=== PATIENT | male | born 1965 | race Caucasian/White ===

== ENCOUNTER 2016-11-03 12:56 | Emergency (ER) | payer MEDICARE, MEDICAID | END 2016-11-03 13:54 | disposition left against medical advice (07) | LOC: UCCORT 12:56 | DX: M79.672 Pain in left foot (principal); Z53.21 Procedure and treatment not carried out due to patient leaving prior to being seen by health care provider ==

== ENCOUNTER 2016-11-04 10:59 | Emergency (ER) | payer MEDICARE, MEDICAID | END 2016-11-04 14:00 | disposition left against medical advice (07) | LOC: UCEAST 10:59 | DX: R21 Rash and other nonspecific skin eruption (principal); Z53.21 Procedure and treatment not carried out due to patient leaving prior to being seen by health care provider ==

== ENCOUNTER 2017-01-16 11:32 | Inpatient (IN) | payer MEDICARE, MEDICAID ==
[2017-01-16] MEDS ORDERED: Aspirin Low Dose CHEW TAB* 81 MG PO ONE (12:02)
[2017-01-16] MEDS ORDERED: NS 0.9% 1000 ML* 1,000 ML IV ONE (12:02)
--- NOTE | 2017-01-16 12:37 | RAD ---
INDICATION: Diabetes mellitus, hypertension and weakness. COMPARISON: Comparison is made with a prior chest x-ray study from November 09, 2015. TECHNIQUE: Dual-energy PA and lateral views of the chest were obtained. FINDINGS: The heart is within normal limits in size. Mediastinal and hilar contours appear within normal limits. The lungs are clear. No pleural effusion is present. IMPRESSION: NO EVIDENCE FOR ACTIVE CARDIOPULMONARY DISEASE.
[2017-01-16 12:56] LABS: Hematocrit 29 % (42-52); Hemoglobin 9.2 g/dl (14.0-18.0); Mean Corpuscular HGB Conc 32 g/dl (31-36); Mean Corpuscular Hemoglobin 27 pg (27-31); Mean Corpuscular Volume 85 fL (80-94); Mean Platelet Volume 8 um3 (7.4-10.4); Red Blood Count 3.41 10^6/ul (4.0-5.4); Red Cell Distribution Width 15 % (10.5-15); White Blood Count 7.7 10^3/ul (3.5-10.8)
[2017-01-16 13:12] LABS: Albumin 3.2 g/dL (3.2-5.2); BUN/Creatinine Ratio 17.3 (8-20); Calcium 9.3 mg/dL (8.6-10.3); EGFR African American 24.7 (>60); EGFR Non-African American 19.2 (>60); Globulin 4.1 g/dL (2-4); Magnesium 1.9 mg/dL (1.9-2.7); Potassium 5.7 mmol/L (3.5-5.0); Total Bilirubin 0.3 mg/dL (0.2-1.0); Total Protein 7.3 g/dL (6.4-8.9)
[2017-01-16 13:14] LABS: Troponin I 0.01 ng/mL (<0.04)
[2017-01-16 13:43] LABS: TSH (Thyroid Stimulating Horm) 1.22 mcIU/mL (0.34-5.60)
[2017-01-16] MEDS ORDERED: Dextrose 50% Syringe 50 ML* 25 GM/50 ML SYRINGE IV PUSH PRN (16:52)
[2017-01-16] MEDS: Insulin LISPRO* 1 UNITS UNIT SUBCUT SCH ×2 (17:55→20:37)
--- NOTE | 2017-01-16 17:57 | ADMNOTE ---
Subjective Date of Service: 01/16/17 Interval History: ADMISSION HISTORY AND PHYSICAL EXAM: Allergies Allergy/AdvReac Type Severity Reaction Status Date / Time Spinach Allergy Swelling Verified 01/16/17 11:59 Sulfamethoxazole Allergy KIDNEY Verified 01/16/17 10:57 w/Trimethoprim PROBLEMS [From Bactrim] Codeine AdvReac Intermediate Dizziness Verified 01/16/17 10:56 Peanutbutter Allergy Intermediate Vomiting Uncoded 01/16/17 10:56 Strawberries Allergy Intermediate Swelling Uncoded 01/16/17 10:56 Home Medications Medication Instructions Recorded Confirmed Type Furosemide TAB* [Lasix TAB*] 40 mg PO DAILY 06/30/15 01/16/17 History Lisinopril/HCTZ (NF) 1 tab PO DAILY 06/30/15 01/16/17 History [Zestoretic (NF)] Insulin Regular (Human) [Novolin R 10 unit INJ TID 07/07/15 01/16/17 History Relion] Insulin Glargine (Nf) [Toujeo 70 unit SUBCUT DAILY 12/16/15 01/16/17 History Solostar] Ferrous Sulfate TAB* 325 mg PO BID 01/16/17 01/16/17 History LORazepam TAB(*) [Ativan 0.5 MG 0.5 mg PO ONCE PRN 01/16/17 01/16/17 History TAB (*)] Levofloxacin TAB* [Levaquin TAB*] 500 mg PO DAILY 01/16/17 01/16/17 History Nifedipine [Nifedical Xl] 60 mg PO QAM 01/16/17 01/16/17 History Ranitidine TAB (NF) [Zantac TAB 150 mg PO BID 01/16/17 01/16/17 History (NF)] cefTRIAXone(*) [Rocephin(*)] 2 gm IV DAILY 01/16/17 01/16/17 History The patient was in his usual state of health this AM. He ate breakfast, took his AM meds including long-acting insulin and levofloxacin. He came to the hospital for his scheduled pre-admission testing. He became lightheaded and very diaphoretic. He appeared very pale to the hospital staff. He sat down and was brought the ED. He has since recovered. He did not have chest pain, SOB, cough, palpitations. He has never had anything this severe before. Family History: Findings - Mother breast ca, DM. Father Alzheimer's, DM Social History: Findings - Quit smoking 4 years ago. No alcohol abuse. Disabled. SDM friend Rolando Holguin Past Medical History: Findings - R great toe amputation, cataract surgery Review of Systems - Review of Systems Constitutional Symptoms: Negative: Weight Gain, Weight Loss, Weakness, Fatigue, Fever, Night Sweats, Unexplained Falls, Other Dermatology: Positive: Normal HEENT: Positive: Normal Eyes: Positive: Normal Thyroid: Positive: Normal Pulmonary: Positive: Normal Cardiology: Positive: Faintness Gastroenterology: Positive: Normal Genital - Urinary: Positive: Normal Musculoskeletal: Positive: Other - Occ pain L calf Endocrinology: Positive: Obesity, Diabetes Mellitus Hematologic/Lymphatic: Positive: Anemia Neurology: Positive: Normal Psychiatry: Positive: Normal Allergic/Immunologic: Negative: Hx Anaphylaxis, Hx Angioedema, Hx Environmental, Hx Seasonal, Athsma, Hx HIV, Immunocompromise, Swollen Glands LymphNodes, Other Objective Active Medications: Dextrose (D50w Syringe 50 Ml*) 12.5 gm IV PUSH .FOR FS < 60 - SS PRN PRN Reason: FS < 60 Insulin Human Lispro (Humalog*) 0 units SUBCUT ACHS JOSE ENRIQUE PRN Reason: Protocol Vital Signs 01/16/17 01/16/17 16:53 16:54 Pulse Rate 72 Blood Pressure 115/70 (mmHg) O2 Sat by Pulse 98 Oximetry Oxygen Devices in Use Now: None Appearance: Alert, partly up on ED stretcher. In good spirits. Looks comfortable. Eyes: No Scleral Icterus Ears/Nose/Mouth/Throat: Clear Oropharnyx, Mucous Membranes Moist Neck: NL Appearance and Movements; NL JVP, No Thyroid Enlargement, Masses Respiratory: Symmetrical Chest Expansion and Respiratory Effort, Clear to Auscultation, Clear to Percussion Cardiovascular: NL Sounds; No Murmurs; No JVD, RRR, No Edema, - Abdominal: NL Sounds; No Tenderness; No Distention, No Hepatosplenomegaly, - Extremities: No Edema, No Clubbing, Cyanosis, - - L foot in hard brace Neurological: Alert and Oriented x 3, NL Sensation Result Diagrams: 01/16/17 12:41 01/16/17 12:41 Assess/Plan/Problems-Billing Assessment: - Patient Problems (1) Pre-syncope Current Visit: Yes Status: Acute Comment: Possible arrhythmia or ischemia. Tele, second troponin, echo, chemical stress test. (2) Osteomyelitis of ankle or foot Current Visit: Yes Status: Acute Code(s): M86.9 - OSTEOMYELITIS, UNSPECIFIED SNOMED Code(s): 52145614 Comment: Continue po levofloxacin. Hopefully he will pass cardiac eval and be able to have his scheduled L forefoot amputation. (3) Diabetes Current Visit: Yes Status: Acute Code(s): E11.9 - TYPE 2 DIABETES MELLITUS WITHOUT COMPLICATIONS SNOMED Code(s): 41953140 Comment: Lantus 70 U q AM and Lispro by SS ordered. (4) CKD (chronic kidney disease) Current Visit: Yes Status: Acute Code(s): N18.9 - CHRONIC KIDNEY DISEASE, UNSPECIFIED SNOMED Code(s): 639341059 Comment: Acute change from 7 days previous to admission probable DIONTE on CKD. Got 1 L in ED, give NSS at 100 ml/h, repeat BMP 01/17. Hold furosemide. (5) Anemia of chronic disease Current Visit: Yes Status: Acute Code(s): D63.8 - ANEMIA IN OTHER CHRONIC DISEASES CLASSIFIED ELSEWHERE SNOMED Code(s): 101078621 Comment: Stable. (6) Morbid obesity Current Visit: Yes Status: Acute Code(s): E66.01 - MORBID (SEVERE) OBESITY DUE TO EXCESS CALORIES SNOMED Code(s): 193177760 Comment: BMI 40.9.
[2017-01-16 19:00] LABS: Ferritin 237.8 ng/mL (24-336)
[2017-01-16] MEDS ORDERED: Sodium Polystyrene ORAL.SOL* 15 GM/60 ML BTL PO ONE (19:00)
[2017-01-16] MEDS: NS 0.9% 1000 ML* 1,000 ML IV SCH (19:16)
[2017-01-16] MEDS: Famotidine TAB* 20 MG PO SCH (20:37)
[2017-01-16] MEDS: Heparin VIAL(*) 5000 UNITS/ML VIAL (FIVE THOUSAND) SUBCUT SCH (20:38)
--- NOTE | 2017-01-16 21:30 | ED ---
micheline Cabral Timothy, scribed for Virginia Silva MD on 01/16/17 at 1208 . Complex/Multi-Sys Presentation - HPI Summary HPI Summary: Tanner Galo is a 51 yo male presenting to [facility] with weakness for the past 3 months, worsening throughout. Pt states he feels better with rest. Pt was a [facility] for pre-admission for amputation of LLE. Pt is lethargic and pale per triage, with a Hx of DM and HTN. He states he has chest heaviness, and has had it for the past 3 months, gradually increasing throughout. Pt also has pain under his left arm, with numbness in the left arm as well. He denies any current pain. His MHx includes HTN, DM, MRSA 2007. - History Of Current Complaint Chief Complaint: EDAltMentalStatus Time Seen by Provider: 01/16/17 12:02 Hx Obtained From: Patient Onset/Duration: Gradual Onset, Lasting Weeks, Still Present, Worse Since - now Timing: Constant Severity Currently: Moderate Severity Initially: Moderate Location: Pain At: - heaviness in the chest Character: Dull Associated Signs And Symptoms: Positive: Weakness, Chest Pain - "heaviness" - Allergies/Home Medications Allergies/Adverse Reactions: Allergies Allergy/AdvReac Type Severity Reaction Status Date / Time Spinach Allergy Swelling Verified 01/16/17 11:59 Sulfamethoxazole Allergy KIDNEY Verified 01/16/17 10:57 w/Trimethoprim PROBLEMS [From Bactrim] Codeine AdvReac Intermediate Dizziness Verified 01/16/17 10:56 Peanutbutter Allergy Intermediate Vomiting Uncoded 01/16/17 10:56 Strawberries Allergy Intermediate Swelling Uncoded 01/16/17 10:56 Home Medications: Home Medications Ferrous Sulfate TAB* 325 mg PO BID 01/16/17 [History Confirmed 01/16/17] LORazepam TAB(*) [Ativan 0.5 MG TAB (*)] 0.5 mg PO ONCE PRN 01/16/17 [History Confirmed 01/16/17] Levofloxacin TAB* [Levaquin TAB*] 500 mg PO DAILY 01/16/17 [History Confirmed ] Nifedipine [Nifedical Xl] 60 mg PO QAM 01/16/17 [History Confirmed 01/16/17] Ranitidine TAB (NF) [Zantac TAB (NF)] 150 mg PO BID 01/16/17 [History Confirmed 01/16/17] cefTRIAXone(*) [Rocephin(*)] 2 gm IV DAILY 01/16/17 [History Confirmed 01/16/17] PMH/Surg Hx/FS Hx/Imm Hx Previously Healthy: No - diabetic foot ulcer/osteomyelitis Endocrine/Hematology History: Reports: Hx Diabetes Denies: Hx Systemic Lupus Erythematosus, Hx Thyroid Disease Cardiovascular History: Reports: Hx Hypertension Denies: Hx Congestive Heart Failure, Hx Pacemaker/ICD Respiratory History: Denies: Hx Asthma, Hx Chronic Obstructive Pulmonary Disease (COPD) GI History: Denies: Hx Ulcer History: Denies: Hx Dialysis, Hx Renal Disease Musculoskeletal History: Denies: Hx Rheumatoid Arthritis Sensory History: Reports: Hx Cataracts Denies: Hx Contacts or Glasses, Hx Hearing Aid Opthamlomology History: Reports: Hx Cataracts Denies: Hx Contacts or Glasses Psychiatric History: Denies: Hx Panic Disorder - Cancer History Hx Chemotherapy: No - Surgical History Surgery Procedure, Year, and Place: right big toe amputation dt diab, pin in big toe of left foot. CATARACT WITH LENS IMPLANTS - BY DR DENNEY. Pt had an ulcer on the bottom of his left foot that turned gangreen 07/2016. Hx Anesthesia Reactions: No Infectious Disease History: Yes Infectious Disease History: Reports: Hx of Known/Suspected MRSA - 2007 in chest Denies: Hx Hepatitis, Hx Human Immunodeficiency Virus (HIV), History Other Infectious Disease, Traveled Outside the [place] in Last 30 Days - Family History Known Family History: Positive: Diabetes Negative: Cardiac Disease - Social History Alcohol Use: None Substance Use Type: Reports: None Substance Use Comment - Amount & Last Used: CHEWING TOBACCO Smoking Status (MU): Light Every Day Tobacco Smoker Type: Cigarettes, Smokeless Tobacco Amount Used/How Often: daily Length of Time of Smoking/Using Tobacco: 20 YEARS Have You Smoked in the Last Year: No Review of Systems Constitutional: Negative Eyes: Negative ENT: Negative Positive: Chest Pain - "heaviness" Respiratory: Negative Gastrointestinal: Negative Genitourinary: Negative Musculoskeletal: Other - pain left arm Skin: Other - pale Positive: Weakness, Numbness - left arm Psychological: Normal All Other Systems Reviewed And Are Negative: Yes Physical Exam Triage Information Reviewed: Yes Vital Signs On Initial Exam: Initial Vitals Temp Pulse Resp BP Pulse Ox 96.3 F 97 20 104/65 100 04/17/17 11:34 01/16/17 11:34 01/16/17 11:34 01/16/17 11:34 01/16/17 11:34 Vital Signs Reviewed: Yes Appearance: Positive: No Pain Distress, Well-Nourished, Ill-Appearing Skin: Positive: Warm, Dry, Pale Head/Face: Positive: Normal Head/Face Inspection Eyes: Positive: EOMI, Conjunctiva Clear ENT: Positive: Normal ENT inspection Neck: Positive: Supple, Nontender Respiratory/Lung Sounds: Positive: Clear to Auscultation, Breath Sounds Present Cardiovascular: Positive: RRR, Pulses are Symmetrical in both Upper and Lower Extremities. Negative: Murmur, Rub, Other - gallop Abdomen Description: Positive: Nontender, Soft Bowel Sounds: Positive: Present Musculoskeletal: Positive: Strength/ROM Intact, Other - wearing post op shoe left foot, wound not assessed in ED, due for amputation left foot with Dr. Galarza, had pre-adm testing scheduled today Neurological: Positive: Alert, Oriented to Person Place, Time. Negative: Focal Deficit @ Psychiatric: Positive: Normal, Affect/Mood Appropriate Diagnostics - Vital Signs Vital Signs Temp Pulse Resp BP Pulse Ox 01/16/17 11:57 98.3 F 87 18 117/67 97 01/16/17 11:34 96.3 F 97 20 104/65 100 - Laboratory Lab Results: Lab Results 01/16/17 01/16/17 01/16/17 Range/Units 12:41 12:41 12:41 WBC 7.7 (3.5-10.8) 10^3/ul RBC 3.41 L (4.0-5.4) 10^6/ul Hgb 9.2 L (14.0-18.0) g/dl Hct 29 L (42-52) % MCV 85 (80-94) fL MCH 27 (27-31) pg MCHC 32 (31-36) g/dl RDW 15 (10.5-15) % Plt Count 210 (150-450) 10^3/ul MPV 8 (7.4-10.4) um3 Neut % (Auto) 75.0 (38-83) % Lymph % (Auto) 12.6 L (25-47) % [place] % (Auto) 9.6 H (1-9) % Eos % (Auto) 2.0 (0-6) % Baso % (Auto) 0.8 (0-2) % Absolute Neuts (auto) 5.8 (1.5-7.7) 10^3/ul Absolute Lymphs (auto) 1.0 (1.0-4.8) 10^3/ul Absolute Monos (auto) 0.7 (0-0.8) 10^3/ul Absolute Eos (auto) 0.2 (0-0.6) 10^3/ul Absolute Basos (auto) 0.1 (0-0.2) 10^3/ul Absolute Nucleated RBC 0 10^3/ul Nucleated RBC % 0 APTT 32.2 (26.0-36.3) seconds Sodium 132 L (133-145) mmol/L Potassium 5.7 H (3.5-5.0) mmol/L Chloride 102 (101-111) mmol/L Carbon Dioxide 22 (22-32) mmol/L Anion Gap 8 (2-11) mmol/L BUN 59 H (6-24) mg/dL Creatinine 3.42 H (0.67-1.17) mg/dL Est GFR ( Amer) 24.7 (>60) Est GFR (Non-Af Amer) 19.2 (>60) BUN/Creatinine Ratio 17.3 (8-20) Glucose 154 H (70-100) mg/dL Calcium 9.3 (8.6-10.3) mg/dL Magnesium 1.9 (1.9-2.7) mg/dL Ferritin 237.8 (24-336) ng/mL Total Bilirubin 0.30 (0.2-1.0) mg/dL AST 11 L (13-39) U/L ALT 9 (7-52) U/L Alkaline Phosphatase 83 (34-104) U/L Total Creatine Kinase 42 (10-223) U/L CK-MB (CK-2) 1.3 (0.6-6.3) ng/mL Troponin I 0.01 (<0.04) ng/mL Total Protein 7.3 (6.4-8.9) g/dL Albumin 3.2 (3.2-5.2) g/dL Globulin 4.1 H (2-4) g/dL Albumin/Globulin Ratio 0.8 L (1-3) TSH 1.22 (0.34-5.60) mcIU/mL Result Diagrams: 01/16/17 12:41 01/16/17 12:41 Lab Statement: Any lab studies that have been ordered have been reviewed, and results considered in the medical decision making process. - Radiology CXR Xray Interpretation: No Acute Changes - IMPRESSION: NO EVIDENCE FOR ACTIVE CARDIOPULMONARY DISEASE. Radiology Interpretation Completed By: Radiologist - EKG 1142 Cardiac Rate: NL - 83 BPM EKG Interpretation: NSR @ 83 BPM, nml AV/IV conduction, PRWP V1, V2. Q in III. No acute changes EKG Comparison: No Significant Change - compared to 01/09/13 Re-Evaluation - Re-Evaluation First Eval Re-Evaluation Time: 15:44 Change: Unchanged Comment: Pt is informed of results of his lab work. He is hyperkalemic with high creatinine, and with his chest pain history, it is unlikely he will be able to have his LLE amputated as scheduled. Metabolic abnormalities and cardiac status will need evaluation in hospital. Pt is agreeable to be admitted. Complex Multi-Symp Course/Dx Assessment/Plan: Tanner Galo is a 51 yo male [facility] with weakness, and chest pain for the past 3 months, gradually worsening throughout. He is scheduled for an amputation of his LLE due to his DM. In the ED he received IV fluids and ASA. His EKG shows PRWP in V1 and V2. His CXR suggests no acute disease. After clinical examination and review of his EKG, CXR, and lab work, as well as discussion with Dr. Thomas, he will be admitted to [facility] for further evaluation and treatment. - Diagnoses Provider Diagnoses: Chest pain, Hyperkalemia, Stage 4 chronic kidney disease, Diabetic ulcer of left foot, Poorly controlled diabetes mellitus - Physician Notifications Discussed Care Of Patient With: 1600 - Dr. Thomas (hospitalist) - discussed Pt condition and risk factors. Agrees to admit Pt. Instructed by Provider To: Admit As Inpatient Discharge - Discharge Plan Condition: Stable Disposition: ADMITTED TO [facility] Discharge Disposition Comment: admission for evaluation and treatment The documentation as recorded by the micheline vicente Timothy accurately reflects the service I personally performed and the decisions made by , Virginia Silva MD.
[2017-01-17] MEDS ORDERED: Morphine INJ* 4 MG/ML 1 ML SYRINGE IV PRN (01:24)
[2017-01-17] MEDS: Heparin VIAL(*) 5000 UNITS/ML VIAL (FIVE THOUSAND) SUBCUT SCH ×3 (05:46→21:15)
[2017-01-17 07:24] LABS: BUN/Creatinine Ratio 19.4 (8-20); Calcium 8.4 mg/dL (8.6-10.3); EGFR African American 26.3 (>60); EGFR Non-African American 20.5 (>60); Potassium 4.9 mmol/L (3.5-5.0)
[2017-01-17] MEDS: Insulin LISPRO* 1 UNITS UNIT SUBCUT SCH ×5 (07:40→21:15)
[2017-01-17] MEDS ORDERED: Perflutren Lipid Microsphere* 3 ML VIAL IV ONE (08:09)
[2017-01-17] MEDS ORDERED: Perflutren Prot Type A Micr (NF) 3 ML SDV IV ONE ×2 (08:09→08:15)
[2017-01-17] MEDS: NS 0.9% 1000 ML* 1,000 ML IV SCH (08:27)
[2017-01-17] MEDS: NIFEdipine ER TAB* 60 MG PO SCH (08:31)
[2017-01-17] MEDS: Famotidine TAB* 20 MG PO SCH ×2 (08:31→21:15)
[2017-01-17] MEDS: Levofloxacin TAB* 500 MG PO SCH (08:31)
[2017-01-17] MEDS: Insulin GLARGINE(*) 1 UNITS UNIT SUBCUT SCH (08:32)
[2017-01-17] MEDS ORDERED: Levofloxacin TAB* 500 MG PO SCH (09:00)
[2017-01-17] MEDS ORDERED: Furosemide TAB* 40 MG PO SCH (09:00)
[2017-01-17] MEDS ORDERED: CEFTRIAXONE 2 GM IV SCH (09:00)
[2017-01-17] MEDS ORDERED: Regadenoson* 0.4 MG/5 ML SYRINGE ONE (10:29)
[2017-01-17] MEDS ORDERED: Aminophylline IV* 25 MG/ML 10 ML VIAL ONE (10:33)
--- NOTE | 2017-01-17 14:34 | PN ---
Subjective Date of Service: 01/17/17 Interval History: This is a 51 yo gentleman with IDDM, CKD, chronic anemia, morbid obesity and osteomyelitis with planned amputation scheduled with Dr Galarza for later this month who presented for preadmission testing yesterday and was quite lightheaded and diaphoretic. He was referred to the ED for further evaluation. He was noted to have some DIONTE and hyperkalemia. He was subsequently admitted for further treatment and evaluation. He underwent the first portion of his stress test today with the 2nd portion scheduled for tomorrow. Patient reported that he had severe chest pain and pressure with the exercise portion of his stress test this am. He was having chest pressure yesterday, but none today. He continues to be quite lightheaded when he stands up. He also reports that he has significant pain in his L calf which has been present for ~1month. He is in a walking boot on that side. Objective Active Medications: Dextrose (D50w Syringe 50 Ml*) 12.5 gm IV PUSH .FOR FS < 60 - SS PRN PRN Reason: FS < 60 Famotidine (Pepcid Tab*) 20 mg PO BID JOSE ENRIQUE PRN Reason: Protocol Last Admin: 01/17/17 08:31 Dose: 20 mg Furosemide (Lasix Tab*) 40 mg PO DAILY [facility] Last Admin: 01/17/17 07:58 Dose: Not Given Heparin Sodium (Porcine) (Heparin Vial(*)) 5,000 units SUBCUT Q8HR [facility] Last Admin: 01/17/17 13:00 Dose: 5,000 units Ceftriaxone Sodium 2 gm/ (Sodium Chloride) 100 mls @ 200 mls/hr IVPB Q24H JOSE ENRIQUE Last Admin: 01/17/17 08:27 Dose: 200 mls/hr Insulin Glargine (Lantus(*)) 70 units SUBCUT DAILY [facility] Last Admin: 01/17/17 08:32 Dose: 70 units Insulin Human Lispro (Humalog*) 0 units SUBCUT ACHS JOSE ENRIQUE PRN Reason: Protocol Last Admin: 01/17/17 12:59 Dose: 3 unit Levofloxacin (Levaquin Tab*) 250 mg PO DAILY [facility] Last Admin: 01/17/17 08:31 Dose: 250 mg Morphine Sulfate (Morphine Inj (Syringe)*) 4 mg IV Q4H PRN PRN Reason: PAIN Last Admin: 01/17/17 01:58 Dose: 4 mg Nifedipine (Procardia Xl Tab*) 60 mg PO QAM [facility] Last Admin: 01/17/17 08:31 Dose: 60 mg Vital Signs: Temp Pulse Resp BP Pulse Ox 97.2 F 84 16 151/100 92 01/17/17 12:21 01/17/17 12:21 01/17/17 12:21 01/17/17 12:21 01/17/17 12:21 Oxygen Devices in Use Now: None Appearance: Well appearing, in NAD Respiratory: Symmetrical Chest Expansion and Respiratory Effort, Clear to Auscultation Cardiovascular: NL Sounds; No Murmurs; No JVD, RRR Abdominal: NL Sounds; No Tenderness; No Distention Extremities: No Edema, - - Dressing in place over L foot and TTP in L calf Skin: No Rash or Ulcers Neurological: Alert and Oriented x 3 Result Diagrams: 01/16/17 12:41 01/17/17 06:54 Additional Lab and Data: . Diagnostic Imaging: CXR - NAD Echo - EF 55-60%, diastolic dysfunction, no valvular disease, dilated IVC Assess/Plan/Problems-Billing Assessment: This is a 51 yo gentleman with osteomyelitis with pending amputation as well as IDDM, CKD, chronic anemia and morbid obesity who presented with lightheadedness and diaphoresis with acute on chronic kidney injury and hyperkalemia. - Patient Problems (1) Pre-syncope Comment: Telemetry unremarkable, troponins negative Echo WNL 2nd portion of stress test pending for tomorrow, chest pain and pressure with his exercise portion today He is c/o L calf pain, will scan for DVT, a PE would explain his presenting symptoms, CTA chest contraindicated with his CKD (2) CKD (chronic kidney disease) Comment: Associated acute on chronic exacerbation No improvement with fluids overnight Consider ATN secondary to Levaquin Levaquin dosing decreased to renal dose Repeat BMP tomorrow, UA with micro ordered (3) Anemia of chronic disease Comment: Stable. (4) Diabetes Comment: IDDM Lantus 70 U q AM and Lispro by SS ordered. (5) Morbid obesity Comment: BMI 41 (6) Osteomyelitis of ankle or foot Comment: Continue po levofloxacin. Hopefully he will pass cardiac eval and be able to have his scheduled L forefoot amputation. (7) Hyperkalemia Comment: Resolved with fluids (8) Full code status (9) DVT prophylaxis Comment: SubQ Heparin Status and Disposition: Patient requires continued hospital care. Transition to inpatient status
--- NOTE | 2017-01-17 15:43 | RAD ---
HISTORY: Left calf pain COMPARISONS: None relevant TECHNIQUE: Multiple transverse and longitudinal ultrasound images were obtained of the left lower extremity from the level of the common femoral vein inferiorly through to the infrapopliteal veins using grayscale, color Doppler, and spectral Doppler imaging with and without compression and with augmentation. Comparison images were obtained of the contralateral common femoral vein. FINDINGS: VEINS: The venous system of the left lower extremity is compressible throughout its course, with normal flow on color Doppler imaging and normal response to augmentation on spectral Doppler imaging. SOFT TISSUES: Unremarkable. OTHER FINDINGS: None. IMPRESSION: NO LEFT LOWER EXTREMITY DEEP VEIN THROMBOSIS
[2017-01-17 17:45] LABS: Urine Bacteria Absent (Absent); Urine Bilirubin Negative (Negative); Urine Glucose 2+(150 mg/dL) (Negative); Urine Nitrite Negative (Negative)
[2017-01-18] MEDS: Heparin VIAL(*) 5000 UNITS/ML VIAL (FIVE THOUSAND) SUBCUT SCH ×2 (06:03→16:18)
[2017-01-18] MEDS: Acetaminophen TAB* 325 MG PO PRN ×2 (06:04→12:08)
[2017-01-18 06:55] LABS: Hematocrit 26 % (42-52); Hemoglobin 8.3 g/dl (14.0-18.0); Mean Corpuscular HGB Conc 32 g/dl (31-36); Mean Corpuscular Hemoglobin 27 pg (27-31); Mean Corpuscular Volume 84 fL (80-94); Mean Platelet Volume 8 um3 (7.4-10.4); Red Blood Count 3.06 10^6/ul (4.0-5.4); Red Cell Distribution Width 15 % (10.5-15); White Blood Count 5.1 10^3/ul (3.5-10.8)
[2017-01-18 07:08] LABS: BUN/Creatinine Ratio 22.5 (8-20); EGFR African American 33.6 (>60); EGFR Non-African American 26.1 (>60)
[2017-01-18] MEDS: Insulin LISPRO* 1 UNITS UNIT SUBCUT SCH ×2 (07:34→12:07)
[2017-01-18] MEDS: Famotidine TAB* 20 MG PO SCH (09:11)
[2017-01-18] MEDS: Levofloxacin TAB* 500 MG PO SCH (09:11)
[2017-01-18] MEDS: Insulin GLARGINE(*) 1 UNITS UNIT SUBCUT SCH (09:12)
[2017-01-18] MEDS: NIFEdipine ER TAB* 60 MG PO SCH (09:12)
--- NOTE | 2017-01-18 09:36 | RAD ---
Edited for charges. INDICATION: Lightheadedness, diaphoresis. COMPARISON: There are no prior studies available for comparison. Technique: A stress myocardial perfusion study was performed on January 17, 2017. Under the direction of Dr. Harrington, the patient was given intervenous injection of Lexiscan. Subsequently the patient was given intravenous injection of 26.1 mCi of technetium 99m tetrofosmin and the heart was imaged in multiple projections. A resting study was performed on January 18, 2017. The patient was given an intravenous injection of 25.1 mCi of technetium 99m tetrofosmin and the heart was imaged in multiple projections. Images were reconstructed in the axial, sagittal and coronal planes as well as in a 3-D format. FINDINGS: There appears to be a mild global hypokinesis. The left ventricular ejection fraction is calculated to be 52% which is similar to the prior study. Review of the images demonstrates mild decreased activity in the inferior wall on both the post pharmacologic stress and resting images which is no longer present on the attenuation corrected images and therefore most consistent with artifact. There is no evidence for ischemia. IMPRESSION: DECREASED EJECTION FRACTION, UNCHANGED FROM THE PRIOR EXAM. NO EVIDENCE FOR FOCAL INFARCT OR ISCHEMIA. ASSESSMENT: Low risk Based on imaging criteria from ACC/AHA 2002 Guideline Update for the Management of Patients With Chronic Stable Angina Table 23. Noninvasive Risk Stratification. MTDD
[2017-01-18] MEDS ORDERED: Morphine INJ* 2 MG/ML 1 ML SYRINGE IV ONE (11:25)
--- NOTE | 2017-01-18 11:45 | PN ---
Subjective Date of Service: 01/18/17 Interval History: Patient seen and examined at bedside. Xu reports feeling better after eating ; he previously reported a GUTIERREZ, which has since resolved. He reports intermittent chest pain that comes with a cough. He denies coughing anything up and states that this has been ongoing for awhile. He reports that he once got an inhaler that helped his chest pain and cough. He reports that his left foot appears more swollen, though it has not increased in tenderness and it is not warm to the touch. He has a planned amputation scheduled with Dr. Galarza next week. He reports that his left calf does not hurt as much today. He would like to try to go home and does have a planned follow up with his PCP tomorrow. Family History: Findings - Mother breast ca, DM. Father Alzheimer's, DM Social History: Findings - Quit smoking 4 years ago. No alcohol abuse. Disabled. SDM friend Rolando Holguin Past Medical History: Findings - R great toe amputation, cataract surgery Objective Active Medications: Acetaminophen (Tylenol Tab*) 650 mg PO Q4H PRN PRN Reason: FEVER/PAIN Last Admin: 01/18/17 06:04 Dose: 650 mg Dextrose (D50w Syringe 50 Ml*) 12.5 gm IV PUSH .FOR FS < 60 - SS PRN PRN Reason: FS < 60 Famotidine (Pepcid Tab*) 20 mg PO BID JOSE ENRIQUE PRN Reason: Protocol Last Admin: 01/18/17 09:11 Dose: 20 mg Heparin Sodium (Porcine) (Heparin Vial(*)) 5,000 units SUBCUT Q8HR [facility] Last Admin: 01/18/17 06:03 Dose: 5,000 units Ceftriaxone Sodium 2 gm/ (Sodium Chloride) 100 mls @ 200 mls/hr IVPB Q24H [facility] Last Admin: 01/18/17 09:11 Dose: 200 mls/hr Insulin Glargine (Lantus(*)) 70 units SUBCUT DAILY [facility] Last Admin: 01/18/17 09:12 Dose: 70 units Insulin Human Lispro (Humalog*) 0 units SUBCUT ACHS JOSE ENRIQUE PRN Reason: Protocol Last Admin: 01/18/17 07:34 Dose: Not Given Levofloxacin (Levaquin Tab*) 250 mg PO DAILY [facility] Last Admin: 01/18/17 09:11 Dose: 250 mg Morphine Sulfate (Morphine Inj (Syringe)*) 4 mg IV Q4H PRN PRN Reason: PAIN Last Admin: 01/17/17 01:58 Dose: 4 mg Nifedipine (Procardia Xl Tab*) 60 mg PO QAM [facility] Last Admin: 01/18/17 09:12 Dose: 60 mg Vital Signs 01/17/17 01/17/17 01/17/17 15:59 19:25 20:00 Temperature 98.0 F 97.9 F Pulse Rate 80 84 Respiratory 20 18 18 Rate Blood Pressure 124/68 140/68 (mmHg) O2 Sat by Pulse 96 96 Oximetry 01/18/17 01/18/17 01/18/17 00:31 04:28 07:16 Temperature 98.3 F 98.1 F Pulse Rate 82 84 81 Respiratory 20 16 Rate Blood Pressure 138/69 135/76 155/76 (mmHg) O2 Sat by Pulse 99 98 Oximetry 01/18/17 07:29 Temperature Pulse Rate Respiratory 18 Rate Blood Pressure (mmHg) O2 Sat by Pulse Oximetry Oxygen Devices in Use Now: None Appearance: Middle aged male patient, lying in bed, in NAD Eyes: PERRLA Neck: NL Appearance and Movements; NL JVP Respiratory: Symmetrical Chest Expansion and Respiratory Effort, Clear to Auscultation Cardiovascular: NL Sounds; No Murmurs; No JVD, RRR Abdominal: NL Sounds; No Tenderness; No Distention Extremities: - - Left foot edema and erythema, erythema within previously marked borders. No warmth with palpation. Wound draining serosanguinous fluid from opening on bottom of left foot. Neurological: Alert and Oriented x 3 Nutrition: Taking PO's Result Diagrams: 01/18/17 06:19 01/18/17 06:19 Additional Lab and Data: . Diagnostic Imaging: CXR - NAD Echo - EF 55-60%, diastolic dysfunction, no valvular disease, dilated IVC Assess/Plan/Problems-Billing Assessment: This is a 51 yo gentleman with osteomyelitis with pending amputation as well as IDDM, CKD, chronic anemia and morbid obesity who presented with lightheadedness and diaphoresis with acute on chronic kidney injury and hyperkalemia. - Patient Problems (1) Pre-syncope Comment: Telemetry unremarkable, troponins negative Echo WNL Stress test unchanged from previous, no evidence of focal infarct or ischemia. US negative for LLE DVT. CTA chest contraindicated with his CKD. Patient reports that his chest pain comes and goes and is often associated with cough, is improved with albuterol inhaler. (2) CKD (chronic kidney disease) Code(s): N18.9 - CHRONIC KIDNEY DISEASE, UNSPECIFIED Comment: Creatinine improved Associated acute on chronic exacerbation Suspect ATN secondary to Levaquin Continue renally dosed levofloxacin UA positive for protein and glucose Patient may benefit from outpatient nephrology referral, due to decreasing GFR. (3) Anemia of chronic disease Code(s): D63.8 - ANEMIA IN OTHER CHRONIC DISEASES CLASSIFIED ELSEWHERE Comment : Stable. Will add on erythropoeitin (4) Diabetes Code(s): E11.9 - TYPE 2 DIABETES MELLITUS WITHOUT COMPLICATIONS Comment: IDDM Lantus 70 U q AM and Lispro by SS ordered. (5) Morbid obesity Code(s): E66.01 - MORBID (SEVERE) OBESITY DUE TO EXCESS CALORIES Comment: BMI 41 (6) Osteomyelitis of ankle or foot Code(s): M86.9 - OSTEOMYELITIS, UNSPECIFIED Comment: Continue PO levofloxacin (renally dosed) F/u with PCP tomorrow to complete pre-operative clearance. Plan for L forefoot amputation next week. (7) Hyperkalemia Code(s): E87.5 - HYPERKALEMIA Comment: Resolved with fluids (8) DVT prophylaxis Code(s): THD6682 - Comment: SQ Heparin (9) Full code status Code(s): Z78.9 - OTHER SPECIFIED HEALTH STATUS Status and Disposition: Patient requires continued hospital care. Transition to inpatient status
[2017-01-18] MEDS ORDERED: Albuterol HFA INHALER* 8 gm MDI INH PRN (14:24)
[2017-01-18 15:26] VITALS: BP 143/81
--- NOTE | 2017-01-19 02:12 | DS ---
DISCHARGE SUMMARY: DATE OF ADMISSION: 01/16/17 DATE OF DISCHARGE: 01/18/17 ATTENDING PHYSICIAN: Cristiana Mcconnell MD* (dictated by Devante Llamas NP) PRIMARY CARE PHYSICIAN: Dr. Rodriguez. PRIMARY DISCHARGE DIAGNOSES: 1. Presyncope. 2. Acute on chronic kidney injury. 3. Chest pain. 4. Anemia. SECONDARY DISCHARGE DIAGNOSES: 1. Osteomyelitis of the left foot. 2. Insulin dependent diabetes with diabetic neuropathy. 3. Obesity. 4. Depression. 5. Right great toe amputation. 6. Peripheral vascular disease. 7. Hyperlipidemia. 8. Hypertension. MEDICATIONS ON DISCHARGE: 1. Zestoretic 1 tab daily. 2. Nifedipine 60 mg q.a.m. 3. Furosemide 40 mg daily. 4. Insulin glargine 70 units subcutaneously daily. 5. Ranitidine 150 mg b.i.d. 6. Regular insulin 10 units t.i.d. 7. Lorazepam 0.5 mg p.r.n. barometric chamber treatment. 8. Ferrous sulfate 325 mg b.i.d. 9. Levofloxacin 250 mg daily. This is a change from the previous dosing of 500 mg, this has been adjusted for the patient's renal function. 10. Ceftriaxone 2 g IV daily. 11. Albuterol inhaler 2 puffs inhaled every 4 hours p.r.n. This is a new medication. DIAGNOSTIC TESTING DURING THIS ADMISSION: Chest x-ray from 01/16/17 shows no evidence for active cardiopulmonary disease. Echocardiogram report from ; findings: The left ventricular chamber size is normal. Mild concentric left ventricular hypertrophy is observed. Global left ventricular wall motion and contractility are within normal limits. The estimated ejection fraction is 55% to 60%. Abnormal left ventricular diastolic function is observed. The left atrium is slightly dilated. The right ventricular chamber size and systolic function are within normal limits. The right atrial cavity size is normal. The aortic valve is trileaflet. There is no evidence of aortic regurgitation. There is no evidence of aortic stenosis. The mitral valve leaflets appear normal. There is no evidence of mitral regurgitation. There is no evidence of mitral stenosis. The tricuspid valve leaflets are normal. There is trace tricuspid regurgitation. Unable to estimate the right ventricular systolic pressure. The pulmonic valve appears normal. There is a trace pulmonic regurgitation. There is no pulmonic stenosis. There is no significant pericardial effusion. The aortic root appears normal. There is no dilatation of the aortic arch. The main pulmonary artery is not well visualized. No prior studies available for comparison at the time of interpretation. Venous Doppler study on 01/17/17 of the left lower extremity shows no left lower extremity deep vein thrombosis. Nuclear medicine scan from 01/17/17 and 01/18/17; findings: There appears to be a mild global hypokinesis. The left ventricular ejection fraction is calculated to be 52%, which is similar to the prior study. Review of the images demonstrates mild decreased activity in the inferior wall on both the post pharmacologic stress and resting images, which is no longer present and the attenuation corrected images and therefore, most consistent with artifacts. There is no evidence for ischemia. Impression: Decreased ejection fraction, unchanged from the prior exam. No evidence for focal infarct or ischemia. Assessment: Low risk. HOSPITAL COURSE OF STAY: For full details, please refer to the H and P provided by Dr. Manning on 01/16/17. In summary, the patient presented to the hospital on 01/16/17 for his scheduled preadmission testing. While waiting, he was noted to have become very lightheaded and diaphoretic. He was taken to the ER for further evaluation. At that time, he denied chest pain, shortness of breath, cough or palpitations. The patient was admitted with concern for presyncope and was monitored on telemetry. His troponins were monitored and were noted to be negative at 0.01, 0.00 and 0.00. An echocardiogram was done with results as previously mentioned and the patient underwent a chemical stress test, please see above. In regards to his osteomyelitis of his left foot , the patient was continued on his home p.o. levofloxacin. However, when the patient was admitted, it was noted that his creatinine was elevated beyond its baseline and he was noted to have significant hyperkalemia. He was treated with Kayexalate and given IV fluids. His potassium did improve; however, his creatinine stayed elevated at 3.24 the following day. It was felt that this may represent an acute tubular necrosis secondary to the patient's Levaquin and we did renally dose his medication. The patient did have improved renal function the following day with a creatinine of 2.62. The patient's furosemide was held these past few days in order to better evaluate and minimize any further damage to the patient's kidneys. The patient is noted to have anemia of chronic disease. His H and H has remained relatively stable here. I did add an erythropoietin level; however, this has not been run yet. With his negative stress test and negative ultrasound and no further presyncopal symptoms, the patient appeared ready for discharge. He was able to ambulate in the hallways without difficulty and showed no signs of lightheadedness or further syncopal episodes. No acute events noted on telemetry that would explain the patient's symptoms. He has remained in sinus rhythm. The patient has complained of chest pain off and on and was noted to have chest pain during his stress test. This was during the stress portion of the nuclear stress test. However, in discussion with the patient, he states that he once took a medication via nebulizer that helped with his chest pain. He described the chest pain as being worsened by cough. He states that following the coughing that he has, he has notable chest tightness and pain. The patient was given an albuterol inhaler to use p.r.n. and states that this has helped him out immensely with his symptoms and denies any further chest pain following the albuterol. I did discuss with the patient given his smoking history that he may have some COPD and that he should pursue a pulmonary function testing with his PCP. Additionally, given the patient's renal function here in the hospital and his decreasing GFR over time, he may benefit from a nephrology consult with Dr. Ramirez. Patient's GFR was 19.2 on admission and it has improved to 26.1; however , given his many comorbidities including insulin-dependent diabetes and hypertension, the patient is at risk for continued worsening renal function and dialysis in the future. Please also refer to the patient's erythropoietin level , which should be pending as he does seem to show anemia of chronic disease. He may benefit from erythropoietin injections if his levels should prove to be normal or less than normal. The patient was advised to follow up with Dr. Rodriguez tomorrow or as previously scheduled. He did report that his left foot appeared more swollen but realizes that he has stopped his Lasix. The foot is not warm to touch and the redness that is there is within the borders that were previously drawn by the [facility]. There is no increased pain or tenderness to the foot. He just notes that there has been more weeping. The patient was advised to restart his Lasix tomorrow and to keep the foot elevated. Again, he will follow up with his PCP tomorrow who can re- evaluate the foot. He has not demonstrated any leukocytosis or fevers while he is here and he is able to walk on the foot. CONCERNS AT DISCHARGE: Mr. Galo will be discharged to home on 01/18/17 with the plan to follow up with his PCP tomorrow on 01/19/17. DIET: Consistent carbohydrate heart healthy diet. ACTIVITY: As tolerated. WOUND CARE: The patient should continue with home wound care as previously prescribed by the [facility]. The patient was offered a wound care consult here in the hospital prior to discharge in order to help redress his wound. However, the patient did decline stating that he would take care of this at home. CONDITION: Improved, stable. DISPOSITION: To home. TIME SPENT: Time spent on this discharge was approximately 50 minutes. Again, this is only a brief summary of the patient's hospital course of stay. For full details, please refer to the full medical record. If you have any further questions or need further assistance, please feel free to contact me at [phone]. DEVANTE LLAMAS NP CC: Dr. Rodriguez* [id number]/[facility] #: [id number] MTDD
== END 2017-01-18 17:34 | disposition home or self-care (01) | DRG 640 ==
LOC: ED 11:32 → MEDTELE 16:50 → OBSVTOIN 01-17 14:11
PROVIDERS: ADMIT Internal Medicine; ATTEND Internal Medicine
DX: E87.5 Hyperkalemia (principal); N17.0 Acute kidney failure with tubular necrosis; M86.9 Osteomyelitis, unspecified; E11.40 Type 2 diabetes mellitus with diabetic neuropathy, unspecified; E11.22 Type 2 diabetes mellitus with diabetic chronic kidney disease; Z68.41 Body mass index [BMI] 40.0-44.9, adult; R55 Syncope and collapse; D63.8 Anemia in other chronic diseases classified elsewhere; J44.9 Chronic obstructive pulmonary disease, unspecified; R07.9 Chest pain, unspecified; E11.69 Type 2 diabetes mellitus with other specified complication; E11.51 Type 2 diabetes mellitus with diabetic peripheral angiopathy without gangrene; E78.5 Hyperlipidemia, unspecified; Z89.411 Acquired absence of right great toe; Z79.4 Long term (current) use of insulin; Z86.14 Personal history of Methicillin resistant Staphylococcus aureus infection; Z88.8 Allergy status to other drugs, medicaments and biological substances; Z88.5 Allergy status to narcotic agent; Z91.018 Allergy to other foods; Z98.42 Cataract extraction status, left eye; Z98.41 Cataract extraction status, right eye; Z96.1 Presence of intraocular lens; Z83.3 Family history of diabetes mellitus; F17.210 Nicotine dependence, cigarettes, uncomplicated; Z80.3 Family history of malignant neoplasm of breast; Z82.0 Family history of epilepsy and other diseases of the nervous system; E66.01 Morbid (severe) obesity due to excess calories; N18.9 Chronic kidney disease, unspecified; D53.9 Nutritional anemia, unspecified; M79.605 Pain in left leg; I07.1 Rheumatic tricuspid insufficiency; I37.1 Nonrheumatic pulmonary valve insufficiency; T37.8X5A Adverse effect of other specified systemic anti-infectives and antiparasitics, initial encounter; I12.9 Hypertensive chronic kidney disease with stage 1 through stage 4 chronic kidney disease, or unspecified chronic kidney disease
CPT/HCPCS: 36415; 71020; 78452; 80048; 80053; 81003; 81015; 82550; 82553; 82668; 82728; 83735; 84443; 84484; 85025; 85730; 93005; 93017; 93306; 94640; A9270-GY; A9502; C8929; G0378; J0280; J0696; J1644; J2270; J2785; Q9956

== ENCOUNTER 2017-01-23 12:04 | Inpatient (IN) | payer MEDICARE, MEDICAID ==
[~2017-01-23 12:04] MED LIST: Buffered Lidocaine 1% SYRIN* 3 ML/SYR SYRINGE INTRADERM ONE
[2017-01-23] MEDS ORDERED: ceFAZolin 2 GM PREMIX(*) 2 GM/50 ML BAG IVPB ONE (12:07)
[2017-01-23] MEDS ORDERED: ceFAZolin 1 GM in Dextrose (*) 1 GM/50 ML BAG IVPB ONE (12:07)
[2017-01-23 13:58] LABS: EGFR African American 28.6 (>60); EGFR Non-African American 22.3 (>60); Potassium 5.3 mmol/L (3.5-5.0)
[2017-01-23] MEDS ORDERED: Insulin REGULAR(*) 1 UNITS UNIT ONE (14:09)
[2017-01-23] MEDS ORDERED: Bupivacaine 0.5% SDV PF* 30 ML VIAL ONE (15:03)
[2017-01-23] MEDS ORDERED: Midazolam* 1 MG/ML 5 ML VIAL (5 MG) ONE (15:11)
[2017-01-23] MEDS ORDERED: fentaNYL* 50 MCG/ML 2 ML VIAL (100 MCG VIAL) ONE (15:11)
[2017-01-23] MEDS ORDERED: Chloroprocaine 2%* 20 ML VIAL ONE (15:11)
[2017-01-23] MEDS ORDERED: fentaNYL* 50 MCG/ML 2 ML VIAL (100 MCG VIAL) IV PRN (15:44)
[2017-01-23] MEDS ORDERED: Midazolam* 1 MG/ML 2 ML VIAL (2 MG) ONE (16:06)
[2017-01-23] MEDS ORDERED: traZODone TAB* 50 MG TAB PO PRN (16:34)
[2017-01-23] MEDS ORDERED: diPHENhydraMINE IV* 50 MG/ML 1 ml VIAL (BENADRYL) IV PRN (16:34)
[2017-01-23] MEDS ORDERED: Albuterol HFA INHALER* 8 gm MDI INH PRN (16:39)
[2017-01-23] MEDS ORDERED: LORazepam TAB(*) 0.5 MG PO PRN (16:39)
[2017-01-23] MEDS ORDERED: Vancomycin(*) 1,000 MG in NS 0.9% 250 ML* 250 ML IVPB SCH (17:00)
[2017-01-23] MEDS ORDERED: Dextrose 50% Syringe 50 ML* 25 GM/50 ML SYRINGE IV PUSH PRN (19:00)
--- NOTE | 2017-01-23 19:11 | CONSULT ---
Subjective Date of Service: 01/23/17 Interval History: 51 yo M with hx of HTN, HLD, IDDM, PVD, depression, CKD presented to the hospital and is now s/p L TMA. Patient was recently hospitalized for a presyncopal episode when he was at the hospital for his pre-op visit and underwent a cardiac stress test that did not show any infarct of ischemia. He says he tolerated today's surgery well. He has no complaints at present aside from a cough that he thinks may be asthma or COPD. He used to smoke 2 PPD. He denies any pain, nausea or any discomfort at present. Family History: Findings - M - Breast Ca, DM, F - DM, Alzheimer's Social History: Findings - Quit smoking 4 years ago after 40 pack year hx, no ETOH Past Medical History: Findings - IDDM, HTN, HLD, CKD, peripheral neuropathy, depression Review of Systems - Measurements Intake and Output: Intake and Output Last 24 Hours 01/21/17 01/22/17 01/23/17 01/24/17 06:59 06:59 06:59 06:59 Intake Total 1100 Balance 1100 Weight 156.489 kg 151.999 kg Intake: IV Fluids 1100 CEFAZOLIN 3 GM 100 lr 1000 - Review of Systems Dermatology: Positive: Normal HEENT: Positive: Normal Eyes: Positive: Normal Thyroid: Positive: Normal Pulmonary: Positive: Cough Cardiology: Positive: Chest Pain Gastroenterology: Positive: Normal Genital - Urinary: Positive: Normal Endocrinology: Positive: Normal Neurology: Positive: Numbness\Paresthesiae Objective Active Medications: Albuterol (Ventolin Hfa Inhaler*) 2 puff INH Q4H PRN Aspirin (Aspirin Tab*) 325 mg PO DAILY JOSE ENRIQUE Atorvastatin Calcium (Lipitor*) 10 mg PO QAM JOSE ENRIQUE Dextrose (D50w Syringe 50 Ml*) 12.5 gm IV PUSH .FOR FS < 60 - SS PRN Diphenhydramine HCl (Benadryl Iv*) 25 mg IV Q6H PRN Docusate Sodium (Colace Cap*) 100 mg PO BID JOSE ENRIQUE Famotidine (Pepcid Tab*) 20 mg PO BID JOSE ENRIQUE Hydrochlorothiazide (Hydrodiuril Tab*) 25 mg PO QAM JOSE ENRIQUE Hydrochlorothiazide (Hydrodiuril Tab*) 25 mg PO DAILY JOSE ENRIQUE Lactated Ringer's (Lactated Ringers 1000 Ml Bag*) 1,000 mls @ 75 mls/hr IV PER RATE JOSE ENRIQUE Vancomycin HCl 2,000 mg/ (Sodium Chloride) 500 mls @ 250 mls/hr IVPB ONCE ONE Piperacillin Sod/Tazobactam Sod (Zosyn 3.375 Gm In Ns Premix*) 3.375 gm in 100 mls @ 25 mls/hr IVPB Q8H JOSE ENRIQUE Insulin Glargine (Lantus(*)) 70 units SUBCUT Q24H JOSE ENRIQUE Insulin Human Lispro (Humalog*) 0 - 15 units SUBCUT AC JOSE ENRIQUE Lisinopril (Prinivil Tab*) 29 mg PO QAM JOSE ENRIQUE Lorazepam (Ativan Tab(*)) 0.5 mg PO ONCE PRN Morphine Sulfate (Morphine Inj (Syringe)*) 2 mg IV Q2H PRN Multivitamins (Theragran Tab*) 1 tab PO DAILY JOSE ENRIQUE Nifedipine (Procardia Xl Tab*) 60 mg PO QAM JOSE ENRIQUE Ondansetron HCl (Zofran Inj*) 4 mg IV Q6H PRN Oxycodone HCl (Roxycodone Tab*) 10 mg PO Q4H PRN Trazodone HCl (Desyrel Tab*) 25 mg PO BEDTIME PRN Vital Signs 01/23/17 01/23/17 01/23/17 13:03 16:36 16:40 Temperature 97.0 F 97.7 F Pulse Rate 95 96 88 Respiratory 18 12 15 Rate Blood Pressure 105/64 139/95 142/88 (mmHg) O2 Sat by Pulse 98 99 99 Oximetry 01/23/17 01/23/17 17:49 18:43 Temperature 98.0 F Pulse Rate 78 Respiratory 16 16 Rate Blood Pressure 138/80 (mmHg) O2 Sat by Pulse 99 Oximetry Oxygen Devices in Use Now: None Appearance: Middle-aged, M, laying in bed in NAD Eyes: No Scleral Icterus Ears/Nose/Mouth/Throat: Mucous Membranes Moist Neck: NL Appearance and Movements; NL JVP Respiratory: Symmetrical Chest Expansion and Respiratory Effort, Clear to Auscultation Cardiovascular: NL Sounds; No Murmurs; No JVD, RRR Abdominal: NL Sounds; No Tenderness; No Distention Lymphatic: No Cervical Adenopathy Extremities: No Edema, - - S/P R great toe amputations, s/p L TMA, wound dressing in place Skin: No Rash or Ulcers Neurological: Alert and Oriented x 3, - - No sensation distal to knees B/L Result Diagrams: 01/23/17 12:57 Microbiology and Other Data: Microbiology 01/23/17 15:54 Gram Stain - Final Wound - Left Assessment/Plan - Billing 51 yo M with hx of HTN, HLD, IDDM, CKD, peripheral neuropathy s/p L TMA for chronic osteomyelitis 1) S/P L TMA - management as per ortho - patient currently on Vanc/Zosyn 2) IDDM - will start Lantus 70 units daily tomorrow (patient took 30 units at home this AM pre-op) - HISS 3) CKD - creatinine is up slightly from recent discharge - agree with LR - will hold Lasix for now 4) HTN - continue home, Nifedpine, HCTZ (is on at home in combination pill and as solo medication) and Lisinopril 5) Possible COPD - continue prn albuterol - will start Spiriva daily 6) DVT PPX - full dose ASA as per ortho Thank you for this consult, will continue to follow
[2017-01-23] MEDS ORDERED: Vancomycin per Pharmacy* NOTE FOLLOW UP PRN (19:17)
[2017-01-23] MEDS: Piperac/Tazob 3.375 gm in NS* 3.375 GM/100 ML BAG IVPB SCH (19:18)
[2017-01-23] MEDS: Insulin LISPRO* 1 UNITS UNIT SUBCUT SCH (19:19)
[2017-01-23] MEDS: NS 0.9% 1000 ML* 1,000 ML IV SCH (19:32)
[2017-01-23] MEDS ORDERED: Spiriva Inhaler DEVICE* 1 EACH DEVICE INH ONE (20:00)
[2017-01-23] MEDS ORDERED: Vancomycin(*) 2,000 MG in NS 0.9% 500 ML BAG* 500 ML IVPB ONE (20:00)
[2017-01-23] MEDS: Tiotropium CAP.INH* CAP.INH/18 MCG INH SCH (20:14)
[2017-01-23] MEDS: Famotidine TAB* 20 MG PO SCH (20:14)
[2017-01-23] MEDS: Docusate CAP* 100 MG PO SCH (20:15)
[2017-01-24] MEDS: oxyCODONE TAB* 5 MG TAB PO PRN ×2 (00:18→21:01)
[2017-01-24] MEDS: Morphine INJ* 2 MG/ML 1 ML SYRINGE IV PRN (01:51)
[2017-01-24] MEDS: Piperac/Tazob 3.375 gm in NS* 3.375 GM/100 ML BAG IVPB SCH ×3 (04:05→19:41)
[2017-01-24 05:58] LABS: Hematocrit 25 % (42-52)
[2017-01-24 06:07] LABS: BUN/Creatinine Ratio 14.8 (8-20); Calcium 8.6 mg/dL (8.6-10.3); EGFR African American 32.5 (>60); EGFR Non-African American 25.2 (>60); Potassium 5.5 mmol/L (3.5-5.0)
[2017-01-24] MEDS ORDERED: Insulin GLARGINE(*) 1 UNITS UNIT SUBCUT SCH (08:00)
[2017-01-24] MEDS: Tiotropium CAP.INH* CAP.INH/18 MCG INH SCH (08:16)
[2017-01-24] MEDS ORDERED: Furosemide TAB* 40 MG PO SCH (09:00)
[2017-01-24] MEDS: NS 0.9% 1000 ML* 1,000 ML IV SCH (09:20)
[2017-01-24] MEDS: Aspirin TAB* 325 MG PO SCH (09:22)
[2017-01-24] MEDS: Vitamin THERAPEUTIC TAB PO SCH (09:23)
[2017-01-24] MEDS: Atorvastatin* 10 MG TAB PO SCH (09:23)
[2017-01-24] MEDS: Docusate CAP* 100 MG PO SCH ×2 (09:23→21:01)
[2017-01-24] MEDS: Famotidine TAB* 20 MG PO SCH ×2 (09:23→21:01)
[2017-01-24] MEDS: Ondansetron INJ* 2 MG/ML VIAL IV PRN (09:24)
[2017-01-24] MEDS: Insulin LISPRO* 1 UNITS UNIT SUBCUT SCH ×3 (09:26→17:19)
[2017-01-24] MEDS: Insulin GLARGINE(*) 1 UNITS UNIT SUBCUT SCH (09:26)
--- NOTE | 2017-01-24 10:44 | PN ---
Progress Note - Progress Note SOAP: Subjective: []Patient seen OOB in chair. Pain well managed. Concerned about home situation , has stairs to get to his bathroom. Had an episode of dizziness this am whe he first got up, states this is a daily occurrence for him. Objective: [] Vital Signs Temp 98.5 F 01/24/17 07:35 Pulse 73 01/24/17 07:35 Resp 18 01/24/17 08:00 BP 100/44 01/24/17 07:35 Pulse Ox 97 01/24/17 08:00 Intake & Output 01/23/17 01/24/17 01/24/17 18:59 06:59 18:59 Intake Total 1100 3162 193 Output Total 700 Balance 1100 2462 193 Weight 335 lb 1.6 oz Intake: IV Fluids 1100 905 193 CEFAZOLIN 3 GM 100 NS (0.9%) 905 193 lr 1000 IVPB 117 ABX - ZOSYN 117 Oral 2140 Output: Urine 700 Laboratory Results - last 24 hr 01/23/17 01/23/17 01/23/17 12:30 12:57 12:57 Hgb Hct INR (Anticoag Therapy) 1.13 H Sodium 131 L Potassium 5.3 H Chloride 102 Carbon Dioxide 23 Anion Gap 6 BUN 43 H Creatinine 3.01 H Est GFR ( Amer) 28.6 Est GFR (Non-Af Amer) 22.3 BUN/Creatinine Ratio Glucose POC Glucose (mg/dL) 203 H Calcium 01/23/17 01/23/17 01/24/17 16:37 21:16 04:51 Hgb 8.0 L Hct 25 L INR (Anticoag Therapy) Sodium Potassium Chloride Carbon Dioxide Anion Gap BUN Creatinine Est GFR ( Amer) Est GFR (Non-Af Amer) BUN/Creatinine Ratio Glucose POC Glucose (mg/dL) 118 H 192 H Calcium 01/24/17 01/24/17 04:51 07:52 Hgb Hct INR (Anticoag Therapy) Sodium 131 L Potassium 5.5 H Chloride 104 Carbon Dioxide 22 Anion Gap 5 BUN 40 H Creatinine 2.70 H Est GFR ( Amer) 32.5 Est GFR (Non-Af Amer) 25.2 BUN/Creatinine Ratio 14.8 Glucose 154 H POC Glucose (mg/dL) 169 H Calcium 8.6 Left foot IRMA/ dressing is dry and intact Assessment: []s/p left transmetatarsal amputation for osteo left foot POD #1 Plan: []PT/OT NWB LLE IV Zosyn- abx plan per Dr. Martinez
[2017-01-24] MEDS: NIFEdipine ER TAB* 60 MG PO SCH (11:21)
[2017-01-24] MEDS: Hydrochlorothiazide TAB* 25 MG PO SCH ×2 (11:21)
[2017-01-24] MEDS: Lisinopril TAB* 10 MG PO SCH (11:21)
--- NOTE | 2017-01-24 14:04 | OP ---
DATE OF OPERATION: 01/23/17 - ROOM #332 DATE OF : 69 ATTENDING SURGEON: Robert Galarza MD. MORGUE TECHNICIAN: Anabela Morales PA-C. ANESTHESIOLOGIST: Celso Watts MD ANESTHESIA: Spinal PRE-OP DIAGNOSIS: Chronic osteomyelitis of the left forefoot. POST-OP DIAGNOSIS: OPERATIVE PROCEDURE: Left Lisfranc disarticulation and tendo-Achilles release. DESCRIPTION OF PROCEDURE: The patient was taken to the operating room where 1 cm incision was made medial to the base of the tendo Achilles. This area was released percutaneously with a 15 blade. A 3-0 nylon suture was placed at the tendo- Achilles release. We then made a transverse fishmouth incision over the mid portion of the left mid foot. Previously, we isolated the necrotic and infected toes and plantar ulcers with the Ioban dressing. We dissected down to the dorsum of the proximal metatarsals and dissected then proximally to the Lisfranc articulation, which was disarticulated. The first cuneiform, which was prominent was shaved back about 5 or 6 mm and the plantar aspects of these cuneiforms were rounded with a microsagittal saw. We then divided the plantar flap to disarticulate the forefoot. This was sent to pathology. We irrigated thoroughly, dropping the tourniquet and obtaining hemostasis with interrupted 2-0 Vicryl sutures. Cultures were sent from this area and then thoroughly irrigated. We closed the dorsal to plantar flaps with #1 Vicryl, subcutaneous closure with 2-0 Vicryl and interrupted 2-0 Surgipro for the skin. A compression dressing and plaster splint was applied. [id number]/[facility] #: [id number] [facility]
[2017-01-24] MEDS ORDERED: Acetaminophen TAB* 325 MG ONE (16:21)
--- NOTE | 2017-01-24 16:37 | PN ---
Progress Note - Progress Note SOAP: Subjective: DOS: 01/24/17 CC: osteomyelitis HPI: 51 yo man with longstanding left foot wound, complicated by osteomyelitis and cellulitis, now admitted for amputation which he tolerated well. No fever, rash, or diarrhea. Objective: [] Vital Signs Temp 37.0 C 01/24/17 15:17 Pulse 88 01/24/17 15:17 Resp 16 01/24/17 15:17 BP 114/72 01/24/17 15:17 Pulse Ox 100 01/24/17 15:17 Intake & Output 01/23/17 01/24/17 01/24/17 18:59 06:59 18:59 Intake Total 1100 3162 593 Output Total 700 800 Balance 1100 2462 -207 Weight 335 lb 1.6 oz Intake: IV Fluids 1100 905 193 CEFAZOLIN 3 GM 100 NS (0.9%) 905 193 lr 1000 IVPB 117 ABX - ZOSYN 117 Oral 2140 400 Output: Urine 700 800 Gen:AAOx3 HEENT:PERRL, MMM Neck:Supple Heart:RRR no murmur Lungs:CTA BL Abd:+BS NTND soft Skin: no rash MSK: L foot casted Laboratory Results - last 24 hr 01/23/17 01/23/17 01/24/17 16:37 21:16 04:51 Hgb 8.0 L Hct 25 L Sodium Potassium Chloride Carbon Dioxide Anion Gap BUN Creatinine Est GFR ( Amer) Est GFR (Non-Af Amer) BUN/Creatinine Ratio Glucose POC Glucose (mg/dL) 118 H 192 H Calcium 01/24/17 01/24/17 01/24/17 04:51 07:52 11:28 Hgb Hct Sodium 131 L Potassium 5.5 H Chloride 104 Carbon Dioxide 22 Anion Gap 5 BUN 40 H Creatinine 2.70 H Est GFR ( Amer) 32.5 Est GFR (Non-Af Amer) 25.2 BUN/Creatinine Ratio 14.8 Glucose 154 H POC Glucose (mg/dL) 169 H 175 H Calcium 8.6 Assessment: 1. chronic osteomyelitis, left foot s/p amputation 2. IDDM 3. CKD 4. morbid obesity Plan: 1. vancomycin goal tr 15-20 and zosyn at current dose (Decr GFR but obese) while awaiting wound cultures which are negative to date. Will plan on 2 weeks of IV antibiotics, particular abx pending culture results.
[2017-01-24] MEDS ORDERED: Vancomycin Random Level* NOTE FOLLOW UP ONE (21:00)
[2017-01-24] MEDS ORDERED: Vancomycin(*) 1,250 MG in NS 0.9% 250 ML* 250 ML IVPB SCH (23:00)
--- NOTE | 2017-01-24 23:12 | PN ---
Subjective Date of Service: 01/24/17 Interval History: Patient feels better. Hoping he will be able to ride his motorcycle sometime soon. Family History: Findings - M - Breast Ca, DM, F - DM, Alzheimer's Social History: Findings - Quit smoking 4 years ago after 40 pack year hx, no ETOH Past Medical History: Findings - IDDM, HTN, HLD, CKD, peripheral neuropathy, depression Objective Active Medications: Acetaminophen (Tylenol Tab*) 650 mg PO Q4H PRN PRN Reason: PAIN Albuterol (Ventolin Hfa Inhaler*) 2 puff INH Q4H PRN PRN Reason: SOB/WHEEZING Aspirin (Aspirin Tab*) 325 mg PO DAILY [facility] Last Admin: 01/24/17 09:22 Dose: 325 mg Atorvastatin Calcium (Lipitor*) 10 mg PO QAM [facility] Last Admin: 01/24/17 09:23 Dose: 10 mg Dextrose (D50w Syringe 50 Ml*) 12.5 gm IV PUSH .FOR FS < 60 - SS PRN PRN Reason: FS < 60 Diphenhydramine HCl (Benadryl Iv*) 25 mg IV Q6H PRN PRN Reason: itching Docusate Sodium (Colace Cap*) 100 mg PO BID [facility] Last Admin: 01/24/17 21:01 Dose: 100 mg Famotidine (Pepcid Tab*) 20 mg PO BID [facility] PRN Reason: Protocol Last Admin: 01/24/17 21:01 Dose: 20 mg Hydrochlorothiazide (Hydrodiuril Tab*) 25 mg PO QAM [facility] Last Admin: 01/24/17 11:21 Dose: Not Given Hydrochlorothiazide (Hydrodiuril Tab*) 25 mg PO DAILY [facility] Last Admin: 01/24/17 11:21 Dose: Not Given Piperacillin Sod/Tazobactam Sod (Zosyn 3.375 Gm In Ns Premix*) 3.375 gm in 100 mls @ 25 mls/hr IVPB Q8H [facility] Last Admin: 01/24/17 19:41 Dose: 25 mls/hr Sodium Chloride (Ns 0.9% 1000 Ml*) 1,000 mls @ 75 mls/hr IV PER RATE [facility] Last Admin: 01/24/17 09:20 Dose: 75 mls/hr Vancomycin HCl 1,250 mg/ (Sodium Chloride) 250 mls @ 166.667 mls/hr IVPB Q12H [facility] Insulin Glargine (Lantus(*)) 70 units SUBCUT Q24H [facility] Last Admin: 01/24/17 09:26 Dose: 70 unit Insulin Human Lispro (Humalog*) 0 - 15 units SUBCUT AC [facility] PRN Reason: Protocol Last Admin: 01/24/17 17:19 Dose: 6 unit Lisinopril (Prinivil Tab*) 29 mg PO QAM [facility] Last Admin: 01/24/17 11:21 Dose: Not Given Morphine Sulfate (Morphine Inj (Syringe)*) 2 mg IV Q2H PRN PRN Reason: PAIN Last Admin: 01/24/17 01:51 Dose: 2 mg Multivitamins (Theragran Tab*) 1 tab PO DAILY [facility] Last Admin: 01/24/17 09:23 Dose: 1 tab Nifedipine (Procardia Xl Tab*) 60 mg PO QAM [facility] Last Admin: 01/24/17 11:21 Dose: Not Given Ondansetron HCl (Zofran Inj*) 4 mg IV Q6H PRN PRN Reason: nausea Last Admin: 01/24/17 09:24 Dose: 4 mg Oxycodone HCl (Roxycodone Tab*) 10 mg PO Q4H PRN PRN Reason: PAIN Last Admin: 01/24/17 21:01 Dose: 10 mg Pharmacy Consult (Vancomycin Per Pharmacy*) 1 note FOLLOW UP . PRN PRN Reason: PER PROTOCOL Pharmacy Profile Note (Vancomycin Trough Check) 1 note FOLLOW UP 1030 ONE Stop: 01/26/17 10:31 Tiotropium [place] (Spiriva Cap.Inh*) 1 cap INH DAILY [facility] Last Admin: 01/24/17 08:16 Dose: 1 cap Trazodone HCl (Desyrel Tab*) 25 mg PO BEDTIME PRN PRN Reason: insomnia Vital Signs 01/23/17 01/24/17 01/24/17 23:33 00:18 01:51 Temperature 99.3 F Pulse Rate 82 Respiratory 16 17 17 Rate Blood Pressure 136/80 (mmHg) O2 Sat by Pulse 97 Oximetry 01/24/17 01/24/17 01/24/17 02:18 02:51 03:45 Temperature 98.8 F Pulse Rate 74 Respiratory 16 16 16 Rate Blood Pressure 108/50 (mmHg) O2 Sat by Pulse 93 Oximetry 01/24/17 01/24/17 01/24/17 07:35 08:00 12:00 Temperature 98.5 F 97.4 F Pulse Rate 73 74 Respiratory 18 18 18 Rate Blood Pressure 100/44 126/69 (mmHg) O2 Sat by Pulse 97 97 100 Oximetry 01/24/17 01/24/17 01/24/17 15:17 16:00 19:23 Temperature 98.6 F 98.5 F Pulse Rate 88 84 Respiratory 16 16 Rate Blood Pressure 114/72 127/61 (mmHg) O2 Sat by Pulse 100 100 96 Oximetry 01/24/17 01/24/17 01/24/17 19:44 19:45 21:01 Temperature Pulse Rate Respiratory 17 17 16 Rate Blood Pressure (mmHg) O2 Sat by Pulse Oximetry Oxygen Devices in Use Now: None Appearance: Overweight gentleman sitting up in bed in NAD Eyes: No Scleral Icterus Ears/Nose/Mouth/Throat: Clear Oropharnyx Neck: No Thyroid Enlargement, Masses Respiratory: Clear to Auscultation Cardiovascular: - - S1S2 jacky Abdominal: No Hepatosplenomegaly Lymphatic: No Cervical Adenopathy Extremities: No Clubbing, Cyanosis Skin: No Rash or Ulcers Neurological: Alert and Oriented x 3 Result Diagrams: 01/24/17 04:51 01/24/17 04:51 Microbiology and Other Data: Microbiology 01/23/17 15:54 Gram Stain - Final Wound - Left Assess/Plan/Problems-Billing 51 yo M with hx of HTN, HLD, IDDM, CKD, peripheral neuropathy s/p L TMA for chronic osteomyelitis - Patient Problems (1) Status post transmetatarsal amputation of left foot Current Visit: Yes Status: Acute Code(s): Z89.432 - ACQUIRED ABSENCE OF LEFT FOOT SNOMED Code(s): 665410098 Comment: - management as per ortho - patient currently on Vanc/Zosyn - appreciate ID's input (2) Diabetes Current Visit: No Status: Chronic Code(s): E11.9 - TYPE 2 DIABETES MELLITUS WITHOUT COMPLICATIONS SNOMED Code(s): 65277668 Comment: IDDM Lantus 70 U q AM and Lispro by SS ordered. (3) Hypertension Current Visit: Yes Status: Acute Code(s): I10 - ESSENTIAL (PRIMARY) HYPERTENSION SNOMED Code(s): 39193534 Comment: Adequate control. Continue current regimen (4) COPD (chronic obstructive pulmonary disease) Current Visit: Yes Status: Acute Code(s): J44.9 - CHRONIC OBSTRUCTIVE PULMONARY DISEASE, UNSPECIFIED SNOMED Code(s): 67718221 Comment: - continue prn albuterol and Spiriva daily (5) CKD (chronic kidney disease) Current Visit: No Status: Acute Code(s): N18.9 - CHRONIC KIDNEY DISEASE, UNSPECIFIED SNOMED Code(s): 244311991 Comment: Stable. Monitor (6) Anemia of chronic disease Current Visit: No Status: Chronic Code(s): D63.8 - ANEMIA IN OTHER CHRONIC DISEASES CLASSIFIED ELSEWHERE SNOMED Code(s): 703520842 Comment: Stable. Monitor. (7) DVT prophylaxis Current Visit: No Status: Acute Code(s): KRR7937 - SNOMED Code(s): 344014001 Comment: ASA as per ortho
[2017-01-25] MEDS: Ondansetron INJ* 2 MG/ML VIAL IV PRN (00:02)
[2017-01-25] MEDS: Morphine INJ* 2 MG/ML 1 ML SYRINGE IV PRN (01:34)
[2017-01-25] MEDS: Piperac/Tazob 3.375 gm in NS* 3.375 GM/100 ML BAG IVPB SCH ×3 (03:32→19:35)
[2017-01-25] MEDS: Insulin GLARGINE(*) 1 UNITS UNIT SUBCUT SCH (08:45)
[2017-01-25] MEDS: Tiotropium CAP.INH* CAP.INH/18 MCG INH SCH (08:48)
[2017-01-25] MEDS: Insulin LISPRO* 1 UNITS UNIT SUBCUT SCH ×3 (09:43→16:41)
[2017-01-25] MEDS: Aspirin TAB* 325 MG PO SCH (09:43)
[2017-01-25] MEDS: Vitamin THERAPEUTIC TAB PO SCH (09:44)
[2017-01-25] MEDS: Hydrochlorothiazide TAB* 25 MG PO SCH ×2 (09:44→10:09)
[2017-01-25] MEDS: NIFEdipine ER TAB* 60 MG PO SCH (09:44)
[2017-01-25] MEDS: Atorvastatin* 10 MG TAB PO SCH (09:44)
[2017-01-25] MEDS: Famotidine TAB* 20 MG PO SCH ×2 (09:44→20:29)
[2017-01-25] MEDS: Docusate CAP* 100 MG PO SCH ×3 (09:44→20:29)
[2017-01-25] MEDS: Lisinopril TAB* 10 MG PO SCH ×2 (09:45→10:09)
--- NOTE | 2017-01-25 10:39 | PN ---
Progress Note - Progress Note SOAP: Subjective: DOS: 01/25/17 CC: osteomyelitis HPI: 51 yo man with longstanding left foot wound, complicated by osteomyelitis and cellulitis, admitted for amputation which he tolerated well. No fever, rash , or diarrhea. Feels tired. Objective: [] Vital Signs Temp 36.6 C 01/25/17 07:24 Pulse 80 01/25/17 09:42 Resp 16 01/25/17 08:48 BP 140/80 01/25/17 09:41 Pulse Ox 997 01/25/17 08:48 Intake & Output 01/24/17 01/25/17 01/25/17 18:59 06:59 18:59 Intake Total 1245 2480 Output Total 1200 1700 0 Balance 45 780 0 Intake: IV Fluids 735 20 NS (0.9%) 735 20 IVPB 110 160 ABX - ZOSYN 110 160 Oral 400 2300 Output: Urine 1200 1700 0 Other: Date of Last Bowel 01/24/17 Movement # Bowel Movements 0 1 Estimated Stool Amount Small Gen:AAOx3 HEENT:PERRL, MMM Neck:Supple Heart:RRR no murmur Lungs:CTA BL Abd:+BS NTND soft Skin: no rash MSK: L foot wrapped Assessment: 1. chronic osteomyelitis, left foot s/p amputation, likely polymicrobial; no MRSA or CoNS isolated, was on keflex as outpatient. 2. IDDM 3. CKD stage 4 4. morbid obesity Plan: 1. continue zosyn at current dose (Decr GFR but obese) while awaiting wound cultures which are negative to date. Will plan on 2 weeks of IV antibiotics, particular abx pending culture results. PICC ordered.
--- NOTE | 2017-01-25 10:59 | PN ---
Progress Note - Progress Note SOAP: Subjective: []Patient seen at bedside. He was seen by Dr. Martinez this am who is recommending a PICC line for 2 weeks of IV abx as on outpatient. Hoping to possibly be discharged tomorrow. Objective: [] Vital Signs Temp 97.9 F 01/25/17 07:24 Pulse 80 01/25/17 09:42 Resp 16 01/25/17 08:48 BP 140/80 01/25/17 09:41 Pulse Ox 997 01/25/17 08:48 Intake & Output 01/24/17 01/25/17 01/25/17 18:59 06:59 18:59 Intake Total 1245 2480 Output Total 1200 1700 0 Balance 45 780 0 Intake: IV Fluids 735 20 NS (0.9%) 735 20 IVPB 110 160 ABX - ZOSYN 110 160 Oral 400 2300 Output: Urine 1200 1700 0 Other: Date of Last Bowel 01/24/17 Movement # Bowel Movements 0 1 Estimated Stool Amount Small Laboratory Results - last 24 hr 01/24/17 01/24/17 01/24/17 11:28 16:24 20:57 POC Glucose (mg/dL) 175 H 222 H Random Vancomycin 10.1 01/24/17 01/25/17 21:06 07:17 POC Glucose (mg/dL) 181 H 191 H Random Vancomycin Left foot dressing is intact and dry Assessment: []s/p left transmetatarsal amputation for cellulitis/osteomyelitis POD #2 Plan: []On IV Zosyn, final cultures pending for definitive outpatient abx for about 2 weeks PICC line ordered by Dr. Martinez Possible discharge home 01/26
[2017-01-25] MEDS: Acetaminophen TAB* 325 MG PO PRN (15:33)
--- NOTE | 2017-01-25 19:25 | PN ---
Subjective Date of Service: 01/25/17 Interval History: Patient feeling well without complaints. Family History: Findings - M - Breast Ca, DM, F - DM, Alzheimer's Social History: Findings - Quit smoking 4 years ago after 40 pack year hx, no ETOH Past Medical History: Findings - IDDM, HTN, HLD, CKD, peripheral neuropathy, depression Objective Active Medications: Acetaminophen (Tylenol Tab*) 650 mg PO Q4H PRN PRN Reason: PAIN Last Admin: 01/25/17 15:33 Dose: 650 mg Albuterol (Ventolin Hfa Inhaler*) 2 puff INH Q4H PRN PRN Reason: SOB/WHEEZING Aspirin (Aspirin Tab*) 325 mg PO DAILY [facility] Last Admin: 01/25/17 09:43 Dose: 325 mg Atorvastatin Calcium (Lipitor*) 10 mg PO QAM [facility] Last Admin: 01/25/17 09:44 Dose: 10 mg Dextrose (D50w Syringe 50 Ml*) 12.5 gm IV PUSH .FOR FS < 60 - SS PRN PRN Reason: FS < 60 Diphenhydramine HCl (Benadryl Iv*) 25 mg IV Q6H PRN PRN Reason: itching Docusate Sodium (Colace Cap*) 100 mg PO BID [facility] Last Admin: 01/25/17 09:47 Dose: Not Given Famotidine (Pepcid Tab*) 20 mg PO BID [facility] PRN Reason: Protocol Last Admin: 01/25/17 09:44 Dose: 20 mg Hydrochlorothiazide (Hydrodiuril Tab*) 25 mg PO DAILY [facility] Last Admin: 01/25/17 09:44 Dose: 25 mg Piperacillin Sod/Tazobactam Sod (Zosyn 3.375 Gm In Ns Premix*) 3.375 gm in 100 mls @ 25 mls/hr IVPB Q8H [facility] Last Admin: 01/25/17 10:46 Dose: 25 mls/hr Sodium Chloride (Ns 0.9% 1000 Ml*) 1,000 mls @ 75 mls/hr IV PER RATE [facility] Last Admin: 01/24/17 09:20 Dose: 75 mls/hr Insulin Glargine (Lantus(*)) 70 units SUBCUT Q24H [facility] Last Admin: 01/25/17 08:45 Dose: 70 unit Insulin Human Lispro (Humalog*) 0 - 15 units SUBCUT [facility] PRN Reason: Protocol Last Admin: 01/25/17 16:41 Dose: 6 unit Lisinopril (Prinivil Tab*) 20 mg PO QAM [facility] Last Admin: 01/25/17 09:45 Dose: 20 mg Morphine Sulfate (Morphine Inj (Syringe)*) 2 mg IV Q2H PRN PRN Reason: PAIN Last Admin: 01/25/17 01:34 Dose: 2 mg Multivitamins (Theragran Tab*) 1 tab PO DAILY [facility] Last Admin: 01/25/17 09:44 Dose: 1 tab Nifedipine (Procardia Xl Tab*) 60 mg PO QAM [facility] Last Admin: 01/25/17 09:44 Dose: 60 mg Ondansetron HCl (Zofran Inj*) 4 mg IV Q6H PRN PRN Reason: nausea Last Admin: 01/25/17 00:02 Dose: 4 mg Oxycodone HCl (Roxycodone Tab*) 10 mg PO Q4H PRN PRN Reason: PAIN Last Admin: 01/24/17 21:01 Dose: 10 mg Tiotropium [place] (Spiriva Cap.Inh*) 1 cap INH DAILY [facility] Last Admin: 01/25/17 08:48 Dose: 1 cap Trazodone HCl (Desyrel Tab*) 25 mg PO BEDTIME PRN PRN Reason: insomnia Vital Signs 01/24/17 01/24/17 01/24/17 19:23 19:44 19:45 Temperature 98.5 F Pulse Rate 84 Respiratory 16 17 17 Rate Blood Pressure 127/61 (mmHg) O2 Sat by Pulse 96 Oximetry 01/24/17 01/24/17 01/25/17 21:01 23:01 00:06 Temperature 97.9 F Pulse Rate 80 Respiratory 16 16 16 Rate Blood Pressure 149/74 (mmHg) O2 Sat by Pulse 96 Oximetry 01/25/17 01/25/17 01/25/17 01:34 02:34 03:45 Temperature 98.2 F Pulse Rate 65 Respiratory 18 16 16 Rate Blood Pressure 112/58 (mmHg) O2 Sat by Pulse 95 Oximetry 01/25/17 01/25/17 01/25/17 07:24 07:59 08:48 Temperature 97.9 F Pulse Rate 86 72 Respiratory 18 18 16 Rate Blood Pressure 105/90 (mmHg) O2 Sat by Pulse 98 98 97 Oximetry 01/25/17 01/25/17 01/25/17 09:41 09:42 12:48 Temperature 98.3 F Pulse Rate 80 75 Respiratory 18 Rate Blood Pressure 140/80 117/66 (mmHg) O2 Sat by Pulse 96 Oximetry 01/25/17 01/25/17 16:00 16:09 Temperature 98.1 F Pulse Rate 80 Respiratory 18 Rate Blood Pressure 92/55 (mmHg) O2 Sat by Pulse 90 90 Oximetry Oxygen Devices in Use Now: None Appearance: WD/WN gentleman lying in bed in NAD Eyes: No Scleral Icterus, PERRLA Ears/Nose/Mouth/Throat: Clear Oropharnyx, Mucous Membranes Moist Neck: No Thyroid Enlargement, Masses Respiratory: Clear to Auscultation Cardiovascular: - - S1S2 jacky Abdominal: NL Sounds; No Tenderness; No Distention, No Hepatosplenomegaly Lymphatic: No Cervical Adenopathy Extremities: No Edema, No Clubbing, Cyanosis Skin: No Rash or Ulcers Neurological: Alert and Oriented x 3 Result Diagrams: 01/24/17 04:51 01/24/17 04:51 Microbiology and Other Data: Microbiology 01/23/17 15:54 Gram Stain - Final Wound - Left Assess/Plan/Problems-Billing 51 yo M with hx of HTN, HLD, IDDM, CKD, peripheral neuropathy s/p L TMA for chronic osteomyelitis - Patient Problems (1) Status post transmetatarsal amputation of left foot Current Visit: Yes Status: Acute Code(s): Z89.432 - ACQUIRED ABSENCE OF LEFT FOOT SNOMED Code(s): 170706519 Comment: - management as per ortho - patient currently on Zosyn - appreciate ID's input - awaiting cultures (2) Diabetes Current Visit: No Status: Chronic Code(s): E11.9 - TYPE 2 DIABETES MELLITUS WITHOUT COMPLICATIONS SNOMED Code(s): 59095447 Comment: IDDM Lantus 70 U q AM and Lispro by SS ordered. (3) Hypertension Current Visit: Yes Status: Acute Code(s): I10 - ESSENTIAL (PRIMARY) HYPERTENSION SNOMED Code(s): 81692496 Comment: Adequate control. Continue current regimen (4) COPD (chronic obstructive pulmonary disease) Current Visit: Yes Status: Acute Code(s): J44.9 - CHRONIC OBSTRUCTIVE PULMONARY DISEASE, UNSPECIFIED SNOMED Code(s): 40327794 Comment: - continue prn albuterol and Spiriva daily (5) CKD (chronic kidney disease) Current Visit: No Status: Acute Code(s): N18.9 - CHRONIC KIDNEY DISEASE, UNSPECIFIED SNOMED Code(s): 327348001 Comment: Stable. Monitor (6) Anemia of chronic disease Current Visit: No Status: Chronic Code(s): D63.8 - ANEMIA IN OTHER CHRONIC DISEASES CLASSIFIED ELSEWHERE SNOMED Code(s): 316762241 Comment: Stable. Monitor. (7) DVT prophylaxis Current Visit: No Status: Acute Code(s): ONX4224 - SNOMED Code(s): 542543195 Comment: ASA as per ortho
[2017-01-25] MEDS: oxyCODONE TAB* 5 MG TAB PO PRN (22:36)
[2017-01-26] MEDS: Morphine INJ* 2 MG/ML 1 ML SYRINGE IV PRN ×2 (00:44→19:48)
[2017-01-26] MEDS: Acetaminophen TAB* 325 MG PO PRN ×3 (00:44→16:15)
[2017-01-26] MEDS: Piperac/Tazob 3.375 gm in NS* 3.375 GM/100 ML BAG IVPB SCH ×3 (04:07→19:54)
[2017-01-26] MEDS: Insulin LISPRO* 1 UNITS UNIT SUBCUT SCH ×3 (09:42→17:50)
[2017-01-26] MEDS: Insulin GLARGINE(*) 1 UNITS UNIT SUBCUT SCH (09:43)
[2017-01-26] MEDS: NIFEdipine ER TAB* 60 MG PO SCH (09:44)
[2017-01-26] MEDS: Aspirin TAB* 325 MG PO SCH (09:44)
[2017-01-26] MEDS: Vitamin THERAPEUTIC TAB PO SCH (09:45)
[2017-01-26] MEDS: Lisinopril TAB* 10 MG PO SCH (09:45)
[2017-01-26] MEDS: Hydrochlorothiazide TAB* 25 MG PO SCH (09:45)
[2017-01-26] MEDS: Atorvastatin* 10 MG TAB PO SCH (09:46)
[2017-01-26] MEDS: Famotidine TAB* 20 MG PO SCH ×2 (09:46→19:53)
[2017-01-26] MEDS ORDERED: Vancomycin Trough Check NOTE FOLLOW UP ONE (10:30)
[2017-01-26] MEDS: Docusate CAP* 100 MG PO SCH ×2 (10:35→19:53)
[2017-01-26] MEDS: Tiotropium CAP.INH* CAP.INH/18 MCG INH SCH (10:38)
[2017-01-26] MEDS ORDERED: Ondansetron ODT TAB* 4 MG PO PRN (11:06)
--- NOTE | 2017-01-26 13:00 | PN ---
Progress Note - Progress Note SOAP: Subjective: []Patient seen at bedside. Looking forward to getting home. Arrangements are being made for VNS for continuous Zosyn infusion at home starting tomorrow. Objective: [] Vital Signs Temp 98.0 F 01/26/17 11:09 Pulse 81 01/26/17 11:09 Resp 17 01/26/17 11:09 BP 93/73 01/26/17 11:09 Pulse Ox 100 01/26/17 11:09 Intake & Output 01/25/17 01/26/17 01/26/17 18:59 06:59 18:59 Intake Total 887 840 9254 Output Total 1350 1250 700 Balance -360 -601 478 Intake: IV Fluids 20 139 20 ABX - ZOSYN 110 NS (0.9%) 20 29 20 IVPB 110 958 ABX - ZOSYN 110 110 NS (0.9%) 848 Oral 860 510 200 Output: Urine 1350 1250 700 Other: Estimated Void Large Medium Date of Last Bowel 01/24/17 Movement # Bowel Movements 1 Estimated Stool Amount Small Laboratory Results - last 24 hr 01/26/17 01/26/17 07:36 11:51 POC Glucose (mg/dL) 224 H 191 H Left foot dressing remains dry and intact PICC line placed LUE Assessment: []s/p transmetatarsal amputation left foot for Osteo/ cellulitis POD #3 Plan: []Services being arranged for continuous IV Zosyn infusion at home Discharge home 01/27 RX for Oxycodone 10mg sent to his pharmacy today Follow up with Dr. Galarza 10- 14days
[2017-01-26] MEDS: oxyCODONE TAB* 5 MG TAB PO PRN ×2 (16:15→21:47)
--- NOTE | 2017-01-26 18:07 | PN ---
Subjective Date of Service: 01/26/17 Interval History: Patient said he had difficulty ambulating . PT was in the room and thought he would benefit from STR. Family History: Findings - M - Breast Ca, DM, F - DM, Alzheimer's Social History: Findings - Quit smoking 4 years ago after 40 pack year hx, no ETOH Past Medical History: Findings - IDDM, HTN, HLD, CKD, peripheral neuropathy, depression Objective Active Medications: Acetaminophen (Tylenol Tab*) 650 mg PO Q4H PRN PRN Reason: PAIN Last Admin: 01/26/17 16:15 Dose: 650 mg Albuterol (Ventolin Hfa Inhaler*) 2 puff INH Q4H PRN PRN Reason: SOB/WHEEZING Last Admin: 01/26/17 17:18 Dose: 2 puff Aspirin (Aspirin Tab*) 325 mg PO DAILY [facility] Last Admin: 01/26/17 09:44 Dose: 325 mg Atorvastatin Calcium (Lipitor*) 10 mg PO QAM [facility] Last Admin: 01/26/17 09:46 Dose: 10 mg Dextrose (D50w Syringe 50 Ml*) 12.5 gm IV PUSH .FOR FS < 60 - SS PRN PRN Reason: FS < 60 Diphenhydramine HCl (Benadryl Iv*) 25 mg IV Q6H PRN PRN Reason: itching Docusate Sodium (Colace Cap*) 100 mg PO BID [facility] Last Admin: 01/26/17 10:35 Dose: Not Given Famotidine (Pepcid Tab*) 20 mg PO BID [facility] PRN Reason: Protocol Last Admin: 01/26/17 09:46 Dose: 20 mg Hydrochlorothiazide (Hydrodiuril Tab*) 25 mg PO DAILY [facility] Last Admin: 01/26/17 09:45 Dose: 25 mg Piperacillin Sod/Tazobactam Sod (Zosyn 3.375 Gm In Ns Premix*) 3.375 gm in 100 mls @ 25 mls/hr IVPB Q8H [facility] Last Admin: 01/26/17 11:44 Dose: 25 mls/hr Sodium Chloride (Ns 0.9% 1000 Ml*) 1,000 mls @ 75 mls/hr IV PER RATE [facility] Last Admin: 01/24/17 09:20 Dose: 75 mls/hr Insulin Glargine (Lantus(*)) 70 units SUBCUT Q24H [facility] Last Admin: 01/26/17 09:43 Dose: 70 unit Insulin Human Lispro (Humalog*) 0 - 15 units SUBCUT AC [facility] PRN Reason: Protocol Last Admin: 01/26/17 17:50 Dose: 3 unit Lisinopril (Prinivil Tab*) 20 mg PO QAM [facility] Last Admin: 01/26/17 09:45 Dose: 20 mg Morphine Sulfate (Morphine Inj (Syringe)*) 2 mg IV Q2H PRN PRN Reason: PAIN Last Admin: 01/26/17 00:44 Dose: 2 mg Multivitamins (Theragran Tab*) 1 tab PO DAILY [facility] Last Admin: 01/26/17 09:45 Dose: 1 tab Nifedipine (Procardia Xl Tab*) 60 mg PO QAM [facility] Last Admin: 01/26/17 09:44 Dose: 60 mg Ondansetron HCl (Zofran Inj*) 4 mg IV Q6H PRN PRN Reason: nausea Last Admin: 01/25/17 00:02 Dose: 4 mg Ondansetron HCl (Zofran Odt Tab*) 4 mg PO Q6H PRN PRN Reason: NAUSEA Last Admin: 01/26/17 11:32 Dose: 4 mg Oxycodone HCl (Roxycodone Tab*) 10 mg PO Q4H PRN PRN Reason: PAIN Last Admin: 01/26/17 16:15 Dose: 10 mg Tiotropium [place] (Spiriva Cap.Inh*) 1 cap INH DAILY [facility] Last Admin: 01/26/17 10:38 Dose: 1 cap Trazodone HCl (Desyrel Tab*) 25 mg PO BEDTIME PRN PRN Reason: insomnia Vital Signs 01/25/17 01/25/17 01/25/17 19:20 19:24 22:36 Temperature 98.0 F Pulse Rate 77 Respiratory 18 20 18 Rate Blood Pressure 121/56 (mmHg) O2 Sat by Pulse 97 Oximetry 01/25/17 01/25/17 01/26/17 22:37 23:42 00:36 Temperature 98.1 F Pulse Rate 72 Respiratory 18 16 20 Rate Blood Pressure 111/57 (mmHg) O2 Sat by Pulse 95 Oximetry 01/26/17 01/26/17 01/26/17 00:44 01:44 03:37 Temperature 97.6 F Pulse Rate 72 Respiratory 20 18 16 Rate Blood Pressure 128/61 (mmHg) O2 Sat by Pulse 98 Oximetry 01/26/17 01/26/17 01/26/17 07:26 08:00 08:04 Temperature 97.7 F Pulse Rate 71 74 Respiratory 15 15 Rate Blood Pressure 124/66 130/64 (mmHg) O2 Sat by Pulse 95 Oximetry 01/26/17 01/26/17 01/26/17 10:37 10:48 11:09 Temperature 98.0 F Pulse Rate 96 81 Respiratory 20 17 Rate Blood Pressure 93/73 (mmHg) O2 Sat by Pulse 100 Oximetry 01/26/17 01/26/17 01/26/17 15:43 15:52 16:00 Temperature 97.4 F Pulse Rate 70 74 Respiratory 20 Rate Blood Pressure 83/48 90/48 (mmHg) O2 Sat by Pulse 86 97 97 Oximetry 01/26/17 01/26/17 01/26/17 16:04 16:05 16:15 Temperature Pulse Rate 76 Respiratory 18 Rate Blood Pressure 91/47 (mmHg) O2 Sat by Pulse 90 97 Oximetry 01/26/17 17:21 Temperature Pulse Rate 75 Respiratory Rate Blood Pressure 100/57 (mmHg) O2 Sat by Pulse 98 Oximetry Oxygen Devices in Use Now: None Appearance: WD/WN gentleman lying in bed in NAD Eyes: No Scleral Icterus Ears/Nose/Mouth/Throat: Mucous Membranes Moist Neck: No Thyroid Enlargement, Masses Respiratory: Clear to Auscultation Cardiovascular: - - S1S2 jacky Abdominal: NL Sounds; No Tenderness; No Distention, No Hepatosplenomegaly Lymphatic: No Cervical Adenopathy Extremities: No Clubbing, Cyanosis, - - Dressnig over Left TMA Skin: No Rash or Ulcers Neurological: Alert and Oriented x 3 Result Diagrams: 01/24/17 04:51 01/24/17 04:51 Microbiology and Other Data: Microbiology 01/23/17 15:54 Gram Stain - Final Wound - Left Assess/Plan/Problems-Billing 51 yo M with hx of HTN, HLD, IDDM, CKD, peripheral neuropathy s/p L TMA for chronic osteomyelitis - Patient Problems (1) Status post transmetatarsal amputation of left foot Current Visit: Yes Status: Acute Code(s): Z89.432 - ACQUIRED ABSENCE OF LEFT FOOT SNOMED Code(s): 546836300 Comment: - management as per ortho - patient currently on Zosyn - appreciate ID's input - cultures neg - ID says to continue Zosyn - Ortho OK dc to home. No STR (2) Diabetes Current Visit: No Status: Chronic Code(s): E11.9 - TYPE 2 DIABETES MELLITUS WITHOUT COMPLICATIONS SNOMED Code(s): 59989170 Comment: IDDM Lantus 70 U q AM and Lispro by SS ordered. (3) Hypertension Current Visit: Yes Status: Acute Code(s): I10 - ESSENTIAL (PRIMARY) HYPERTENSION SNOMED Code(s): 08388920 Comment: Adequate control. Continue current regimen (4) COPD (chronic obstructive pulmonary disease) Current Visit: Yes Status: Acute Code(s): J44.9 - CHRONIC OBSTRUCTIVE PULMONARY DISEASE, UNSPECIFIED SNOMED Code(s): 67853212 Comment: - continue prn albuterol and Spiriva daily (5) CKD (chronic kidney disease) Current Visit: No Status: Acute Code(s): N18.9 - CHRONIC KIDNEY DISEASE, UNSPECIFIED SNOMED Code(s): 916477813 Comment: Stable. Monitor (6) Anemia of chronic disease Current Visit: No Status: Chronic Code(s): D63.8 - ANEMIA IN OTHER CHRONIC DISEASES CLASSIFIED ELSEWHERE SNOMED Code(s): 132496355 Comment: Stable. Monitor. (7) DVT prophylaxis Current Visit: No Status: Acute Code(s): LXH3007 - SNOMED Code(s): 541362132 Comment: ASA as per ortho
[2017-01-27] MEDS: Piperac/Tazob 3.375 gm in NS* 3.375 GM/100 ML BAG IVPB SCH ×2 (03:46→11:10)
[2017-01-27] MEDS: Atorvastatin* 10 MG TAB PO SCH (08:58)
[2017-01-27] MEDS: Aspirin TAB* 325 MG PO SCH (08:58)
[2017-01-27] MEDS: Lisinopril TAB* 10 MG PO SCH (08:59)
[2017-01-27] MEDS: Docusate CAP* 100 MG PO SCH (08:59)
[2017-01-27] MEDS: Famotidine TAB* 20 MG PO SCH (08:59)
[2017-01-27] MEDS: NIFEdipine ER TAB* 60 MG PO SCH (08:59)
[2017-01-27] MEDS: Vitamin THERAPEUTIC TAB PO SCH (08:59)
[2017-01-27] MEDS: Tiotropium CAP.INH* CAP.INH/18 MCG INH SCH (09:00)
[2017-01-27] MEDS: Hydrochlorothiazide TAB* 25 MG PO SCH (09:00)
[2017-01-27] MEDS: Insulin LISPRO* 1 UNITS UNIT SUBCUT SCH ×2 (09:02→12:53)
[2017-01-27] MEDS: Insulin GLARGINE(*) 1 UNITS UNIT SUBCUT SCH (09:02)
--- NOTE | 2017-01-27 11:34 | PN ---
Subjective Date of Service: 01/27/17 Interval History: Patient seen this morning. Says he feels a little light-headed at times in the morning, says he thinks its because he's in bed so much. No pain. Good PO intake. Moving bowels and having good UOP. Family History: Unchanged from Admission - M - Breast Ca, DM, F - DM, Alzheimer' s Social History: Unchanged from Admission - Quit smoking 4 years ago after 40 pack year hx, no ETOH Past Medical History: Unchanged from Admission - IDDM, HTN, HLD, CKD, peripheral neuropathy, depression Objective Active Medications: Acetaminophen (Tylenol Tab*) 650 mg PO Q4H PRN PRN Reason: PAIN Last Admin: 01/26/17 16:15 Dose: 650 mg Albuterol (Ventolin Hfa Inhaler*) 2 puff INH Q4H PRN PRN Reason: SOB/WHEEZING Last Admin: 01/26/17 17:18 Dose: 2 puff Aspirin (Aspirin Tab*) 325 mg PO DAILY [facility] Last Admin: 01/27/17 08:58 Dose: 325 mg Atorvastatin Calcium (Lipitor*) 10 mg PO QAM [facility] Last Admin: 01/27/17 08:58 Dose: 10 mg Dextrose (D50w Syringe 50 Ml*) 12.5 gm IV PUSH .FOR FS < 60 - SS PRN PRN Reason: FS < 60 Diphenhydramine HCl (Benadryl Iv*) 25 mg IV Q6H PRN PRN Reason: itching Docusate Sodium (Colace Cap*) 100 mg PO BID [facility] Last Admin: 01/27/17 08:59 Dose: 100 mg Famotidine (Pepcid Tab*) 20 mg PO BID [facility] PRN Reason: Protocol Last Admin: 01/27/17 08:59 Dose: 20 mg Heparin Sodium (Porcine) (Heparin Flush Picc/Ml/Cvc(*)) 1 ml FLUSH 0600,1800 [facility] PRN Reason: Protocol Last Admin: 01/27/17 09:04 Dose: 1 ml Hydrochlorothiazide (Hydrodiuril Tab*) 25 mg PO DAILY [facility] Last Admin: 01/27/17 09:00 Dose: 25 mg Piperacillin Sod/Tazobactam Sod (Zosyn 3.375 Gm In Ns Premix*) 3.375 gm in 100 mls @ 25 mls/hr IVPB Q8H [facility] Last Admin: 01/27/17 11:10 Dose: 25 mls/hr Sodium Chloride (Ns 0.9% 1000 Ml*) 1,000 mls @ 75 mls/hr IV PER RATE [facility] Last Admin: 01/24/17 09:20 Dose: 75 mls/hr Insulin Glargine (Lantus(*)) 70 units SUBCUT Q24H [facility] Last Admin: 01/27/17 09:02 Dose: 70 unit Insulin Human Lispro (Humalog*) 0 - 15 units SUBCUT AC [facility] PRN Reason: Protocol Last Admin: 01/27/17 09:02 Dose: 9 unit Lisinopril (Prinivil Tab*) 20 mg PO QAM [facility] Last Admin: 01/27/17 08:59 Dose: 20 mg Morphine Sulfate (Morphine Inj (Syringe)*) 2 mg IV Q2H PRN PRN Reason: PAIN Last Admin: 01/26/17 19:48 Dose: 2 mg Multivitamins (Theragran Tab*) 1 tab PO DAILY [facility] Last Admin: 01/27/17 08:59 Dose: 1 tab Nifedipine (Procardia Xl Tab*) 60 mg PO QAM [facility] Last Admin: 01/27/17 08:59 Dose: 60 mg Ondansetron HCl (Zofran Inj*) 4 mg IV Q6H PRN PRN Reason: nausea Last Admin: 01/25/17 00:02 Dose: 4 mg Ondansetron HCl (Zofran Odt Tab*) 4 mg PO Q6H PRN PRN Reason: NAUSEA Last Admin: 01/26/17 11:32 Dose: 4 mg Oxycodone HCl (Roxycodone Tab*) 10 mg PO Q4H PRN PRN Reason: PAIN Last Admin: 01/26/17 21:47 Dose: 10 mg Tiotropium [place] (Spiriva Cap.Inh*) 1 cap INH DAILY [facility] Last Admin: 01/27/17 09:00 Dose: 1 cap Trazodone HCl (Desyrel Tab*) 25 mg PO BEDTIME PRN PRN Reason: insomnia Vital Signs 01/26/17 01/26/17 01/26/17 15:43 15:52 16:00 Temperature 97.4 F Pulse Rate 70 74 Respiratory 20 Rate Blood Pressure 83/48 90/48 (mmHg) O2 Sat by Pulse 86 97 97 Oximetry 01/27/17 01/27/17 01/27/17 03:41 07:28 07:29 Temperature 97.6 F Pulse Rate 78 71 Respiratory 16 16 16 Rate Blood Pressure 124/62 135/72 (mmHg) O2 Sat by Pulse 98 97 98 Oximetry Oxygen Devices in Use Now: None Appearance: Middle-aged, M, laying in bed in NAD Eyes: No Scleral Icterus Ears/Nose/Mouth/Throat: Mucous Membranes Moist Neck: NL Appearance and Movements; NL JVP Respiratory: Symmetrical Chest Expansion and Respiratory Effort, Clear to Auscultation Cardiovascular: NL Sounds; No Murmurs; No JVD, RRR Abdominal: NL Sounds; No Tenderness; No Distention Lymphatic: No Cervical Adenopathy Extremities: No Edema, - - R great toe amputation, L TMA, dressing in place Skin: No Rash or Ulcers Neurological: Alert and Oriented x 3 Result Diagrams: 01/24/17 04:51 01/24/17 04:51 Microbiology and Other Data: Microbiology 01/23/17 15:54 Gram Stain - Final Wound - Left Assess/Plan/Problems-Billing 51 yo M with hx of HTN, HLD, IDDM, CKD, peripheral neuropathy s/p L TMA for chronic osteomyelitis - Patient Problems (1) Status post transmetatarsal amputation of left foot Current Visit: Yes Comment: - management as per ortho - appreciate ID's input - cultures neg - ID says to continue Zosyn (2) Diabetes Current Visit: No Comment: IDDM Increase Lantus to 80 U q AM and Lispro by SS ordered. Spoke with Ortho PA for new d/c dose. (3) COPD (chronic obstructive pulmonary disease) Current Visit: Yes Comment: - continue prn albuterol and Spiriva daily (4) Hypertension Current Visit: Yes Comment: Adequate control. Continue current regimen (5) CKD (chronic kidney disease) Current Visit: No Comment: Stable. (6) Anemia of chronic disease Current Visit: No Comment: Stable. (7) DVT prophylaxis Current Visit: No Comment: ASA as per ortho Status and Disposition: Discharge to [place] [facility] for rehab today
[2017-01-27 11:40] VITALS: BP 134/78
--- NOTE | 2017-01-27 11:44 | PN ---
Progress Note - Progress Note SOAP: Subjective: Pt is feeling well. He is anxious to be discharged. He is having minimal pain that is well controlled. He denies F/C, CP, SOB or calf pain. VSS overnight Objective: PE: 51 y/o M NAD, lying in bed comfortably LLE: splint c/d/i, able to flex and extend knee Vital Signs Temp Pulse Resp BP Pulse Ox 97.3 F 70 16 134/78 98 01/27/17 11:10 01/27/17 11:10 01/27/17 11:10 01/27/17 11:10 01/27/17 11:10 Laboratory Results - last 24 hr 01/25/17 01/25/17 01/26/17 16:09 20:32 16:20 POC Glucose (mg/dL) 212 H 216 H 188 H 01/26/17 01/27/17 01/27/17 21:41 07:29 11:38 POC Glucose (mg/dL) 254 H 253 H 180 H Assessment: s/p transmetatarsal amputation left foot for Osteo/ cellulitis POD #4 Plan: NWB LLE Continue IV Zosyn infusion at home as directed by Dr. Martinez Discharge to SNF today RX for Oxycodone 10mg sent to his pharmacy yesterday for when he goes home Follow up with Dr. Galarza 10- 14 days
--- NOTE | 2017-01-27 13:52 | DS ---
DISCHARGE SUMMARY: DATE OF ADMISSION: 01/23/17 DATE OF DISCHARGE: 01/27/17 PROVIDER: Dr. Robert Galarza. (DICTATED BY DORIS PALACIOS) ADMITTING DIAGNOSES: Status post left Lisfranc disarticulation and tendo- Achilles release for the treatment of chronic osteomyelitis of the left forefoot. SECONDARY DIAGNOSES: 1. Insulin-dependent diabetes mellitus. 2. Hypertension. 3. Hyperlipidemia. 4. Chronic kidney disease. 5. Peripheral neuropathy. 6. Depression. CONSULTATIONS: 1. Infectious Disease. 2. Medicine. 3. PT. HISTORY OF PRESENT ILLNESS: Mr. Galo is a 51-year-old male who presents to the clinic for ongoing left foot pain due to chronic ulcers and osteomyelitis of the left forefoot. He failed conservative measures and therefore agreed to undergo the left Lisfranc disarticulation and tendo-Achilles release with Dr. Galarza on 01/23/17. HOSPITAL COURSE: The patient was admitted to [facility] on 01/23/17 and underwent a left Lisfranc disarticulation and tendo-Achilles release with Dr. Galarza with no complications. The patient recovered briefly in the post- anesthesia care unit and was then transferred to the short stay surgical unit in stable condition. He was advanced to a regular diet without difficulty and his pain was controlled with oral oxycodone. He was restarted on his home medications. His labs and vitals remained stable. He was nonweightbearing on the left lower extremity. Aspirin was used for DVT prophylaxis. He was started on IV Zosyn for the treatment of osteomyelitis. By postop day 4, he was medically stable for discharge to [facility]. PHYSICAL EXAMINATION: General: A 51-year-old male in no acute distress. Alert and oriented x3. Vital Signs: Stable. Left lower extremity: The dressing is clean, dry, and intact. The calf is nontender. He is neurovascularly intact. DISCHARGE CONDITION: Stable. DISCHARGE MEDICATIONS: Home medications continued on discharge will include: 1. Atenolol 25 mg p.o. q.a.m. 2. Furosemide 40 mg p.o. q.a.m. 3. Procardia 60 mg p.o. q.a.m. 4. Lisinopril/hydrochlorothiazide 20/25 one by mouth every morning. 5. Insulin regular 20 units subcu in the a.m. and at bedtime. 6. Insulin glargine 80 mg subcutaneous every morning. 7. Zantac 150 mg by mouth twice a day. 8. Ativan 0.5 mg by mouth once as needed. 9. Albuterol 2 puffs inhalation every 4 hours as needed. 10. Simvastatin 20 mg p.o. every morning. 11. Hydrochlorothiazide 25 mg by mouth every morning. 12. Regular insulin 10 units subcutaneous, see instructions . New medications at discharge: 1. Aspirin 325 mg daily. 2. 1 mL heparin flush for 10 units at 0600 and 1800 for the PICC line. 3. Oxycodone 10 mg every 4 hours as needed for pain. 4. Zosyn 3.375 g IV piggyback q.8 hours administered over 30 minutes. 5. Spiriva inhaler 1 cap inhalation daily. DISCHARGE INSTRUCTIONS: The patient is to eat a carb consistent diet, drink lots of fluids, and then high fiber to prevent constipation. He is nonweightbearing on his left lower extremity. He should keep this clean, dry, and intact until his postop visit. He will continue IV Zosyn through his PICC line as outlined by Dr. Martinez for 2 weeks, care per protocol. To use oxycodone for pain and aspirin for DVT prophylaxis. He will follow up with Dr. Galarza in 10 to 14 days. He was instructed to return to the ER if he develops chest pain, shortness of breath, calf pain, or swelling, or fever over 101.5. DORIS PALACIOS [id number]/[facility] #: [id number] [facility]
== END 2017-01-27 14:05 | DRG 475 ==
LOC: OR 12:04 → SSU 16:34
PROVIDERS: ADMIT Orthopaedic Surgery; ATTEND Orthopaedic Surgery
PROC: 0Y6N0Z0 Detachment at Left Foot, Complete, Open Approach (ICD-10-PCS; principal; 2017-01-26)
PROC: 0LN Tendons, Release (ICD-10-PCS; 2017-01-26)
DX: M86.672 Other chronic osteomyelitis, left ankle and foot (principal); N18.4 Chronic kidney disease, stage 4 (severe); E11.22 Type 2 diabetes mellitus with diabetic chronic kidney disease; I12.9 Hypertensive chronic kidney disease with stage 1 through stage 4 chronic kidney disease, or unspecified chronic kidney disease; E11.40 Type 2 diabetes mellitus with diabetic neuropathy, unspecified; E78.5 Hyperlipidemia, unspecified; F32.9 Major depressive disorder, single episode, unspecified; E11.621 Type 2 diabetes mellitus with foot ulcer; L97.529 Non-pressure chronic ulcer of other part of left foot with unspecified severity; J44.9 Chronic obstructive pulmonary disease, unspecified; D63.1 Anemia in chronic kidney disease; Z80.3 Family history of malignant neoplasm of breast; Z79.4 Long term (current) use of insulin; Z83.3 Family history of diabetes mellitus; Z87.891 Personal history of nicotine dependence; E66.01 Morbid (severe) obesity due to excess calories; Z68.39 Body mass index [BMI] 39.0-39.9, adult
CPT/HCPCS: 36415; 80048; 80051; 80202; 82565; 84520; 85014; 85018; 85610; 87070; 87073; 87205; 87641; 88307; 88311; 94640; 94760; A9270-GY; J0690; J2250; J2270; J2400; J2405; J2543; J3010; J3370

== ENCOUNTER 2017-02-03 09:07 | Observation (INO) | payer MEDICARE, MEDICAID ==
[2017-02-03] MEDS ORDERED: NS 0.9% 1000 ML* 2,000 ML IV ONE (10:10)
--- NOTE | 2017-02-03 10:33 | RAD ---
INDICATION: Shortness of breath. COMPARISON: Appear seated is made with a prior study from January 16, 2017. TECHNIQUE: A portable view of the chest was obtained. FINDINGS: Cardiac and mediastinal contours appear to be within normal limits. There is a PICC present on the right side which demonstrate normal course. The catheter tip projects over the region of the superior vena cava. The lungs are underinflated and clear. No pleural effusion is seen. IMPRESSION: NO EVIDENCE FOR ACUTE DISEASE.
[2017-02-03 11:26] LABS: Hematocrit 30 % (42-52); Hemoglobin 9.6 g/dl (14.0-18.0); Mean Corpuscular HGB Conc 32 g/dl (31-36); Mean Corpuscular Hemoglobin 27 pg (27-31); Mean Corpuscular Volume 85 fL (80-94); Mean Platelet Volume 8 um3 (7.4-10.4); Red Blood Count 3.57 10^6/ul (4.0-5.4); Red Cell Distribution Width 16 % (10.5-15); White Blood Count 8.8 10^3/ul (3.5-10.8)
[2017-02-03 11:45] LABS: Albumin 3.3 g/dL (3.2-5.2); BUN/Creatinine Ratio 13.5 (8-20); Calcium 9.4 mg/dL (8.6-10.3); EGFR African American 25.5 (>60); EGFR Non-African American 19.8 (>60); Globulin 3.9 g/dL (2-4); Potassium 5.9 mmol/L (3.5-5.0); Total Bilirubin 0.3 mg/dL (0.2-1.0); Total Protein 7.2 g/dL (6.4-8.9)
[2017-02-03 11:47] LABS: Troponin I 0.01 ng/mL (<0.04)
[2017-02-03] MEDS ORDERED: Sodium Polystyrene ORAL.SOL* 15 GM/60 ML BTL PO ONE (15:29)
[2017-02-03] MEDS ORDERED: Ondansetron INJ* 2 MG/ML VIAL IV PRN (15:29)
[2017-02-03] MEDS ORDERED: Acetaminophen TAB* 325 MG PO PRN (15:29)
[2017-02-03] MEDS ORDERED: Dextrose 50% Syringe 50 ML* 25 GM/50 ML SYRINGE IV PUSH PRN (15:29)
[2017-02-03] MEDS ORDERED: NS 0.9% 1000 ML* 1,000 ML IV ONE (15:30)
--- NOTE | 2017-02-03 15:30 | RAD ---
INDICATION: Shortness of breath, elevated d-dimer, recent surgery, renal failure. Comparison: Correlation is made with a prior chest x-ray study from February 03, 2017. Technique: The patient was given an intravenous injection of 15.8 mCi of xenon-133 via a rebreathing mask. The lungs were imaged in both the anterior and posterior projections. Subsequently, the patient received 6.6 mCi of technetium 99 MAA intravenously and the lungs were imaged in 8 projections. FINDINGS: There appears to be a matched subsegmental defect in the right right lower lobe. There is a tiny unmatched subsegmental perfusion defect in the anterior right lung in the right middle lobe. There is otherwise normal distribution of radiopharmaceutical. The prior chest x-ray study demonstrates underinflated and clear lungs. No pleural effusion is seen. IMPRESSION: LOW PROBABILITY FOR PULMONARY EMBOLISM.
[2017-02-03] MEDS ORDERED: oxyCODONE TAB* 5 MG TAB PO PRN (15:36)
[2017-02-03] MEDS ORDERED: Albuterol HFA INHALER* 8 gm MDI INH PRN (15:36)
--- NOTE | 2017-02-03 16:00 | ED ---
Pascual Cabral Auryana, scribed for Bo Walker MD on 02/03/17 at 1203 . Respiratory - HPI Summary HPI Summary: 51 year old male present with SOB starting this morning lasting 2-3 hours. He reports that he was attempting to get up this morning when he becomes SOB and had cold sweats. He reports that he improved en route to ER and on physician visit in ED. He denies chest pain, abdominal pain, fever, chills, and any other pain. He denies any use of blood thinners. He is scheduled for a blood transfusion today at 10 am- and states that he may be anemic. PMHx is significant of partial left foot amputation- Dr Galarza- 01/30/17 - oxycodone for pain -and DM (reports sugar today is 167). - History of Current Complaint Chief Complaint: EDShortnessOfBreath Stated Complaint: DIFF BREATHING Time Seen by Provider: 02/03/17 09:30 Hx Obtained From: Patient Onset/Duration: Gradual Onset Timing: Constant Initial Severity: Mild Current Severity: Mild Pain Intensity: 1 Character: Dyspnea at Rest, Orthopnea Sputum Amount: None Associated Signs and Symptoms: Dyspnea - with cold sweats - Allergy/Home Medications Allergies/Adverse Reactions: Allergies Allergy/AdvReac Type Severity Reaction Status Date / Time Spinach Allergy Swelling Verified 01/23/17 12:54 Sulfamethoxazole Allergy KIDNEY Verified 01/23/17 12:54 w/Trimethoprim PROBLEMS [From Bactrim] Codeine AdvReac Intermediate Dizziness Verified 01/23/17 12:54 Peanutbutter Allergy Intermediate Vomiting Uncoded 01/23/17 12:54 Strawberries Allergy Intermediate Swelling Uncoded 01/23/17 12:54 Home Medications: Home Medications NIFEdipine ER TAB* [Procardia Xl TAB*] 30 mg PO DAILY 02/03/17 [History Confirmed 02/03/17] PMH/Surg Hx/FS Hx/Imm Hx Endocrine/Hematology History: Reports: Hx Diabetes - IDDM, Hx Anemia Denies: Hx Blood Transfusions, Hx Systemic Lupus Erythematosus, Hx Thyroid Disease, Other Endocrine/Hematological Disorders Cardiovascular History: Reports: Hx Hypercholesterolemia, Hx Hypertension Denies: Hx Angina, Hx Congestive Heart Failure, Hx Coronary Artery Disease, Hx Myocardial Infarction, Hx Pacemaker/ICD Respiratory History: Reports: Hx Chronic Obstructive Pulmonary Disease (COPD) - home O2, Hx Sleep Apnea - UNSURE- SCHEDULED FOR A SLEEP STUDY Denies: Hx Asthma, Hx Pulmonary Embolism GI History: Denies: Hx Ulcer History: Reports: Other Problems/Disorders - CKD Denies: Hx Dialysis, Hx Renal Disease Musculoskeletal History: Reports: Other Musculoskeletal History - Osteomyelitis L foot Denies: Hx Rheumatoid Arthritis Sensory History: Reports: Hx Cataracts Denies: Hx Contacts or Glasses, Hx Hearing Aid Opthamlomology History: Reports: Hx Cataracts Denies: Hx Contacts or Glasses Neurological History: Reports: Other Neuro Impairments/Disorders - Hx Pre syncope Psychiatric History: Reports: Hx Anxiety - PRN LORAZEPAM Denies: Hx Panic Disorder - Cancer History Hx Chemotherapy: No - Surgical History Surgery Procedure, Year, and Place: right big toe amputation dt diab, pin in big toe of left foot. CATARACT WITH LENS IMPLANTS - BY DR DENNEY. Pt had an ulcer on the bottom of his left foot that turned gangreen 07/2016. Hx Anesthesia Reactions: No Infectious Disease History: Reports: Hx of Known/Suspected MRSA Denies: Hx Hepatitis, Hx Human Immunodeficiency Virus (HIV), History Other Infectious Disease, Traveled Outside the [place] in Last 30 Days - Family History Known Family History: Positive: None, Diabetes Negative: Cardiac Disease - Social History Occupation: Unemployed Lives: Alone Alcohol Use: None Substance Use Type: Reports: None Substance Use Comment - Amount & Last Used: CHEWING TOBACCO Smoking Status (MU): Light Every Day Tobacco Smoker Type: Cigarettes, Smokeless Tobacco Amount Used/How Often: daily Length of Time of Smoking/Using Tobacco: 20 YEARS Have You Smoked in the Last Year: No Review of Systems Positive: Other - cold sweats. Negative: Fever, Chills Eyes: Negative ENT: Negative Cardiovascular: Negative Negative: Chest Pain Positive: Shortness Of Breath Gastrointestinal: Negative Negative: Abdominal Pain Genitourinary: Negative Musculoskeletal: Negative Skin: Negative Neurological: Negative Psychological: Normal All Other Systems Reviewed And Are Negative: Yes Physical Exam - Summary Physical Exam Summary: The patient is obese in no acute distress and in no acute pain. The skin is warm and dry and skin color reflects adequate perfusion. HEENT: The head is normocephalic and atraumatic. The pupils are equal and reactive. The conjunctivae are clear and without drainage. Nares are patent and without drainage. Mouth reveals moist mucous membranes and the throat is without erythema and exudate. The external ears are intact. The ear canals are patent and without drainage. The tympanic membranes are intact. Neck is supple with full range of motion and non-tender. There are no carotid bruits. There is no neck vein distension. Respiratory: Chest is non-tender. Lungs are clear to auscultation and breath sounds are symmetrical and equal. Cardiovascular: Heart is regular rate and rhythm. There is no murmur or rub auscultated. There is no peripheral edema and pulses are symmetrical and equal. Abdomen: The abdomen is soft and non-tender. There are normal bowel sounds heard in all four quadrants and there is no organomegaly palpated. Musculoskeletal: There is no back pain noted. Extremities are non-tender with full range of motion- s/p partial left foot amputation. There is good capillary refill. There is no peripheral edema or calf tenderness elicited. Neurological: Patient is alert and oriented to person, place and time. The patient has symmetrical motor strength in all four extremities. Cranial nerves are grossly intact. Deep tendon reflexes are symmetrical and equal in all four extremities. Psychiatric: The patient has an appropriate affect and does not exhibit any anxiety or depression. Triage Information Reviewed: Yes Vital Signs On Initial Exam: Initial Vitals Temp Pulse Resp BP Pulse Ox 96.9 F 82 16 139/87 98 02/03/17 09:15 02/03/17 09:15 02/03/17 09:15 02/03/17 09:15 02/03/17 09:15 Vital Signs Reviewed: Yes Diagnostics - Vital Signs Vital Signs Temp Pulse Resp BP Pulse Ox 02/03/17 09:15 96.9 F 82 16 139/87 98 - Laboratory Lab Results: Lab Results 02/03/17 02/03/17 02/03/17 Range/Units 10:10 10:10 10:10 WBC 8.8 (3.5-10.8) 10^3/ul RBC 3.57 L (4.0-5.4) 10^6/ul Hgb 9.6 L (14.0-18.0) g/dl Hct 30 L (42-52) % MCV 85 (80-94) fL MCH 27 (27-31) pg MCHC 32 (31-36) g/dl RDW 16 H (10.5-15) % Plt Count 257 (150-450) 10^3/ul MPV 8 (7.4-10.4) um3 Neut % (Auto) 78.0 (38-83) % Lymph % (Auto) 13.0 L (25-47) % [place] % (Auto) 6.0 (1-9) % Eos % (Auto) 2.4 (0-6) % Baso % (Auto) 0.6 (0-2) % Absolute Neuts (auto) 6.9 (1.5-7.7) 10^3/ul Absolute Lymphs (auto) 1.1 (1.0-4.8) 10^3/ul Absolute Monos (auto) 0.5 (0-0.8) 10^3/ul Absolute Eos (auto) 0.2 (0-0.6) 10^3/ul Absolute Basos (auto) 0.1 (0-0.2) 10^3/ul Absolute Nucleated RBC 0 10^3/ul Nucleated RBC % 0 INR (Anticoag Therapy) 1.02 (0.89-1.11) APTT 32.9 (26.0-36.3) seconds D-Dimer, Quantitative > 1050 H (Less Than 230) ng/mL Sodium 136 (133-145) mmol/L Potassium 5.9 H (3.5-5.0) mmol/L Chloride 105 (101-111) mmol/L Carbon Dioxide 25 (22-32) mmol/L Anion Gap 6 (2-11) mmol/L BUN 45 H (6-24) mg/dL Creatinine 3.33 H (0.67-1.17) mg/dL Est GFR ( Amer) 25.5 (>60) Est GFR (Non-Af Amer) 19.8 (>60) BUN/Creatinine Ratio 13.5 (8-20) Glucose 153 H (70-100) mg/dL Lactic Acid (0.5-2.0) mmol/L Calcium 9.4 (8.6-10.3) mg/dL Total Bilirubin 0.30 (0.2-1.0) mg/dL AST 15 (13-39) U/L ALT 10 (7-52) U/L Alkaline Phosphatase 66 (34-104) U/L Troponin I 0.01 (<0.04) ng/mL B-Natriuretic Peptide ( - 100) pg/mL Total Protein 7.2 (6.4-8.9) g/dL Albumin 3.3 (3.2-5.2) g/dL Globulin 3.9 (2-4) g/dL Albumin/Globulin Ratio 0.8 L (1-3) 02/03/17 02/03/17 Range/Units 10:10 10:10 WBC (3.5-10.8) 10^3/ul RBC (4.0-5.4) 10^6/ul Hgb (14.0-18.0) g/dl Hct (42-52) % MCV (80-94) fL MCH (27-31) pg MCHC (31-36) g/dl RDW (10.5-15) % Plt Count (150-450) 10^3/ul MPV (7.4-10.4) um3 Neut % (Auto) (38-83) % Lymph % (Auto) (25-47) % [place] % (Auto) (1-9) % Eos % (Auto) (0-6) % Baso % (Auto) (0-2) % Absolute Neuts (auto) (1.5-7.7) 10^3/ul Absolute Lymphs (auto) (1.0-4.8) 10^3/ul Absolute Monos (auto) (0-0.8) 10^3/ul Absolute Eos (auto) (0-0.6) 10^3/ul Absolute Basos (auto) (0-0.2) 10^3/ul Absolute Nucleated RBC 10^3/ul Nucleated RBC % INR (Anticoag Therapy) (0.89-1.11) APTT (26.0-36.3) seconds D-Dimer, Quantitative (Less Than 230) ng/mL Sodium (133-145) mmol/L Potassium (3.5-5.0) mmol/L Chloride (101-111) mmol/L Carbon Dioxide (22-32) mmol/L Anion Gap (2-11) mmol/L BUN (6-24) mg/dL Creatinine (0.67-1.17) mg/dL Est GFR ( Amer) (>60) Est GFR (Non-Af Amer) (>60) BUN/Creatinine Ratio (8-20) Glucose (70-100) mg/dL Lactic Acid 0.9 (0.5-2.0) mmol/L Calcium (8.6-10.3) mg/dL Total Bilirubin (0.2-1.0) mg/dL AST (13-39) U/L ALT (7-52) U/L Alkaline Phosphatase (34-104) U/L Troponin I (<0.04) ng/mL B-Natriuretic Peptide 20 ( - 100) pg/mL Total Protein (6.4-8.9) g/dL Albumin (3.2-5.2) g/dL Globulin (2-4) g/dL Albumin/Globulin Ratio (1-3) Result Diagrams: 02/03/17 10:10 02/03/17 10:10 Lab Statement: Any lab studies that have been ordered have been reviewed, and results considered in the medical decision making process. - Radiology CXR Xray Interpretation: No Acute Changes Radiology Interpretation Completed By: Radiologist - EKG 10:21 EKG Interpretation: POOR AIRWAY PROGRESSION, NML AXIS, NSR - Additional Comments Diagnostic Additional Comments: LUNG VQ SCAN IMPRESSION: LOW PROBABILITY FOR PULMONARY EMBOLISM. Re-Evaluation - Re-Evaluation First Eval Re-Evaluation Time: 12:11 - discussed labs, imaging, and plan of action Change: Unchanged Disposition - Course Assessment/Plan: 51 year old male presents with SOB starting this morning lasting 2-3 hours. He reports that he was attempting to get up this morning when he becomes SOB and had cold sweats. He denies any use of blood thinners. PMHx is significant of partial left foot amputation- Dr Galarza- 01/30/17 - oxycodone for pain -and DM (reports sugar today is 167). Pt was scheduled for outpatient blood trasfusion but Hb was increased to 9.6 and transfusion was not done. Labs drawn - elevated D-Dimer, RBC (3.57), glucose (153). CXR taken - nml. EKG- poor airway progression but otherwise NML. LUNG SCAN VQ - LOW PROBABILITY FOR PULMONARY EMBOLISM. Will consult for admission- Kerri to see patient in ED - agrees to admisison - Differential Dx - Cardiopulmonary Differential Diagnoses - Cardiopulmonary: Acute Coronary, Acute Dyspnea, CAD, Cardiomyopathy, CHF, Myocardial Infarction, Pulmonary Embolism, Other - anemia, acute renal failure - Diagnoses Provider Diagnoses: Dyspnea, Renal failure, Anemia - Physician Notifications Discussed Care Of Patient With: Dr. Manning Time Discussed With Above Provider: 12:20 - will see patient in ED Instructed by Provider To: MD Will See In ED - TO ADMIT Discharge - Discharge Plan Condition: Stable Disposition: ADMITTED TO [facility] Referrals: Kell Rodriguez MD [Primary Care Provider] - The documentation as recorded by the Pascual vicente Auryana accurately reflects the service I personally performed and the decisions made by me, Bo Walker MD.
[2017-02-03] MEDS: Insulin LISPRO* 1 UNITS UNIT SUBCUT SCH (16:50)
[2017-02-03] MEDS ORDERED: Spiriva Inhaler DEVICE* 1 EACH DEVICE INH ONE (17:00)
--- NOTE | 2017-02-03 19:02 | HP ---
AMENDED REPORT NOW INCLUDES COSIGNER DESIGNATION - ESIGNED BEFORE ADJUSTMENT HISTORY AND PHYSICAL: DATE OF ADMISSION: 02/03/17 PRIMARY CARE PROVIDER: Dr. Rodriguez. ATTENDING PHYSICIAN WHILE IN THE HOSPITAL: Dr. Francisco J Manning * (report dictated by Duane Sutton NP). CHIEF COMPLAINT: 1. Shortness of breath. 2. Fall. HISTORY OF PRESENT ILLNESS: Mr. Galo is a 51-year-old male patient with multiple medical problems. He comes in to the ER today stating that this morning he got up, he was moving around the house, doing his activities of daily living, getting ready for the day. He went up and down the stairs. After getting back down the stairs, he felt short of breath. He felt tired. He wanted to go sit down and the chair was not where he thought it was and he sat down and fell on the floor. He told his sister that he would be okay, just to give him a minute. She was concerned and called 911. He had not had any chest pain. He denied having shortness of breath now. He says by the time the ambulance got there, he was feeling better, was not having anymore shortness of breath, but he still proceeded to come in to the ER. He denies any recent changes in medications. Denies having any chest pain. Denies any shortness of breath or any orthopnea currently. Denies having any abdominal pain. No nausea , no vomiting. Denied having any dysuria. He came in to the ER. He was ultimately found to have an elevated potassium level and there was concern because of the shortness of breath that he had and we, the hospitalist service, were asked to evaluate for admission. PAST MEDICAL HISTORY: Significant for: 1. Hypertension. 2. Hyperlipidemia. 3. Diabetes. 4. Peripheral vascular disease. 5. Depression. 6. CKD. 7. Anemia. 8. Neuropathy. PAST SURGICAL HISTORY: 1. He has had a left transmetatarsal amputation. 2. He has had right first and second toe amputation. MEDICATIONS: Home medications according to the list that we were able to obtain include: 1. Oxycodone 10 mg p.o. every 4 hours as needed. 2. Spiriva 1 capsule inhaled daily. 3. Zocor 20 mg daily. 4. Zantac 150 mg p.o. b.i.d. 5. Zosyn 10 cc an hour continuous infusion. 6. Lisinopril/hydrochlorothiazide 1 tablet daily. 7. Procardia 30 mg daily. 8. Ativan 0.5 mg p.o. daily as needed. 9. NovoLog 10 units subcu b.i.d. 10. NovoLog 20 units subcu in the morning. 11. Insulin glargine 80 units subcu q.a.m. 12. Hydrochlorothiazide 25 mg in the morning. 13. Heparin flush per protocol. 14. Lasix 40 mg daily. 15. Aspirin 325 mg daily. 16. Ventolin 2 puffs inhaler every 4 hours as needed. ALLERGIES TO MEDICATIONS: Include SULFA, CODEINE. FAMILY HISTORY: His father was diabetic. Mother's history was reviewed and noncontributory. SOCIAL HISTORY: He is a former smoker. He does not drink alcohol. Surrogate decision maker is his sister. REVIEW OF SYSTEMS: There is no documented fever. He denied having any significant weight change. There was no double vision. There is no ear discharge. He denies having any rhinorrhea. No sore throat. No thyroid enlargement. Denies having any chest pain. There is no orthopnea. There is no nocturnal dyspnea. There is no abdominal pain. No nausea, no vomiting. No dysuria, no frequency. There was no loss of consciousness. No pruritus and no skin ulcerations. Review of 14 systems completed, all others negative. PHYSICAL EXAMINATION GENERAL: At this time, Mr. Galo is a 51-year-old male patient. He is chronically ill appearing. He is sitting in the ER stretcher. He does not appear to be in any acute distress. VITAL SIGNS: Reveal blood pressure 157/80 with a pulse of 85, respirations 16, O2 sat 97%, and temperature 96.9. HEENT: Head is atraumatic and normocephalic. Eyes: EOMs are intact. Sclerae anicteric, not pale. Throat: Oral mucosa appears to be moist. No oropharyngeal erythema. NECK: Supple. LUNGS: Clear to auscultation bilaterally. No wheezes, rales, or rhonchi. HEART: Sounds S1, S2. Regular rate and rhythm. No murmurs, rubs, or gallops. ABDOMEN: Soft, flat, and nontender. Bowel sounds present. EXTREMITIES: Pulses 2+ throughout. He is able to move all 4 extremities. NEUROLOGIC: He is awake, alert, and oriented x3. Tongue midline. Drum Sealer are equal. No gross focal deficits. SKIN: Intact with the exception, he has an incision noted to the left lower extremity which is covered with an Yfn dressing, it is clean, dry, and intact. DIAGNOSTIC STUDIES/LAB DATA: Today revealed WBC 8.8, RBC of 3.57, hemoglobin 9.6, hematocrit of 30, INR 1.02, PTT of 32.9. D-dimer greater than 1050. Sodium 126, potassium 5.9, chloride of 105, bicarb 25, BUN 45, his creatinine was 3.33 which is slightly elevated from his baseline, glucose 153, lactate 0.9 , calcium 9.4. Total bili 0.3, AST 15, ALT 10, alk phos 56. Troponin 0.01. BNP 20. Albumin is 3.3. He had a lung V/Q scan today, which showed low probability scan for pulmonary embolism. He had a chest x-ray obtained today which revealed no evidence for acute disease. EKG obtained today showed normal sinus rhythm, rate of 82. No ST elevation or T - wave inversion. He had a stress test 3 weeks ago, which read decreased ejection fraction, unchanged from previous exam. No evidence for focal infarct or ischemia. Old medical records were reviewed. ASSESSMENT AND PLAN: Mr. Galo is a 51-year-old male patient coming in to the ER today with complaints of shortness of breath. On evaluation, he was found to be hyperkalemic. He will be admitted under observation status for: 1. Shortness of breath: At this point, he says he has been feeling more short of breath particularly in the morning. He does not appear to be in any failure , but I think, maybe we should check for sleep apnea. I am going to get a pulse oximetry overnight. Follow with his primary for this. Also, maybe get a pulmonary function test in the outpatient setting as well. He may have underlying lung disease as he was a former smoker and he can follow with his primary. We will continue to follow. 2. Hypertension: Continue meds as prescribed. 3. Hyperlipidemia: Continue meds as prescribed. 4. Diabetes: Lispro sliding scale and Lantus. 5. Peripheral vascular disease: He is on aspirin therapy at this point. We will continue with that and statin. 6. Chronic kidney disease: He does have a mild acute kidney injury with chronic kidney disease. We will hydrate him and we will repeat in the morning and follow. 7. Depression: Continue supportive care. 8. Neuropathy: Continue meds as prescribed. 9. Hyperkalemia: At this point, we will hydrate him, we will go ahead and give him Kayexalate. Repeat this later tonight. 10. Anemia: His H and H are actually stable at 9.6. It was 8. We will monitor this. Repeat labs in the morning. 11. DVT prophylaxis: He will be placed on heparin subcu. He is high risk. 12. Fluids, electrolytes, and nutrition: He can have a consistent carb diet. TIME SPENT: On the admission was approximately 70 minutes; greater than half the time was spent [id number] with the patient obtaining my history and physical, other half the time spent going over the plan of care with the patient and implementing plan of care. I did discuss the plan of care with my attending, Dr. Manning; he is in agreement. DUANE SUTTON NP CC: Dr. Rodriguez* [id number]/[facility] #: [id number] KEDAR
[2017-02-03 20:20] LABS: BUN/Creatinine Ratio 12.9 (8-20); Calcium 8.7 mg/dL (8.6-10.3); EGFR African American 25.5 (>60); EGFR Non-African American 19.8 (>60); Potassium 4.8 mmol/L (3.5-5.0)
[2017-02-03] MEDS ORDERED: [UNRECOGNIZED DRUG - OTHER] IVPB SCH (22:00)
[2017-02-03] MEDS ORDERED: PIPERACILLIN IVPB SCH (22:00)
[2017-02-03] MEDS ORDERED: SODIUM CHLORIDE IVPB SCH (22:00)
[2017-02-03] MEDS ORDERED: TAZOBACTAM IVPB SCH (22:00)
[2017-02-03] MEDS: Heparin VIAL(*) 5000 UNITS/ML VIAL (FIVE THOUSAND) SUBCUT SCH (22:41)
[2017-02-04] MEDS: Heparin VIAL(*) 5000 UNITS/ML VIAL (FIVE THOUSAND) SUBCUT SCH (05:37)
[2017-02-04 05:53] LABS: Hematocrit 28 % (42-52); Hemoglobin 8.6 g/dl (14.0-18.0); Mean Corpuscular HGB Conc 31 g/dl (31-36); Mean Corpuscular Hemoglobin 27 pg (27-31); Mean Corpuscular Volume 85 fL (80-94); Mean Platelet Volume 8 um3 (7.4-10.4); Red Blood Count 3.23 10^6/ul (4.0-5.4); Red Cell Distribution Width 16 % (10.5-15); White Blood Count 5.6 10^3/ul (3.5-10.8)
[2017-02-04 06:08] LABS: BUN/Creatinine Ratio 12.2 (8-20); Calcium 8.7 mg/dL (8.6-10.3); EGFR African American 25.9 (>60); EGFR Non-African American 20.2 (>60); Potassium 4.4 mmol/L (3.5-5.0)
[2017-02-04 07:39] VITALS: BP 169/91
[2017-02-04] MEDS: Insulin LISPRO* 1 UNITS UNIT SUBCUT SCH (08:44)
[2017-02-04] MEDS ORDERED: Furosemide TAB* 40 MG PO SCH (09:00)
[2017-02-04] MEDS ORDERED: Insulin GLARGINE(*) 1 UNITS UNIT SUBCUT SCH (09:00)
[2017-02-04] MEDS ORDERED: Tiotropium CAP.INH* CAP.INH/18 MCG INH SCH (09:00)
[2017-02-04] MEDS ORDERED: Hydrochlorothiazide TAB* 25 MG PO SCH ×2 (09:00)
[2017-02-04] MEDS ORDERED: NIFEdipine ER TAB* 30 MG PO SCH (09:00)
[2017-02-04] MEDS ORDERED: Lisinopril TAB* 10 MG PO SCH (09:00)
[2017-02-04] MEDS ORDERED: Aspirin TAB* 325 MG PO SCH (09:00)
[2017-02-04] MEDS ORDERED: Atorvastatin* 10 MG TAB PO SCH (09:00)
--- NOTE | 2017-02-04 09:47 | DCNOTE ---
Subjective Date of Service: 02/04/17 Interval History: Feels better, anxious to go home. He states the tiotropium helped more than other resp meds. He states he has diarrhea every time he eats. Objective Active Medications: Acetaminophen (Tylenol Tab*) 650 mg PO Q4H PRN PRN Reason: FEVER/PAIN Albuterol (Ventolin Hfa Inhaler*) 2 puff INH Q4H PRN PRN Reason: SOB/WHEEZING Aspirin (Aspirin Tab*) 325 mg PO DAILY [facility] Last Admin: 02/04/17 08:44 Dose: 325 mg Atorvastatin Calcium (Lipitor*) [facility] [place] Last Admin: 02/04/17 08:44 Dose: 10 mg Dextrose (D50w Syringe 50 Ml*) 12.5 gm IV PUSH .FOR FS < 60 - SS PRN PRN Reason: FS < 60 Furosemide (Lasix Tab*) [facility] [place] Last Admin: 02/04/17 08:44 Dose: 40 mg Heparin Sodium (Porcine) (Heparin Flush Picc/Ml/Cvc(*)) 1 ml FLUSH 0600,1800 [facility] PRN Reason: Protocol Last Admin: 02/04/17 05:40 Dose: Not Given Heparin Sodium (Porcine) (Heparin Vial(*)) 5,000 units SUBCUT Q8HR [facility] Last Admin: 02/04/17 05:37 Dose: 5,000 units Hydrochlorothiazide (Hydrodiuril Tab*) 25 mg PO DAILY [facility] Last Admin: 02/04/17 08:44 Dose: 25 mg Insulin Glargine (Lantus(*)) 64 [facility] [place] Last Admin: 02/04/17 08:44 Dose: 64 unit Insulin Human Lispro (Humalog*) 0 units SUBCUT AC [facility] PRN Reason: Protocol Last Admin: 02/04/17 08:44 Dose: 3 unit Lisinopril (Prinivil Tab*) [facility] [place] Last Admin: 02/04/17 08:44 Dose: 20 mg Nifedipine (Procardia Xl Tab*) 30 mg PO DAILY [facility] Last Admin: 02/04/17 08:45 Dose: 30 mg Ondansetron HCl (Zofran Inj*) 4 mg IV Q6H PRN PRN Reason: NAUSEA Oxycodone HCl (Roxycodone Tab*) 10 mg PO Q4H PRN PRN Reason: PAIN Last Admin: 02/03/17 22:40 Dose: 10 mg Tiotropium [place] (Spiriva Cap.Inh*) 1 cap INH DAILY [facility] Last Admin: 02/04/17 08:14 Dose: 1 cap Vital Signs 02/03/17 02/03/17 02/03/17 15:29 16:02 16:37 Temperature 96.9 F 97.8 F Pulse Rate 72 86 Respiratory 16 16 Rate Blood Pressure 157/80 122/83 121/79 (mmHg) O2 Sat by Pulse 100 Oximetry 02/03/17 02/03/17 02/03/17 19:20 20:00 22:40 Temperature 98.4 F Pulse Rate 83 Respiratory 17 17 19 Rate Blood Pressure 158/80 (mmHg) O2 Sat by Pulse 99 Oximetry 02/03/17 02/04/17 02/04/17 23:37 00:40 00:43 Temperature 98.1 F Pulse Rate 81 Respiratory 16 18 Rate Blood Pressure 123/63 (mmHg) O2 Sat by Pulse 95 99 Oximetry 02/04/17 02/04/17 02/04/17 04:27 07:26 08:16 Temperature 97.9 F 97.9 F Pulse Rate 76 79 78 Respiratory 16 18 15 Rate Blood Pressure 158/82 169/91 (mmHg) O2 Sat by Pulse 98 99 98 Oximetry Oxygen Devices in Use Now: Nasal Cannula Appearance: Alert, sitting up in bed. In good spirits. Looks comfortable. Eyes: No Scleral Icterus Neck: NL Appearance and Movements; NL JVP, No Thyroid Enlargement, Masses Respiratory: Symmetrical Chest Expansion and Respiratory Effort, Clear to Auscultation, Clear to Percussion Cardiovascular: NL Sounds; No Murmurs; No JVD, RRR, No Edema, - Extremities: No Edema, No Clubbing, Cyanosis, - - L foot bandaged, forefoot amputation. Skin: No Rash or Ulcers, No Nodules or Sclerosis, - Neurological: Alert and Oriented x 3, NL Sensation Result Diagrams: 02/04/17 05:30 02/04/17 05:30 Additional Lab and Data: Lab Results 02/03/17 02/03/17 02/03/17 Range/Units 10:10 10:10 10:10 WBC 8.8 (3.5-10.8) 10^3/ul RBC 3.57 L (4.0-5.4) 10^6/ul Hgb 9.6 L (14.0-18.0) g/dl Hct 30 L (42-52) % MCV 85 (80-94) fL MCH 27 (27-31) pg MCHC 32 (31-36) g/dl RDW 16 H (10.5-15) % Plt Count 257 (150-450) 10^3/ul MPV 8 (7.4-10.4) um3 Neut % (Auto) 78.0 (38-83) % Lymph % (Auto) 13.0 L (25-47) % Moody % (Auto) 6.0 (1-9) % Eos % (Auto) 2.4 (0-6) % Baso % (Auto) 0.6 (0-2) % Absolute Neuts (auto) 6.9 (1.5-7.7) 10^3/ul Absolute Lymphs (auto) 1.1 (1.0-4.8) 10^3/ul Absolute Monos (auto) 0.5 (0-0.8) 10^3/ul Absolute Eos (auto) 0.2 (0-0.6) 10^3/ul Absolute Basos (auto) 0.1 (0-0.2) 10^3/ul Absolute Nucleated RBC 0 10^3/ul Nucleated RBC % 0 INR (Anticoag Therapy) 1.02 (0.89-1.11) APTT 32.9 (26.0-36.3) seconds D-Dimer, Quantitative > 1050 H (Less Than 230) ng/mL Sodium 136 (133-145) mmol/L Potassium 5.9 H (3.5-5.0) mmol/L Chloride 105 (101-111) mmol/L Carbon Dioxide 25 (22-32) mmol/L Anion Gap 6 (2-11) mmol/L BUN 45 H (6-24) mg/dL Creatinine 3.33 H (0.67-1.17) mg/dL Est GFR ( Amer) 25.5 (>60) Est GFR (Non-Af Amer) 19.8 (>60) BUN/Creatinine Ratio 13.5 (8-20) Glucose 153 H (70-100) mg/dL Lactic Acid (0.5-2.0) mmol/L Calcium 9.4 (8.6-10.3) mg/dL Total Bilirubin 0.30 (0.2-1.0) mg/dL AST 15 (13-39) U/L ALT 10 (7-52) U/L Alkaline Phosphatase 66 (34-104) U/L Troponin I 0.01 (<0.04) ng/mL B-Natriuretic Peptide ( - 100) pg/mL Total Protein 7.2 (6.4-8.9) g/dL Albumin 3.3 (3.2-5.2) g/dL Globulin 3.9 (2-4) g/dL Albumin/Globulin Ratio 0.8 L (1-3) 02/03/17 02/03/17 Range/Units 10:10 10:10 WBC (3.5-10.8) 10^3/ul RBC (4.0-5.4) 10^6/ul Hgb (14.0-18.0) g/dl Hct (42-52) % MCV (80-94) fL MCH (27-31) pg MCHC (31-36) g/dl RDW (10.5-15) % Plt Count (150-450) 10^3/ul MPV (7.4-10.4) um3 Neut % (Auto) (38-83) % Lymph % (Auto) (25-47) % Moody % (Auto) (1-9) % Eos % (Auto) (0-6) % Baso % (Auto) (0-2) % Absolute Neuts (auto) (1.5-7.7) 10^3/ul Absolute Lymphs (auto) (1.0-4.8) 10^3/ul Absolute Monos (auto) (0-0.8) 10^3/ul Absolute Eos (auto) (0-0.6) 10^3/ul Absolute Basos (auto) (0-0.2) 10^3/ul Absolute Nucleated RBC 10^3/ul Nucleated RBC % INR (Anticoag Therapy) (0.89-1.11) APTT (26.0-36.3) seconds D-Dimer, Quantitative (Less Than 230) ng/mL Sodium (133-145) mmol/L Potassium (3.5-5.0) mmol/L Chloride (101-111) mmol/L Carbon Dioxide (22-32) mmol/L Anion Gap (2-11) mmol/L BUN (6-24) mg/dL Creatinine (0.67-1.17) mg/dL Est GFR ( Amer) (>60) Est GFR (Non-Af Amer) (>60) BUN/Creatinine Ratio (8-20) Glucose (70-100) mg/dL Lactic Acid 0.9 (0.5-2.0) mmol/L Calcium (8.6-10.3) mg/dL Total Bilirubin (0.2-1.0) mg/dL AST (13-39) U/L ALT (7-52) U/L Alkaline Phosphatase (34-104) U/L Troponin I (<0.04) ng/mL B-Natriuretic Peptide 20 ( - 100) pg/mL Total Protein (6.4-8.9) g/dL Albumin (3.2-5.2) g/dL Globulin (2-4) g/dL Albumin/Globulin Ratio (1-3) Assess/Plan/Problems-Billing Assessment: - Patient Problems (1) COPD (chronic obstructive pulmonary disease) Current Visit: No Status: Acute Code(s): J44.9 - CHRONIC OBSTRUCTIVE PULMONARY DISEASE, UNSPECIFIED SNOMED Code(s): 25389889 Comment: Rx for Spiriva transmitted. (2) Osteomyelitis of ankle or foot Current Visit: No Status: Acute Code(s): M86.9 - OSTEOMYELITIS, UNSPECIFIED SNOMED Code(s): 86054464 Comment: Pt has supply of IV antibiotic at home, seems to be very familiar with the use of it. (3) CKD (chronic kidney disease) Current Visit: No Status: Acute Code(s): N18.9 - CHRONIC KIDNEY DISEASE, UNSPECIFIED (4) Diabetes Current Visit: No Status: Chronic Code(s): E11.9 - TYPE 2 DIABETES MELLITUS WITHOUT COMPLICATIONS SNOMED Code(s): 40468895 Comment: Resume home DM meds. (5) Morbid obesity Current Visit: No Status: Chronic Code(s): E66.01 - MORBID (SEVERE) OBESITY DUE TO EXCESS CALORIES SNOMED Code(s): 806555881 Comment: BMI 40.3. Status and Disposition: Discharge now. Fup Dr. Rodriguez.
--- NOTE | 2017-02-04 14:01 | DS ---
CC: Dr. Rodriguez DISCHARGE SUMMARY: DATE OF ADMISSION: DATE OF DISCHARGE: 02/04/17 HISTORY AND HOSPITAL COURSE: This 51-year-old man presented with shortness of breath. He also had a fall at home possibly related to fatigue, shortness of breath and recent forefoot amputation. In the emergency room, he had hyperkalemia. I think his shortness of breath might be in part related to stress and anxiety superimposed on his chronic obstructive lung disease. The patient was given Kayexalate 30 g in the emergency room. He was given as usual medical treatment. He was covered with lispro for his diabetes. The next morning, he did quite well. He did tell me that he always has a lot of bowel movements every time he eats anything. He says his sister tries to help him with his low potassium diet and he has changed his diet accordingly. He is taking home IV antibiotics and seems very knowledgeable and capable of continuing this. The patient stated that the tiotropium inhalation here helped better than most of the respiratory medications he has used. I transmitted a prescription for this. I also transmitted a prescription for Kayexalate powder 15 g to take every Monday and . This is not mixed with laxatives, it should be constipating. I note his potassium level in the hospital fell from 5.9 to 4.4 after the Kayexalate dose. FINAL DIAGNOSES: 1. Chronic obstructive pulmonary disease. 2. Renal insufficiency with hyperkalemia. 3. Morbid obesity. 4. Diabetes mellitus. 5. Recent forefoot amputation for osteomyelitis. DISCHARGE MEDICATIONS: 1. Piperacillin/tazobactam 3.375 g every 8 hours. 2. Sodium polystyrene 15 g every Monday and . 3. Furosemide 40 mg daily. 4. Lisinopril/Hydrochlorothiazide 20/25 one daily. 5. Tiotropium 1 capsule daily. 6. Regular insulin 20 units every morning. 7. Glargine insulin 80 units every morning. 8. Ranitidine 150 mg b.i.d. 9. Lorazepam 0.5 mg as needed. 10. Albuterol inhaler 2 puffs every 4 hours p.r.n. 11. Simvastatin 20 mg daily. 12. Nifedipine 30 mg daily. 13. Regular insulin 10 units twice daily. 14. Aspirin 325 mg daily. 15. Heparin flush after each antibiotic as per protocol. 16. Oxycodone 5 mg, to take 10 mg every 4 hours p.r.n. [id number]/[facility] #: [id number] [facility]
== END 2017-02-04 11:00 | disposition home or self-care (01) ==
LOC: ED 09:07 → MEDTELE 15:25
PROVIDERS: ADMIT Internal Medicine; ATTEND Internal Medicine
DX: R06.02 Shortness of breath (principal); J44.9 Chronic obstructive pulmonary disease, unspecified; E87.5 Hyperkalemia; E66.01 Morbid (severe) obesity due to excess calories; I12.9 Hypertensive chronic kidney disease with stage 1 through stage 4 chronic kidney disease, or unspecified chronic kidney disease; E11.22 Type 2 diabetes mellitus with diabetic chronic kidney disease; N18.9 Chronic kidney disease, unspecified; I73.9 Peripheral vascular disease, unspecified; D64.9 Anemia, unspecified; G62.9 Polyneuropathy, unspecified; F32.9 Major depressive disorder, single episode, unspecified; Z79.4 Long term (current) use of insulin; Z79.82 Long term (current) use of aspirin; Z79.899 Other long term (current) drug therapy; Z88.2 Allergy status to sulfonamides; Z88.5 Allergy status to narcotic agent
CPT/HCPCS: 36415; 71010; 78582; 80048; 80053; 83605; 83880; 84484; 85025; 85379; 85610; 85730; 93005; 94640; 94760; 94762; 96360; 96361; 99284; A9270-GY; A9540; A9558; G0378; J1644

== ENCOUNTER 2017-10-14 16:27 | Inpatient (IN) | payer MEDICARE, MEDICAID ==
--- NOTE | 2017-10-14 17:51 | ED ---
Lower Extremity - HPI Summary HPI Summary: 52 male presents to ED BIBA with complaints of stepping on a screwnail this morning [employer]. Patient states he removed the screw by himself and states he experienced a good amount of bleeding. It has since resolved. States he was just diagnosed with osteomyelitis at [facility] and admitted for 4 days. Was released on 10/12/17. Was getting IV antibiotics however since he has been home is taking oral antibiotics he is unsure of the name. Has not had any symptoms since until stepping on this screwnail. Denies fever/chills. Denies any pain however patient has neuropathy. Patient PMHx includes HTM and DM. Has had osteomyelitis in the past. Has had amputations from it. Came in today due to concern for infection and the bleeding. No other complaints. Is resting comfortably. Wears prosthetic shoes. States the screwnail was in between in 2-[address] Galarza for his feet. Denies chest pain, weakness, trouble breathing and pain. Patient states he did vomit up his dose of antibiotic today due to it tasting very badly. - History of Current Complaint Chief Complaint: EDExtremityLower Stated Complaint: RIGHT FOOT INJURY Time Seen by Provider: 10/14/17 17:50 Hx Obtained From: Patient Mechanism Of Injury: Penetrating Trauma - screw in foot Onset/Duration: Hours - resolved Severity Currently: None Pain Intensity: 0 Pain Scale Used: 0-10 Numeric Timing: Intermittent - bleeding, since resolved Character Of Pain: Unable To Describe - none Associated Signs And Symptoms: Positive: Negative - besides bleeding Aggravating Factor(s): Nothing Alleviating Factor(s): Rest Able to Bear Weight: Yes Feet (Multiple View): 1 - screwnail enterance - Allergies/Home Medications Allergies/Adverse Reactions: Allergies Allergy/AdvReac Type Severity Reaction Status Date / Time Spinach Allergy Swelling Verified 01/23/17 12:54 Sulfamethoxazole Allergy KIDNEY Verified 01/23/17 12:54 w/Trimethoprim PROBLEMS [From Bactrim] Codeine AdvReac Intermediate Dizziness Verified 01/23/17 12:54 Peanutbutter Allergy Intermediate Vomiting Uncoded 01/23/17 12:54 Strawberries Allergy Intermediate Swelling Uncoded 01/23/17 12:54 PMH/Surg Hx/FS Hx/Imm Hx Endocrine/Hematology History: Reports: Hx Diabetes - IDDM, Hx Anemia Denies: Hx Blood Transfusions, Hx Systemic Lupus Erythematosus, Hx Thyroid Disease, Other Endocrine/Hematological Disorders Cardiovascular History: Reports: Hx Hypercholesterolemia, Hx Hypertension Denies: Hx Angina, Hx Congestive Heart Failure, Hx Coronary Artery Disease, Hx Myocardial Infarction, Hx Pacemaker/ICD Respiratory History: Reports: Hx Chronic Obstructive Pulmonary Disease (COPD) - home O2, Hx Sleep Apnea - UNSURE- SCHEDULED FOR A SLEEP STUDY Denies: Hx Asthma, Hx Pulmonary Embolism GI History: Denies: Hx Ulcer History: Reports: Other Problems/Disorders - CKD Denies: Hx Dialysis, Hx Renal Disease Musculoskeletal History: Reports: Other Musculoskeletal History - right great ote amputation, left partial foot amputation Denies: Hx Rheumatoid Arthritis Sensory History: Reports: Hx Cataracts Denies: Hx Contacts or Glasses, Hx Hearing Aid Opthamlomology History: Reports: Hx Cataracts Denies: Hx Contacts or Glasses Neurological History: Reports: Other Neuro Impairments/Disorders - Hx Pre syncope Psychiatric History: Reports: Hx Anxiety - PRN LORAZEPAM Denies: Hx Panic Disorder - Cancer History Hx Chemotherapy: No - Surgical History Surgery Procedure, Year, and Place: right big toe amputation,. CATARACT WITH LENS IMPLANTS - BY DR DENNEY. Partial left foot amputation Hx Anesthesia Reactions: No Infectious Disease History: No Infectious Disease History: Reports: Hx of Known/Suspected MRSA - negative swab 12/2016 Denies: Hx Hepatitis, Hx Human Immunodeficiency Virus (HIV), History Other Infectious Disease, Traveled Outside the [place] in Last 30 Days - Family History Known Family History: Positive: None, Diabetes Negative: Cardiac Disease - Social History Alcohol Use: Rare Substance Use Type: Reports: None Substance Use Comment - Amount & Last Used: CHEWING TOBACCO Smoking Status (MU): Former Smoker Type: Cigarettes, Smokeless Tobacco Amount Used/How Often: quit in 2009 Length of Time of Smoking/Using Tobacco: 20 YEARS Have You Smoked in the Last Year: No Review of Systems Constitutional: Negative Cardiovascular: Negative Respiratory: Negative Musculoskeletal: Negative Positive: Other - screwnail penetrating trauma however has resolved Neurological: Negative All Other Systems Reviewed And Are Negative: Yes Physical Exam Triage Information Reviewed: Yes Vital Signs On Initial Exam: Initial Vitals Temp Pulse Resp BP Pulse Ox 98.7 F 85 16 159/85 98 10/14/17 16:49 10/14/17 16:49 10/14/17 16:49 10/14/17 16:49 10/14/17 16:49 Vital Signs Reviewed: Yes Appearance: Positive: Well-Appearing, No Pain Distress, Well-Nourished Skin: Positive: Warm, Skin Color Reflects Adequate Perfusion, Dry, Other - infected, sloughing skin and drainage from right distal toes difusely with necrosis to 2nd and 5th digit. non tender. missing great toe from previous amputation. edema. no obvious sign of wound entrance on exam although limited due to ongoing necrosis/cellulitis. Negative: Cold, Cyanosis @, Pale, Weeping Skin/Lesions, Erythema @ Head/Face: Positive: Normal Head/Face Inspection Neck: Positive: Supple, Nontender Respiratory/Lung Sounds: Positive: Clear to Auscultation, Breath Sounds Present. Negative: Rales, Rhonchi, Wheezes Cardiovascular: Positive: Normal, RRR, Pulses are Symmetrical in both Upper and Lower Extremities - 1+ pedal b/l some pitting edema. Negative: Murmur, Rub Musculoskeletal: Positive: Normal, Strength/ROM Intact, Edema Left - foot, 2+, Edema Right - foot, Other - amputated distal foot/toes left, and amputated right great toe with partial amputations to remaining toes due to osteomyleitis. Negative: Limited @, Interruption @, Pain @ Neurological: Positive: Normal, Sensory/Motor Intact - other than bilateral feet due to diabetic neuropathy, Alert, Oriented to Person Place, Time, NV Bundle Intact Distally, Normal Gait - patient's norm Diagnostics - Vital Signs Vital Signs Temp Pulse Resp BP Pulse Ox 10/14/17 16:54 86 98 10/14/17 16:52 159/89 10/14/17 16:49 98.7 F 85 16 159/85 98 - Laboratory Result Diagrams: 10/14/17 19:09 10/14/17 19:09 Lab Statement: Any lab studies that have been ordered have been reviewed, and results considered in the medical decision making process. - Radiology right foot Xray Interpretation: No Acute Changes - Postoperative changes and chronic changes of the second metatarsal. No evidence of foreign body is noted. Radiology Interpretation Completed By: Radiologist - and myself - EKG EKG Cardiac Rate: NL EKG Rhythm: Sinus Rhythm Ectopy: None EKG Interpretation: NSR EKG Comparison: No Significant Change Re-Evaluation - Re-Evaluation First Eval Re-Evaluation Time: 19:15 Change: Unchanged - still feeling fine, viewed foot after soaking no sign of open wounds visualized other than sloughing of skin off due to current infection and osteo Second Eval Re-Evaluation Time: 20:15 Change: Unchanged - still feeling fine. updated on labs and imaging results. understands plan of hyperkalemia, hyperglycemia, rest of lab results. Lower Extremity Course/Dx - Course Course Of Treatment: xray obtained and negative, no sign of FB or fracture. chronic findings due to history and osteomyelitis. labs obtained and no elevation of WBC, no extensive signs of new necrosis on exam other than previously admitted and treated for, with sloughing off/draining of skin , cellulitis, currently still being treated for. Patient unsure of the medication he is taking orally. labs also revealed elevated hyperkalemia and hyperglycemia. patient was placed on telemetry. anemia is chronic. patient has not taken dose of daily insulin as he was supposed to, gave 10 of regular insulin IV and was closely monitored. given 1 amp of calcium gluconate and fluids. slightly dehydrated and worsening BUN/Cr, kidney function. DIONTE. foot was soaked in hiba-cleanse and normal saline. glucose was monitored. re-dressed with triple antibiotic ointment and dressing. tetanus was updated today. EKG obtained due to hyperkalemia and without acute changes, NSR. Patient will be admitted by Dr Gonzalez. - Diagnoses Differential Diagnosis/HQI/PQRI: Positive: Foreign Body, Infection, Osteomyelitis, Puncture Wound, Sprain, Strain, Other - hyperkalemia, hyperglycemia Provider Diagnoses: Hyperglycemia, Hyperkalemia, Osteomyelitis, Cellulitis of foot, right - Physician Notifications Discussed Care Of Patient With: Dr Carlos Delacruz Time Discussed With Above Provider: 20:44 Instructed by Provider To: Admit As Inpatient Discharge - Discharge Plan Condition: Stable Disposition: ADMITTED TO [facility] Referrals: Kell Rodriguez MD [Primary Care Provider] -
[2017-10-14 19:21] LABS: ABS Basophils 0.1 10^3/ul (0-0.2); ABS Eosinophils 0.1 10^3/ul (0-0.6); ABS Monocytes 0.5 10^3/ul (0-0.8); ABS Neutrophils 5.3 10^3/ul (1.5-7.7); ABS Nucleated RBC 0 10^3/ul; Eosinophil % 1.6 % (0-6); Hematocrit 28 % (42-52); Hemoglobin 9.2 g/dl (14.0-18.0); Lymphocyte % 14.5 % (25-47); Mean Corpuscular HGB Conc 33 g/dl (31-36); Mean Corpuscular Hemoglobin 28 pg (27-31); Mean Corpuscular Volume 85 fL (80-94); Mean Platelet Volume 8 um3 (7.4-10.4); Nucleated Red Blood Cells % 0; Platelet Count 231 10^3/ul (150-450); Red Blood Count 3.27 10^6/ul (4.0-5.4); Red Cell Distribution Width 15 % (10.5-15)
[2017-10-14] MEDS ORDERED: Tetan/Diph/Pertus SYR(Tdap)* 0.5 ML SYR(BOOSTRIX) use SYR IM ONE (19:29)
[2017-10-14] MEDS ORDERED: Insulin ISOPH/REG 70/30 (*) 1 UNITS UNIT SUBCUT ONE (19:58)
[2017-10-14] MEDS ORDERED: NS 0.9% 1000 ML* 1,000 ML IV ONE (20:12)
[2017-10-14] MEDS ORDERED: Calcium Gluconate INJ* 1 GM in NS 0.9% 100 ML* 100 ML IVPB ONE (20:12)
[2017-10-14] MEDS ORDERED: Insulin REGULAR(*) 1 UNITS UNIT IV PUSH ONE (20:17)
[2017-10-14] MEDS ORDERED: D5W IVPB ONE (20:51)
[2017-10-14] MEDS ORDERED: CALCIUM GLUCONATE IVPB ONE (20:51)
--- NOTE | 2017-10-14 21:09 | RAD ---
Indication: Right foot injury. 3 views of the right foot demonstrates hypertrophic changes of the distal second metatarsal with first metatarsal amputation. No foreign body is identified. IMPRESSION: Postoperative changes and chronic changes of the second metatarsal. No evidence of foreign body is noted.
[2017-10-14] MEDS ORDERED: Dextrose 50% Syringe 50 ML* 25 GM/50 ML SYRINGE IV PUSH PRN (21:32)
[2017-10-14] MEDS ORDERED: Albuterol 2.5 MG/3 ML NEB.SOL* (0.083%) INH PRN (21:42)
[2017-10-14] MEDS ORDERED: Piperacillin/Tazobac ADVAN(*) 3.375 GM in NS 0.9% 100 ML* 100 ML IVPB ONE (21:49)
[2017-10-14] MEDS ORDERED: Sodium Polystyrene ORAL.SOL* 15 GM/60 ML BTL PO ONE (22:00)
[2017-10-14] MEDS ORDERED: Zosyn per Pharmacy* NOTE FOLLOW UP SCH (22:00)
[2017-10-14] MEDS ORDERED: Vancomycin(*) 1,250 MG in NS 0.9% 250 ML* 250 ML IVPB ONE (23:00)
[2017-10-14] MEDS: NS 0.9% 1000 ML* 1,000 ML IV SCH (23:07)
[2017-10-14] MEDS ORDERED: Vancomycin per Pharmacy* NOTE FOLLOW UP PRN (23:12)
[2017-10-15] MEDS: Heparin VIAL(*) 5000 UNITS/ML VIAL (FIVE THOUSAND) SUBCUT SCH ×4 (00:15→21:23)
--- NOTE | 2017-10-15 00:19 | HP ---
CC: Dr. Rodriguez * HISTORY AND PHYSICAL: DATE OF ADMISSION: 10/14/17 PRIMARY CARE PROVIDER: Dr. Rodriguez. CHIEF COMPLAINT: Bleeding toe. HISTORY OF PRESENT ILLNESS: Mr. Glao is a 52-year-old male with a history of type 2 diabetes, peripheral vascular disease, stage 3 chronic kidney disease, hypertension and hyperlipidemia, who presented to the emergency room after he noted that his toe was bleeding. The patient states that he was admitted to [facility] from 10/09/17 through 10/12/17, where he was diagnosed with right second toe cellulitis and osteomyelitis. The patient was placed on oral antibiotics. He does not know what antibiotic he was placed on and in reviewing the records, 3 antibiotics in fact show up on his report. He was home in his usual state of health when today he was walking from his bathroom and noted that there was a trail of blood. He sat down on the edge of the bed and tried to take his sock off and noted that the sock would not come off. He thought that he had a tack in his toe. The patient ultimately pulled on what he thought was a tack and realized that he had a screw into the tip of his toe. The patient presented to the emergency room for evaluation of this. In the emergency room, the patient was also found to have worsened chronic kidney disease and hyperkalemia. While I was in the room talking with the patient, he suddenly developed chest discomfort. He had discomfort at his IV site in the left antecubital area and immediately following that, he began to have chest pressure. He described this as being in the center of his chest as well as in the left upper quadrant. He then at times stated he thought it might have been gas. The pain was coming and going, and he had no other associated symptoms. PAST MEDICAL HISTORY: 1. Type 2 diabetes. 2. Hypertension. 3. Hyperlipidemia. 4. Peripheral vascular disease. 5. Depression. 6. Stage 3 chronic kidney disease. 7. Diabetic neuropathy. 8. Chronic anemia. PAST SURGICAL HISTORY: 1. Left transmetatarsal amputation. 2. Right first toe amputation. 3. Bilateral LASIK surgery. MEDICATIONS: The patient does not know his medications except for Toujeo 80 units subcutaneous daily and Novolin R 15 units subcutaneous t.i.d. a.c. Also reviewing the outside medication report, it appears the patient is on: 1. Breo Ellipta 1 puff inhale daily. 2. Lisinopril 20 mg p.o. daily. 3. Nifedipine ER 60 mg p.o. daily. 4. Albuterol 1 neb inhaled q.4 hours p.r.n. shortness of breath. 5. Albuterol HFA 2 puffs inhaled q.4 hours p.r.n. shortness of breath. 6. Hydrochlorothiazide 25 mg p.o. daily (records are being requested from [facility]). ALLERGIES: BACTRIM and CODEINE. FAMILY HISTORY: Mom at the age of 63, she had ALS. Dad at the age of 76, he had Alzheimer's. SOCIAL HISTORY: The patient is a nonsmoker. He does not drink alcohol. He does not use any recreational drugs. He is disabled. 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 He is . He has no children. He indicates that his friend, Rolando Cristina, is his healthcare proxy. REVIEW OF SYSTEMS: A complete 11-system review of systems is obtained. Pertinent positives and negatives are as per HPI and otherwise negative. PHYSICAL EXAMINATION GENERAL: The patient is a well-developed middle-aged obese male, lying in the stretcher, in no acute distress. VITAL SIGNS: Blood pressure 152/76, pulse 85, respirations 16, temp 98.7, O2 sat 98% on room air. HEENT: Pupils are equal, they are round. Extraocular muscles are intact. Oropharynx is clear. Oral mucosa is moist. There is no submandibular, cervical or supraclavicular adenopathy. Thyroid is not enlarged. No thyroid nodules noted. PULMONARY: Lungs are clear to auscultation bilaterally. CARDIAC: Normal S1, S2. Regular rate and rhythm. Heart sounds are distant. I do not appreciate any murmurs. There is trace bilateral lower extremity edema. ABDOMEN: Bowel sounds are present. Abdomen is soft, nontender, nondistended. MUSCULOSKELETAL: There is no cyanosis or clubbing of the digits. The patient is status post left transmetatarsal amputation and the stump appears to be well healed. The patient is status post right first toe amputation. SKIN: There is edema and erythema of the right second toe. This also appears to be slightly hammer like with no true nail present, possibly an ulceration at the site of where nail is supposed to be. The patient also has a black eschar that is quite large (the length of the right fifth toe) overlying the lateral aspect of the right fifth toe, this is dry. There is no surrounding erythema. NEUROLOGIC: Cranial nerves II through XII are grossly intact. Sensation is diminished in the bilateral lower extremities. PSYCH: The patient is alert. He is oriented x3. Affect appears appropriate. DIAGNOSTIC STUDIES/LAB DATA: WBC 7.0, hemoglobin 9.2, hematocrit 28, platelets 231,000. Sodium 129, potassium 6.1, chloride 102, CO2 is 21, BUN 60, creatinine 3.61, glucose 376, lactic acid 0.7, calcium 8.8. Bilirubin 0.3, AST 13, ALT 11, alk phos 88. Albumin 2.8. Foot x-ray has not been read. EKG reveals normal sinus rhythm without any acute ST- T wave abnormalities. ASSESSMENT AND PLAN: Mr. Galo is a 52-year-old male with a history of type 2 diabetes, hypertension, hyperlipidemia, peripheral vascular disease, stage 3 chronic kidney disease and diabetic neuropathy, who believes he stepped on a screw on the day of admission and presented to the emergency room after removing the screw at home and was found to be in [id number] renal failure and with hyperkalemia. 1. Foreign body in the foot. To my evaluation of the right foot x-ray, I do not see any remaining foreign body. The patient is clearly status post right first toe amputation. Given the recent diagnosis of osteomyelitis, I will go ahead and start the patient on vancomycin and Zosyn. The patient should be evaluated by Orthopedics relatively soon for possible amputation of the second toe, though this does not appear to be urgent at this time. I have requested Infectious Disease consultation that was performed at [facility] to be faxed over. A CRP will be obtained. The patient had a tetanus shot in the emergency room. 2. Ppxyh-eu-ncnldsc renal failure. The patient's baseline creatinine based on labs that we have had in the hospital reveals baseline to be in the mid 2 range. His creatinine currently is 3.61. The patient will receive normal saline at 100 mL per hour and I am going to hold his lisinopril and hydrochlorothiazide. Followup BMP will be obtained tomorrow morning. 3. Hyperkalemia. I suspect the patient's hyperkalemia is secondary to the worsened renal function and possibly IRMA inhibitor. As above, the patient's IRMA is going to be held and he will be hydrated. The patient did receive regular insulin IV and calcium gluconate. I will also order Kayexalate 15 g p.o. once. A followup electrolyte panel will be obtained at midnight tonight. 3. Type 2 diabetes. The patient will be maintained on Lantus 80 units subcutaneous daily and Novolin R 15 units subcutaneous t.i.d. and in addition, I will add a lispro sliding scale. Blood sugars will be checked a.c./h.s. A hemoglobin A1c has been added to the ER lab work. The patient's most recent hemoglobin A1c in our system was from December 2006 and was elevated at 8.2% at that point. 4. Hypertension. The patient's blood pressure is moderately elevated at this time. Given I am holding his lisinopril and hydrochlorothiazide, I will go ahead and start hydralazine p.r.n. for elevated blood pressures. I will continue his nifedipine ER and we will monitor his blood pressure. 5. Hyponatremia. The patient's sodium corrects to be 133. We will get a followup electrolyte panel this evening at midnight. In the meantime, he will be placed on normal saline at 100 mL per hour. Additionally, I am going to hold his hydrochlorothiazide for now. 6. DVT prophylaxis. According to the Adult Thrombosis Prophylaxis Risk Factor Assessment Guide, the patient has a total risk factor score of 3 making him high risk. He will be placed on heparin 5000 units subcutaneous q.8 hours. Code status is full and again the patient indicates that his friend, Rolando Cristina, is his healthcare proxy. TIME SPENT: Sixty five minutes were spent admitting this patient. [id number]/[facility] #: [id number] KEDAR
[2017-10-15] MEDS: Gabapentin CAP(*) 100 MG PO SCH ×4 (00:27→19:58)
[2017-10-15] MEDS ORDERED: Vancomycin(*) 750 MG in NS 0.9% 250 ML* 250 ML IVPB ONE (02:00)
[2017-10-15] MEDS: ZOSYN 3.375 GM Q8H per EXTENDED INFUSION IVPB SCH ×6 (05:03→19:43)
[2017-10-15 05:08] LABS: ABS Basophils 0.1 10^3/ul (0-0.2); ABS Eosinophils 0.1 10^3/ul (0-0.6); ABS Lymphocytes 1.1 10^3/ul (1.0-4.8); ABS Monocytes 0.5 10^3/ul (0-0.8); ABS Neutrophils 3.9 10^3/ul (1.5-7.7); ABS Nucleated RBC 0 10^3/ul; Eosinophil % 2.3 % (0-6); Hematocrit 27 % (42-52); Hemoglobin 8.9 g/dl (14.0-18.0); Lymphocyte % 18.6 % (25-47); Mean Corpuscular HGB Conc 33 g/dl (31-36); Mean Corpuscular Hemoglobin 28 pg (27-31); Mean Corpuscular Volume 84 fL (80-94); Mean Platelet Volume 8 um3 (7.4-10.4); Nucleated Red Blood Cells % 0; Platelet Count 207 10^3/ul (150-450); Red Blood Count 3.16 10^6/ul (4.0-5.4); Red Cell Distribution Width 15 % (10.5-15); White Blood Count 5.7 10^3/ul (3.5-10.8)
[2017-10-15 05:29] LABS: EGFR Non-African American 18.7 (>60)
[2017-10-15] MEDS ORDERED: Sodium Polystyrene ORAL.SOL* 15 GM/60 ML BTL PO ONE (08:31)
[2017-10-15] MEDS: Insulin GLARGINE(*) 1 UNITS UNIT SUBCUT SCH (08:36)
[2017-10-15] MEDS: Insulin LISPRO* 1 UNITS UNIT SUBCUT SCH ×4 (08:37→21:23)
[2017-10-15] MEDS: Insulin REGULAR(*) 1 UNITS UNIT SUBCUT SCH ×3 (08:38→17:20)
[2017-10-15] MEDS: NIFEdipine ER TAB* 30 MG PO SCH (08:38)
[2017-10-15] MEDS ORDERED: Pneumococcal *Vac Polyvalent 0.5 ML VIAL IM ONE (09:00)
--- NOTE | 2017-10-15 11:35 | PN ---
Subjective Date of Service: 10/15/17 Interval History: Pt is had had problems with toes in R foot for several weeks. Yesterday R 2nd toe was bleeding and he pulled out a screw from it - he said the he stepped on a screw from a sheet rock lying on the floor. Objective Active Medications: Albuterol (Ventolin 2.5 Mg/3 Ml Neb.Sabrina*) 2.5 mg INH Q4H PRN PRN Reason: SOB/WHEEZING Dextrose (D50w Syringe 50 Ml*) 12.5 gm IV PUSH .FOR FS < 60 - SS PRN PRN Reason: FS < 60 Gabapentin (Neurontin Cap(*)) 100 mg PO TID [facility] Last Admin: 10/15/17 08:39 Dose: 100 mg Heparin Sodium (Porcine) (Heparin Vial(*)) 5,000 units SUBCUT Q8HR [facility] Last Admin: 10/15/17 05:03 Dose: 5,000 units Hydralazine HCl (Apresoline Iv*) 5 mg IV SLOW PU Q6H PRN PRN Reason: SBP>170 Sodium Chloride (Ns 0.9% 1000 Ml*) 1,000 mls @ 100 mls/hr IV PER RATE [facility] Last Admin: 10/14/17 23:07 Dose: 100 mls/hr Piperacillin Sod/Tazobactam (Sod 3.375 gm/ Sodium Chloride) 100 mls @ 25 mls/ hr IVPB Q8H [facility] Last Admin: 10/15/17 05:03 Dose: 25 mls/hr Vancomycin HCl 1,500 mg/ (Sodium Chloride) 500 mls @ 250 mls/hr IVPB Q24H [facility] Insulin Glargine (Lantus(*)) 80 units SUBCUT QAM [facility] Last Admin: 10/15/17 08:36 Dose: 80 units Insulin Human Lispro (Humalog*) 0 units SUBCUT ACHS [facility] PRN Reason: Protocol Last Admin: 10/15/17 08:37 Dose: 9 unit Insulin Human Regular (Insulin Regular(*)) 15 units SUBCUT TID AC [facility] Last Admin: 10/15/17 08:38 Dose: 15 units Nifedipine (Procardia Xl Tab*) 60 mg PO DAILY [facility] Last Admin: 10/15/17 08:38 Dose: 60 mg Pharmacy Consult (Zosyn Per Pharmacy*) 1 note FOLLOW UP .ZOSYN PER PHARMACY [facility] Pharmacy Consult (Vancomycin Per Pharmacy*) 1 note FOLLOW UP . PRN PRN Reason: PER PROTOCOL Pharmacy Profile Note (Vancomycin Trough Check) 1 note FOLLOW UP 2030 Stop: 10/17/17 20:31 Vital Signs - 8 hr 10/15/17 10/15/17 10/15/17 03:42 04:10 08:00 Temperature 97.8 F Pulse Rate 74 Respiratory 18 20 16 Rate Blood Pressure 138/66 (mmHg) O2 Sat by Pulse 95 Oximetry 10/15/17 08:39 Temperature Pulse Rate Respiratory 16 Rate Blood Pressure (mmHg) O2 Sat by Pulse Oximetry Oxygen Devices in Use Now: None Appearance: 52 yo M in nAD, AAOx3 Eyes: No Scleral Icterus, PERRLA Ears/Nose/Mouth/Throat: NL Teeth, Lips, Gums, Mucous Membranes Moist Neck: NL Appearance and Movements; NL JVP, Trachea Midline Respiratory: Symmetrical Chest Expansion and Respiratory Effort, Clear to Auscultation Cardiovascular: NL Sounds; No Murmurs; No JVD, No Edema Abdominal: NL Sounds; No Tenderness; No Distention, No Hepatosplenomegaly Lymphatic: No Cervical Adenopathy Extremities: No Clubbing, Cyanosis Skin: No Nodules or Sclerosis, - - left foot s/p TMA -stump healed well. R foot , s/p R 1st toe amputation, R 2 nd toe distal phalanx hyperthrophic with a wound covered with eschar , R 5th toe partially necrotic Result Diagrams: 10/15/17 05:02 10/15/17 05:02 Microbiology and Other Data: Microbiology 10/14/17 23:09 Nasal Screen MRSA (PCR)([facility]) - Final Nasal Mrsa Negative Assess/Plan/Problems-Billing Assessment: 52 yo M with h/o DM, CKD stage 4, L TMA, hyperkalemia presents with bleeding R second toe and necrotic 5th toe. - Patient Problems (1) Toe osteomyelitis, right Comment: Acute on chronic process. Ortho consulted. ID will be asked to see pt in AM. cont Zosyn/Vanc. (2) Hyperkalemia Comment: chronic, recurrent. Suspect RTA 4 Tx with Kayexalate monitor (3) CKD (chronic kidney disease) Comment: creat at baseline (4) Hypertension Comment: Adequate control. Continue current regimen (5) COPD (chronic obstructive pulmonary disease) Comment: chronic, no exacerbation (6) Diabetes Comment: Cont Lantus and ISS (7) DVT prophylaxis Comment: HSQ Status and Disposition: inpatient
[2017-10-15] MEDS: NS 0.9% 1000 ML* 1,000 ML IV SCH ×2 (14:45→23:56)
[2017-10-15] MEDS ORDERED: Vancomycin(*) 1,500 MG in NS 0.9% 500 ML* 500 ML IVPB SCH (21:00)
[2017-10-15] MEDS: hydrALAZINE IV* 20 MG/ML VIAL IV SLOW PU PRN (23:55)
--- NOTE | 2017-10-16 00:01 | CONS ---
CONSULTATION REPORT: DATE OF CONSULT: 10/15/17 REASON FOR CONSULTATION: Right foot infection. HISTORY OF PRESENT ILLNESS: The patient is a 52-year-old man, who is on disability, for dyslexia and lower extremity amputations, with diabetes mellitus type 2, and peripheral neuropathy as well as sta ge 3 chronic kidney disease and hypertension, with a history of amputations bilateral feet, who prese nted to [facility] via the emergency department yesterday with a question of a right forefoot infection. The patient states that approximately 1 to 2 months ago, he developed some swelling about the distal tip of the right second toe. He went to [facility] where the right distal toe tip was lanced. The patient reports that fluid, possibly pus, emanated from it. The patient was placed on oral antibiotics. The patient was unsure of exact type of antibiotic and e xactly for how long he was on oral antibiotics. On 10/14/17, the date of admission, the patient noted some blood trailing behind him as he ambulated. He had some difficulty removing his sock and noted that he had a screw in the tip of his second toe . This was removed. He thinks that the screw was from [facility]. Recent discharge summary from [facility] describes an admission from 10/09/17 t o 10/12/17 with the discharge diagnoses of cellulitis and osteomyelitis, right second toe and small t oe. The hospital course describes the patient having presented to [facility] with some swelli ng of the second toe with some area of erythema. The patient was started on broad-spectrum antibioti cs and blood cultures were taken. Orthopedics was consulted. Orthopedics did not feel that the [place] ent was a candidate for amputation and recommended IV antibiotics. A physician from Infectious Disea se was consulted and as well agreed on IV antibiotics rather than amputation. Blood cultures showed no growth. There is no mention of advanced imaging such as MRI. Toe x-rays were read as showing ost eomyelitis of the second toe. It is not mentioned what type of antibiotics the patient was placed on during the admission. The pat ient was to follow up with the infectious disease service as an outpatient regarding antibiotics. We have the actual lab results, blood cultures, that were drawn on 10/09/17 that showed no growth as of 10/14/17, aerobic and anaerobic. We also have access to an Infectious Disease consult note from 08/19. It is noted that the patient had presented to the [facility] ER on 10/09/17 with right lower extrem ity redness and swelling of the right second toe. The patient described some mild redness to that to e for 1-1/2 months. That is consistent with what he described to me today. At some point, his right second toenail fell off without any provocation or injury. He has well described that to me today. The patient used some ointment and then had some purulent drainage from the right second toe and wor sening erythema. According to this ID note, the patient had been treated for right second toe osteomyelitis with 6 wee ks of IV antibiotics by Dr. Martinez in the past. The patient had a white count of 8.1 with 71% neutrophils. CRP of 106. The Infectious Disease docto r commented on the possible lytic area of the distal phalanx of the right second toe concerning for o steomyelitis. The antibiotics prescribed in this consultation note are clindamycin. The note descri bes osteomyelitis of the right second toe with IV antibiotic treatment in [address] Martinez. The Infectious Disease doctor indicated that the patient preferred that his osteomyelitis be treated as an outpatient and so the ID doctor at [facility] recommended followup with Dr. Galarza and [place]. Unclear if the patient was on clindamycin IV or oral during the hospital course, althou gh the ID doctor recommended a 7-day course of oral clindamycin at discharge. That ID physician was Dr. Dykes. The patient does not know how long the small toe, right has had a blackened appearance but he states that the right second toe symptoms have been present for 1 to 2 months. A search of the patient's re cent medical treatment by Dr. Martinez demonstrates his involvement with the patient's left foot infe ction. The patient underwent by Dr. Robert Galarza, one of my partners, on 01/23/17, just under 9 mo nths ago, a left Lisfranc disarticulation and Achilles tendon release. The patient has been very happy with the left foot surgery and Dr. Martinez and Dr. Galarza's care. The patient denies fever, sweats, chills. He denies any other joint pain. The patient describes bas jason decreased sensation of feet. PAST MEDICAL HISTORY: Diabetes type 2, hypertension, hyperlipidemia, peripheral vascular disease, de pression, chronic kidney disease stage 3, diabetic neuropathy, chronic anemia. PAST SURGICAL HISTORY: Left Lisfranc amputation and Achilles tendon release, right first toe amputat ion, bilateral LASIK surgery. MEDICATIONS: 1. Toujeo. 2. Novolin. 3. Breo Ellipta. 4. Lisinopril. 5. Nifedipine. 6. Albuterol p.r.n. 7. Hydrochlorothiazide. ALLERGIES: BACTRIM, CODEINE. SOCIAL HISTORY: Nonsmoker. Nondrinker. Does not use recreational drugs. Disabled as mentioned abov e secondary to dyslexia and lower extremity disability. The patient is , without children. REVIEW OF SYSTEMS: The patient has no fever, sweats, chills. No current chest pain, shortness of br eath, or heart palpitations. No other current complaints of pain. The patient states that right negra t does not hurt. He is more concerned about its appearance and possible infection. PHYSICAL EXAM: Vital Signs: From 1115 on 10/15/17, temperature 97.5 degrees Fahrenheit oral, heart rate 75, blood pressure 153/87, respiratory rate 20, O2 saturation 97% on room air. No acute distress, alert and oriented, appropriate mood and affect, appropriate dress and hygiene, we ll coordinated bilateral upper and lower extremities. The patient is lying down in his bed in his ho spital room watching a football game. I did not ask the patient to ambulate. Bilateral lower extremities have sensation at the level of the lower legs. Sensation is reduced, but present at the level of the ankles and heel. The patient describes no sensation to light touch at th e level of his feet, mid and forefeet. Left foot exam shows a surgical incision scar, it is clean dry and intact. No fluctuance, erythema, or soft tissue swelling. Excellent healing of wound. Right foot exam reveals a small toe with black eschar about the lateral aspect of the small toe at th e level of the phalanges. This is a dry eschar. With manipulation of the toe, there is no purulence . No fluctuance appreciated. No surrounding skin erythema. The patient initially had much blood overlying much of the forefoot and toes. I cleaned the patient' s toes with a ChloraPrep and then with a wet sterile gauze. This revealed that the third and fourth t oes had skin intact. No fluctuance, no erythema, no skin defects. Second toe has flexion contracture, worst at the DIP joint. No skin plate appreciated. The patient has some much dryness about the skin. Some minimal skin defect, about the former location of the doroteo l plate distally. I manipulated this region. There was no drainage. No fluctuance palpated. No si gnificant erythema currently present about the second toe. The right great toe amputation incision scar is clean, dry, and intact. No fluctuance or erythema or skin defect about the forefoot or the midfoot, right. LABORATORY VALUES: White blood cell count 5.7 today. Neutrophil count 69.4%. No ESR or CRP obtaine d to this point. Potassium of 5.2 and creatinine of 3.49 today with a glucoses running in the 208 to 255 range over the last 24 hours with most recent being 82 fingerstick glucose. Hemoglobin A1c of 8 .7. IMAGING: X-rays of the right foot, 3 views, obtained yesterday, 10/14/17, were reviewed by me. Thes e x-rays are notable for a prior great toe amputation at the mid metatarsal level. There are hypertr ophic changes, potentially accommodative of the second metatarsal shaft and head. Question of nichole pack about the head of the the second metatarsal. Lateral x-ray view shows nearly complete lysis, non- visibility, of the distal phalanx of the second toe. As well, there appears to be decreased bone den sity in the small toe distal phalanx. No fracture visible. ASSESSMENT: 1. Recent cellulitis with possible prior abscess of the right small toe. 2. Possible osteomyelitis, right second toe distal phalanx. 3. Dry eschar, right fifth toe, small toe. 4. Status post right great toe amputation at the level of the mid first metatarsal when the patient was a teenager. 5. Status post recent left Lisfranc amputation and Achilles tendon lengthening by Dr. Galarza, 2017, for osteomyelitis. 6. Diabetes mellitus type 2 with peripheral neuropathy. PLAN: 1. The patient does not seem to know of any advanced imaging he has obtained. None was alluded to in the [place] discharge summary. I would recommend an MRI to attempt to delineate the bony involveme nt of the infection of the right foot. 2. MRI right foot to assess for the location and extent of osteomyelitis. 3. The patient on exam today does not clearly have an aggressive infection. His small toe has dry e schar. His second toe has no significant erythema, has no significant drainage, no purulence appreci ated. Certainly, extra images are concerning, however, for osteomyelitis and by report of patient in [facility] staff, the patient did recently have cellulitis and possibly an inf ected fluid collection at the distal tip of the right small toe. 4. Continue IV antibiotics. Recommend consultation with Dr. Martinez tomorrow regarding an antibiot ic selection. 5. Recommend dry sterile dressing apply to the right foot, change once daily. 6. I will discuss the patient with Dr. Galarza. The patient is quite fond of Dr. Galarza. Dr. aGlarza , Dr. Martinez, and the patient can determine if they [facility] 7. I recommend some inflammatory labs as a baseline to possibly follow the patient's treatment succe ss. I can order these in the computer now. [id number]/[facility] #: [id number]
[2017-10-16] MEDS ORDERED: Gabapentin CAP(*) 100 MG PO ONE (00:31)
[2017-10-16] MEDS: ZOSYN 3.375 GM Q8H per EXTENDED INFUSION IVPB SCH ×6 (05:06→20:04)
[2017-10-16] MEDS: Heparin VIAL(*) 5000 UNITS/ML VIAL (FIVE THOUSAND) SUBCUT SCH (05:08)
[2017-10-16 05:20] LABS: Hematocrit 26 % (42-52); Hemoglobin 8.6 g/dl (14.0-18.0); Mean Corpuscular HGB Conc 33 g/dl (31-36); Mean Corpuscular Hemoglobin 28 pg (27-31); Mean Corpuscular Volume 85 fL (80-94); Mean Platelet Volume 8 um3 (7.4-10.4); Platelet Count 202 10^3/ul (150-450); Red Blood Count 3.07 10^6/ul (4.0-5.4); Red Cell Distribution Width 15 % (10.5-15); White Blood Count 4.7 10^3/ul (3.5-10.8)
[2017-10-16 05:29] LABS: EGFR Non-African American 20.8 (>60)
[2017-10-16] MEDS ORDERED: Vancomycin Random Level* NOTE FOLLOW UP ONE (06:00)
[2017-10-16] MEDS: Gabapentin CAP(*) 300 MG PO SCH ×3 (07:55→21:53)
[2017-10-16] MEDS: NIFEdipine ER TAB* 30 MG PO SCH (07:55)
[2017-10-16] MEDS: Insulin REGULAR(*) 1 UNITS UNIT SUBCUT SCH ×2 (07:56→12:52)
[2017-10-16] MEDS: Insulin GLARGINE(*) 1 UNITS UNIT SUBCUT SCH (07:57)
[2017-10-16] MEDS: Insulin LISPRO* 1 UNITS UNIT SUBCUT SCH ×4 (07:57→20:13)
[2017-10-16] MEDS: hydrALAZINE IV* 20 MG/ML VIAL IV SLOW PU PRN ×2 (08:30→20:04)
[2017-10-16] MEDS ORDERED: Vancomycin(*) 1,500 MG in NS 0.9% 500 ML* 500 ML IVPB ONE (11:00)
[2017-10-16] MEDS: Furosemide TAB* 20 MG PO SCH (11:12)
--- NOTE | 2017-10-16 14:32 | PN ---
Subjective Date of Service: 10/16/17 Interval History: pt feels well, awaiting surgery Objective Active Medications: Albuterol (Ventolin 2.5 Mg/3 Ml Neb.Sabrina*) 2.5 mg INH Q4H PRN PRN Reason: SOB/WHEEZING Dextrose (D50w Syringe 50 Ml*) 12.5 gm IV PUSH .FOR FS < 60 - SS PRN PRN Reason: FS < 60 Furosemide (Lasix Tab*) 60 mg PO QAM [facility] Last Admin: 10/16/17 11:12 Dose: 60 mg Gabapentin (Neurontin Cap(*)) 300 mg PO TID [facility] Last Admin: 10/16/17 07:55 Dose: 300 mg Hydralazine HCl (Apresoline Iv*) 5 mg IV SLOW PU Q6H PRN PRN Reason: SBP>170 Last Admin: 10/16/17 08:30 Dose: 5 mg Sodium Chloride (Ns 0.9% 1000 Ml*) 1,000 mls @ 100 mls/hr IV PER RATE [facility] Last Admin: 10/15/17 23:56 Dose: 100 mls/hr Piperacillin Sod/Tazobactam (Sod 3.375 gm/ Sodium Chloride) 100 mls @ 25 mls/ hr IVPB Q8H [facility] Last Admin: 10/16/17 12:50 Dose: 25 mls/hr Insulin Glargine (Lantus(*)) 80 units SUBCUT QAM [facility] Last Admin: 10/16/17 07:57 Dose: 80 units Insulin Human Lispro (Humalog*) 0 units SUBCUT ACHS [facility] PRN Reason: Protocol Last Admin: 10/16/17 12:56 Dose: 6 unit Nifedipine (Procardia Xl Tab*) 60 mg PO DAILY [facility] Last Admin: 10/16/17 07:55 Dose: 60 mg Pharmacy Consult (Zosyn Per Pharmacy*) 1 note FOLLOW UP .ZOSYN PER PHARMACY [facility] Pharmacy Consult (Vancomycin Random Level*) 1 note FOLLOW UP 0600 ONE Stop: 10/17/17 06:01 Vital Signs - 8 hr 10/16/17 10/16/17 10/16/17 07:30 07:55 08:00 Temperature 98.0 F Pulse Rate 73 Respiratory 16 16 16 Rate Blood Pressure 176/101 (mmHg) O2 Sat by Pulse 100 Oximetry 10/16/17 10/16/17 10:10 11:24 Temperature Pulse Rate 71 Respiratory 16 16 Rate Blood Pressure 136/70 (mmHg) O2 Sat by Pulse 96 Oximetry Oxygen Devices in Use Now: None Appearance: 52 yo F in nAD, AAOx3 Eyes: No Scleral Icterus, PERRLA Ears/Nose/Mouth/Throat: NL Teeth, Lips, Gums, Mucous Membranes Moist Neck: NL Appearance and Movements; NL JVP, Trachea Midline Respiratory: Symmetrical Chest Expansion and Respiratory Effort, Clear to Auscultation Cardiovascular: NL Sounds; No Murmurs; No JVD, RRR Abdominal: NL Sounds; No Tenderness; No Distention, No Hepatosplenomegaly Lymphatic: No Cervical Adenopathy Extremities: No Clubbing, Cyanosis, - - L TMA -stump healed, T foot s/p great toe amputation, 2 nd toe hyperthrophic, with ulcer on botom, 5 th toe necrotic Skin: No Nodules or Sclerosis, - - see above Neurological: Alert and Oriented x 3, NL Muscle Strength and Tone Result Diagrams: 10/16/17 04:57 10/16/17 04:57 Microbiology and Other Data: Microbiology 10/14/17 23:09 Nasal Screen MRSA (PCR)([place]) - Final Nasal Mrsa Negative Assess/Plan/Problems-Billing Assessment: 52 yo M with h/o DM, CKD stage 4, L TMA, hyperkalemia presents with bleeding R second toe and necrotic 5th toe. - Patient Problems (1) Toe osteomyelitis, right Comment: Acute on chronic process. Ortho consulted.To OR tonight. Pt has a good exercise tolerance, had a stress test in 12/2016 (low risk), he is an acceptable candidate for the anticipated surgery. Appreciate ID's assistance, cont Zosyn,d/c Vanc (2) Hyperkalemia Comment: chronic, recurrent. Suspect RTA 4 Tx with Kayexalate- resolved, cont to monitor, no ACEI in the future (3) CKD (chronic kidney disease) Comment: creat at baseline (4) Hypertension Comment: HTN this aM- got upset that he was NPO, now better controlled. Continue current regimen (5) COPD (chronic obstructive pulmonary disease) Comment: chronic, no exacerbation (6) Diabetes Comment: Cont Lantus and ISS (7) DVT prophylaxis Comment: HSQ Status and Disposition: inpatient
[2017-10-16] MEDS ORDERED: Midazolam* 1 MG/ML 2 ML VIAL (2 MG) ONE ×2 (15:15→15:45)
[2017-10-16] MEDS ORDERED: fentaNYL* 50 MCG/ML 2 ML VIAL (100 MCG VIAL) ONE (15:15)
--- NOTE | 2017-10-16 15:22 | RAD ---
Indication: Wound on RIGHT foot at the second and fifth toes. Assess for osteomyelitis. Previous RIGHT great toe amputation. Comparison: October 14, 2017 radiographs. Technique: [employer] 1.5 Shereen OE310O with GEM suite. Noncontrast MRI RIGHT foot with incomplete inclusion of the hindfoot in the pxilo-ou-yrhm. Report: Post amputation of the great toe at the level of mid diaphysis of the metatarsal. Chronic callus/hypertrophic bone formation at the second metatarsal from the mid diaphysis through the head. Increased T2 signal at the second distal phalanx and at the congenitally fused fifth middle and distal phalanges. Corresponding loss of normal T1 marrow hyperintensity in the same distribution. Diffuse soft tissue edema involving both the subcutaneous tissue plane and the intrinsic skeletal musculature without evidence for a loculated soft tissue plane abscess collection. 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 IMPRESSION: The constellation of findings given the clinical context is consistent with diffuse cellulitis and osteomyelitis involving the second distal phalanx and the fifth congenitally fused middle and distal phalanges corresponding with the regions of clinical concern.
[2017-10-16] MEDS ORDERED: Lidocaine 2% PF* 10 ML AMP ONE (15:23)
[2017-10-16] MEDS ORDERED: Morphine INJ* 2 MG/ML 1 ML SYRINGE (TWO MG - NEW SYRINGE VERSION) IV PRN (18:49)
--- NOTE | 2017-10-16 20:21 | CONS ---
CONSULTATION REPORT: DATE OF CONSULT: 10/16/17 REQUESTING PHYSICIAN: Dr. Tobias. CONSULTING SERVICE: Infectious Disease. REASON FOR CONSULTATION: Right foot infection. IMPRESSION: 1. Diabetic neuropathy; vascular disease; recent right foot cellulitis, treated at [facility]. He has got an eschar on his fifth toe. He has got a second toe with a hammertoe deformity and distortion of toe anatomy, an eschar and a small wound there. His first toe was surgically absent. There is cellulitis in the toes. There is chronic osteomyelitis of the second toe. 2. Diabetes with neuropathy. 3. Peripheral vascular disease. 4. Chronic kidney disease. RECOMMENDATIONS: 1. Continue Zosyn. We will stop the vancomycin. Get a hold on the culture information from [facility]. 2. Agree with Orthopedic's evaluation for transmetatarsal amputation. HISTORY OF PRESENT ILLNESS: This is a 52-year-old diabetic with a history of foot infections, admitted with a foot infection. He had been at [facility] earlier in the month for right foot and ankle cellulitis, given IV antibiotics, told he had osteomyelitis, offered surgery. He apparently did not want at that time and because of his relationship with Dr. Galarza in respect for his work preferred to have him do it. He then went home and stepped on a screw, which went through his second toe. He pulled that out, came to the hospital here on the . The toe was more red and swollen more and more than its baseline hammertoe deformity. He was started on IV antibiotics here which he has tolerated well. Denies any pain. His sed rate was 120. His C-reactive protein was 60 on admission, it is down to 26 today. His creatinine is 3, unchanged. Blood cultures sent are pending. He does not leave any of the culture results of the blood from [facility] positive. PAST MEDICAL HISTORY: 1. Type 2 diabetes. 2. Peripheral neuropathy. 3. Hypertension. 4. Hyperlipidemia. 5. Peripheral vascular disease. 6. Depression. 7. Stage 3 chronic kidney disease. 8. Anemia. 9. Status post left transmetatarsal amputation. 10. Status post right great toe amputation. 11. Status post bilateral LASIK surgery. MEDICATIONS: 1. Albuterol. 2. Gabapentin. 3. Hydralazine. 4. Insulin glargine. 5. Nifedipine. 6. Zosyn 3.375 g IV every 8 hours by extended infusion. 7. Vancomycin. ALLERGIES: BACTRIM and CODEINE. FAMILY HISTORY: No recurrent infections. SOCIAL HISTORY: He lives in [place]. He has no travel or sick contacts. REVIEW OF SYSTEMS: A 14-point review of systems was negative except as noted above. PHYSICAL EXAM: Vital Signs: Temperature 36.7, heart rate 70, respiratory rate 16, blood pressure 136/70, oxygen saturation 96% on room air. In general, he is awake, not in distress. Neurologic: He is oriented x3. Follows all commands. HEENT: There is no conjunctival hemorrhage. Oropharynx without lesions. Neck is supple. Lymph Nodes: There is no inguinal, axillary, or epitrochlear lymphadenopathy. Heart is regular rate and rhythm without murmurs, rubs, or gallops. Lungs: Clear to auscultation bilaterally. Abdomen: Soft, nontender , nondistended. There are bowel sounds present. Skin: There is no rash or splinter hemorrhages. Musculoskeletal: Left foot, there is a well-healed transmetatarsal amputation. Scar that is on the right foot, the great toe is surgically absent. On the second toe, there is a hammertoe deformity and diffuse edema, distortion of the toe with some erythema and eschar at the tip. The right fifth lateral toe, there is a centimeter size eschar without crepitus or fluctuance. DIAGNOSTIC STUDIES/LAB DATA: Creatinine is 3, potassium 5. CRP 26. Please see impressions and recommendations outlined above, which I have discussed with Dr. Tobias. Thank you for asking me to see Mr. Galo in consultation. [id number]/[facility] #: [id number] KEDAR
[2017-10-17] MEDS: ZOSYN 3.375 GM Q8H per EXTENDED INFUSION IVPB SCH ×4 (04:11→11:34)
[2017-10-17 04:59] LABS: Hematocrit 27 % (42-52); Hemoglobin 8.9 g/dl (14.0-18.0); Mean Corpuscular HGB Conc 33 g/dl (31-36); Mean Corpuscular Hemoglobin 28 pg (27-31); Mean Corpuscular Volume 86 fL (80-94); Mean Platelet Volume 8 um3 (7.4-10.4); Platelet Count 223 10^3/ul (150-450); Red Blood Count 3.15 10^6/ul (4.0-5.4); Red Cell Distribution Width 15 % (10.5-15); White Blood Count 5.4 10^3/ul (3.5-10.8)
[2017-10-17 05:15] LABS: EGFR Non-African American 21.7 (>60)
[2017-10-17] MEDS ORDERED: Vancomycin Random Level* NOTE FOLLOW UP ONE (06:00)
[2017-10-17] MEDS: Gabapentin CAP(*) 300 MG PO SCH ×3 (08:30→23:03)
[2017-10-17] MEDS: Insulin GLARGINE(*) 1 UNITS UNIT SUBCUT SCH (08:30)
[2017-10-17] MEDS: Insulin LISPRO* 1 UNITS UNIT SUBCUT SCH ×4 (08:30→22:53)
[2017-10-17] MEDS: Furosemide TAB* 20 MG PO SCH (08:30)
[2017-10-17] MEDS: NIFEdipine ER TAB* 30 MG PO SCH (08:30)
[2017-10-17] MEDS: NS 0.9% 1000 ML* 1,000 ML IV SCH (09:12)
--- NOTE | 2017-10-17 10:28 | PN ---
Progress Note - Progress Note Date of Service: 10/17/17 SOAP: Subjective: []Patient seen at bedside. He feels well, confirms throbbing but no pain of RLE. Denies fever, chills, CP, SOB, nausea. Objective: []General: Patient seen at bedside RLE: Dressing CDI. No erythema proximally. Left calf nontender, nonerythematous, nonedematous Vital Signs Temp 98.4 F 10/17/17 07:57 Pulse 80 10/17/17 07:57 Resp 14 10/17/17 08:30 BP 131/73 10/17/17 07:57 Pulse Ox 98 10/17/17 07:57 Intake & Output 10/16/17 10/17/17 10/17/17 18:59 06:59 18:59 Intake Total 2552 440 2113 Output Total 1350 500 950 Balance 1202 -60 1163 Weight 350 lb 4.8 oz Intake: IV Fluids 1273 1763 ABX - ZOSYN 227 LR 200 NS (0.9%) 1073 1536 IVPB 489 ABX - VANCOMYCIN 370 ABX - ZOSYN 119 Oral 790 440 350 Output: Urine 1350 500 950 Other: Estimated Void Medium # Bowel Movements 0 # Voids 1 Laboratory Last Values WBC 5.4 10^3/ul (3.5-10.8) 10/17/17 04:20 RBC 3.15 10^6/ul (4.0-5.4) L 10/17/17 04:20 Hgb 8.9 g/dl (14.0-18.0) L 10/17/17 04:20 Hct 27 % (42-52) L 10/17/17 04:20 MCV 86 fL (80-94) 10/17/17 04:20 MCH 28 pg (27-31) 10/17/17 04:20 MCHC 33 g/dl (31-36) 10/17/17 04:20 RDW 15 % (10.5-15) 10/17/17 04:20 Plt Count 223 10^3/ul (150-450) 10/17/17 04:20 MPV 8 um3 (7.4-10.4) 10/17/17 04:20 Neut % (Auto) 69.4 % (38-83) 10/15/17 05:02 Lymph % (Auto) 18.6 % (25-47) L 10/15/17 05:02 [place]ax % (Auto) 8.4 % (1-9) 10/15/17 05:02 Eos % (Auto) 2.3 % (0-6) 10/15/17 05:02 Baso % (Auto) 1.3 % (0-2) 10/15/17 05:02 Absolute Neuts (auto) 3.9 10^3/ul (1.5-7.7) 10/15/17 05:02 Absolute Lymphs (auto) 1.1 10^3/ul (1.0-4.8) 10/15/17 05:02 Absolute Monos (auto) 0.5 10^3/ul (0-0.8) 10/15/17 05:02 Absolute Eos (auto) 0.1 10^3/ul (0-0.6) 10/15/17 05:02 Absolute Basos (auto) 0.1 10^3/ul (0-0.2) 10/15/17 05:02 Absolute Nucleated RBC 0 10^3/ul 10/15/17 05:02 Nucleated RBC % 0 10/15/17 05:02 ESR 120 mm/Hr (0-20) H 10/16/17 04:57 Sodium 133 mmol/L (133-145) 10/17/17 04:20 Potassium 4.9 mmol/L (3.5-5.0) 10/17/17 04:20 Chloride 106 mmol/L (101-111) 10/17/17 04:20 Carbon Dioxide 20 mmol/L (22-32) L 10/17/17 04:20 Anion Gap 7 mmol/L (2-11) 10/17/17 04:20 BUN 41 mg/dL (6-24) H 10/17/17 04:20 Creatinine 3.07 mg/dL (0.67-1.17) H 10/17/17 04:20 Est GFR ( Amer) 27.9 (>60) 10/17/17 04:20 Est GFR (Non-Af Amer) 21.7 (>60) 10/17/17 04:20 BUN/Creatinine Ratio 13.4 (8-20) 10/17/17 04:20 Glucose 211 mg/dL (70-100) H 10/17/17 04:20 POC Glucose (mg/dL) 147 mg/dL (70-100) H 10/17/17 07:37 Hemoglobin A1c 8.7 % (4.0-5.6) H 10/14/17 19:09 Lactic Acid 0.7 mmol/L (0.5-2.0) 10/14/17 19:09 Calcium 8.2 mg/dL (8.6-10.3) L 10/17/17 04:20 Total Bilirubin 0.30 mg/dL (0.2-1.0) 10/14/17 19:09 AST 13 U/L (13-39) 10/14/17 19:09 ALT 11 U/L (7-52) 10/14/17 19:09 Alkaline Phosphatase 88 U/L (34-104) 10/14/17 19:09 Troponin I 0.02 ng/mL (<0.04) 10/15/17 05:02 C-Reactive Protein 26.51 mg/L (< 5.00) H 10/16/17 04:57 Total Protein 6.5 g/dL (6.4-8.9) 10/14/17 19:09 Albumin 2.8 g/dL (3.2-5.2) L 10/14/17 19:09 Globulin 3.7 g/dL (2-4) 10/14/17 19:09 Albumin/Globulin Ratio 0.8 (1-3) L 10/14/17 19:09 Random Vancomycin 20.5 mcg/mL 10/17/17 04:20 Assessment: []POD 1 s/p right toe 2-5 amputation Plan: []NWB RLE PT/OT OOB with crutches, with assistance abd per ID: Saray
--- NOTE | 2017-10-17 13:42 | OP ---
DATE OF OPERATION: 10/16/17 - ROOM #435 DATE OF : 69 SURGEON: Robert Galarza MD EMERY WHEEL WORKER: Anabela Morales PA-C ANESTHESIOLOGIST: Gaurav Hernandez MD ANESTHESIA: MAC PRE-OP DIAGNOSES: Previous right first metatarsophalangeal joint disarticulation, current second and fifth toe necrosis with diabetic neuropathy. POST-OP DIAGNOSES: Previous right first metatarsophalangeal joint disarticulation, current second and fifth toe necrosis with diabetic neuropathy. OPERATIVE PROCEDURE: Disarticulation, right 2, 3, 4, and 5 toes. DESCRIPTION OF PROCEDURE: The patient was taken to the operating room where ankle Esmarch was inflated. We made a transverse elliptical incision right at the base of the toes distal to the metatarsal heads. We disarticulated 2, 3, 4 , and 5 through the MTP joints where all 4 toes sent as 1 specimen. Deep cultures were taken. We irrigated thoroughly and controlled local hemostasis. We were able to close dorsal plantar flaps with interrupted 2-0 Vicryl sutures and 2-0 Prolene for interrupted skin sutures. A compression dressing was then applied. [id number]/[facility] #: [id number] [facility]
--- NOTE | 2017-10-17 13:53 | PN ---
Subjective Date of Service: 10/17/17 Interval History: Pt feels well. morphine felt to sedating for pt , but he had a good night's sleep. started on gabapentin for phantom pain Objective Active Medications: Albuterol (Ventolin 2.5 Mg/3 Ml Neb.Sabrina*) 2.5 mg INH Q4H PRN PRN Reason: SOB/WHEEZING Dextrose (D50w Syringe 50 Ml*) 12.5 gm IV PUSH .FOR FS < 60 - SS PRN PRN Reason: FS < 60 Furosemide (Lasix Tab*) 60 mg PO QAM [facility] Last Admin: 10/17/17 08:30 Dose: 60 mg Gabapentin (Neurontin Cap(*)) 300 mg PO TID [facility] Last Admin: 10/17/17 13:43 Dose: 300 mg Hydralazine HCl (Apresoline Iv*) 5 mg IV SLOW PU Q6H PRN PRN Reason: SBP>170 Last Admin: 10/16/17 20:04 Dose: 5 mg Sodium Chloride (Ns 0.9% 1000 Ml*) 1,000 mls @ 100 mls/hr IV PER RATE [facility] Last Admin: 10/17/17 09:12 Dose: 100 mls/hr Piperacillin Sod/Tazobactam (Sod 3.375 gm/ Sodium Chloride) 100 mls @ 25 mls/ hr IVPB Q8H [facility] Last Admin: 10/17/17 11:34 Dose: 25 mls/hr Insulin Glargine (Lantus(*)) 80 units SUBCUT QAM [facility] Last Admin: 10/17/17 08:30 Dose: 80 units Insulin Human Lispro (Humalog*) 0 units SUBCUT ACHS [facility] PRN Reason: Protocol Last Admin: 10/17/17 12:03 Dose: 2 unit Nifedipine (Procardia Xl Tab*) 60 mg PO DAILY [facility] Last Admin: 10/17/17 08:30 Dose: 60 mg Oxycodone/Acetaminophen (Percocet 5/325 Tab*) 1 tab PO Q4H PRN PRN Reason: PAIN Pharmacy Consult (Zosyn Per Pharmacy*) 1 note FOLLOW UP .ZOSYN PER PHARMACY [facility] Vital Signs - 8 hr 10/17/17 10/17/17 10/17/17 07:36 07:57 08:30 Temperature 98.4 F Pulse Rate 80 Respiratory 14 18 14 Rate Blood Pressure 131/73 (mmHg) O2 Sat by Pulse 98 Oximetry 10/17/17 10/17/17 10/17/17 11:26 11:46 13:43 Temperature 97.4 F Pulse Rate 78 Respiratory 16 18 18 Rate Blood Pressure 154/79 (mmHg) O2 Sat by Pulse 98 Oximetry Oxygen Devices in Use Now: None Appearance: 52 yo f in nAd, aAOx3 Eyes: No Scleral Icterus, PERRLA Ears/Nose/Mouth/Throat: NL Teeth, Lips, Gums, Mucous Membranes Moist Neck: NL Appearance and Movements; NL JVP, Trachea Midline Respiratory: Symmetrical Chest Expansion and Respiratory Effort, Clear to Auscultation Cardiovascular: NL Sounds; No Murmurs; No JVD, RRR Abdominal: NL Sounds; No Tenderness; No Distention, No Hepatosplenomegaly Lymphatic: No Cervical Adenopathy Extremities: - - r leg in post op splint and dressings that were not removed Skin: No Rash or Ulcers, No Nodules or Sclerosis, - - s/p remote L TMA with stump intact Neurological: Alert and Oriented x 3, NL Muscle Strength and Tone Result Diagrams: 10/17/17 04:20 10/17/17 04:20 Microbiology and Other Data: Microbiology 10/14/17 23:09 Nasal Screen MRSA (PCR)([facility]) - Final Nasal Mrsa Negative Assess/Plan/Problems-Billing Assessment: 52 yo M with h/o DM, CKD stage 4, L TMA, hyperkalemia presents with bleeding R second toe and necrotic 5th toe. - Patient Problems (1) Toe osteomyelitis, right Comment: Acute on chronic process. S/p R midfoot amputation by Dr. Galarza on 10/16/17, doing well Appreciate ID's assistance, cont Zosyn,d/c Vanc PT/OT eval for possible going home vs STR/PMRU (2) Hyperkalemia Comment: chronic, recurrent. Suspect RTA 4 Tx with Kayexalate- resolved (3) CKD (chronic kidney disease) Comment: creat at baseline (4) Hypertension Comment: HTN controlled. Continue current regimen (5) COPD (chronic obstructive pulmonary disease) Comment: chronic, no exacerbation (6) Diabetes Comment: Cont Lantus and ISS (7) DVT prophylaxis Comment: HSQ (8) Normocytic anemia Comment: chronic , suspect due to CKD, at baseline Status and Disposition: inpatient
[2017-10-17] MEDS: oxyCODONE/Acetamin 5/325 MG* TAB PO PRN ×2 (14:17→23:13)
[2017-10-17] MEDS: Heparin VIAL(*) 5000 UNITS/ML VIAL (FIVE THOUSAND) SUBCUT SCH ×2 (14:18→23:05)
--- NOTE | 2017-10-17 14:45 | PN ---
Progress Note - Progress Note Date of Service: 10/17/17 SOAP: Subjective: CC: foot infection HPI: 52 yr old man with hx right great toe amp; right foot 2nd toe eschar, cellulitis, had remainder of toes disarticulated. Tolerated it well, no fever, rash, or diarrhea. Objective: Vital Signs Temp 36.3 C 10/17/17 11:46 Pulse 78 10/17/17 11:46 Resp 18 10/17/17 14:17 BP 154/79 10/17/17 11:46 Pulse Ox 98 10/17/17 11:46 Intake & Output 10/16/17 10/17/17 10/17/17 18:59 06:59 18:59 Intake Total 2552 440 3374 Output Total 6230 903 9459 Balance 1202 -60 1024 Weight 350 lb 4.8 oz Intake: IV Fluids 1273 2024 ABX - ZOSYN 227 LR 200 NS (0.9%) 1073 1797 IVPB 489 ABX - VANCOMYCIN 370 ABX - ZOSYN 119 Oral 642 291 9992 Output: Urine 0209 871 3438 Other: Estimated Void Medium # Bowel Movements 0 Estimated Stool Amount Medium # Voids 1 Gen:awake, comfortable HEENT:no thrush CV: RRR Lungs:CTA BL Abd:+BS NT ND soft Skin: no rash MSK: R foot casted Laboratory Results - last 24 hr 10/16/17 10/16/17 10/16/17 15:16 17:24 20:03 WBC RBC Hgb Hct MCV MCH MCHC RDW Plt Count MPV Sodium Potassium Chloride Carbon Dioxide Anion Gap BUN Creatinine Est GFR ( Amer) Est GFR (Non-Af Amer) BUN/Creatinine Ratio Glucose POC Glucose (mg/dL) 80 67 L 99 Calcium Random Vancomycin 10/17/17 10/17/17 10/17/17 00:00 04:12 04:20 WBC 5.4 RBC 3.15 L Hgb 8.9 L Hct 27 L MCV 86 MCH 28 MCHC 33 RDW 15 Plt Count 223 MPV 8 Sodium Potassium Chloride Carbon Dioxide Anion Gap BUN Creatinine Est GFR ( Amer) Est GFR (Non-Af Amer) BUN/Creatinine Ratio Glucose POC Glucose (mg/dL) 95 209 H Calcium Random Vancomycin 10/17/17 10/17/17 10/17/17 04:20 07:37 11:36 WBC RBC Hgb Hct MCV MCH MCHC RDW Plt Count MPV Sodium 133 Potassium 4.9 Chloride 106 Carbon Dioxide 20 L Anion Gap 7 BUN 41 H Creatinine 3.07 H Est GFR ( Amer) 27.9 Est GFR (Non-Af Amer) 21.7 BUN/Creatinine Ratio 13.4 Glucose 211 H POC Glucose (mg/dL) 147 H 142 H Calcium 8.2 L Random Vancomycin 20.5 Microbiology 10/16/17 18:00 Anaerobic Culture - Preliminary Wound No Growth Day 1 10/16/17 18:00 Skin and Soft Tissue MRSA/MSSA (PCR - Final Foot Right Mrsa Negative S.aureus Positive Gram Stain - Final Wound Culture - Preliminary No Growth Day 1 Assessment: 1. Left 2nd toe chronic osteomyelitis s/p 2-5 toe disarticulation; due to MSSA 2. diabetes with neuropathy 3. CKD stage 3 4. morbid obesity 5. sulfa allergy Plan: 1. change zosyn to ancef; PMRU referral. Will plan on change to PO abx for discharge given extensive surgical procedure.
[2017-10-17] MEDS: ceFAZolin 2 GM PREMIX (*) 2 GM/50 ML BAG IVPB SCH ×2 (16:19→23:14)
[2017-10-18] MEDS: Heparin VIAL(*) 5000 UNITS/ML VIAL (FIVE THOUSAND) SUBCUT SCH ×3 (05:13→22:45)
[2017-10-18] MEDS: ceFAZolin 2 GM PREMIX (*) 2 GM/50 ML BAG IVPB SCH ×3 (07:19→22:53)
[2017-10-18 08:06] LABS: Hematocrit 25 % (42-52); Hemoglobin 8.2 g/dl (14.0-18.0); Mean Corpuscular HGB Conc 33 g/dl (31-36); Mean Corpuscular Hemoglobin 28 pg (27-31); Mean Corpuscular Volume 85 fL (80-94); Mean Platelet Volume 8 um3 (7.4-10.4); Platelet Count 194 10^3/ul (150-450); Red Blood Count 2.91 10^6/ul (4.0-5.4); Red Cell Distribution Width 15 % (10.5-15); White Blood Count 4.4 10^3/ul (3.5-10.8)
[2017-10-18 08:25] LABS: EGFR Non-African American 20.8 (>60)
[2017-10-18] MEDS: Furosemide TAB* 20 MG PO SCH (08:43)
[2017-10-18] MEDS: oxyCODONE/Acetamin 5/325 MG* TAB PO PRN ×2 (08:43→18:06)
[2017-10-18] MEDS: Gabapentin CAP(*) 300 MG PO SCH ×3 (08:43→22:39)
[2017-10-18] MEDS: NIFEdipine ER TAB* 30 MG PO SCH (08:43)
[2017-10-18] MEDS: Insulin GLARGINE(*) 1 UNITS UNIT SUBCUT SCH (08:44)
[2017-10-18] MEDS: Insulin LISPRO* 1 UNITS UNIT SUBCUT SCH ×4 (08:44→22:44)
--- NOTE | 2017-10-18 08:55 | PN ---
Progress Note - Progress Note Date of Service: 10/18/17 SOAP: Subjective: []Patient seen at bedside. He denies RLE pain, dizziness, fever, chills, SOB, CP. Objective: []General: Patient seen at bedside RLE: Dressing CDI. No erythema proximally. Left calf nontender, nonerythematous, nonedematous Vital Signs Temp 98.1 F 10/18/17 11:14 Pulse 77 10/18/17 11:14 Resp 18 10/18/17 13:11 BP 161/78 10/18/17 11:14 Pulse Ox 97 10/18/17 11:14 Intake & Output 10/17/17 10/18/17 10/18/17 18:59 06:59 18:59 Intake Total 3574 970 1810 Output Total 2900 1900 2450 Balance 674 -930 -640 Intake: IV Fluids 2054 30 90 ABX - CEFAZOLIN 30 30 60 ABX - ZOSYN 227 NS (0.9%) 1797 30 IVPB 170 60 ABX - CEFAZOLIN 58 60 ABX - ZOSYN 112 Oral 9541 002 6501 Output: Urine 2900 1900 2450 Other: # Bowel Movements 0 0 Estimated Stool Amount Medium Laboratory Last Values WBC 4.4 10^3/ul (3.5-10.8) 10/18/17 07:29 RBC 2.91 10^6/ul (4.0-5.4) L 10/18/17 07:29 Hgb 8.2 g/dl (14.0-18.0) L 10/18/17 07:29 Hct 25 % (42-52) L 10/18/17 07:29 MCV 85 fL (80-94) 10/18/17 07:29 MCH 28 pg (27-31) 10/18/17 07:29 MCHC 33 g/dl (31-36) 10/18/17 07:29 RDW 15 % (10.5-15) 10/18/17 07:29 Plt Count 194 10^3/ul (150-450) 10/18/17 07:29 MPV 8 um3 (7.4-10.4) 10/18/17 07:29 Neut % (Auto) 69.4 % (38-83) 10/15/17 05:02 Lymph % (Auto) 18.6 % (25-47) L 10/15/17 05:02 [place] % (Auto) 8.4 % (1-9) 10/15/17 05:02 Eos % (Auto) 2.3 % (0-6) 10/15/17 05:02 Baso % (Auto) 1.3 % (0-2) 10/15/17 05:02 Absolute Neuts (auto) 3.9 10^3/ul (1.5-7.7) 10/15/17 05:02 Absolute Lymphs (auto) 1.1 10^3/ul (1.0-4.8) 10/15/17 05:02 Absolute Monos (auto) 0.5 10^3/ul (0-0.8) 10/15/17 05:02 Absolute Eos (auto) 0.1 10^3/ul (0-0.6) 10/15/17 05:02 Absolute Basos (auto) 0.1 10^3/ul (0-0.2) 10/15/17 05:02 Absolute Nucleated RBC 0 10^3/ul 10/15/17 05:02 Nucleated RBC % 0 10/15/17 05:02 ESR 120 mm/Hr (0-20) H 10/16/17 04:57 Sodium 133 mmol/L (133-145) 10/18/17 07:29 Potassium 4.7 mmol/L (3.5-5.0) 10/18/17 07:29 Chloride 104 mmol/L (101-111) 10/18/17 07:29 Carbon Dioxide 23 mmol/L (22-32) 10/18/17 07:29 Anion Gap 6 mmol/L (2-11) 10/18/17 07:29 BUN 40 mg/dL (6-24) H 10/18/17 07:29 Creatinine 3.18 mg/dL (0.67-1.17) H 10/18/17 07:29 Est GFR ( Amer) 26.8 (>60) 10/18/17 07:29 Est GFR (Non-Af Amer) 20.8 (>60) 10/18/17 07:29 BUN/Creatinine Ratio 12.6 (8-20) 10/18/17 07:29 Glucose 140 mg/dL (70-100) H 10/18/17 07:29 POC Glucose (mg/dL) 121 mg/dL (70-100) H 10/18/17 12:07 Hemoglobin A1c 8.7 % (4.0-5.6) H 10/14/17 19:09 Lactic Acid 0.7 mmol/L (0.5-2.0) 10/14/17 19:09 Calcium 8.6 mg/dL (8.6-10.3) 10/18/17 07:29 Total Bilirubin 0.30 mg/dL (0.2-1.0) 10/14/17 19:09 AST 13 U/L (13-39) 10/14/17 19:09 ALT 11 U/L (7-52) 10/14/17 19:09 Alkaline Phosphatase 88 U/L (34-104) 10/14/17 19:09 Troponin I 0.02 ng/mL (<0.04) 10/15/17 05:02 C-Reactive Protein 26.51 mg/L (< 5.00) H 10/16/17 04:57 Total Protein 6.5 g/dL (6.4-8.9) 10/14/17 19:09 Albumin 2.8 g/dL (3.2-5.2) L 10/14/17 19:09 Globulin 3.7 g/dL (2-4) 10/14/17 19:09 Albumin/Globulin Ratio 0.8 (1-3) L 10/14/17 19:09 Random Vancomycin 20.5 mcg/mL 10/17/17 04:20 Assessment: []POD 2 s/p right toes 2-5 amputation Plan: []NWB RLE. OOB with crutches abx per ID Patient refuses rehab, he will be discharged home No DVT prophylaxis needed F/U Dr. Galarza 1 week post op. Keep splint CDI
[2017-10-18] MEDS ORDERED: Atorvastatin* 20 MG TAB PO SCH (17:00)
--- NOTE | 2017-10-18 17:04 | PN ---
Subjective Date of Service: 10/18/17 Interval History: Pain controlled with oxy/APAP and gabapentin. No new c/o. Appetite OK. Objective Active Medications: Albuterol (Ventolin 2.5 Mg/3 Ml Neb.Sabrina*) 2.5 mg INH Q4H PRN PRN Reason: SOB/WHEEZING Dextrose (D50w Syringe 50 Ml*) 12.5 gm IV PUSH .FOR FS < 60 - SS PRN PRN Reason: FS < 60 Furosemide (Lasix Tab*) 60 mg PO QAM [facility] Last Admin: 10/18/17 08:43 Dose: 60 mg Gabapentin (Neurontin Cap(*)) 300 mg PO TID [facility] Last Admin: 10/18/17 13:11 Dose: 300 mg Heparin Sodium (Porcine) (Heparin Vial(*)) 5,000 units SUBCUT Q8HR [facility] Last Admin: 10/18/17 13:11 Dose: 5,000 units Cefazolin Sodium/Dextrose (Kefzol 2 Gm Premix(*)) 2 gm in 50 mls @ 100 mls/hr IVPB Q8H [facility] Last Admin: 10/18/17 15:31 Dose: 100 mls/hr Insulin Glargine (Lantus(*)) 80 units SUBCUT QAM [facility] Last Admin: 10/18/17 08:44 Dose: 80 units Insulin Human Lispro (Humalog*) 0 units SUBCUT ACHS [facility] PRN Reason: Protocol Last Admin: 10/18/17 12:13 Dose: Not Given Nifedipine (Procardia Xl Tab*) 60 mg PO DAILY [facility] Last Admin: 10/18/17 08:43 Dose: 60 mg Oxycodone/Acetaminophen (Percocet 5/325 Tab*) 1 tab PO Q4H PRN PRN Reason: PAIN Last Admin: 10/18/17 08:43 Dose: 1 tab Pharmacy Consult (Zosyn Per Pharmacy*) 1 note FOLLOW UP .ZOSYN PER PHARMACY [facility] Vital Signs - 8 hr 10/18/17 10/18/17 10/18/17 11:14 12:13 13:11 Temperature 98.1 F Pulse Rate 77 Respiratory 18 15 18 Rate Blood Pressure 161/78 (mmHg) O2 Sat by Pulse 97 Oximetry 10/18/17 10/18/17 15:24 15:35 Temperature 98.0 F Pulse Rate 80 Respiratory 20 18 Rate Blood Pressure 165/84 (mmHg) O2 Sat by Pulse 96 Oximetry Oxygen Devices in Use Now: None Appearance: Alert, partly up in bed. In good spirits. Looks comfortable. Eyes: No Scleral Icterus Respiratory: Symmetrical Chest Expansion and Respiratory Effort, Clear to Auscultation, Clear to Percussion Cardiovascular: NL Sounds; No Murmurs; No JVD, RRR, No Edema, - Extremities: No Edema, No Clubbing, Cyanosis, - - R foot bandaged Skin: No Rash or Ulcers, No Nodules or Sclerosis, - Neurological: Alert and Oriented x 3, NL Sensation Result Diagrams: 10/18/17 07:29 10/18/17 07:29 Microbiology and Other Data: Microbiology 10/14/17 23:09 Nasal Screen MRSA (PCR)([facility]) - Final Nasal Mrsa Negative Assess/Plan/Problems-Billing Assessment: 52 yo M with h/o DM, CKD stage 4, L TMA, hyperkalemia presents with bleeding R second toe and necrotic 5th toe. - Patient Problems (1) Toe osteomyelitis, right Current Visit: Yes Status: Acute Code(s): M86.9 - OSTEOMYELITIS, UNSPECIFIED SNOMED Code(s): 24275766 Comment: Acute on chronic process. S/p R midfoot amputation by Dr. Galarza on 10/16/17, doing well Plan cefuroxime as outpt for 7 days. (2) Diabetes Current Visit: No Status: Chronic Code(s): E11.9 - TYPE 2 DIABETES MELLITUS WITHOUT COMPLICATIONS SNOMED Code(s): 69054846 Comment: Cont Lantus and ISS (3) CKD (chronic kidney disease) Current Visit: No Status: Acute Code(s): N18.9 - CHRONIC KIDNEY DISEASE, UNSPECIFIED SNOMED Code(s): 155423454 Comment: Likely due to combination of DM and HTN. creat at baseline Nutrition consult for renal diet. Recommend outpt nephrology fup. (4) Hypertension Current Visit: No Status: Acute Code(s): I10 - ESSENTIAL (PRIMARY) HYPERTENSION SNOMED Code(s): 99074554 Comment: Add BB 10/18/17 PM for better BP control. (5) Anemia of chronic disease Current Visit: No Status: Chronic Code(s): D63.8 - ANEMIA IN OTHER CHRONIC DISEASES CLASSIFIED ELSEWHERE SNOMED Code(s): 909919610 Comment: Stable. Status and Disposition: inpatient
[2017-10-18] MEDS: Metoprolol Tartrate TAB* 25 MG PO SCH (22:43)
[2017-10-19] MEDS: Heparin VIAL(*) 5000 UNITS/ML VIAL (FIVE THOUSAND) SUBCUT SCH ×2 (06:00→15:05)
[2017-10-19] MEDS: ceFAZolin 2 GM PREMIX (*) 2 GM/50 ML BAG IVPB SCH (07:30)
--- NOTE | 2017-10-19 08:40 | PN ---
Progress Note - Progress Note Date of Service: 10/19/17 SOAP: Subjective: []Patient seen at bedside. He feels well and is ready for DC. Denies RLE pain, dizziness, SOB. Objective: [] Vital Signs Temp 97.6 F 10/19/17 07:29 Pulse 66 10/19/17 07:29 Resp 16 10/19/17 07:43 BP 149/88 10/19/17 07:29 Pulse Ox 98 10/19/17 07:29 Intake & Output 10/18/17 10/19/17 10/19/17 18:59 06:59 18:59 Intake Total 3073 630 Output Total 2950 1725 725 Balance 123 -1095 -725 Intake: IV Fluids 115 30 ABX - CEFAZOLIN 85 30 NS (0.9%) 30 IVPB 58 60 ABX - CEFAZOLIN 58 60 Oral 2900 540 Output: Urine 2950 1725 725 Other: # Bowel Movements 0 0 Laboratory Last Values WBC 4.4 10^3/ul (3.5-10.8) 10/18/17 07:29 RBC 2.91 10^6/ul (4.0-5.4) L 10/18/17 07:29 Hgb 8.2 g/dl (14.0-18.0) L 10/18/17 07:29 Hct 25 % (42-52) L 10/18/17 07:29 MCV 85 fL (80-94) 10/18/17 07:29 MCH 28 pg (27-31) 10/18/17 07:29 MCHC 33 g/dl (31-36) 10/18/17 07:29 RDW 15 % (10.5-15) 10/18/17 07:29 Plt Count 194 10^3/ul (150-450) 10/18/17 07:29 MPV 8 um3 (7.4-10.4) 10/18/17 07:29 Neut % (Auto) 69.4 % (38-83) 10/15/17 05:02 Lymph % (Auto) 18.6 % (25-47) L 10/15/17 05:02 [place] % (Auto) 8.4 % (1-9) 10/15/17 05:02 Eos % (Auto) 2.3 % (0-6) 10/15/17 05:02 Baso % (Auto) 1.3 % (0-2) 10/15/17 05:02 Absolute Neuts (auto) 3.9 10^3/ul (1.5-7.7) 10/15/17 05:02 Absolute Lymphs (auto) 1.1 10^3/ul (1.0-4.8) 10/15/17 05:02 Absolute Monos (auto) 0.5 10^3/ul (0-0.8) 10/15/17 05:02 Absolute Eos (auto) 0.1 10^3/ul (0-0.6) 10/15/17 05:02 Absolute Basos (auto) 0.1 10^3/ul (0-0.2) 10/15/17 05:02 Absolute Nucleated RBC 0 10^3/ul 10/15/17 05:02 Nucleated RBC % 0 10/15/17 05:02 ESR 120 mm/Hr (0-20) H 10/16/17 04:57 Sodium 133 mmol/L (133-145) 10/18/17 07:29 Potassium 4.7 mmol/L (3.5-5.0) 10/18/17 07:29 Chloride 104 mmol/L (101-111) 10/18/17 07:29 Carbon Dioxide 23 mmol/L (22-32) 10/18/17 07:29 Anion Gap 6 mmol/L (2-11) 10/18/17 07:29 BUN 40 mg/dL (6-24) H 10/18/17 07:29 Creatinine 3.18 mg/dL (0.67-1.17) H 10/18/17 07:29 Est GFR ( Amer) 26.8 (>60) 10/18/17 07:29 Est GFR (Non-Af Amer) 20.8 (>60) 10/18/17 07:29 BUN/Creatinine Ratio 12.6 (8-20) 10/18/17 07:29 Glucose 140 mg/dL (70-100) H 10/18/17 07:29 POC Glucose (mg/dL) 145 mg/dL (70-100) H 10/19/17 08:19 Hemoglobin A1c 8.7 % (4.0-5.6) H 10/14/17 19:09 Lactic Acid 0.7 mmol/L (0.5-2.0) 10/14/17 19:09 Calcium 8.6 mg/dL (8.6-10.3) 10/18/17 07:29 Total Bilirubin 0.30 mg/dL (0.2-1.0) 10/14/17 19:09 AST 13 U/L (13-39) 10/14/17 19:09 ALT 11 U/L (7-52) 10/14/17 19:09 Alkaline Phosphatase 88 U/L (34-104) 10/14/17 19:09 Troponin I 0.02 ng/mL (<0.04) 10/15/17 05:02 C-Reactive Protein 26.51 mg/L (< 5.00) H 10/16/17 04:57 Total Protein 6.5 g/dL (6.4-8.9) 10/14/17 19:09 Albumin 2.8 g/dL (3.2-5.2) L 10/14/17 19:09 Globulin 3.7 g/dL (2-4) 10/14/17 19:09 Albumin/Globulin Ratio 0.8 (1-3) L 10/14/17 19:09 Random Vancomycin 20.5 mcg/mL 10/17/17 04:20 General: Well appearing, NAD RLE: Splint CDI. No erythema proximally. LLE: calf supple and nontender without erythema or edema. Assessment: []POD 3 s/p right toes 2-5 amputation Plan: []NWB RLE. OOB with crutches Abx per ID Patient refuses rehab, he will be discharged home. No DVT prophylaxis needed F/U Dr. Galarza 1 week post op. Keep splint CDI
[2017-10-19] MEDS: NIFEdipine ER TAB* 30 MG PO SCH (09:01)
[2017-10-19] MEDS: Furosemide TAB* 20 MG PO SCH (09:01)
[2017-10-19] MEDS: Gabapentin CAP(*) 300 MG PO SCH ×2 (09:01→15:19)
[2017-10-19] MEDS: Insulin LISPRO* 1 UNITS UNIT SUBCUT SCH ×2 (09:02→13:10)
[2017-10-19] MEDS: Insulin GLARGINE(*) 1 UNITS UNIT SUBCUT SCH (09:02)
[2017-10-19] MEDS: Metoprolol Tartrate TAB* 25 MG PO SCH (09:02)
--- NOTE | 2017-10-19 10:09 | PN ---
Progress Note - Progress Note Date of Service: 10/19/17 Note: Time spent on discharge 50 minutes.
--- NOTE | 2017-10-19 10:11 | PN ---
"Progress Note - Progress Note Date of Service: 10/19/17 Note: This report was requested by: Juni Manning | Reference #: [id number] Others' Prescriptions Patient Name: Tanner Galo Date: 1965 Address: [place] [address] Sex: Male Rx Written Rx Dispensed Drug Quantity Days Supply Prescriber Name 03/01/2017 03/02/2017 oxycodone hcl 10 mg tablet 40 7 Porsha Pierre J 01/26/2017 01/30/2017 oxycodone hcl 10 mg tablet 90 15 Hillary Jacobs Patient Name: Tanner Galo Date: 1965 Address: [address] [place] [address] Sex: Male Rx Written Rx Dispensed Drug Quantity Days Supply Prescriber Name 01/27/2017 01/27/2017 lorazepam 0.5 mg tablet 15 15 Suyapa Jeffrey MD 01/27/2017 01/27/2017 oxycodone hcl 10 mg tablet 60 10 Suyapa Jeffrey MD Patient Name: Tanner Galo Date: 1965 Address: [address] [place] [address] [place] [address] Sex: Male Rx Written Rx Dispensed Drug Quantity Days Supply Prescriber Name 12/28/2016 12/31/2016 lorazepam 0.5 mg tablet 10 10 Jaye Marie DO 11/28/2016 12/02/2016 lorazepam 0.5 mg tablet 10 10 Jaye Marie DO"
[2017-10-19 11:53] VITALS: BP 158/83
--- NOTE | 2017-10-19 17:20 | DS ---
CC: Dr. Rodriguez * DISCHARGE SUMMARY: DATE OF ADMISSION: DATE OF DISCHARGE: 10/19/17 HISTORY AND HOSPITAL COURSE: This 52-year-old man came complaining of a bleeding toe. The patient had previously been hospitalized at [facility] 10/09/17 through 10/12/17. He was treated for right second toe cellulitis and osteomyelitis and placed on oral antibiotics. The patient thought he had a tack on his toe as well. In the emergency room, he had some chest discomfort. The patient had some exacerbation of his chronic renal failure with acute on chronic renal failure. He was hyperkalemic. He was started on intravenous vancomycin and piperacillin and tazobactam. Wound cultures grew out oxacillin-sensitive Staph aureus from surface cultures. Nasal MRSA screen was negative. No blood cultures were obtained. Dr. Phillip saw him in consultation. Dr. Galarza performed disarticulation of the right second, third, fourth, and fifth toes. The patient had lower extremity MRI on 10/16/17. This was consistent with cellulitis and osteomyelitis of the second distal phalanx and conjoined middle and distal phalanges. Surgical procedure was done the same day as the MRI, 10/16/17. The patient did well postoperatively. His wound will be dressed and be changed by the orthopedist at his followup visit as an outpatient. He was given oxycodone/APAP to use at home. He is on full weightbearing status. His losartan and hydrochlorothiazide was stopped. He was given metoprolol succinate for better blood pressure control. Control of risk factors particularly his LDL cholesterol, blood pressure, and A1c levels should be aggressive as possible. He will have Nutrition consultation for combined renal and diabetic diet before discharge. I would recommend a Nephrology consultation and followup as an outpatient. He was started on gabapentin, which seemed to give some help with his pain control. In addition, he was given 30 tablets' supply of oxycodone, acetaminophen 5/325 to use p.r.n. FINAL DIAGNOSES: 1. Osteomyelitis, right second toe, status post disarticulation second through fifth toes. 2. Diabetes. 3. Acute on chronic kidney disease. 4. Hypertension. 5. Anemia of chronic disease. DISCHARGE MEDICATIONS: 1. Cefuroxime 500 mg b.i.d. for 7 days. 2. Lispro insulin as prescribed. 3. Metoprolol succinate 50 mg daily. 4. Oxycodone/acetaminophen 5/325 one every 4 hours p.r.n. 5. Atorvastatin 20 mg daily at 5 p.m. 6. Gabapentin 300 mg t.i.d. 7. Furosemide 60 mg daily. 8. Glargine insulin 80 units every morning. 9. Albuterol inhaler 2 puffs every 4 hours p.r.n. 10. Regular insulin/Novolin 15 units t.i.d. before meals. 11. Tiotropium 1 capsule daily. 12. Nifedipine ER 60 mg daily. 13. Albuterol 2.5 mg by nebulizer every 4 hours p.r.n. 14. Fluticasone/vilanterol 1 puff daily. [id number]/[facility] #: [id number] MTDD
[2017-10-19] MEDS ORDERED: ceFUROXime TAB(*) 250 MG PO SCH (21:00)
[2017-10-20] MEDS ORDERED: Metoprolol Succinate XL TAB* 50 MG PO SCH (09:00)
== END 2017-10-19 16:11 | disposition home or self-care (01) | DRG 617 ==
LOC: ED 16:27 → OBSVTOIN 21:32 → MEDTELE 21:32
PROVIDERS: ADMIT Hospitalist; ATTEND Internal Medicine
PROC: 0Y6X0Z0 Detachment at Right 5th Toe, Complete, Open Approach (ICD-10-PCS; 2017-10-16)
PROC: 0Y6V0Z0 Detachment at Right 4th Toe, Complete, Open Approach (ICD-10-PCS; 2017-10-16)
PROC: 0Y6T0Z0 Detachment at Right 3rd Toe, Complete, Open Approach (ICD-10-PCS; 2017-10-16)
PROC: 0Y6R0Z0 Detachment at Right 2nd Toe, Complete, Open Approach (ICD-10-PCS; principal; 2017-10-16 15:00)
DX: E11.69 Type 2 diabetes mellitus with other specified complication (principal); M86.8X7 Other osteomyelitis, ankle and foot; E11.22 Type 2 diabetes mellitus with diabetic chronic kidney disease; E11.40 Type 2 diabetes mellitus with diabetic neuropathy, unspecified; N17.9 Acute kidney failure, unspecified; N18.3 Chronic kidney disease, stage 3 (moderate); E66.01 Morbid (severe) obesity due to excess calories; E87.1 Hypo-osmolality and hyponatremia; Z68.41 Body mass index [BMI] 40.0-44.9, adult; B95.61 Methicillin susceptible Staphylococcus aureus infection as the cause of diseases classified elsewhere; E11.51 Type 2 diabetes mellitus with diabetic peripheral angiopathy without gangrene; I12.9 Hypertensive chronic kidney disease with stage 1 through stage 4 chronic kidney disease, or unspecified chronic kidney disease; L03.031 Cellulitis of right toe; E78.5 Hyperlipidemia, unspecified; E87.5 Hyperkalemia; F32.9 Major depressive disorder, single episode, unspecified; D63.1 Anemia in chronic kidney disease; Z89.411 Acquired absence of right great toe; Z89.432 Acquired absence of left foot; Z79.4 Long term (current) use of insulin; Z79.899 Other long term (current) drug therapy; Z88.5 Allergy status to narcotic agent; Z88.8 Allergy status to other drugs, medicaments and biological substances; Z84.89 Family history of other specified conditions
CPT/HCPCS: 36415; 80048; 80051; 80053; 80202; 83036; 83605; 84484; 85025; 85027; 85652; 86140; 87070; 87073; 87205; 87640; 87641; 90715; 90732; 93005; 99284; A9270-GY; J0360; J0610; J0690; J1644; J1815; J2001; J2250; J2270; J2543; J3010; J3370

== ENCOUNTER 2017-11-06 09:18 | Emergency (ER) | payer MEDICARE, MEDICAID ==
[2017-11-06 10:25] VITALS: BP 163/82
--- NOTE | 2017-11-06 10:52 | UC ---
Lower Extremity/Ankle HPI - HPI Summary HPI Summary: 52 y/o male presents to the urgent care requesting medication refill for his Lasix and Gabapentin PO since he run out of medications. Pt reports he recently had amputation surgery of his Right second through fifth toes due to osteomyelitis on 10/25/[address] [place] [facility] [place] applied on right lower extremity 10/31/17 and had been in a wheelchair. PCP dropped patient due to missed appointments. Wants to establish with Dr. Prakash. Patient states he ran out laxis yesterday and he noticed leg swelling this morning. Patient is a poor historian.Pt has a follow-up appointment with Dr. Robert Galarza tomorrow for check up on his amputation. Pt doesn't recall the dosage for his medications. Pt denies pain, numbness an d tingling over lower extremities, fever, SOB, calf pain, chest pain, abdominal pain, N/V/D. - History of Current Complaint Chief Complaint: UCGeneralIllness Stated Complaint: RIGHT LEG COMPLAINT S/P SURGERY Time Seen by Provider: 11/06/17 10:49 Onset/Duration: Gradual Onset, Lasting Days - 5 days, Still Present Severity Initially: Mild Severity Currently: Mild Pain Intensity: 5 Pain Scale Used: 0-10 Numeric Aggravating Factor(s): Standing Alleviating Factor(s): Rest, OTC Meds Able to Bear Weight: No - Risk Factors Gout Risk Factors: Negative DVT Risk Factors: Recent Period Of Bedrest, Recent Surgery - amputation of 4 toes of Rt foot on 10/25/2017 Septic Arthritis Risk Factor: Negative - Allergies/Home Medications Allergies/Adverse Reactions: Allergies Allergy/AdvReac Type Severity Reaction Status Date / Time peanut Allergy Rash Verified 11/06/17 10:22 peanut oil Allergy Rash Verified 11/06/17 10:22 spinach Allergy "My tongue Verified 11/06/17 10:22 swells up and I can't breathe." strawberry Allergy "My tongue Verified 11/06/17 10:22 swells right up." sulfamethoxazole Allergy "I don't Verified 11/06/17 10:22 [From Bactrim] know ... lips swelled up." trimethoprim [From Bactrim] Allergy "I don't Verified 11/06/17 10:22 know ... lips swelled up." PMH/Surg Hx/FS Hx/Imm Hx Previously Healthy: Yes Endocrine History: Diabetes, Dyslipidemia Other Endocrine History: Diabetic neuropathy Cardiovascular History: Hypertension GI/ History: Renal Disease - CKD stage 3 - Surgical History Surgical History: Yes Surgery Procedure, Year, and Place: right big toe amputation,. CATARACT WITH LENS IMPLANTS - BY DR DENNEY. Partial left foot amputation - Family History Known Family History: Positive: None, Diabetes Negative: Cardiac Disease - Social History Occupation: Disabled Lives: With Family Alcohol Use: None Substance Use Type: None Substance Use Comment - Amount & Last Used: CHEWING TOBACCO Smoking Status (MU): Former Smoker Type: Cigarettes, Smokeless Tobacco Amount Used/How Often: quit in 2009 Length of Time of Smoking/Using Tobacco: <1 PPD x 26 Years Have You Smoked in the Last Year: No When Did the Patient Quit Smoking/Using Tobacco: 2009 Household Exposure Type: Cigarettes - Immunization History Most Recent Influenza Vaccination: unk Most Recent Pneumonia Vaccination: never Review of Systems Constitutional: Negative Skin: Negative Eyes: Negative ENT: Negative Respiratory: Negative Cardiovascular: Negative Gastrointestinal: Negative Genitourinary: Negative Motor: Negative Neurovascular: Negative Musculoskeletal: Other: - B/L leg swelling Neurological: Negative Psychological: Negative Is Patient Immunocompromised?: No All Other Systems Reviewed And Are Negative: Yes Physical Exam Triage Information Reviewed: Yes Vital Signs: Initial Vital Signs Temp 98 F 11/06/17 10:12 Pulse 66 11/06/17 10:12 Resp 18 11/06/17 10:12 BP 163/82 11/06/17 10:12 Pulse Ox 99 11/06/17 10:12 - Additional Comments Vital Signs Reviewed: Yes General: well developed, well nourished obese male sitting in the chair w/ any apparent distress, walks w/ the help of a cane Eyes: Positive: Conjunctiva Clear - PERRLA< RACHELLE, fundi grossly WNL ENT: Positive: Normal ENT inspection, Hearing grossly normal, Pharynx normal, TMs normal, Uvula midline Neck: Positive: Supple, Nontender, No Lymphadenopathy Respiratory: Positive: Chest non-tender, Lungs clear, Normal breath sounds, No respiratory distress Cardiovascular: Positive: RRR, No Murmur, Pulses Normal, Brisk Capillary Refill Abdomen Description: Positive: Nontender, No Organomegaly, Soft. Negative: CVA Tenderness (R), CVA Tenderness (L) Bowel Sounds: Positive: Present Extremities: RT lower extremity w/ a cast in place s/p amputation of RT great toe. LF lower leg w/o any deformity observed. only mild edema. No overlying erythema, warmth, discoloration. No lesions or break in skin integrity. Soft tissues of posterior left lower leg is soft, supple, nontender and no palpable cords or evidence of thrombophlebitis. No evidence of gangrene or compartment syndrome observed. RT lower leg cast w/ space in between. Medial thigh is without soft tissue swelling or tender to palpation. Negative Homans sign. No proximal lymphangitis or lymphadenopathy. Neurological Exam: Normal Psychological Exam: Normal Skin Exam: Normal Lower Extremity Course/Dx - Course Course Of Treatment: 52 y/o male presents to the urgent care requesting medication refill for his Lasix and Gabapentin PO since he run out of medications. Pt reports he recently had amputation surgery of his Right second through fifth toes due to osteomyelitis on 10/25/[address] [place] [facility] [place] applied on right lower extremity 10/31/17 and had been in a wheelchair. PCP dropped patient due to missed appointments. Wants to establish with Dr. Prakash. Patient states he ran out laxis yesterday and he noticed leg swelling this morning. Patient is a poor historian.Pt has a follow-up appointment with Dr. Robert Galarza tomorrow for check up on his amputation. Pt doesn't recall the dosage for his medications. Pt denies pain, numbness an d tingling over lower extremities, fever, SOB, calf pain, chest pain, abdominal pain, N/V/D. Hx obtained. PE: Pt s/p LF toe amputation surgery. Left lower leg w/ a cast in place. Mild edema observed on RT lower leg on examiantion. Nurse contacted pharmacy and dosages obtained. Pt Rx Gabapetin PO and Lasix PO for 1 week and strongly advised to f/u w/ his new PCP DR Prakash and F/U w/ Dr galarza tomorrow for check up on his surgery. Pt educated on medication compliance. Pt's BP is elevated today advised to decrease salt in diet, monitor BP and f/u with PCP for further management. Pt understood and agreed w/ paln of care. Left the clinic ambulating and hemodynamycally stable - Differential Dx/Diagnosis Differential Diagnosis/HQI/PQRI: Osteomyelitis, Phlebitis, Other - edema Provider Diagnoses: 1- B/L leg edema. 2- Medication refill. 3-Diabetic neuropathy. 4- Uncontrolled HTN Discharge - Discharge Plan Condition: Stable Disposition: HOME Prescriptions: Furosemide TAB* [Lasix TAB*] 40 mg PO QAM #7 tab Gabapentin CAP(*) [Neurontin 300 CAP(*)] 300 mg PO TID #21 cap Patient Education Materials: Peripheral Neuropathy (ED), Leg Edema (ED), Low- Sodium Diet (ED) [place] [facility] [place] - 2 Days Additional Instructions: 1--Please take Gabapentin PO TID and Lasix to alleviate symptoms. Please f/u your aptt w/ your PCP DR Hartley as sson as possible for further managment. Keep legs elevated. 2-If symptoms do not improve or worsen and you develop SOB, palpitations , severe leg swelling w./ pain please go immediately to the ER for further treatment. 3-Your BP is elevated today. please decrease salt in your diet, monitor BP and if it continues to be elevated please f/u with your PCP for further management
== END 2017-11-06 11:45 | disposition home or self-care (01) ==
LOC: UCCORT 09:18
DX: R60.0 Localized edema (principal); Z76.0 Encounter for issue of repeat prescription; E11.40 Type 2 diabetes mellitus with diabetic neuropathy, unspecified; I10 Essential (primary) hypertension; E78.5 Hyperlipidemia, unspecified; N18.3 Chronic kidney disease, stage 3 (moderate); Z89.421 Acquired absence of other right toe(s); Z89.432 Acquired absence of left foot; Z98.49 Cataract extraction status, unspecified eye; Z96.1 Presence of intraocular lens; Z88.2 Allergy status to sulfonamides; Z91.010 Allergy to peanuts; F17.220 Nicotine dependence, chewing tobacco, uncomplicated
CPT/HCPCS: 99212; G0463

== ENCOUNTER 2017-12-20 18:29 | Emergency (ER) | payer MEDICARE, MEDICAID ==
[2017-12-20 20:03] LABS: ABS Basophils 0 10^3/ul (0-0.2); ABS Eosinophils 0.1 10^3/ul (0-0.6); ABS Lymphocytes 0.9 10^3/ul (1.0-4.8); ABS Monocytes 0.4 10^3/ul (0-0.8); ABS Neutrophils 3.2 10^3/ul (1.5-7.7); ABS Nucleated RBC 0 10^3/ul; Eosinophil % 2.4 % (0-6); Hematocrit 33 % (42-52); Hemoglobin 10.7 g/dl (14.0-18.0); Mean Corpuscular HGB Conc 32 g/dl (31-36); Mean Corpuscular Hemoglobin 28 pg (27-31); Mean Corpuscular Volume 86 fL (80-94); Mean Platelet Volume 8.7 um3 (7.4-10.4); Nucleated Red Blood Cells % 0.1; Platelet Count 150 10^3/ul (150-450); Red Blood Count 3.84 10^6/ul (4.0-5.4); Red Cell Distribution Width 16 % (10.5-15); White Blood Count 4.6 10^3/ul (3.5-10.8)
[2017-12-20 20:20] LABS: EGFR Non-African American 20.9 (>60)
[2017-12-20] MEDS ORDERED: Sodium Polystyrene ORAL.SOL* 15 GM/60 ML BTL PO ONE (20:46)
[2017-12-20 21:48] VITALS: BP 179/83
--- NOTE | 2017-12-20 22:00 | ED ---
Francisco Cabral Nilda, scribed for Jillian Ocasio MD on 12/20/17 at 2102 . Complex/Multi-Sys Presentation - HPI Summary HPI Summary: This pt is a 52 y/o M with Hx DM and renal insufficiency. Patient went to PCP at [facility] yesterday and blood work revealed high potassium. Pt is currently asymptomatic. He denies weakness, vomiting, nausea, and pain. - History Of Current Complaint Chief Complaint: EDGeneral Time Seen by Provider: 12/20/17 19:47 Hx Obtained From: Patient Onset/Duration: Sudden Onset, Lasting Days, Still Present Severity Currently: None Location: Negative Associated Signs And Symptoms: Positive: Other - currently asymptomatic. He denies weakness, vomiting, nausea, and pain. - Allergies/Home Medications Allergies/Adverse Reactions: Allergies Allergy/AdvReac Type Severity Reaction Status Date / Time peanut Allergy Rash Verified 11/06/17 10:22 peanut oil Allergy Rash Verified 11/06/17 10:22 spinach Allergy "My tongue Verified 11/06/17 10:22 swells up and I can't breathe." strawberry Allergy "My tongue Verified 11/06/17 10:22 swells right up." sulfamethoxazole Allergy "I don't Verified 11/06/17 10:22 [From Bactrim] know ... lips swelled up." trimethoprim [From Bactrim] Allergy "I don't Verified 11/06/17 10:22 know ... lips swelled up." Home Medications: Home Medications Fluticasone/Vilanterol MDI(NF) [Breo Ellipta MDI (NF)] 1 puff INH DAILY [History Confirmed 12/20/17] Furosemide TAB* [Lasix TAB*] 20 mg PO DAILY 12/20/17 [History Confirmed 12/20/17 ] Gabapentin CAP(*) [Neurontin 300 CAP(*)] 300 mg PO TID 12/20/17 [History Confirmed 12/20/17] Insulin Detemir (NF) [Levemir (NF)] 64 unit SUBCUT DAILY 12/20/17 [History Confirmed 12/20/17] Insulin Regular, Human [Novolin R Relion] 10 unit SUBCUT DAILY 12/20/17 [ History Confirmed 12/20/17] Ipratropium [place] [Ipratropium [place]] 0.06 % BOTH NARES DAILY 12/20/17 [ History Confirmed 12/20/17] Lisinopril TAB* [Prinivil TAB*] 20 mg PO DAILY 12/20/17 [History Confirmed 12/20] Metoprolol Succinate XL TAB* [Toprol XL TAB*] 50 mg PO DAILY 12/20/17 [History Confirmed 12/20/17] NIFEdipine ER TAB* [Procardia Xl TAB*] 60 mg PO DAILY 12/20/17 [History Confirmed 12/20/17] Sertraline* [Zoloft*] 50 mg PO DAILY 12/20/17 [History Confirmed 12/20/17] Simvastatin TAB(NF) [Zocor(NF)] 20 mg PO DAILY 12/20/17 [History Confirmed 12/20] PMH/Surg Hx/FS Hx/Imm Hx Endocrine/Hematology History: Reports: Hx Diabetes, Hx Anemia Denies: Hx Blood Transfusions, Hx Systemic Lupus Erythematosus, Hx Thyroid Disease, Other Endocrine/Hematological Disorders Cardiovascular History: Reports: Hx Hypercholesterolemia, Hx Hypertension Denies: Hx Angina, Hx Congestive Heart Failure, Hx Coronary Artery Disease, Hx Myocardial Infarction, Hx Pacemaker/ICD Respiratory History: Reports: Hx Chronic Obstructive Pulmonary Disease (COPD) - home O2, does not use, Hx Sleep Apnea - UNSURE- SCHEDULED FOR A SLEEP STUDY Denies: Hx Asthma, Hx Pulmonary Embolism GI History: Denies: Hx Ulcer History: Reports: Other Problems/Disorders - CKD Denies: Hx Dialysis, Hx Renal Disease Musculoskeletal History: Reports: Other Musculoskeletal History - R great toe amputation, L partial foot amputation, L achilles tendon remove Denies: Hx Rheumatoid Arthritis Sensory History: Reports: Hx Cataracts - removed bilat Denies: Hx Contacts or Glasses, Hx Hearing Aid Opthamlomology History: Reports: Hx Cataracts - removed bilat Denies: Hx Contacts or Glasses Neurological History: Reports: Other Neuro Impairments/Disorders - Hx Pre syncope, phantom toe pain left foot Psychiatric History: Reports: Hx Anxiety - PRN LORAZEPAM Denies: Hx Panic Disorder - Cancer History Hx Chemotherapy: No - Surgical History Surgery Procedure, Year, and Place: right big toe amputation,. CATARACT WITH LENS IMPLANTS - BY DR DENNEY. Partial left foot amputation Hx Anesthesia Reactions: No Infectious Disease History: No Infectious Disease History: Reports: Hx of Known/Suspected MRSA - [facility], Chest, 2005 Denies: Hx Hepatitis, Hx Human Immunodeficiency Virus (HIV), History Other Infectious Disease, Traveled Outside the [place] in Last 30 Days - Family History Known Family History: Positive: Diabetes Negative: Cardiac Disease - Social History Alcohol Use: Rare Substance Use Type: Reports: None Substance Use Comment - Amount & Last Used: CHEWING TOBACCO Smoking Status (MU): Former Smoker Type: Cigarettes, Smokeless Tobacco Amount Used/How Often: quit in 2009 Length of Time of Smoking/Using Tobacco: <1 PPD x 26 Years Have You Smoked in the Last Year: No Review of Systems Positive: Other - elevated potassium Negative: Vomiting, Nausea Positive: Other - negative pain Negative: Weakness All Other Systems Reviewed And Are Negative: Yes Physical Exam - Summary Physical Exam Summary: VITAL SIGNS: Reviewed. GENERAL: Patient is a well-developed and nourished male who is lying comfortable in the stretcher. Patient is not in any acute respiratory distress. HEAD AND FACE: No signs of trauma. No ecchymosis, hematomas or skull depressions. No sinus tenderness. EYES: PERRLA, EOMI x 2, No injected conjunctiva, no nystagmus. EARS: Hearing grossly intact. Ear canals and tympanic membranes are within normal limits. MOUTH: Oropharynx within normal limits. NECK: Supple, trachea is midline, no adenopathy, no JVD, no carotid bruit, no c- spine tenderness, neck with full ROM. CHEST: Symmetric, no tenderness at palpation LUNGS: Clear to auscultation bilaterally. No wheezing or crackles. CVS: Regular rate and rhythm, S1 and S2 present, no murmurs or gallops appreciated. ABDOMEN: Soft, non-tender. No signs of distention. No rebound no guarding, and no masses palpated. Bowel sounds are normal. EXTREMITIES: FROM in all major joints, no edema, no cyanosis or clubbing. Left forefoot amputation. Right toes amputated. NEURO: Alert and oriented x 3. No acute neurological deficits. Speech is normal and follows commands. SKIN: Dry and warm Triage Information Reviewed: Yes Vital Signs On Initial Exam: Initial Vitals Temp Pulse Resp BP Pulse Ox 97.4 F 66 20 126/72 65 12/20/17 18:54 12/20/17 18:54 12/20/17 18:54 12/20/17 18:54 12/20/17 18:54 Vital Signs Reviewed: Yes Diagnostics - Vital Signs Vital Signs Temp Pulse Resp BP Pulse Ox 12/20/17 18:54 97.4 F 66 20 126/72 65 - Laboratory Lab Results: Lab Results 12/20/17 12/20/17 Range/Units 19:49 19:49 WBC 4.6 (3.5-10.8) 10^3/ul RBC 3.84 L (4.0-5.4) 10^6/ul Hgb 10.7 L (14.0-18.0) g/dl Hct 33 L (42-52) % MCV 86 (80-94) fL MCH 28 (27-31) pg MCHC 32 (31-36) g/dl RDW 16 H (10.5-15) % Plt Count 150 (150-450) 10^3/ul MPV 8.7 (7.4-10.4) um3 Neut % (Auto) 69.3 (38-83) % Lymph % (Auto) 19.0 L (25-47) % [place] % (Auto) 8.3 H (0-7) % Eos % (Auto) 2.4 (0-6) % Baso % (Auto) 1.0 (0-2) % Absolute Neuts (auto) 3.2 (1.5-7.7) 10^3/ul Absolute Lymphs (auto) 0.9 L (1.0-4.8) 10^3/ul Absolute Monos (auto) 0.4 (0-0.8) 10^3/ul Absolute Eos (auto) 0.1 (0-0.6) 10^3/ul Absolute Basos (auto) 0 (0-0.2) 10^3/ul Absolute Nucleated RBC 0 10^3/ul Nucleated RBC % 0.1 Sodium 135 (133-145) mmol/L Potassium 5.4 H (3.5-5.0) mmol/L Chloride 105 (101-111) mmol/L Carbon Dioxide 21 L (22-32) mmol/L Anion Gap 9 (2-11) mmol/L BUN 40 H (6-24) mg/dL Creatinine 3.17 H (0.67-1.17) mg/dL Est GFR ( Amer) 26.9 (>60) Est GFR (Non-Af Amer) 20.9 (>60) BUN/Creatinine Ratio 12.6 (8-20) Glucose 156 H (70-100) mg/dL Calcium 9.3 (8.6-10.3) mg/dL Total Bilirubin 0.30 (0.2-1.0) mg/dL AST 26 (13-39) U/L ALT 19 (7-52) U/L Alkaline Phosphatase 100 (34-104) U/L Total Protein 6.8 (6.4-8.9) g/dL Albumin 3.2 (3.2-5.2) g/dL Globulin 3.6 (2-4) g/dL Albumin/Globulin Ratio 0.9 L (1-3) Result Diagrams: 12/20/17 19:49 12/20/17 19:49 Lab Statement: Any lab studies that have been ordered have been reviewed, and results considered in the medical decision making process. - EKG 2052 Cardiac Rate: Bradycardia EKG Rhythm: Sinus Bradycardia - 58 bpm EKG Interpretation: nml axis, nonspecific T wave in lead 3, no signs hyperkalemia. Complex Multi-Symp Course/Dx Assessment/Plan: This pt is a 52 y/o M with Hx DM and renal insufficiency. Patient went to PCP at [facility] yesterday and blood work revealed high potassium. Pt is currently asymptomatic. He denies weakness, vomiting, nausea, and pain. EKG reveals Sinus Chidi, 58 bpm, nml axis, nonspecific T wave lead 3, no signs hyperkalemia. Pt was given one dose of Kayexalate in ED. Pt instructed to follow up with PCP in 1-2 days to monitor potassium. Dx. Asymptomatic mild Hyperkalemia and Chronic renal insufficiency. - Diagnoses Provider Diagnoses: Chronic renal insufficiency, asymptomatic hyperkalemia Discharge - Sign-Out/Discharge Documenting (check all that apply): Discharge - Discharge Plan Condition: Stable Disposition: HOME Patient Education Materials: Chronic Kidney Disease (ED), Hyperkalemia (ED) Referrals: [facility] PHYSICIAN REFERRAL [Outside] - 1 Day No Primary Care Phys,NOPCP [Primary Care Provider] - Additional Instructions: Follow up with your doctor in 1-2 days to monitor potassium. RETURN TO THE EMERGENCY DEPARTMENT FOR CHANGING OR WORSENING SYMPTOMS. The documentation as recorded by the Francisco vicenteNatalie accurately reflects the service I personally performed and the decisions made by me, Jillian Ocasio MD.
== END 2017-12-20 21:46 | disposition home or self-care (01) ==
LOC: ED 18:29
DX: E11.22 Type 2 diabetes mellitus with diabetic chronic kidney disease (principal); I12.9 Hypertensive chronic kidney disease with stage 1 through stage 4 chronic kidney disease, or unspecified chronic kidney disease; N18.9 Chronic kidney disease, unspecified; D63.1 Anemia in chronic kidney disease; Z79.4 Long term (current) use of insulin; E87.5 Hyperkalemia; E78.00 Pure hypercholesterolemia, unspecified; J44.9 Chronic obstructive pulmonary disease, unspecified; F41.9 Anxiety disorder, unspecified; Z89.411 Acquired absence of right great toe; Z89.432 Acquired absence of left foot; Z88.2 Allergy status to sulfonamides; Z87.891 Personal history of nicotine dependence
CPT/HCPCS: 36415; 80053; 85025; 93005; 99282; A9270-GY

== ENCOUNTER 2018-01-11 11:17 | Inpatient (IN) | payer MEDICARE, MEDICAID ==
--- OUTSIDE RECORDS SUMMARY | 2018-01-11 11:27 | XMS REPORT ---
:1965 External Reference #:[id number] Author Organization [facility] Address [address] [address] Phone [phone] Care Team Providers Name Role Phone Kell Rodriguez MD Primary Care Physician Unavailable Payers Type Date Identification Numbers Payment Provider Subscriber Medicare Primary Effective: Policy Number: Medicare Ammon Galo 2011 [id number] PayID: [id number] [address] [place] [address] Medigap Part B Policy Number: [id number] Medicaid Ammon Galo PayID: [id number] [address] [place] [address] Problems Date Description Provider Status Onset: 12/01/2015 Disturbance in sleep behavior Gayatri Grullon MD Active Onset: 12/01/2015 Morbid obesity Gayatri Grullon MD Active Family History Date Family Member(s) Problem(s) Comments General Heart Disease General Cancer General Diabetes General Hypertension Father Alzheimer's Disease Mother Merari Alejo Social History Type Date Description Comments Marital Status Lives With Alone Occupation Disabled Cigarette Use Quit 6 Years Ago ETOH Use Occasionally consumes alcohol Smoking Patient is a former smoker quit smoking and chews now occassionally Exercise Type/Frequency Does not exercise Allergies, Adverse Reactions, Alerts Date Description Reaction Status Severity Comments 05/02/2013 Codeine active 10/29/2015 Peanut Oil active 12/01/2015 Strawberries active Swelling tongue 12/01/2015 Chocolate active Lips swelling 01/12/2016 Sulfamethoxazole/Trimethoprim active rash Medications Medication Date Status Form Strength Qnty SIG Indications Ordering Provider Levofloxacin 12/28 Active Tablets 750mg 14tab one per day M86.671 frandy Galarza M.D. Oxycodone HCL 10/26 Active Tablets 5mg 30tab 1 tab by s mouth every Geovanni, 4-6 hours for M.D. pain. Procardia XL Active Tablets ER 30mg 90tab every day by 24HR s mouth Omeprazole Active Capsules DR 20mg 90cap every day by s mouth Bydureon Active Suspension 2mg 4unit inject Rec s contents of 1 vial subcutaneousl y every 7 days Lisinopril-Hyd Active Tablets 20-25mg 30tab 1 po daily Unknown rochlorothiaz s de Novolin R Active Solution 100Unit/M sliding scale L as needed Truejayo Active SQ once daily SQ Vitamin B12 Active Tablets ER 1 by mouth every day Tums Active Chewtabs 500mg 2 chewtabs by mouth as needed Oxycodone HCL 10/26 Hx Capsules 5mg 30cap Take 1 to 2 s tablets by Geovanni, - mouth every M.D. 10/26 4-6 hours as needed for pain. Oxycodone HCL 01/26 Hx Tablets 10mg 40tab 1 tab by s mouth q4 h as Geovanni, - needed pain M.D. 04/01 Levofloxacin 01/12 Hx Tablets 500mg 14tab 1 by mouth s every day D. - Donnie 01/26 M.D. Vancomycin HCL 12/02 Hx Solution 1500mg QS iv every 24 Rec hours through D[facility] Donnie, 12/19 home infusion .D. Ceftriaxone 12/02 Hx Solution 2gm iv every 24 Rec hours through D[facility] Donnie, 01/26 Home Infusion M.D. Bactrim DS 12/21 Hx Tablets 800-160mg 42tab 1 by mouth s three times a D. - day Donnie 01/11 M.D. Tradjenta Hx Tablets 10mg 90tab 1 po qd s - 01/10 Depo-Testoster Hx Oil 200mg/ml as directed Unknown subQ - 11/28 Oxygen Hx 2LPM as directed at night - 01/10 Vancomycin HCL 11/10 Hx Solution 1500mg QS iv every 12 Rec hours x 42 D. - days through [facility]12/14 [facility] M.D Ciprofloxacin 11/03 Hx Tablets 750mg 84tab 1 by mouth Doug s twice a day x D. - 42 days [facility] [place], 12/21 (start this M.D. when you start IV antibiotic infusions) Lisinopril 00 Hx Tablets 10mg 30tab 1 po qd Unknown /0000 s - 04/23 Amlodipine 00 Hx Tablets 5mg 90tab 1 po qd Unknown Besylate /0000 s - 04/23 Lantus 00/00 Hx Solution 100Unit/M 6Vial sliding scale Unknown /0000 L s - 04/23 Humulin R 00 Hx Solution 100Unit/M 1unit siding scale Unknown /0000 L s - 04/23 Doxycycline 00 Hx Capsules 100mg 14cap Unknown Hyclate /0000 s - 11/10 Lantus 00/00 Hx Solution 100Unit/M 2vial as directed Unknown /0000 L s - Benadryl 00/ Hx Tablets 25mg as needed Unknown Allergy /0000 - 01/10 Vancomycin HCL 00 Hx Solution 1000mg iv every 24 Unknown /0000 Rec hours - 12/21 Zosyn 00 Hx Solution 10.125gm continuous Unknown /0000 Rec infusion x 14 - days through 03/26 Immunizations CPT Code Status Date Vaccine Lot # [id number] Given 12/01/2015 Fluvirin Im 3Yrs And Older Vital Signs Date Vital Result Comment 01/02/2018 Height 75.75 inches 6'3.75" Heart Rate 78 /min Respiratory Rate 17 /min Body Temperature 96.9 F Pain Level 0 12/28/2017 Height 75.75 inches 6'3.75" Weight 363.00 lb BP Systolic 128 mmHg BP Diastolic 72 mmHg Respiratory Rate 18 /min Body Temperature 98.1 F Pain Level 0 BMI (Body Mass Index) 44.5 kg/m2 11/16/2017 Height 75.75 inches 6'3.75" Weight 363.00 lb Heart Rate 76 /min Respiratory Rate 17 /min Body Temperature 97.9 F Pain Level 0 BMI (Body Mass Index) 44.5 kg/m2 11/07/2017 Height 75.75 inches 6'3.75" Heart Rate 72 /min BP Systolic 142 mmHg BP Diastolic 90 mmHg Respiratory Rate 17 /min Body Temperature 98.0 F Pain Level 0 10/26/2017 Height 75.75 inches 6'3.75" Weight 363.00 lb BP Systolic 130 mmHg BP Diastolic 64 mmHg Respiratory Rate 17 /min Body Temperature 96.3 F Pain Level 7 BMI (Body Mass Index) 44.5 kg/m2 05/23/2017 Height 75.75 inches 6'3.75" Weight 363.00 lb Heart Rate 96 /min BP Systolic Sitting 148 mmHg BP Diastolic Sitting 90 mmHg Respiratory Rate 16 /min Body Temperature 97.9 F BMI (Body Mass Index) 44.5 kg/m2 04/19/2017 Height 75.75 inches 6'3.75" Weight 345.00 lb Heart Rate 88 /min Respiratory Rate 17 /min Body Temperature 98.2 F Pain Level 0 BMI (Body Mass Index) 42.3 kg/m2 03/27/2017 Height 75.75 inches 6'3.75" Weight 343.00 lb Heart Rate 84 /min BP Systolic Sitting 110 mmHg BP Diastolic Sitting 62 mmHg Respiratory Rate 16 /min Body Temperature 97.9 F BMI (Body Mass Index) 42.0 kg/m2 03/23/2017 Height 75.75 inches 6'3.75" Weight 362.00 lb Heart Rate 92 /min BP Systolic 140 mmHg BP Diastolic 96 mmHg Respiratory Rate 18 /min Body Temperature 96.7 F Pain Level 0 BMI (Body Mass Index) 44.4 kg/m2 02/23/2017 Height 75.75 inches 6'3.75" Weight 362.00 lb Body Temperature 97.4 F Pain Level 0 BMI (Body Mass Index) 44.4 kg/m2 02/07/2017 Height 75.75 inches 6'3.75" Weight 362.00 lb Heart Rate 104 /min BP Systolic 115 mmHg BP Diastolic 81 mmHg Body Temperature 97.5 F Pain Level 0 BMI (Body Mass Index) 44.4 kg/m2 01/11/2017 Height 75.75 inches 6'3.75" Weight 362.00 lb Heart Rate 93 /min BP Systolic 112 mmHg BP Diastolic 72 mmHg Respiratory Rate 20 /min Pain Level 0 O2 % BldC Oximetry 98 % BMI (Body Mass Index) 44.4 kg/m2 12/26/2016 Height 77 inches 6'5" Weight 348.00 lb Heart Rate 96 /min BP Systolic Sitting 140 mmHg BP Diastolic Sitting 80 mmHg Respiratory Rate 14 /min Body Temperature 97.7 F O2 % BldC Oximetry 97 % BMI (Body Mass Index) 41.3 kg/m2 11/29/2016 Height 77 inches 6'5" Weight 358.38 lb Heart Rate 96 /min BP Systolic Sitting 152 mmHg BP Diastolic Sitting 96 mmHg Respiratory Rate 16 /min Body Temperature 97.0 F BMI (Body Mass Index) 42.5 kg/m2 01/12/2016 Height 77 inches 6'5" Weight 374.00 lb Heart Rate 80 /min BP Systolic Sitting 138 mmHg BP Diastolic Sitting 90 mmHg Respiratory Rate 14 /min Body Temperature 97.9 F BMI (Body Mass Index) 44.3 kg/m2 12/01/2015 Height 77 inches 6'5" Weight 374.00 lb Heart Rate 85 /min BP Systolic Sitting 154 mmHg BP Diastolic Sitting 82 mmHg Respiratory Rate 18 /min O2 % BldC Oximetry 98 % BMI (Body Mass Index) 44.3 kg/m2 Neck Circumference in inches 18.5 12/01/2015 Height 77 inches 6'5" Weight 374.00 lb Heart Rate 80 /min BP Systolic Sitting 136 mmHg BP Diastolic Sitting 92 mmHg Respiratory Rate 14 /min Body Temperature 98.2 F BMI (Body Mass Index) 44.3 kg/m2 10/29/2015 Height 77 inches 6'5" Weight 369.38 lb Heart Rate 80 /min BP Systolic Sitting 152 mmHg BP Diastolic Sitting 80 mmHg Respiratory Rate 14 /min Body Temperature 97.3 F Pain Level 0 BMI (Body Mass Index) 43.8 kg/m2 10/09/2014 Height 77 inches 6'5" Weight 354.00 lb Heart Rate 82 /min BP Systolic 175 mmHg BP Diastolic 94 mmHg BMI (Body Mass Index) 42.0 kg/m2 Results Test Date Test Result H/L Range Note Wound Culture/Sensi 12/28/2017 Wound/Misc SEE RESULT BELOW 1 Culture-Gram Stain CBC Auto Diff 02/13/2017 White Blood Count 5.8 10^3/uL 3.5-10.8 2 Red Blood Count 3.77 10^6/uL Low 4.0-5.4 2 Hemoglobin 10.1 g/dL Low 14.0-18.0 2 Hematocrit 32 % Low 42-52 2 Mean Corpuscular Volume 85 fL 80-94 2 Mean Corpuscular Hemoglobin 27 pg 27-31 2 Mean Corpuscular HGB Conc 32 g/dL 31-36 2 Red Cell Distribution Width 16 % High 10.5-15 2 Platelet Count 161 10^3/uL 150-450 2 Mean Platelet Volume 10 um3 7.4-10.4 2 Abs Neutrophils 3.8 10^3/uL 1.5-7.7 2 Abs Lymphocytes 1.1 10^3/uL 1.0-4.8 2 Abs Monocytes 0.6 10^3/uL 0-0.8 2 Abs Eosinophils 0.3 10^3/uL 0-0.6 2 Abs Basophils 0 10^3/uL 0-0.2 2 Abs Nucleated RBC 0.01 10^3/uL 2 Granulocyte % 64.9 % 38-83 2 Lymphocyte % 19.6 % Low 25-47 2 Monocyte % 9.6 % High 1-9 2 Eosinophil % 5.4 % 0-6 2 Basophil % 0.5 % 0-2 2 Nucleated Red Blood Cells % 0.1 2 Comp Metabolic Panel 02/13/2017 Sodium 136 mmol/L 133-145 2 Potassium 4.7 mmol/L 3.5-5.0 2 Chloride 105 mmol/L 101-111 2 Co2 Carbon Dioxide 24 mmol/L 22-32 2 Anion Gap 7 mmol/L 2-11 2 Glucose 181 mg/dL High 70-100 2 Blood Urea Nitrogen 47 mg/dL High 6-24 2 Creatinine 2.44 mg/dL High 0.67-1.17 2 BUN/Creatinine Ratio 19.3 8-20 2 Calcium 8.5 mg/dL Low 8.6-10.3 2 Total Protein 5.7 g/dL Low 6.4-8.9 2 Albumin 3.1 g/dL Low 3.2-5.2 2 Globulin 2.6 g/dL 2-4 2 Albumin/Globulin Ratio 1.2 1-3 2 Total Bilirubin 0.30 mg/dL 0.2-1.0 2 Alkaline Phosphatase 67 U/L 34-104 2 Alt 8 U/L 7-52 2 Ast 14 U/L 13-39 2 Egfr Non- 28.4 >60 2 Egfr 36.5 >60 2, 3 Laboratory test finding 02/13/2017 C Reactive Protein 15.84 mg/L High &lt ; 5.00 2, 4 CBC Auto Diff 02/06/2017 White Blood Count 5.9 10^3/uL 3.5-10.8 Red Blood Count 3.36 10^6/uL Low 4.0-5.4 Hemoglobin 8.9 g/dL Low 14.0-18.0 Hematocrit 28 % Low 42-52 Mean Corpuscular Volume 85 fL 80-94 Mean Corpuscular Hemoglobin 27 pg 27-31 Mean Corpuscular HGB Conc 31 g/dL 31-36 Red Cell Distribution Width 16 % High 10.5-15 Platelet Count 184 10^3/uL 150-450 Mean Platelet Volume 9 um3 7.4-10.4 Abs Neutrophils 4.0 10^3/uL 1.5-7.7 Abs Lymphocytes 1.1 10^3/uL 1.0-4.8 Abs Monocytes 0.4 10^3/uL 0-0.8 Abs Eosinophils 0.3 10^3/uL 0-0.6 Abs Basophils 0 10^3/uL 0-0.2 Abs Nucleated RBC 0 10^3/uL Granulocyte % 67.9 % 38-83 Lymphocyte % 19.1 % Low 25-47 Monocyte % 7.1 % 1-9 Eosinophil % 5.3 % 0-6 Basophil % 0.6 % 0-2 Nucleated Red Blood Cells % 0.1 Comp Metabolic Panel 02/06/2017 Sodium 137 mmol/L 133-145 Potassium 4.7 mmol/L 3.5-5.0 Chloride 105 mmol/L 101-111 Co2 Carbon Dioxide 25 mmol/L 22-32 Anion Gap 7 mmol/L 2-11 Glucose 197 mg/dL High 70-100 Blood Urea Nitrogen 41 mg/dL High 6-24 Creatinine 2.61 mg/dL High 0.67-1.17 BUN/Creatinine Ratio 15.7 8-20 Calcium 9.1 mg/dL 8.6-10.3 Total Protein 5.9 g/dL Low 6.4-8.9 Albumin 3.1 g/dL Low 3.2-5.2 Globulin 2.8 g/dL 2-4 Albumin/Globulin Ratio 1.1 1-3 Total Bilirubin 0.30 mg/dL 0.2-1.0 Alkaline Phosphatase 68 U/L 34-104 Alt 8 U/L 7-52 Ast 13 U/L 13-39 Egfr Non- 26.2 >60 Egfr 33.8 >60 5 Laboratory test finding 02/06/2017 C Reactive Protein 4.87 mg/L < 5.00 6 Laboratory test finding 01/23/2017 Point of Care Glucose 203 mg/dL High 74 -106 7 Laboratory test finding 01/23/2017 Point of Care Glucose 118 mg/dL High 74 -106 8 Electrolytes 01/23/2017 Sodium 131 mmol/L Low 133-145 Potassium 5.3 mmol/L High 3.5-5.0 Chloride 102 mmol/L 101-111 Co2 Carbon Dioxide 23 mmol/L 22-32 Anion Gap 6 mmol/L 2-11 Laboratory test finding 01/23/2017 Blood Urea Nitrogen BUN 43 mg/dL High 6 -24 Creatinine 01/23/2017 Creatinine 3.01 mg/dL High 0.67-1.17 Egfr Non- 22.3 >60 Egfr 28.6 >60 9 Inr/Protime 01/23/2017 Inr 1.13 High 0.89-1.11 CBC Auto Diff 01/09/2017 White Blood Count 6.9 10^3/uL 3.5-10.8 10 Red Blood Count 3.38 10^6/uL Low 4.0-5.4 10 Hemoglobin 9.3 g/dL Low 14.0-18.0 10 Hematocrit 29 % Low 42-52 10 Mean Corpuscular Volume 86 fL 80-94 10 Mean Corpuscular Hemoglobin 28 pg 27-31 10 Mean Corpuscular HGB Conc 32 g/dL 31-36 10 Red Cell Distribution Width 15 % 10.5-15 10 Platelet Count 200 10^3/uL 150-450 10 Mean Platelet Volume 9 um3 7.4-10.4 10 Abs Neutrophils 5.1 10^3/uL 1.5-7.7 10 Abs Lymphocytes 0.9 10^3/uL Low 1.0-4.8 10 Abs Monocytes 0.7 10^3/uL 0-0.8 10 Abs Eosinophils 0.2 10^3/uL 0-0.6 10 Abs Basophils 0 10^3/uL 0-0.2 10 Abs Nucleated RBC 0.01 10^3/uL 10 Granulocyte % 73.7 % 38-83 10 Lymphocyte % 12.9 % Low 25-47 10 Monocyte % 10.4 % High 1-9 10 Eosinophil % 2.4 % 0-6 10 Basophil % 0.6 % 0-2 10 Nucleated Red Blood Cells % 0.1 10 Comp Metabolic Panel 01/09/2017 Sodium 135 mmol/L 133-145 10 Potassium 5.6 mmol/L High 3.5-5.0 10 Chloride 108 mmol/L 101-111 10 Co2 Carbon Dioxide 21 mmol/L Low 22-32 10 Anion Gap 6 mmol/L 2-11 10 Glucose 95 mg/dL 70-100 10 Blood Urea Nitrogen 54 mg/dL High 6-24 10 Creatinine 2.29 mg/dL High 0.67-1.17 10 BUN/Creatinine Ratio 23.6 High 8-20 10 Calcium 8.4 mg/dL Low 8.6-10.3 10 Total Protein 6.1 g/dL Low 6.4-8.9 10 Albumin 2.9 g/dL Low 3.2-5.2 10 Globulin 3.2 g/dL 2-4 10 Albumin/Globulin Ratio 0.9 Low 1-3 10 Total Bilirubin 0.20 mg/dL 0.2-1.0 10 Alkaline Phosphatase 94 U/L 34-104 10 Alt 11 U/L 7-52 10 Ast 13 U/L 13-39 10 Egfr Non- 30.5 >60 10 Egfr 39.3 >60 10, 11 Laboratory test 01/09/2017 C Reactive Protein 24.87 mg/L High < 5.00 10, 12 finding CBC Auto Diff 01/02/2017 White Blood Count 4.8 10^3/uL 3.5-10.8 13 Red Blood Count 3.28 10^6/uL Low 4.0-5.4 13 Hemoglobin 9.1 g/dL Low 14.0-18.0 13 Hematocrit 29 % Low 42-52 13 Mean Corpuscular Volume 87 fL 80-94 13 Mean Corpuscular Hemoglobin 28 pg 27-31 13 Mean Corpuscular HGB Conc 32 g/dL 31-36 13 Red Cell Distribution Width 15 % 10.5-15 13 Platelet Count 179 10^3/uL 150-450 13 Mean Platelet Volume 9 um3 7.4-10.4 13 Abs Neutrophils 3.3 10^3/uL 1.5-7.7 13 Abs Lymphocytes 0.8 10^3/uL Low 1.0-4.8 13 Abs Monocytes 0.5 10^3/uL 0-0.8 13 Abs Eosinophils 0.2 10^3/uL 0-0.6 13 Abs Basophils 0 10^3/uL 0-0.2 13 Abs Nucleated RBC 0 10^3/uL 13 Granulocyte % 68.6 % 38-83 13 Lymphocyte % 16.6 % Low 25-47 13 Monocyte % 11.1 % High 1-9 13 Eosinophil % 3.2 % 0-6 13 Basophil % 0.5 % 0-2 13 Nucleated Red Blood Cells % 0 13 Laboratory test 01/02/2017 C Reactive Protein 26.73 mg/L High < 5.00 13, 14 finding Comp Metabolic Panel 01/02/2017 Sodium 134 mmol/L 133-145 13 Potassium 5.1 mmol/L High 3.5-5.0 13 Chloride 106 mmol/L 101-111 13 Co2 Carbon Dioxide 22 mmol/L 22-32 13 Anion Gap 6 mmol/L 2-11 13 Glucose 171 mg/dL High 70-100 13 Blood Urea Nitrogen 50 mg/dL High 6-24 13 Creatinine 2.16 mg/dL High 0.67-1.17 13 BUN/Creatinine Ratio 23.1 High 8-20 13 Calcium 8.6 mg/dL 8.6-10.3 13 Total Protein 6.0 g/dL Low 6.4-8.9 13 Albumin 2.9 g/dL Low 3.2-5.2 13 Globulin 3.1 g/dL 2-4 13 Albumin/Globulin Ratio 0.9 Low 1-3 13 Total Bilirubin 0.20 mg/dL 0.2-1.0 13 Alkaline Phosphatase 114 U/L High 34-104 13 Alt 24 U/L 7-52 13 Ast 22 U/L 13-39 13 Egfr Non- 32.7 >60 13 Egfr 42.0 >60 13, 15 CBC Auto Diff 12/27/2016 White Blood Count 6.6 10^3/uL 3.5-10.8 Red Blood Count 3.29 10^6/uL Low 4.0-5.4 Hemoglobin 9.1 g/dL Low 14.0-18.0 Hematocrit 28 % Low 42-52 Mean Corpuscular Volume 87 fL 80-94 Mean Corpuscular Hemoglobin 28 pg 27-31 Mean Corpuscular HGB Conc 32 g/dL 31-36 Red Cell Distribution Width 15 % 10.5-15 Platelet Count 242 10^3/uL 150-450 Mean Platelet Volume 8 um3 7.4-10.4 Abs Neutrophils 4.7 10^3/uL 1.5-7.7 Abs Lymphocytes 1.2 10^3/uL 1.0-4.8 Abs Monocytes 0.6 10^3/uL 0-0.8 Abs Eosinophils 0.1 10^3/uL 0-0.6 Abs Basophils 0 10^3/uL 0-0.2 Abs Nucleated RBC 0 10^3/uL Granulocyte % 70.7 % 38-83 Lymphocyte % 18.1 % Low 25-47 Monocyte % 9.4 % High 1-9 Eosinophil % 1.1 % 0-6 Basophil % 0.7 % 0-2 Nucleated Red Blood Cells % 0 Comp Metabolic Panel 12/27/2016 Sodium 134 mmol/L 133-145 Potassium 5.2 mmol/L High 3.5-5.0 Chloride 104 mmol/L 101-111 Co2 Carbon Dioxide 23 mmol/L 22-32 Anion Gap 7 mmol/L 2-11 Glucose 52 mg/dL Low 70-100 Blood Urea Nitrogen 68 mg/dL High 6-24 Creatinine 2.48 mg/dL High 0.67-1.17 BUN/Creatinine Ratio 27.4 High 8-20 Calcium 9.0 mg/dL 8.6-10.3 Total Protein 6.7 g/dL 6.4-8.9 Albumin 3.3 g/dL 3.2-5.2 Globulin 3.4 g/dL 2-4 Albumin/Globulin Ratio 1.0 1-3 Total Bilirubin 0.20 mg/dL 0.2-1.0 Alkaline Phosphatase 80 U/L 34-104 Alt 14 U/L 7-52 Ast 19 U/L 13-39 Egfr Non- 27.8 >60 Egfr 35.8 >60 16 Laboratory test finding 12/27/2016 C Reactive Protein 21.08 mg/L High &lt ; 5.00 17 CBC Auto Diff 12/12/2016 White Blood Count 6.7 10^3/uL 3.5-10.8 18 Red Blood Count 3.25 10^6/uL Low 4.0-5.4 18 Hemoglobin 9.1 g/dL Low 14.0-18.0 18 Hematocrit 28 % Low 42-52 18 Mean Corpuscular Volume 86 fL 80-94 18 Mean Corpuscular Hemoglobin 28 pg 27-31 18 Mean Corpuscular HGB Conc 33 g/dL 31-36 18 Red Cell Distribution Width 14 % 10.5-15 18 Platelet Count 239 10^3/uL 150-450 18 Mean Platelet Volume 8 um3 7.4-10.4 18 Abs Neutrophils 4.3 10^3/uL 1.5-7.7 18 Abs Lymphocytes 1.2 10^3/uL 1.0-4.8 18 Abs Monocytes 0.9 10^3/uL High 0-0.8 18 Abs Eosinophils 0.2 10^3/uL 0-0.6 18 Abs Basophils 0 10^3/uL 0-0.2 18 Abs Nucleated RBC 0.01 10^3/uL 18 Granulocyte % 64.9 % 38-83 18 Lymphocyte % 18.3 % Low 25-47 18 Monocyte % 13.6 % High 1-9 18 Eosinophil % 2.5 % 0-6 18 Basophil % 0.7 % 0-2 18 Nucleated Red Blood Cells % 0.1 18 Comp Metabolic Panel 12/12/2016 Sodium 136 mmol/L 133-145 18 Potassium 5.7 mmol/L High 3.5-5.0 18 Chloride 100 mmol/L Low 101-111 18 Co2 Carbon Dioxide 26 mmol/L 22-32 18 Anion Gap 10 mmol/L 2-11 18 Glucose 209 mg/dL High 70-100 18 Blood Urea Nitrogen 50 mg/dL High 6-24 18 Creatinine 2.90 mg/dL High 0.67-1.17 18 BUN/Creatinine Ratio 17.2 8-20 18 Calcium 8.9 mg/dL 8.6-10.3 18 Total Protein 6.9 g/dL 6.4-8.9 18 Albumin 3.1 g/dL Low 3.2-5.2 18 Globulin 3.8 g/dL 2-4 18 Albumin/Globulin Ratio 0.8 Low 1-3 18 Total Bilirubin 0.30 mg/dL 0.2-1.0 18 Alkaline Phosphatase 91 U/L 34-104 18 Alt 13 U/L 7-52 18 Ast 15 U/L 13-39 18 Egfr Non- 23.2 >60 18 Egfr 29.9 >60 18, 19 Laboratory test 12/12/2016 C Reactive Protein 139.43 mg/L High < 5.00 18, 20 finding Basic Metabolic Panel 12/09/2016 Sodium 133 mmol/L 133-145 Potassium 5.2 mmol/L High 3.5-5.0 Chloride 103 mmol/L 101-111 Co2 Carbon Dioxide 22 mmol/L 22-32 Anion Gap 8 mmol/L 2-11 Glucose 155 mg/dL High 70-100 Blood Urea Nitrogen 56 mg/dL High 6-24 Creatinine 3.01 mg/dL High 0.67-1.17 BUN/Creatinine Ratio 18.6 8-20 Calcium 8.6 mg/dL 8.6-10.3 Egfr Non- 22.3 >60 Egfr 28.6 >60 21 CBC Auto Diff 12/06/2016 White Blood Count 7.0 10^3/uL 3.5-10.8 22 Red Blood Count 3.03 10^6/uL Low 4.0-5.4 22 Hemoglobin 8.4 g/dL Low 14.0-18.0 22 Hematocrit 26 % Low 42-52 22 Mean Corpuscular Volume 87 fL 80-94 22 Mean Corpuscular Hemoglobin 28 pg 27-31 22 Mean Corpuscular HGB Conc 32 g/dL 31-36 22 Red Cell Distribution Width 14 % 10.5-15 22 Platelet Count 153 10^3/uL 150-450 22 Mean Platelet Volume 9 um3 7.4-10.4 22 Abs Neutrophils 4.9 10^3/uL 1.5-7.7 22 Abs Lymphocytes 1.0 10^3/uL 1.0-4.8 22 Abs Monocytes 0.8 10^3/uL 0-0.8 22 Abs Eosinophils 0.2 10^3/uL 0-0.6 22 Abs Basophils 0.1 10^3/uL 0-0.2 22 Abs Nucleated RBC 0 10^3/uL 22 Granulocyte % 70.0 % 38-83 22 Lymphocyte % 14.6 % Low 25-47 22 Monocyte % 11.9 % High 1-9 22 Eosinophil % 2.8 % 0-6 22 Basophil % 0.7 % 0-2 22 Nucleated Red Blood Cells % 0 22 Comp Metabolic Panel 12/06/2016 Sodium 131 mmol/L Low 133-145 22 Potassium 5.3 mmol/L High 3.5-5.0 22 Chloride 103 mmol/L 101-111 22 Co2 Carbon Dioxide 23 mmol/L 22-32 22 Anion Gap 5 mmol/L 2-11 22 Glucose 254 mg/dL High 70-100 22 Blood Urea Nitrogen 55 mg/dL High 6-24 22 Creatinine 3.08 mg/dL High 0.67-1.17 22 BUN/Creatinine Ratio 17.9 8-20 22 Calcium 8.2 mg/dL Low 8.6-10.3 22 Total Protein 5.6 g/dL Low 6.4-8.9 22 Albumin 2.7 g/dL Low 3.2-5.2 22 Globulin 2.9 g/dL 2-4 22 Albumin/Globulin Ratio 0.9 Low 1-3 22 Total Bilirubin 0.20 mg/dL 0.2-1.0 22 Alkaline Phosphatase 70 U/L 34-104 22 Alt 9 U/L 7-52 22 Ast 10 U/L Low 13-39 22 Egfr Non- 21.7 >60 22 Egfr 27.9 >60 22, 23 Laboratory test 12/06/2016 C Reactive Protein 147.38 mg/L High < 5.00 22, 24 finding Vancomycin Trough 15.5 g/mL 22, 25 Comp Metabolic Panel 11/29/2016 Sodium 134 mmol/L 133-145 Chloride 106 mmol/L 101-111 Co2 Carbon Dioxide 24 mmol/L 22-32 Glucose 264 mg/dL High 70-100 Blood Urea Nitrogen 53 mg/dL High 6-24 Creatinine 2.56 mg/dL High 0.67-1.17 BUN/Creatinine Ratio 20.7 High 8-20 Calcium 9.0 mg/dL 8.6-10.3 Total Protein 6.4 g/dL 6.4-8.9 Albumin 3.2 g/dL 3.2-5.2 Globulin 3.2 g/dL 2-4 Albumin/Globulin Ratio 1.0 1-3 Total Bilirubin 0.30 mg/dL 0.2-1.0 Alkaline Phosphatase 86 U/L 34-104 Alt 13 U/L 7-52 Ast 15 U/L 13-39 Egfr Non- 26.8 >60 Egfr 34.5 >60 26 Potassium 6.1 mmol/L High 3.5-5.0 27 Anion Gap 4 mmol/L 2-11 Laboratory test finding 11/29/2016 C Reactive Protein 12.87 mg/L High &lt ; 5.00 28 Hemoglobin A1c (Glyco HGB) 11.2 % High Less than 6.0 29 CBC Auto Diff 11/29/2016 White Blood Count 6.6 10^3/uL 3.5-10.8 Red Blood Count 3.79 10^6/uL Low 4.0-5.4 Hemoglobin 10.6 g/dL Low 14.0-18.0 Hematocrit 33 % Low 42-52 Mean Corpuscular Volume 87 fL 80-94 Mean Corpuscular Hemoglobin 28 pg 27-31 Mean Corpuscular HGB Conc 32 g/dL 31-36 Red Cell Distribution Width 14 % 10.5-15 Platelet Count 215 10^3/uL 150-450 Mean Platelet Volume 9 um3 7.4-10.4 Abs Neutrophils 4.6 10^3/uL 1.5-7.7 Abs Lymphocytes 1.2 10^3/uL 1.0-4.8 Abs Monocytes 0.6 10^3/uL 0-0.8 Abs Eosinophils 0.1 10^3/uL 0-0.6 Abs Basophils 0 10^3/uL 0-0.2 Abs Nucleated RBC 0.01 10^3/uL Granulocyte % 69.5 % 38-83 Lymphocyte % 18.5 % Low 25-47 Monocyte % 9.1 % High 1-9 Eosinophil % 2.2 % 0-6 Basophil % 0.7 % 0-2 Nucleated Red Blood Cells % 0.2 Laboratory test finding 11/29/2016 Erythrocyte Sed Rate 118 mm/Hr High 0- 14 CBC Auto Diff 12/21/2015 White Blood Count 5.2 10^3/uL 3.5-10.8 Red Blood Count 4.11 10^6/uL 4.0-5.4 Hemoglobin 11.5 g/dL Low 14.0-18.0 Hematocrit 36 % Low 42-52 Mean Corpuscular Volume 87 fL 80-94 Mean Corpuscular Hemoglobin 28 pg 27-31 Mean Corpuscular HGB Conc 32 g/dL 31-36 Red Cell Distribution Width 15 % 10.5-15 Platelet Count 162 10^3/uL 150-450 Mean Platelet Volume 9 um3 7.4-10.4 Abs Neutrophils 3.3 10^3/uL 1.5-7.7 Abs Lymphocytes 1.0 10^3/uL 1.0-4.8 Abs Monocytes 0.7 10^3/uL 0-0.8 Abs Eosinophils 0.2 10^3/uL 0-0.6 Abs Basophils 0 10^3/uL 0-0.2 Abs Nucleated RBC 0 10^3/uL Granulocyte % 63.2 % 38-83 Lymphocyte % 18.9 % Low 25-47 Monocyte % 12.6 % High 1-9 Eosinophil % 4.5 % 0-6 Basophil % 0.8 % 0-2 Nucleated Red Blood Cells % 0 Comp Metabolic Panel 12/21/2015 Sodium 136 mmol/L 133-145 Potassium 4.8 mmol/L 3.5-5.0 Chloride 103 mmol/L 101-111 Co2 Carbon Dioxide 26 mmol/L 22-32 Anion Gap 7 mmol/L 2-11 Glucose 151 mg/dL High 70-100 Blood Urea Nitrogen 38 mg/dL High 6-24 Creatinine 2.64 mg/dL High 0.67-1.17 BUN/Creatinine Ratio 14.4 8-20 Calcium 8.6 mg/dL 8.6-10.3 Total Protein 5.7 g/dL Low 6.4-8.9 Albumin 3.2 g/dL 3.2-5.2 Globulin 2.5 g/dL 2-4 Albumin/Globulin Ratio 1.3 1-3 Total Bilirubin 0.40 mg/dL 0.2-1.0 Alkaline Phosphatase 78 U/L 34-104 Alt 15 U/L 7-52 Ast 16 U/L 13-39 Egfr Non- 26.0 >60 Egfr 33.5 >60 30 Laboratory test finding 12/21/2015 Vancomycin Trough 15.8 g/mL C Reactive Protein 4.19 mg/L < 5.00 31 CBC Auto Diff 12/15/2015 White Blood Count 4.8 10^3/uL 3.5-10.8 Red Blood Count 3.98 10^6/uL Low 4.0-5.4 Hemoglobin 11.3 g/dL Low 14.0-18.0 Hematocrit 35 % Low 42-52 Mean Corpuscular Volume 87 fL 80-94 Mean Corpuscular Hemoglobin 28 pg 27-31 Mean Corpuscular HGB Conc 32 g/dL 31-36 Red Cell Distribution Width 15 % 10.5-15 Platelet Count 161 10^3/uL 150-450 Mean Platelet Volume 9 um3 7.4-10.4 Abs Neutrophils 3.0 10^3/uL 1.5-7.7 Abs Lymphocytes 0.9 10^3/uL Low 1.0-4.8 Abs Monocytes 0.6 10^3/uL 0-0.8 Abs Eosinophils 0.2 10^3/uL 0-0.6 Abs Basophils 0.1 10^3/uL 0-0.2 Abs Nucleated RBC 0 10^3/uL Granulocyte % 63.4 % 38-83 Lymphocyte % 17.9 % Low 25-47 Monocyte % 12.9 % High 1-9 Eosinophil % 4.5 % 0-6 Basophil % 1.3 % 0-2 Nucleated Red Blood Cells % 0 Comp Metabolic Panel 12/15/2015 Sodium 138 mmol/L 133-145 Potassium 4.6 mmol/L 3.5-5.0 Chloride 104 mmol/L 101-111 Co2 Carbon Dioxide 27 mmol/L 22-32 Anion Gap 7 mmol/L 2-11 Glucose 123 mg/dL High 70-100 Blood Urea Nitrogen 37 mg/dL High 6-24 Creatinine 2.50 mg/dL High 0.67-1.17 BUN/Creatinine Ratio 14.8 8-20 Calcium 8.7 mg/dL 8.6-10.3 Total Protein 5.8 g/dL Low 6.4-8.9 Albumin 3.4 g/dL 3.2-5.2 Globulin 2.4 g/dL 2-4 Albumin/Globulin Ratio 1.4 1-3 Total Bilirubin 0.40 mg/dL 0.2-1.0 Alkaline Phosphatase 72 U/L 34-104 Alt 13 U/L 7-52 Ast 14 U/L 13-39 Egfr Non- 27.7 >60 Egfr 35.6 >60 32 Laboratory test finding 12/15/2015 Vancomycin Trough 21.9 g/mL C Reactive Protein 7.69 mg/L High < 5.00 33 CBC Auto Diff 12/07/2015 White Blood Count 4.2 10^3/uL 3.5-10.8 Red Blood Count 3.62 10^6/uL Low 4.0-5.4 Hemoglobin 10.3 g/dL Low 14.0-18.0 Hematocrit 32 % Low 42-52 Mean Corpuscular Volume 87 fL 80-94 Mean Corpuscular Hemoglobin 28 pg 27-31 Mean Corpuscular HGB Conc 33 g/dL 31-36 Red Cell Distribution Width 16 % High 10.5-15 Platelet Count 150 10^3/uL 150-450 Mean Platelet Volume 10 um3 7.4-10.4 Abs Neutrophils 2.5 10^3/uL 1.5-7.7 Abs Lymphocytes 0.9 10^3/uL Low 1.0-4.8 Abs Monocytes 0.6 10^3/uL 0-0.8 Abs Eosinophils 0.2 10^3/uL 0-0.6 Abs Basophils 0 10^3/uL 0-0.2 Abs Nucleated RBC 0 10^3/uL Granulocyte % 61.0 % 38-83 Lymphocyte % 20.6 % Low 25-47 Monocyte % 13.3 % High 1-9 Eosinophil % 4.5 % 0-6 Basophil % 0.6 % 0-2 Nucleated Red Blood Cells % 0.1 Comp Metabolic Panel 12/07/2015 Sodium 137 mmol/L 133-145 Potassium 4.7 mmol/L 3.5-5.0 Chloride 106 mmol/L 101-111 Co2 Carbon Dioxide 25 mmol/L 22-32 Anion Gap 6 mmol/L 2-11 Glucose 192 mg/dL High 70-100 Blood Urea Nitrogen 29 mg/dL High 6-24 Creatinine 2.27 mg/dL High 0.67-1.17 BUN/Creatinine Ratio 12.8 8-20 Calcium 8.7 mg/dL 8.6-10.3 Total Protein 5.7 g/dL Low 6.4-8.9 Albumin 3.2 g/dL 3.2-5.2 Globulin 2.5 g/dL 2-4 Albumin/Globulin Ratio 1.3 1-3 Total Bilirubin 0.30 mg/dL 0.2-1.0 Alkaline Phosphatase 76 U/L 34-104 Alt 13 U/L 7-52 Ast 16 U/L 13-39 Egfr Non- 31.0 >60 Egfr 39.8 >60 34 Laboratory test finding 12/07/2015 Vancomycin Trough 18.2 g/mL C Reactive Protein 8.83 mg/L High < 5.00 35 CBC Auto Diff 11/30/2015 White Blood Count 4.1 10^3/uL 3.5-10.8 Red Blood Count 3.59 10^6/uL Low 4.0-5.4 Hemoglobin 10.1 g/dL Low 14.0-18.0 Hematocrit 31 % Low 42-52 Mean Corpuscular Volume 87 fL 80-94 Mean Corpuscular Hemoglobin 28 pg 27-31 Mean Corpuscular HGB Conc 32 g/dL 31-36 Red Cell Distribution Width 16 % High 10.5-15 Platelet Count 141 10^3/uL Low 150-450 Mean Platelet Volume 9 um3 7.4-10.4 Abs Neutrophils 2.6 10^3/uL 1.5-7.7 Abs Lymphocytes 0.8 10^3/uL Low 1.0-4.8 Abs Monocytes 0.5 10^3/uL 0-0.8 Abs Eosinophils 0.3 10^3/uL 0-0.6 Abs Basophils 0 10^3/uL 0-0.2 Abs Nucleated RBC 0 10^3/uL Granulocyte % 61.8 % 38-83 Lymphocyte % 19.7 % Low 25-47 Monocyte % 11.5 % High 1-9 Eosinophil % 6.1 % High 0-6 Basophil % 0.9 % 0-2 Nucleated Red Blood Cells % 0 Comp Metabolic Panel 11/30/2015 Sodium 136 mmol/L 133-145 Potassium 4.8 mmol/L 3.5-5.0 Chloride 103 mmol/L 101-111 Co2 Carbon Dioxide 26 mmol/L 22-32 Anion Gap 7 mmol/L 2-11 Glucose 318 mg/dL High 70-100 Blood Urea Nitrogen 33 mg/dL High 6-24 Creatinine 2.36 mg/dL High 0.67-1.17 BUN/Creatinine Ratio 14.0 8-20 Calcium 8.5 mg/dL Low 8.6-10.3 Total Protein 5.6 g/dL Low 6.4-8.9 Albumin 3.1 g/dL Low 3.2-5.2 Globulin 2.5 g/dL 2-4 Albumin/Globulin Ratio 1.2 1-3 Total Bilirubin 0.30 mg/dL 0.2-1.0 Alkaline Phosphatase 74 U/L 34-104 Alt 11 U/L 7-52 Ast 12 U/L Low 13-39 Egfr Non- 29.6 >60 Egfr 38.1 >60 36 Laboratory test finding 11/30/2015 Vancomycin Trough 16.7 g/mL C Reactive Protein 4.80 mg/L < 5.00 37 TSH (Thyroid Stim Horm) 1.35 ?IU/mL 0.34-5.60 T3 Total 0.80 ng/mL Low 0.87-1.78 CBC Auto Diff 11/23/2015 White Blood Count 4.4 10^3/uL 3.5-10.8 Red Blood Count 3.48 10^6/uL Low 4.0-5.4 Hemoglobin 10.0 g/dL Low 14.0-18.0 Hematocrit 30 % Low 42-52 Mean Corpuscular Volume 87 fL 80-94 Mean Corpuscular Hemoglobin 29 pg 27-31 Mean Corpuscular HGB Conc 33 g/dL 31-36 Red Cell Distribution Width 17 % High 10.5-15 Platelet Count 161 10^3/uL 150-450 Mean Platelet Volume 9 um3 7.4-10.4 Abs Neutrophils 2.7 10^3/uL 1.5-7.7 Abs Lymphocytes 0.8 10^3/uL Low 1.0-4.8 Abs Monocytes 0.6 10^3/uL 0-0.8 Abs Eosinophils 0.3 10^3/uL 0-0.6 Abs Basophils 0 10^3/uL 0-0.2 Abs Nucleated RBC 0 10^3/uL Granulocyte % 61.6 % 38-83 Lymphocyte % 18.4 % Low 25-47 Monocyte % 12.7 % High 1-9 Eosinophil % 6.7 % High 0-6 Basophil % 0.6 % 0-2 Nucleated Red Blood Cells % 0.1 Basic Metabolic Panel 11/23/2015 Sodium 132 mmol/L Low 133-145 Potassium 4.8 mmol/L 3.5-5.0 Chloride 103 mmol/L 101-111 Co2 Carbon Dioxide 23 mmol/L 22-32 Anion Gap 6 mmol/L 2-11 Glucose 369 mg/dL High 70-100 Blood Urea Nitrogen 36 mg/dL High 6-24 Creatinine 2.61 mg/dL High 0.67-1.17 BUN/Creatinine Ratio 13.8 8-20 Calcium 8.1 mg/dL Low 8.6-10.3 Egfr Non- 26.4 >60 Egfr 33.9 >60 38 Laboratory test finding 11/23/2015 Vancomycin Trough 14.7 g/mL C Reactive Protein 7.00 mg/L High < 5.00 39 Basic Metabolic Panel 11/16/2015 Sodium 138 mmol/L 133-145 Potassium 4.5 mmol/L 3.5-5.0 Chloride 107 mmol/L 101-111 Co2 Carbon Dioxide 24 mmol/L 22-32 Anion Gap 7 mmol/L 2-11 Glucose 136 mg/dL High 70-100 Blood Urea Nitrogen 35 mg/dL High 6-24 Creatinine 1.79 mg/dL High 0.67-1.17 BUN/Creatinine Ratio 19.6 8-20 Egfr Non- 40.7 >60 Egfr 52.4 >60 40 Calcium 8.4 mg/dL Low 8.6-10.3 Laboratory test finding 11/16/2015 Vancomycin Trough 17.2 g/mL Laboratory test finding 11/13/2015 Vancomycin Trough 26.2 g/mL 41 C Reactive Protein 7.37 mg/L High < 5.00 42 Comp Metabolic Panel 11/13/2015 Sodium 137 mmol/L 133-145 Potassium 4.8 mmol/L 3.5-5.0 Chloride 107 mmol/L 101-111 Co2 Carbon Dioxide 23 mmol/L 22-32 Anion Gap 7 mmol/L 2-11 Glucose 133 mg/dL High 70-100 Blood Urea Nitrogen 39 mg/dL High 6-24 Creatinine 1.75 mg/dL High 0.67-1.17 BUN/Creatinine Ratio 22.3 High 8-20 Calcium 8.4 mg/dL Low 8.6-10.3 Total Protein 5.5 g/dL Low 6.4-8.9 Albumin 3.0 g/dL Low 3.2-5.2 Globulin 2.5 g/dL 2-4 Albumin/Globulin Ratio 1.2 1-3 Total Bilirubin 0.30 mg/dL 0.2-1.0 Alkaline Phosphatase 81 U/L 34-104 Alt 17 U/L 7-52 Ast 18 U/L 13-39 Egfr Non- 41.8 >60 Egfr 53.8 >60 43 CBC Auto Diff 11/13/2015 White Blood Count 4.8 10^3/uL 3.5-10.8 Red Blood Count 3.49 10^6/uL Low 4.0-5.4 Hemoglobin 9.9 g/dL Low 14.0-18.0 Hematocrit 30 % Low 42-52 Mean Corpuscular Volume 86 fL 80-94 Mean Corpuscular Hemoglobin 28 pg 27-31 Mean Corpuscular HGB Conc 33 g/dL 31-36 Red Cell Distribution Width 17 % High 10.5-15 Platelet Count 142 10^3/uL Low 150-450 Mean Platelet Volume 9 um3 7.4-10.4 Abs Neutrophils 3.1 10^3/uL 1.5-7.7 Abs Lymphocytes 0.9 10^3/uL Low 1.0-4.8 Abs Monocytes 0.5 10^3/uL 0-0.8 Abs Eosinophils 0.3 10^3/uL 0-0.6 Abs Basophils 0 10^3/uL 0-0.2 Abs Nucleated RBC 0.01 10^3/uL Granulocyte % 64.7 % 38-83 Lymphocyte % 19.0 % Low 25-47 Monocyte % 9.7 % High 1-9 Eosinophil % 5.6 % 0-6 Basophil % 1.0 % 0-2 Nucleated Red Blood Cells % 0.2 Laboratory test finding 10/29/2015 Wound Culture/Sensi SEE RESULT BELOW 44 Comp Metabolic Panel 10/29/2015 Sodium 133 mmol/L 133-145 Potassium 5.2 mmol/L High 3.5-5.0 Chloride 103 mmol/L 101-111 Co2 Carbon Dioxide 24 mmol/L 22-32 Anion Gap 6 mmol/L 2-11 Glucose 126 mg/dL High 70-100 Blood Urea Nitrogen 29 mg/dL High 6-24 Creatinine 1.42 mg/dL High 0.67-1.17 BUN/Creatinine Ratio 20.4 High 8-20 Calcium 8.9 mg/dL 8.6-10.3 Total Protein 6.1 g/dL Low 6.4-8.9 Albumin 3.2 g/dL 3.2-5.2 Globulin 2.9 g/dL 2-4 Albumin/Globulin Ratio 1.1 1-3 Total Bilirubin 0.40 mg/dL 0.2-1.0 Alkaline Phosphatase 108 U/L High 34-104 Alt 29 U/L 7-52 Ast 23 U/L 13-39 Egfr Non- 53.2 >60 Egfr 68.4 >60 45 CBC Auto Diff 10/29/2015 White Blood Count 4.9 10^3/uL 3.5-10.8 Red Blood Count 3.91 10^6/uL Low 4.0-5.4 Hemoglobin 10.9 g/dL Low 14.0-18.0 Hematocrit 34 % Low 42-52 Mean Corpuscular Volume 86 fL 80-94 Mean Corpuscular Hemoglobin 28 pg 27-31 Mean Corpuscular HGB Conc 32 g/dL 31-36 Red Cell Distribution Width 17 % High 10.5-15 Platelet Count 159 10^3/uL 150-450 Mean Platelet Volume 9 um3 7.4-10.4 Abs Neutrophils 3.0 10^3/uL 1.5-7.7 Abs Lymphocytes 1.2 10^3/uL 1.0-4.8 Abs Monocytes 0.5 10^3/uL 0-0.8 Abs Eosinophils 0.2 10^3/uL 0-0.6 Abs Basophils 0 10^3/uL 0-0.2 Abs Nucleated RBC 0 10^3/uL Granulocyte % 61.8 % 38-83 Lymphocyte % 23.7 % Low 25-47 Monocyte % 10.2 % High 1-9 Eosinophil % 3.5 % 0-6 Basophil % 0.8 % 0-2 Nucleated Red Blood Cells % 0.1 Laboratory test finding 10/29/2015 C Reactive Protein 6.00 mg/L High < 5.00 46 1 SEE RESULT BELOW Name: AMMON GALO : [address]: Ashley GEORGE Acct: [id number] Unit: [id number] AGE: 52 Location: [facility] Re12/28/17 SEX: M Status: REG REF SPEC: [id number] MARY: 12/28/17-[address]: Ashley GEORGE REQ: [id number] RECD: 12/28/17 STATUS: COMP _ SOURCE: MISC SOURC SPDESC:OTHER ORDERED: Culture Stain COMMENTS: Source: Right Foot per Praveena Mota RN.; [id number] Procedure Result Reported Site Wound/Misc Gram Stain Final 12/29/17- 0744 ML 2+ Epithelial Cells No Neutrophils Observed 4+ Gram Positive Cocci Wound/Misc Culture Final 12/30/17- 1021 ML Organism 1 STAPHYLOCOCCUS AUREUS Quantity 2+ Organism 2 NORMAL CHRISTELLE Quantity 2+ 1. STAPHYLOCOCCUS AUREUS M.I.C. RX --------- ------ Penicillin >=0.5 R Clindamycin <=0.25 S Erythromycin >=8 R Gentamicin <=0.5 S Linezolid 2 S Oxacillin 0.5 S * Quinupristin/Dalfopristin <=0.25 S Rifampin <=0.5 S Tetracycline <=1 S Doxycycline - Deduced S * Minocycline - Deduced S Trimethoprim/Sulfamethoxazole <=10 S CONTINUED ON NEXT PAGE DEPARTMENT OF PATHOLOGY, [address] [place] [address] Dayne Pires M.D. Director [facility] # [id number] Patient: AMMON GALO [id number] (Continued) Specimen: [id number] Collected: 12/28/17 Received: 12/28/17 (Continued) Procedure Result Reported Site Wound/Misc Culture Final (continued) 12/30/17- 1021 1. STAPHYLOCOCCUS AUREUS (continued) M.I.C. RX --------- ------ Vancomycin <=0.5 S Imipenem-Deduced S * Ampicillin/Sulbactam-Deduced S Cefazolin-Deduced S * These antibiotics are not available in the [facility] Formulary Contact the Microbiology Department for any additional antibiotic reporting. * ML - Main Lab . END OF REPORT DEPARTMENT OF PATHOLOGY, [address] [place] [address] Dayne Pires M.D. Director [facility] # [id number] Because ethnic data is not always readily available, this report includes an eGFR for both -Americans and non- Americans. The National Kidney Disease Education Program (NKDEP) does not endorse the use of the MDRD equation for patients that are not between the ages of 18 and 70, are , have extremes of body size, muscle mass, or nutritional status, or are non- or non-. According to the National Kidney Foundation, irrespective of diagnosis, the stage of the disease is based on the level of kidney function: Stage Description GFR(mL/min/1.73 m(2)) 1 Kidney damage with normal or decreased GFR 90 2 Kidney damage with mild decrease in GFR 60-89 3 Moderate decrease in GFR 30-59 4 Severe decrease in GFR 15-29 5 Kidney failure <15 (or dialysis) 4 Acute inflammation: >10.00 5 Because ethnic data is not always readily available, this report includes an eGFR for both -Americans and non- Americans. The National Kidney Disease Education Program (NKDEP) does not endorse the use of the MDRD equation for patients that are not between the ages of 18 and 70, are , have extremes of body size, muscle mass, or nutritional status, or are non- or non-. According to the National Kidney Foundation, irrespective of diagnosis, the stage of the disease is based on the level of kidney function: Stage Description GFR(mL/min/1.73 m(2)) 1 Kidney damage with normal or decreased GFR 90 2 Kidney damage with mild decrease in GFR 60-89 3 Moderate decrease in GFR 30-59 4 Severe decrease in GFR 15-29 5 Kidney failure <15 (or dialysis) 6 Acute inflammation: >10.00 7 Marketing Agent: [id number] Marketing Agent: [id number] 9 Because ethnic data is not always readily available, this report includes an eGFR for both -Americans and non- Americans. The National Kidney Disease Education Program (NKDEP) does not endorse the use of the MDRD equation for patients that are not between the ages of 18 and 70, are , have extremes of body size, muscle mass, or nutritional status, or are non- or non-. According to the National Kidney Foundation, irrespective of diagnosis, the stage of the disease is based on the level of kidney function: Stage Description GFR(mL/min/1.73 m(2)) 1 Kidney damage with normal or decreased GFR 90 2 Kidney damage with mild decrease in GFR 60-89 3 Moderate decrease in GFR 30-59 4 Severe decrease in GFR 15-29 5 Kidney failure <15 (or dialysis) 10 [id number] 11 Because ethnic data is not always readily available, this report includes an eGFR for both -Americans and non- Americans. The National Kidney Disease Education Program (NKDEP) does not endorse the use of the MDRD equation for patients that are not between the ages of 18 and 70, are , have extremes of body size, muscle mass, or nutritional status, or are non- or non-. According to the National Kidney Foundation, irrespective of diagnosis, the stage of the disease is based on the level of kidney function: Stage Description GFR(mL/min/1.73 m(2)) 1 Kidney damage with normal or decreased GFR 90 2 Kidney damage with mild decrease in GFR 60-89 3 Moderate decrease in GFR 30-59 4 Severe decrease in GFR 15-29 5 Kidney failure <15 (or dialysis) 12 Acute inflammation: >10.00 13 [id number] Acute inflammation: >10.00 15 Because ethnic data is not always readily available, this report includes an eGFR for both -Americans and non- Americans. The National Kidney Disease Education Program (NKDEP) does not endorse the use of the MDRD equation for patients that are not between the ages of 18 and 70, are , have extremes of body size, muscle mass, or nutritional status, or are non- or non-. According to the National Kidney Foundation, irrespective of diagnosis, the stage of the disease is based on the level of kidney function: Stage Description GFR(mL/min/1.73 m(2)) 1 Kidney damage with normal or decreased GFR 90 2 Kidney damage with mild decrease in GFR 60-89 3 Moderate decrease in GFR 30-59 4 Severe decrease in GFR 15-29 5 Kidney failure <15 (or dialysis) 16 Because ethnic data is not always readily available, this report includes an eGFR for both -Americans and non- Americans. The National Kidney Disease Education Program (NKDEP) does not endorse the use of the MDRD equation for patients that are not between the ages of 18 and 70, are , have extremes of body size, muscle mass, or nutritional status, or are non- or non-. According to the National Kidney Foundation, irrespective of diagnosis, the stage of the disease is based on the level of kidney function: Stage Description GFR(mL/min/1.73 m(2)) 1 Kidney damage with normal or decreased GFR 90 2 Kidney damage with mild decrease in GFR 60-89 3 Moderate decrease in GFR 30-59 4 Severe decrease in GFR 15-29 5 Kidney failure <15 (or dialysis) 17 Acute inflammation: >10.00 18 FAX RESULTS TO AT [phone] [id number] 19 Because ethnic data is not always readily available, this report includes an eGFR for both -Americans and non- Americans. The National Kidney Disease Education Program (NKDEP) does not endorse the use of the MDRD equation for patients that are not between the ages of 18 and 70, are , have extremes of body size, muscle mass, or nutritional status, or are non- or non-. According to the National Kidney Foundation, irrespective of diagnosis, the stage of the disease is based on the level of kidney function: Stage Description GFR(mL/min/1.73 m(2)) 1 Kidney damage with normal or decreased GFR 90 2 Kidney damage with mild decrease in GFR 60-89 3 Moderate decrease in GFR 30-59 4 Severe decrease in GFR 15-29 5 Kidney failure <15 (or dialysis) 20 Acute inflammation: >10.00 21 Because ethnic data is not always readily available, this report includes an eGFR for both -Americans and non- Americans. The National Kidney Disease Education Program (NKDEP) does not endorse the use of the MDRD equation for patients that are not between the ages of 18 and 70, are , have extremes of body size, muscle mass, or nutritional status, or are non- or non-. According to the National Kidney Foundation, irrespective of diagnosis, the stage of the disease is based on the level of kidney function: Stage Description GFR(mL/min/1.73 m(2)) 1 Kidney damage with normal or decreased GFR 90 2 Kidney damage with mild decrease in GFR 60-89 3 Moderate decrease in GFR 30-59 4 Severe decrease in GFR 15-29 5 Kidney failure <15 (or dialysis) 22 [id number] 23 Because ethnic data is not always readily available, this report includes an eGFR for both -Americans and non- Americans. The National Kidney Disease Education Program (NKDEP) does not endorse the use of the MDRD equation for patients that are not between the ages of 18 and 70, are , have extremes of body size, muscle mass, or nutritional status, or are non- or non-. According to the National Kidney Foundation, irrespective of diagnosis, the stage of the disease is based on the level of kidney function: Stage Description GFR(mL/min/1.73 m(2)) 1 Kidney damage with normal or decreased GFR 90 2 Kidney damage with mild decrease in GFR 60-89 3 Moderate decrease in GFR 30-59 4 Severe decrease in GFR 15-29 5 Kidney failure <15 (or dialysis) 24 Acute inflammation: >10.00 25 [id number] 26 Because ethnic data is not always readily available, this report includes an eGFR for both -Americans and non- Americans. The National Kidney Disease Education Program (NKDEP) does not endorse the use of the MDRD equation for patients that are not between the ages of 18 and 70, are , have extremes of body size, muscle mass, or nutritional status, or are non- or non-. According to the National Kidney Foundation, irrespective of diagnosis, the stage of the disease is based on the level of kidney function: Stage Description GFR(mL/min/1.73 m(2)) 1 Kidney damage with normal or decreased GFR 90 2 Kidney damage with mild decrease in GFR 60-89 3 Moderate decrease in GFR 30-59 4 Severe decrease in GFR 15-29 5 Kidney failure <15 (or dialysis) 27 Critical Result K:6.[address] BAER at: 19:10:52 by:[id number] Read back by:DR BAER 28 Acute inflammation: >10.00 29 Therapeutic target for the treatment of diabetes Mellitus patients is <7% HBA1C, and in selective patients <6.0%.Please refer to [place] [employer] Diabetic care guidelines for further information. 30 Because ethnic data is not always readily available, this report includes an eGFR for both -Americans and non- Americans. The National Kidney Disease Education Program (NKDEP) does not endorse the use of the MDRD equation for patients that are not between the ages of 18 and 70, are , have extremes of body size, muscle mass, or nutritional status, or are non- or non-. According to the National Kidney Foundation, irrespective of diagnosis, the stage of the disease is based on the level of kidney function: Stage Description GFR(mL/min/1.73 m(2)) 1 Kidney damage with normal or decreased GFR 90 2 Kidney damage with mild decrease in GFR 60-89 3 Moderate decrease in GFR 30-59 4 Severe decrease in GFR 15-29 5 Kidney failure <15 (or dialysis) 31 Acute inflammation: >10.00 32 Because ethnic data is not always readily available, this report includes an eGFR for both -Americans and non- Americans. The National Kidney Disease Education Program (NKDEP) does not endorse the use of the MDRD equation for patients that are not between the ages of 18 and 70, are , have extremes of body size, muscle mass, or nutritional status, or are non- or non-. According to the National Kidney Foundation, irrespective of diagnosis, the stage of the disease is based on the level of kidney function: Stage Description GFR(mL/min/1.73 m(2)) 1 Kidney damage with normal or decreased GFR 90 2 Kidney damage with mild decrease in GFR 60-89 3 Moderate decrease in GFR 30-59 4 Severe decrease in GFR 15-29 5 Kidney failure <15 (or dialysis) 33 Acute inflammation: >10.00 34 Because ethnic data is not always readily available, this report includes an eGFR for both -Americans and non- Americans. The National Kidney Disease Education Program (NKDEP) does not endorse the use of the MDRD equation for patients that are not between the ages of 18 and 70, are , have extremes of body size, muscle mass, or nutritional status, or are non- or non-. According to the National Kidney Foundation, irrespective of diagnosis, the stage of the disease is based on the level of kidney function: Stage Description GFR(mL/min/1.73 m(2)) 1 Kidney damage with normal or decreased GFR 90 2 Kidney damage with mild decrease in GFR 60-89 3 Moderate decrease in GFR 30-59 4 Severe decrease in GFR 15-29 5 Kidney failure <15 (or dialysis) 35 Acute inflammation: >10.00 36 Because ethnic data is not always readily available, this report includes an eGFR for both -Americans and non- Americans. The National Kidney Disease Education Program (NKDEP) does not endorse the use of the MDRD equation for patients that are not between the ages of 18 and 70, are , have extremes of body size, muscle mass, or nutritional status, or are non- or non-. According to the National Kidney Foundation, irrespective of diagnosis, the stage of the disease is based on the level of kidney function: Stage Description GFR(mL/min/1.73 m(2)) 1 Kidney damage with normal or decreased GFR 90 2 Kidney damage with mild decrease in GFR 60-89 3 Moderate decrease in GFR 30-59 4 Severe decrease in GFR 15-29 5 Kidney failure <15 (or dialysis) 37 Acute inflammation: >10.00 38 Because ethnic data is not always readily available, this report includes an eGFR for both -Americans and non- Americans. The National Kidney Disease Education Program (NKDEP) does not endorse the use of the MDRD equation for patients that are not between the ages of 18 and 70, are , have extremes of body size, muscle mass, or nutritional status, or are non- or non-. According to the National Kidney Foundation, irrespective of diagnosis, the stage of the disease is based on the level of kidney function: Stage Description GFR(mL/min/1.73 m(2)) 1 Kidney damage with normal or decreased GFR 90 2 Kidney damage with mild decrease in GFR 60-89 3 Moderate decrease in GFR 30-59 4 Severe decrease in GFR 15-29 5 Kidney failure <15 (or dialysis) 39 Acute inflammation: >10.00 40 Because ethnic data is not always readily available, this report includes an eGFR for both -Americans and non- Americans. The National Kidney Disease Education Program (NKDEP) does not endorse the use of the MDRD equation for patients that are not between the ages of 18 and 70, are , have extremes of body size, muscle mass, or nutritional status, or are non- or non-. According to the National Kidney Foundation, irrespective of diagnosis, the stage of the disease is based on the level of kidney function: Stage Description GFR(mL/min/1.73 m(2)) 1 Kidney damage with normal or decreased GFR 90 2 Kidney damage with mild decrease in GFR 60-89 3 Moderate decrease in GFR 30-59 4 Severe decrease in GFR 15-29 5 Kidney failure <15 (or dialysis) 41 ATN: DELMI URIAS FAX# [phone] 42 Acute inflammation: >10.00 43 Because ethnic data is not always readily available, this report includes an eGFR for both -Americans and non- Americans. The National Kidney Disease Education Program (NKDEP) does not endorse the use of the MDRD equation for patients that are not between the ages of 18 and 70, are , have extremes of body size, muscle mass, or nutritional status, or are non- or non-. According to the National Kidney Foundation, irrespective of diagnosis, the stage of the disease is based on the level of kidney function: Stage Description GFR(mL/min/1.73 m(2)) 1 Kidney damage with normal or decreased GFR 90 2 Kidney damage with mild decrease in GFR 60-89 3 Moderate decrease in GFR 30-59 4 Severe decrease in GFR 15-29 5 Kidney failure <15 (or dialysis) 44 SEE RESULT BELOW Name: AMMON GALO : [address]: Doug Martinez MD Acct: [id number] Unit: [id number] AGE: 50 Location: [facility] Re10/29/15 SEX: M Status: REG REF SPEC: [id number] MARY: 10/29/15-[address]: Doug Martinez MD REQ: [id number] RECD: 10/29/15 STATUS: COMP _ SOURCE: FOOT,LEFT SPDESC: ORDERED: Culture Stain Procedure Result Reported Site Wound/Misc Gram Stain Final 10/30/15- 0830 ML 1+ Neutrophils 3+ Gram Positive Bacilli Wound/Misc Culture Final 10/30/15- 1238 ML Organism 1 CORYNEBACTERIUM STRIATUM Quantity 2+ * [facility] - [facility]IN LAB ([facility]) . END OF REPORT * ML=Testing performed at Main Lab DEPARTMENT OF PATHOLOGY, [address] [place] [address] Dayne Pires M.D. Director [facility] # [id number] Because ethnic data is not always readily available, this report includes an eGFR for both -Americans and non- Americans. The National Kidney Disease Education Program (NKDEP) does not endorse the use of the MDRD equation for patients that are not between the ages of 18 and 70, are , have extremes of body size, muscle mass, or nutritional status, or are non- or non-. According to the National Kidney Foundation, irrespective of diagnosis, the stage of the disease is based on the level of kidney function: Stage Description GFR(mL/min/1.73 m(2)) 1 Kidney damage with normal or decreased GFR 90 2 Kidney damage with mild decrease in GFR 60-89 3 Moderate decrease in GFR 30-59 4 Severe decrease in GFR 15-29 5 Kidney failure <15 (or dialysis) 46 Acute inflammation: >10.00 Procedures Date CPT Code Description Status 10/26/2017 97318 Short Leg Cast Completed 10/16/2017 62603 Amputation Toe MP JT Completed 10/16/2017 37920 Amputation Toe MP JT Completed 10/16/2017 54894 Amputation Toe MP JT Completed 10/16/2017 35349 Amputation Toe MP JT Completed 10/16/2017 53565 Amputation Toe MP JT Completed 02/07/2017 46260 Short Leg Cast Completed 02/03/2017 79692 EKG, Interpretation Only Completed 01/23/2017 96977 Amputation Foot Midtarsal Completed 01/23/2017 95077 Amputation Foot Midtarsal Completed 01/17/2017 69694 ECHO Transthorasic Realtime 2D W Doppler & Color Completed Flow [facility] 01/17/2017 45540 Treadmill Interp/Report Only Completed 01/17/2017 29979 Stress Test Supervsn W/Out I/R Completed 01/16/2017 50434 EKG, Interpretation Only Completed 01/11/2017 08985 Rad Exam; Foot Comp Completed 02/01/2011 52978 EKG, Interpretation Only Completed 07/04/2006 35671 Treadmill Interp/Report Only Completed 07/04/2006 29876 Stress Test Supervsn W/Out I/R Completed 07/04/2006 32102 Stress Test Supervsn W/Out I/R Completed Encounters Type Date Location Provider CPT E/M Dx Office Visit 10/19/2017 [facility] Juni Manning, 05319 N17.9 3:02p 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 Tia N18.3 E11.42 Z79.4 Office Visit 10/18/2017 3:02p [facility], Juni Manning, 68700 N17.9 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 M.May N18.3 E11.42 Office Visit 10/17/2017 1:15p [facility] Michael Martinez, 12428 E11.69 Infectious Diseases M.D. M86.671 E11.40 E11.22 N18.3 B95.61 Office Visit 10/17/2017 3:01p [facility], Beth Tobias, 56016 N17.9 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 M.May N18.3 E11.42 Office Visit 10/16/2017 1:07p [facility] Doug Martinez, 40943 E11.69 Infectious Diseases M.DRafael M86.671 E11.40 L03.031 E11.22 N18.9 [facility] [address] S90.851[facility], 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 M.May N17.9 E11.42 Office Visit [facility]2017 [facility] 33018 S90.851A Assoc, 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 M.DRafael N17.9 N18.3 E11.42 Office Visit 10/15/2017 9:39a [facility] 37176 M86.271 Darshana Phillip MD Office Visit 10/14/2017 2:59p [facility] Shawna Gonzalez, 64425 S90.851A Assoc, 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 M.DRafael N17.9 N18.3 E11.42 Office Visit 05/23/2017 10:30a [facility] Michael Olvera 85250 L97.321 Infectious Diseases Tia Martinez Office Visit 03/27/2017 2:20p [facility] Michael Olvera 03655 M86.60 Infectious Diseases iTa Martinez L97.321 Office Visit 02/04/2017 3:47p [facility], Juni Manning, 89195 E87.5 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 M.DRafael E11.8 G62.9 N18.3 Office Visit 02/03/2017 3:46p [facility], Scot Sutton, 56479 E87.5 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 N.P. E11.8 G62.9 N18.3 Office Visit 01/25/2017 4:16p [facility], Ryan Howard M.D. 78176 N18.3 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 M86.60 E11.22 Z89.432 Office Visit 01/25/2017 8:22a [facility] Michael Martinez, 37178 E10.69 Infectious Diseases Tia M86.672 E10.22 N18.4 Z89.432 Office Visit 01/24/2017 8:18a [facility] Michael Martinez, 53216 E10.69 Infectious Diseases Tia M86.672 N18.9 Z89.432 E10.22 Office Visit 01/24/2017 4:15p [facility], Ryan Howard M.D. 77248 N18.3 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 Z89.432 E11.22 M86.60 Office Visit 01/23/2017 4:13p [facility] [address] Z89.432 Assoc, 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 M86.60 E11.22 Office Visit 01/18/2017 11:19a [facility], [place] [address] R55 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 N17.9 N18.4 M86.9 Office Visit 01/17/2017 11:18a [facility] Thiago Pitts, 01679 R55 Assoc, [place] 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 N17.9 E11.22 N18.4 Office Visit 01/16/2017 11:18a [facility], Juni Manning, 86839 R55 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 M.DRafael N17.9 E11.22 N18.4 Office Visit 01/11/2017 9:30a [facility], 49873 M86.672 [facility] Office Visit 12/26/2016 1:20p [facility] Michael Olvera 03638 Z79.2 Infectious Diseases Tia Martinez L97.524 M86.672 D64.9 Office Visit 11/29/2016 8:50a [facility] Doug D. 49182 L97.524 Infectious Diseases Tia Martinez E11.40 M86.672 E11.621 E11.69 Office Visit 01/12/2016 11:30a [facility] Olvera 62448 M86.672 Infectious Summer Martinez M.D. Office Visit 12/01/2015 10:10a [facility] Olvera 61677 M86.672 Infectious Summer Martinez M.D. Office Visit 12/01/2015 11:00a [facility] [place] [address] G47.9 Services Of [facility] E66.01 Office Visit 10/29/2015 4:20p [facility] Olvera 31896 M86.672 Infectious Diseases Tia Martinez Office Visit 10/09/2014 9:30a [facility] 74820 354.2 CBecky Weber Office Visit 01/09/2013 2:37p [facility], 82563 790.6 Assoc, 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 N.P. 250.02 250.20 357.2 Office Visit 09/17/2009 12:15a [facility], Beth Tobias, 95868 251.2 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 Tia Plan of Care 01/02/2018 - Robert Galarza M.D.M86.671 Other chronic osteomyelitis, right ankle and footNew Xrays:MRI Lower Extremity Right W/OFollow up:postop
--- OUTSIDE RECORDS SUMMARY | 2018-01-11 11:29 | XMS REPORT ---
:1965 External Reference #:[id number] Author Organization [employer] Address [address] [address] Phone [phone] Care Team Providers Name Role Phone Kell Rodriguez MD Primary Care Physician Unavailable Payers Type Date Identification Numbers Payment Provider Subscriber Medicare Primary Effective: Policy Number: Medicare Ammon Galo 2011 [id number] PayID: [id number] [address] [place] [address] Medigap Part B Policy Number: [id number] Medicaid Ammon Galo PayID: [id number] [address] [place] [address] Problems Date Description Provider Status Onset: 12/01/2015 [...] hours x 42 D. - [facility]14 [facility] M.D Ciprofloxacin 11/03 Hx Tablets 750mg 84tab 1 by mouth Doug s twice a day x D. - 42 days [facility] [place] [facility], 12/21 (start this [...] Older Vital Signs Date Vital Result Comment 12/28/2017 Height 75.75 inches 6'3.75" Weight 363.00 [...] Test Date Test Result H/L Range Note CBC Auto Diff 02/13/2017 White Blood Count 5.8 10^3/uL 3.5-10.8 1 Red Blood Count 3.77 10^6/uL Low 4.0-5.4 1 Hemoglobin 10.1 g/dL Low 14.0-18.0 1 Hematocrit 32 % Low 42-52 1 Mean Corpuscular Volume 85 fL 80-94 1 Mean Corpuscular Hemoglobin 27 pg 27-31 1 Mean Corpuscular HGB Conc 32 g/dL 31-36 1 Red Cell Distribution Width 16 % High 10.5-15 1 Platelet Count 161 10^3/uL 150-450 1 Mean Platelet Volume 10 um3 7.4-10.4 1 Abs Neutrophils 3.8 10^3/uL 1.5-7.7 1 Abs Lymphocytes 1.1 10^3/uL 1.0-4.8 1 Abs Monocytes 0.6 10^3/uL 0-0.8 1 Abs Eosinophils 0.3 10^3/uL 0-0.6 1 Abs Basophils 0 10^3/uL 0-0.2 1 Abs Nucleated RBC 0.01 10^3/uL 1 Granulocyte % 64.9 % 38-83 1 Lymphocyte % 19.6 % Low 25-47 1 Monocyte % 9.6 % High 1-9 1 Eosinophil % 5.4 % 0-6 1 Basophil % 0.5 % 0-2 1 Nucleated Red Blood Cells % 0.1 1 Comp Metabolic Panel 02/13/2017 Sodium 136 mmol/L 133-145 1 Potassium 4.7 mmol/L 3.5-5.0 1 Chloride 105 mmol/L 101-111 1 Co2 Carbon Dioxide 24 mmol/L 22-32 1 Anion Gap 7 mmol/L 2-11 1 Glucose 181 mg/dL High 70-100 1 Blood Urea Nitrogen 47 mg/dL High 6-24 1 Creatinine 2.44 mg/dL High 0.67-1.17 1 BUN/Creatinine Ratio 19.3 8-20 1 Calcium 8.5 mg/dL Low 8.6-10.3 1 Total Protein 5.7 g/dL Low 6.4-8.9 1 Albumin 3.1 g/dL Low 3.2-5.2 1 Globulin 2.6 g/dL 2-4 1 Albumin/Globulin Ratio 1.2 1-3 1 Total Bilirubin 0.30 mg/dL 0.2-1.0 1 Alkaline Phosphatase 67 U/L 34-104 1 Alt 8 U/L 7-52 1 Ast 14 U/L 13-39 1 Egfr Non- 28.4 >60 1 Egfr 36.5 >60 1, 2 Laboratory test finding 02/13/2017 C Reactive Protein 15.84 mg/L High &lt ; 5.00 1, 3 CBC Auto Diff 02/06/2017 White Blood Count [...] Egfr Non- 26.2 >60 Egfr 33.8 >60 4 Laboratory test finding 02/06/2017 C Reactive Protein 4.87 mg/L < 5.00 5 Laboratory test finding 01/23/2017 Point of Care Glucose 118 mg/dL High 74 -106 6 Laboratory test finding 01/23/2017 Point of Care Glucose 203 mg/dL High 74 -106 7 Electrolytes 01/23/2017 Sodium 131 mmol/L Low 133-145 Potassium 5.3 mmol/L High 3.5-5.0 Chloride 102 mmol/L 101-111 Co2 Carbon Dioxide 23 mmol/L 22-32 Anion Gap 6 mmol/L 2-11 Laboratory test finding 01/23/2017 Blood Urea Nitrogen BUN 43 mg/dL High 6 -24 Creatinine 01/23/2017 Creatinine 3.01 mg/dL High 0.67-1.17 Egfr Non- 22.3 >60 Egfr 28.6 >60 8 Inr/Protime 01/23/2017 Inr 1.13 High 0.89-1.11 CBC Auto Diff 01/09/2017 White Blood Count 6.9 10^3/uL 3.5-10.8 9 Red Blood Count 3.38 10^6/uL Low 4.0-5.4 9 Hemoglobin 9.3 g/dL Low 14.0-18.0 9 Hematocrit 29 % Low 42-52 9 Mean Corpuscular Volume 86 fL 80-94 9 Mean Corpuscular Hemoglobin 28 pg 27-31 9 Mean Corpuscular HGB Conc 32 g/dL 31-36 9 Red Cell Distribution Width 15 % 10.5-15 9 Platelet Count 200 10^3/uL 150-450 9 Mean Platelet Volume 9 um3 7.4-10.4 9 Abs Neutrophils 5.1 10^3/uL 1.5-7.7 9 Abs Lymphocytes 0.9 10^3/uL Low 1.0-4.8 9 Abs Monocytes 0.7 10^3/uL 0-0.8 9 Abs Eosinophils 0.2 10^3/uL 0-0.6 9 Abs Basophils 0 10^3/uL 0-0.2 9 Abs Nucleated RBC 0.01 10^3/uL 9 Granulocyte % 73.7 % 38-83 9 Lymphocyte % 12.9 % Low 25-47 9 Monocyte % 10.4 % High 1-9 9 Eosinophil % 2.4 % 0-6 9 Basophil % 0.6 % 0-2 9 Nucleated Red Blood Cells % 0.1 9 Comp Metabolic Panel 01/09/2017 Sodium 135 mmol/L 133-145 9 Potassium 5.6 mmol/L High 3.5-5.0 9 Chloride 108 mmol/L 101-111 9 Co2 Carbon Dioxide 21 mmol/L Low 22-32 9 Anion Gap 6 mmol/L 2-11 9 Glucose 95 mg/dL 70-100 9 Blood Urea Nitrogen 54 mg/dL High 6-24 9 Creatinine 2.29 mg/dL High 0.67-1.17 9 BUN/Creatinine Ratio 23.6 High 8-20 9 Calcium 8.4 mg/dL Low 8.6-10.3 9 Total Protein 6.1 g/dL Low 6.4-8.9 9 Albumin 2.9 g/dL Low 3.2-5.2 9 Globulin 3.2 g/dL 2-4 9 Albumin/Globulin Ratio 0.9 Low 1-3 9 Total Bilirubin 0.20 mg/dL 0.2-1.0 9 Alkaline Phosphatase 94 U/L 34-104 9 Alt 11 U/L 7-52 9 Ast 13 U/L 13-39 9 Egfr Non- 30.5 >60 9 Egfr 39.3 >60 9, 10 Laboratory test 01/09/2017 C Reactive Protein 24.87 mg/L High < 5.00 9 , 11 finding CBC Auto Diff 01/02/2017 White Blood Count 4.8 10^3/uL 3.5-10.8 12 Red Blood Count 3.28 10^6/uL Low 4.0-5.4 12 Hemoglobin 9.1 g/dL Low 14.0-18.0 12 Hematocrit 29 % Low 42-52 12 Mean Corpuscular Volume 87 fL 80-94 12 Mean Corpuscular Hemoglobin 28 pg 27-31 12 Mean Corpuscular HGB Conc 32 g/dL 31-36 12 Red Cell Distribution Width 15 % 10.5-15 12 Platelet Count 179 10^3/uL 150-450 12 Mean Platelet Volume 9 um3 7.4-10.4 12 Abs Neutrophils 3.3 10^3/uL 1.5-7.7 12 Abs Lymphocytes 0.8 10^3/uL Low 1.0-4.8 12 Abs Monocytes 0.5 10^3/uL 0-0.8 12 Abs Eosinophils 0.2 10^3/uL 0-0.6 12 Abs Basophils 0 10^3/uL 0-0.2 12 Abs Nucleated RBC 0 10^3/uL 12 Granulocyte % 68.6 % 38-83 12 Lymphocyte % 16.6 % Low 25-47 12 Monocyte % 11.1 % High 1-9 12 Eosinophil % 3.2 % 0-6 12 Basophil % 0.5 % 0-2 12 Nucleated Red Blood Cells % 0 12 Laboratory test 01/02/2017 C Reactive Protein 26.73 mg/L High < 5.00 12, 13 finding Comp Metabolic Panel 01/02/2017 Sodium 134 mmol/L 133-145 12 Potassium 5.1 mmol/L High 3.5-5.0 12 Chloride 106 mmol/L 101-111 12 Co2 Carbon Dioxide 22 mmol/L 22-32 12 Anion Gap 6 mmol/L 2-11 12 Glucose 171 mg/dL High 70-100 12 Blood Urea Nitrogen 50 mg/dL High 6-24 12 Creatinine 2.16 mg/dL High 0.67-1.17 12 BUN/Creatinine Ratio 23.1 High 8-20 12 Calcium 8.6 mg/dL 8.6-10.3 12 Total Protein 6.0 g/dL Low 6.4-8.9 12 Albumin 2.9 g/dL Low 3.2-5.2 12 Globulin 3.1 g/dL 2-4 12 Albumin/Globulin Ratio 0.9 Low 1-3 12 Total Bilirubin 0.20 mg/dL 0.2-1.0 12 Alkaline Phosphatase 114 U/L High 34-104 12 Alt 24 U/L 7-52 12 Ast 22 U/L 13-39 12 Egfr Non- 32.7 >60 12 Egfr 42.0 >60 12, 14 CBC Auto Diff 12/27/2016 White Blood Count [...] Egfr Non- 27.8 >60 Egfr 35.8 >60 15 Laboratory test finding 12/27/2016 C Reactive Protein 21.08 mg/L High &lt ; 5.00 16 CBC Auto Diff 12/12/2016 White Blood Count 6.7 10^3/uL 3.5-10.8 17 Red Blood Count 3.25 10^6/uL Low 4.0-5.4 17 Hemoglobin 9.1 g/dL Low 14.0-18.0 17 Hematocrit 28 % Low 42-52 17 Mean Corpuscular Volume 86 fL 80-94 17 Mean Corpuscular Hemoglobin 28 pg 27-31 17 Mean Corpuscular HGB Conc 33 g/dL 31-36 17 Red Cell Distribution Width 14 % 10.5-15 17 Platelet Count 239 10^3/uL 150-450 17 Mean Platelet Volume 8 um3 7.4-10.4 17 Abs Neutrophils 4.3 10^3/uL 1.5-7.7 17 Abs Lymphocytes 1.2 10^3/uL 1.0-4.8 17 Abs Monocytes 0.9 10^3/uL High 0-0.8 17 Abs Eosinophils 0.2 10^3/uL 0-0.6 17 Abs Basophils 0 10^3/uL 0-0.2 17 Abs Nucleated RBC 0.01 10^3/uL 17 Granulocyte % 64.9 % 38-83 17 Lymphocyte % 18.3 % Low 25-47 17 Monocyte % 13.6 % High 1-9 17 Eosinophil % 2.5 % 0-6 17 Basophil % 0.7 % 0-2 17 Nucleated Red Blood Cells % 0.1 17 Comp Metabolic Panel 12/12/2016 Sodium 136 mmol/L 133-145 17 Potassium 5.7 mmol/L High 3.5-5.0 17 Chloride 100 mmol/L Low 101-111 17 Co2 Carbon Dioxide 26 mmol/L 22-32 17 Anion Gap 10 mmol/L 2-11 17 Glucose 209 mg/dL High 70-100 17 Blood Urea Nitrogen 50 mg/dL High 6-24 17 Creatinine 2.90 mg/dL High 0.67-1.17 17 BUN/Creatinine Ratio 17.2 8-20 17 Calcium 8.9 mg/dL 8.6-10.3 17 Total Protein 6.9 g/dL 6.4-8.9 17 Albumin 3.1 g/dL Low 3.2-5.2 17 Globulin 3.8 g/dL 2-4 17 Albumin/Globulin Ratio 0.8 Low 1-3 17 Total Bilirubin 0.30 mg/dL 0.2-1.0 17 Alkaline Phosphatase 91 U/L 34-104 17 Alt 13 U/L 7-52 17 Ast 15 U/L 13-39 17 Egfr Non- 23.2 >60 17 Egfr 29.9 >60 17, 18 Laboratory test 12/12/2016 C Reactive Protein 139.43 mg/L High < 5.00 17, 19 finding Basic Metabolic Panel 12/09/2016 Sodium 133 mmol/L 133-145 Potassium 5.2 mmol/L High 3.5-5.0 Chloride 103 mmol/L 101-111 Co2 Carbon Dioxide 22 mmol/L 22-32 Anion Gap 8 mmol/L 2-11 Glucose 155 mg/dL High 70-100 Blood Urea Nitrogen 56 mg/dL High 6-24 Creatinine 3.01 mg/dL High 0.67-1.17 BUN/Creatinine Ratio 18.6 8-20 Calcium 8.6 mg/dL 8.6-10.3 Egfr Non- 22.3 >60 Egfr 28.6 >60 20 CBC Auto Diff 12/06/2016 White Blood Count 7.0 10^3/uL 3.5-10.8 21 Red Blood Count 3.03 10^6/uL Low 4.0-5.4 21 Hemoglobin 8.4 g/dL Low 14.0-18.0 21 Hematocrit 26 % Low 42-52 21 Mean Corpuscular Volume 87 fL 80-94 21 Mean Corpuscular Hemoglobin 28 pg 27-31 21 Mean Corpuscular HGB Conc 32 g/dL 31-36 21 Red Cell Distribution Width 14 % 10.5-15 21 Platelet Count 153 10^3/uL 150-450 21 Mean Platelet Volume 9 um3 7.4-10.4 21 Abs Neutrophils 4.9 10^3/uL 1.5-7.7 21 Abs Lymphocytes 1.0 10^3/uL 1.0-4.8 21 Abs Monocytes 0.8 10^3/uL 0-0.8 21 Abs Eosinophils 0.2 10^3/uL 0-0.6 21 Abs Basophils 0.1 10^3/uL 0-0.2 21 Abs Nucleated RBC 0 10^3/uL 21 Granulocyte % 70.0 % 38-83 21 Lymphocyte % 14.6 % Low 25-47 21 Monocyte % 11.9 % High 1-9 21 Eosinophil % 2.8 % 0-6 21 Basophil % 0.7 % 0-2 21 Nucleated Red Blood Cells % 0 21 Comp Metabolic Panel 12/06/2016 Sodium 131 mmol/L Low 133-145 21 Potassium 5.3 mmol/L High 3.5-5.0 21 Chloride 103 mmol/L 101-111 21 Co2 Carbon Dioxide 23 mmol/L 22-32 21 Anion Gap 5 mmol/L 2-11 21 Glucose 254 mg/dL High 70-100 21 Blood Urea Nitrogen 55 mg/dL High 6-24 21 Creatinine 3.08 mg/dL High 0.67-1.17 21 BUN/Creatinine Ratio 17.9 8-20 21 Calcium 8.2 mg/dL Low 8.6-10.3 21 Total Protein 5.6 g/dL Low 6.4-8.9 21 Albumin 2.7 g/dL Low 3.2-5.2 21 Globulin 2.9 g/dL 2-4 21 Albumin/Globulin Ratio 0.9 Low 1-3 21 Total Bilirubin 0.20 mg/dL 0.2-1.0 21 Alkaline Phosphatase 70 U/L 34-104 21 Alt 9 U/L 7-52 21 Ast 10 U/L Low 13-39 21 Egfr Non- 21.7 >60 21 Egfr 27.9 >60 21, 22 Laboratory test 12/06/2016 C Reactive Protein 147.38 mg/L High < 5.00 21, 23 finding Vancomycin Trough 15.5 g/mL 21, 24 Comp Metabolic Panel 11/29/2016 Sodium 134 mmol/L [...] Egfr Non- 26.8 >60 Egfr 34.5 >60 25 Potassium 6.1 mmol/L High 3.5-5.0 26 Anion Gap 4 mmol/L 2-11 Laboratory test finding 11/29/2016 C Reactive Protein 12.87 mg/L High &lt ; 5.00 27 Hemoglobin A1c (Glyco HGB) 11.2 % High Less than 6.0 28 CBC Auto Diff 11/29/2016 White Blood Count [...] Egfr Non- 26.0 >60 Egfr 33.5 >60 29 Laboratory test finding 12/21/2015 Vancomycin Trough 15.8 g/mL C Reactive Protein 4.19 mg/L < 5.00 30 CBC Auto Diff 12/15/2015 White Blood Count [...] Egfr Non- 27.7 >60 Egfr 35.6 >60 31 Laboratory test finding 12/15/2015 Vancomycin Trough 21.9 g/mL C Reactive Protein 7.69 mg/L High < 5.00 32 CBC Auto Diff 12/07/2015 White Blood Count [...] Egfr Non- 31.0 >60 Egfr 39.8 >60 33 Laboratory test finding 12/07/2015 Vancomycin Trough 18.2 g/mL C Reactive Protein 8.83 mg/L High < 5.00 34 CBC Auto Diff 11/30/2015 White Blood Count [...] Egfr Non- 29.6 >60 Egfr 38.1 >60 35 Laboratory test finding 11/30/2015 Vancomycin Trough 16.7 g/mL C Reactive Protein 4.80 mg/L < 5.00 36 TSH (Thyroid Stim Horm) 1.35 ?IU/mL 0.34-5.60 [...] Egfr Non- 26.4 >60 Egfr 33.9 >60 37 Laboratory test finding 11/23/2015 Vancomycin Trough 14.7 g/mL C Reactive Protein 7.00 mg/L High < 5.00 38 Laboratory test finding 11/16/2015 Vancomycin Trough 17.2 g/mL Basic Metabolic Panel 11/16/2015 Sodium 138 mmol/L 133-145 Potassium 4.5 mmol/L 3.5-5.0 Chloride 107 mmol/L 101-111 Co2 Carbon Dioxide 24 mmol/L 22-32 Anion Gap 7 mmol/L 2-11 Glucose 136 mg/dL High 70-100 Blood Urea Nitrogen 35 mg/dL High 6-24 Creatinine 1.79 mg/dL High 0.67-1.17 BUN/Creatinine Ratio 19.6 8-20 Egfr Non- 40.7 >60 Egfr 52.4 >60 39 Calcium 8.4 mg/dL Low 8.6-10.3 Laboratory test finding 11/13/2015 Vancomycin Trough 26.2 g/mL 40 C Reactive Protein 7.37 mg/L High < 5.00 41 Comp Metabolic Panel 11/13/2015 Sodium 137 mmol/L [...] Egfr Non- 41.8 >60 Egfr 53.8 >60 42 CBC Auto Diff 11/13/2015 White Blood Count [...] finding 10/29/2015 Wound Culture/Sensi SEE RESULT BELOW 43 Comp Metabolic Panel 10/29/2015 Sodium 133 mmol/L [...] Egfr Non- 53.2 >60 Egfr 68.4 >60 44 CBC Auto Diff 10/29/2015 White Blood Count [...] Reactive Protein 6.00 mg/L High < 5.00 45 1 [id number] 2 Because ethnic data is not always readily [...] 15-29 5 Kidney failure <15 (or dialysis) 3 Acute inflammation: >10.00 4 Because ethnic data is not always readily [...] 15-29 5 Kidney failure <15 (or dialysis) 5 Acute inflammation: >10.00 6 Diesel Mechanic: [id number] Diesel Mechanic: [id number] 8 Because ethnic data is not always readily [...] 15-29 5 Kidney failure <15 (or dialysis) 9 [id number] 10 Because ethnic data is not always readily [...] 15-29 5 Kidney failure <15 (or dialysis) 11 Acute inflammation: >10.00 12 [id number] 13 Acute inflammation: >10.00 14 Because ethnic data is not always readily [...] 15-29 5 Kidney failure <15 (or dialysis) 15 Because ethnic data is not always [...] 5 Kidney failure <15 (or dialysis) 16 Acute inflammation: >10.00 17 FAX RESULTS TO AT [phone] [id number] 18 Because ethnic data is not always readily [...] 15-29 5 Kidney failure <15 (or dialysis) 19 Acute inflammation: >10.00 20 Because ethnic data is not always readily [...] 15-29 5 Kidney failure <15 (or dialysis) 21 [id number] 22 Because ethnic data is not always readily [...] 15-29 5 Kidney failure <15 (or dialysis) 23 Acute inflammation: >10.00 24 [id number] 25 Because ethnic data is not always readily [...] 15-29 5 Kidney failure <15 (or dialysis) 26 Critical Result K:6.[address] BAER at: 19:10:52 by:[id number] Read back by:DR BAER 27 Acute inflammation: >10.00 28 Therapeutic target for the treatment of diabetes Mellitus patients is <7% HBA1C, and in selective patients <6.0%.Please refer to [place] [employer] Diabetic care guidelines for further information. 29 Because ethnic data is not always readily [...] 15-29 5 Kidney failure <15 (or dialysis) 30 Acute inflammation: >10.00 31 Because ethnic data is not always readily [...] 15-29 5 Kidney failure <15 (or dialysis) 32 Acute inflammation: >10.00 33 Because ethnic data is not always readily [...] 15-29 5 Kidney failure <15 (or dialysis) 34 Acute inflammation: >10.00 35 Because ethnic data is not always readily [...] 15-29 5 Kidney failure <15 (or dialysis) 36 Acute inflammation: >10.00 37 Because ethnic data is not always readily [...] 15-29 5 Kidney failure <15 (or dialysis) 38 Acute inflammation: >10.00 39 Because ethnic data is not always readily [...] 15-29 5 Kidney failure <15 (or dialysis) 40 ATN: DELMI URIAS FAX# [phone] 41 Acute inflammation: >10.00 42 Because ethnic data is not always readily [...] 15-29 5 Kidney failure <15 (or dialysis) 43 SEE RESULT BELOW Name: AMMON GALO : [address]: Doug Martinez MD Acct: [id number] Unit: [id number] AGE: 50 Location: [facility] Re10/29/15 SEX: M Status: REG REF SPEC: [id number] MARY: 10/29/15-[address]: Doug Martinez MD REQ: [id number] RECD: 10/29/15 STATUS: COMP _ SOURCE: MILTON,LEFT SPDESC: ORDERED: Culture Stain Procedure Result Reported Site Wound/Misc Gram Stain Final 10/30/15- 0830 ML 1+ Neutrophils 3+ Gram Positive Bacilli Wound/Misc Culture Final 10/30/15- 1238 ML Organism 1 CORYNEBACTERIUM STRIATUM Quantity 2+ * ML - [facility] LAB ([id number]) . END OF REPORT * ML=Testing performed at Main Lab DEPARTMENT OF PATHOLOGY, [address] [place] [address] Dayne Pires M.D. Director [facility] # [id number] 44 Because ethnic data is not always readily [...] 15-29 5 Kidney failure <15 (or dialysis) 45 Acute inflammation: >10.00 Procedures Date CPT Code Description Status 10/26/2017 11421 Short Leg Cast Completed 10/16/2017 06852 Amputation Toe MP JT Completed 10/16/2017 72411 Amputation Toe MP JT Completed 10/16/2017 98157 Amputation Toe MP JT Completed 10/16/2017 91542 Amputation Toe MP JT Completed 10/16/2017 74857 Amputation Toe MP JT Completed 02/07/2017 33041 Short Leg Cast Completed 02/03/2017 38872 EKG, Interpretation Only Completed 01/23/2017 34622 Amputation Foot Midtarsal Completed 01/23/2017 70109 Amputation Foot Midtarsal Completed 01/17/2017 61601 ECHO Transthorasic Realtime 2D W Doppler & Color Completed Flow Hosp 01/17/2017 94547 Treadmill Interp/Report Only Completed 01/17/2017 65682 Stress Test Supervsn W/Out I/R Completed 01/16/2017 70436 EKG, Interpretation Only Completed 01/11/2017 34053 Rad Exam; Foot Comp Completed 02/01/2011 06654 EKG, Interpretation Only Completed 07/04/2006 00475 Treadmill Interp/Report Only Completed 07/04/2006 58724 Stress Test Supervsn W/Out I/R Completed 07/04/2006 79490 Stress Test Supervsn W/Out I/R Completed Encounters Type Date Location Provider CPT E/M Dx Office Visit 10/19/2017 [facility] Assnerissa,jazmin Manning, 50342 N17.9 3:02p 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 Tia N18.3 E11.42 Z79.4 Office Visit 10/18/2017 3:02p [facility], Juni Manning, 78137 N17.9 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 M.DRafael N18.3 E11.42 Office Visit 10/17/2017 1:15p [facility] Michael Martinez, 64397 E11.69 Infectious Diseases M.D. M86.671 E11.40 E11.22 N18.3 B95.61 Office Visit 10/17/2017 3:01p [facility], Beth Tobias, 33327 N17.9 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 M.May N18.3 E11.42 Office Visit 10/16/2017 1:07p [facility] Duog Martinez, 24737 E11.69 Infectious Diseases M.DRafael M86.671 E11.40 L03.031 E11.22 N18.9 Office Visit 10/16/2017 3:01p [facility] Bethharry Tobias, 71438 S90.851A Assoc, 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 M.DRafael N17.9 E11.42 Office Visit [facility] 98799 S90.851A Assoc, 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 M.DRafael N17.9 N18.3 E11.42 Office Visit 10/15/2017 9:39a [facility] 18930 M86.271 Darshana Phillip MD Office Visit 10/14/2017 2:59p [facility] Shawna Gonzalez, 30810 S90.851A Assoc, 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 M.DRafael N17.9 N18.3 E11.42 Office Visit 05/23/2017 10:30a [facility] Michael Olvera 96939 L97.321 Infectious Diseases Tia Martinez Office Visit 03/27/2017 2:20p [facility] Michael Olvera 91137 M86.60 Infectious Diseases Tia Martinez L97.321 Office Visit 02/04/2017 3:47p [facility], Juni Manning, 76662 E87.5 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 M.DRafael E11.8 G62.9 N18.3 Office Visit 02/03/2017 3:46p [facility], Scot Sutton, 29367 E87.5 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 N.P. E11.8 G62.9 N18.3 Office Visit 01/25/2017 4:16p [facility], Ryan Howard M.D. 99734 N18.3 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 M86.60 E11.22 Z89.432 Office Visit 01/25/2017 8:22a [facility] Michael Martinez, 58540 E10.69 Infectious Diseases Tia M86.672 E10.22 N18.4 Z89.432 Office Visit 01/24/2017 8:18a [facility] Michael Martinez, 22999 E10.69 Infectious Diseases Tia M86.672 N18.9 Z89.432 E10.22 Office Visit 01/24/2017 4:15p [facility]oc, Ryan Howard M.D. 60702 N18.3 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 Z89.432 E11.22 M86.60 Office Visit 01/23/2017 4:13p [facility] [place] [address] Z89.432 Assoc, 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 M86.60 E11.22 Office Visit 01/18/2017 11:19a [facility], [place] [address] R55 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 N17.9 N18.4 M86.9 Office Visit 01/17/2017 11:18a [facility] Thiago Pitts, 42709 R55 Assoc, [place] 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 N17.9 E11.22 N18.4 Office Visit 01/16/2017 11:18a [facility], Juni Manning, 42147 R55 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 M.D. N17.9 E11.22 N18.4 Office Visit 01/11/2017 9:30a [facility], 92366 M86.672 [facility] Office Visit 12/26/2016 1:20p [facility] Michael Olvera 08457 Z79.2 Infectious Diseases Tia Martinez L97.524 M86.672 D64.9 Office Visit 11/29/2016 8:50a [facility] Michael Olvera 62673 L97.524 Infectious Diseases Tia Martinez E11.40 M86.672 E11.621 E11.69 Office Visit 01/12/2016 11:30a [facility] Olvera 98524 M86.672 Martina Martinez M.D. Office Visit 12/01/2015 10:10a [facility] Michael Olvera 52356 M86.672 Infectious Summer Martinez M.D. Office Visit 12/01/2015 11:00a [facility] [place] [address] G47.9 Services Of [employer] E66.01 Office Visit 10/29/2015 4:20p [facility] Michael Olvera 56869 M86.672 Infectious Summer Martinez M.D. Office Visit 10/09/2014 9:30a [facility], 79240 354.2 CRafaelMEmily Weber Office Visit 01/09/2013 2:37p [facility], 57441 790.6 Assoc, 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 N.P. 250.02 250.20 357.2 Office Visit 09/17/2009 12:15a [facility]oc, Beth Tobias, 47683 251.2 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 Tia Plan of Care 12/28/2017 - Robert Galarza M.D.M86.671 Other chronic osteomyelitis, right ankle and footNew Medication:Levofloxacin 750 mgNew Labs:Body Fluid C& SFollow up:1 week
[2018-01-11] MEDS ORDERED: Piperacillin/Tazobac ADVAN(*) 3.375 GM in NS 0.9% 100 ML* 100 ML IVPB ONE (12:30)
[2018-01-11] MEDS ORDERED: Dextrose 50% Syringe 50 ML* 25 GM/50 ML SYRINGE IV PUSH PRN (12:32)
[2018-01-11] MEDS ORDERED: Calcium Carbonate CHEW TAB* 500 MG (TUMS) PO PRN (12:35)
[2018-01-11] MEDS ORDERED: Zosyn per Pharmacy* NOTE FOLLOW UP SCH (13:00)
[2018-01-11 13:16] LABS: ABS Basophils 0.1 10^3/ul (0-0.2); ABS Eosinophils 0.2 10^3/ul (0-0.6); ABS Lymphocytes 1.2 10^3/ul (1.0-4.8); ABS Monocytes 0.5 10^3/ul (0-0.8); ABS Neutrophils 6.7 10^3/ul (1.5-7.7); ABS Nucleated RBC 0 10^3/ul; Eosinophil % 2.1 % (0-6); Hematocrit 29 % (42-52); Hemoglobin 9.6 g/dl (14.0-18.0); INR 1.06 (0.77-1.02); Lymphocyte % 13.7 % (25-47); Mean Corpuscular HGB Conc 33 g/dl (31-36); Mean Corpuscular Hemoglobin 28 pg (27-31); Mean Corpuscular Volume 84 fL (80-94); Mean Platelet Volume 6.9 um3 (7.4-10.4); Nucleated Red Blood Cells % 0; Platelet Count 276 10^3/ul (150-450); Red Blood Count 3.48 10^6/ul (4.0-5.4); Red Cell Distribution Width 16 % (10.5-15); White Blood Count 8.7 10^3/ul (3.5-10.8)
[2018-01-11 13:25] LABS: EGFR Non-African American 17.3 (>60)
[2018-01-11] MEDS: Vancomycin(*) 2,000 MG in NS 0.9% 500 ML* 500 ML IVPB ONE ×2 (14:05→14:10)
[2018-01-11] MEDS: Heparin VIAL(*) 5000 UNITS/ML VIAL (FIVE THOUSAND) SUBCUT SCH ×2 (14:06→22:12)
[2018-01-11] MEDS ORDERED: Piperacillin/Tazobactam 13.5 GM IV 24 hour continuous infusion IVPB SCH ×2 (17:00)
--- NOTE | 2018-01-11 17:38 | HP ---
CC: Dr. Marie; Dr. Galarza * ADMISSION HISTORY AND PHYSICAL: DATE OF ADMISSION: 01/11/18 PRIMARY CARE PROVIDER: Dr. Marie. ORTHOPEDIC SURGEON: Dr. Galarza. HEALTHCARE PROXY: Rolando Cristina, who is his friend. CODE STATUS: Full. SOURCE OF INFORMATION: History is obtained from interview with patient, review of medical records. RELIABILITY: Fair. Note: From today an orthopedic clinic is not yet complete. CHIEF COMPLAINT: Direct admission from orthopedic clinic for worsening cellulitis with underlying osteomyelitis. HISTORY OF PRESENT ILLNESS: This is a 52-year-old man with past medical history of type 2 diabetes as well as osteomyelitis status post hospital stay in [place] with osteomyelitis and cellulitis in October followed by a hospital stay in [facility] shortly thereafter. He received right second to fifth toe amputation. He notes that since that time he has been doing well. He underwent additional a more extensive amputation since that time some time in November. He presented to orthopedic surgery clinic at the end of 12/28/17 after noting forefoot erythema. At that time, he was started on Bactrim, however caused nausea, returned to clinic was started on levofloxacin as well as Keflex and seen back again today with worsening with overlying cellulitis now , being directly admitted to our service for plan on transmetatarsal amputation on Monday. The patient notes he has had no fever, chills or night sweats. No cough or shortness of breath or chest pain. He has no sensation below his knees and therefore has not felt any pain. He is generally in good spirits. However, impression of the overlying infection was thought to warrant direct hospital stay for IV antibiotics which the author agrees with. The patient underwent an MRI on 01/09/18 which was notable for bone marrow edema in the third, fourth and fifth metatarsals, most consistent with osteomyelitis of the right foot. There was additionally diffuse soft tissue swelling and focal fluid collection adjacent to the distal third, fourth, and fifth metatarsals most consistent with postoperative seroma or abscess. PAST MEDICAL HISTORY: Includes CKD, osteomyelitis, hyperlipidemia, type 2 diabetes, hypertension, anemia, depression, peripheral vascular disease, diabetic neuropathy, left transmetatarsal amputation, disarticulation of the second to fifth toes on the right and then followed by one proximal amputation some time in November, osteomyelitis of the right foot as described above. MEDICATIONS: Reviewed from indicate active medications include: 1. Oxycodone 5 mg every 4 to 6 hours needed for pain. 2. Procardia XL 30 mg daily. 3. Omeprazole 20 mg daily. 4. Bydureon 2 mg injection every 7 days. 5. Lisinopril/hydrochlorothiazide 20/25 mg daily. 6. Novolin R sliding scale. 7. Toujeo once daily. 8. Vitamin B12 daily. 9. Tums 500 mg 2 tablets as needed. The patient indicates that he has 60 units of Lantus in the morning and is now reflected in the medication list as indicated above. He notes that he takes it every morning. He also notes he is no longer taking Bydureon as it is not covered by his insurance company. ALLERGIES: Include PEANUTS, PEANUT OIL, SPINACH, STRAWBERRY, BACTRIM and TRIMETHOPRIM. FAMILY HISTORY: Type 2 diabetes in his father. No CAD or stroke. SOCIAL HISTORY: Smoked approximately 35 years, one pack per day, quit in 2008. No alcohol. He is disabled . REVIEW OF SYSTEMS: As per HPI, otherwise all other systems negative. PHYSICAL EXAMINATION GENERAL: Sitting up in bed interactive, sitting on the edge of the bed. VITAL SIGNS: In the hospital yet to be obtained. HEENT: Oropharynx is clear. Moist mucous membranes. Sclerae anicteric. NECK: Non-elevated JVD. No cervical or supraclavicular lymphadenopathy. LUNGS: His lungs are clear to auscultation. HEART: Regular rate and rhythm. ABDOMEN: Soft, nontender, nondistended. EXTREMITIES: Warm and well perfused. He has a left transmetatarsal amputation. On his right, he has distal amputation of his distal phalanges with erythema of the forefoot laterally with scant discharge. LABORATORY DATA/DIAGNOSTIC STUDIES: A culture from 12/28/17 indicated Staph aureus sensitive to oxacillin. Data as noted above. MRI on 01/09/18 with findings of the right foot osteomyelitis as well as suspicious for an abscess. ASSESSMENT AND PLAN: This is a 52-year-old man, type 2 diabetes, on outpatient antibiotics for progression of cellulitis, now presenting as a direct admission for transmetatarsal amputation on Monday as well as IV antibiotics prior. 1. Osteomyelitis. Orthopedic consult to be discussed on transfer. We will start vancomycin and Zosyn as if this improved. This helped in the past with his previous episode of cellulitis. It did not improve on coverage for MRSA. We will target broader spectrum with vancomycin and Zosyn to be narrowed after surgery. Full set of labs for baseline does not want blood cultures at this time. 2. Type 2 diabetes. I will decrease his Lantus to 50 units from 60 units to be given in the morning. Insulin sliding scale. 3. History of chronic kidney disease. Check labs now, dose meds accordingly. Last known creatinine here, 3.17 in November 2017. 4. Hypertension, continue home medications. 5. DVT prophylaxis. Heparin subcu. [id number]/CPS #: [id number] MTDD
[2018-01-11] MEDS: Insulin LISPRO* 1 UNITS UNIT SUBCUT SCH ×2 (17:54→22:11)
[2018-01-11] MEDS: Piperacillin/Tazobactam 13.5 GM IV 24 hour continuous infusion IVPB SCH ×2 (19:22)
[2018-01-12] MEDS: Omeprazole CAP* 20 MG PO SCH (06:02)
[2018-01-12] MEDS: Heparin VIAL(*) 5000 UNITS/ML VIAL (FIVE THOUSAND) SUBCUT SCH ×3 (06:03→21:47)
[2018-01-12] MEDS ORDERED: Vancomycin Random Level* NOTE FOLLOW UP ONE (08:00)
[2018-01-12] MEDS ORDERED: Vancomycin per Pharmacy* NOTE FOLLOW UP PRN (08:45)
[2018-01-12] MEDS ORDERED: Vancomycin(*) 1,000 MG in NS 0.9% 250 ML* 250 ML IVPB ONE (09:00)
[2018-01-12] MEDS ORDERED: Insulin GLARGINE(*) 1 UNITS UNIT SUBCUT SCH (09:00)
[2018-01-12] MEDS ORDERED: Pneumococcal *Vac Polyvalent 0.5 ML VIAL IM ONE (09:00)
[2018-01-12] MEDS: Hydrochlorothiazide TAB* 25 MG PO SCH (09:22)
[2018-01-12] MEDS: NIFEdipine ER TAB* 30 MG PO SCH (09:23)
[2018-01-12] MEDS: Lisinopril TAB* 10 MG PO SCH (09:23)
[2018-01-12] MEDS: Insulin LISPRO* 1 UNITS UNIT SUBCUT SCH ×4 (09:24→20:49)
--- NOTE | 2018-01-12 15:52 | PN ---
Subjective Date of Service: 01/12/18 Interval History: Xu reports no significant changes since admission. He is eating well, just used bathroom, and able to ambulate with no difficulty. Denies fever or chills. He has no pain at lower extremities. Family History: Unchanged from Admission Social History: Unchanged from Admission Past Medical History: Unchanged from Admission Objective Active Medications: Acetaminophen (Tylenol Tab*) 650 mg PO Q4H PRN PRN Reason: FEVER/PAIN Calcium Carbonate (Tums*) 500 mg PO Q4H PRN PRN Reason: INDIGESTION Dextrose (D50w Syringe 50 Ml*) 12.5 gm IV PUSH .FOR FS < 60 - SS PRN PRN Reason: FS < 60 Heparin Sodium (Porcine) (Heparin Vial(*)) 5,000 units SUBCUT Q8HR [facility] Last Admin: 01/12/18 13:09 Dose: 5,000 units Hydrochlorothiazide (Hydrodiuril Tab*) 25 mg PO DAILY [facility] Last Admin: 01/12/18 09:22 Dose: 25 mg Piperacillin Sod/Tazobactam (Sod 13.5 gm/ Sodium Chloride) 500 mls @ 20.833 mls /hr IVPB 1930 [facility] Last Admin: 01/11/18 19:22 Dose: 20.833 mls/hr Insulin Glargine (Lantus(*)) 50 units SUBCUT Q24H [facility] Last Admin: 01/12/18 09:25 Dose: 50 unit Insulin Human Lispro (Humalog*) 0 units SUBCUT ACHS [facility] PRN Reason: Protocol Last Admin: 01/12/18 13:08 Dose: 9 units Lisinopril (Prinivil Tab*) 20 mg PO DAILY [facility] Last Admin: 01/12/18 09:23 Dose: 20 mg Nifedipine (Procardia Xl Tab*) 30 mg PO DAILY [facility] Last Admin: 01/12/18 09:23 Dose: 30 mg Omeprazole (Prilosec Cap*) 20 mg PO DAILY@0600 [facility] Last Admin: 01/12/18 06:02 Dose: 20 mg Ondansetron HCl (Zofran Inj*) 4 mg IV Q4H PRN PRN Reason: NAUSEA/VOMITING Oxycodone HCl (Roxycodone Tab*) 5 mg PO Q4H PRN PRN Reason: PAIN Pharmacy Consult (Zosyn Per Pharmacy*) 1 note FOLLOW UP .ZOSYN PER PHARMACY [facility] Pharmacy Consult (Vancomycin Per Pharmacy*) 1 note FOLLOW UP . PRN PRN Reason: PER PROTOCOL Pharmacy Consult (Vancomycin Random Level*) 1 note FOLLOW UP ONCE ONE Stop: 01/13/18 06:01 Vital Signs - 8 hr 01/12/18 01/12/18 01/12/18 09:35 11:26 15:44 Temperature 98.2 F 97.5 F Pulse Rate 66 64 Respiratory 18 15 18 Rate Blood Pressure 150/77 149/75 (mmHg) O2 Sat by Pulse 96 97 Oximetry Oxygen Devices in Use Now: None Appearance: Appears comfortable and in NAD Eyes: No Scleral Icterus, PERRLA Ears/Nose/Mouth/Throat: Clear Oropharnyx, Mucous Membranes Moist Neck: NL Appearance and Movements; NL JVP, Trachea Midline Respiratory: Symmetrical Chest Expansion and Respiratory Effort, Clear to Auscultation Cardiovascular: NL Sounds; No Murmurs; No JVD, RRR Abdominal: NL Sounds; No Tenderness; No Distention, No Hepatosplenomegaly Lymphatic: No Cervical Adenopathy Extremities: No Edema, - - Right foot with prior amputation noted, moderate erythema at incision sides with scanty discharge noted. Pedal pulse weak. Senastion impaired to touch. Left foot with prior trans-metatarsal amputation. Old scar dry and intact. No ulcers or rashes. Skin: No Rash or Ulcers Neurological: Alert and Oriented x 3, NL Muscle Strength and Tone Lines/Tubes/Other Access: Clean, Dry and Intact Peripheral IV Nutrition: Taking PO's Result Diagrams: 01/11/18 13:00 01/12/18 05:58 Microbiology and Other Data: . Diagnostic Imaging: . EKG Data: . Assess/Plan/Problems-Billing Assessment: A 52 y/o male with Hx insulin-dependent DM with progression of right foot cellulitis and osteomylitis, s/p toe amputation, who was admitted for IV broad spectrum antibiotics and medical optimization for anticipated right trans- metatarsal amputation on Monday. - Patient Problems (1) Diabetes Current Visit: Yes Status: Chronic Comment: - Continue Lantus and Humolog per sliding scale - Worsening hyperglycemia secondary to infection (2) Osteomyelitis of ankle or foot Current Visit: Yes Status: Acute Comment: - Continue Vanco and Zosyn, pending culture and sensitivity - Dressing changes as needed - Plan for surgery on Monday (3) CKD (chronic kidney disease) Current Visit: No Comment: - Likely due to combination of DM and HTN. - Createnine at baseline - Nutrition consult for renal diet. (4) COPD (chronic obstructive pulmonary disease) Current Visit: No Status: Chronic Comment: - Chronic, no exacerbation (5) Hyperkalemia Current Visit: No Status: Chronic Comment: - Chronic, at baseline (6) Hypertension Current Visit: No Status: Chronic Comment: - Continue Procardia and Lisinopril (7) Status post transmetatarsal amputation of left foot Current Visit: No Status: Chronic Comment: - management as per ortho - No c/o from left side, able to bear weight (8) Anemia of chronic disease Current Visit: No Status: Chronic Comment: Stable. (9) Morbid obesity Current Visit: No Comment: BMI 40.3. (10) DVT prophylaxis Current Visit: No Status: Acute Comment: HSQ (11) Full code status Current Visit: No Status: Acute Code(s): Z78.9 - OTHER SPECIFIED HEALTH STATUS SNOMED Code(s): 828115070 Status and Disposition: Inpatient for IV antibiotics and medical optimization. Orthopedic consult, surgery for right trans-metatarsal amputation on Monday.
[2018-01-12] MEDS ORDERED: Simethicone TAB* 80 MG TAB.CHEW PO PRN (16:27)
[2018-01-12] MEDS ORDERED: Insulin GLARGINE(*) 1 UNITS UNIT SUBCUT ONE (17:47)
[2018-01-12] MEDS: Lactobacillus Acidophilus* 1 TAB PO SCH (18:11)
[2018-01-12] MEDS: Piperacillin/Tazobactam 13.5 GM IV 24 hour continuous infusion IVPB SCH ×2 (19:44)
[2018-01-13] MEDS: Omeprazole CAP* 20 MG PO SCH (05:29)
[2018-01-13] MEDS: Heparin VIAL(*) 5000 UNITS/ML VIAL (FIVE THOUSAND) SUBCUT SCH ×3 (05:30→21:26)
[2018-01-13] MEDS ORDERED: Vancomycin Random Level* NOTE FOLLOW UP ONE (06:00)
[2018-01-13] MEDS: Ondansetron INJ* 2 MG/ML VIAL IV PRN (06:12)
[2018-01-13 06:19] LABS: EGFR Non-African American 19.4 (>60)
--- NOTE | 2018-01-13 08:55 | PN ---
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 He now feels better after eating. No CP or SOB. No fevers or chills. Reports he had a BM today for the first time in several days. Family History: Unchanged from Admission Social History: Unchanged from Admission Past Medical History: Unchanged from Admission Objective Active Medications: Acetaminophen (Tylenol Tab*) 650 mg PO Q4H PRN PRN Reason: FEVER/PAIN Calcium Carbonate (Tums*) 500 mg PO Q4H PRN PRN Reason: INDIGESTION Dextrose (D50w Syringe 50 Ml*) 12.5 gm IV PUSH .FOR FS < 60 - SS PRN PRN Reason: FS < 60 Heparin Sodium (Porcine) (Heparin Vial(*)) 5,000 units SUBCUT Q8HR [facility] Last Admin: 01/13/18 05:30 Dose: 5,000 units Hydrochlorothiazide (Hydrodiuril Tab*) 25 mg PO DAILY [facility] Last Admin: 01/12/18 09:22 Dose: 25 mg Piperacillin Sod/Tazobactam (Sod 13.5 gm/ Sodium Chloride) 500 mls @ 20.833 mls /hr IVPB 1930 [facility] Last Admin: 01/12/18 19:44 Dose: 20.833 mls/hr Vancomycin HCl 1,000 mg/ (Sodium Chloride) 250 mls @ 166.667 mls/hr IVPB ONCE ONE Stop: 01/13/18 10:29 Insulin Glargine (Lantus(*)) 60 units SUBCUT Q24H [facility] Insulin Human Lispro (Humalog*) 0 units SUBCUT ACHS [facility] PRN Reason: Protocol Last Admin: 01/12/18 20:49 Dose: 9 units Lactobacillus Rhamnosus (Culturelle*) 1 cap PO DAILY [facility] Last Admin: 01/12/18 18:11 Dose: 1 cap Lisinopril (Prinivil Tab*) 20 mg PO DAILY [facility] Last Admin: 01/12/18 09:23 Dose: 20 mg Nifedipine (Procardia Xl Tab*) 30 mg PO DAILY [facility] Last Admin: 01/12/18 09:23 Dose: 30 mg Omeprazole (Prilosec Cap*) 20 mg PO DAILY@0600 [facility] Last Admin: 01/13/18 05:29 Dose: 20 mg Ondansetron HCl (Zofran Inj*) 4 mg IV Q4H PRN PRN Reason: NAUSEA/VOMITING Last Admin: 01/13/18 06:12 Dose: 4 mg Oxycodone HCl (Roxycodone Tab*) 5 mg PO Q4H PRN PRN Reason: PAIN Pharmacy Consult (Zosyn Per Pharmacy*) 1 note FOLLOW UP .ZOSYN PER PHARMACY [facility] Pharmacy Consult (Vancomycin Per Pharmacy*) 1 note FOLLOW UP . PRN PRN Reason: PER PROTOCOL Pharmacy Consult (Vancomycin Random Level*) 1 note FOLLOW UP 599 ONE Stop: 01/14/18 06:01 Pharmacy Profile Note (Vancomycin Trough Check) 1 note FOLLOW UP 599 ONE Stop: 01/14/18 06:01 Simethicone (Mylicon Tab*) 80 mg PO Q6H PRN PRN Reason: GAS Vital Signs - 8 hr 01/13/18 03:40 Temperature 97.9 F Pulse Rate 62 Respiratory 16 Rate Blood Pressure 158/66 (mmHg) O2 Sat by Pulse 94 Oximetry Oxygen Devices in Use Now: None Appearance: obese male sitting up in bed in NAD. A+Ox3 Eyes: No Scleral Icterus, PERRLA Ears/Nose/Mouth/Throat: Mucous Membranes Moist Neck: NL Appearance and Movements; NL JVP Respiratory: Symmetrical Chest Expansion and Respiratory Effort, Clear to Auscultation Cardiovascular: NL Sounds; No Murmurs; No JVD, RRR, No Edema Abdominal: NL Sounds; No Tenderness; No Distention Extremities: No Edema Neurological: Alert and Oriented x 3, NL Sensation, NL Muscle Strength and Tone Lines/Tubes/Other Access: Clean, Dry and Intact Peripheral IV Nutrition: Taking PO's Result Diagrams: 01/13/18 05:46 01/13/18 05:46 Microbiology and Other Data: . Diagnostic Imaging: . EKG Data: . Assess/Plan/Problems-Billing Assessment: A 52 y/o male with Hx insulin-dependent DM with progression of right foot cellulitis and osteomylitis, s/p toe amputation, who was admitted for IV broad spectrum antibiotics and medical optimization for anticipated right trans- metatarsal amputation on Monday. - Patient Problems (1) Osteomyelitis of ankle or foot Comment: - Continue Vanco and Zosyn, pending culture and sensitivity - Dressing changes as needed - Plan for surgery on Monday - RCRI preoperative risk score is class III risk placing him at a 6.6% risk of major cardiac event. Echo 12/2016 showing EF 55-60%, no valvular abnormalities, Nuclear Cardiac Stress test 12/2016 placing him at low risk. Plan to obtain pre- op EKG. (2) Hyperkalemia Comment: - per pt he has a hx of hyperk+ and has been told to watch what he eats. - plan to hold lisinopril - this may not be the best drug for him as an outpt. - Plan to give kaexylate x1 now. Recheck labs in am. (3) Diabetes Comment: - Continue Lantus and Humolog per sliding scale - Worsening hyperglycemia secondary to infection (4) Hypertension Status: Chronic Comment: - Continue Procardia and HCTZ - Hold Lisinopril in the setting of hyperkalemia, again, the pt reports hx of hyperK+, this may not be the best medication for this patient. - continue to monitor blood pressures and add additional agent if needed (5) CKD (chronic kidney disease) Comment: - Likely due to combination of DM and HTN. Per pt starting seeing a rabbit dresser 6 months in the [place] area (does not remember the name). - Creatinine at baseline - Nutrition consult for renal diet. - Renally dose medications (6) COPD (chronic obstructive pulmonary disease) Comment: - Chronic, no exacerbation (7) Full code status (8) DVT prophylaxis Comment: HSQ Status and Disposition: Inpatient for IV antibiotics and medical optimization. Orthopedic consult, surgery for right trans-metatarsal amputation on Monday.
[2018-01-13] MEDS ORDERED: Vancomycin(*) 1,000 MG in NS 0.9% 250 ML* 250 ML IVPB ONE (09:00)
[2018-01-13 09:10] LABS: ABS Basophils 0.1 10^3/ul (0-0.2); ABS Eosinophils 0.1 10^3/ul (0-0.6); ABS Lymphocytes 0.8 10^3/ul (1.0-4.8); ABS Monocytes 0.5 10^3/ul (0-0.8); ABS Neutrophils 3.9 10^3/ul (1.5-7.7); ABS Nucleated RBC 0 10^3/ul; Eosinophil % 2.6 % (0-6); Hematocrit 26 % (42-52); Hemoglobin 8.5 g/dl (14.0-18.0); Lymphocyte % 14.7 % (25-47); Mean Corpuscular HGB Conc 33 g/dl (31-36); Mean Corpuscular Hemoglobin 28 pg (27-31); Mean Corpuscular Volume 85 fL (80-94); Mean Platelet Volume 7.4 um3 (7.4-10.4); Nucleated Red Blood Cells % 0.1; Platelet Count 227 10^3/ul (150-450); Red Blood Count 3.03 10^6/ul (4.0-5.4); Red Cell Distribution Width 15 % (10.5-15); White Blood Count 5.4 10^3/ul (3.5-10.8)
[2018-01-13] MEDS ORDERED: PROCHLORPERAZINE INJ 5 MG/ML 2 ML VIAL IV ONE (09:22)
[2018-01-13] MEDS ORDERED: Magnesium Sulfate 2 GM IV* 2 GM/50 ML BAG IVPB ONE (09:22)
[2018-01-13] MEDS ORDERED: NS 0.9% 1000 ML* 1,000 ML IV SCH (09:30)
[2018-01-13] MEDS ORDERED: Sodium Polystyrene ORAL.SOL* 15 GM/60 ML BTL PO ONE (09:36)
[2018-01-13] MEDS: Lisinopril TAB* 10 MG PO SCH (10:23)
[2018-01-13] MEDS: Lactobacillus Acidophilus* 1 TAB PO SCH ×2 (10:23→21:25)
[2018-01-13] MEDS: Hydrochlorothiazide TAB* 25 MG PO SCH (10:36)
[2018-01-13] MEDS: NIFEdipine ER TAB* 30 MG PO SCH (10:36)
[2018-01-13] MEDS: Insulin GLARGINE(*) 1 UNITS UNIT SUBCUT SCH (10:36)
[2018-01-13] MEDS: Insulin LISPRO* 1 UNITS UNIT SUBCUT SCH ×4 (10:36→21:25)
[2018-01-13] MEDS: Piperacillin/Tazobactam 13.5 GM IV 24 hour continuous infusion IVPB SCH ×2 (20:11)
[2018-01-14] MEDS: Ondansetron INJ* 2 MG/ML VIAL IV PRN ×2 (02:03→09:18)
[2018-01-14 05:35] LABS: ABS Basophils 0 10^3/ul (0-0.2); ABS Eosinophils 0.1 10^3/ul (0-0.6); ABS Lymphocytes 0.8 10^3/ul (1.0-4.8); ABS Monocytes 0.5 10^3/ul (0-0.8); ABS Neutrophils 4.4 10^3/ul (1.5-7.7); ABS Nucleated RBC 0 10^3/ul; Eosinophil % 1.9 % (0-6); Hematocrit 26 % (42-52); Hemoglobin 8.5 g/dl (14.0-18.0); Lymphocyte % 13.9 % (25-47); Mean Corpuscular HGB Conc 33 g/dl (31-36); Mean Corpuscular Hemoglobin 28 pg (27-31); Mean Corpuscular Volume 83 fL (80-94); Mean Platelet Volume 7.4 um3 (7.4-10.4); Nucleated Red Blood Cells % 0; Platelet Count 232 10^3/ul (150-450); Red Blood Count 3.07 10^6/ul (4.0-5.4); Red Cell Distribution Width 16 % (10.5-15); White Blood Count 5.9 10^3/ul (3.5-10.8)
[2018-01-14 05:42] LABS: EGFR Non-African American 20.6 (>60)
[2018-01-14] MEDS ORDERED: Vancomycin Random Level* NOTE FOLLOW UP ONE (06:00)
[2018-01-14] MEDS ORDERED: Vancomycin Trough Check NOTE FOLLOW UP ONE (06:00)
[2018-01-14] MEDS ORDERED: Buffered Lidocaine 0.9% SYRIN* 5 ML/SYR SYRINGE INTRADERM ONE (06:37)
[2018-01-14] MEDS: Heparin VIAL(*) 5000 UNITS/ML VIAL (FIVE THOUSAND) SUBCUT SCH ×3 (07:14→21:38)
[2018-01-14] MEDS: Omeprazole CAP* 20 MG PO SCH (07:15)
[2018-01-14] MEDS: Acetaminophen TAB* 325 MG PO PRN ×2 (07:23→16:04)
[2018-01-14] MEDS: Lactobacillus Acidophilus* 1 TAB PO SCH ×2 (10:03→21:37)
[2018-01-14] MEDS: Hydrochlorothiazide TAB* 25 MG PO SCH (10:03)
[2018-01-14] MEDS: Sertraline* 50 MG TAB PO SCH (10:04)
[2018-01-14] MEDS: Insulin LISPRO* 1 UNITS UNIT SUBCUT SCH ×4 (10:04→21:41)
[2018-01-14] MEDS: NIFEdipine ER TAB* 30 MG PO SCH (10:04)
[2018-01-14] MEDS: Insulin GLARGINE(*) 1 UNITS UNIT SUBCUT SCH (10:06)
--- NOTE | 2018-01-14 10:48 | PN ---
Progress Note - Progress Note Date of Service: 01/14/18 SOAP: Subjective: [Pt. doing fairly well - better than yesterday. Still with occasional nausea but not as bad. Denies CP, SOB, Dizziness] Objective: [A and O x 3, NAD R foot dressing C/D/I Calf soft, NT Vital Signs: Temp Pulse Resp BP Pulse Ox 98.7 F 64 18 156/70 98 01/14/18 07:31 01/14/18 07:31 01/14/18 10:15 01/14/18 07:31 01/14/18 07:31 Laboratory Results - last 24 hr 01/13/18 01/13/18 01/13/18 11:24 16:28 21:02 WBC RBC Hgb Hct MCV MCH MCHC RDW Plt Count MPV Neut % (Auto) Lymph % (Auto) Loving % (Auto) Eos % (Auto) Baso % (Auto) Absolute Neuts (auto) Absolute Lymphs (auto) Absolute Monos (auto) Absolute Eos (auto) Absolute Basos (auto) Absolute Nucleated RBC Nucleated RBC % Sodium Potassium Chloride Carbon Dioxide Anion Gap BUN Creatinine Est GFR ( Amer) Est GFR (Non-Af Amer) BUN/Creatinine Ratio Glucose POC Glucose (mg/dL) 205 H 172 H 219 H Calcium Magnesium Iron TIBC % Saturation Unsat Iron Binding Transferrin Ferritin Folate Random Vancomycin 01/14/18 01/14/18 01/14/18 05:03 05:03 09:21 WBC 5.9 RBC 3.07 L Hgb 8.5 L Hct 26 L MCV 83 MCH 28 MCHC 33 RDW 16 H Plt Count 232 MPV 7.4 Neut % (Auto) 74.9 Lymph % (Auto) 13.9 L Loving % (Auto) 8.6 H Eos % (Auto) 1.9 Baso % (Auto) 0.7 Absolute Neuts (auto) 4.4 Absolute Lymphs (auto) 0.8 L Absolute Monos (auto) 0.5 Absolute Eos (auto) 0.1 Absolute Basos (auto) 0 Absolute Nucleated RBC 0 Nucleated RBC % 0 Sodium 135 L Potassium 5.0 Chloride 107 Carbon Dioxide 22 Anion Gap 6 BUN 56 H Creatinine 3.21 H Est GFR ( Amer) 26.5 Est GFR (Non-Af Amer) 20.6 BUN/Creatinine Ratio 17.4 Glucose 198 H POC Glucose (mg/dL) 191 H Calcium 8.6 Magnesium 1.8 L Iron 54 TIBC 265 % Saturation 20 Unsat Iron Binding 211 Transferrin 189 L Ferritin 137.8 Folate 10.03 Random Vancomycin 17.1 ] Assessment: [52 yo male with osteomyelitis R foot] Plan: [To OR tomorrow with Dr. Galarza NPO after midnight Con't on Vanco and Zosyn per medicine]
[2018-01-14] MEDS ORDERED: Vancomycin(*) 1,000 MG in NS 0.9% 250 ML* 250 ML IVPB ONE (12:00)
[2018-01-14] MEDS: Piperacillin/Tazobactam 13.5 GM IV 24 hour continuous infusion IVPB SCH ×2 (20:12)
[2018-01-14] MEDS ORDERED: Magnesium Sulfate 2 GM IV* 2 GM/50 ML BAG IVPB ONE (21:08)
--- NOTE | 2018-01-14 21:15 | PN ---
Subjective Date of Service: 01/14/18 Interval History: Patient reports his nausea feels better today but has had some intermittent nausea throughout the day; no vomiting. He reports at home he has intermittent nausea especially after he takes his pills. Biggest c/o today is a "sinus headache". Reports hx of migraines in the past. Otherwise he reports he feels like he is a little better today. Denies any fever or chills. Family History: Unchanged from Admission Social History: Unchanged from Admission Past Medical History: Unchanged from Admission Objective Active Medications: Acetaminophen (Tylenol Tab*) 650 mg PO Q4H PRN PRN Reason: FEVER/PAIN Last Admin: 01/14/18 16:04 Dose: 650 mg Calcium Carbonate (Tums*) 500 mg PO Q4H PRN PRN Reason: INDIGESTION Stop: 01/14/18 23:59 Dextrose (D50w Syringe 50 Ml*) 12.5 gm IV PUSH .FOR FS < 60 - SS PRN PRN Reason: FS < 60 Heparin Sodium (Porcine) (Heparin Vial(*)) 5,000 units SUBCUT Q8HR [facility] Last Admin: 01/14/18 14:22 Dose: 5,000 units Hydrochlorothiazide (Hydrodiuril Tab*) 25 mg PO DAILY [facility] Stop: 01/14/18 23:59 Last Admin: 01/14/18 10:03 Dose: 25 mg Piperacillin Sod/Tazobactam (Sod 13.5 gm/ Sodium Chloride) 500 mls @ 20.833 mls /hr IVPB 1930 [facility] Last Admin: 01/14/18 20:12 Dose: 20.833 mls/hr Sodium Chloride (Ns 0.9% 1000 Ml*) 1,000 mls @ 75 mls/hr IV PER RATE [facility] Magnesium Sulfate (Magnesium Sulfate 2 Gm Iv*) 2 gm in 50 mls @ 50 mls/hr IVPB ONCE ONE Stop: 01/14/18 22:07 Insulin Glargine (Lantus(*)) 60 units SUBCUT Q24H [facility] Stop: 01/14/18 23:59 Last Admin: 01/14/18 10:06 Dose: 60 unit Insulin Glargine (Lantus(*)) 30 units SUBCUT Q24H [facility] Insulin Human Lispro (Humalog*) 0 units SUBCUT ACHS [facility] PRN Reason: Protocol Last Admin: 01/14/18 17:50 Dose: 3 units Lactobacillus Rhamnosus (Culturelle*) 1 cap PO BID [facility] Stop: 01/14/18 23:59 Last Admin: 01/14/18 10:03 Dose: 1 cap Lidocaine/Sodium Bicarbonate (Buffered Lidocaine 0.9% Syrin*) 0.2 ml INTRADERM ONCE ONE Stop: 01/15/18 11:06 Nifedipine (Procardia Xl Tab*) 30 mg PO DAILY [facility] Last Admin: 01/14/18 10:04 Dose: 30 mg Omeprazole (Prilosec Cap*) 20 mg PO DAILY@0600 [facility] Last Admin: 01/14/18 07:15 Dose: 20 mg Ondansetron HCl (Zofran Inj*) 4 mg IV Q4H PRN PRN Reason: NAUSEA/VOMITING Last Admin: 01/14/18 09:18 Dose: 4 mg Oxycodone HCl (Roxycodone Tab*) 5 mg PO Q4H PRN PRN Reason: PAIN Pharmacy Consult (Zosyn Per Pharmacy*) 1 note FOLLOW UP .ZOSYN PER PHARMACY [facility] Pharmacy Consult (Vancomycin Per Pharmacy*) 1 note FOLLOW UP . PRN PRN Reason: PER PROTOCOL Pharmacy Consult (Vancomycin Random Level*) 1 note FOLLOW UP . PRN PRN Reason: PER PROTOCOL Sertraline HCl (Zoloft*) 50 mg PO DAILY [facility] Last Admin: 01/14/18 10:04 Dose: 50 mg Simethicone (Mylicon Tab*) 80 mg PO Q6H PRN PRN Reason: GAS Stop: 01/14/18 23:59 Vital Signs - 8 hr 01/14/18 01/14/18 01/14/18 15:26 16:02 19:23 Temperature 97.5 F 96.8 F Pulse Rate 65 76 Respiratory 14 20 Rate Blood Pressure 189/91 164/90 181/99 (mmHg) O2 Sat by Pulse 98 98 Oximetry 01/14/18 20:50 Temperature Pulse Rate Respiratory Rate Blood Pressure 168/90 (mmHg) O2 Sat by Pulse Oximetry Oxygen Devices in Use Now: None Appearance: morbidly obese male alying in bed in NAD A+O x3 Eyes: No Scleral Icterus, PERRLA Ears/Nose/Mouth/Throat: NL Teeth, Lips, Gums, Mucous Membranes Moist Neck: NL Appearance and Movements; NL JVP Respiratory: Symmetrical Chest Expansion and Respiratory Effort, Clear to Auscultation Cardiovascular: NL Sounds; No Murmurs; No JVD, RRR, No Edema Abdominal: NL Sounds; No Tenderness; No Distention, - - obese Extremities: No Edema, - Skin: - - right foot CD+I Neurological: Alert and Oriented x 3 Lines/Tubes/Other Access: Clean, Dry and Intact Peripheral IV Nutrition: Taking PO's Result Diagrams: 01/14/18 05:03 01/14/18 05:03 Microbiology and Other Data: . Diagnostic Imaging: . EKG Data: . Assess/Plan/Problems-Billing Assessment: A 52 y/o male with Hx insulin-dependent DM with progression of right foot cellulitis and osteomylitis, s/p toe amputation, who was admitted for IV broad spectrum antibiotics and medical optimization for anticipated right trans- metatarsal amputation on Monday. - Patient Problems (1) Osteomyelitis of ankle or foot Comment: - Continue Vanco and Zosyn - Dressing changes as needed - Plan for surgery on Monday - RCRI preoperative risk score is class III risk placing him at a 6.6% risk of major cardiac event. Echo 12/2016 showing EF 55-60%, no valvular abnormalities, Nuclear Cardiac Stress test 12/2016 placing him at low risk. Pre-op EKG sinus rhythm with noted ST changes; compared to prior EKG no changes. Patient is optimized for surgery. - NPO after midnight (2) Hyperkalemia Comment: - now resolved after dose of kaexlayte - per pt he has a hx of hyperk+ and has been told to watch what he eats. - plan to hold lisinopril - this may not be the best drug for him as an outpt. -- Recheck labs in am. (3) Diabetes Comment: - Decreased Lantus in half (30 units Qam) in prep for surgery, Resume Humolog per sliding scale post-op - Worsening hyperglycemia secondary to infection (4) Hypertension Status: Chronic Comment: - Continue Procardia, HCTZ - Hold Lisinopril in the setting of hyperkalemia, again, the pt reports hx of hyperK+, this may not be the best medication for this patient. - continue to monitor blood pressures - will add hydralyzine prn (5) CKD (chronic kidney disease) Comment: - Likely due to combination of DM and HTN. Per pt starting seeing a hair stylist 6 months in the [place] area (does not remember the name). - Creatinine at baseline - Nutrition consult for renal diet. - Renally dose medications (6) COPD (chronic obstructive pulmonary disease) Comment: - Chronic, no exacerbation (7) Full code status (8) DVT prophylaxis Comment: HSQ Status and Disposition: Inpatient for IV antibiotics and medical optimization. Orthopedic surgery planned monday
[2018-01-14] MEDS ORDERED: hydrALAZINE TAB* 25 MG PO ONE (21:16)
[2018-01-15] MEDS: Acetaminophen TAB* 325 MG PO PRN ×2 (04:54→19:33)
[2018-01-15 05:37] LABS: ABS Basophils 0.1 10^3/ul (0-0.2); ABS Eosinophils 0.1 10^3/ul (0-0.6); ABS Lymphocytes 1.1 10^3/ul (1.0-4.8); ABS Monocytes 0.5 10^3/ul (0-0.8); ABS Neutrophils 3.9 10^3/ul (1.5-7.7); ABS Nucleated RBC 0 10^3/ul; Eosinophil % 2.3 % (0-6); Hematocrit 27 % (42-52); Hemoglobin 9.1 g/dl (14.0-18.0); Lymphocyte % 20.1 % (25-47); Mean Corpuscular HGB Conc 34 g/dl (31-36); Mean Corpuscular Hemoglobin 28 pg (27-31); Mean Corpuscular Volume 83 fL (80-94); Mean Platelet Volume 7.1 um3 (7.4-10.4); Nucleated Red Blood Cells % 0.1; Platelet Count 230 10^3/ul (150-450); Red Cell Distribution Width 16 % (10.5-15); White Blood Count 5.7 10^3/ul (3.5-10.8)
[2018-01-15 05:59] LABS: EGFR Non-African American 19.5 (>60)
[2018-01-15] MEDS ORDERED: Vancomycin Random Level* NOTE FOLLOW UP PRN (06:00)
[2018-01-15] MEDS: Omeprazole CAP* 20 MG PO SCH (06:31)
[2018-01-15] MEDS: Heparin VIAL(*) 5000 UNITS/ML VIAL (FIVE THOUSAND) SUBCUT SCH ×3 (06:33→21:20)
[2018-01-15] MEDS: NS 0.9% 1000 ML* 1,000 ML IV SCH ×2 (06:56→19:33)
[2018-01-15] MEDS: Ondansetron INJ* 2 MG/ML VIAL IV PRN ×2 (07:04→20:59)
[2018-01-15] MEDS: Insulin LISPRO* 1 UNITS UNIT SUBCUT SCH ×4 (08:15→21:20)
[2018-01-15] MEDS: NIFEdipine ER TAB* 30 MG PO SCH (08:24)
[2018-01-15] MEDS: Sertraline* 50 MG TAB PO SCH (08:24)
[2018-01-15] MEDS: Insulin GLARGINE(*) 1 UNITS UNIT SUBCUT SCH (08:25)
--- NOTE | 2018-01-15 09:45 | PN ---
Progress Note - Progress Note Date of Service: 01/15/18 SOAP: Subjective: 52 yo male with osteomyelitis R foot. Scheduled for OR today with Dr. Dempsey. Patient without complaints, questions re: surgery. Objective: General- WEll appearing, resting in bed, AO, sleepy MSK- RLE- dressing over foot, no odor drainage noted, PT 1+, no edema noted. Vital Signs Temp 98.1 F 01/15/18 08:08 Pulse 71 01/15/18 08:08 Resp 17 01/15/18 08:08 BP 180/93 01/15/18 08:08 Pulse Ox 94 01/15/18 08:08 Intake & Output 01/14/18 01/15/18 01/15/18 18:59 06:59 18:59 Intake Total 430 1365 Output Total 2250 1075 Balance -1820 290 Intake: IV Fluids 310 Zosyn 310 IVPB 55 Magnesium salfate 55 Oral 430 1000 Output: Urine 2250 1075 Other: # Bowel Movements 0 Assessment: 52 yo male with osteomyelitis R foot. Plan: - OR today - IV ABX- vanco, Zosyn, ID consult placed - NPO - Medically cleared for surgery. - No questions/ concerns. Active Medications Generic Name Dose Route Start Last Admin Trade Name Freq PRN Reason Stop Dose Admin Acetaminophen 650 mg 01/11/18 12:28 01/15/18 04:54 Tylenol Tab* PO 650 mg Q4H PRN Administration FEVER/PAIN Dextrose 12.5 gm 01/11/18 12:32 D50w Syringe 50 Ml* IV PUSH .FOR FS < 60 - SS PRN FS < 60 Heparin Sodium (Porcine) 5,000 units 01/11/18 14:00 01/15/18 06:33 Heparin Vial(*) SUBCUT 5,000 units Q8HR JOSE ENRIQUE Administration Hydralazine HCl 5 mg 01/14/18 21:13 Apresoline Iv* IV SLOW PU Q6H PRN BLOOD PRESSURE Piperacillin Sod/Tazobactam 500 mls @ 20.833 mls/hr 01/11/18 19:30 01/14/18 20:12 Sod 13.5 gm/ Sodium Chloride IVPB 20.833 mls/hr 1930 JOSE ENRIQUE Administration Sodium Chloride 1,000 mls @ 75 mls/hr 01/15/18 06:00 01/15/18 06:56 Ns 0.9% 1000 Ml* IV 75 mls/hr PER RATE JOSE ENRIQUE Administration Insulin Glargine 30 units 01/15/18 09:00 01/15/18 08:25 Lantus(*) SUBCUT Not Given Q24H [facility] Insulin Human Lispro 0 units 01/11/18 16:30 01/15/18 08:15 Humalog* SUBCUT Not Given ACHS [facility] Protocol Lidocaine/Sodium Bicarbonate 0.2 ml 01/15/18 11:05 Buffered Lidocaine 0.9% Syrin* INTRADERM 01/15/18 11:06 ONCE ONE Nifedipine 30 mg 01/12/18 09:00 01/15/18 08:24 Procardia Xl Tab* PO 30 mg DAILY [facility] Administration Omeprazole 20 mg 01/12/18 06:00 01/15/18 06:31 Prilosec Cap* PO 20 mg DAILY@0600 JOSE ENRIQUE Administration Ondansetron HCl 4 mg 01/11/18 12:28 01/15/18 07:04 Zofran Inj* IV 4 mg Q4H PRN Administration NAUSEA/VOMITING Oxycodone HCl 5 mg 01/11/18 12:33 Roxycodone Tab* PO Q4H PRN PAIN Pharmacy Consult 1 note 01/11/18 13:00 Zosyn Per Pharmacy* FOLLOW UP .ZOSYN PER PHARMACY [facility] Pharmacy Consult 1 note 01/12/18 08:45 Vancomycin Per Pharmacy* FOLLOW UP . PRN PER PROTOCOL Pharmacy Consult 1 note 01/15/18 06:00 Vancomycin Random Level* FOLLOW UP . PRN PER PROTOCOL Sertraline HCl 50 mg 01/14/18 09:00 01/15/18 08:24 Zoloft* PO 50 mg DAILY JOSE ENRIQUE Administration
[2018-01-15] MEDS ORDERED: Morphine INJ* 2 MG/ML 1 ML CARPUJECT IV ONE (10:16)
[2018-01-15] MEDS ORDERED: Nitroglycerin TAB 0.4 MG* 0.4 MG TAB SL PRN (10:18)
[2018-01-15] MEDS ORDERED: Morphine VIAL* 4 MG/ML VIAL (1 ml vial) IV ONE (10:19)
[2018-01-15] MEDS: hydrALAZINE IV* 20 MG/ML VIAL IV SLOW PU PRN (10:25)
--- NOTE | 2018-01-15 10:30 | PN ---
Progress Note - Progress Note Date of Service: 01/15/18 Note: Pt c/o pressure like CP localized in left chest and nausea despite Zofran. Declined morphine and stated that the only thing that can help it is "food". SBP 180, 02 sat 95% on RA, HR 80. Pt is AAOx3,in NAD, Resp: CTA b/l, CV: RRR, no murmur. EKG shows NSR, no ST changes Pt signed off to Jayne Solo
[2018-01-15] MEDS ORDERED: PROCHLORPERAZINE INJ 5 MG/ML 2 ML VIAL IM PRN (10:37)
--- NOTE | 2018-01-15 10:45 | PN ---
Subjective Date of Service: 01/15/18 Interval History: Patient seen and examined. Per RN, patient had continuous nausea and vomiting, then made statement of "crushing chest pain". EKG shows no acute ST segment changes, RSR and no ectopy. Chest pain is resolved with zofran and morphine. No associated diaphoresis or weakness or dizziness. Family History: Unchanged from Admission Social History: Unchanged from Admission Past Medical History: Unchanged from Admission Objective Active Medications: Acetaminophen (Tylenol Tab*) 650 mg PO Q4H PRN PRN Reason: FEVER/PAIN Last Admin: 01/15/18 04:54 Dose: 650 mg Dextrose (D50w Syringe 50 Ml*) 12.5 gm IV PUSH .FOR FS < 60 - SS PRN PRN Reason: FS < 60 Heparin Sodium (Porcine) (Heparin Vial(*)) 5,000 units SUBCUT Q8HR [facility] Last Admin: 01/15/18 06:33 Dose: 5,000 units Hydralazine HCl (Apresoline Iv*) 5 mg IV SLOW PU Q6H PRN PRN Reason: BLOOD PRESSURE Last Admin: 01/15/18 10:25 Dose: 5 mg Piperacillin Sod/Tazobactam (Sod 13.5 gm/ Sodium Chloride) 500 mls @ 20.833 mls /hr IVPB 1930 [facility] Last Admin: 01/14/18 20:12 Dose: 20.833 mls/hr Sodium Chloride (Ns 0.9% 1000 Ml*) 1,000 mls @ 75 mls/hr IV PER RATE [facility] Last Admin: 01/15/18 06:56 Dose: 75 mls/hr Insulin Glargine (Lantus(*)) 30 units SUBCUT Q24H [facility] Last Admin: 01/15/18 08:25 Dose: Not Given Insulin Human Lispro (Humalog*) 0 units SUBCUT ACHS [facility] PRN Reason: Protocol Last Admin: 01/15/18 08:15 Dose: Not Given Lidocaine/Sodium Bicarbonate (Buffered Lidocaine 0.9% Syrin*) 0.2 ml INTRADERM ONCE ONE Stop: 01/15/18 11:06 Nifedipine (Procardia Xl Tab*) 30 mg PO DAILY [facility] Last Admin: 01/15/18 08:24 Dose: 30 mg Nitroglycerin (Nitroglycerin Tab 0.4 Mg*) 0.4 mg SL Q5M PRN PRN Reason: ANGINA Omeprazole (Prilosec Cap*) 20 mg PO DAILY@0600 [facility] Last Admin: 01/15/18 06:31 Dose: 20 mg Ondansetron HCl (Zofran Inj*) 4 mg IV Q4H PRN PRN Reason: NAUSEA/VOMITING Last Admin: 01/15/18 07:04 Dose: 4 mg Oxycodone HCl (Roxycodone Tab*) 5 mg PO Q4H PRN PRN Reason: PAIN Pharmacy Consult (Zosyn Per Pharmacy*) 1 note FOLLOW UP .ZOSYN PER PHARMACY [facility] Pharmacy Consult (Vancomycin Per Pharmacy*) 1 note FOLLOW UP . PRN PRN Reason: PER PROTOCOL Pharmacy Consult (Vancomycin Random Level*) 1 note FOLLOW UP . PRN PRN Reason: PER PROTOCOL Prochlorperazine Edisylate (Compazine Inj*) 10 mg IM Q6H PRN PRN Reason: NAUSEA Sertraline HCl (Zoloft*) 50 mg PO DAILY [facility] Last Admin: 01/15/18 08:24 Dose: 50 mg Vital Signs - 8 hr 01/15/18 01/15/18 01/15/18 04:02 07:13 08:08 Temperature 97.9 F 98.1 F Pulse Rate 72 71 Respiratory 16 16 17 Rate Blood Pressure 156/82 180/93 (mmHg) O2 Sat by Pulse 97 94 Oximetry 01/15/18 01/15/18 01/15/18 08:19 10:16 10:24 Temperature Pulse Rate 63 70 Respiratory 16 Rate Blood Pressure 172/83 185/101 (mmHg) O2 Sat by Pulse 100 Oximetry 01/15/18 10:25 Temperature Pulse Rate Respiratory Rate Blood Pressure 184/102 (mmHg) O2 Sat by Pulse Oximetry Oxygen Devices in Use Now: None Appearance: Alert, mild distress Eyes: No Scleral Icterus, PERRLA Ears/Nose/Mouth/Throat: NL Teeth, Lips, Gums, Mucous Membranes Moist Neck: Trachea Midline Respiratory: Symmetrical Chest Expansion and Respiratory Effort, Clear to Auscultation Cardiovascular: NL Sounds; No Murmurs; No JVD, No Edema Extremities: No Edema Skin: - - dressing right foot CDI Neurological: Alert and Oriented x 3 Nutrition: - - NPO for surgery Result Diagrams: 01/15/18 05:24 01/15/18 05:24 Microbiology and Other Data: . Diagnostic Imaging: .Patient Name: AMMON HERNANDEZ Medical Record#: [id number] Ordering Physician: Robert Galarza MD Acct.#: [id number] : 1965 Age: 52 Sex: M Location: [facility] Exam Date: 01/09/18 ADM Status: REG REF Order Information: MRI LOWER EXTREMITY RIGHT W/O Accession Number: [id number] CPT: 67434 INDICATION: Other chronic osteomyelitis right ankle and foot. COMPARISON: Comparison is made with a prior x-ray study of the right foot from October 14, 2017 and prior MRI of the right foot from October 16, 2017. TECHNIQUE: Axial, sagittal and coronal T1 and T2-weighted images of the right foot were obtained. FINDINGS: The patient is status post remote amputation of the great toe at the level of the mid metatarsal and status post recent amputation of the foot at the level of the metatarsal-phalangeal joints of the second through fourth toes and status post amputation of the fifth at the level of the distal metatarsal. There is diffuse soft tissue swelling which is most prominent along the lateral aspect of the foot. There is an ill- defined fluid collection present along the lateral dorsal aspect of the foot located adjacent to the third, fourth and fifth metatarsals measuring 1.5 x 2.6 x 1.5 cm in size most consistent with a postoperative seroma or abscess. In addition there is bone marrow edema seen on T1 and T2-weighted images present in the third fourth and fifth metatarsals involving the distal two thirds of the bones. IMPRESSION: 1. BONE MARROW EDEMA IN THE THIRD FOURTH AND FIFTH METATARSALS MOST CONSISTENT WITH OSTEOMYELITIS LESS LIKELY POSTOPERATIVE EDEMA. 2. DIFFUSE SOFT TISSUE SWELLING AND FOCAL FLUID COLLECTION ADJACENT TO THE DISTAL THIRD FOURTH AND FIFTH METATARSALS MOST CONSISTENT WITH A POSTOPERATIVE SEROMA OR ABSCESS. <Electronically signed by Chay Dawkins MD in OV> 01/09/18 1233 Dictated By: Chay Dawkins MD Dictated Date/Time: 01/09/18 1233 Transcribed Date/Time: 01/09/18 1218 Copy to: CC:Robert Galarza MD; No Primary Care Phys,NOPCP Imaging - [facility] Imaging - [facility] Imaging - [facility] [id number] [place] [id number] ph ([phone]) ph ([phone]) ph ([phone]) 1 of EKG Data: . Assess/Plan/Problems-Billing Assessment: A 52 y/o male with Hx insulin-dependent DM with progression of right foot cellulitis and osteomylitis, s/p toe amputation, who was admitted for IV broad spectrum antibiotics and medical optimization for anticipated right trans- metatarsal amputation on Monday. Course now complictaed by vomiting and chest pain this AM. - Patient Problems (1) Osteomyelitis of ankle or foot Code(s): M86.9 - OSTEOMYELITIS, UNSPECIFIED SNOMED Code(s): 96878251 Comment: - Continue Vanco and Zosyn - Dressing changes as needed - Planned for midfoot amputation - RCRI preoperative risk score at admission is class III risk placing him at a 6.6% risk of major cardiac event. Echo 12/2016 showing EF 55-60%, no valvular abnormalities, Nuclear Cardiac Stress test 12/2016 placing him at low risk. Pre- op EKG sinus rhythm with noted ST changes; compared to prior EKG no changes. - Given n/v and chest pain today, would recommend cycling troponins. I do not believe this pain is cardiac in nature, it is likely related to his n/v, however , will discuss with surgery about postponing pending stress test. (2) CKD (chronic kidney disease) Code(s): N18.9 - CHRONIC KIDNEY DISEASE, UNSPECIFIED SNOMED Code(s): 761740854 Comment: - Likely due to combination of DM and HTN. Per pt starting seeing a section housekeeper 6 months in the [place] area (does not remember the name). - Creatinine at baseline - Nutrition consult for renal diet. - Renally dose medications (3) COPD (chronic obstructive pulmonary disease) Code(s): J44.9 - CHRONIC OBSTRUCTIVE PULMONARY DISEASE, UNSPECIFIED SNOMED Code(s): 19332649 Comment: - Not in exacerbation (4) Diabetes Code(s): E11.9 - TYPE 2 DIABETES MELLITUS WITHOUT COMPLICATIONS SNOMED Code(s) : 18081118 Comment: - Lantus at half dose while NPO (30 units Qam) in prep for surgery, Resume Humolog per sliding scale post-op - Worsening hyperglycemia secondary to infection - Check A1c (5) Anemia of chronic disease SNOMED Code(s): 552005848 Comment: - Chronic, stable (6) Hypertension Code(s): I10 - ESSENTIAL (PRIMARY) HYPERTENSION SNOMED Code(s): 15867295 Comment: - Continue Procardia, HCTZ - Continue to hold Lisinopril in the setting of hyperkalemia, again, the pt reports hx of hyperK+, this may not be the best medication for this patient. - continue to monitor blood pressures, hydralyzine prn (7) DVT prophylaxis Code(s): OAD5310 - SNOMED Code(s): 816277958 Comment: - HSQ (8) Full code status Code(s): Z78.9 - OTHER SPECIFIED HEALTH STATUS SNOMED Code(s): 714373715 Status and Disposition: Inpatient for IV antibiotics and medical optimization. Will follow up with ortho regarding postponing procedure until tomorrow. Counseling and/or Coordination of Care Minutes: coordinated with patient and staff
[2018-01-15] MEDS ORDERED: Buffered Lidocaine 0.9% SYRIN* 5 ML/SYR SYRINGE INTRADERM ONE (11:05)
[2018-01-15 11:28] LABS: EGFR Non-African American 20.4 (>60)
[2018-01-15] MEDS ORDERED: Vancomycin(*) 1,000 MG in NS 0.9% 250 ML* 250 ML IVPB ONE (12:00)
--- NOTE | 2018-01-15 12:58 | CONS ---
CONSULTATION REPORT: DATE OF CONSULT: 01/15/18 REQUESTING PHYSICIAN: Dr. Hung. CONSULTING SERVICE: Infectious Disease. REASON FOR CONSULT: Right foot infection. IMPRESSION: 1. Status post second through five right toe disarticulation, 10/16/17, and a history of previous right first metatarsophalangeal joint disarticulation. Culture was negative, he was discharged on a course of oral antibiotics, he was doing okay and now has right plantar and distal foot cellulitis and probable abscess with acute osteomyelitis. Some wound drainage is growing Staphylococcus aureus. 2. Chronic kidney disease, stage 4. 3. Diabetes with neuropathy. RECOMMENDATION: Stop vancomycin, we will continue Zosyn by continuous infusion and then he is going to have incision and debridement or transmetatarsal amputation after his current chest pain evaluation. Check an ankle-brachial index. HISTORY OF PRESENT ILLNESS: A 52-year-old diabetic admitted with right foot infection. He was here in October and had the second through fifth toes disarticulated and previously, had the first toe done. Things seemed to be going well and then over the last couple of weeks, developed some redness about the incision site, which was healed except for one area in the middle. He had a culture taken from that area on 12/28/17 that showed gram-positive cocci and the cultures growing Staph aureus, methicillin sensitive. He was on oral antibiotics as an outpatient, but had continued erythema. He had MRI with findings as noted above. So, he was admitted to the hospital on 01/11/18. He has been afebrile since he has been here, started on vancomycin and Zosyn, and has gradually been improved going as far as his malaise, headache, and chills. Today, he had some chest pain. He has had a troponin drawn, is 0.01. He has been seen by the hospitalist service currently. Chest pain has resolved. PAST MEDICAL HISTORY: 1. Diabetes with peripheral neuropathy. 2. Status post left transmetatarsal amputation. 3. Status post first through fifth right toe disarticulations. 4. Stage 4 chronic kidney disease. 5. Hyperlipidemia. 6. Hypertension. 7. Anemia. 8. Depression. 9. Peripheral vascular disease. MEDICATIONS: 1. Tylenol. 2. Heparin subcutaneous injection. 3. Hydralazine. 4. Insulin glargine. 5. Magnesium sulfate. 6. Nitroglycerin as needed. 7. Nifedipine. 8. Zosyn 13.5 g IV via continuous infusion. 9. Oxycodone. 10. Sertraline. 11. Vancomycin. ALLERGIES: BACTRIM. FAMILY HISTORY: No recurrent infections. Father had diabetes. SOCIAL HISTORY: He lives in [place]. He is . Nonsmoker. REVIEW OF SYSTEMS: A 14-point review of systems was all negative except as noted above. PHYSICAL EXAM: Vital Signs: Temperature 37, heart rate 70, respiratory rate 16 , blood pressure 180/100, oxygen saturation 100% on room air. General: He is awake, not in distress. Neurologic: He is oriented x3. Follows all commands. HEENT: There is no conjunctival hemorrhage. Oropharynx without lesions. Neck: Supple without mass. Lymph Nodes: There is no cervical, supraclavicular, inguinal, axillary, or epitrochlear lymphadenopathy. Heart: Regular rate and rhythm without murmurs, rubs, or gallops. Lungs are clear to auscultation bilaterally. Abdomen: Soft, nontender, and nondistended. There are bowel sounds present. Skin: There is no rash or splinter hemorrhages. Musculoskeletal: There is no spine tenderness to palpation. The right foot disarticulation incision has healed except for in the middle, has about 1-cm open area with some slight purulent drainage and surrounding erythema. There is no tenderness or decreased sensation to light touch around it. On the plantar aspect of the mid foot, there is another 2-cm soft area, which is slightly fluctuant. Please see impressions and recommendations outlined above, which I have discussed with Mr. Galo. Thanks for asking me to see him in consultation. [id number]/[facility] #: [id number] [facility]
[2018-01-15] MEDS ORDERED: Famotidine IV* 10 MG/ML 2 ML (20 mg) IV SLOW PU SCH (13:00)
--- NOTE | 2018-01-15 15:00 | RAD ---
INDICATIONS: Ulceration, gangrene COMPARISONS: October 19, 2013 TECHNIQUE: Ankle-brachial indices and Doppler tracings were obtained of the lower extremities bilaterally. FINDINGS: Right: The posterior tibial ankle brachial index is 0.74. The dorsalis pedis ankle brachial index is 0.96. The posterior tibial waveform is triphasic. The dorsalis pedis waveform is triphasic. The amplitudes are decreased in both territories.. Left: The posterior tibial ankle brachial index is 0.79. The dorsalis pedis ankle brachial index is 1.06. The posterior tibial waveform is biphasic. The dorsalis pedis waveform is biphasic the amplitudes are decreased in both territories.. OTHER: There has been mild progression of disease compared to the 2013 examination. IMPRESSION: DECREASED ANKLE-BRACHIAL INDICES AND DAMPENING OF THE DISTAL WAVEFORMS BILATERALLY, CONSISTENT WITH MODERATE PERIPHERAL ARTERIAL OCCLUSIVE DISEASE, SLIGHTLY PROGRESSED COMPARED TO OCTOBER 09, 2013
--- NOTE | 2018-01-15 15:18 | PN ---
PROGRESS NOTE: DATE OF SERVICE: 01/15/18 HISTORY: Tanner has been here for 4 days now with ongoing Zosyn antibiotic. No fevers, chills, no malaise generalized. Improved clinical course. The plan today was to revise his right foot amputation, but he had developed sudden onset chest pain this morning and is having a workup underway. He is to get a cardiac stress test in the morning. We will see him today and make him n.p.o. after midnight today and see if he could have a surgery tomorrow. [id number]/[facility] #: [id number] KEDAR
[2018-01-15] MEDS: Piperacillin/Tazobactam 13.5 GM IV 24 hour continuous infusion IVPB SCH ×2 (20:58)
[2018-01-15] MEDS: PROCHLORPERAZINE INJ 5 MG/ML 2 ML VIAL IV PRN (23:28)
[2018-01-16] MEDS ORDERED: Zolpidem TAB* 5 MG PO PRN (00:14)
[2018-01-16] MEDS: Omeprazole CAP* 20 MG PO SCH (05:54)
[2018-01-16] MEDS: Heparin VIAL(*) 5000 UNITS/ML VIAL (FIVE THOUSAND) SUBCUT SCH ×2 (05:55→14:22)
[2018-01-16] MEDS: hydrALAZINE IV* 20 MG/ML VIAL IV SLOW PU PRN ×2 (07:42→21:15)
[2018-01-16] MEDS: Ondansetron INJ* 2 MG/ML VIAL IV PRN (07:42)
[2018-01-16] MEDS: Insulin LISPRO* 1 UNITS UNIT SUBCUT SCH ×4 (07:47→23:06)
[2018-01-16] MEDS ORDERED: Regadenoson* 0.4 MG/5 ML SYRINGE ONE (09:41)
[2018-01-16] MEDS ORDERED: Aminophylline IV* 25 MG/ML 10 ML VIAL ONE (09:42)
[2018-01-16] MEDS: Insulin GLARGINE(*) 1 UNITS UNIT SUBCUT SCH (10:20)
[2018-01-16] MEDS: Famotidine IV* 10 MG/ML 2 ML (20 mg) IV SLOW PU SCH (10:20)
[2018-01-16] MEDS: NIFEdipine ER TAB* 30 MG PO SCH (10:20)
[2018-01-16] MEDS: Sertraline* 50 MG TAB PO SCH (10:20)
--- NOTE | 2018-01-16 10:29 | RAD ---
INDICATION: Chest pain COMPARISON: January 18, 2017 TECHNIQUE: Rest images were acquired following the intravenous injection of 25.4 millicuries of technetium 99m tetrofosmin. Pharmacologic stress images were acquired following the intravenous administration of 25.4 millicuries of technetium 99m tetrofosmin. FINDINGS: There is an inferolateral defect seen without attenuation correction only. This suggests artifact. Similar findings were present previously. The current examination shows no convincing evidence of a fixed or ischemic defect on the tomographic images which are believed to be the most reliable images The cardiac chamber size is mild a prominent. There are no focal wall motion abnormalities. The ejection fraction is calculated at 53 % during stress and 52% at rest. This is at the lower range of normal and is unchanged. IMPRESSION: 1. Mildly prominent uterus size with low-normal ejection fraction, unchanged. 2. No definitive ischemia (see above). 3. Overall no significant interval change ASSESSMENT: LOW-RISK Based on imaging criteria from ACC/AHA 2002 Guideline Update for the Management of Patients With Chronic Stable Angina Table 23. Noninvasive Risk Stratification.
[2018-01-16] MEDS: PROCHLORPERAZINE INJ 5 MG/ML 2 ML VIAL IV PRN (11:16)
[2018-01-16] MEDS ORDERED: LORazepam INJ* 2 MG/ML 1 ML VIAL IV PUSH ONE (13:00)
--- NOTE | 2018-01-16 13:11 | PN ---
Subjective Date of Service: 01/16/18 Interval History: Patient seen and examined. Has had vomiting persistent since yesterday. States he feels it is because he is nervous about the surgery. Initially responsive to anti-emetics, but still dry-heaving. No chest pain, no SOB, no further complaints. Family History: Unchanged from Admission Social History: Unchanged from Admission Past Medical History: Unchanged from Admission Objective Active Medications: Acetaminophen (Tylenol Tab*) 650 mg PO Q4H PRN PRN Reason: FEVER/PAIN Last Admin: 01/15/18 19:33 Dose: 650 mg Dextrose (D50w Syringe 50 Ml*) 12.5 gm IV PUSH .FOR FS < 60 - SS PRN PRN Reason: FS < 60 Famotidine (Pepcid Iv*) 20 mg IV SLOW PU DAILY [facility] Last Admin: 01/16/18 10:20 Dose: 20 mg Heparin Sodium (Porcine) (Heparin Vial(*)) 5,000 units SUBCUT Q8HR [facility] Last Admin: 01/16/18 05:55 Dose: 5,000 units Hydralazine HCl (Apresoline Iv*) 5 mg IV SLOW PU Q6H PRN PRN Reason: BLOOD PRESSURE Last Admin: 01/16/18 07:42 Dose: 5 mg Piperacillin Sod/Tazobactam (Sod 13.5 gm/ Sodium Chloride) 500 mls @ 20.833 mls /hr IVPB 1930 [facility] Last Admin: 01/15/18 20:58 Dose: 20.833 mls/hr Sodium Chloride (Ns 0.9% 1000 Ml*) 1,000 mls @ 75 mls/hr IV PER RATE [facility] Last Admin: 01/15/18 19:33 Dose: 75 mls/hr Insulin Glargine (Lantus(*)) 30 units SUBCUT Q24H [facility] Last Admin: 01/16/18 10:20 Dose: 30 units Insulin Human Lispro (Humalog*) 0 units SUBCUT ACHS [facility] PRN Reason: Protocol Last Admin: 01/16/18 12:42 Dose: 3 units Nifedipine (Procardia Xl Tab*) 30 mg PO DAILY [facility] Last Admin: 01/16/18 10:20 Dose: 30 mg Nitroglycerin (Nitroglycerin Tab 0.4 Mg*) 0.4 mg SL Q5M PRN PRN Reason: ANGINA Omeprazole (Prilosec Cap*) 20 mg PO DAILY@0600 [facility] Last Admin: 01/16/18 05:54 Dose: 20 mg Ondansetron HCl (Zofran Inj*) 4 mg IV Q4H PRN PRN Reason: NAUSEA/VOMITING Last Admin: 01/16/18 07:42 Dose: 4 mg Oxycodone HCl (Roxycodone Tab*) 5 mg PO Q4H PRN PRN Reason: PAIN Pharmacy Consult (Zosyn Per Pharmacy*) 1 note FOLLOW UP .ZOSYN PER PHARMACY [facility] Prochlorperazine Edisylate (Compazine Inj*) 10 mg IV Q6H PRN PRN Reason: NAUSEA/VOMITING Last Admin: 01/16/18 11:16 Dose: 10 mg Sertraline HCl (Zoloft*) 50 mg PO DAILY [facility] Last Admin: 01/16/18 10:20 Dose: 50 mg Zolpidem Tartrate (Ambien Tab*) 5 mg PO BEDTIME PRN PRN Reason: INSOMNIA Last Admin: 01/16/18 00:51 Dose: 5 mg Vital Signs - 8 hr 01/16/18 01/16/18 01/16/18 07:18 07:29 12:42 Temperature 98.5 F Pulse Rate 80 Respiratory 18 18 16 Rate Blood Pressure 181/97 (mmHg) O2 Sat by Pulse 98 Oximetry Oxygen Devices in Use Now: None Appearance: Alert, mild distress Eyes: No Scleral Icterus, PERRLA Ears/Nose/Mouth/Throat: Mucous Membranes Moist Neck: Trachea Midline Respiratory: Symmetrical Chest Expansion and Respiratory Effort, Clear to Auscultation Cardiovascular: NL Sounds; No Murmurs; No JVD, RRR Abdominal: NL Sounds; No Tenderness; No Distention Neurological: Alert and Oriented x 3, NL Sensation Nutrition: - - NPO for procedure Result Diagrams: 01/15/18 05:24 01/15/18 10:43 Microbiology and Other Data: . Diagnostic Imaging: .Patient Name: AMMON HERNANDEZ Medical Record#: [id number] Ordering Physician: Robert Galarza MD Acct.#: [id number] : 1965 Age: 52 Sex: M Location: [facility] Exam Date: 01/09/18 ADM Status: REG REF Order Information: MRI LOWER EXTREMITY RIGHT W/O Accession Number: [id number] CPT: 09126 INDICATION: Other chronic osteomyelitis right ankle and foot. COMPARISON: Comparison is made with a prior x-ray study of the right foot from October 14, 2017 and prior MRI of the right foot from October 16, 2017. TECHNIQUE: Axial, sagittal and coronal T1 and T2-weighted images of the right foot were obtained. FINDINGS: The patient is status post remote amputation of the great toe at the level of the mid metatarsal and status post recent amputation of the foot at the level of the metatarsal-phalangeal joints of the second through fourth toes and status post amputation of the fifth at the level of the distal metatarsal. There is diffuse soft tissue swelling which is most prominent along the lateral aspect of the foot. There is an ill- defined fluid collection present along the lateral dorsal aspect of the foot located adjacent to the third, fourth and fifth metatarsals measuring 1.5 x 2.6 x 1.5 cm in size most consistent with a postoperative seroma or abscess. In addition there is bone marrow edema seen on T1 and T2-weighted images present in the third fourth and fifth metatarsals involving the distal two thirds of the bones. IMPRESSION: 1. BONE MARROW EDEMA IN THE THIRD FOURTH AND FIFTH METATARSALS MOST CONSISTENT WITH OSTEOMYELITIS LESS LIKELY POSTOPERATIVE EDEMA. 2. DIFFUSE SOFT TISSUE SWELLING AND FOCAL FLUID COLLECTION ADJACENT TO THE DISTAL THIRD FOURTH AND FIFTH METATARSALS MOST CONSISTENT WITH A POSTOPERATIVE SEROMA OR ABSCESS. <Electronically signed by Chay Dawkins MD in OV> 01/09/18 1233 Dictated By: Chay Dawkins MD Dictated Date/Time: 01/09/18 1233 Transcribed Date/Time: 01/09/18 1218 Copy to: CC:Robert Galarza MD; No Primary Care Phys,NOPCP Imaging - [facility] Imaging - [facility] Imaging - [facility] [address] [address] ph [phone]) ph ([phone]) ph ([phone]) 1 of EKG Data: .Patient Name: AMMON HERNANDEZ Medical Record#: [id number] Ordering Physician: Bárbara Solo NP Acct.#: [id number] : 1965 Age: 52 Sex: M Location: [facility]AY [facility]IT Exam Date: 01/16/18 1249 ADM Status: ADM IN Order Information: NUCLEAR CARDIAC STRESS TEST Accession Number: [id number] CPT: 68479 ADDENDUM Voice recognition error: Correction for impression #1. IMPRESSION: 1. Mildly prominent CHAMBER size with low-normal ejection fraction, unchanged. <Electronically signed by Padilla Peralta MD in OV>01/16/18 105 Dictated by: Padilla Peralta MD Dictated Date/Time:01/16/18 105 Transcribed Date/Time: 01/16/18 1056 Copy to: Doug Martinez MD; Bárbara Solo NP; Robert Thomas MD; Robert Galarza MD; No Primary Care Phys,NOPCP INDICATION: Chest pain COMPARISON: January 18, 2017 TECHNIQUE: Rest images were acquired following the intravenous injection of 25.4 millicuries of technetium 99m tetrofosmin. Pharmacologic stress images were acquired following the intravenous administration of 25.4 millicuries of technetium 99m tetrofosmin. FINDINGS: There is an inferolateral defect seen without attenuation correction only. This suggests artifact. Similar findings were present previously. The current examination shows no convincing evidence of a fixed or ischemic defect on the tomographic images which are believed to be the most reliable images The cardiac chamber size is mild a prominent. There are no focal wall motion abnormalities. The ejection fraction is calculated at 53 % during stress and 52 % at rest. This is at the lower range of normal and is unchanged. IMPRESSION: 1. Mildly prominent uterus size with low-normal ejection fraction, unchanged. 2. No definitive ischemia (see above). 3. Overall no significant interval change ASSESSMENT: LOW-RISK Based on imaging criteria from ACC/AHA 2002 Guideline Update for the Management of Patients With Chronic Stable Angina Table 23. Noninvasive Risk Stratification. <Electronically signed by Padilla Peralta MD in OV> 01/16/18 1026 Dictated By: Padilla Peralta MD Dictated Date/Time: 01/16/18 1026 1 of 2 Assess/Plan/Problems-Billing Assessment: A 52 y/o male with Hx insulin-dependent DM with progression of right foot cellulitis and osteomylitis, s/p toe amputation, who was admitted for IV broad spectrum antibiotics and medical optimization for anticipated right trans- metatarsal amputation that was postponed 2/2 vomiting and chest pain 01/15/2018. - Patient Problems (1) Osteomyelitis of ankle or foot Code(s): M86.9 - OSTEOMYELITIS, UNSPECIFIED SNOMED Code(s): 32249138 Comment: - Zosyn continuous infusion as per ID - Dressing changes as needed - Plan for mid-foot amputation today with Dr. Galarza (2) Chest pain Current Visit: Yes Status: Acute Code(s): R07.9 - CHEST PAIN, UNSPECIFIED SNOMED Code(s): 58731914 Comment: - Resolved, likely due to persistent nausea and vomiting - EKG 01/15/[address] segment Changes - Echo 12/2016 showing EF 55-60% with no valvular abnormalities - Troponin negative x3 yesterday 0.01/0.01/0.01 - Nuclear Stress Test dated 01/16/2018 with Low Risk for ACS - RCRI Risk remains at 6.6% risk for major cardiac event, OR and anesthesia aware - Patient CV status is medically optimized for surgery today, standard surgical risks apply and should be addressed by ortho/surgical team. (3) Vomiting Code(s): R11.10 - VOMITING, UNSPECIFIED SNOMED Code(s): 118223358 Comment: - Alternate compazine and zofran - Ativan 1mg IV given also with good effect - Remain NPO for procedure with IVNS (4) CKD (chronic kidney disease) Code(s): N18.9 - CHRONIC KIDNEY DISEASE, UNSPECIFIED SNOMED Code(s): 062453967 Comment: - Likely due to combination of DM and HTN. Per pt starting seeing a smelter charger 6 months in the [place] area (does not remember the name). - Creatinine at baseline - Nutrition consult for renal diet - Renally dose medications (5) COPD (chronic obstructive pulmonary disease) Code(s): J44.9 - CHRONIC OBSTRUCTIVE PULMONARY DISEASE, UNSPECIFIED SNOMED Code(s): 95811757 Comment: - Not in exacerbation (6) Diabetes Code(s): E11.9 - TYPE 2 DIABETES MELLITUS WITHOUT COMPLICATIONS SNOMED Code(s) : 52274704 Comment: - Lantus at half dose while NPO (30 units Qam) in prep for surgery - Resume lispro SS post-op - Worsening hyperglycemia secondary to infection - Follow up A1c (7) Anemia of chronic disease SNOMED Code(s): 090815472 Comment: - Chronic, stable (8) Hypertension Code(s): I10 - ESSENTIAL (PRIMARY) HYPERTENSION SNOMED Code(s): 57920688 Comment: - Continue Procardia, HCTZ - Continue to hold Lisinopril in the setting of hyperkalemia, again, the pt reports hx of hyperK+, this may not be the best medication for this patient. - continue to monitor blood pressures, hydralyzine prn (9) DVT prophylaxis Code(s): ELC5032 - SNOMED Code(s): 896610068 Comment: - HSQ, held today (10) Full code status Code(s): Z78.9 - OTHER SPECIFIED HEALTH STATUS SNOMED Code(s): 909177427 Status and Disposition: Inpatient for IV antibiotics and surgery today.
[2018-01-16] MEDS ORDERED: fentaNYL* 50 MCG/ML 2 ML VIAL (100 MCG VIAL) ONE (13:12)
[2018-01-16] MEDS: NS 0.9% 1000 ML* 1,000 ML IV SCH (13:12)
[2018-01-16] MEDS ORDERED: Midazolam* 1 MG/ML 5 ML VIAL (5 MG) ONE (13:12)
[2018-01-16] MEDS ORDERED: Ondansetron INJ* 2 MG/ML VIAL ONE (13:14)
[2018-01-16] MEDS ORDERED: Propofol* 10 MG/ML 20 ML BTL IV PUSH ONE (13:14)
[2018-01-16] MEDS ORDERED: Lidocaine 2% PF * 5 ML VIAL ONE (13:14)
[2018-01-16] MEDS ORDERED: DiMENhydriNATE IV* 50 MG/ML VIAL IV PUSH PRN (13:57)
[2018-01-16] MEDS ORDERED: Acetaminophen TAB* 325 MG PO PRN (13:57)
[2018-01-16] MEDS ORDERED: HYDROmorphone INJ* 1 MG/ML CARPUJECT SYRINGE IV PRN (13:57)
[2018-01-16] MEDS ORDERED: oxyCODONE TAB* 5 MG TAB PO PRN (13:57)
[2018-01-16] MEDS ORDERED: Naloxone* 0.4 MG/ML 1 ML VIAL IV PRN (13:57)
[2018-01-16] MEDS ORDERED: Lidocaine 2% PF* 10 ML AMP ONE ×2 (14:03→14:08)
[2018-01-16] MEDS ORDERED: Docusate CAP* 100 MG PO PRN (16:58)
[2018-01-16] MEDS: Piperacillin/Tazobactam 13.5 GM IV 24 hour continuous infusion IVPB SCH ×2 (20:29)
[2018-01-16] MEDS: oxyCODONE TAB* 5 MG TAB PO PRN (21:15)
--- NOTE | 2018-01-16 22:02 | OP ---
DATE OF OPERATION: 01/16/18 - ROOM #346 DATE OF : 69 ATTENDING SURGEON: Robert Galarza MD BAD CLOTH CHECKER: DORIS Murillo PRE-OP DIAGNOSIS: Right forefoot infection, osteomyelitis. POST-OP DIAGNOSIS: Right forefoot infection, osteomyelitis. OPERATIVE PROCEDURE: Revision, amputation right mid foot with Lisfranc disarticulation and percutaneous tendo-Achilles release. DESCRIPTION OF PROCEDURE: The patient was taken to the operating room where transverse elliptical incision was made over the right mid foot. We excised the necrotic plantar area with flap and dissected dorsally right back to to the TMT joints. These were disarticulated and delivered with the forefoot to pathology. Deep cultures were sent. We dropped the tourniquet and obtained hemostasis. We then used a 3 L pulsatile lavage and closed dorsal to plantar flaps with 0 Vicryl suture and 2-0 Prolene for the skin and interrupted sutures. A compression dressing was then applied. [id number]/CPS #: [id number] MTDD
[2018-01-17] MEDS: oxyCODONE TAB* 5 MG TAB PO PRN (01:14)
[2018-01-17] MEDS: Ondansetron INJ* 2 MG/ML VIAL IV PRN (01:44)
[2018-01-17] MEDS: NS 0.9% 1000 ML* 1,000 ML IV SCH (02:55)
[2018-01-17] MEDS: Omeprazole CAP* 20 MG PO SCH (06:46)
[2018-01-17] MEDS ORDERED: diPHENhydraMINE PO* 50 MG PO PRN (07:36)
[2018-01-17] MEDS ORDERED: diPHENhydraMINE PO* 50 MG ONE (07:38)
[2018-01-17 08:15] VITALS: BP 189/103
[2018-01-17] MEDS: hydrALAZINE IV* 20 MG/ML VIAL IV SLOW PU PRN (08:29)
[2018-01-17] MEDS: Sertraline* 50 MG TAB PO SCH (08:31)
[2018-01-17] MEDS: Insulin GLARGINE(*) 1 UNITS UNIT SUBCUT SCH (08:31)
[2018-01-17] MEDS: Famotidine IV* 10 MG/ML 2 ML (20 mg) IV SLOW PU SCH (08:31)
[2018-01-17] MEDS: NIFEdipine ER TAB* 30 MG PO SCH (08:31)
[2018-01-17] MEDS: Insulin LISPRO* 1 UNITS UNIT SUBCUT SCH (08:32)
[2018-01-17 09:32] LABS: ABS Basophils 0 10^3/ul (0-0.2); ABS Eosinophils 0.1 10^3/ul (0-0.6); ABS Lymphocytes 0.9 10^3/ul (1.0-4.8); ABS Monocytes 0.6 10^3/ul (0-0.8); ABS Neutrophils 4.8 10^3/ul (1.5-7.7); ABS Nucleated RBC 0 10^3/ul; Eosinophil % 1.1 % (0-6); Hematocrit 25 % (42-52); Hemoglobin 8.1 g/dl (14.0-18.0); Lymphocyte % 13.6 % (25-47); Mean Corpuscular HGB Conc 32 g/dl (31-36); Mean Corpuscular Hemoglobin 28 pg (27-31); Mean Corpuscular Volume 85 fL (80-94); Mean Platelet Volume 7.3 um3 (7.4-10.4); Nucleated Red Blood Cells % 0; Platelet Count 222 10^3/ul (150-450); Red Blood Count 2.95 10^6/ul (4.0-5.4); Red Cell Distribution Width 16 % (10.5-15); White Blood Count 6.4 10^3/ul (3.5-10.8)
[2018-01-17 09:36] LABS: EGFR Non-African American 21.4 (>60)
--- NOTE | 2018-01-17 10:19 | PN ---
Progress Note - Progress Note Date of Service: 01/17/18 SOAP: Subjective: CC: right foot infection HPI: 52 year old diabetic with previous toe disarticulation admitted with plantar and distal foot infection now s/p TMA. No fever, rash, or diarrhea, feels well. Objective: Vital Signs Temp 36.7 C 01/17/18 07:25 Pulse 85 01/17/18 07:25 Resp 18 01/17/18 10:15 BP 189/103 01/17/18 07:25 Pulse Ox 98 01/17/18 07:25 Intake & Output 01/16/18 01/17/18 01/17/18 18:59 06:59 18:59 Intake Total 1000 5808 Output Total 900 650 400 Balance 100 5158 -400 Intake: IV Fluids 1000 438 LR 800 Zosyn 438 IVPB 1989 NS (0.9%) 1989 Oral 3380 Output: Urine 900 650 400 Other: # Bowel Movements 0 1 Estimated Stool Amount Medium Gen:awake, no distress HEENT: no thrush Heart:RRR no murmur Lungs:CTA BL Abd:+BS NTND soft Skin: no rash MSK: no spine tenderness Laboratory Results - last 24 hr 01/16/18 01/16/18 01/16/18 12:21 13:38 15:27 WBC RBC Hgb Hct MCV MCH MCHC RDW Plt Count MPV Neut % (Auto) Lymph % (Auto) [place] % (Auto) Eos % (Auto) Baso % (Auto) Absolute Neuts (auto) Absolute Lymphs (auto) Absolute Monos (auto) Absolute Eos (auto) Absolute Basos (auto) Absolute Nucleated RBC Nucleated RBC % Sodium Potassium Chloride Carbon Dioxide Anion Gap BUN Creatinine Est GFR ( Amer) Est GFR (Non-Af Amer) BUN/Creatinine Ratio Glucose POC Glucose (mg/dL) 154 H 154 H 133 H Calcium 01/16/18 01/16/18 01/17/18 16:46 22:58 08:11 WBC RBC Hgb Hct MCV MCH MCHC RDW Plt Count MPV Neut % (Auto) Lymph % (Auto) [place] % (Auto) Eos % (Auto) Baso % (Auto) Absolute Neuts (auto) Absolute Lymphs (auto) Absolute Monos (auto) Absolute Eos (auto) Absolute Basos (auto) Absolute Nucleated RBC Nucleated RBC % Sodium Potassium Chloride Carbon Dioxide Anion Gap BUN Creatinine Est GFR ( Amer) Est GFR (Non-Af Amer) BUN/Creatinine Ratio Glucose POC Glucose (mg/dL) 138 H 138 H 164 H Calcium 01/17/18 01/17/18 08:57 08:57 WBC 6.4 RBC 2.95 L Hgb 8.1 L Hct 25 L MCV 85 MCH 28 MCHC 32 RDW 16 H Plt Count 222 MPV 7.3 L Neut % (Auto) 74.9 Lymph % (Auto) 13.6 L Vernon % (Auto) 9.7 H Eos % (Auto) 1.1 Baso % (Auto) 0.7 Absolute Neuts (auto) 4.8 Absolute Lymphs (auto) 0.9 L Absolute Monos (auto) 0.6 Absolute Eos (auto) 0.1 Absolute Basos (auto) 0 Absolute Nucleated RBC 0 Nucleated RBC % 0 Sodium 134 L Potassium 4.3 Chloride 108 Carbon Dioxide 21 L Anion Gap 5 BUN 33 H Creatinine 3.11 H Est GFR ( Amer) 27.5 Est GFR (Non-Af Amer) 21.4 BUN/Creatinine Ratio 10.6 Glucose 162 H POC Glucose (mg/dL) Calcium 8.4 L Assessment: 1. right foot cellulitis, myositis, abscess, acute non hematogenous ostemyelitis s/p TMA 2. Diabetes with neuropathy 3. obesity 4. PAD Plan: 1. levaquin 500 mg daily (GFR 20 but 340#) and flagyl 500 mg po bid for 21 days 2. outpatient vascular evaluation 3. fu with me 2 weeks Discussed with Yandy GEORGE
[2018-01-17] MEDS ORDERED: Heparin VIAL(*) 5000 UNITS/ML VIAL (FIVE THOUSAND) SUBCUT SCH (12:00)
--- NOTE | 2018-01-17 13:51 | PN ---
Progress Note - Progress Note Date of Service: 01/17/18 SOAP: Subjective: []Patient seen at bedside. He feels well and desires discharge home. Denies RLE pain, fever, chills, CP, SOB, dizziness. Objective: []General: Well appearing, NAD RLE: Splint CDI. Proximal aspect padded as it was irritating leg. Confirms comfort after added padding. No breakdown or erythema of exposed skin. nontender proximal to splint LLE: Nonerythematous, nontender Vital Signs Temp 98.1 F 01/17/18 07:25 Pulse 85 01/17/18 07:25 Resp 18 01/17/18 10:15 BP 189/103 01/17/18 07:25 Pulse Ox 98 01/17/18 07:25 Intake & Output 01/16/18 01/17/18 01/17/18 18:59 06:59 18:59 Intake Total 1000 5808 1056 Output Total 900 650 400 Balance 100 5158 656 Intake: IV Fluids 999 438 LR 800 Zosyn 438 IVPB 1989 686 NS (0.9%) 1989 253 Zosyn 433 Oral 3380 370 Output: Urine 900 650 400 Other: # Bowel Movements 0 1 Estimated Stool Amount Medium Laboratory Last Values WBC 6.4 10^3/ul (3.5-10.8) 01/17/18 08:57 RBC 2.95 10^6/ul (4.0-5.4) L 01/17/18 08:57 Hgb 8.1 g/dl (14.0-18.0) L 01/17/18 08:57 Hct 25 % (42-52) L 01/17/18 08:57 MCV 85 fL (80-94) 01/17/18 08:57 MCH 28 pg (27-31) 01/17/18 08:57 MCHC 32 g/dl (31-36) 01/17/18 08:57 RDW 16 % (10.5-15) H 01/17/18 08:57 Plt Count 222 10^3/ul (150-450) 01/17/18 08:57 MPV 7.3 um3 (7.4-10.4) L 01/17/18 08:57 Neut % (Auto) 74.9 % (38-83) 01/17/18 08:57 Lymph % (Auto) 13.6 % (25-47) L 01/17/18 08:57 [place] % (Auto) 9.7 % (0-7) H 01/17/18 08:57 Eos % (Auto) 1.1 % (0-6) 01/17/18 08:57 Baso % (Auto) 0.7 % (0-2) 01/17/18 08:57 Absolute Neuts (auto) 4.8 10^3/ul (1.5-7.7) 01/17/18 08:57 Absolute Lymphs (auto) 0.9 10^3/ul (1.0-4.8) L 01/17/18 08:57 Absolute Monos (auto) 0.6 10^3/ul (0-0.8) 01/17/18 08:57 Absolute Eos (auto) 0.1 10^3/ul (0-0.6) 01/17/18 08:57 Absolute Basos (auto) 0 10^3/ul (0-0.2) 01/17/18 08:57 Absolute Nucleated RBC 0 10^3/ul 01/17/18 08:57 Nucleated RBC % 0 01/17/18 08:57 INR (Anticoag Therapy) 1.06 (0.77-1.02) H 01/11/18 13:00 Sodium 134 mmol/L (139-145) L 01/17/18 08:57 Potassium 4.3 mmol/L (3.5-5.0) 01/17/18 08:57 Chloride 108 mmol/L (101-111) 01/17/18 08:57 Carbon Dioxide 21 mmol/L (22-32) L 01/17/18 08:57 Anion Gap 5 mmol/L (2-11) 01/17/18 08:57 BUN 33 mg/dL (6-24) H 01/17/18 08:57 Creatinine 3.11 mg/dL (0.67-1.17) H 01/17/18 08:57 Est GFR ( Amer) 27.5 (>60) 01/17/18 08:57 Est GFR (Non-Af Amer) 21.4 (>60) 01/17/18 08:57 BUN/Creatinine Ratio 10.6 (8-20) 01/17/18 08:57 Glucose 162 mg/dL (70-100) H 01/17/18 08:57 POC Glucose (mg/dL) 164 mg/dL (70-100) H 01/17/18 08:11 Calcium 8.4 mg/dL (8.6-10.3) L 01/17/18 08:57 Magnesium 2.1 mg/dL (1.9-2.7) 01/15/18 05:24 Iron 54 ug/dL (50-212) 01/14/18 05:03 TIBC 265 mcg/dL (250-450) 01/14/18 05:03 % Saturation 20 % (15-55) 01/14/18 05:03 Unsat Iron Binding 211 ug/dL 01/14/18 05:03 Transferrin 189 mg/dL (203-362) L 01/14/18 05:03 Ferritin 137.8 ng/mL (24-336) 01/14/18 05:03 Troponin I 0.01 ng/mL (<0.04) 01/15/18 22:42 Folate 10.03 ng/mL (>3.99) 01/14/18 05:03 Random Vancomycin 18.2 mcg/mL 01/15/18 05:25 Assessment: []POD 1 sp right foot revision of amputation- right midfoot amputation with lisfranc disarticulation and percutaneous tendo-achillles release Plan: []-- NWB RLE -- Keep splint CDI -- Fu Dr Galarza next week -- Fu ID in 2 weeks, levaquin 500 mg daily and flagyl 500 mg po bid for 21 days -- outpatient vascular evaluation -- Needs outpatient PCP -- May DC when medically ready
--- NOTE | 2018-01-17 15:12 | DS ---
CC: Dr. Siddhartha Morrison * DISCHARGE SUMMARY: DATE OF ADMISSION: 01/11/18 DATE OF DISCHARGE: 01/17/18 PRIMARY CARE PHYSICIAN: Josie Feng. ATTENDING SURGEON FOR THIS ADMISSION: Dr. Robert Galarza. INFECTIOUS DISEASE SPECIALIST: Dr. Doug Martinez. ATTENDING PHYSICIAN: Dr. Robert Thomas. MY ATTENDING FOR TODAY: Dr. Beth Tobias.* (DICTATED BY LEOPOLDO AGUIRRE NP) HOSPITAL COURSE: This is a 52-year-old male patient who presented to the emergency department on January 11, 2018, after having been seen by his orthopedist. The patient had a partial toe amputation and then further amputation of the right toe, had been in and out of the hospital several times, had presented with some subsequent erythema to his forefoot on the amputation site. He was placed on Keflex and Bactrim at that time. However, he had worsening and now diagnosed with cellulitis. He was sent to the emergency department for direct admission for transmetatarsal amputation of his right foot. His course was complicated by his report of extensive nausea, vomiting and chest pain initially this past Monday, which was his first planned day for surgery. Given the patient's history of diabetes, osteomyelitis, hypertension, anemia, chronic kidney disease, diabetic neuropathy, and so many comorbidities, it was felt that the patient should undergo cardiac work up. He had troponin completed, they were negative x3. His surgery was postponed for day. He went for a stress test this past Monday, nuclear stress test showed low risk for acute coronary syndrome. The patient was subsequently cleared for surgery. He underwent his procedure yesterday 01/16/18. He has had an uneventful postoperative course. He is feeling better today. His nausea and vomiting has subsided. He is tolerating meals. His postoperative pain is well controlled and he has had no further complaints today. PHYSICAL EXAMINATION: Vital signs on day of discharge blood pressure 147/73, heart rate 85, respiratory rate 20, temperature 98.1, satting at 98% on room air. HEENT: The patient is atraumatic and normocephalic. PERRLA with nonicteric sclerae. Neck is supple. No JVD noted. No carotid bruits auscultated. Cardiovascular: S1, S2 present. No murmurs, gallops or rubs. Rate and rhythm are regular. Lungs are clear bilaterally to auscultation with no wheezing, rhonchi or rales. Abdomen is soft, nontender, nondistended, moderately obese. Positive bowel sounds in all 4 quadrants. : Deferred. Musculoskeletal: There is no clubbing and no cyanosis. His right lower extremity is in a rigid cast. He has weak distal pulses but they are palpable both on the left and right lower extremities. The patient is nonweightbearing on the affected side. He ambulates with a walker and wheelchair. Neurologic: He is grossly intact with no focal deficits. Psychiatric: He is cooperative and appropriate. LABORATORY DATA: Dated 01/17/18: WBC 6.4, RBC is 2.95, hemoglobin 8.1, hematocrit 25, platelets 222. Sodium 134, potassium 4.3, CO2 108, BUN 33, creatinine 3.11. Glucose 162. Calcium 8.4. INR is 1.06. IMAGING: The patient underwent an arterial study on 01/15/18, which showed his ankle brachial indices is decreased and there is damping of the distal waveforms bilaterally consistent with moderate peripheral arterial occlusive disease, which is slightly progressed compared with 10/09/13. His nuclear medicine scan dated 01/16/18, shows a low normal ejection fraction which is unchanged. No definitive ischemia and overall no significant interval change from his previous nuclear stress test in December of 2016. DISCHARGE DIAGNOSES: 1. Osteomyelitis of the right foot status post transmetatarsal partial amputation. 2. Diabetes mellitus, uncontrolled. 3. Hypertensive kidney disease stage 3, 4. 4. Hypertension. 5. Hyperlipidemia. 6. History of COPD. 7. Nausea and vomiting with chest pain. 8. Anemia of chronic disease. DISCHARGE MEDICATIONS: Include: 1. Ellipta inhaler 1 puff daily. 2. Levemir 60 units subcu daily. 3. Gabapentin 300 mg 3 times a day. 4. Lasix 20 mg daily. 5. Simvastatin 20 mg daily. 6. Zoloft 50 mg daily. 7. Nifedipine 60 mg daily. 8. Metoprolol succinate 50 mg daily. 9. Lisinopril 20 mg daily. 10. Regular insulin coverage 10 units 3 times a day with meals. 11. Percocet 1 to 2 tablets q.6 hours as needed for pain. 12. Flagyl 500 mg 2 times a day for 21 days. 13. Levaquin 500 mg daily for 21 days. 14. Tylenol 650 mg q.4 hours as needed. DISCHARGE DISPOSITION: The patient was discharged in stable condition after being cleared by Surgery this morning. The patient has followup instructions that have also been detailed to the patient and he needs to follow up with Dr. Robert Galarza in 4 to 7 days, with Dr. Siddhartha Morrison on 01/24/18 at 10:20 in the morning, Dr. Doug Martinez in 2 weeks, and patient also has referral for [facility]. Again, patient was discharged in stable condition. All questions were answered. The patient states he has understanding of his medical followups, medication at the time of discharge, and referrals. LEOPOLDO AGUIRRE, ANESTHESIA TECHNICIAN [id number]/CPS #: [id number] MTDD
== END 2018-01-17 12:20 | disposition home health service (06) | DRG 617 ==
LOC: SSU 11:19
PROVIDERS: ADMIT Internal Medicine; ATTEND Internal Medicine
PROC: 0Y6M0Z0 Detachment at Right Foot, Complete, Open Approach (ICD-10-PCS; principal; 2018-01-16 14:00)
DX: E11.69 Type 2 diabetes mellitus with other specified complication (principal); L03.115 Cellulitis of right lower limb; M86.171 Other acute osteomyelitis, right ankle and foot; Z68.41 Body mass index [BMI] 40.0-44.9, adult; L02.611 Cutaneous abscess of right foot; M60.871 Other myositis, right ankle and foot; E11.22 Type 2 diabetes mellitus with diabetic chronic kidney disease; I12.9 Hypertensive chronic kidney disease with stage 1 through stage 4 chronic kidney disease, or unspecified chronic kidney disease; N18.4 Chronic kidney disease, stage 4 (severe); E78.5 Hyperlipidemia, unspecified; E11.42 Type 2 diabetes mellitus with diabetic polyneuropathy; B95.61 Methicillin susceptible Staphylococcus aureus infection as the cause of diseases classified elsewhere; E11.65 Type 2 diabetes mellitus with hyperglycemia; E87.5 Hyperkalemia; D63.1 Anemia in chronic kidney disease; E66.01 Morbid (severe) obesity due to excess calories; G43.909 Migraine, unspecified, not intractable, without status migrainosus; R11.2 Nausea with vomiting, unspecified; R07.9 Chest pain, unspecified; J44.9 Chronic obstructive pulmonary disease, unspecified; F32.9 Major depressive disorder, single episode, unspecified; E11.51 Type 2 diabetes mellitus with diabetic peripheral angiopathy without gangrene; Z89.421 Acquired absence of other right toe(s); Z88.3 Allergy status to other anti-infective agents; Z91.010 Allergy to peanuts; Z79.4 Long term (current) use of insulin; Z88.8 Allergy status to other drugs, medicaments and biological substances; Z91.018 Allergy to other foods; Z83.3 Family history of diabetes mellitus; Z87.891 Personal history of nicotine dependence
CPT/HCPCS: 36415; 78452; 80048; 80202; 82270; 82565; 82728; 82746; 83540; 83550; 83735; 84484; 84520; 85025; 85610; 87070; 87073; 87205; 90732; 93005; 93017; 93922; A9270-GY; A9502; G8978-GP-CJ; G8979-GP-CI; J0280; J0360; J0780; J1644; J2001; J2060; J2250; J2270; J2405; J2543; J2704; J2785; J3010; J3370; J3475

== ENCOUNTER 2018-05-25 16:18 | Inpatient (IN) | payer MEDICARE, MEDICAID ==
[2018-05-25] MEDS ORDERED: Clindamycin 900 MG IVPREMIX(* 900 MG/50 ML SDV IV ONE (17:09)
[2018-05-25] MEDS ORDERED: Ciprofloxacin 400MG IVPREMIX(* 400 MG/200 ML BAG IVPB ONE (17:09)
--- NOTE | 2018-05-25 17:37 | RAD ---
Indication: Evaluate for osteomyelitis. 3 views of the right foot stump demonstrates amputation from the metatarsals forward. No specific erosions are noted although there is soft tissue swelling noted. IMPRESSION: Soft tissue swelling. No focal lytic areas are noted.
--- NOTE | 2018-05-25 17:38 | RAD ---
Indication: Infection. Single AP view of the chest demonstrate no mediastinal shift. Heart is of normal size and configuration. Lung hallman are clear. Overall no changes noted since previous exam of February 03, 2017. IMPRESSION: No active cardiopulmonary disease is noted.
[2018-05-25 17:42] LABS: ABS Basophils 0.1 10^3/ul (0-0.2); ABS Eosinophils 0.1 10^3/ul (0-0.6); ABS Lymphocytes 0.9 10^3/ul (1.0-4.8); ABS Monocytes 0.7 10^3/ul (0-0.8); ABS Neutrophils 5.2 10^3/ul (1.5-7.7); ABS Nucleated RBC 0 10^3/ul; Eosinophil % 1.9 % (0-6); Hematocrit 26 % (42-52); Hemoglobin 8.2 g/dl (14.0-18.0); Lymphocyte % 12.3 % (25-47); Mean Corpuscular HGB Conc 32 g/dl (31-36); Mean Corpuscular Hemoglobin 28 pg (27-31); Mean Corpuscular Volume 86 fL (80-94); Mean Platelet Volume 8.1 um3 (7.4-10.4); Nucleated Red Blood Cells % 0.1; Platelet Count 175 10^3/ul (150-450); Red Blood Count 2.97 10^6/ul (4.00-5.40); Red Cell Distribution Width 15 % (10.5-15); White Blood Count 6.9 10^3/ul (3.5-10.8)
[2018-05-25 17:48] LABS: INR 1.02 (0.77-1.02)
[2018-05-25 18:01] LABS: EGFR Non-African American 12.9 (>60)
[2018-05-25] MEDS ORDERED: Acetaminophen TAB* 325 MG PO PRN (18:58)
[2018-05-25] MEDS ORDERED: Al Hydrox/Mg Hydrox/Simet LIQ* 30 ML UDC PO PRN (18:58)
[2018-05-25] MEDS ORDERED: Dextrose 50% Syringe 50 ML* 25 GM/50 ML SYRINGE IV PUSH PRN (19:01)
--- NOTE | 2018-05-25 19:24 | ED ---
Lower Extremity - HPI Summary HPI Summary: Patient is a 52 y/o M w/ c/o necrotic tissue on right foot. He claims caregiver noticed tissue 2 days ago. Patient has r foot amputation proximal to toes/ metatarsal area. He also notes pain and swelling in foot for the past month. Foot was amputated this past December or November secondary to diabetes. He was not experiencing issues immediately after surgery. Dr. Galarza performed amputation. He denies fever and chills, unsure if he is on antibiotics. Hx of COPD. On triage, pain is 4/10, nothing aggravates/alleviates Sx. - History of Current Complaint Chief Complaint: EDExtremityLower Stated Complaint: POS RT FOOT INFECTION Time Seen by Provider: 05/25/18 16:50 Hx Obtained From: Patient Onset/Duration: Weeks - past month pain, noticed tissue two days ago Severity Currently: Mild - 4/10 Pain Intensity: 4 Pain Scale Used: 0-10 Numeric - 4/10 Timing: Constant Location: Is Discrete @ - bottom of right foot Associated Signs And Symptoms: Positive: Other - NEGATIVE: chills. Negative: Fever Aggravating Factor(s): Nothing Alleviating Factor(s): Nothing - Allergies/Home Medications Allergies/Adverse Reactions: Allergies Allergy/AdvReac Type Severity Reaction Status Date / Time peanut Allergy Rash Verified 05/25/18 16:27 peanut oil Allergy Rash Verified 05/25/18 16:27 spinach Allergy "My tongue Verified 05/25/18 16:27 swells up and I can't breathe." strawberry Allergy "My tongue Verified 05/25/18 16:27 swells right up." sulfamethoxazole Allergy "I don't Verified 05/25/18 16:27 [From Bactrim] know ... lips swelled up." trimethoprim [From Bactrim] Allergy "I don't Verified 05/25/18 16:27 know ... lips swelled up." Home Medications: Home Medications Fluticasone/Vilanterol MDI(NF) [Breo Ellipta MDI (NF)] 1 puff INH DAILY [History Confirmed 05/25/18] Insulin Glargine,Hum.rec.anlog [Michelle Vázquez] 64 unit SC BEDTIME 05/25/18 [ History Confirmed 05/25/18] hydroCHLOROthiazide [Hydrochlorothiazide] 25 mg PO DAILY 05/25/18 [History Confirmed 05/25/18] raNITIdine HCl [Ranitidine HCl] 150 mg PO BID 05/25/18 [History Confirmed ] PMH/Surg Hx/FS Hx/Imm Hx Endocrine/Hematology History: Reports: Hx Diabetes, Hx Anemia Denies: Hx Blood Transfusions, Hx Systemic Lupus Erythematosus, Hx Thyroid Disease, Other Endocrine/Hematological Disorders Cardiovascular History: Reports: Hx Angina, Hx Coronary Artery Disease, Hx Hypercholesterolemia, Hx Hypertension Denies: Hx Congestive Heart Failure, Hx Myocardial Infarction, Hx Pacemaker/ ICD, Hx Valvular Heart Disease Respiratory History: Reports: Hx Chronic Obstructive Pulmonary Disease (COPD) - home O2, does not use, Hx Sleep Apnea - suspected Denies: Hx Asthma, Hx Pulmonary Embolism GI History: Reports: Hx Gastroesophageal Reflux Disease Denies: Hx Ulcer History: Reports: Other Problems/Disorders - CKD Denies: Hx Dialysis, Hx Renal Disease Musculoskeletal History: Reports: Other Musculoskeletal History - R great toe amputation, L partial foot amputation, L achilles tendon remove Denies: Hx Rheumatoid Arthritis Sensory History: Reports: Hx Cataracts - removed bilat Denies: Hx Contacts or Glasses, Hx Hearing Aid Opthamlomology History: Reports: Hx Cataracts - removed bilat Denies: Hx Contacts or Glasses Neurological History: Reports: Other Neuro Impairments/Disorders - Hx Pre syncope, phantom toe pain left foot, yousuf numb/tingling feet Psychiatric History: Reports: Hx Anxiety - PRN LORAZEPAM Denies: Hx Panic Disorder - Cancer History Hx Chemotherapy: No - Surgical History Surgery Procedure, Year, and Place: right big toe amputation, - ALL REMOVED NOW (11/2017). CATARACT WITH LENS IMPLANTS - BY DR DENNEY. Partial left foot amputation Hx Anesthesia Reactions: No Infectious Disease History: Yes Infectious Disease History: Reports: Hx of Known/Suspected MRSA - [facility], Chest, 2005 Denies: Hx Hepatitis, Hx Human Immunodeficiency Virus (HIV), History Other Infectious Disease, Traveled Outside the [place] in Last 30 Days - Family History Known Family History: Positive: Diabetes Negative: Cardiac Disease - Social History Alcohol Use: Rare Substance Use Type: Reports: None Substance Use Comment - Amount & Last Used: CHEWING TOBACCO Smoking Status (MU): Former Smoker Type: Smokeless Tobacco Amount Used/How Often: quit in 2009 Length of Time of Smoking/Using Tobacco: <1 PPD x 26 Years Have You Smoked in the Last Year: No Review of Systems Negative: Fever, Chills Positive: Other - pain and swelling of bottom of right foot; necrotic tissue also present All Other Systems Reviewed And Are Negative: Yes Physical Exam - Summary Physical Exam Summary: GENERAL: Patient is a well developed and nourished male who is lying comfortable in the stretcher. Patient is not in any acute respiratory distress. HEAD AND FACE: Normocephalic EYES: PERRLA, EOMI x 2. MOUTH: Oropharynx within normal limits. NECK: Supple, trachea is midline, no adenopathy, no JVD, no carotid bruit. CHEST: Symmetric, no tenderness at palpation LUNGS: Clear to auscultation bilaterally. No wheezing or crackles. CVS: Regular rate and rhythm, S1 and S2 present, no murmurs or gallops appreciated. ABDOMEN: Soft, non-tender. Bowel sounds are normal. No abdominal abnormal pulsations. EXTREMITIES: Full ROM in all major joints, no cyanosis or clubbing. 5.5 cm x 4 cm necrotic area at plantar aspect of right foot ; has lateral pitting edema and right foot amputation just proximal to metatarsal area. NEURO: Alert and oriented x 3. No acute neurological deficits. Speech is normal and follows commands. SKIN: Dry and warm Triage Information Reviewed: Yes Vital Signs On Initial Exam: Initial Vitals Temp Pulse Resp BP Pulse Ox 98.5 F 85 18 155/83 94 05/25/18 16:27 05/25/18 16:27 05/25/18 16:27 05/25/18 16:27 05/25/18 16:27 Vital Signs Reviewed: Yes Diagnostics - Vital Signs Vital Signs Temp Pulse Resp BP Pulse Ox 05/25/18 18:56 97 05/25/18 16:27 98.5 F 85 18 155/83 94 - Laboratory Lab Results: Lab Results 05/25/18 05/25/18 05/25/18 Range/Units 17:27 17:27 17:27 WBC 6.9 (3.5-10.8) 10^3/ul RBC 2.97 L (4.00-5.40) 10^6/ul Hgb 8.2 L (14.0-18.0) g/dl Hct 26 L (42-52) % MCV 86 (80-94) fL MCH 28 (27-31) pg MCHC 32 (31-36) g/dl RDW 15 (10.5-15) % Plt Count 175 (150-450) 10^3/ul MPV 8.1 (7.4-10.4) um3 Neut % (Auto) 74.5 (38-83) % Lymph % (Auto) 12.3 L (25-47) % [place] % (Auto) 10.5 H (0-7) % Eos % (Auto) 1.9 (0-6) % Baso % (Auto) 0.8 (0-2) % Absolute Neuts (auto) 5.2 (1.5-7.7) 10^3/ul Absolute Lymphs (auto) 0.9 L (1.0-4.8) 10^3/ul Absolute Monos (auto) 0.7 (0-0.8) 10^3/ul Absolute Eos (auto) 0.1 (0-0.6) 10^3/ul Absolute Basos (auto) 0.1 (0-0.2) 10^3/ul Absolute Nucleated RBC 0 10^3/ul Nucleated RBC % 0.1 ESR 120 H (0-20) mm/Hr INR (Anticoag Therapy) 1.02 (0.77-1.02) APTT 32.5 (26.0-36.3) seconds Sodium 135 (135-145) mmol/L Potassium 4.3 (3.5-5.0) mmol/L Chloride 106 (101-111) mmol/L Carbon Dioxide 21 L (22-32) mmol/L Anion Gap 8 (2-11) mmol/L BUN 54 H (6-24) mg/dL Creatinine 4.82 H (0.67-1.17) mg/dL Est GFR ( Amer) 15.6 (>60) Est GFR (Non-Af Amer) 12.9 (>60) BUN/Creatinine Ratio 11.2 (8-20) Glucose 313 H (70-100) mg/dL Lactic Acid (0.5-2.0) mmol/L Calcium 8.1 L (8.6-10.3) mg/dL Total Bilirubin 0.30 (0.2-1.0) mg/dL AST 10 L (13-39) U/L ALT 9 (7-52) U/L Alkaline Phosphatase 87 (34-104) U/L Troponin I 0.02 (<0.04) ng/mL C-Reactive Protein 96.45 H (<8.01) mg/L B-Natriuretic Peptide ( - 100) pg/mL Total Protein 6.3 L (6.4-8.9) g/dL Albumin 3.0 L (3.2-5.2) g/dL Globulin 3.3 (2-4) g/dL Albumin/Globulin Ratio 0.9 L (1-3) 05/25/18 05/25/18 Range/Units 17:27 17:27 WBC (3.5-10.8) 10^3/ul RBC (4.00-5.40) 10^6/ul Hgb (14.0-18.0) g/dl Hct (42-52) % MCV (80-94) fL MCH (27-31) pg MCHC (31-36) g/dl RDW (10.5-15) % Plt Count (150-450) 10^3/ul MPV (7.4-10.4) um3 Neut % (Auto) (38-83) % Lymph % (Auto) (25-47) % [place] % (Auto) (0-7) % Eos % (Auto) (0-6) % Baso % (Auto) (0-2) % Absolute Neuts (auto) (1.5-7.7) 10^3/ul Absolute Lymphs (auto) (1.0-4.8) 10^3/ul Absolute Monos (auto) (0-0.8) 10^3/ul Absolute Eos (auto) (0-0.6) 10^3/ul Absolute Basos (auto) (0-0.2) 10^3/ul Absolute Nucleated RBC 10^3/ul Nucleated RBC % ESR (0-20) mm/Hr INR (Anticoag Therapy) (0.77-1.02) APTT (26.0-36.3) seconds Sodium (135-145) mmol/L Potassium (3.5-5.0) mmol/L Chloride (101-111) mmol/L Carbon Dioxide (22-32) mmol/L Anion Gap (2-11) mmol/L BUN (6-24) mg/dL Creatinine (0.67-1.17) mg/dL Est GFR ( Amer) (>60) Est GFR (Non-Af Amer) (>60) BUN/Creatinine Ratio (8-20) Glucose (70-100) mg/dL Lactic Acid 0.8 (0.5-2.0) mmol/L Calcium (8.6-10.3) mg/dL Total Bilirubin (0.2-1.0) mg/dL AST (13-39) U/L ALT (7-52) U/L Alkaline Phosphatase (34-104) U/L Troponin I (<0.04) ng/mL C-Reactive Protein (<8.01) mg/L B-Natriuretic Peptide 128 H ( - 100) pg/mL Total Protein (6.4-8.9) g/dL Albumin (3.2-5.2) g/dL Globulin (2-4) g/dL Albumin/Globulin Ratio (1-3) Result Diagrams: 05/25/18 17:27 05/25/18 17:27 Lab Statement: Any lab studies that have been ordered have been reviewed, and results considered in the medical decision making process. - Radiology CXR Xray Interpretation: No Acute Changes Radiology Interpretation Completed By: Radiologist - no active cardiopulmonary disease is noted; this report was reviewed by ED physician. right foot x-ray Xray Interpretation: Positive (See Comments) Radiology Interpretation Completed By: Radiologist - soft tissue swelling, no focal lytic areas are noted; this report was reviewed by ED physician. Re-Evaluation - Re-Evaluation First Eval Re-Evaluation Time: 17:47 Comment: Asked which antibotics he is on. Second Eval Re-Evaluation Time: 18:50 Comment: Discussed plan for admission, patient is agreeable with plan. Lower Extremity Course/Dx - Course Assessment/Plan: Patient is a 52 y/o M w/ c/o necrotic tissue on right foot. He claims caregiver noticed tissue 2 days ago. Patient has r foot amputation proximal to toes/metatarsal area. He also notes pain and swelling in foot for the past month. Foot was amputated this past December or November secondary to diabetes. He was not experiencing issues immediately after surgery. Dr. Galarza performed amputation. He denies fever and chills, unsure if he is on antibiotics. Hx of COPD. On triage, pain is 4/10, nothing aggravates/alleviates Sx. Physical showed 5.5 cm x 4 cm necrotic area at plantar aspect of right foot ; has lateral pitting edema and right foot amputation just proximal to metatarsal area. CXR normal, right foot X-ray impressions above. During ED course, patient given Cleocin 900 mg IVpremix Sdv, 900 mg in 50 mls @ 100 mls/ hr IV ONCE ONE, and Cipro 400 mg Ivpremix. BNP was 128, CRP 96.45, glucose 313, CO2 21. Discussed patient with Dr. Mcintyre at 1837, he recommends admission. Dr. Tobias was consulted at 18:45, she accepts patient for admission. Patient was diagnosed with diabetic infection of left foot. He was informed of decision to admit and is agreeable with plan. - Diagnoses Provider Diagnoses: Diabetic infection of left foot - Physician Notifications Discussed Care Of Patient With: Robert Mcintyre Time Discussed With Above Provider: 18:37 Instructed by Provider To: Other - Dr. Mcintyre consulted at 18:37, he recommends admission. Dr. Tobias consulted at 18:45, she accepts patient for admission. Discharge - Sign-Out/Discharge Documenting (check all that apply): Patient Departure - admit - Discharge Plan Condition: Fair Disposition: ADMITTED TO [facility] Referrals: Siddhartha Morrison DO [Primary Care Provider] - - Attestation Statements Document Initiated by Scribe: Yes Documenting Scribe: Tex Hernandez Provider For Whom Scribe is Documenting (Include Credential): Monica Valle M.D. Scribe Attestation: Tex Cabral, scribed for Monica Valle M.D. on 05/25/18 at 1930.
[2018-05-25] MEDS ORDERED: ceFAZolin 1 GM VIAL(*) 1 GM in NS 0.9% 50 ML* 50 ML IVPB SCH (21:00)
--- NOTE | 2018-05-25 22:08 | HP ---
CC: Dr. Morrison; Dr. Galarza; Dr. Mcintyre * HISTORY AND PHYSICAL: DATE OF ADMISSION: 05/25/18 PRIMARY CARE PROVIDER: Dr. Morrison. CHIEF COMPLAINT: Right foot wound. HISTORY OF PRESENT ILLNESS: Tanner Galo is a 52-year-old male with a history of status post bilateral tarsometatarsal amputations for osteomyelitis and diabetic- associated foot ulcers, who had a complicated postoperative course after TMA of the right foot that required taking the patient back to the OR for revision of amputation of the right mid foot in December 2017. The patient stated that post his hospital stay in December, he was placed on oral antibiotics and he did well and his bilateral feet were healed at some point. He started wearing a shoe prosthetic and developed a sore approximately a month ago. He stated that today the wound started smelling bad and his sister advised him to come into the emergency department for evaluation. He denies any fevers or chills. His wound has been draining intermittently. PAST MEDICAL HISTORY: 1. History of status post bilateral tarsometatarsal foot amputations due to diabetic foot ulcers and osteomyelitis. 2. History of diabetes with poor control. 3. History of hypertension. 4. History of chronic kidney disease, stage 4. 5. Anemia. 6. History of depression. 7. History of peripheral vascular disease. 8. Diabetic neuropathy and nephropathy. MEDICATIONS: The patient's current medications are in the process of reconciliation. The patient does not remember what he takes every day apart from that he is on the insulin Lantus at 64 units and insulin Humalog sliding scale. The remaining medications are in the process of reconciliation from [facility] in [place]. ALLERGIES: Include PEANUTS, PEANUT OIL, SPINACH, STRAWBERRY, BACTRIM, and TRIMETHOPRIM. FAMILY HISTORY: Positive for diabetes in his father. SOCIAL HISTORY: The patient smoked approximately 35 years and he quit in 2008. He is on disability. Lives alone. Denies any alcohol or drug use. His healthcare proxy is his friend, Rolando Cristina. REVIEW OF SYSTEMS: Please see history of present illness. All the remaining 12 systems were reviewed with the patient and were otherwise negative. PHYSICAL EXAMINATION GENERAL: The patient is a pleasant 52-year-old morbidly obese male with a BMI of 44. The patient is in no acute distress. Alert, awake, and oriented x3. VITAL SIGNS: Blood pressure of 155/83, heart rate of 85 and regular, respiratory rate 18, oxygen saturation 94% on room air, temperature 98.5. HEENT: Head: Atraumatic, normocephalic. Eyes: Pupils are equal, reactive to light and accommodation. Oropharynx is clear. Mucosa moist. NECK: Supple. No JVD. No bruits bilaterally. RESPIRATORY: Clear to auscultation bilaterally. CARDIOVASCULAR: Regular rate and rhythm. No murmur. ABDOMEN: Soft, nontender. Bowel sounds are present in all 4 quadrants, very obese. EXTREMITIES: There is trace bilateral ankle edema. Pulses +2 bilaterally. There is no clubbing or cyanosis. On bilateral feet, the patient is status post bilateral transmetatarsal amputations. The left foot has healed well with a stump healed well. No evidence of dehiscence. The right foot stump is healed well, but on the bottom of the right foot somewhat laterally and the patient has a large ulcer that is approximately 5 cm in diameter rather oval with bottom of the wound cover with slough, appears to be stage 3. It is foul smelling, but there is no evidence of surrounding cellulitis. Some greenish discharge is noted. NEUROLOGIC: Speech is clear. Cranial nerves II through XII are grossly intact. Motor strength is 5/5 bilaterally with decreased sensation in bilateral feet. DIAGNOSTIC STUDIES/LAB DATA: Laboratory data and studies performed during the hospital stay included: White blood cell count of 6.9, hemoglobin 8.2, hematocrit of 26, and platelets of 175. ESR of 120. Sodium of 135, potassium 4.3, chloride 106, carbon dioxide 21, BUN 54, creatinine 4.8. The patient's baseline creatinine in the 3 range. C-reactive protein was 96. Liver functions were unremarkable. Foot x-ray, impression: Soft tissue swelling. No focal lytic areas are noted. ASSESSMENT AND PLAN: 1. Subacute right foot ulcer. The wound does appear to may be locally infected and definitely requires wound care and debridement. He may have osteomyelitis in the area also. The patient is currently nontoxic appearing with no leukocytosis, no fevers, and no history of seizures. At this time, the patient is going to be admitted to the hospital. I suspect he is going to stay here another 2 or 3 days since he requires an MRI. It is going to be done over the weekend. He is going to have a consultation with orthopedic surgeons in regards to further management and wound care. For the time being, the patient is going to be placed with antibiotics that will include cefazolin and Flagyl. I will not place the patient on fluoroquinolones or Zosyn due to his worsening renal insufficiency. 2. Fonpi-af-pubkqqg kidney disease. The patient has a history of chronic kidney disease stage 4 with creatinine of around 3. Today, his creatinine is markedly increased. At home, the patient had been on Lasix and that is going to be stopped. I will not institute intravenous hydration, but stop the patient' s Lasix and monitor closely. 3. Diabetes. The patient's glucose currently is 300. I suspect the patient's diabetes is not controlled. He is going to be placed on insulin sliding scale and continued on Lantus with slightly lower dose since the patient is going to be on hospital diabetic diet at 50 units daily. 4. DVT prophylaxis. The patient is going to be placed on heparin subcutaneously. 5. The patient's code status is full. His surrogate is his son as mentioned above. TIME SPENT: Approximately, 65 minutes were spent on the admission of this patient, more than half that time was spent [id number] with the patient during the interview and physical exam. [id number]/[facility] #: [id number] KEDAR
[2018-05-25] MEDS: Gabapentin CAP(*) 300 MG PO SCH (22:34)
[2018-05-25] MEDS: oxyCODONE/Acetamin 5/325 MG* TAB PO PRN (22:34)
[2018-05-25] MEDS: Heparin VIAL(*) 5000 UNITS/ML VIAL (FIVE THOUSAND) SUBCUT SCH (22:35)
[2018-05-25] MEDS: Insulin LISPRO* 1 UNITS UNIT SUBCUT SCH (22:36)
[2018-05-25] MEDS: Mupirocin 2% OINT* TUBE TOPICAL PRN (23:50)
[2018-05-26] MEDS: metroNIDAZOLE IV 500 MG/100ML* 500 MG/100 ML BAG IVPB SCH ×4 (00:09→21:40)
[2018-05-26] MEDS: cefTRIAXone* 1 GM in NS 0.9% 50 ML BAG IVPB SCH (03:21)
[2018-05-26 05:58] LABS: ABS Basophils 0 10^3/ul (0-0.2); ABS Eosinophils 0.1 10^3/ul (0-0.6); ABS Lymphocytes 0.9 10^3/ul (1.0-4.8); ABS Monocytes 0.6 10^3/ul (0-0.8); ABS Nucleated RBC 0 10^3/ul; Eosinophil % 2.5 % (0-6); Hematocrit 24 % (42-52); Hemoglobin 7.7 g/dl (14.0-18.0); Lymphocyte % 20.1 % (25-47); Mean Corpuscular HGB Conc 33 g/dl (31-36); Mean Corpuscular Hemoglobin 28 pg (27-31); Mean Corpuscular Volume 85 fL (80-94); Mean Platelet Volume 8.2 um3 (7.4-10.4); Nucleated Red Blood Cells % 0.1; Platelet Count 151 10^3/ul (150-450); Red Blood Count 2.77 10^6/ul (4.00-5.40); Red Cell Distribution Width 16 % (10.5-15); White Blood Count 4.7 10^3/ul (3.5-10.8)
[2018-05-26] MEDS: Heparin VIAL(*) 5000 UNITS/ML VIAL (FIVE THOUSAND) SUBCUT SCH ×3 (06:22→21:40)
[2018-05-26] MEDS: oxyCODONE/Acetamin 5/325 MG* TAB PO PRN ×2 (06:46→21:39)
[2018-05-26] MEDS: NF:Fluticasone/Vilanterol MDI(NF) 100/25 MDI INH SCH (07:55)
[2018-05-26] MEDS: Gabapentin CAP(*) 300 MG PO SCH ×3 (07:59→21:39)
[2018-05-26] MEDS: NIFEdipine ER TAB* 60 MG PO SCH (08:00)
[2018-05-26] MEDS: Sertraline* 50 MG TAB PO SCH (08:00)
[2018-05-26] MEDS ORDERED: Metoprolol Succinate XL TAB* 50 MG PO SCH (09:00)
[2018-05-26] MEDS ORDERED: NS 0.9% 1000 ML* 1,000 ML IV SCH (09:00)
--- NOTE | 2018-05-26 09:55 | PN ---
Subjective Date of Service: 05/26/18 Interval History: Pt feels well. Stated that his PCP "took him of diuretic" recently and he started noticing edema of his ankles. Pt cannot provide a med list today Objective Active Medications: Acetaminophen (Tylenol Tab*) 650 mg PO Q4H PRN PRN Reason: FEVER/PAIN Al Hydrox/Mg Hydrox/Simethicone (Maalox Plus*) 30 ml PO Q6H PRN PRN Reason: INDIGESTION Dextrose (D50w Syringe 50 Ml*) 12.5 gm IV PUSH .FOR FS < 60 - SS PRN PRN Reason: FS < 60 Fluticasone/Vilanterol (Breo Ellipta Mdi 100/25(Nf)) 1 puff INH DAILY [facility] Last Admin: 05/26/18 07:55 Dose: Not Given Gabapentin (Neurontin Cap(*)) 300 mg PO TID [facility] Last Admin: 05/26/18 07:59 Dose: 300 mg Heparin Sodium (Porcine) (Heparin Vial(*)) 5,000 units SUBCUT Q8HR [facility] Last Admin: 05/26/18 06:22 Dose: 5,000 units Metronidazole/Sodium Chloride (Flagyl 500 Mg Ivpb*) 500 mg in 100 mls @ 100 mls /hr IVPB Q8H [facility] Last Admin: 05/26/18 06:25 Dose: 100 mls/hr Ceftriaxone Sodium 1 gm/ (Sodium Chloride) 50 mls @ 200 mls/hr IVPB Q24H [facility] Last Admin: 05/26/18 03:21 Dose: 200 mls/hr Sodium Chloride (Ns 0.9% 1000 Ml*) 1,000 mls @ 75 mls/hr IV PER RATE [facility] Stop: 05/26/18 22:19 Insulin Glargine (Lantus(*)) 50 units SUBCUT Q24H [facility] Insulin Human Lispro (Humalog*) 0 units SUBCUT ACHS [facility]; Protocol Last Admin: 05/25/18 22:36 Dose: 8 units Metoprolol Succinate (Toprol Xl Tab*) 50 mg PO DAILY [facility] Last Admin: 05/26/18 08:00 Dose: 50 mg Mupirocin (Bactroban 2 % Oint*) 1 applic TOPICAL .DRESSING CHANGE PRN PRN Reason: WITH DRESSING CHANGES Last Admin: 05/25/18 23:50 Dose: 1 applic Nifedipine (Procardia Xl Tab*) 60 mg PO DAILY [facility] Last Admin: 05/26/18 08:00 Dose: 60 mg Oxycodone/Acetaminophen (Percocet 5/325 Tab*) 1 tab PO Q6H PRN PRN Reason: PAIN Last Admin: 05/26/18 06:46 Dose: 1 tab Sertraline HCl (Zoloft*) 50 mg PO DAILY [facility] Last Admin: 05/26/18 08:00 Dose: 50 mg Vital Signs - 8 hr 05/26/18 05/26/18 05/26/18 03:20 06:46 07:47 Temperature 97.8 F 98.6 F Pulse Rate 69 76 Respiratory 16 16 16 Rate Blood Pressure 137/62 132/71 (mmHg) O2 Sat by Pulse 94 96 Oximetry 05/26/18 07:59 Temperature Pulse Rate Respiratory 18 Rate Blood Pressure (mmHg) O2 Sat by Pulse Oximetry Oxygen Devices in Use Now: None, Nasal Cannula Appearance: 52 yo M in nAD, aAOx3 Eyes: No Scleral Icterus, PERRLA Ears/Nose/Mouth/Throat: NL Teeth, Lips, Gums, Mucous Membranes Moist Neck: NL Appearance and Movements; NL JVP, Trachea Midline Respiratory: Symmetrical Chest Expansion and Respiratory Effort, Clear to Auscultation Cardiovascular: NL Sounds; No Murmurs; No JVD Abdominal: NL Sounds; No Tenderness; No Distention, No Hepatosplenomegaly Lymphatic: No Cervical Adenopathy Extremities: No Clubbing, Cyanosis, - - b/l ankle edema +1 Skin: No Nodules or Sclerosis, - - s/p B/L TMA, R bottom of foot ulcer at 4x5 cm stage 3 Neurological: Alert and Oriented x 3, NL Muscle Strength and Tone Result Diagrams: 05/26/18 05:22 05/26/18 05:22 Additional Lab and Data: Lab Results 05/25/18 05/25/18 05/25/18 Range/Units 17:27 17:27 17:27 WBC 6.9 (3.5-10.8) 10^3/ul RBC 2.97 L (4.00-5.40) 10^6/ul Hgb 8.2 L (14.0-18.0) g/dl Hct 26 L (42-52) % MCV 86 (80-94) fL MCH 28 (27-31) pg MCHC 32 (31-36) g/dl RDW 15 (10.5-15) % Plt Count 175 (150-450) 10^3/ul MPV 8.1 (7.4-10.4) um3 Neut % (Auto) 74.5 (38-83) % Lymph % (Auto) 12.3 L (25-47) % Haywood % (Auto) 10.5 H (0-7) % Eos % (Auto) 1.9 (0-6) % Baso % (Auto) 0.8 (0-2) % Absolute Neuts (auto) 5.2 (1.5-7.7) 10^3/ul Absolute Lymphs (auto) 0.9 L (1.0-4.8) 10^3/ul Absolute Monos (auto) 0.7 (0-0.8) 10^3/ul Absolute Eos (auto) 0.1 (0-0.6) 10^3/ul Absolute Basos (auto) 0.1 (0-0.2) 10^3/ul Absolute Nucleated RBC 0 10^3/ul Nucleated RBC % 0.1 ESR 120 H (0-20) mm/Hr INR (Anticoag Therapy) 1.02 (0.77-1.02) APTT 32.5 (26.0-36.3) seconds Sodium 135 (135-145) mmol/L Potassium 4.3 (3.5-5.0) mmol/L Chloride 106 (101-111) mmol/L Carbon Dioxide 21 L (22-32) mmol/L Anion Gap 8 (2-11) mmol/L BUN 54 H (6-24) mg/dL Creatinine 4.82 H (0.67-1.17) mg/dL Est GFR ( Amer) 15.6 (>60) Est GFR (Non-Af Amer) 12.9 (>60) BUN/Creatinine Ratio 11.2 (8-20) Glucose 313 H (70-100) mg/dL Lactic Acid (0.5-2.0) mmol/L Calcium 8.1 L (8.6-10.3) mg/dL Total Bilirubin 0.30 (0.2-1.0) mg/dL AST 10 L (13-39) U/L ALT 9 (7-52) U/L Alkaline Phosphatase 87 (34-104) U/L Troponin I 0.02 (<0.04) ng/mL C-Reactive Protein 96.45 H (<8.01) mg/L B-Natriuretic Peptide ( - 100) pg/mL Total Protein 6.3 L (6.4-8.9) g/dL Albumin 3.0 L (3.2-5.2) g/dL Globulin 3.3 (2-4) g/dL Albumin/Globulin Ratio 0.9 L (1-3) 05/25/18 05/25/18 Range/Units 17:27 17:27 WBC (3.5-10.8) 10^3/ul RBC (4.00-5.40) 10^6/ul Hgb (14.0-18.0) g/dl Hct (42-52) % MCV (80-94) fL MCH (27-31) pg MCHC (31-36) g/dl RDW (10.5-15) % Plt Count (150-450) 10^3/ul MPV (7.4-10.4) um3 Neut % (Auto) (38-83) % Lymph % (Auto) (25-47) % Haywood % (Auto) (0-7) % Eos % (Auto) (0-6) % Baso % (Auto) (0-2) % Absolute Neuts (auto) (1.5-7.7) 10^3/ul Absolute Lymphs (auto) (1.0-4.8) 10^3/ul Absolute Monos (auto) (0-0.8) 10^3/ul Absolute Eos (auto) (0-0.6) 10^3/ul Absolute Basos (auto) (0-0.2) 10^3/ul Absolute Nucleated RBC 10^3/ul Nucleated RBC % ESR (0-20) mm/Hr INR (Anticoag Therapy) (0.77-1.02) APTT (26.0-36.3) seconds Sodium (135-145) mmol/L Potassium (3.5-5.0) mmol/L Chloride (101-111) mmol/L Carbon Dioxide (22-32) mmol/L Anion Gap (2-11) mmol/L BUN (6-24) mg/dL Creatinine (0.67-1.17) mg/dL Est GFR ( Amer) (>60) Est GFR (Non-Af Amer) (>60) BUN/Creatinine Ratio (8-20) Glucose (70-100) mg/dL Lactic Acid 0.8 (0.5-2.0) mmol/L Calcium (8.6-10.3) mg/dL Total Bilirubin (0.2-1.0) mg/dL AST (13-39) U/L ALT (7-52) U/L Alkaline Phosphatase (34-104) U/L Troponin I (<0.04) ng/mL C-Reactive Protein (<8.01) mg/L B-Natriuretic Peptide 128 H ( - 100) pg/mL Total Protein (6.4-8.9) g/dL Albumin (3.2-5.2) g/dL Globulin (2-4) g/dL Albumin/Globulin Ratio (1-3) Microbiology and Other Data: Microbiology 05/25/18 23:53 Skin and Soft Tissue MRSA/MSSA (PCR - Final Foot Right Mrsa Negative S.aureus Positive Gram Stain - Final Assess/Plan/Problems-Billing Assessment: 52 yo M with h/o DM, CKD stage 4, B/L TMA, hyperkalemia presents with ulcer of R foot - Patient Problems (1) Osteomyelitis of ankle or foot Comment: wound cx growing Staph, not MRSA. cont Ceftriaxone/flagyl Appreciate Dr. Galarza's consult MRI of R foot ordered, suspect osteo (2) Anemia of chronic disease Comment: - Chronic with mild worsening today. May be due to worensing renal function No symptoms/signs of bleeding (3) CKD (chronic kidney disease) Comment: Likely due to combination of DM and HTN. DIONTE this hospital stay-baseline creat at 3 cont to hold diuretic. Start gentle IVF. Check FeNa and renal US. Try to obtain recent med list from PCP (4) COPD (chronic obstructive pulmonary disease) Comment: - Not in exacerbation (5) Diabetes Comment: c/w Lantus and ISS, HbA1C pending (6) Hypertension Comment: - Continue Procardia, - Continue to hold Lisinopril in the setting of DIONTE (7) DVT prophylaxis Comment: - HSQ Status and Disposition: inpatient
[2018-05-26] MEDS: Insulin GLARGINE(*) 1 UNITS UNIT SUBCUT SCH (09:58)
[2018-05-26] MEDS: Insulin LISPRO* 1 UNITS UNIT SUBCUT SCH ×4 (10:00→21:53)
--- NOTE | 2018-05-26 10:17 | CONS ---
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 He had healing of the wound and then was advanced to a molded shoe insert, but was some shear breakdown noted in the clinic. He was returned to his boot immobilization. The wound at that time was much smaller than it is at this point in time during this admission. With some increasing size and increasing malodorous condition, the family recommended Xu come on into the emergency room, and he has been admitted through the medicine service. He is currently on Zosyn. Tanner does not complain of any recent fevers, chills, or sense of malaise or fatigue. He expresses frustration and some anger about the recurrent breakdown on the foot. He blames the orthotic. His medicines, current laboratories outlined in the previous note in the chart. PHYSICAL EXAM: On examination, Tanner is lying comfortably in bed. He is a large gentleman, but also mildly obese. He has some warm right lower extremity. He has a well-healed distal incision from his mid tarsal amputation, but he has a large ovoid ulcer on the mid portion of his plantar aspect, well proximal to the original incision wound. The wound itself does have some mild malodorous drainage. There is scant erythema around the wound. The foot itself has not markedly swollen. His MRI is pending and would be helpful to see if there is underlying osteomyelitis. Tanner had some difficulty healing this right foot infection, which originally was distal, then with recurrent transmetatarsal breakdown and then revision to midtarsal amputation, now with plantar breakdown. I would recommend with short- term IV antibiotics to control cellulitis and an MRI would be helpful. It is not clear whether he is going to need bone debridement during this admission. [id number]/[facility] #: [id number] KEDAR
[2018-05-26 11:04] LABS: Urine Appearance Clear; Urine Blood 1+ (Negative); Urine Color Yellow; Urine Ketones Negative (Negative); Urine Protein 3+(>=500 mg/dL) (Negative); Urine Red Blood Cell Trace(0-2/hpf) (Absent); Urine Specific Gravity 1.015 (1.010-1.030); Urine Urobilinogen Negative (Negative); Urine White Blood Cell Trace(0-5/hpf) (Absent)
--- NOTE | 2018-05-26 11:29 | RAD ---
Indication: Acute renal failure. Comparison: July 08, 2015 CT Technique: Renal ultrasound. Report: 13.0 x 6.9 x 6.1 cm RIGHT kidney. 13.4 x 6.6 x 6.9 cm LEFT kidney. Normal bilateral renal cortical thickness and echogenicity. No conspicuous focal renal lesions, stones, or hydronephrosis. IMPRESSION: #. Normal renal ultrasound.
[2018-05-27] MEDS: cefTRIAXone* 1 GM in NS 0.9% 50 ML BAG IVPB SCH (03:21)
[2018-05-27] MEDS: oxyCODONE/Acetamin 5/325 MG* TAB PO PRN ×2 (05:36→21:12)
[2018-05-27] MEDS: Heparin VIAL(*) 5000 UNITS/ML VIAL (FIVE THOUSAND) SUBCUT SCH ×3 (05:47→21:13)
[2018-05-27] MEDS: metroNIDAZOLE IV 500 MG/100ML* 500 MG/100 ML BAG IVPB SCH ×3 (05:47→21:13)
[2018-05-27 05:48] LABS: Hematocrit 25 % (42-52); Mean Corpuscular HGB Conc 32 g/dl (31-36); Mean Corpuscular Hemoglobin 28 pg (27-31); Mean Corpuscular Volume 86 fL (80-94); Mean Platelet Volume 8.3 um3 (7.4-10.4); Platelet Count 161 10^3/ul (150-450); Red Blood Count 2.88 10^6/ul (4.00-5.40); Red Cell Distribution Width 15 % (10.5-15); White Blood Count 4.3 10^3/ul (3.5-10.8)
[2018-05-27 06:15] LABS: EGFR Non-African American 11.7 (>60)
[2018-05-27] MEDS: Insulin LISPRO* 1 UNITS UNIT SUBCUT SCH ×6 (09:04→21:13)
[2018-05-27] MEDS: Insulin GLARGINE(*) 1 UNITS UNIT SUBCUT SCH (09:06)
[2018-05-27] MEDS: Gabapentin CAP(*) 300 MG PO SCH ×3 (09:08→21:12)
[2018-05-27] MEDS: NF:Fluticasone/Vilanterol MDI(NF) 100/25 MDI INH SCH (09:08)
[2018-05-27] MEDS: Sertraline* 50 MG TAB PO SCH (09:09)
[2018-05-27] MEDS: NIFEdipine ER TAB* 60 MG PO SCH (09:09)
[2018-05-27] MEDS ORDERED: Insulin GLARGINE(*) 1 UNITS UNIT SUBCUT SCH (10:59)
[2018-05-27] MEDS ORDERED: Dextrose 50% Syringe 50 ML* 25 GM/50 ML SYRINGE IV PUSH PRN (11:00)
--- NOTE | 2018-05-27 11:04 | PN ---
Subjective Date of Service: 05/27/18 Interval History: Pt seen and examined. Meds and labs reviewed. CC: N/A ROS: Denied GUTIERREZ/dizziness, F/C, N/V, CP, SOB, increased cough, sputum production , abd pain, diarrhea, constipation, dysuria, myalgias, arthralgias, throat pain , and new skin lesions. The rest of the 14 point ROS are unremarkable. PHYSICAL EXAM: GEN APPEARANCE: Awake, not in acute distress HEENT: NC/AT, PERRLA, moist oral mucosa, (-) throat erythema NECK: Soft, supple, (-) cervical LAD, (-)JVD HEART: S1S2 WNL, RRR, No MRG CHEST: CTA, BL, GAE, No W/R/R ABD: Soft, ND/NT, NABS 4x Q EXT: No Clubbing, Cyanosis, - - b/l ankle edema +1 Skin: No Nodules or Sclerosis, - - s/p B/L TMA, R bottom of foot ulcer at 4x5 cm stage 3 PSYCH: No active psychosis, hallucinations, depression, SI/HI Objective Active Medications: Acetaminophen (Tylenol Tab*) 650 mg PO Q4H PRN PRN Reason: FEVER/PAIN Al Hydrox/Mg Hydrox/Simethicone (Maalox Plus*) 30 ml PO Q6H PRN PRN Reason: INDIGESTION Dextrose (D50w Syringe 50 Ml*) 12.5 gm IV PUSH .FOR FS < 60 - SS PRN PRN Reason: FS < 60 Dextrose (D50w Syringe 50 Ml*) 12.5 gm IV PUSH .FOR FS < 60 - SS PRN PRN Reason: FS < 60 Fluticasone/Vilanterol (Breo Ellipta Mdi 100/25(Nf)) 1 puff INH DAILY [facility] Last Admin: 05/27/18 09:08 Dose: Not Given Gabapentin (Neurontin Cap(*)) 300 mg PO TID [facility] Last Admin: 05/27/18 09:08 Dose: 300 mg Heparin Sodium (Porcine) (Heparin Vial(*)) 5,000 units SUBCUT Q8HR [facility] Last Admin: 05/27/18 05:47 Dose: 5,000 units Metronidazole/Sodium Chloride (Flagyl 500 Mg Ivpb*) 500 mg in 100 mls @ 100 mls /hr IVPB Q8H [facility] Last Admin: 05/27/18 05:47 Dose: 100 mls/hr Ceftriaxone Sodium 1 gm/ (Sodium Chloride) 50 mls @ 200 mls/hr IVPB Q24H [facility] Last Admin: 05/27/18 03:21 Dose: 200 mls/hr Insulin Glargine (Lantus(*)) 55 units SUBCUT Q24H [facility] Insulin Human Lispro (Humalog*) 0 units SUBCUT ACHS [facility] ENRIQUE; Protocol Last Admin: 05/27/18 09:04 Dose: 4 units Insulin Human Lispro (Humalog*) 6 units SUBCUT AC [facility] Mupirocin (Bactroban 2 % Oint*) 1 applic TOPICAL .DRESSING CHANGE PRN PRN Reason: WITH DRESSING CHANGES Last Admin: 05/25/18 23:50 Dose: 1 applic Nifedipine (Procardia Xl Tab*) 60 mg PO DAILY [facility] Last Admin: 05/27/18 09:09 Dose: 60 mg Oxycodone/Acetaminophen (Percocet 5/325 Tab*) 1 tab PO Q6H PRN PRN Reason: PAIN Last Admin: 05/27/18 05:36 Dose: 1 tab Sertraline HCl (Zoloft*) 50 mg PO DAILY [facility] Last Admin: 05/27/18 09:09 Dose: 50 mg Vital Signs - 8 hr 05/27/18 05/27/18 05/27/18 03:57 05:36 07:45 Temperature 98.0 F 98.6 F Pulse Rate 64 59 Respiratory 16 16 15 Rate Blood Pressure 140/74 139/75 (mmHg) O2 Sat by Pulse 94 92 Oximetry 05/27/18 05/27/18 09:05 09:08 Temperature Pulse Rate Respiratory 18 18 Rate Blood Pressure (mmHg) O2 Sat by Pulse Oximetry Oxygen Devices in Use Now: Nasal Cannula Result Diagrams: 05/27/18 05:11 05/27/18 05:11 Additional Lab and Data: Lab Results 05/25/18 05/25/18 05/25/18 Range/Units 17:27 17:27 17:27 WBC 6.9 (3.5-10.8) 10^3/ul RBC 2.97 L (4.00-5.40) 10^6/ul Hgb 8.2 L (14.0-18.0) g/dl Hct 26 L (42-52) % MCV 86 (80-94) fL MCH 28 (27-31) pg MCHC 32 (31-36) g/dl RDW 15 (10.5-15) % Plt Count 175 (150-450) 10^3/ul MPV 8.1 (7.4-10.4) um3 Neut % (Auto) 74.5 (38-83) % Lymph % (Auto) 12.3 L (25-47) % Trigg % (Auto) 10.5 H (0-7) % Eos % (Auto) 1.9 (0-6) % Baso % (Auto) 0.8 (0-2) % Absolute Neuts (auto) 5.2 (1.5-7.7) 10^3/ul Absolute Lymphs (auto) 0.9 L (1.0-4.8) 10^3/ul Absolute Monos (auto) 0.7 (0-0.8) 10^3/ul Absolute Eos (auto) 0.1 (0-0.6) 10^3/ul Absolute Basos (auto) 0.1 (0-0.2) 10^3/ul Absolute Nucleated RBC 0 10^3/ul Nucleated RBC % 0.1 ESR 120 H (0-20) mm/Hr INR (Anticoag Therapy) 1.02 (0.77-1.02) APTT 32.5 (26.0-36.3) seconds Sodium 135 (135-145) mmol/L Potassium 4.3 (3.5-5.0) mmol/L Chloride 106 (101-111) mmol/L Carbon Dioxide 21 L (22-32) mmol/L Anion Gap 8 (2-11) mmol/L BUN 54 H (6-24) mg/dL Creatinine 4.82 H (0.67-1.17) mg/dL Est GFR ( Amer) 15.6 (>60) Est GFR (Non-Af Amer) 12.9 (>60) BUN/Creatinine Ratio 11.2 (8-20) Glucose 313 H (70-100) mg/dL Lactic Acid (0.5-2.0) mmol/L Calcium 8.1 L (8.6-10.3) mg/dL Total Bilirubin 0.30 (0.2-1.0) mg/dL AST 10 L (13-39) U/L ALT 9 (7-52) U/L Alkaline Phosphatase 87 (34-104) U/L Troponin I 0.02 (<0.04) ng/mL C-Reactive Protein 96.45 H (<8.01) mg/L B-Natriuretic Peptide ( - 100) pg/mL Total Protein 6.3 L (6.4-8.9) g/dL Albumin 3.0 L (3.2-5.2) g/dL Globulin 3.3 (2-4) g/dL Albumin/Globulin Ratio 0.9 L (1-3) 05/25/18 05/25/18 Range/Units 17:27 17:27 WBC (3.5-10.8) 10^3/ul RBC (4.00-5.40) 10^6/ul Hgb (14.0-18.0) g/dl Hct (42-52) % MCV (80-94) fL MCH (27-31) pg MCHC (31-36) g/dl RDW (10.5-15) % Plt Count (150-450) 10^3/ul MPV (7.4-10.4) um3 Neut % (Auto) (38-83) % Lymph % (Auto) (25-47) % Trigg % (Auto) (0-7) % Eos % (Auto) (0-6) % Baso % (Auto) (0-2) % Absolute Neuts (auto) (1.5-7.7) 10^3/ul Absolute Lymphs (auto) (1.0-4.8) 10^3/ul Absolute Monos (auto) (0-0.8) 10^3/ul Absolute Eos (auto) (0-0.6) 10^3/ul Absolute Basos (auto) (0-0.2) 10^3/ul Absolute Nucleated RBC 10^3/ul Nucleated RBC % ESR (0-20) mm/Hr INR (Anticoag Therapy) (0.77-1.02) APTT (26.0-36.3) seconds Sodium (135-145) mmol/L Potassium (3.5-5.0) mmol/L Chloride (101-111) mmol/L Carbon Dioxide (22-32) mmol/L Anion Gap (2-11) mmol/L BUN (6-24) mg/dL Creatinine (0.67-1.17) mg/dL Est GFR ( Amer) (>60) Est GFR (Non-Af Amer) (>60) BUN/Creatinine Ratio (8-20) Glucose (70-100) mg/dL Lactic Acid 0.8 (0.5-2.0) mmol/L Calcium (8.6-10.3) mg/dL Total Bilirubin (0.2-1.0) mg/dL AST (13-39) U/L ALT (7-52) U/L Alkaline Phosphatase (34-104) U/L Troponin I (<0.04) ng/mL C-Reactive Protein (<8.01) mg/L B-Natriuretic Peptide 128 H ( - 100) pg/mL Total Protein (6.4-8.9) g/dL Albumin (3.2-5.2) g/dL Globulin (2-4) g/dL Albumin/Globulin Ratio (1-3) Microbiology and Other Data: Microbiology 05/25/18 23:53 Skin and Soft Tissue MRSA/MSSA (PCR - Final Foot Right Mrsa Negative S.aureus Positive Gram Stain - Final Assess/Plan/Problems-Billing Assessment: 52 yo M with h/o DM, CKD stage 4, B/L TMA, hyperkalemia presents with ulcer of R foot - Patient Problems (1) Osteomyelitis of ankle or foot Current Visit: No Status: Acute Code(s): M86.9 - OSTEOMYELITIS, UNSPECIFIED SNOMED Code(s): 98821044 Comment: -wound cx growing MSSA -Cont Ceftriaxone/flagyl -Appreciate Dr. Galarza's consult -MRI of R foot ordered, suspect osteoMRI pending (2) Diabetes Current Visit: No Status: Chronic Code(s): E11.9 - TYPE 2 DIABETES MELLITUS WITHOUT COMPLICATIONS SNOMED Code(s): 05988821 Comment: -Slightly uncontrolled -Will increase Lantus and add low dose lispro during pre-meals in addition to ISS (3) Anemia of chronic disease Current Visit: No Status: Chronic Code(s): D63.8 - ANEMIA IN OTHER CHRONIC DISEASES CLASSIFIED ELSEWHERE SNOMED Code(s): 041457043 Comment: -Chronic with mild worsening today. May be due to worsening renal function -No symptoms/signs of bleeding (4) CKD (chronic kidney disease) Current Visit: No Status: Chronic Code(s): N18.9 - CHRONIC KIDNEY DISEASE, UNSPECIFIED SNOMED Code(s): 453331399 Comment: Likely due to combination of DM and HTN. DIONTE this hospital stay-baseline creat at 3 cont to hold diuretic. Start gentle IVF. Check FeNa and renal US. Try to obtain recent med list from PCP (5) COPD (chronic obstructive pulmonary disease) Current Visit: No Status: Chronic Code(s): J44.9 - CHRONIC OBSTRUCTIVE PULMONARY DISEASE, UNSPECIFIED SNOMED Code(s): 71692041 Comment: - Not in exacerbation (6) Hypertension Current Visit: No Status: Chronic Code(s): I10 - ESSENTIAL (PRIMARY) HYPERTENSION SNOMED Code(s): 96098009 Comment: - Continue Procardia, - Continue to hold Lisinopril in the setting of DIONTE (7) DVT prophylaxis Current Visit: No Status: Acute Code(s): ZTL7875 - SNOMED Code(s): 079945756 Comment: - HSQ Status and Disposition: inpatient
[2018-05-28] MEDS: cefTRIAXone* 1 GM in NS 0.9% 50 ML BAG IVPB SCH (03:09)
[2018-05-28] MEDS: metroNIDAZOLE IV 500 MG/100ML* 500 MG/100 ML BAG IVPB SCH ×2 (05:29→13:32)
[2018-05-28] MEDS: Heparin VIAL(*) 5000 UNITS/ML VIAL (FIVE THOUSAND) SUBCUT SCH ×3 (05:29→21:24)
[2018-05-28] MEDS: oxyCODONE/Acetamin 5/325 MG* TAB PO PRN ×3 (05:35→21:25)
[2018-05-28 06:12] LABS: Hematocrit 24 % (42-52); Hemoglobin 7.8 g/dl (14.0-18.0); Mean Corpuscular HGB Conc 32 g/dl (31-36); Mean Corpuscular Hemoglobin 28 pg (27-31); Mean Corpuscular Volume 85 fL (80-94); Mean Platelet Volume 8.3 um3 (7.4-10.4); Platelet Count 159 10^3/ul (150-450); Red Blood Count 2.81 10^6/ul (4.00-5.40); Red Cell Distribution Width 16 % (10.5-15); White Blood Count 3.9 10^3/ul (3.5-10.8)
[2018-05-28 06:28] LABS: EGFR Non-African American 12.1 (>60)
[2018-05-28] MEDS ORDERED: Magnesium Sulfate 2 GM IV* 2 GM/50 ML BAG IV ONE (07:39)
[2018-05-28] MEDS: Insulin LISPRO* 1 UNITS UNIT SUBCUT SCH ×7 (08:09→21:25)
[2018-05-28] MEDS: NIFEdipine ER TAB* 60 MG PO SCH (08:10)
[2018-05-28] MEDS: Gabapentin CAP(*) 300 MG PO SCH ×3 (08:10→21:26)
[2018-05-28] MEDS: Sertraline* 50 MG TAB PO SCH (08:10)
[2018-05-28] MEDS: NF:Fluticasone/Vilanterol MDI(NF) 100/25 MDI INH SCH (08:11)
[2018-05-28] MEDS: Insulin GLARGINE(*) 1 UNITS UNIT SUBCUT SCH (08:15)
[2018-05-28] MEDS: Mometasone/Formoter 200/5 MDI INH SCH ×2 (10:01→20:33)
[2018-05-28] MEDS: Calcium Acetate CAP* 667 MG PO SCH ×2 (10:02→17:21)
--- NOTE | 2018-05-28 10:11 | RAD ---
Indication: Diabetic ulcer plantar aspect residual RIGHT foot. Comparison: May 25, 2018 radiographs and January 09, 2018 MRI. Technique: [employer] Calla 1.5 Shereen [id number] with PEARSALL suite. Limited exam due to poor patient tolerance for the examination. Sagittal T1, axial T1, axial inversion recovery, and coronal T1 series obtained. The [id number] extends from the ankle and hindfoot through the stoma at the tarsal metatarsal amputation. Report: Suggestion of a shallow soft tissue ulcer at the plantar aspect of the foot subjacent to the transverse tarsal joint and midfoot. Diffuse soft tissue edema most prominent over the dorsum of the foot No loculated soft tissue plane abscess collection evident. Very mild T2 hyperintense bone marrow edema at the head of the talus unchanged from the January 09, 2018 exam without compelling associated loss of T1 marrow hyperintensity. Bone marrow signal is otherwise normal throughout the [id number]. No significant joint effusions evident. Fluid within the tibialis posterior tendon sheath consistent with tenosynovitis. 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 Os trigonum accessory ossicle noted. Mild polyarticular osteoarthritis. IMPRESSION: #. Limited study due to poor patient tolerance for MRI examination. #. Shallow plantar aspect soft tissue ulcer diffuse soft tissue edema. No loculated soft tissue plane abscess collection evident. #. No compelling evidence for osteomyelitis. #. Polyarticular osteoarthritis. Probable associated reactive bone marrow edema at the head of the talus unchanged from the January 09, 2018 exam.
--- NOTE | 2018-05-28 15:40 | PN ---
Subjective Date of Service: 05/28/18 Interval History: Pt seen and examined. Meds and labs reviewed. CC: N/A ROS: Denied GUTIERREZ/dizziness, F/C, N/V, CP, SOB, increased cough, sputum production , abd pain, diarrhea, constipation, dysuria, myalgias, arthralgias, throat pain , and new skin lesions. The rest of the 14 point ROS are unremarkable. PHYSICAL EXAM: GEN APPEARANCE: Awake, not in acute distress HEENT: NC/AT, PERRLA, moist oral mucosa, (-) throat erythema NECK: Soft, supple, (-) cervical LAD, (-)JVD HEART: S1S2 WNL, RRR, No MRG CHEST: CTA, BL, GAE, No W/R/R ABD: Soft, ND/NT, NABS 4x Q EXT: No Clubbing, Cyanosis, - - b/l ankle edema +1 SKIN: No Nodules or Sclerosis, - - s/p B/L TMA, R bottom of foot ulcer at 4x5 cm stage 3 PSYCH: No active psychosis, hallucinations, depression, SI/HI Objective Active Medications: Acetaminophen (Tylenol Tab*) 650 mg PO Q4H PRN PRN Reason: FEVER/PAIN Al Hydrox/Mg Hydrox/Simethicone (Maalox Plus*) 30 ml PO Q6H PRN PRN Reason: INDIGESTION Calcium Acetate (Phoslo Cap*) 667 mg PO AC [facility] Last Admin: 05/28/18 10:02 Dose: 667 mg Cholecalciferol (Vitamin D Tab*) 2,000 units PO DAILY [facility] Dextrose (D50w Syringe 50 Ml*) 12.5 gm IV PUSH .FOR FS < 60 - SS PRN PRN Reason: FS < 60 Gabapentin (Neurontin Cap(*)) 300 mg PO TID [facility] Last Admin: 05/28/18 13:37 Dose: 300 mg Heparin Sodium (Porcine) (Heparin Vial(*)) 5,000 units SUBCUT Q8HR [facility] Last Admin: 05/28/18 13:37 Dose: 5,000 units Ceftriaxone Sodium 1 gm/ (Sodium Chloride) 50 mls @ 200 mls/hr IVPB Q24H [facility] Last Admin: 05/28/18 03:09 Dose: 200 mls/hr Insulin Glargine (Lantus(*)) 55 units SUBCUT DAILY@0900 [facility] Last Admin: 05/28/18 08:15 Dose: 55 units Insulin Human Lispro (Humalog*) 0 units SUBCUT ACHS [facility]; Protocol Last Admin: 05/28/18 12:30 Dose: 2 units Insulin Human Lispro (Humalog*) 6 units SUBCUT AC [facility] Last Admin: 05/28/18 12:30 Dose: 6 units Mometasone Furoate/Formoterol Fumar (Dulera 200/5 Mdi*) 2 puff INH BID [facility] Last Admin: 05/28/18 10:01 Dose: 2 puff Mupirocin (Bactroban 2 % Oint*) 1 applic TOPICAL .DRESSING CHANGE PRN PRN Reason: WITH DRESSING CHANGES Last Admin: 05/25/18 23:50 Dose: 1 applic Nifedipine (Procardia Xl Tab*) 60 mg PO DAILY [facility] Last Admin: 05/28/18 08:10 Dose: 60 mg Oxycodone/Acetaminophen (Percocet 5/325 Tab*) 1 tab PO Q6H PRN PRN Reason: PAIN Last Admin: 05/28/18 13:38 Dose: 1 tab Sertraline HCl (Zoloft*) 50 mg PO DAILY [facility] Last Admin: 05/28/18 08:10 Dose: 50 mg Vital Signs - 8 hr 05/28/18 05/28/18 05/28/18 07:50 08:00 08:10 Temperature Pulse Rate Respiratory 14 15 15 Rate Blood Pressure (mmHg) O2 Sat by Pulse Oximetry 05/28/18 05/28/18 05/28/18 10:03 11:40 13:37 Temperature 97.8 F Pulse Rate 66 Respiratory 15 20 16 Rate Blood Pressure 154/83 (mmHg) O2 Sat by Pulse 96 Oximetry 05/28/18 05/28/18 13:38 15:30 Temperature Pulse Rate Respiratory 16 15 Rate Blood Pressure (mmHg) O2 Sat by Pulse Oximetry Oxygen Devices in Use Now: Nasal Cannula Result Diagrams: 05/28/18 05:28 05/28/18 05:28 Additional Lab and Data: Lab Results 05/25/18 05/25/18 05/25/18 Range/Units 17:27 17:27 17:27 WBC 6.9 (3.5-10.8) 10^3/ul RBC 2.97 L (4.00-5.40) 10^6/ul Hgb 8.2 L (14.0-18.0) g/dl Hct 26 L (42-52) % MCV 86 (80-94) fL MCH 28 (27-31) pg MCHC 32 (31-36) g/dl RDW 15 (10.5-15) % Plt Count 175 (150-450) 10^3/ul MPV 8.1 (7.4-10.4) um3 Neut % (Auto) 74.5 (38-83) % Lymph % (Auto) 12.3 L (25-47) % [place] % (Auto) 10.5 H (0-7) % Eos % (Auto) 1.9 (0-6) % Baso % (Auto) 0.8 (0-2) % Absolute Neuts (auto) 5.2 (1.5-7.7) 10^3/ul Absolute Lymphs (auto) 0.9 L (1.0-4.8) 10^3/ul Absolute Monos (auto) 0.7 (0-0.8) 10^3/ul Absolute Eos (auto) 0.1 (0-0.6) 10^3/ul Absolute Basos (auto) 0.1 (0-0.2) 10^3/ul Absolute Nucleated RBC 0 10^3/ul Nucleated RBC % 0.1 ESR 120 H (0-20) mm/Hr INR (Anticoag Therapy) 1.02 (0.77-1.02) APTT 32.5 (26.0-36.3) seconds Sodium 135 (135-145) mmol/L Potassium 4.3 (3.5-5.0) mmol/L Chloride 106 (101-111) mmol/L Carbon Dioxide 21 L (22-32) mmol/L Anion Gap 8 (2-11) mmol/L BUN 54 H (6-24) mg/dL Creatinine 4.82 H (0.67-1.17) mg/dL Est GFR ( Amer) 15.6 (>60) Est GFR (Non-Af Amer) 12.9 (>60) BUN/Creatinine Ratio 11.2 (8-20) Glucose 313 H (70-100) mg/dL Lactic Acid (0.5-2.0) mmol/L Calcium 8.1 L (8.6-10.3) mg/dL Total Bilirubin 0.30 (0.2-1.0) mg/dL AST 10 L (13-39) U/L ALT 9 (7-52) U/L Alkaline Phosphatase 87 (34-104) U/L Troponin I 0.02 (<0.04) ng/mL C-Reactive Protein 96.45 H (<8.01) mg/L B-Natriuretic Peptide ( - 100) pg/mL Total Protein 6.3 L (6.4-8.9) g/dL Albumin 3.0 L (3.2-5.2) g/dL Globulin 3.3 (2-4) g/dL Albumin/Globulin Ratio 0.9 L (1-3) 05/25/18 05/25/18 Range/Units 17:27 17:27 WBC (3.5-10.8) 10^3/ul RBC (4.00-5.40) 10^6/ul Hgb (14.0-18.0) g/dl Hct (42-52) % MCV (80-94) fL MCH (27-31) pg MCHC (31-36) g/dl RDW (10.5-15) % Plt Count (150-450) 10^3/ul MPV (7.4-10.4) um3 Neut % (Auto) (38-83) % Lymph % (Auto) (25-47) % [place] % (Auto) (0-7) % Eos % (Auto) (0-6) % Baso % (Auto) (0-2) % Absolute Neuts (auto) (1.5-7.7) 10^3/ul Absolute Lymphs (auto) (1.0-4.8) 10^3/ul Absolute Monos (auto) (0-0.8) 10^3/ul Absolute Eos (auto) (0-0.6) 10^3/ul Absolute Basos (auto) (0-0.2) 10^3/ul Absolute Nucleated RBC 10^3/ul Nucleated RBC % ESR (0-20) mm/Hr INR (Anticoag Therapy) (0.77-1.02) APTT (26.0-36.3) seconds Sodium (135-145) mmol/L Potassium (3.5-5.0) mmol/L Chloride (101-111) mmol/L Carbon Dioxide (22-32) mmol/L Anion Gap (2-11) mmol/L BUN (6-24) mg/dL Creatinine (0.67-1.17) mg/dL Est GFR ( Amer) (>60) Est GFR (Non-Af Amer) (>60) BUN/Creatinine Ratio (8-20) Glucose (70-100) mg/dL Lactic Acid 0.8 (0.5-2.0) mmol/L Calcium (8.6-10.3) mg/dL Total Bilirubin (0.2-1.0) mg/dL AST (13-39) U/L ALT (7-52) U/L Alkaline Phosphatase (34-104) U/L Troponin I (<0.04) ng/mL C-Reactive Protein (<8.01) mg/L B-Natriuretic Peptide 128 H ( - 100) pg/mL Total Protein (6.4-8.9) g/dL Albumin (3.2-5.2) g/dL Globulin (2-4) g/dL Albumin/Globulin Ratio (1-3) Microbiology and Other Data: Microbiology 05/25/18 23:53 Skin and Soft Tissue MRSA/MSSA (PCR - Final Foot Right Mrsa Negative S.aureus Positive Gram Stain - Final Assess/Plan/Problems-Billing Assessment: 52 yo M with h/o DM, CKD stage 4, B/L TMA, hyperkalemia presents with ulcer of R foot - Patient Problems (1) Cellulitis of right foot Current Visit: Yes Status: Acute Code(s): L03.115 - CELLULITIS OF RIGHT LOWER LIMB SNOMED Code(s): 400293603 Comment: -Wound cx growing MSSA -Cont Ceftriaxone and will D/C Flagyl given no anaerobes identified by GS and speciation -D/W Dr. Martinez early this AM and will await for any further input -Appreciate Dr. Galarza's consult -MRI of R foot shows no evidence for osteomyelitis previously suspected (2) Diabetes Current Visit: No Status: Chronic Code(s): E11.9 - TYPE 2 DIABETES MELLITUS WITHOUT COMPLICATIONS SNOMED Code(s): 52781301 Comment: -Improved -Continue Lantus and add low dose lispro during pre-meals in addition to ISS (3) Electrolyte abnormality Current Visit: Yes Status: Acute Code(s): E87.8 - OTH DISORDERS OF ELECTROLYTE AND FLUID BALANCE, NEC SNOMED Code(s): 638448552 Comment: -Corrected Magnesium and phosphate levels; phosphate level likely secondary to secondary hyperparathyroidism given renal failure and vitamin D deficiency -Will check for iPTH to confirm (4) Vitamin D deficiency Current Visit: Yes Status: Acute Code(s): E55.9 - VITAMIN D DEFICIENCY, UNSPECIFIED SNOMED Code(s): 66660854 Comment: -Please see above discussion (5) CKD (chronic kidney disease) Current Visit: No Status: Chronic Code(s): N18.9 - CHRONIC KIDNEY DISEASE, UNSPECIFIED SNOMED Code(s): 984893262 Comment: -Likely due to combination of DM and HTN. -DIONTE this hospital stay-baseline creat at 3 -cont to hold diuretic. Start gentle IVF. -Renal U/S unremarkable (05/26) (6) Anemia of chronic disease Current Visit: No Status: Chronic Code(s): D63.8 - ANEMIA IN OTHER CHRONIC DISEASES CLASSIFIED ELSEWHERE SNOMED Code(s): 495827255 Comment: -Relatively stable -No symptoms/signs of bleeding (7) COPD (chronic obstructive pulmonary disease) Current Visit: No Status: Chronic Code(s): J44.9 - CHRONIC OBSTRUCTIVE PULMONARY DISEASE, UNSPECIFIED SNOMED Code(s): 70415828 Comment: - Not in exacerbation (8) Hypertension Current Visit: No Status: Chronic Code(s): I10 - ESSENTIAL (PRIMARY) HYPERTENSION SNOMED Code(s): 22285885 Comment: - Continue Procardia, - Continue to hold Lisinopril in the setting of DIONTE (9) DVT prophylaxis Current Visit: No Status: Acute Code(s): GCY1934 - SNOMED Code(s): 939726081 Comment: - HSQ Status and Disposition: -Awaiting for PT to re-eval -Await any further ID and ortho input
[2018-05-28] MEDS: Cholecalciferol TAB* 1000 UNITS PO SCH (17:22)
[2018-05-29] MEDS: cefTRIAXone* 1 GM in NS 0.9% 50 ML BAG IVPB SCH (02:33)
[2018-05-29] MEDS: Heparin VIAL(*) 5000 UNITS/ML VIAL (FIVE THOUSAND) SUBCUT SCH ×2 (05:37→14:37)
[2018-05-29 07:28] LABS: ABS Basophils 0 10^3/ul (0-0.2); ABS Eosinophils 0.1 10^3/ul (0-0.6); ABS Lymphocytes 0.6 10^3/ul (1.0-4.8); ABS Monocytes 0.4 10^3/ul (0-0.8); ABS Neutrophils 3.3 10^3/ul (1.5-7.7); ABS Nucleated RBC 0 10^3/ul; Eosinophil % 1.9 % (0-6); Hematocrit 26 % (42-52); Hemoglobin 8.3 g/dl (14.0-18.0); Lymphocyte % 13.6 % (25-47); Mean Corpuscular HGB Conc 33 g/dl (31-36); Mean Corpuscular Hemoglobin 28 pg (27-31); Mean Corpuscular Volume 86 fL (80-94); Mean Platelet Volume 8.1 um3 (7.4-10.4); Nucleated Red Blood Cells % 0.1; Platelet Count 188 10^3/ul (150-450); Red Blood Count 2.98 10^6/ul (4.00-5.40); Red Cell Distribution Width 15 % (10.5-15); White Blood Count 4.4 10^3/ul (3.5-10.8)
[2018-05-29 07:46] LABS: EGFR Non-African American 12.9 (>60)
[2018-05-29] MEDS: NIFEdipine ER TAB* 60 MG PO SCH (08:23)
[2018-05-29] MEDS: Gabapentin CAP(*) 300 MG PO SCH ×2 (08:23→14:37)
[2018-05-29] MEDS: Calcium Acetate CAP* 667 MG PO SCH ×3 (08:24→17:49)
[2018-05-29] MEDS: Sertraline* 50 MG TAB PO SCH (08:24)
[2018-05-29] MEDS: Cholecalciferol TAB* 1000 UNITS PO SCH (08:24)
[2018-05-29] MEDS: Mometasone/Formoter 200/5 MDI INH SCH (08:24)
[2018-05-29] MEDS: Insulin LISPRO* 1 UNITS UNIT SUBCUT SCH ×6 (08:25→17:50)
[2018-05-29] MEDS: Insulin GLARGINE(*) 1 UNITS UNIT SUBCUT SCH (08:26)
[2018-05-29] MEDS ORDERED: Metoprolol Tartrate TAB* 25 MG PO SCH (09:00)
[2018-05-29] MEDS ORDERED: Calcitriol CAP* 0.25 MCG PO SCH ×2 (09:00)
--- NOTE | 2018-05-29 10:53 | PN ---
Progress Note - Progress Note Date of Service: 05/29/18 SOAP: Subjective: [Pt see this morning sitting in bed. States he is ready to go home today. Pt states he has an issue with transport home. Pt denies any chest pain, SOB, nausea or vomiting. ] Objective: [General: A&Ox3, NAD. MSK, RLE: Dressing is c/d/i. Calf soft and non tender. ] Vital Signs Temp 97.9 F 05/29/18 07:47 Pulse 73 05/29/18 07:47 Resp 18 05/29/18 08:23 BP 173/80 05/29/18 07:47 Pulse Ox 98 05/29/18 07:47 Intake & Output 05/28/18 05/29/18 05/29/18 18:59 06:59 18:59 Intake Total 510 1210 520 Output Total 850 475 800 Balance -340 735 -280 Weight 363 lb Intake: IVPB 50 ABX - CEFTRIAXONE 50 Oral 510 1160 520 Output: Urine 850 475 800 Other: Estimated Void Medium Date of Last Bowel 05/29/18 Movement # Bowel Movements 1 Estimated Stool Amount Large # Voids 1 Assessment: [Cellulitis of right foot ] Plan: [Dr. Fields to see the pt today, will await his opinion on oral abx. Once we have the oral abx we will discharge the pt home Will enlist the aide of a medicaid taxi. ]
[2018-05-29] MEDS: Mupirocin 2% OINT* TUBE TOPICAL PRN (11:41)
--- NOTE | 2018-05-29 16:27 | PN ---
Subjective Date of Service: 05/29/18 Interval History: Pt seen and examined. Meds and labs reviewed. CC: N/A ROS: Denied GUTIERREZ/dizziness, F/C, N/V, CP, SOB, increased cough, sputum production , abd pain, diarrhea, constipation, dysuria, myalgias, arthralgias, throat pain , and new skin lesions. The rest of the 14 point ROS are unremarkable. PHYSICAL EXAM: GEN APPEARANCE: Awake, not in acute distress HEENT: NC/AT, PERRLA, moist oral mucosa, (-) throat erythema NECK: Soft, supple, (-) cervical LAD, (-)JVD HEART: S1S2 WNL, RRR, No MRG CHEST: CTA, BL, GAE, No W/R/R ABD: Soft, ND/NT, NABS 4x Q EXT: No Clubbing, Cyanosis, - - b/l ankle edema +1 SKIN: No Nodules or Sclerosis, - - s/p B/L TMA, R bottom of foot ulcer at 4x5 cm stage 3 PSYCH: No active psychosis, hallucinations, depression, SI/HI Objective Active Medications: Acetaminophen (Tylenol Tab*) 650 mg PO Q4H PRN PRN Reason: FEVER/PAIN Al Hydrox/Mg Hydrox/Simethicone (Maalox Plus*) 30 ml PO Q6H PRN PRN Reason: INDIGESTION Calcitriol (Rocaltrol Cap*) 0.5 mcg PO DAILY [facility] Last Admin: 05/29/18 09:25 Dose: 0.5 mcg Calcium Acetate (Phoslo Cap*) 667 mg PO AC [facility] Last Admin: 05/29/18 13:09 Dose: 667 mg Dextrose (D50w Syringe 50 Ml*) 12.5 gm IV PUSH .FOR FS < 60 - SS PRN PRN Reason: FS < 60 Gabapentin (Neurontin Cap(*)) 300 mg PO TID [facility] Last Admin: 05/29/18 14:37 Dose: 300 mg Heparin Sodium (Porcine) (Heparin Vial(*)) 5,000 units SUBCUT Q8HR [facility] Last Admin: 05/29/18 14:37 Dose: 5,000 units Ceftriaxone Sodium 1 gm/ (Sodium Chloride) 50 mls @ 200 mls/hr IVPB Q24H [facility] Last Admin: 05/29/18 02:33 Dose: 200 mls/hr Insulin Glargine (Lantus(*)) 55 units SUBCUT DAILY@0900 [facility] Last Admin: 05/29/18 08:26 Dose: 55 units Insulin Human Lispro (Humalog*) 0 units SUBCUT ACHS [facility]; Protocol Last Admin: 05/29/18 13:08 Dose: 2 units Insulin Human Lispro (Humalog*) 6 units SUBCUT AC [facility] Last Admin: 05/29/18 13:09 Dose: 6 units Metoprolol Tartrate (Lopressor Tab*) 12.5 mg PO Q12HR [facility] Last Admin: 05/29/18 09:26 Dose: 12.5 mg Mometasone Furoate/Formoterol Fumar (Dulera 200/5 Mdi*) 2 puff INH BID [facility] Last Admin: 05/29/18 08:24 Dose: 2 puff Mupirocin (Bactroban 2 % Oint*) 1 applic TOPICAL .DRESSING CHANGE PRN PRN Reason: WITH DRESSING CHANGES Last Admin: 05/29/18 11:41 Dose: 1 applic Nifedipine (Procardia Xl Tab*) 60 mg PO DAILY [facility] Last Admin: 05/29/18 08:23 Dose: 60 mg Oxycodone/Acetaminophen (Percocet 5/325 Tab*) 1 tab PO Q6H PRN PRN Reason: PAIN Last Admin: 05/28/18 21:25 Dose: 1 tab Sertraline HCl (Zoloft*) 50 mg PO DAILY [facility] Last Admin: 05/29/18 08:24 Dose: 50 mg Vital Signs - 8 hr 05/29/18 05/29/18 05/29/18 10:30 12:10 14:37 Temperature 97.6 F Pulse Rate 69 Respiratory 18 18 20 Rate Blood Pressure 166/84 (mmHg) O2 Sat by Pulse 95 Oximetry Oxygen Devices in Use Now: None Result Diagrams: 05/29/18 06:59 05/29/18 06:59 Additional Lab and Data: Lab Results 05/25/18 05/25/18 05/25/18 Range/Units 17:27 17:27 17:27 WBC 6.9 (3.5-10.8) 10^3/ul RBC 2.97 L (4.00-5.40) 10^6/ul Hgb 8.2 L (14.0-18.0) g/dl Hct 26 L (42-52) % MCV 86 (80-94) fL MCH 28 (27-31) pg MCHC 32 (31-36) g/dl RDW 15 (10.5-15) % Plt Count 175 (150-450) 10^3/ul MPV 8.1 (7.4-10.4) um3 Neut % (Auto) 74.5 (38-83) % Lymph % (Auto) 12.3 L (25-47) % [place] % (Auto) 10.5 H (0-7) % Eos % (Auto) 1.9 (0-6) % Baso % (Auto) 0.8 (0-2) % Absolute Neuts (auto) 5.2 (1.5-7.7) 10^3/ul Absolute Lymphs (auto) 0.9 L (1.0-4.8) 10^3/ul Absolute Monos (auto) 0.7 (0-0.8) 10^3/ul Absolute Eos (auto) 0.1 (0-0.6) 10^3/ul Absolute Basos (auto) 0.1 (0-0.2) 10^3/ul Absolute Nucleated RBC 0 10^3/ul Nucleated RBC % 0.1 ESR 120 H (0-20) mm/Hr INR (Anticoag Therapy) 1.02 (0.77-1.02) APTT 32.5 (26.0-36.3) seconds Sodium 135 (135-145) mmol/L Potassium 4.3 (3.5-5.0) mmol/L Chloride 106 (101-111) mmol/L Carbon Dioxide 21 L (22-32) mmol/L Anion Gap 8 (2-11) mmol/L BUN 54 H (6-24) mg/dL Creatinine 4.82 H (0.67-1.17) mg/dL Est GFR ( Amer) 15.6 (>60) Est GFR (Non-Af Amer) 12.9 (>60) BUN/Creatinine Ratio 11.2 (8-20) Glucose 313 H (70-100) mg/dL Lactic Acid (0.5-2.0) mmol/L Calcium 8.1 L (8.6-10.3) mg/dL Total Bilirubin 0.30 (0.2-1.0) mg/dL AST 10 L (13-39) U/L ALT 9 (7-52) U/L Alkaline Phosphatase 87 (34-104) U/L Troponin I 0.02 (<0.04) ng/mL C-Reactive Protein 96.45 H (<8.01) mg/L B-Natriuretic Peptide ( - 100) pg/mL Total Protein 6.3 L (6.4-8.9) g/dL Albumin 3.0 L (3.2-5.2) g/dL Globulin 3.3 (2-4) g/dL Albumin/Globulin Ratio 0.9 L (1-3) 05/25/18 05/25/18 Range/Units 17:27 17:27 WBC (3.5-10.8) 10^3/ul RBC (4.00-5.40) 10^6/ul Hgb (14.0-18.0) g/dl Hct (42-52) % MCV (80-94) fL MCH (27-31) pg MCHC (31-36) g/dl RDW (10.5-15) % Plt Count (150-450) 10^3/ul MPV (7.4-10.4) um3 Neut % (Auto) (38-83) % Lymph % (Auto) (25-47) % [place] % (Auto) (0-7) % Eos % (Auto) (0-6) % Baso % (Auto) (0-2) % Absolute Neuts (auto) (1.5-7.7) 10^3/ul Absolute Lymphs (auto) (1.0-4.8) 10^3/ul Absolute Monos (auto) (0-0.8) 10^3/ul Absolute Eos (auto) (0-0.6) 10^3/ul Absolute Basos (auto) (0-0.2) 10^3/ul Absolute Nucleated RBC 10^3/ul Nucleated RBC % ESR (0-20) mm/Hr INR (Anticoag Therapy) (0.77-1.02) APTT (26.0-36.3) seconds Sodium (135-145) mmol/L Potassium (3.5-5.0) mmol/L Chloride (101-111) mmol/L Carbon Dioxide (22-32) mmol/L Anion Gap (2-11) mmol/L BUN (6-24) mg/dL Creatinine (0.67-1.17) mg/dL Est GFR ( Amer) (>60) Est GFR (Non-Af Amer) (>60) BUN/Creatinine Ratio (8-20) Glucose (70-100) mg/dL Lactic Acid 0.8 (0.5-2.0) mmol/L Calcium (8.6-10.3) mg/dL Total Bilirubin (0.2-1.0) mg/dL AST (13-39) U/L ALT (7-52) U/L Alkaline Phosphatase (34-104) U/L Troponin I (<0.04) ng/mL C-Reactive Protein (<8.01) mg/L B-Natriuretic Peptide 128 H ( - 100) pg/mL Total Protein (6.4-8.9) g/dL Albumin (3.2-5.2) g/dL Globulin (2-4) g/dL Albumin/Globulin Ratio (1-3) Microbiology and Other Data: Microbiology 05/25/18 23:53 Skin and Soft Tissue MRSA/MSSA (PCR - Final Foot Right Mrsa Negative S.aureus Positive Gram Stain - Final Assess/Plan/Problems-Billing Assessment: 52 yo M with h/o DM, CKD stage 4, B/L TMA, hyperkalemia presents with ulcer of R foot - Patient Problems (1) Cellulitis of right foot Current Visit: Yes Status: Acute Code(s): L03.115 - CELLULITIS OF RIGHT LOWER LIMB SNOMED Code(s): 156158749 Comment: -Wound cx growing MSSA -Cont Ceftriaxone and will D/C Flagyl given no anaerobes identified by GS and speciation -D/W Dr. Martinez early this AM and will await further input upon evaluation--- discussed the possibility of placing pt on [place] but will await any further reccs upon review -Appreciate Dr. Galarza's consult -MRI of R foot shows no evidence for osteomyelitis previously suspected (2) Hypertension, uncontrolled Current Visit: Yes Status: Acute Code(s): I10 - ESSENTIAL (PRIMARY) HYPERTENSION SNOMED Code(s): 09180467 Comment: -Added Metoprolol to his regimen -Continue Nifedipine (3) Secondary hyperparathyroidism Current Visit: Yes Status: Acute Code(s): N25.81 - SECONDARY HYPERPARATHYROIDISM OF RENAL ORIGIN SNOMED Code(s): 54919866 Comment: -Likely due to Vitamin deficiency due to CKD -Placed pt on Calcitriol and phosphate binders -Placed pt on renal diet in addition to low Sodium diet for HTN (4) Diabetes Current Visit: No Status: Chronic Code(s): E11.9 - TYPE 2 DIABETES MELLITUS WITHOUT COMPLICATIONS SNOMED Code(s): 76941574 Comment: -Improved -Continue Lantus and add low dose lispro during pre-meals in addition to ISS (5) Electrolyte abnormality Current Visit: Yes Status: Acute Code(s): E87.8 - OTH DISORDERS OF ELECTROLYTE AND FLUID BALANCE, NEC SNOMED Code(s): 948065052 Comment: -Corrected Magnesium and phosphate levels; phosphate level likely secondary to secondary hyperparathyroidism given renal failure and vitamin D deficiency -Will check for iPTH to confirm (6) Vitamin D deficiency Current Visit: Yes Status: Acute Code(s): E55.9 - VITAMIN D DEFICIENCY, UNSPECIFIED SNOMED Code(s): 49128618 Comment: -Please see above discussion (7) CKD (chronic kidney disease) Current Visit: No Status: Chronic Code(s): N18.9 - CHRONIC KIDNEY DISEASE, UNSPECIFIED SNOMED Code(s): 686296636 Comment: -Likely due to combination of DM and HTN. -DIONTE this hospital stay-baseline creat at 3 -cont to hold diuretic. Start gentle IVF. -Renal U/S unremarkable (05/26) (8) Anemia of chronic disease Current Visit: No Status: Chronic Code(s): D63.8 - ANEMIA IN OTHER CHRONIC DISEASES CLASSIFIED ELSEWHERE SNOMED Code(s): 270593878 Comment: -Relatively stable -No symptoms/signs of bleeding (9) COPD (chronic obstructive pulmonary disease) Current Visit: No Status: Chronic Code(s): J44.9 - CHRONIC OBSTRUCTIVE PULMONARY DISEASE, UNSPECIFIED SNOMED Code(s): 07338566 Comment: - Not in exacerbation (10) DVT prophylaxis Current Visit: No Status: Acute Code(s): BXA2644 - SNOMED Code(s): 561803713 Comment: - HSQ Status and Disposition: -Awaiting for PT to re-eval -Await any further ID and ortho input
[2018-05-29 16:57] VITALS: BP 154/80
--- NOTE | 2018-05-29 20:33 | CONS ---
CONSULTATION REPORT: DATE OF CONSULT: 05/29/18 REQUESTING PHYSICIAN: Dr. Galarza. CONSULTING SERVICE: Infectious Disease. REASON FOR CONSULT: Foot infection. IMPRESSION: 1. History of right foot transmetatarsal amputation, now with a plantar midfoot ulcer. Wound culture grew Staph aureus, methicillin sensitive. No osteomyelitis or abscess on MRI. History of cellulitis and wound infection. 2. Morbid obesity. 3. Chronic kidney disease, stage 4, with acute kidney injury. 4. Insulin-dependent diabetes. RECOMMENDATION: Keflex 500 mg by mouth twice a day, dosed per his GFR and body size for 14 days. We will see if the pharmacy can give him the 5-day supply, he does get paid until 06/02/18 and cannot afford it today. He will follow up with Dr. Galarza for casting. HISTORY OF PRESENT ILLNESS: This is a 52-year-old diabetic man with a right foot infection, admitted with foul odor from a plantar ulcer. He has had transmetatarsal amputation last spring, which was healed, but has had an ulcer developed over the last few days. It started as a boil or pustule and it finally ruptured. He put a bandage over it. There was some foul odor, so his family brought him to the emergency room on 05/25/18. He was started on broad- spectrum antibiotics. A wound culture was taken with results as above. The redness around it has resolved and he has no pain. MRI showed no osteomyelitis or abscess. PAST MEDICAL HISTORY: 1. Morbid obesity. 2. Insulin-dependent diabetes with neuropathy. 3. Chronic kidney disease, stage 4. 4. Status post bilateral transmetatarsal amputations. 5. Hypertension. 6. Depression. 7. Peripheral vascular disease. MEDICATIONS: 1. Tylenol. 2. Calcitriol. 3. Ceftriaxone 1 g a day. 4. Gabapentin. 5. Heparin subcutaneous injection. 6. Insulin glargine. 7. Insulin lispro. 8. Metoprolol. 9. Nifedipine. 10. Sertraline. FAMILY HISTORY: No recurrent infections. SOCIAL HISTORY: Lives in [place]. No travel. No sick contacts. REVIEW OF SYSTEMS: All negative except as noted above to a 14-point review of systems. PHYSICAL EXAM: Vital Signs: Temperature is 36.4, heart rate 70, respiratory rate 18, blood pressure 160/80, oxygen saturation 95% on room air. In general, he is awake, not in distress. Neurologic: He is oriented x3. Follows all commands. HEENT: There is no conjunctival hemorrhage. Oropharynx without thrush. Neck is supple without mass. Heart is regular rate and rhythm without murmurs, rubs, or gallops. Lungs are clear to auscultation bilaterally. Abdomen: Soft, nontender, nondistended. There are bowel sounds present. Skin : There is no rash or splinter hemorrhage. Musculoskeletal: Right foot, there is a plantar 3 cm ulcer with some granulation tissue. No surrounding erythema. LABORATORY DATA: White blood cell count 4, hemoglobin 8, platelets 188. Creatinine is 4.8, potassium 4.7. Please see impressions and recommendations as outlined above. Thanks for asking me to see Mr. Galo in consultation. [id number]/MARINA #: [id number] [email or web address]
--- NOTE | 2018-05-30 01:51 | DS ---
CC: Dr. Martinez; Dr. Tobias; Dr. Monica Valle; Dr. Robert Mcintyre; Dr. Siddhartha Morrison * DISCHARGE SUMMARY: DATE OF ADMISSION: DATE OF DISCHARGE: 05/29/18 DISCHARGE DIAGNOSES: As follows: 1. Cellulitis of the right foot. 2. Hypertension, uncontrolled, improved. 3. Secondary hyperparathyroidism, likely secondary to vitamin D deficiency due to chronic kidney disease. 4. History of chronic kidney disease, likely due to diabetes and hypertension along with diuretics. 5. History of diabetes. 6. History of anemia of chronic disease. 7. History of chronic obstructive pulmonary disease. HISTORY OF PRESENT ILLNESS/HOSPITAL COURSE: The patient is a 52-year-old gentleman with history of hypertension, diabetes, and CKD stage 4, with history of status post bilateral tarsometatarsal amputations for osteomyelitis and diabetic- associated foot ulcers, who has had a complicated postoperative course after TMA of the right foot that required taking the patient back to the OR for revision of amputation of the right mid foot in December 2017. He mentioned that since his last stay in December, he was placed on oral antibiotics and has done well and subsequently started wearing a shoe prosthetic and then subsequently developed a sore approximately 1 month prior to his admission. He then noticed that the wound started to have some foul odor and his sister then advised him to go to the emergency department for further evaluation, at which point, on 05/25/18, he was admitted for suspicion of a possible recurrent osteomyelitis. However, subsequent MRI of the aforementioned extremity did not reveal any compelling evidence for osteomyelitis. He was also seen in consultation by Dr. Martinez who then subsequently recommended and narrowed his antibiotics to Keflex 500 mg p.o. b.i.d. for 2 more weeks which he will be discharged on. His skin tissue culture did show MSSA that is sensitive for cefazolin. He was also found to have electrolyte abnormalities and uncontrolled hypertension. His hypertension was previously being controlled by multiple diuretics which has been stopped given his worsening renal function and per his history, he does not have any documented history of CHF. He was also subsequently found to have vitamin D deficiency, thought to be due to his CKD causing secondary hyperparathyroidism which is evident by the fact that his intact PTH is very high at 28.3 where the upper limit of normal is only 9.3. He was therefore placed on PhosLo as well as calcitriol supplementations and hence will defer with followup with either a computer systems auditor as an outpatient and/ or his PCP post-discharge. He was advised to follow up and/or call his PCP within 3 days post discharge and he was advised to follow up with Dr. Martinez and to call [phone] to make/ confirm his appointment. He was advised that if he is having problems and/or if his symptoms worsen, to call his PCP first to see if his concerns can be addressed in a timely manner and if not or if he has been advised to go to the ER due to scheduling issues alone to once again discuss with his PCP, whether [facility] or an outpatient visit somewhere would be appropriate. He is advised to call [facility] if it is not an emergency, or if he is unable to touch base with his PCP. He was advised to call my office regarding any questions, concerns, or further clarifications regarding his discharge plans and/or his prescriptions and to take his medications as prescribed. PHYSICAL EXAMINATION ON DISCHARGE: Shows the most recent vital signs of records with blood pressure of 154/80, with heart rate of 70 beats per minute, 18 per minute respiratory rate, saturating at 98% on room air, temperature of 97.4 degrees Fahrenheit. General Appearance: The patient is awake, alert, and oriented x3 and not in acute distress. HEENT: Normocephalic, atraumatic. PERRLA. Extraocular muscles intact. Negative for icterus. Moist oral mucosa. Negative throat erythema. Neck is soft, supple with no cervical lymphadenopathy. No JVD. Heart: S1, S2 within normal limits, regular rate and rhythm. No murmurs, rubs, and gallops. Chest: Clear to auscultation bilaterally. Good air entry. No wheezes, rales, or rhonchi. Abdomen is soft, nondistended, nontender. Normoactive bowel sounds x4. Extremities: No cyanosis or clubbing with 1+ bilateral lower extremity edema. Skin: There are no nodules, no sclerosis, status post bilateral TMA, right bottom foot ulcer about 4 x 5 cm, stage 3. Psychiatric: No active psychosis, hallucinations, depression, no suicidal or homicidal ideation. DISCHARGE MEDICATIONS: As follows: 1. Tylenol 650 mg p.o. q. 4 hours p.r.n. 2. Calcitriol 0.5 mcg p.o. daily. 3. PhosLo capsule 667 mg p.o. q.a.c. 4. Gabapentin 300 mg p.o. t.i.d. 5. Insulin glargine 55 units subcu daily. 6. Metoprolol 12.5 mg p.o. q. 12 hours. 7. Nifedipine 60 mg p.o. daily. 8. Sertraline 50 mg p.o. daily. 9. Cephalexin 500 mg p.o. b.i.d. for 14 days. 10. Breo Ellipta MDI 100/25 one puff inhalation daily. 11. Regular insulin 10 units subcu t.i.d. 12. Floranex tablets 2 tabs p.o. daily for 18 days. 13. Ranitidine 150 mg p.o. b.i.d. 14. Simvastatin 20 mg p.o. daily. TIME SPENT: The total time spent evaluating patient, reviewing pertinent data, and appropriate documentation is greater than 30 minutes. [id number]/[facility] #: [id number] MTD[facility]
== END 2018-05-29 18:55 | disposition home or self-care (01) | DRG 603 ==
LOC: ED 16:18 → SSU 18:58
PROVIDERS: ADMIT Internal Medicine; ATTEND Student in an Organized Health Care Education/Training Program
DX: L03.115 Cellulitis of right lower limb (principal); N17.9 Acute kidney failure, unspecified; N18.4 Chronic kidney disease, stage 4 (severe); N25.81 Secondary hyperparathyroidism of renal origin; Z68.41 Body mass index [BMI] 40.0-44.9, adult; E11.42 Type 2 diabetes mellitus with diabetic polyneuropathy; E11.22 Type 2 diabetes mellitus with diabetic chronic kidney disease; E11.21 Type 2 diabetes mellitus with diabetic nephropathy; E11.621 Type 2 diabetes mellitus with foot ulcer; E87.5 Hyperkalemia; E66.01 Morbid (severe) obesity due to excess calories; E11.65 Type 2 diabetes mellitus with hyperglycemia; I13.10 Hypertensive heart and chronic kidney disease without heart failure, with stage 1 through stage 4 chronic kidney disease, or unspecified chronic kidney disease; I16.0 Hypertensive urgency; B95.61 Methicillin susceptible Staphylococcus aureus infection as the cause of diseases classified elsewhere; E55.9 Vitamin D deficiency, unspecified; D63.1 Anemia in chronic kidney disease; J44.9 Chronic obstructive pulmonary disease, unspecified; F32.9 Major depressive disorder, single episode, unspecified; Z89.421 Acquired absence of other right toe(s); Z89.422 Acquired absence of other left toe(s); Z88.1 Allergy status to other antibiotic agents; Z91.018 Allergy to other foods; Z88.8 Allergy status to other drugs, medicaments and biological substances; Z83.3 Family history of diabetes mellitus; Z87.891 Personal history of nicotine dependence; Z79.4 Long term (current) use of insulin; Z79.899 Other long term (current) drug therapy
CPT/HCPCS: 36415; 71045; 76775; 80048; 80053; 81003; 81015; 82306; 82570; 82652; 83036; 83605; 83735; 83880; 83970; 84100; 84300; 84484; 85025; 85027; 85610; 85652; 85730; 86140; 87040; 87070; 87077; 87086; 87186; 87205; 87640; 87641; 94640; 99284; A9270-GY; J0690; J0696; J0744; J1644; J3475; J3490

== ENCOUNTER 2018-06-19 12:02 | Inpatient (IN) | payer MEDICARE, MEDICAID ==
[2018-06-19] MEDS ORDERED: Furosemide IV* 10 MG/ML 10 ML VIAL (100 MG) IV ONE ×2 (12:21→17:58)
--- NOTE | 2018-06-19 12:24 | ED ---
Shortness of Breath - HPI Summary HPI Summary: This patient is a 52 year old M BIBA to [facility] from PCPs office due to SOB today while having cast placed on his RLE. He is typically on 2.5L of [place] O2 at home, but states unable to take portable O2. Patient reports recent 40 pound weight gain in the past two weeks after he was taken of Lasix. He is unsure of his Lasix dosage. Patient placed on 3L of NC O2, with improvement of SOB. - History of Current Complaint Chief Complaint: EDShortnessOfBreath Time Seen by Provider: 06/19/18 12:08 Hx Obtained From: Patient Onset/Duration: Lasting Hours Timing: Constant Current Severity: Mild Dyspnea At: Rest Associated Signs & Symptoms: Edema Related History: Obesity - Allergy/Home Medications Allergies/Adverse Reactions: Allergies Allergy/AdvReac Type Severity Reaction Status Date / Time peanut Allergy Rash Verified 06/19/18 12:17 peanut oil Allergy Rash Verified 06/19/18 12:17 spinach Allergy "My tongue Verified 06/19/18 12:17 swells up and I can't breathe." strawberry Allergy "My tongue Verified 06/19/18 12:17 swells right up." sulfamethoxazole Allergy "I don't Verified 06/19/18 12:17 [From Bactrim] know ... lips swelled up." trimethoprim [From Bactrim] Allergy "I don't Verified 06/19/18 12:17 know ... lips swelled up." Home Medications: Home Medications Ranitidine TAB (NF) [Zantac TAB (NF)] 150 mg PO BID 06/19/18 [History Confirmed 06/19/18] PMH/Surg Hx/FS Hx/Imm Hx Endocrine/Hematology History: Reports: Hx Diabetes, Hx Anemia Denies: Hx Blood Transfusions, Hx Systemic Lupus Erythematosus, Hx Thyroid Disease, Other Endocrine/Hematological Disorders Cardiovascular History: Reports: Hx Angina, Hx Coronary Artery Disease, Hx Hypercholesterolemia, Hx Hypertension, Hx Peripheral Vascular Disease Denies: Hx Congestive Heart Failure, Hx Myocardial Infarction, Hx Pacemaker/ ICD, Hx Valvular Heart Disease Respiratory History: Reports: Hx Chronic Obstructive Pulmonary Disease (COPD) - home O2, does not use, Hx Seasonal Allergies, Hx Sleep Apnea - suspected, Other Respiratory Problems/Disorders - COPD Denies: Hx Asthma, Hx Pulmonary Embolism GI History: Reports: Hx Gastroesophageal Reflux Disease Denies: Hx Ulcer History: Reports: Hx Kidney Stones - possibly 04/2018 per Pt, Other Problems/Disorders - CKD Denies: Hx Dialysis, Hx Kidney Infection, Hx Renal Disease Musculoskeletal History: Reports: Other Musculoskeletal History - 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 L achilles tendon remove Denies: Hx Rheumatoid Arthritis Sensory History: Reports: Hx Cataracts Denies: Hx Contacts or Glasses, Hx Hearing Aid Opthamlomology History: Reports: Hx Cataracts Denies: Hx Contacts or Glasses Neurological History: Reports: Hx Headaches, Other Neuro Impairments/Disorders - Hx Pre syncope, phantom toe pain left foot, yousuf numb/tingling feet Psychiatric History: Reports: Hx Anxiety - PRN LORAZEPAM, Hx Depression Denies: Hx Panic Disorder - Cancer History Hx Chemotherapy: No - Surgical History Surgery Procedure, Year, and Place: right big toe amputation, - ALL REMOVED NOW (11/2017). CATARACT WITH LENS IMPLANTS - BY DR DENNEY. 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 Hx Anesthesia Reactions: No Infectious Disease History: No Infectious Disease History: Reports: Hx of Known/Suspected MRSA - [facility], Chest, 2004 Denies: Hx Hepatitis, Hx Human Immunodeficiency Virus (HIV), History Other Infectious Disease, Traveled Outside the [place] in Last 30 Days - Family History Known Family History: Positive: Diabetes Negative: Cardiac Disease - Social History Alcohol Use: Rare Substance Use Type: Reports: None Substance Use Comment - Amount & Last Used: CHEWING TOBACCO Smoking Status (MU): Former Smoker Type: Smokeless Tobacco Amount Used/How Often: quit in 2009 Length of Time of Smoking/Using Tobacco: <1 PPD x 26 Years Have You Smoked in the Last Year: No Review of Systems Positive: Shortness Of Breath Positive: Edema - weight gain All Other Systems Reviewed And Are Negative: Yes Physical Exam - Summary Physical Exam Summary: Appearance: The patient is morbidly obese in no acute distress and in no acute pain. Skin: The skin is warm and dry and skin color reflects adequate perfusion. HEENT: The head is normocephalic and atraumatic. The pupils are equal and reactive. The conjunctivae are clear and without drainage. Nares are patent and without drainage. Mouth reveals moist mucous membranes and the throat is without erythema and exudate. The external ears are intact. The ear canals are patent and without drainage. The tympanic membranes are intact. Neck: The neck is supple with full range of motion and non-tender. There are no carotid bruits. There is no neck vein distension. Respiratory: Chest is non-tender. Lungs are clear to auscultation and breath sounds are symmetrical and equal. Cardiovascular: Heart is regular rate and rhythm. There is no murmur or rub auscultated. There is peripheral edema and pulses are symmetrical and equal. Abdomen: The abdomen is soft and non-tender. There are normal bowel sounds heard in all four quadrants and there is no organomegaly palpated. Musculoskeletal: There is no back tenderness noted. Extremities are non-tender with full range of motion. There is good capillary refill. There is peripheral edema but no calf tenderness elicited. Neurological: Patient is alert and oriented to person, place and time. The patient has symmetrical motor strength in all four extremities. Cranial nerves are grossly intact. Deep tendon reflexes are symmetrical and equal in all four extremities. Psychiatric: The patient has an appropriate affect and does not exhibit any anxiety or depression. Triage Information Reviewed: Yes Vital Signs On Initial Exam: Initial Vitals Temp Pulse Resp BP Pulse Ox 98 F 61 15 183/86 98 06/19/18 12:11 06/19/18 12:11 06/19/18 12:11 06/19/18 12:11 06/19/18 12:11 Vital Signs Reviewed: Yes Diagnostics - Vital Signs Vital Signs Temp Pulse Resp BP Pulse Ox 06/19/18 12:11 98 F 61 15 183/86 98 - Laboratory Result Diagrams: 06/19/18 12:40 06/19/18 12:40 Lab Statement: Any lab studies that have been ordered have been reviewed, and results considered in the medical decision making process. - Radiology CXR Radiology Interpretation Completed By: Radiologist - CARDIOMEGALY WITH INTERSTITIAL EDEMA CONSISTENT WITH CHF. ED Physician has reviewed this report. - EKG 1237 Cardiac Rate: NL - 62 BPM EKG Rhythm: Sinus Rhythm ST Segment: Normal Ectopy: None EKG Interpretation: Normal sinus rhythm, normal ST, no ectopy, no STEMI Course/Dx - Course Course Of Treatment: Mr. Galo came in with shortness of breath especially with exertion. He also reports a 40 pound weight gain and that his Lasix has been recently stopped. His exam and chest x-ray and labs were consistent with CHF and he was given IV Lasix and allowed to diurese here in the emergency department. After he had diuresed a liter or so of urine, he was ambulated about the department but could not go far, got very short of breath and his pulse ox dropped down. The hospitalist service was contacted for admission and further diuresis. - Diagnoses Provider Diagnoses: Metabolic acidosis, CHF (congestive heart failure) - Critical Care Time Critical Care Time: 30-74 min Discharge - Sign-Out/Discharge Documenting (check all that apply): Patient Departure - Discharge Plan Condition: Stable Disposition: ADMITTED TO [facility] - Billing Disposition and Condition Condition: STABLE Disposition: Admitted to [facility] - Attestation Statements Document Initiated by Scribe: Yes Documenting Scribe: Cee Kwok Provider For Whom Deloris is Documenting (Include Credential): Ronald Jose MD Scribe Attestation: Cee Cabral, scribed for Ronald Jose MD on 06/19/18 at 2128. Scribe Documentation Reviewed: Yes Provider Attestation: The documentation as recorded by the Cee vicente accurately reflects the service I personally performed and the decisions made by me, Ronald Jose MD
[2018-06-19 12:48] LABS: ABS Basophils 0 10^3/ul (0-0.2); ABS Eosinophils 0.3 10^3/ul (0-0.6); ABS Lymphocytes 0.6 10^3/ul (1.0-4.8); ABS Monocytes 0.5 10^3/ul (0-0.8); ABS Neutrophils 3.9 10^3/ul (1.5-7.7); ABS Nucleated RBC 0 10^3/ul; Eosinophil % 5.4 % (0-6); Hematocrit 28 % (42-52); Hemoglobin 8.5 g/dl (14.0-18.0); Lymphocyte % 11.3 % (25-47); Mean Corpuscular HGB Conc 31 g/dl (31-36); Mean Corpuscular Hemoglobin 28 pg (27-31); Mean Corpuscular Volume 90 fL (80-94); Nucleated Red Blood Cells % 0.1; Platelet Count 177 10^3/ul (150-450); Red Blood Count 3.07 10^6/ul (4.00-5.40); Red Cell Distribution Width 18 % (10.5-15); White Blood Count 5.3 10^3/ul (3.5-10.8)
[2018-06-19 13:04] LABS: INR 1.04 (0.77-1.02)
[2018-06-19 13:07] LABS: EGFR Non-African American 12.4 (>60)
--- NOTE | 2018-06-19 13:13 | RAD ---
Indication: Shortness of breath. Single frontal view of the chest performed at 1300 hours was reviewed. Comparison is made with previous exam dated May 25, 2018. Cardiomegaly is noted. Interstitial edema consistent with CHF is noted. No alveolar consolidation is noted. IMPRESSION: CARDIOMEGALY WITH INTERSTITIAL EDEMA CONSISTENT WITH CHF.
--- NOTE | 2018-06-19 17:51 | ED ---
Course/Dx - Diagnoses Provider Diagnoses: Metabolic acidosis, CHF (congestive heart failure) - Provider Notifications Discussed Care Of Patient With: Beth Tobias Time Discussed With Above Provider: 16:30 Instructed by Provider To: Admit As Inpatient Discharge - Sign-Out/Discharge Documenting (check all that apply): Patient Departure - admit patient to [facility] - Discharge Plan Condition: Stable Disposition: ADMITTED TO [facility] Referrals: Siddhartha Morrison DO [Primary Care Provider] - - Attestation Statements Document Initiated by Scribe: Yes Documenting Scribe: Jenn Gutierrez Provider For Whom Scribe is Documenting (Include Credential): Roanld Jose MD Scribe Attestation: Jenn Cabral, scribed for Ronald Jose MD on 06/19/18 at 1749.
[2018-06-19] MEDS ORDERED: Sodium Citrate/Citric Acid* 15 ML UDC PO ONE (17:57)
[2018-06-19] MEDS ORDERED: Metolazone TAB* 5 MG PO ONE (17:58)
[2018-06-19] MEDS ORDERED: Dextrose 50% Syringe 50 ML* 25 GM/50 ML SYRINGE IV PUSH PRN ×2 (19:08→19:13)
[2018-06-19] MEDS ORDERED: Insulin LISPRO* 1 UNITS UNIT SUBCUT SCH ×2 (20:00→21:00)
--- NOTE | 2018-06-19 22:47 | HP ---
CONTINUATION ADDENDUM NOW INCLUDED ON THIS REPORT CC: Dr. Ramirez; Dr. Galarza * ADMISSION HISTORY AND PHYSICAL: DATE OF ADMISSION: 06/19/18 CHIEF COMPLAINT: Shortness of breath. PRIMARY CARE PROVIDER: Dr. Morrison of [facility]. ORTHOPEDIST: Dr. Galarza. FOUNDATION ASSISTANT: He also has a hog grader at [facility] whose name he cannot recall. ATTENDING PROVIDER: Beth Tobias MD * (DICTATED BY LEOPOLDO AGIURRE NP ) HISTORY OF PRESENT ILLNESS: This is a 52-year-old male patient known to our service from previous admissions who presented with progressive 2 weeks of shortness of breath. The patient states he had had multiple admissions over the summer, one admission here and one at [facility] for a nonhealing foot wound and fluid overload. The patient does have a history significant for uncontrolled diabetes mellitus, uncontrolled wounds of the feet, and chronic kidney disease. Upon examination today in the emergency department it was determined that his creatinine is 4.97, he is fluid overloaded. The patient states that his diuretics were stopped at some point, he does not recall the date. However, he went to Dr. Galarza's office today to get a calf change on his stump when he was weighed. They noticed he gained 40 pounds in 2 weeks which the patient attributes to fluid overload. The patient states again that he had no diuretics on board. He was taking Lasix prior to which he was taken off of. Apparently, his primary care provider did find out that that medication was stopped and had restarted the patient to hand picker this prescription, but had not gotten the chance to start his diuretics again. In the meantime he was becoming progressively short of breath and also was noted in Dr. Galarza's office to have an O2 saturation of 86% on room air. He was then sent to the emergency department for evaluation where we were asked to evaluate the patient for admission. PAST MEDICAL HISTORY: Again significant for heart failure, chronic kidney disease, hypertension, insulin-dependent diabetes mellitus, chronic nonhealing foot wound status post transmetatarsal amputations bilaterally, chronic anemia, and hyperkalemia. MEDICATIONS: At home include: 1. PhosLo capsule 667 mg p.o. before meals. 2. Calcitriol 0.5 mcg p.o. daily. 3. Acetaminophen 650 mg q.4 hours as needed. 4. Sertraline 50 mg p.o. daily. 5. Nifedipine 60 mg p.o. daily. 6. Metoprolol tartrate 12.5 mg q.12 hours. 7. Floranex tablet 2 tablets p.o. daily. 8. Regular insulin 10 units subcu 3 times a day. 9. Glargine 55 units subcu daily at 9 a.m. 10. Gabapentin 300 mg 3 times daily. 11. Fluticasone 1 puff inhaled daily. 12. Simvastatin 20 mg daily. 13. Zantac 150 mg p.o. b.i.d. ALLERGIES: BACTRIM which causes tongue swelling. FAMILY HISTORY: Father and grandmother both have diabetes mellitus type 2. SOCIAL HISTORY: He quit smoking in 2009, drinks alcohol rarely states maybe 1 day a month he will have a glass of wine if he is out to dinner and denies any illicit drug use. He does live by himself. He does have a girlfriend who is his health care proxy. REVIEW OF SYSTEMS: 10-point review of systems is otherwise negative except as noted in the HPI. PHYSICAL EXAMINATION GENERAL: The patient is alert, in no acute distress. VITAL SIGNS: Blood pressure 175/78, heart rate 64, respiratory rate 20, O2 saturation 98% on 3 liters nasal cannula with a temperature of 97.0. HEENT: The patient is atraumatic and normocephalic. PERRLA, has nonicteric sclerae. Oral mucosa is moist. Tongue is midline. NECK: Supple and nontender. No JVD noted. No thyromegaly appreciated. LUNGS: Diminished throughout the lung hallman. He has poor air entry likely secondary to body habitus and bilateral fine rales approximately half a way at the bases. CARDIOVASCULAR: Positive S1 and S2. No murmurs, gallops, or rubs noted. He has regular sinus rhythm on telemetry. ABDOMEN: Soft, nontender, and nondistended. Super morbidly obese, positive bowel sounds in all 4 quadrants. : Deferred. MUSCULOSKELETAL: There is no clubbing and no cyanosis. He has a dressing and cast on the lower extremity. I did not visualize the skin underneath the splint on his lower stump. CONTINUATION ADDENDUM: NEUROLOGIC: The patient is grossly intact with no focal deficits. PSYCHIATRIC: He is cooperative and appropriate. DIAGNOSTIC STUDIES/LAB DATA: WBC is 5.3, RBC is 3.07, hemoglobin 8.5, hematocrit 28, MCV 90, MCH 28, platelets 177. Sodium 139, potassium 5.5, chloride 116, CO2 of 17, BUN 69, creatinine 5.97, GFR is 12.4, glucose is 58, lactic acid 0.6, calcium 8.8. Bilirubin 0.20, AST 16, ALT 10, alk phos 86. Troponin is negative at 0.01. BNP is 382. Total protein 6.8, albumin 3.3. Arterial blood gas: pH is 7.18, CO2 is 45, PO2 is 109, bicarb 16.4, O2 saturation 97.6 with the base excess of 10.9. INR is 1.04. IMAGING: Chest x-ray dated 06/19/18, shows cardiomegaly with interstitial edema , consistent with CHF. IMPRESSION AND PLAN: This is a 52-year-old male patient, who presents after several admissions over the past couple of weeks with acute shortness of breath and fluid overload, being admitted now for potential for dialysis. 1. Metabolic acidosis. I have discussed this with Dr. Ramirez of Nephrology. The patient will have Bicitra 30 mL now and q.h.s. and then start t.i.d. tomorrow to try to buffer the patient and see if he responds. We will do a repeat ABG in the morning. 2. Shortness of breath with fluid overload. Again, this is likely secondary to his renal failure, but also concurrent heart failure. He has received 60 mg of Lasix in the ED. He will receive another 60 mg of Lasix IV, 5 mg of metolazone. Maintain the patient on oxygen and titrate and wean as needed. 3. For his history of heart failure, again the patient will be given some Lasix. He was taken off his diuretics for some reason since his last admission, we will defer to Nephrology. At this point, I think dialysis may work best for him, but we will defer to Dr. Ramirez. I will get an echocardiogram of the heart and assess for any additional dysfunction. 4. For his hypertension, we will continue him on his metoprolol and also nifedipine, and also blood pressure may have some regulation also from the higher doses of Lasix. 5. For his diabetes mellitus, we will continue him on the long-acting insulin and then place him on lispro 10 units before meals and sliding scale. 6. For his non-healing wounds, we will consult a wound care nurse. He did just see Dr. Galarza in the office today. We may consider consultation with Dr. Galarza if there are any further issues with the casting on his stump. 7. For his hyperkalemia, right now, the patient's potassium level is only 5.5. We will recheck it in the morning. I feel that buffering him right now with the Bicitra would be more advantageous given his acidotic state rather than giving the Kayexalate, which may have a reaction with his Bicitra. So, I recommend repeating the K in the morning and see if it is drifted down. If not , we may give the Kayexalate and then wait 2 hours and give the Bicitra. Dr. Ramirez has been formally consulted. He will be seeing the patient. 8. For DVT prophylaxis, the patient will be placed on heparin 5000 units subcu q.8 hours. 9. For diet, consistent carb, renal diet with low sodium. 10. Ambulance status. The patient may ambulate as tolerated. 11. The patient has been admitted to telemetry service under Dr. Beth Tobias as the attending. The rest of the patient's course will be determined by further diagnostics, laboratories, and any other inputs from other providers as warranted during this admission. We will continue to monitor the patient closely. LEOPOLDO AGUIRRE NP [id number]/[facility] #: [id number] #: [id number] [facility]
[2018-06-19] MEDS: Metoprolol Tartrate TAB* 25 MG PO SCH (22:54)
[2018-06-19] MEDS: Sodium Citrate/Citric Acid* 15 ML UDC PO SCH (22:54)
[2018-06-19] MEDS: Gabapentin CAP(*) 300 MG PO SCH (22:54)
[2018-06-19] MEDS: Heparin VIAL(*) 5000 UNITS/ML VIAL (FIVE THOUSAND) SUBCUT SCH (23:04)
--- NOTE | 2018-06-19 23:12 | HP ---
CC: Dr. Ramirez; Dr. Galarza; Dr. Beth Tobias ADMISSION HISTORY AND PHYSICAL: ADDENDUM: PHYSICAL EXAMINATION NEUROLOGIC: The patient is grossly intact with no focal deficits. PSYCHIATRIC: He is cooperative and appropriate. DIAGNOSTIC STUDIES/LAB DATA: WBC is 5.3, RBC is 3.07, hemoglobin 8.5, hematocrit 28, MCV 90, MCH 28, platelets 177. Sodium 139, potassium 5.5, chloride 116, CO2 of 17, BUN 69, creatinine 5.97, GFR is 12.4, glucose is 58, lactic acid 0.6, calcium 8.8. Bilirubin 0.20, AST 16, ALT 10, alk phos 86. Troponin is negative at 0.01. BNP is 382. Total protein 6.8, albumin 3.3. Arterial blood gas: pH is 7.18, CO2 is 45, PO2 is 109, bicarb 16.4, O2 saturation 97.6 with the base excess of 10.9. INR is 1.04. Imaging: Chest x-ray dated 06/19/18, shows cardiomegaly with interstitial edema consistent with CHF. IMPRESSION AND PLAN: This is a 52-year-old male patient, who presents after several admissions over the past couple of weeks with acute shortness of breath and fluid overload, being admitted now for potential for dialysis. 1. Metabolic acidosis. I have discussed this with Dr. Ramirez of Nephrology. The patient will have Bicitra 30 mL now and q.h.s. and then start t.i.d. tomorrow to try to buffer the patient and see if he responds. We will do a repeat ABG in the morning. 2. Shortness of breath with fluid overload. Again, this is likely secondary to his renal failure, but also concurrent heart failure. He has received 60 mg of Lasix in the ED. He will receive another 60 mg of Lasix IV, 5 mg of metolazone. Maintain the patient on oxygen and titrate and wean as needed. 3. For his history of heart failure, again the patient will be given some Lasix. He was taken off his diuretics for some reason since his last admission, we will defer to Nephrology. At this point, I think dialysis may work best for him, but we will defer to Dr. Ramirez. I will get an echocardiogram of the heart and assess for any additional dysfunction. 4. For his hypertension, we will continue him on his metoprolol and also nifedipine, and also blood pressure may have some regulation also from the higher doses of Lasix. 5. For his diabetes mellitus, we will continue him on the long-acting insulin and then place him on lispro 10 units before meals and sliding scale. 6. For his non-healing wounds, we will consult a wound care nurse. He did just see Dr. Galarza in the office today. We may consider consultation with Dr. Galarza if there are any further issues with the casting on his stump. 7. For his hyperkalemia, right now, the patient's potassium level is only 5.5. We will recheck it in the morning. I feel that buffering him right now with the Bicitra would be more advantageous given his acidotic state rather than giving the Kayexalate, which may have a reaction with his Bicitra. So, I recommend repeating the K in the morning and see if it is drifted down. If not , we may give the Kayexalate and then wait 2 hours and give the Bicitra. Dr. Ramirez has been formally consulted. He will be seeing the patient. 8. For DVT prophylaxis, the patient will be placed on heparin 5000 units subcu q.8 hours. 9. For diet, consistent carb, renal diet with low sodium. 10. Ambulance status. The patient may ambulate as tolerated. 11. The patient has been admitted to telemetry service under Dr. Beth Tobias as the attending. The rest of the patient's course will be determined by further diagnostics, laboratories, and any other inputs from other providers as warranted during this admission. We will continue to monitor the patient closely. LEOPOLDO AGUIRRE, SONYA [id number]/[facility] #: [id number] KEDAR
[2018-06-20] MEDS ORDERED: Melatonin 3 MG TAB PO PRN (02:52)
[2018-06-20 05:43] LABS: ABS Basophils 0 10^3/ul (0-0.2); ABS Eosinophils 0.3 10^3/ul (0-0.6); ABS Lymphocytes 0.9 10^3/ul (1.0-4.8); ABS Monocytes 0.5 10^3/ul (0-0.8); ABS Neutrophils 2.3 10^3/ul (1.5-7.7); ABS Nucleated RBC 0 10^3/ul; Eosinophil % 6.7 % (0-6); Hematocrit 24 % (42-52); Hemoglobin 7.7 g/dl (14.0-18.0); Lymphocyte % 22.8 % (25-47); Mean Corpuscular HGB Conc 32 g/dl (31-36); Mean Corpuscular Hemoglobin 29 pg (27-31); Mean Corpuscular Volume 88 fL (80-94); Mean Platelet Volume 7.9 um3 (7.4-10.4); Nucleated Red Blood Cells % 0.1; Platelet Count 151 10^3/ul (150-450); Red Blood Count 2.71 10^6/ul (4.00-5.40); Red Cell Distribution Width 18 % (10.5-15); White Blood Count 3.9 10^3/ul (3.5-10.8)
[2018-06-20 06:05] LABS: EGFR Non-African American 11.9 (>60)
[2018-06-20] MEDS: Heparin VIAL(*) 5000 UNITS/ML VIAL (FIVE THOUSAND) SUBCUT SCH ×3 (06:26→21:09)
[2018-06-20] MEDS: Fluticasone/Vilanterol MDI(NF) 100/25 MDI INH SCH (07:54)
[2018-06-20] MEDS: Insulin GLARGINE(*) 1 UNITS UNIT SUBCUT SCH (08:21)
[2018-06-20] MEDS: Sodium Citrate/Citric Acid* 15 ML UDC PO SCH ×3 (08:23→21:06)
[2018-06-20] MEDS: Calcium Acetate CAP* 667 MG PO SCH ×3 (08:24→17:12)
[2018-06-20] MEDS: Sertraline* 50 MG TAB PO SCH (08:24)
[2018-06-20] MEDS: Atorvastatin* 10 MG TAB PO SCH (08:24)
[2018-06-20] MEDS: Metoprolol Tartrate TAB* 25 MG PO SCH ×2 (08:25→21:07)
[2018-06-20] MEDS: Gabapentin CAP(*) 300 MG PO SCH ×3 (08:26→21:07)
[2018-06-20] MEDS: Famotidine TAB* 20 MG PO SCH (08:27)
[2018-06-20] MEDS: NIFEdipine ER TAB* 60 MG PO SCH (08:37)
[2018-06-20] MEDS: Calcitriol CAP* 0.25 MCG PO SCH (08:38)
[2018-06-20] MEDS ORDERED: Insulin GLARGINE(*) 1 UNITS UNIT SUBCUT SCH (09:00)
[2018-06-20] MEDS: Insulin LISPRO* 1 UNITS UNIT SUBCUT SCH ×3 (10:14→17:11)
[2018-06-20] MEDS ORDERED: Perflutren Lipid Microsphere* 3 ML VIAL ONE (10:34)
--- NOTE | 2018-06-20 13:58 | ECHO ---
Patient: AMMON HERNANDEZ [facility] Rec#: [id number] : 1965 Date: 06/20/2018 Age: 52y Height: 195.58 cm / 77.0 in Weight: 185.52 kg / 408.9 lbs Sex: M BSA: 3.03 Room#: 432 Admit Date#: 06/19/2018 Type: Inpatient Referring: Bárbara Germain Reading: Sivan Fagan MD Experimental Box Tester: Usha Jerez RDCS CC: Robert Galarza MD CC: Shashi Ramirez MD Transthoracic Echocardiogram Indication: CHF / SOB BP: 134/75 HR: 61 Rhythm: NSR Findings History: Morbid obesity,DM,CKD,heart failure,HTN,anemia,former smoker. This study was done with patient supine for patient's request. Technical Comments: The study is technically limited due to patient body habitus. The study is technically limited due to the patient's smoking history. The study was technically limited due to the patient's inability to lay in the left lateral decubitus position. Completed at 1125. Definity used to enhance images. Left Ventricle: Mild to moderate concentric left ventricular hypertrophy is observed. The left ventricle appears hyperdynamic.grossly normal wall motion. The estimated ejection fraction is 60-65%. Abnormal left ventricular diastolic function is observed. Left Atrium: The left atrium is mildly dilated. Right Ventricle: The right ventricular cavity size is normal. The right ventricular global systolic function is low normal. Right Atrium: The right atrium is not well visualized. Aortic Valve: The aortic valve structure is not well visualized. Mitral Valve: The mitral valve leaflets are mildly thickened. There is a trace of mitral regurgitation. There is no evidence of mitral stenosis. Tricuspid Valve: The tricuspid valve leaflets are normal. There is trace tricuspid regurgitation. There is no tricuspid stenosis. Pulmonic Valve: The pulmonic valve appears normal. There is no evidence of pulmonic regurgitation. There is no pulmonic stenosis. Pericardium: A pericardial fat pad is visualized. Aorta: There is no dilatation of the ascending aorta. There is no dilatation of the aortic arch. There is no dilation of the aortic root. Pulmonary Artery: The main pulmonary artery appears normal. Venous: The venous system is not well visualized. Contrast: Definity was used to optimize study. A total of 6ml used. Intravenous contrast was used to enhance endocardial border definition. Conclusions The study is technically limited. Mild to moderate concentric left ventricular hypertrophy is observed. The left ventricle appears hyperdynamic.grossly normal wall motion. The estimated ejection fraction is 60-65%. Abnormal left ventricular diastolic function is observed. The right ventricular global systolic function is low normal. All valves show grossly normal function. There is a trace of mitral regurgitation. There is trace tricuspid regurgitation. Compared with prior echo of 01/17/17, prior EF 55-60%, RV low normal replaces normal, valve function is stable. Measurements Name Value Normal Range RVIDd (AP) 2D 2.7 cm (0.9 - 2.6) IVSd (2D) 1.2 cm (0.6 - 1) LVPWd (2D) 1.4 cm (0.6 - 1) LVIDd (2D) 4.4 cm (3.6 - 5.4) LVIDs (2D) 3.2 cm - LV FS (2D) 27 % (25 - 45) Aortic Annulus 1.9 cm (1.4 - 2.6) Ao root diameter (2D) 3 cm (2.1 - 3.5) Ascending Ao 3.2 cm (2.1 - 3.4) Aortic arch 2.7 cm (1.8 - 3.4) Descending Ao 0.7 cm - LA dimension (AP) 2D 4.2 cm (2.3 - 3.8) Name Value Normal Range MV E-wave Vmax 1.1 m/sec - MV deceleration time 210 msec - MV A-wave Vmax 1 m/sec - MV E:A ratio 1.1 ratio - LV septal e' Vmax 0.09 m/sec - LV lateral e' Vmax 0.08 m/sec - LV E:e' septal ratio 12.22 ratio - LV E:e' lateral ratio 13.75 ratio - Name Value Normal Range AV Vmax 1.3 m/sec - AV VTI 33.6 cm - AV peak gradient 7.19 mmHg - AV mean gradient 4.34 mmHg - LVOT Vmax 1 m/sec - LVOT VTI 24.4 cm - LVOT peak gradient 3.84 mmHg - LVOT mean gradient 2.14 mmHg -
--- NOTE | 2018-06-20 14:58 | CONSULT ---
Consult Consult: Orthopedic Consultation: Date of service: 06/20/18 CC: Soiled cast of right lower extremity HPI: Patient is a 52 year old male with a history of bilateral transmetarsal amputation with an ulcer of the plantar aspect of the right foot. He was seen in our office yesterday 06/19 and a cast placed on the right lower extremity. Our office placed a betadyne soaked gauze over the ulcer and a short leg cast. From our office he was sent to the emergency room at [facility] due to O2 saturation of 86% along with a 40 pound weight gain in the past two weeks and subsequently admitted. Today I was asked to see the patient due to a soiled cast on the right lower extremity. Patient states the toilet in his room overflowed and a large amount of water flooded the floor as well as down the back of his cast, feeling as though it is wet all the way down to the foot. He denies any foot pain, fever or chills. PMHx: includes heart failure, diabetes, hypertension Allergies: sulfamethoxazole Surgical hx: bilateral transmetatarsal amputation ROS: General: No fever or chills Cardio: Denies chest pain Resp: Denies shortness of breath GI: Denies nausea MSK: Denies RLE pain. Confirms a wet cast Physical Exam: General: Well appearing, NAD MSK: RLE cast wet at least proximally, while intact unable to easily determine to what extent padding was wet. Cast removed, posterior aspect wet to midcalf. Plantar aspect of foot with roughly 4 cm shallow ulceration with granulation tissue and no purulence. No surrounding erythema or edema. New betadyne soaked gauze placed over ulcer and short leg cast placed. Assessment: ulcer of right foot with soiled short leg cast Plan: Cast to remain CDI. Please contact orthopedics with any further concerns.
[2018-06-20] MEDS ORDERED: Epoetin Alfa* 10,000 UNITS/ML VIAL SUBCUT ONE (17:44)
[2018-06-20] MEDS ORDERED: Furosemide IV* 10 MG/ML 10 ML VIAL (100 MG) IV ONE (17:46)
--- NOTE | 2018-06-20 18:16 | PN ---
Subjective Date of Service: 06/20/18 Interval History: Patient seen and examined. Complaint of fatigue, worse than at admission. Remains on oxygen. Had low blood sugars last night and this AM. Denies chest pain, no acute SOB. He states he is urinating a lot. No fevers or chills. Objective Active Medications: Acetaminophen (Tylenol Tab*) 650 mg PO Q4H PRN PRN Reason: FEVER/PAIN Atorvastatin Calcium (Lipitor*) 10 mg PO DAILY [facility] Last Admin: 06/20/18 08:24 Dose: 10 mg Calcitriol (Rocaltrol Cap*) 0.5 mcg PO DAILY [facility] Last Admin: 06/20/18 08:38 Dose: 0.5 mcg Calcium Acetate (Phoslo Cap*) 667 mg PO AC [facility] Last Admin: 06/20/18 17:12 Dose: 667 mg Citric Acid/Sodium Citrate (Bicitra*) 15 ml PO TID [facility] Last Admin: 06/20/18 13:55 Dose: 15 ml Dextrose (D50w Syringe 50 Ml*) 12.5 gm IV PUSH .FOR FS < 60 - SS PRN PRN Reason: FS < 60 Famotidine (Pepcid Tab*) 20 mg PO DAILY [facility]; Protocol Last Admin: 06/20/18 08:27 Dose: 20 mg Fluticasone/Vilanterol (Breo Ellipta Mdi 100/25(Nf)) 1 puff INH DAILY [facility] Last Admin: 06/20/18 07:54 Dose: Not Given Furosemide (Lasix Iv*) 60 mg IV 0800,1700 [facility] Gabapentin (Neurontin Cap(*)) 300 mg PO TID [facility] Last Admin: 06/20/18 13:55 Dose: 300 mg Heparin Sodium (Porcine) (Heparin Vial(*)) 5,000 units SUBCUT Q8HR [facility] Last Admin: 06/20/18 13:56 Dose: 5,000 units Insulin Glargine (Lantus(*)) 30 units SUBCUT DAILY@0900 [facility] Last Admin: 06/20/18 08:21 Dose: 30 units Insulin Human Lispro (Humalog*) 0 units SUBCUT [facility]; Protocol Last Admin: 06/20/18 17:11 Dose: 3 unit Melatonin (Melatonin) 3 mg PO BEDTIME PRN PRN Reason: SLEEP Metolazone (Zaroxolyn Tab*) 5 mg PO DAILY@0730 [facility] Metoprolol Tartrate (Lopressor Tab*) 12.5 mg PO Q12HR [facility] Last Admin: 06/20/18 08:25 Dose: 12.5 mg Nifedipine (Procardia Xl Tab*) 60 mg PO DAILY [facility] Last Admin: 06/20/18 08:37 Dose: 60 mg Sertraline HCl (Zoloft*) 50 mg PO DAILY [facility] Last Admin: 06/20/18 08:24 Dose: 50 mg Vital Signs - 8 hr 06/20/18 06/20/18 06/20/18 10:55 12:00 13:55 Temperature 98.7 F Pulse Rate 63 Respiratory 18 18 20 Rate Blood Pressure 122/61 (mmHg) O2 Sat by Pulse 93 Oximetry 06/20/18 06/20/18 15:43 17:13 Temperature 98.2 F Pulse Rate 61 Respiratory 20 18 Rate Blood Pressure 116/98 (mmHg) O2 Sat by Pulse 96 Oximetry Oxygen Devices in Use Now: Nasal Cannula Appearance: Alert, pale, tired Eyes: PERRLA Ears/Nose/Mouth/Throat: Mucous Membranes Moist, - - dentures Neck: NL Appearance and Movements; NL JVP, Trachea Midline Respiratory: Symmetrical Chest Expansion and Respiratory Effort, - - diminished throughout, auscultation difficult 2/2 body habitus Cardiovascular: NL Sounds; No Murmurs; No JVD, RRR Abdominal: NL Sounds; No Tenderness; No Distention, - - obese Extremities: No Clubbing, Cyanosis - right cast intact, left transmet amp/stump CDI Skin: No Rash or Ulcers Neurological: Alert and Oriented x 3 Nutrition: Taking PO's Result Diagrams: 06/20/18 05:24 06/20/18 05:24 Microbiology and Other Data: Microbiology 06/19/18 13:03 Aerobic Blood Culture - Preliminary Blood Venous No Growth Day 1 Anaerobic Blood Culture - Preliminary No Growth Day 1 06/19/18 12:40 Aerobic Blood Culture - Preliminary Blood Venous No Growth Day 1 Anaerobic Blood Culture - Preliminary No Growth Day 1 Diagnostic Imaging: Patient Name: AMMON HERNANDEZ Medical Record#: [id number] Ordering Physician: Ronald Jose MD Acct.#: [id number] : 1965 Age: 52 Sex: M Location: EMERGENCY DEPARTMENT Exam Date: 06/19/18 1219 ADM Status: REG ER Order Information: CHEST AP PORTABLE Accession Number: [id number] CPT: 37871 Indication: Shortness of breath. Single frontal view of the chest performed at 1300 hours was reviewed. Comparison is made with previous exam dated May 25, 2018. Cardiomegaly is noted. Interstitial edema consistent with CHF is noted. No alveolar consolidation is noted. IMPRESSION: CARDIOMEGALY WITH INTERSTITIAL EDEMA CONSISTENT WITH CHF. <Electronically signed by June Lafleur MD in OV> 06/19/18 1310 Dictated By: June Lafleur MD Dictated Date/Time: 06/19/18 1310 Transcribed Date/Time: 06/19/18 1309 Copy to: Assess/Plan/Problems-Billing Assessment: This is a 52-year-old male patient, who presents after several admissions over the past couple of weeks with acute shortness of breath and fluid overload, now admitted for fluid overload, likely will need dialysis in the near future. - Patient Problems (1) Metabolic acidosis Code(s): E87.2 - ACIDOSIS SNOMED Code(s): 05406178 Comment: - ABG as above with repeat with not much improvement - Started bicitra per Dr. James ADAMS - Appreicate any further recs from nephro (2) CKD (chronic kidney disease) Code(s): N18.9 - CHRONIC KIDNEY DISEASE, UNSPECIFIED SNOMED Code(s): 975745382 Comment: - With extreme fluid overload 2/2 to stopping outpatient diuretics - Creatinine increasing, over 5 now - Nephrology following - Continue 120mg lasix daily with 5mg metolazone - Patient needs to achieve 20lbs fluid loss as per nephro - Weight down 5lbs today - Wean O2 as tolerated (3) Wound of right foot Code(s): S91.301A - UNSPECIFIED OPEN WOUND, RIGHT FOOT, INITIAL ENCOUNTER SNOMED Code(s): 558579460 Comment: - Cast replaced today - Ortho and wound care following - Will need crutches to offload - Wound not currently infected (4) Chronic diastolic (congestive) heart failure Code(s): I50.32 - CHRONIC DIASTOLIC (CONGESTIVE) HEART FAILURE SNOMED Code(s) : 028180688 Comment: - EF improved on this ECHO to 60-65% - Fluid overload is 2/2 renal dysfunction - continue to monitor on tele - Supoortive care (5) COPD (chronic obstructive pulmonary disease) Code(s): J44.9 - CHRONIC OBSTRUCTIVE PULMONARY DISEASE, UNSPECIFIED SNOMED Code(s): 80518858 Comment: - Not in exacerbation - Continue inhalers and supportive care - BG ACHS (6) Diabetes Code(s): E11.9 - TYPE 2 DIABETES MELLITUS WITHOUT COMPLICATIONS SNOMED Code(s) : 29567365 Comment: - With hypoglycemia - Adjust insulin, reduce lantus and keep SS only (7) Hyperkalemia Code(s): E87.5 - HYPERKALEMIA SNOMED Code(s): 96519974 Comment: - In the setting of renal failure - will give kayexelate 1 dose 2 hours after last dose of bicitra - Monitor lytes - Avoid IRMA (8) Hypertension Code(s): I10 - ESSENTIAL (PRIMARY) HYPERTENSION SNOMED Code(s): 87529221 Comment: - Continue nifedepine, may need meds adjusted before DC (9) Morbid obesity Code(s): E66.01 - MORBID (SEVERE) OBESITY DUE TO EXCESS CALORIES SNOMED Code(s ): 542016007 Comment: - BMI >48, much of this increase is fluid but patient is counseled on weight loss (10) Status post transmetatarsal amputation of left foot Code(s): Z89.432 - ACQUIRED ABSENCE OF LEFT FOOT SNOMED Code(s): 814326265 Comment: - Bilateral amputations - Ortho following Status and Disposition: Remain inpatient for critical diuresis and correction of acidemia.
[2018-06-20] MEDS: Metolazone TAB* 5 MG PO SCH (18:34)
--- NOTE | 2018-06-20 19:48 | CONS ---
CC: Dr. Morrison at [place] * NEPHROLOGY CONSULTATION: DATE OF CONSULT: 06/20/18 HISTORY OF PRESENT ILLNESS: Mr. Galo is a 52-year-old gentleman with a history of diabetes mellitus type 2 since the late . It has been complicated by retinopathy and neuropathy and diabetic gastroparesis. Approximately a month ago, he had furosemide stopped because he was told that it was not good for his kidney function. Since then, he has put on 30 to 40 pounds. He has developed some orthopnea, worsening of edema. He became short of breath at home. He presented to Dr. Galarza's office where he was noted to have an O2 saturation of 86% and he was sent over for admission. PAST MEDICAL HISTORY: His previous medical history is significant for congestive heart failure. He has a history of hypertension. He is status post bilateral transmetatarsal amputations for nonhealing chronic foot ulcers. He has had a history of osteomyelitis. He has chronic anemia. He has had a history of hyperkalemia. MEDICATIONS: His medications at the time of admission included: 1. PhosLo 667 mg with meals. 2. Calcitriol 0.5 mcg daily. 3. Acetaminophen 650 mg every 4 hours p.r.n. 4. Sertraline 50 mg daily. 5. Nifedipine 60 mg daily. 6. Metoprolol 12.5 mg daily. 7. Floranex 2 tablets daily. 8. Regular insulin 10 units subcutaneous 3 times a day. 9. Glargine 55 units subcutaneously every morning. 10. Gabapentin 300 mg 3 times a day. 11. Fluticasone 1 spray daily. 12. Simvastatin 20 mg daily. 13. Zantac 150 mg b.i.d. ALLERGIES: He is allergic to BACTRIM. He has some other environmental and food allergies. FAMILY HISTORY: Significant that his father and his grandmother had diabetes mellitus. SOCIAL HISTORY: He uses alcohol infrequently. He quit smoking in 2009. REVIEW OF SYSTEMS: No swallowing difficulties. No heat or cold intolerance. No chest pain. No nausea, no vomiting, but some early satiety. No dysuria, frequency, or urgency. PHYSICAL EXAM: He is an obese, white gentleman, who appears to be quite comfortable and tells me he is feeling much better than when he presented to the hospital. His blood pressure is 122/61 with a respiratory rate of 18, pulse of 63, he is afebrile, O2 saturation is 93%. On HEENT, he is normocephalic. Pupils are reactive to light. He is anicteric. His extraocular muscles are intact. Mucous membranes are moist. I cannot see his neck veins as his neck is quite thick. The heart revealed a regular rhythm. I could not hear any murmurs. The respiratory evaluation revealed very distant breath sounds. The abdomen is obese, nontender. I could not feel a liver margin. Bones, Joints, Extremities: He had 2+ edema up into his thighs. He had casts on both legs. Neurologic: He is alert, oriented, and cooperative. Moves all 4 extremities. DIAGNOSTIC STUDIES/LAB DATA: Review of his laboratory studies reveals a white count of 3.9, hemoglobin of 7.7, hematocrit of 24, platelet count of 151,000. Of significance, he has had some evidence of anemia since October of 2015. Sodium of 141, potassium of 5.3, chloride 116, total CO2 of 19, BUN 70, creatinine of 5.17. His EGFR is 11.9, but I think because of his size that this significantly underestimates his true function. We would not really know where he levels out until he comes into steady state. Calcium of 8.4, phosphorus of 6.3. He had a known erythropoietin level of 18 at the time when his hematocrit was 22. This is an inadequate erythropoietin response; therefore, he has the anemia of chronic renal disease. IMPRESSION: 1. Chronic renal insufficiency. My guess is he has probably stage 4 disease, but we have to wait until we measure that. 2. Volume overload. 3. Diabetes mellitus type 2 complicated by retinopathy, neuropathy, and gastroparesis as well as nephropathy. 4. History of bilateral transmetatarsal amputations of his feet. 5. Hypertension. PLAN: At the present time, I would probably go ahead and start treating him with erythropoietin. Usually, in the hospital, we use Epogen and use Aranesp as an outpatient. I leave this to the pharmacy's discretion. If we can get him Aranesp, we will have a more prolonged duration of action, and I think a person his size, dose of 100 mcg is probably an order. He probably will need to have his iron levels measured on a regular basis. I would continue to diurese him with metolazone and Lasix at a dose of 5 mg and 120 mg intravenously respectively. As soon as he takes off about another 20 pounds, I think he would be ready for discharge and outpatient management. [id number]/[facility] #: [id number] [facility]
[2018-06-21] MEDS: Heparin VIAL(*) 5000 UNITS/ML VIAL (FIVE THOUSAND) SUBCUT SCH ×3 (07:30→21:24)
[2018-06-21 07:49] LABS: ABS Basophils 0 10^3/ul (0-0.2); ABS Eosinophils 0.3 10^3/ul (0-0.6); ABS Lymphocytes 0.8 10^3/ul (1.0-4.8); ABS Monocytes 0.5 10^3/ul (0-0.8); ABS Neutrophils 2.3 10^3/ul (1.5-7.7); ABS Nucleated RBC 0 10^3/ul; Eosinophil % 7.6 % (0-6); Hematocrit 25 % (42-52); Lymphocyte % 21.4 % (25-47); Mean Corpuscular HGB Conc 32 g/dl (31-36); Mean Corpuscular Hemoglobin 28 pg (27-31); Mean Corpuscular Volume 90 fL (80-94); Mean Platelet Volume 8.3 um3 (7.4-10.4); Nucleated Red Blood Cells % 0.1; Platelet Count 165 10^3/ul (150-450); Red Blood Count 2.83 10^6/ul (4.00-5.40); Red Cell Distribution Width 18 % (10.5-15)
[2018-06-21] MEDS: Fluticasone/Vilanterol MDI(NF) 100/25 MDI INH SCH (08:00)
[2018-06-21 08:11] LABS: EGFR Non-African American 11.9 (>60)
[2018-06-21] MEDS: Sodium Citrate/Citric Acid* 15 ML UDC PO SCH ×3 (08:24→21:20)
[2018-06-21] MEDS: Insulin GLARGINE(*) 1 UNITS UNIT SUBCUT SCH (08:25)
[2018-06-21] MEDS: Insulin LISPRO* 1 UNITS UNIT SUBCUT SCH ×3 (08:25→17:31)
[2018-06-21] MEDS: Gabapentin CAP(*) 300 MG PO SCH ×3 (08:26→21:20)
[2018-06-21] MEDS: Atorvastatin* 10 MG TAB PO SCH (08:26)
[2018-06-21] MEDS: Calcium Acetate CAP* 667 MG PO SCH ×3 (08:26→17:31)
[2018-06-21] MEDS: Metolazone TAB* 5 MG PO SCH (08:26)
[2018-06-21] MEDS: Famotidine TAB* 20 MG PO SCH (08:27)
[2018-06-21] MEDS: Metoprolol Tartrate TAB* 25 MG PO SCH ×2 (08:27→21:21)
[2018-06-21] MEDS: Calcitriol CAP* 0.25 MCG PO SCH (08:28)
[2018-06-21] MEDS: Sertraline* 50 MG TAB PO SCH (08:28)
[2018-06-21] MEDS: NIFEdipine ER TAB* 60 MG PO SCH (08:28)
[2018-06-21] MEDS: Furosemide IV* 10 MG/ML 10 ML VIAL (100 MG) IV SCH ×2 (08:32→17:31)
[2018-06-21] MEDS ORDERED: Sodium Polystyrene ORAL.SOL* 15 GM/60 ML BTL PO ONE (10:27)
--- NOTE | 2018-06-21 17:43 | PN ---
Subjective Date of Service: 06/21/18 Interval History: Patient seen and examined. Feeling better, states he feels less bloated and less SOB. States the kayexelate gave him diarrhea and does not want to take it anymore. Ambulating well, denies chest pain, no further complaints. Objective Active Medications: Acetaminophen (Tylenol Tab*) 650 mg PO Q4H PRN PRN Reason: FEVER/PAIN Atorvastatin Calcium (Lipitor*) 10 mg PO DAILY [facility] Last Admin: 06/21/18 08:26 Dose: 10 mg Calcitriol (Rocaltrol Cap*) 0.5 mcg PO DAILY [facility] Last Admin: 06/21/18 08:28 Dose: 0.5 mcg Calcium Acetate (Phoslo Cap*) 667 mg PO AC [facility] Last Admin: 06/21/18 17:31 Dose: 667 mg Citric Acid/Sodium Citrate (Bicitra*) 15 ml PO TID [facility] Last Admin: 06/21/18 14:00 Dose: 15 ml Dextrose (D50w Syringe 50 Ml*) 12.5 gm IV PUSH .FOR FS < 60 - SS PRN PRN Reason: FS < 60 Famotidine (Pepcid Tab*) 20 mg PO DAILY [facility]; Protocol Last Admin: 06/21/18 08:27 Dose: 20 mg Fluticasone/Vilanterol (Breo Ellipta Mdi 100/25(Nf)) 1 puff INH DAILY [facility] Last Admin: 06/21/18 08:00 Dose: Not Given Furosemide (Lasix Iv*) 60 mg IV 0800,1700 [facility] Last Admin: 06/21/18 17:31 Dose: 60 mg Gabapentin (Neurontin Cap(*)) 300 mg PO TID [facility] Last Admin: 06/21/18 14:00 Dose: 300 mg Heparin Sodium (Porcine) (Heparin Vial(*)) 5,000 units SUBCUT Q8HR [facility] Last Admin: 06/21/18 14:00 Dose: 5,000 units Insulin Glargine (Lantus(*)) 45 units SUBCUT DAILY@0900 [facility] Insulin Human Lispro (Humalog*) 0 units SUBCUT [facility]; Protocol Last Admin: 06/21/18 17:31 Dose: 3 units Melatonin (Melatonin) 3 mg PO BEDTIME PRN PRN Reason: SLEEP Metolazone (Zaroxolyn Tab*) 5 mg PO DAILY@0730 [facility] Last Admin: 06/21/18 08:26 Dose: 5 mg Metoprolol Tartrate (Lopressor Tab*) 12.5 mg PO Q12HR [facility] Last Admin: 06/21/18 08:27 Dose: 12.5 mg Nifedipine (Procardia Xl Tab*) 60 mg PO DAILY [facility] Last Admin: 06/21/18 08:28 Dose: 60 mg Sertraline HCl (Zoloft*) 50 mg PO DAILY [facility] Last Admin: 06/21/18 08:28 Dose: 50 mg Vital Signs - 8 hr 06/21/18 06/21/18 06/21/18 10:32 11:48 12:31 Temperature 97.9 F 97.9 F Pulse Rate 63 64 Respiratory 16 18 20 Rate Blood Pressure 145/76 108/69 (mmHg) O2 Sat by Pulse 96 92 Oximetry 06/21/18 06/21/18 06/21/18 14:00 15:58 16:07 Temperature 98.2 F Pulse Rate 61 Respiratory 20 16 16 Rate Blood Pressure 149/70 (mmHg) O2 Sat by Pulse 97 Oximetry Oxygen Devices in Use Now: Nasal Cannula Appearance: alert, pale, NAD Eyes: No Scleral Icterus, PERRLA Ears/Nose/Mouth/Throat: NL Teeth, Lips, Gums, Mucous Membranes Moist Neck: NL Appearance and Movements; NL JVP Respiratory: Symmetrical Chest Expansion and Respiratory Effort, - - improved air entry, clear at apices diminished bases, no rales or wheeze Cardiovascular: NL Sounds; No Murmurs; No JVD, RRR, No Edema Abdominal: NL Sounds; No Tenderness; No Distention, - - obese Extremities: No Edema, - - right LE cast CDI Skin: - - wound plantar side right foot, casted Neurological: Alert and Oriented x 3, NL Sensation Nutrition: Taking PO's Result Diagrams: 06/21/18 06:28 06/21/18 06:28 Microbiology and Other Data: Microbiology 06/19/18 13:03 Aerobic Blood Culture - Preliminary Blood Venous No Growth Day 1 Anaerobic Blood Culture - Preliminary No Growth Day 1 06/19/18 12:40 Aerobic Blood Culture - Preliminary Blood Venous No Growth Day 1 Anaerobic Blood Culture - Preliminary No Growth Day 1 Diagnostic Imaging: Patient Name: AMMON HERNANDEZ Medical Record#: [id number] Ordering Physician: Ronald Jose MD Acct.#: [id number] : 1965 Age: 52 Sex: M Location: EMERGENCY DEPARTMENT Exam Date: 06/19/18 1219 ADM Status: REG ER Order Information: CHEST AP PORTABLE Accession Number: [id number] CPT: 78231 Indication: Shortness of breath. Single frontal view of the chest performed at 1300 hours was reviewed. Comparison is made with previous exam dated May 25, 2018. Cardiomegaly is noted. Interstitial edema consistent with CHF is noted. No alveolar consolidation is noted. IMPRESSION: CARDIOMEGALY WITH INTERSTITIAL EDEMA CONSISTENT WITH CHF. <Electronically signed by June Lafleur MD in [place]> 06/19/18 1310 Dictated By: June Lafleur MD Dictated Date/Time: 06/19/18 1310 Transcribed Date/Time: 06/19/18 1309 Copy to: Assess/Plan/Problems-Billing Assessment: This is a 52-year-old male patient, who presents after several admissions over the past couple of weeks with acute shortness of breath and fluid overload, now admitted for fluid overload, likely will need dialysis in the near future. - Patient Problems (1) Metabolic acidosis Code(s): E87.2 - ACIDOSIS SNOMED Code(s): 18610227 Comment: - Breathing improved, less lethargy - Continue bicitra per Dr. James ADAMS - Appreicate any further recs from nephro (2) CKD (chronic kidney disease) Code(s): N18.9 - CHRONIC KIDNEY DISEASE, UNSPECIFIED SNOMED Code(s): 744447169 Comment: - With extreme fluid overload 2/2 to stopping outpatient diuretics - Continue lasix 60mg BID and metolazone 5mg daily until euvolemic - Clinical improving today - Creatinine remains >5 - Nephrology following - Continue 120mg lasix daily with 5mg metolazone - Patient needs to achieve 20lbs fluid loss as per nephro - Weight back up 5 pounds today but patient is starting to feel better - Continue to wean O2 as tolerated (3) Wound of right foot Code(s): S91.301A - UNSPECIFIED OPEN WOUND, RIGHT FOOT, INITIAL ENCOUNTER SNOMED Code(s): 863930971 Comment: - Cast replaced 06/20 - Ortho and wound care following - Will need crutches to offload - Wound not currently infected (4) Chronic diastolic (congestive) heart failure Code(s): I50.32 - CHRONIC DIASTOLIC (CONGESTIVE) HEART FAILURE SNOMED Code(s) : 801735232 Comment: - EF improved on this ECHO to 60-65% - Fluid overload is 2/2 renal dysfunction - continue to monitor on tele and diurese - Stable, continue supoortive care (5) COPD (chronic obstructive pulmonary disease) Code(s): J44.9 - CHRONIC OBSTRUCTIVE PULMONARY DISEASE, UNSPECIFIED SNOMED Code(s): 34118454 Comment: - Not in exacerbation - Continue inhalers and supportive care - BG ACHS (6) Diabetes Code(s): E11.9 - TYPE 2 DIABETES MELLITUS WITHOUT COMPLICATIONS SNOMED Code(s) : 29204696 Comment: - Hypoglycemia resolving - Increase lantus up to 45 units and continue to monitor closely with lispro SS as needed - Counseled on diet (7) Hyperkalemia Code(s): E87.5 - HYPERKALEMIA SNOMED Code(s): 54875046 Comment: - In the setting of renal failure - K still at 5.2 after kayexelate, however patient will likely not take more given his multiple BMs - Monitor lytes - Avoid IRMA - Tele with no changes (8) Hypertension Code(s): I10 - ESSENTIAL (PRIMARY) HYPERTENSION SNOMED Code(s): 36002744 Comment: - Continue nifedepine, may need meds adjusted before DC, BP currently stable (9) Morbid obesity Code(s): E66.01 - MORBID (SEVERE) OBESITY DUE TO EXCESS CALORIES SNOMED Code(s ): 749913348 Comment: - BMI >48, much of this increase is fluid but patient was counseled on weight loss and had nutrition consult (10) Status post transmetatarsal amputation of left foot Code(s): Z89.432 - ACQUIRED ABSENCE OF LEFT FOOT SNOMED Code(s): 771246231 Comment: - Bilateral amputations - Ortho following Status and Disposition: Remain inpatient for critical diuresis and correction of acidemia.
[2018-06-21] MEDS: Acetaminophen TAB* 325 MG PO PRN (22:31)
[2018-06-21] MEDS ORDERED: diPHENhydraMINE PO* 25 MG PO PRN (23:55)
[2018-06-22] MEDS: Heparin VIAL(*) 5000 UNITS/ML VIAL (FIVE THOUSAND) SUBCUT SCH ×3 (05:35→21:41)
[2018-06-22 06:33] LABS: ABS Basophils 0 10^3/ul (0-0.2); ABS Eosinophils 0.3 10^3/ul (0-0.6); ABS Monocytes 0.5 10^3/ul (0-0.8); ABS Neutrophils 2.3 10^3/ul (1.5-7.7); ABS Nucleated RBC 0 10^3/ul; Eosinophil % 7.7 % (0-6); Hematocrit 25 % (42-52); Hemoglobin 7.8 g/dl (14.0-18.0); Lymphocyte % 23.8 % (25-47); Mean Corpuscular HGB Conc 31 g/dl (31-36); Mean Corpuscular Hemoglobin 28 pg (27-31); Mean Corpuscular Volume 88 fL (80-94); Mean Platelet Volume 8.5 um3 (7.4-10.4); Nucleated Red Blood Cells % 0.1; Platelet Count 140 10^3/ul (150-450); Red Blood Count 2.84 10^6/ul (4.00-5.40); Red Cell Distribution Width 18 % (10.5-15); White Blood Count 4.2 10^3/ul (3.5-10.8)
[2018-06-22 06:50] LABS: EGFR Non-African American 12.2 (>60)
[2018-06-22] MEDS: Fluticasone/Vilanterol MDI(NF) 100/25 MDI INH SCH (07:25)
[2018-06-22] MEDS: Sodium Citrate/Citric Acid* 15 ML UDC PO SCH ×3 (08:40→21:37)
[2018-06-22] MEDS: Insulin LISPRO* 1 UNITS UNIT SUBCUT SCH ×3 (08:40→17:10)
[2018-06-22] MEDS: Insulin GLARGINE(*) 1 UNITS UNIT SUBCUT SCH (08:40)
[2018-06-22] MEDS: Sertraline* 50 MG TAB PO SCH (08:41)
[2018-06-22] MEDS: Metolazone TAB* 5 MG PO SCH (08:41)
[2018-06-22] MEDS: Calcitriol CAP* 0.25 MCG PO SCH (08:41)
[2018-06-22] MEDS: Famotidine TAB* 20 MG PO SCH (08:41)
[2018-06-22] MEDS: Atorvastatin* 10 MG TAB PO SCH (08:41)
[2018-06-22] MEDS: Calcium Acetate CAP* 667 MG PO SCH ×3 (08:41→17:11)
[2018-06-22] MEDS: Gabapentin CAP(*) 300 MG PO SCH ×3 (09:36→21:38)
[2018-06-22] MEDS: Furosemide IV* 10 MG/ML 10 ML VIAL (100 MG) IV SCH ×2 (09:42→17:10)
[2018-06-22] MEDS: Metoprolol Tartrate TAB* 25 MG PO SCH ×2 (09:43→21:39)
[2018-06-22] MEDS: NIFEdipine ER TAB* 60 MG PO SCH (09:43)
--- NOTE | 2018-06-22 11:16 | PN ---
Subjective Date of Service: 06/22/18 Interval History: Mr. Galo reports feeling better today overall though he continues to feel edematous in his legs and distended in his abdomen. He denies chest pain, SOB, nausea, or abdominal pain. Objective Active Medications: Acetaminophen (Tylenol Tab*) 650 mg PO Q4H PRN Atorvastatin Calcium (Lipitor*) 10 mg PO DAILY [facility] Calcitriol (Rocaltrol Cap*) 0.5 mcg PO DAILY [facility] Calcium Acetate (Phoslo Cap*) 667 mg PO AC [facility] Citric Acid/Sodium Citrate (Bicitra*) 15 ml PO TID [facility] Dextrose (D50w Syringe 50 Ml*) 12.5 gm IV PUSH .FOR FS < 60 - SS PRN Diphenhydramine HCl (Benadryl Po*) 25 mg PO Q6H PRN Famotidine (Pepcid Tab*) 20 mg PO DAILY [facility]; Protocol Fluticasone/Vilanterol (Breo Ellipta Mdi 100/25(Nf)) 1 puff INH DAILY [facility] Furosemide (Lasix Iv*) 60 mg IV 0800,1700 [facility] Gabapentin (Neurontin Cap(*)) 300 mg PO TID [facility] Heparin Sodium (Porcine) (Heparin Vial(*)) 5,000 units SUBCUT Q8HR [facility] Insulin Glargine (Lantus(*)) 45 units SUBCUT DAILY@0900 [facility] Insulin Human Lispro (Humalog*) 0 units SUBCUT AC [facility]; Protocol Melatonin (Melatonin) 3 mg PO BEDTIME PRN Metolazone (Zaroxolyn Tab*) 5 mg PO DAILY@0730 [facility] Metoprolol Tartrate (Lopressor Tab*) 12.5 mg PO Q12HR [facility] Nifedipine (Procardia Xl Tab*) 60 mg PO DAILY [facility] Sertraline HCl (Zoloft*) 50 mg PO DAILY [facility] Vital Signs: Temp Pulse Resp BP Pulse Ox 97.5 F 55 12 144/74 100 06/22/18 07:45 06/22/18 07:45 06/22/18 09:36 06/22/18 07:45 06/22/18 07:45 Oxygen Devices in Use Now: Nasal Cannula Appearance: Male lying in bed in NAD Eyes: No Scleral Icterus Ears/Nose/Mouth/Throat: Mucous Membranes Moist Respiratory: Symmetrical Chest Expansion and Respiratory Effort, Clear to Auscultation Cardiovascular: NL Sounds; No Murmurs; No JVD, - - +2 pitting edema up into thighs bilaterally Abdominal: - - Distended, soft, non-tender Lymphatic: No Cervical Adenopathy Skin: No Rash or Ulcers Neurological: Alert and Oriented x 3, NL Muscle Strength and Tone Result Diagrams: 06/22/18 05:23 06/22/18 05:23 Microbiology and Other Data: . Diagnostic Imaging: . Assess/Plan/Problems-Billing Assessment: Mr. Galo is a 52-year-old male patient with CKD stage V who presents after several admissions over the past couple of weeks with acute shortness of breath and fluid overload, now admitted for fluid overload, likely will need dialysis in the near future. - Patient Problems (1) CKD (chronic kidney disease) Comment: - Continues to improve. - With extreme fluid overload 2/2 to stopping outpatient diuretics - Continue lasix 60mg BID and metolazone 5mg daily until euvolemic - Creatinine remains >5 - Nephrology following - Continue to wean O2 as tolerated (2) Chronic diastolic (congestive) heart failure Comment: - EF improved on this ECHO to 60-65% - Fluid overload is 2/2 renal dysfunction - Continue to monitor on tele and diurese - Stable, continue supoortive care (3) Metabolic acidosis Comment: - Breathing improved, less lethargy - Continue bicitra per Dr. James ADAMS - Appreciate any further recs from nephro (4) Hyperkalemia Comment: - Resolved. - In the setting of renal failure (5) Wound of right foot Comment: - Cast replaced 06/20 - Ortho and wound care following - Will need crutches to offload - Wound not currently infected (6) Anemia of chronic disease Comment: -Relatively stable -No symptoms/signs of bleeding (7) COPD (chronic obstructive pulmonary disease) Comment: - Not in exacerbation - Continue inhalers and supportive care (8) Diabetes Comment: - Hypoglycemia resolved - Continue lantus 45 units and continue to monitor closely with lispro SS as needed - Counseled on diet (9) Hypertension Comment: - Continue nifedepine, may need meds adjusted before DC, BP currently stable (10) DVT prophylaxis Comment: - HSQ (11) Full code status Comment: Status and Disposition: Remain inpatient for critical diuresis and correction of acidemia.
[2018-06-22] MEDS ORDERED: hydrALAZINE IV* 20 MG/ML VIAL IV SLOW PU PRN (11:54)
[2018-06-22] MEDS: Acetaminophen TAB* 325 MG PO PRN (13:16)
[2018-06-22] MEDS: Mometasone/Formoter 100/5 MDI INH SCH (20:17)
[2018-06-23] MEDS: Heparin VIAL(*) 5000 UNITS/ML VIAL (FIVE THOUSAND) SUBCUT SCH (05:09)
--- NOTE | 2018-06-23 07:39 | PN ---
Subjective Date of Service: 06/23/18 Interval History: Mr. Galo reports feeling well today and is eager for discharge to home. He continues to need O2 but reports that his breathing is much better and his abdominal distention is markedly reduced. He does have oxygen at home. He is tolerating oral intake well without nausea or abdominal pain. Objective Active Medications: Acetaminophen (Tylenol Tab*) 650 mg PO Q4H PRN Atorvastatin Calcium (Lipitor*) 10 mg PO DAILY [facility] Calcitriol (Rocaltrol Cap*) 0.5 mcg PO DAILY [facility] Calcium Acetate (Phoslo Cap*) 667 mg PO AC [facility] Citric Acid/Sodium Citrate (Bicitra*) 15 ml PO TID [facility] Dextrose (D50w Syringe 50 Ml*) 12.5 gm IV PUSH .FOR FS < 60 - SS PRN Diphenhydramine HCl (Benadryl Po*) 25 mg PO Q6H PRN Famotidine (Pepcid Tab*) 20 mg PO DAILY [facility]; Protocol Furosemide (Lasix Iv*) 60 mg IV 0800,1700 [facility] Gabapentin (Neurontin Cap(*)) 300 mg PO TID [facility] Heparin Sodium (Porcine) (Heparin Vial(*)) 5,000 units SUBCUT Q8HR [facility] Hydralazine HCl (Apresoline Iv*) 5 mg IV SLOW PU Q6H PRN Insulin Glargine (Lantus(*)) 45 units SUBCUT DAILY@0900 [facility] Insulin Human Lispro (Humalog*) 0 units SUBCUT AC [facility]; Protocol Melatonin (Melatonin) 3 mg PO BEDTIME PRN Metolazone (Zaroxolyn Tab*) 5 mg PO DAILY@0730 [facility] Metoprolol Tartrate (Lopressor Tab*) 12.5 mg PO Q12HR [facility] Mometasone Furoate/Formoterol Fumar (Dulera 100/5 Mdi*) 2 puff INH BID [facility] Nifedipine (Procardia Xl Tab*) 60 mg PO DAILY [facility] Sertraline HCl (Zoloft*) 50 mg PO DAILY [facility] Vital Signs: Temp Pulse Resp BP Pulse Ox 98.4 F 66 20 158/79 100 06/23/18 03:39 06/23/18 03:39 06/23/18 03:39 06/23/18 03:39 06/23/18 03:39 Oxygen Devices in Use Now: Nasal Cannula Appearance: Male sitting up in bed in NAD Eyes: No Scleral Icterus Ears/Nose/Mouth/Throat: Mucous Membranes Moist Neck: Trachea Midline Respiratory: Clear to Auscultation, - - Crackles in bases, good aeration Cardiovascular: NL Sounds; No Murmurs; No JVD, - - +2 edema up to thigh Skin: No Rash or Ulcers Neurological: Alert and Oriented x 3, NL Muscle Strength and Tone Nutrition: Taking PO's Result Diagrams: 06/22/18 05:23 06/22/18 05:23 Microbiology and Other Data: . Diagnostic Imaging: . Assess/Plan/Problems-Billing Assessment: Mr. Galo is a 52-year-old male patient with CKD stage V who presents after several admissions over the past couple of weeks with acute shortness of breath and fluid overload, now admitted for fluid overload, likely will need dialysis in the near future. - Patient Problems (1) CKD (chronic kidney disease) Comment: - Continues to improve. - With extreme fluid overload 2/2 to stopping outpatient diuretics - Continue lasix 60mg BID and metolazone 5mg daily until euvolemic - Creatinine remains >5 - Nephrology following, will see Dr. Ramirez outpatient - Continue to wean O2 as tolerated (2) Chronic diastolic (congestive) heart failure Comment: - EF improved on this ECHO to 60-65% - Fluid overload is 2/2 renal dysfunction - Continue lasix and metolazone. (3) Metabolic acidosis Comment: - Continue bicitra per Dr. Ramirez TID (4) Hyperkalemia Comment: - Resolved. - In the setting of renal failure (5) Wound of right foot Comment: - Cast replaced 06/20 - Ortho and wound care following - Will need crutches to offload - Wound not currently infected (6) Anemia of chronic disease Comment: -Relatively stable -No symptoms/signs of bleeding (7) COPD (chronic obstructive pulmonary disease) Comment: - Not in exacerbation - Continue inhalers and supportive care (8) Diabetes Comment: - Hypoglycemia resolved - Continue lantus per routine at home (9) Hypertension Comment: - Continue nifedepine, metoprolol, lasix, and metolazone. - BP elevated but suspect will normalize as he becomes euvolemic with diuresis. (10) DVT prophylaxis Comment: - HSQ (11) Full code status Comment: Status and Disposition: Discharge to home.
[2018-06-23] MEDS: Mometasone/Formoter 100/5 MDI INH SCH (07:46)
[2018-06-23 08:02] VITALS: BP 165/79
[2018-06-23] MEDS: Calcitriol CAP* 0.25 MCG PO SCH (08:10)
[2018-06-23] MEDS: Atorvastatin* 10 MG TAB PO SCH (08:10)
[2018-06-23] MEDS: Metolazone TAB* 5 MG PO SCH (08:10)
[2018-06-23] MEDS: NIFEdipine ER TAB* 60 MG PO SCH (08:10)
[2018-06-23] MEDS: Gabapentin CAP(*) 300 MG PO SCH (08:10)
[2018-06-23] MEDS: Calcium Acetate CAP* 667 MG PO SCH (08:10)
[2018-06-23] MEDS: Metoprolol Tartrate TAB* 25 MG PO SCH (08:10)
[2018-06-23] MEDS: Famotidine TAB* 20 MG PO SCH (08:10)
[2018-06-23] MEDS: Sertraline* 50 MG TAB PO SCH (08:11)
[2018-06-23] MEDS: Sodium Citrate/Citric Acid* 15 ML UDC PO SCH (08:11)
[2018-06-23] MEDS: Insulin LISPRO* 1 UNITS UNIT SUBCUT SCH (08:11)
[2018-06-23] MEDS: Insulin GLARGINE(*) 1 UNITS UNIT SUBCUT SCH (08:11)
[2018-06-23] MEDS: Furosemide IV* 10 MG/ML 10 ML VIAL (100 MG) IV SCH (08:58)
--- NOTE | 2018-06-24 02:33 | DS ---
CC: Dr. Morrison, Primary care; Dr. Galarza, Orthopedist; Dr. Ramirez, furniture and bedding inspector. * DISCHARGE SUMMARY: DATE OF ADMISSION: 06/19/18 DATE OF DISCHARGE: 06/23/18 ATTENDING PHYSICIAN: Dr. Bruno Castellanos * (dictation provided by Yue Mccall NP ). PRIMARY DIAGNOSES: 1. Chronic kidney disease, stage 5. 2. Fluid overload secondary to stopping diuretics. SECONDARY DIAGNOSES: 1. Type 2 diabetes, insulin dependent. 2. Chronic diastolic heart failure. 3. Hypertension. 4. Chronic nonhealing foot wound status post transmetatarsal amputations bilaterally. 5. Chronic anemia. MEDICATIONS: 1. Calcium acetate 667 mg p.o. q.a.c. 2. Calcitriol 0.5 mcg p.o. daily. 3. Tylenol 650 mg p.o. q.4 hours p.r.n. 4. Sertraline 50 mg p.o. daily. 5. Nifedipine ER 60 mg p.o. daily. 6. Metoprolol tartrate 12.5 mg p.o. q.12 hours. 7. L. acidophilus with L. bulgaricus 2 chewable tabs p.o. daily. 8. Novolin insulin 10 units subcutaneously t.i.d. 9. Gabapentin 300 mg p.o. t.i.d. 10. Simvastatin 20 mg p.o. daily. 11. Ranitidine 150 mg p.o. b.i.d. 12. Bicitra 15 mL p.o. t.i.d. (new medication). 13. Metolazone 5 mg p.o. daily. 14. Lantus insulin 45 units subcutaneously daily. 15. Furosemide 60 mg p.o. b.i.d. HOSPITAL COURSE: Mr. Galo is a 52-year-old male who presented to the hospital on 06/19/18 with concern for shortness of breath. Please see dictated H and P from Bárbara Solo for complete details. In brief, the patient had frequent admissions for history of CKD stage 5 secondary to uncontrolled diabetes. He had been admitted to [facility] and that time he had been told to stop his diuretics. Since stopping the diuretics, he had noted a 40-pound weight gain over a 2-week period. Patient was seen at Dr. Galarza's office for history of chronic nonhealing foot wounds and transmetatarsal amputations bilaterally and was noted to have an O2 saturation of 86% on room air and he was therefore sent to the emergency room. In the emergency room, the patient had chest x-ray, which showed cardiomegaly with interstitial edema consistent with CHF. Patient was noted to have significant anasarca bilateral lower extremities and up into the abdomen. Mr. Galo was admitted to the hospital and started on intravenous Lasix. With this, he has had good urine output daily and his weight appears to have fallen about 8 pounds. He had a transthoracic echocardiogram, which showed an intact ejection fraction and no significant valvular abnormalities. He was seen in consultation by Dr. Ramirez from the Nephrology team. He recommended that the patient should continue with intravenous diuresis and when stable could be discharged to home on metolazone 5 mg and Lasix 60 mg b.i.d. He also plans to start Epogen or Aranesp depending on what is covered for his prescription coverage, but this will start as outpatient. Mr. Galo is doing quite well today. He feels much better. He is ambulating in his room without difficulty. He continues to be hypoxic and requires 4 L nasal cannula, but does have oxygen available at home. He has some mild crackles in the bases of his lungs. He states that he has had significant reduction in edema in his legs and in his abdomen. He is tolerating oral intake well and denies chest pain. Mr. Galo is medically stable for discharge to home. He will continue on aggressive diuresis and will have follow up with both his primary care physician Dr. Morrison and with Dr. Ramirez from Nephrology for ongoing management of his chronic comorbidities. Mr. Galo is medically stable for discharge to home. DISPOSITION: Home. DIET: Renal. Low carb, low fat, low salt. ACTIVITY: As tolerated. FOLLOWUP PLANS: 1. Please follow up with Dr. Morrison within the next week and an appointment has been scheduled for 06/26/18 and at 9:20 a.m. 2. Please follow up with Dr. Ramirez within the next 1 to 2 weeks. 3. Please follow up with Dr. Galarza and Dr. Martinez per routine for chronic lower extremity infections, not active. TIME SPENT: Approximately 60 minutes was spent on the discharge of this patient , more than half of the time was spent with the patient at the bedside reviewing the events leading up to this hospitalization, performing the physical examination, and reviewing my plan of care. YUE MCCALL NP [id number]/[facility] #: [id number] MTDD
== END 2018-06-23 11:15 | disposition home or self-care (01) | DRG 699 ==
LOC: ED 12:02 → MEDTELE 17:54
PROVIDERS: ADMIT Internal Medicine; ATTEND Internal Medicine
PROC: 2W5 Placement, Anatomical Regions, Removal (ICD-10-PCS; principal; 2018-06-20)
PROC: 2W3SX2Z Immobilization of Right Foot using Cast (ICD-10-PCS; 2018-06-20)
DX: E11.22 Type 2 diabetes mellitus with diabetic chronic kidney disease (principal); I13.2 Hypertensive heart and chronic kidney disease with heart failure and with stage 5 chronic kidney disease, or end stage renal disease; I50.32 Chronic diastolic (congestive) heart failure; Z68.42 Body mass index [BMI] 45.0-49.9, adult; E87.2 Acidosis; Z99.81 Dependence on supplemental oxygen; E66.01 Morbid (severe) obesity due to excess calories; E87.70 Fluid overload, unspecified; E87.5 Hyperkalemia; L97.519 Non-pressure chronic ulcer of other part of right foot with unspecified severity; N18.5 Chronic kidney disease, stage 5; D63.1 Anemia in chronic kidney disease; E11.40 Type 2 diabetes mellitus with diabetic neuropathy, unspecified; E11.319 Type 2 diabetes mellitus with unspecified diabetic retinopathy without macular edema; E11.43 Type 2 diabetes mellitus with diabetic autonomic (poly)neuropathy; K31.84 Gastroparesis; E11.21 Type 2 diabetes mellitus with diabetic nephropathy; E11.621 Type 2 diabetes mellitus with foot ulcer; Z89.432 Acquired absence of left foot; Z89.431 Acquired absence of right foot; Z87.891 Personal history of nicotine dependence; Z83.3 Family history of diabetes mellitus; Z88.1 Allergy status to other antibiotic agents; Z79.899 Other long term (current) drug therapy; Z79.4 Long term (current) use of insulin; Z79.1 Long term (current) use of non-steroidal anti-inflammatories (NSAID)
CPT/HCPCS: 36415; 36600; 71045; 80053; 82803; 83605; 83880; 84484; 85025; 85610; 87040; 93005; 93306; 94640; 99284; A9270-GY; C8929; J0360; J0885; J1644; J1940

== ENCOUNTER 2018-06-25 18:12 | Emergency (ER) | payer MEDICARE, MEDICAID ==
[2018-06-25 18:27] VITALS: BP 212/107
--- NOTE | 2018-06-25 18:29 | UC ---
Shortness of Breath HPI - HPI Summary HPI Summary: Pt is a 52 year old M presenting to with a chief complaint of sob. He came to with his friend who needed an xray, when the sob suddenly came on, making him mildly dizzy. Pt with diaphoresis. Pt states he was discharged from the hospital on Monday after a 4 days admission for SOB and low oxygen levels. Pt The pt has used oxygen since last week and is unsure why. The pt has diabetes , and toes on both his feet have been amputated. Pt states take Insulin - took this morning - did eat. Does not check his sugars. The pt denies CP or vomiting , also denies a hx of blood clots. Pt does not know why he was put on oxygen when he was discharged from the hospital. Patient's medications reviewed this visit. - History of Current Complaint Stated Complaint: SHORTNESS OF BREATH Time Seen by Provider: 06/25/18 18:20 Hx Obtained From: Patient, Medical Records - discharge summary from 06/23 Onset/Duration: Sudden Onset, Lasting Minutes, Still Present Current Severity: Moderate Dyspnea At: Rest Aggrevating Factors: Nothing Alleviating Factors: Oxygen Associated Signs & Symptoms: Positive: Other - pallor - Allergy/Home Medications Allergies/Adverse Reactions: Allergies Allergy/AdvReac Type Severity Reaction Status Date / Time peanut Allergy Rash Verified 06/25/18 18:28 peanut oil Allergy Rash Verified 06/25/18 18:28 spinach Allergy "My tongue Verified 06/25/18 18:28 swells up and I can't breathe." strawberry Allergy "My tongue Verified 06/25/18 18:28 swells right up." sulfamethoxazole Allergy "I don't Verified 06/25/18 18:28 [From Bactrim] know ... lips swelled up." trimethoprim [From Bactrim] Allergy "I don't Verified 06/25/18 18:28 know ... lips swelled up." PMH/Surg Hx/FS Hx/Imm Hx Previously Healthy: No Endocrine History: Diabetes Cardiovascular History: Hypertension, Congestive Heart Failure, Other Other Cardiovascular History: negative blood clots GI/ History: Renal Disease - Surgical History Surgical History: Yes Surgery Procedure, Year, and Place: right big toe amputation, - ALL REMOVED NOW (11/2017). CATARACT WITH LENS IMPLANTS - BY DR DENNEY. 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 - Family History Known Family History: Positive: Diabetes Negative: Cardiac Disease - Social History Alcohol Use: Rare Substance Use Type: None Substance Use Comment - Amount & Last Used: CHEWING TOBACCO Smoking Status (MU): Former Smoker Type: Smokeless Tobacco Amount Used/How Often: quit in 2009 Length of Time of Smoking/Using Tobacco: <1 PPD x 26 Years Have You Smoked in the Last Year: No When Did the Patient Quit Smoking/Using Tobacco: 2009 Household Exposure Type: Cigarettes - Immunization History Most Recent Influenza Vaccination: 2018 Most Recent Pneumonia Vaccination: never Review of Systems Constitutional: Fatigue, Other - lightheadedness, nausea Respiratory: Shortness Of Breath Cardiovascular: Chest Pain Gastrointestinal: Negative - vomiting Neurological: Other - dizziness All Other Systems Reviewed And Are Negative: Yes Physical Exam - Summary Physical Exam Summary: Vital Signs Reviewed: Yes A+Ox3, pt ill appearing, ashen color, tachypnea Eyes: Conjunctiva Clear ENT: Hearing grossly normal Neck: Positive: Supple Respiratory: fine crackles bases, initial increased RR - improved on O2 Cardiovascular: RRR nl s1, s2 no m/r CBT <2 sec abd soft + BS nt/nd no guarding, no distension Musculoskeletal Exam: ambulatory Neurological: Positive: Alert, + sensation throughout Psychological: Positive: Normal Response To Family Skin: Positive: no rash, no ecchymosis Pt ashen french - improved to pallor on oxygen Triage Information Reviewed: Yes Diagnostics - EKG Cardiac Rate: NL - 63bpm Cardiac Rhythm: Sinus: Normal Ectopy: None ST Segment: Normal EKG Comparison: No Significant Change - No ST changes cmopared to 06/19/18. Shortness of Breath Dx - Course Course Of Treatment: Blood pressure noted and patient informed to follow up with PCP. 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 Patient's a 52- year-old gentleman with a complex medical history including renal disease, hypertension, congestive heart failure, who was recently discharged from the hospital on oxygen for hypoxia after a 5 day admission. Patient today drove from [place] to here without oxygen. Patient walked into the building and requested it. Patient was noted to be ashen in color. Patient diaphoretic reported he felt lightheaded. Patient escorted mealy to a room where oximeter 87%. Patient was placed on oxygen mask within immediate improvement of sats. Patient color became more pale and he became less diaphoretic. Patient's breathing improved somewhat. Patient's blood sugar was checked and found to be 97. After discussion with patient as well as his friend at the bedside commits patient shortly emergency primary for further evaluation. Patient initially resisted but agreed. Patient's EKG reviewed. IV placed. 911 called for transfer by [place]. Report was given Dr. Enamorado in the emergency department. - Differential Dx/Diagnosis Provider Diagnoses: hypoxia. KINNEY - Physician Notification/Consults Discussed Patient Care With: Drake Enamorado - report given Discharge - Sign-Out/Discharge Documenting (check all that apply): Patient Departure - transfer All imaging exams completed and their final reports reviewed: No Studies - Discharge Plan Condition: Stable Disposition: TRANS HIGHER LVL OF CARE FAC Referrals: Siddhartha Morrison DO [Primary Care Provider] - - Billing Disposition and Condition Condition: STABLE Disposition: Trans Higher Lvl of Care Fac - Attestation Statements Document Initiated by Scribe: Yes Documenting Scribe: Toma Romero Provider For Whom Scribe is Documenting (Include Credential): Codi Dela Cruz MD. Scribe Attestation: Toma Cabral, scribed for Codi Dela Cruz MD. on 06/25/18 at 1847. Scribe Documentation Reviewed: Yes Provider Attestation: The documentation as recorded by the scribe, Toma Romero accurately reflects the service I personally performed and the decisions made by me, Codi Dela Cruz MD. Consult Consult: 1838 - Spoke with Drake Enamorado MD. about transferring the patient to the ED by EMS. Updated him on the pt's current status and hx, and he will be the accepting physician at the ED.
== END 2018-06-25 18:46 | disposition short-term general hospital (02) ==
LOC: UCEAST 18:12
DX: R09.02 Hypoxemia (principal); R06.00 Dyspnea, unspecified; R42 Dizziness and giddiness; R07.89 Other chest pain; R53.83 Other fatigue; Z89.411 Acquired absence of right great toe; Z89.432 Acquired absence of left foot; R11.0 Nausea; Z89.431 Acquired absence of right foot; Z91.010 Allergy to peanuts; Z88.2 Allergy status to sulfonamides; Z91.018 Allergy to other foods; Z87.891 Personal history of nicotine dependence
CPT/HCPCS: 93005; 99213; G0463

== ENCOUNTER 2018-06-25 19:05 | Emergency (ER) | payer MEDICARE, MEDICAID ==
[2018-06-25] MEDS ORDERED: cloNIDine 0.1 MG PATCH* 0.1 MG/24 HR 7 DAY PATCH TRANSDERM SCH (20:00)
--- NOTE | 2018-06-25 20:10 | ED ---
Shortness of Breath - HPI Summary HPI Summary: This pt is a 52 y/o male presenting to [facility] via EMS from [facility] for SOB today. Pt reports he was at Urgent Care with a friend who was getting an XR when the pt suddenly felt SOB. Pt was assessed at Urgent Care and was noted to have O2 sat in the low 80s. Pt states he was given an oxygen tank to use 3L of O2 PRN at home by Dr. Rodriguez after a sleep apnea study. He is unsure why it was given to him. Pt denies any complaints currently. Denies SOB, cough, chest pain , abd pain, fever, chills. He reports his blood pressure was also elevated at Urgent Care. Pt was recently discharged from the hospital 2 days ago after he was admitted for SOB and fluid overload. PMHx includes diabetes, HTN, kidney disease. Denies tobacco, drug or alcohol use. - History of Current Complaint Chief Complaint: EDShortnessOfBreath Time Seen by Provider: 06/25/18 19:50 Hx Obtained From: Patient Onset/Duration: Lasting Hours, Still Present Timing: Constant Current Severity: None Dyspnea At: Rest Aggrevating Factors: Nothing Alleviating Factors: Oxygen Associated Signs & Symptoms: Negative - Allergy/Home Medications Allergies/Adverse Reactions: Allergies Allergy/AdvReac Type Severity Reaction Status Date / Time peanut Allergy Rash Verified 06/25/18 18:28 peanut oil Allergy Rash Verified 06/25/18 18:28 spinach Allergy "My tongue Verified 06/25/18 18:28 swells up and I can't breathe." strawberry Allergy "My tongue Verified 06/25/18 18:28 swells right up." sulfamethoxazole Allergy "I don't Verified 06/25/18 18:28 [From Bactrim] know ... lips swelled up." trimethoprim [From Bactrim] Allergy "I don't Verified 06/25/18 18:28 know ... lips swelled up." PMH/Surg Hx/FS Hx/Imm Hx Endocrine/Hematology History: Reports: Hx Diabetes, Hx Anemia Denies: Hx Blood Transfusions, Hx Systemic Lupus Erythematosus, Hx Thyroid Disease, Other Endocrine/Hematological Disorders Cardiovascular History: Reports: Hx Angina, Hx Coronary Artery Disease, Hx Hypercholesterolemia, Hx Hypertension, Hx Peripheral Vascular Disease Denies: Hx Myocardial Infarction, Hx Pacemaker/ICD, Hx Valvular Heart Disease Respiratory History: Reports: Hx Chronic Obstructive Pulmonary Disease (COPD) - home O2, does not use, Hx Seasonal Allergies, Hx Sleep Apnea - suspected, Other Respiratory Problems/Disorders - COPD Denies: Hx Asthma, Hx Pulmonary Embolism GI History: Reports: Hx Gastroesophageal Reflux Disease Denies: Hx Ulcer History: Reports: Hx Chronic Renal Failure, Hx Kidney Stones - possibly 2017 per Pt, Other Problems/Disorders - CKD Denies: Hx Dialysis, Hx Kidney Infection, Hx Renal Disease Musculoskeletal History: Reports: Other Musculoskeletal History - 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 L achilles tendon remove Denies: Hx Rheumatoid Arthritis Sensory History: Reports: Hx Cataracts Denies: Hx Contacts or Glasses, Hx Hearing Aid Opthamlomology History: Reports: Hx Cataracts Denies: Hx Contacts or Glasses Neurological History: Reports: Hx Headaches, Other Neuro Impairments/Disorders - Hx Pre syncope, phantom toe pain left foot, yousuf numb/tingling feet Psychiatric History: Reports: Hx Anxiety - PRN LORAZEPAM, Hx Depression Denies: Hx Panic Disorder - Cancer History Hx Chemotherapy: No - Surgical History Surgery Procedure, Year, and Place: right big toe amputation, - ALL REMOVED NOW (11/2017). CATARACT WITH LENS IMPLANTS - BY DR DENNEY. 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 Hx Anesthesia Reactions: No Infectious Disease History: No Infectious Disease History: Reports: Hx of Known/Suspected MRSA - [facility], Chest, 2004 Denies: Hx Hepatitis, Hx Human Immunodeficiency Virus (HIV), History Other Infectious Disease, Traveled Outside the [place] in Last 30 Days - Family History Known Family History: Positive: Diabetes Negative: Cardiac Disease - Social History Alcohol Use: Rare Substance Use Type: Reports: None Substance Use Comment - Amount & Last Used: CHEWING TOBACCO Smoking Status (MU): Former Smoker Type: Smokeless Tobacco Amount Used/How Often: quit in 2009 Length of Time of Smoking/Using Tobacco: <1 PPD x 26 Years Have You Smoked in the Last Year: No Review of Systems Negative: Fever, Chills Cardiovascular: Other - hypertension Negative: Chest Pain Negative: Shortness Of Breath, Cough Negative: Abdominal Pain All Other Systems Reviewed And Are Negative: Yes Physical Exam - Summary Physical Exam Summary: VITAL SIGNS: Reviewed. GENERAL: Patient is a well-developed and nourished male who is lying comfortable in the stretcher. Patient is on 2L of oxygen via nasal cannula. HEAD AND FACE: No signs of trauma. No ecchymosis, hematomas or skull depressions. No sinus tenderness. EYES: PERRLA, EOMI x 2, No injected conjunctiva, no nystagmus. EARS: Hearing grossly intact. Ear canals and tympanic membranes are within normal limits. MOUTH: Oropharynx within normal limits. NECK: Supple, trachea is midline, no adenopathy, no JVD, no carotid bruit, no c- spine tenderness, neck with full ROM. CHEST: Symmetric, no tenderness at palpation LUNGS: Clear to auscultation bilaterally. No wheezing or crackles. CVS: Regular rate and rhythm, S1 and S2 present, no murmurs or gallops appreciated. ABDOMEN: Soft, non-tender. No signs of distention. No rebound, no guarding, and no masses palpated. Bowel sounds are normal. EXTREMITIES: no edema, no cyanosis or clubbing. Multiple amputations of bilateral toes. NEURO: Alert and oriented x 3. No acute neurological deficits. Speech is normal and follows commands. SKIN: Dry and warm Triage Information Reviewed: Yes Vital Signs On Initial Exam: Initial Vitals Temp Pulse Resp BP Pulse Ox 98.6 F 63 20 215/105 98 06/25/18 19:27 06/25/18 19:27 06/25/18 19:27 06/25/18 19:27 06/25/18 19:27 Vital Signs Reviewed: Yes Diagnostics - Vital Signs Vital Signs Temp Pulse Resp BP Pulse Ox 06/25/18 19:27 98.6 F 63 20 215/105 98 - Laboratory Result Diagrams: 06/25/18 20:18 06/25/18 20:18 Lab Statement: Any lab studies that have been ordered have been reviewed, and results considered in the medical decision making process. - Radiology Chest XR Xray Interpretation: Positive (See Comments) - some interstitial congestion but no infiltrates Radiology Interpretation Completed By: ED Physician - EKG 20:15 Cardiac Rate: NL - at 60 bpm EKG Rhythm: Sinus Rhythm EKG Interpretation: No ST elevations. Course/Dx - Course Assessment/Plan: This pt is a 52 y/o male presenting to [facility] via EMS from [facility] for SOB today. Pt reports he was at Urgent Care with a friend who was getting an XR when the pt suddenly felt SOB. Pt was assessed at Urgent Care and was noted to have O2 sat in the low 80s. Pt states he was given an oxygen tank to use 3L of O2 PRN at home by Dr. Rodriguez after a sleep apnea study. He is unsure why it was given to him. Pt denies any complaints currently. Denies SOB, cough, chest pain, abd pain, fever, chills. He reports his blood pressure was also elevated at Urgent Care. Pt was recently discharged from the hospital 2 days ago after he was admitted for SOB and fluid overload. PMHx includes diabetes, HTN, kidney disease. Denies tobacco, drug or alcohol use. At arrival to the emergency department, the patient is not short of breath, he doesn't have any chest pain, and he has no symptoms. He also reports that he was discharged from the emergency department a couple days ago and he was placed on chronic oxygen. He is supposed to be wearing oxygen 24 hours a day. However, he did not understand and he thought that he will use the oxygen only as needed. Patient went to the urgent care today to accompany his friend to get an x-ray and the patient became short of breath and diaphoretic. He was assessed in the urgent care and they noticed that his O2 sat was only in the mid 80s. After the patient was placed in oxygen he had no other complaints. Patient denies any chest pain, shortness of breath and palpitations. Blood test results shows the patient has a chronic anemia, probably secondary to the chronic renal failure. CRP 17, BNP is 433. D-dimer is more than 1050. However all these labs are similar to previous labs done in the hospital and his previous admission a couple of days ago. The ABG has a pH of 7.38, PCO2 49 , PO2 115 and O2 sat of 98.3 with oxygen. Therefore the patient was recommended to continue using the oxygen 24 hours a day, not as needed. I discussed my physical exam and findings with Dr. Marks from the hospitalist services. He consulted for the patient and he also recommends for the patient to be discharged home with follow-up from his primary care physician. All his blood work and findings are similar to his baseline. Therefore Dr. Marks recommends for the patient to be discharged home and not be admitted. The patient continues to be asymptomatic therefore the patient was discharged home with follow-up from his PCP. He was also given clonidine and Lasix for his hypertension. The blood pressure has significantly improved and now the patient will be discharged home with follow-up from his PCP. - Diagnoses Provider Diagnoses: Hypoxia, Uncontrolled hypertension, CRF (chronic renal failure), Chronic anemia Discharge - Sign-Out/Discharge Documenting (check all that apply): Patient Departure - Discharge home - Discharge Plan Condition: Stable Disposition: HOME Patient Education Materials: Hypertension (ED), Hypoxia (ED) Referrals: Siddhartha Morrison DO [Primary Care Provider] - Additional Instructions: Use your oxygen 24 hours a day every day. FOLLOW UP WITH YOUR PRIMARY CARE PROVIDER WITHIN ONE WEEK FOR HIGH BLOOD PRESSURE NOTED TODAY. RETURN TO THE ED FOR ANY NEW OR WORSENING SYMPTOMS. - Billing Disposition and Condition Condition: STABLE Disposition: Home - Attestation Statements Document Initiated by Deloris: Yes Documenting Scribe: Kiesha Miller Provider For Whom Deloris is Documenting (Include Credential): Drake Enamorado MD Scribe Attestation: Kiesha Cabral, scribed for Drake Enamorado MD on 06/27/18 at 0910. Scribe Documentation Reviewed: Yes Provider Attestation: The documentation as recorded by the Kiesha vicente accurately reflects the service I personally performed and the decisions made by , Drake Enamorado MD
[2018-06-25 20:33] LABS: ABS Basophils 0 10^3/ul (0-0.2); ABS Eosinophils 0.2 10^3/ul (0-0.6); ABS Lymphocytes 0.8 10^3/ul (1.0-4.8); ABS Monocytes 0.7 10^3/ul (0-0.8); ABS Nucleated RBC 0 10^3/ul; Eosinophil % 4.2 % (0-6); Hematocrit 27 % (42-52); Hemoglobin 8.9 g/dl (14.0-18.0); Lymphocyte % 13.7 % (25-47); Mean Corpuscular HGB Conc 33 g/dl (31-36); Mean Corpuscular Hemoglobin 28 pg (27-31); Mean Corpuscular Volume 86 fL (80-94); Mean Platelet Volume 8.1 um3 (7.4-10.4); Nucleated Red Blood Cells % 0.1; Platelet Count 151 10^3/ul (150-450); Red Blood Count 3.18 10^6/ul (4.00-5.40); Red Cell Distribution Width 17 % (10.5-15); White Blood Count 5.8 10^3/ul (3.5-10.8)
[2018-06-25 20:47] LABS: EGFR Non-African American 14.5 (>60)
[2018-06-25] MEDS ORDERED: cloNIDine TAB* 0.1 MG PO ONE (21:02)
[2018-06-25] MEDS ORDERED: cloNIDine TAB* 0.1 MG ONE (21:04)
[2018-06-25] MEDS ORDERED: Furosemide IV* 10 MG/ML VIAL (40 MG) IV ONE (21:25)
[2018-06-25 22:04] LABS: Urine Color Straw
[2018-06-25 22:05] LABS: Urine Appearance Clear; Urine Blood Negative (Negative); Urine Ketones Negative (Negative); Urine Protein 3+(>=500 mg/dL) (Negative); Urine Urobilinogen Negative (Negative)
[2018-06-25 22:25] VITALS: BP 194/91
--- NOTE | 2018-06-26 03:19 | CONSULT ---
Consult Consult: Asked to consider patient for admission for r/o PE. Upon evaluation, he was referred to [facility] ED via urgent care where he had taken a friend for evaluation. While there, they noted his color was not good and obtained a set of vitals including an saO2 reading of 84%. Of note, he was discharged from [facility] ED 2017 on oxygen with activity which he had not worn to urgent care. ED evaluation was notable for a d-dimer >1050, similar to a prior reading from 2017. He was unable to have a CTA 2nd stg V renal disease which is likely why his d-dimer is chronically elevated. He denies chest pain, light-headedness, and is not tachycardic. Once in the ED and placed back on his home oxygen dose, his saO2 robles to the high 90s. At this time, I do not feel given his presentation that further evaluation for PE is warranted and advised discharge with PCP follow up.
--- NOTE | 2018-06-26 07:53 | RAD ---
INDICATION: Shortness of breath. COMPARISON: Comparison is made with a prior chest x-ray study from June 19, 2018. TECHNIQUE: Dual-energy PA and lateral views of the chest were obtained. FINDINGS: The heart is within normal limits in size. Mediastinal and hilar contours appear within normal limits. There is diffuse prominence of the interstitial markings which appear similar to the prior exam. No pleural effusion is seen. IMPRESSION: FINDINGS SUGGESTIVE OF INTERSTITIAL PULMONARY EDEMA. R0
== END 2018-06-25 22:23 | disposition home or self-care (01) ==
LOC: ED 19:05
DX: R09.02 Hypoxemia (principal); I10 Essential (primary) hypertension; N18.9 Chronic kidney disease, unspecified; D64.9 Anemia, unspecified; Z87.891 Personal history of nicotine dependence; R06.00 Dyspnea, unspecified; R42 Dizziness and giddiness; R07.89 Other chest pain; R53.83 Other fatigue; Z89.411 Acquired absence of right great toe; Z89.432 Acquired absence of left foot; R11.0 Nausea; Z89.431 Acquired absence of right foot; Z88.2 Allergy status to sulfonamides; Z91.018 Allergy to other foods
CPT/HCPCS: 36415; 71046; 80053; 81003; 81015; 82550; 82553; 82803; 83880; 84484; 85025; 85379; 86140; 93005; 96374; 99284; A9270-GY; J1940

== ENCOUNTER → 2018-06-26 18:29 | Emergency (ER) | payer MEDICARE, MEDICAID ==
[~2018-06-26 18:29] MED LIST changes: -Buffered Lidocaine 1% SYRIN* 3 ML/SYR SYRINGE INTRADERM ONE; +cloNIDine TAB* 0.1 MG PO ONE
--- NOTE | 2018-06-26 19:00 | ED ---
GI/ HPI - HPI Summary HPI Summary: Pt is a 52 y/o male BIBA who presents to the ED c/o N/V/D. He was here last night for HTN and was discharged. Pt ate a big mac after being discharged and now c/o N/V/D, lower abdominal pain, headache, and dizziness. Pt also states his blood pressure is high again. He denies any LE edema. PMHx DM, kidney problems, heart disease, and respiratory problems. Pt is on 3 L O2 NC at home. PSHx bilateral foot amputation. He denies any smoking, alcohol, or drug use. - History of Current Complaint Chief Complaint: EDDizziness Time Seen by Provider: 06/26/18 18:45 Stated Complaint: HIGH BLOOD PRESSURE/DIFFCULTY BREATHING Hx Obtained From: Patient Onset/Duration: Started Hours Ago - Last night, Still Present Timing: Constant Pain Intensity: 0 Location of Pain: RLQ, LLQ Associated Signs and Symptoms: Positive: Dizziness, Nausea, Vomiting, Diarrhea, Abdominal Pain Aggravating Factor(s): Food - Eating a big mac Alleviating Factor(s): Nothing - Additional Pertinent History Primary Care Physician: [id number] - Allergy/Home Medications Allergies/Adverse Reactions: Allergies Allergy/AdvReac Type Severity Reaction Status Date / Time peanut Allergy Rash Verified 06/25/18 18:28 peanut oil Allergy Rash Verified 06/25/18 18:28 spinach Allergy "My tongue Verified 06/25/18 18:28 swells up and I can't breathe." strawberry Allergy "My tongue Verified 06/25/18 18:28 swells right up." sulfamethoxazole Allergy "I don't Verified 06/25/18 18:28 [From Bactrim] know ... lips swelled up." trimethoprim [From Bactrim] Allergy "I don't Verified 06/25/18 18:28 know ... lips swelled up." PMH/Surg Hx/FS Hx/Imm Hx Endocrine/Hematology History: Reports: Hx Diabetes, Hx Anemia Denies: Hx Blood Transfusions, Hx Systemic Lupus Erythematosus, Hx Thyroid Disease, Other Endocrine/Hematological Disorders Cardiovascular History: Reports: Hx Angina, Hx Coronary Artery Disease, Hx Hypercholesterolemia, Hx Hypertension, Hx Peripheral Vascular Disease Denies: Hx Congestive Heart Failure, Hx Myocardial Infarction, Hx Pacemaker/ ICD, Hx Valvular Heart Disease Respiratory History: Reports: Hx Chronic Obstructive Pulmonary Disease (COPD) - home O2, does not use, Hx Seasonal Allergies, Hx Sleep Apnea - suspected, Other Respiratory Problems/Disorders - COPD Denies: Hx Asthma, Hx Pulmonary Embolism GI History: Reports: Hx Gastroesophageal Reflux Disease Denies: Hx Ulcer History: Reports: Hx Chronic Renal Failure, Hx Kidney Stones - possibly 2017 per Pt, Other Problems/Disorders - CKD Denies: Hx Dialysis, Hx Kidney Infection, Hx Renal Disease Musculoskeletal History: Reports: Other Musculoskeletal History - 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 L achilles tendon remove Denies: Hx Rheumatoid Arthritis Sensory History: Reports: Hx Cataracts Denies: Hx Contacts or Glasses, Hx Hearing Aid Opthamlomology History: Reports: Hx Cataracts Denies: Hx Contacts or Glasses Neurological History: Reports: Hx Headaches, Other Neuro Impairments/Disorders - Hx Pre syncope, phantom toe pain left foot, yousuf numb/tingling feet Psychiatric History: Reports: Hx Anxiety - PRN LORAZEPAM, Hx Depression Denies: Hx Panic Disorder - Cancer History Hx Chemotherapy: No - Surgical History Surgery Procedure, Year, and Place: right big toe amputation, - ALL REMOVED NOW (11/2017). CATARACT WITH LENS IMPLANTS - BY DR DENNEY. 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 Hx Anesthesia Reactions: No Infectious Disease History: No Infectious Disease History: Reports: Hx of Known/Suspected MRSA - [facility], Chest, 2004 Denies: Hx Hepatitis, Hx Human Immunodeficiency Virus (HIV), History Other Infectious Disease, Traveled Outside the [place] in Last 30 Days - Family History Known Family History: Positive: Diabetes Negative: Cardiac Disease - Social History Alcohol Use: Rare Hx Substance Use: No Substance Use Type: Reports: None Substance Use Comment - Amount & Last Used: CHEWING TOBACCO Hx Tobacco Use: Yes Smoking Status (MU): Former Smoker Type: Smokeless Tobacco Amount Used/How Often: quit in 2009 Length of Time of Smoking/Using Tobacco: <1 PPD x 26 Years Have You Smoked in the Last Year: No Review of Systems Positive: Abdominal Pain, Vomiting, Diarrhea, Nausea Negative: Edema Neurological: Other - Dizziness Positive: Headache All Other Systems Reviewed And Are Negative: Yes Physical Exam - Summary Physical Exam Summary: Appearance: Well appearing, no pain distress Skin: warm, dry, reflects adequate perfusion Head/face: normal Eyes: EOMI, MICKEY ENT: normal Neck: supple, non-tender Respiratory: CTA, breath sounds present Cardiovascular: RRR, pulses symmetrical Abdomen: LLQ tenderness, soft Bowel: present Musculoskeletal: normal, strength/ROM intact Neuro: normal, sensory motor intact, A&Ox3 Triage Information Reviewed: Yes Vital Signs On Initial Exam: Initial Vitals Temp Pulse Resp BP Pulse Ox 97.7 F 62 18 219/114 98 06/26/18 18:30 06/26/18 18:30 06/26/18 18:30 06/26/18 18:30 06/26/18 18:30 Vital Signs Reviewed: Yes Diagnostics - Vital Signs Vital Signs Temp Pulse Resp BP Pulse Ox 06/26/18 18:30 97.7 F 62 18 219/114 98 - Laboratory Result Diagrams: 06/26/18 20:02 06/26/18 20:02 Lab Statement: Any lab studies that have been ordered have been reviewed, and results considered in the medical decision making process. - CT CT A/P CT Interpretation: No Acute Changes - 1. No acute findings. No evidence of diverticulitis or bowel obstruction. 2. Mild splenomegaly. 3. Mild subcutaneous fat induration of the lower anterior abdominal wall. No abscess. ED physician reviewed radiology report. CT Interpretation Completed By: Willie CRAMER Course/Dx - Course Course Of Treatment: Pt is a 52 y/o male BIBA who presents to the ED c/o N/V/D. He was here last night for HTN and was discharged. Pt ate a big mac after being discharged and now c/o N/V/D, lower abdominal pain, headache, and dizziness. Pt also states his blood pressure is high again. He denies any LE edema. PMHx DM, kidney problems, heart disease, and respiratory problems. Pt is on 3 L O2 NC at home. A physical exam revealed LLQ tenderness. A CT A/P revealed 1. No acute findings. No evidence of diverticulitis or bowel obstruction. 2. Mild splenomegaly. 3. Mild subcutaneous fat induration of the lower anterior abdominal wall. No abscess.. Final dx are abdominal pain and chronic renal failure. Pt will be discharged and is agreeable with this plan. - Diagnoses Differential Diagnoses - Male: Diverticulitis, Gastroenteritis (Bacterial), Ureteral Calculi Provider Diagnoses: Abdominal pain, Chronic renal failure Discharge - Sign-Out/Discharge Documenting (check all that apply): Patient Departure - Discharge - Discharge Plan Condition: Stable Disposition: HOME Patient Education Materials: Chronic Kidney Disease (ED), Abdominal Pain (ED) Referrals: Siddhartha Morrison DO [Primary Care Provider] - 3 Days Additional Instructions: RETURN TO THE ED WITH ANY NEW OR WORSENING SYMPTOMS. - Billing Disposition and Condition Condition: STABLE Disposition: Home - Attestation Statements Document Initiated by Scribe: Yes Documenting Scribe: Le Perez Provider For Whom Deloris is Documenting (Include Credential): Davidson Roe MD Scribe Attestation: Le Cabral, scribed for Davidson Roe MD on 06/26/18 at 2044. Scribe Documentation Reviewed: Yes Provider Attestation: The documentation as recorded by the Le vicente accurately reflects the service I personally performed and the decisions made by Davidson proctor MD
[2018-06-26 20:17] LABS: ABS Basophils 0 10^3/ul (0-0.2); ABS Eosinophils 0.1 10^3/ul (0-0.6); ABS Lymphocytes 0.7 10^3/ul (1.0-4.8); ABS Monocytes 0.5 10^3/ul (0-0.8); ABS Neutrophils 3.9 10^3/ul (1.5-7.7); ABS Nucleated RBC 0 10^3/ul; Eosinophil % 1.7 % (0-6); Hematocrit 29 % (42-52); Hemoglobin 9.3 g/dl (14.0-18.0); Lymphocyte % 12.7 % (25-47); Mean Corpuscular HGB Conc 32 g/dl (31-36); Mean Corpuscular Hemoglobin 27 pg (27-31); Mean Corpuscular Volume 85 fL (80-94); Mean Platelet Volume 7.9 um3 (7.4-10.4); Nucleated Red Blood Cells % 0; Platelet Count 140 10^3/ul (150-450); Red Blood Count 3.38 10^6/ul (4.00-5.40); Red Cell Distribution Width 17 % (10.5-15); White Blood Count 5.2 10^3/ul (3.5-10.8)
[2018-06-26 20:31] LABS: EGFR Non-African American 14.4 (>60)
--- NOTE | 2018-06-26 20:31 | RAD ---
EXAM: CT Abdomen and Pelvis Without Intravenous Contrast CLINICAL HISTORY: 52 years old, male; Pain; Abdominal pain; Additional info: Llq tend/diverticulitis/renal failure TECHNIQUE: Axial computed tomography images of the abdomen and pelvis without intravenous contrast. All CT scans at this facility use at least one of these dose optimization techniques: automated exposure control; mA and/or kV adjustment per patient size (includes targeted exams where dose is matched to clinical indication); or iterative reconstruction. Coronal and sagittal reformatted images were created and reviewed. COMPARISON: CTA A/PW CTA ABD/PEL 07/08/2015 3:46 PM FINDINGS: Limitations: Image quality is degraded by motion and quantum mottle artifact from patient body habitus. Lung bases: Unremarkable. No mass. No consolidation. ABDOMEN: Liver: Unremarkable. Gallbladder and bile ducts: Unremarkable. No calcified stones or biliary dilation. Pancreas: Unremarkable. No mass Spleen: The spleen is mildly enlarged measuring 15 cm craniocaudad. Adrenals: Unremarkable. No mass. Kidneys and ureters: Unremarkable. No obstructing stones or hydronephrosis. Stomach and bowel: Occasional diverticula are present in the sigmoid colon. No evidence of diverticulitis. No bowel obstruction. PELVIS: Appendix: No findings to suggest acute appendicitis. Bladder: Unremarkable. No calcified stones. Reproductive: Unremarkable as visualized. ABDOMEN and PELVIS: Intraperitoneal space: Unremarkable. No free air or free fluid. Bones/joints: Degenerative change and grade 1 retrolisthesis at L5/S1. Soft tissues: There is mild induration of the anterior abdominal subcutaneous fat. Vasculature: There is calcified plaque of the abdominal aorta and bilateral iliac arteries. No aortic aneurysm. Lymph nodes: Unremarkable. No enlarged lymph nodes. IMPRESSION: 1. No acute findings. No evidence of diverticulitis or bowel obstruction. 2. Mild splenomegaly. 3. Mild subcutaneous fat induration of the lower anterior abdominal wall. No abscess.
[2018-06-27 04:03] VITALS: BP 174/85
== END | disposition home or self-care (01) ==
LOC: ED 18:29
DX: N18.9 Chronic kidney disease, unspecified (principal); R10.9 Unspecified abdominal pain; R11.2 Nausea with vomiting, unspecified; R06.02 Shortness of breath; R42 Dizziness and giddiness; R19.7 Diarrhea, unspecified; I10 Essential (primary) hypertension
CPT/HCPCS: 36415; 74176; 80053; 83690; 84484; 85025; 99284; A9270-GY

== ENCOUNTER 2018-07-01 17:41 | Observation (INO) | payer MEDICARE, MEDICAID ==
[2018-07-01] MEDS ORDERED: hydrALAZINE IV* 20 MG/ML VIAL IV SLOW PU ONE ×2 (18:20→21:20)
--- NOTE | 2018-07-01 18:23 | ED ---
Headache - HPI Summary HPI Summary: Pt. is a 52 y.o male who presents to the ER for sinus congestion and cough x 3 days. Pt. also notes diffuse headache and high blood pressure. Past medical hx of COPD, AKD, DM, HTN. Pt. states he is unsure of when he is suppose to take his BP medications. He is currently on metoprolol 12.5 BID and lasix 60mg BID but pt. states he is only taking them in the morning. Pt. also notes N/V and abd. pain that started yesterday. Pt. also notes chronic right foot wound, he follows with podiatry. Symptoms are moderate in severity. No current modifying factors. - History Of Current Complaint Chief Complaint: EDHeadache Stated Complaint: HEADACHE Time Seen by Provider: 07/01/18 18:02 Hx Obtained From: Patient - Allergies/Home Medications Allergies/Adverse Reactions: Allergies Allergy/AdvReac Type Severity Reaction Status Date / Time peanut Allergy Rash Verified 06/25/18 18:28 peanut oil Allergy Rash Verified 06/25/18 18:28 spinach Allergy "My tongue Verified 06/25/18 18:28 swells up and I can't breathe." strawberry Allergy "My tongue Verified 06/25/18 18:28 swells right up." sulfamethoxazole Allergy "I don't Verified 06/25/18 18:28 [From Bactrim] know ... lips swelled up." trimethoprim [From Bactrim] Allergy "I don't Verified 06/25/18 18:28 know ... lips swelled up." PMH/Surg Hx/FS Hx/Imm Hx Previously Healthy: Yes Endocrine/Hematology History: Reports: Hx Diabetes, Hx Anemia Denies: Hx Blood Transfusions, Hx Systemic Lupus Erythematosus, Hx Thyroid Disease, Other Endocrine/Hematological Disorders Cardiovascular History: Reports: Hx Angina, Hx Coronary Artery Disease, Hx Hypercholesterolemia, Hx Hypertension, Hx Peripheral Vascular Disease Denies: Hx Congestive Heart Failure, Hx Myocardial Infarction, Hx Pacemaker/ ICD, Hx Valvular Heart Disease Respiratory History: Reports: Hx Chronic Obstructive Pulmonary Disease (COPD) - home O2, does not use, Hx Seasonal Allergies, Hx Sleep Apnea - suspected, Other Respiratory Problems/Disorders - COPD Denies: Hx Asthma, Hx Pulmonary Embolism GI History: Reports: Hx Gastroesophageal Reflux Disease Denies: Hx Ulcer History: Reports: Hx Chronic Renal Failure, Hx Kidney Stones - possibly 2017 per Pt, Other Problems/Disorders - CKD Denies: Hx Dialysis, Hx Kidney Infection, Hx Renal Disease Musculoskeletal History: Reports: Other Musculoskeletal History - 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 L achilles tendon remove Denies: Hx Rheumatoid Arthritis Sensory History: Reports: Hx Cataracts Denies: Hx Contacts or Glasses, Hx Hearing Aid Opthamlomology History: Reports: Hx Cataracts Denies: Hx Contacts or Glasses Neurological History: Reports: Hx Headaches, Other Neuro Impairments/Disorders - Hx Pre syncope, phantom toe pain left foot, yousuf numb/tingling feet Psychiatric History: Reports: Hx Anxiety - PRN LORAZEPAM, Hx Depression Denies: Hx Panic Disorder - Cancer History Hx Chemotherapy: No - Surgical History Surgery Procedure, Year, and Place: right big toe amputation, - ALL REMOVED NOW (11/2017). CATARACT WITH LENS IMPLANTS - BY DR DENNEY. 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 Hx Anesthesia Reactions: No - Immunization History Immunizations Up to Date: Yes Infectious Disease History: No Infectious Disease History: Reports: Hx of Known/Suspected MRSA - [facility], Chest, 2004 Denies: Hx Hepatitis, Hx Human Immunodeficiency Virus (HIV), History Other Infectious Disease, Traveled Outside the [place] in Last 30 Days - Family History Known Family History: Positive: Diabetes Negative: Cardiac Disease - Social History Occupation: Disabled Lives: With Family Alcohol Use: Rare Hx Substance Use: No Substance Use Type: Reports: None Substance Use Comment - Amount & Last Used: CHEWING TOBACCO Hx Tobacco Use: Yes Smoking Status (MU): Former Smoker Type: Smokeless Tobacco Amount Used/How Often: quit in 2009 Length of Time of Smoking/Using Tobacco: <1 PPD x 26 Years Have You Smoked in the Last Year: No Review of Systems Constitutional: Negative Negative: Fever, Chills Eyes: Negative Positive: Other - sinus congestion and pressure Cardiovascular: Negative Negative: Palpitations, Chest Pain Positive: Shortness Of Breath, Cough Positive: Abdominal Pain, Vomiting, Nausea. Negative: Diarrhea Genitourinary: Negative Positive: Headache. Negative: Weakness, Paresthesia, Numbness, Syncope, Slurred Speech All Other Systems Reviewed And Are Negative: Yes Physical Exam Triage Information Reviewed: Yes Vital Signs On Initial Exam: Initial Vitals Temp Pulse Resp BP Pulse Ox 97.0 F 66 16 214/102 97 07/01/18 17:42 07/01/18 17:42 07/01/18 17:42 07/01/18 17:42 07/01/18 17:42 Vital Signs Reviewed: Yes Appearance: Positive: Well-Appearing - Pt. sitting up in bed in NAD. Skin: Positive: Warm, Dry Head/Face: Positive: Normal Head/Face Inspection Eyes: Positive: Normal, EOMI, MICKEY, Conjunctiva Clear ENT: Positive: Sinus tenderness Neck: Positive: Supple Respiratory/Lung Sounds: Positive: Clear to Auscultation, Breath Sounds Present Cardiovascular: Positive: Normal, RRR Abdomen Description: Positive: Other: - Morbidly obese. Abd. is soft with mild tenderness to the LUQ. No rebound tenderness or guarding. Neurological: Positive: Sensory/Motor Intact, CN Intact II-III, Facial Symmetry , Speech Normal. Negative: Disoriented Psychiatric: Positive: Affect/Mood Appropriate - [place] Coma Scale Best Eye Response: 4 - Spontaneous Best Motor Response: 6 - Obeys Commands Best Verbal Response: 5 - Oriented Coma Scale Total: 15 Diagnostics - Vital Signs Vital Signs Temp Pulse Resp BP Pulse Ox 07/01/18 17:42 97.0 F 66 16 214/102 97 - Laboratory Result Diagrams: 07/01/18 19:04 07/01/18 19:03 Lab Statement: Any lab studies that have been ordered have been reviewed, and results considered in the medical decision making process. Headache Course/Dx - Course Course Of Treatment: Pt. presenting with HTN, h/a, sinus congestion/pressure. He is afebrile and well appearing. BP 214/102. O2 saturation is 97% on RA which is normal. Will obtain labs, ecg, cxr, and head ct. Pt. overall is well appearing without neurological deficits. Case discussed with Dr. Enamorado who recommends 10mg IV hydralazine for HTN. CBC shows chronic anemia. CMP shows chronic renal failure. Troponin 0.04. ECG done at 1815 shows a sinus rhythm of 69bpm, normal axis, prolonged QT interval, no ST elevation or depression. Head CT is negative. Pt. started dry heaving and c/o lower abd. pain. He was given 2 doses of zofran and continued to N/V. Compazine IV given. CT of abd. ordered. CT abd. is negative for acute findings per radiology. 2119: Pt's HTN persist 223/121, another 10mg hydralazine ordered. Pt. is resting much more comfortably and N/V has subsided. Pt. did have a loose BM in the ER- suspect viral gastroenteritis. Hospitalist was contacted for admission for HTN urgency. I spoke with Dr. Marks and pt. has been accepted to his service. - Diagnoses Differential Diagnosis/HQI/PQRI: CVA, Epidural Hematoma, Subdural Hematoma, Migraine, Sinus Headache, Subarachnoid Hemorrhage, Tension Headache, Viral Syndrome Provider Diagnoses: Hypertensive urgency, Abdominal pain, Vomiting and diarrhea Discharge - Sign-Out/Discharge Documenting (check all that apply): Patient Departure - Discharge Plan Condition: Stable Disposition: ADMITTED TO [facility] Referrals: Siddhartha Morrison DO [Primary Care Provider] - - Billing Disposition and Condition Condition: STABLE Disposition: Admitted to [facility]
--- NOTE | 2018-07-01 18:41 | RAD ---
EXAM: CT Head Without Intravenous Contrast CLINICAL HISTORY: 52 years old, male; Pain; Headache; Headache not specified; Additional info: H/a, HTN TECHNIQUE: Axial computed tomography images of the head/brain without intravenous contrast. All CT scans at this facility use at least one of these dose optimization techniques: automated exposure control; mA and/or kV adjustment per patient size (includes targeted exams where dose is matched to clinical indication); or iterative reconstruction. COMPARISON: No relevant prior studies available. FINDINGS: Brain: Unremarkable. No hemorrhage. No significant white matter disease. No edema. Ventricles: Unremarkable. No ventriculomegaly. Bones/joints: Unremarkable. No acute fracture. Soft tissues: Unremarkable. Sinuses: Unremarkable as visualized. No acute sinusitis. Mastoid air cells: Unremarkable as visualized. No mastoid effusion. IMPRESSION: No acute intracranial pathology.
[2018-07-01] MEDS ORDERED: Acetaminophen TAB* 325 MG PO ONE (18:48)
[2018-07-01 19:16] LABS: ABS Basophils 0.1 10^3/ul (0-0.2); ABS Eosinophils 0.3 10^3/ul (0-0.6); ABS Lymphocytes 1.1 10^3/ul (1.0-4.8); ABS Monocytes 0.6 10^3/ul (0-0.8); ABS Nucleated RBC 0 10^3/ul; Eosinophil % 4.8 % (0-6); Hematocrit 35 % (42-52); Hemoglobin 10.9 g/dl (14.0-18.0); Lymphocyte % 15.4 % (25-47); Mean Corpuscular HGB Conc 31 g/dl (31-36); Mean Corpuscular Hemoglobin 27 pg (27-31); Mean Corpuscular Volume 86 fL (80-94); Nucleated Red Blood Cells % 0.1; Platelet Count 180 10^3/ul (150-450); Red Blood Count 4.08 10^6/ul (4.00-5.40); Red Cell Distribution Width 17 % (10.5-15); White Blood Count 7.1 10^3/ul (3.5-10.8)
[2018-07-01] MEDS ORDERED: Ondansetron TAB* 4 MG PO ONE (19:24)
[2018-07-01 19:35] LABS: EGFR Non-African American 14.1 (>60)
[2018-07-01] MEDS ORDERED: Ondansetron INJ* 2 MG/ML VIAL IV ONE (20:14)
[2018-07-01] MEDS ORDERED: PROCHLORPERAZINE INJ 5 MG/ML 2 ML VIAL IV ONE (20:46)
--- NOTE | 2018-07-01 22:04 | RAD ---
EXAM: CT Abdomen and Pelvis Without Intravenous Contrast CLINICAL HISTORY: 52 years old, male; Pain; Abdominal pain; Generalized; Additional info: Lower abd. Pain, vomiting TECHNIQUE: Axial computed tomography images of the abdomen and pelvis without intravenous contrast. All CT scans at this facility use at least one of these dose optimization techniques: automated exposure control; mA and/or kV adjustment per patient size (includes targeted exams where dose is matched to clinical indication); or iterative reconstruction. Coronal and sagittal reformatted images were created and reviewed. COMPARISON: A/P WO CT ABD/PEL W/O 06/26/2018 7:30 PM FINDINGS: Lung bases: There is bibasilar atelectatic change or scarring. ABDOMEN: Liver: Stable hepatomegaly. Gallbladder and bile ducts: Unremarkable. No calcified stones. No ductal dilation. Pancreas: Unremarkable. No ductal dilation. Spleen: Stable splenomegaly. Stable splenomegaly. Adrenals: Stable mild nodularity of the left adrenal gland. Kidneys and ureters: Unremarkable. No obstructing stones. No hydronephrosis. Stomach and bowel: Unremarkable. No obstruction. No mucosal thickening. PELVIS: Appendix: The appendix is unremarkable and seen best on axial image 79 of series 2. Bladder: Unremarkable. No stones. Reproductive: Unremarkable as visualized. ABDOMEN and PELVIS: Intraperitoneal space: Unremarkable. No free air. No significant fluid collection. Bones/joints: Stable mild degenerative changes of the spine. No acute fracture. No dislocation. Soft tissues: Unremarkable. Vasculature: Stable atherosclerotic aortic and iliac and femoral artery calcifications Stable calcified phleboliths in the pelvis. No abdominal aortic aneurysm. Lymph nodes: Unremarkable. No enlarged lymph nodes. IMPRESSION: No acute CT pathology.
[2018-07-01] MEDS ORDERED: niCARdipine 0.1MG/ML IVPREMIX* 20 MG/200 ML BAG IV SCH ×2 (23:00→23:20)
[2018-07-01] MEDS: niCARdipine 0.1MG/ML IVPREMIX* 20 MG/200 ML BAG IV SCH (23:58)
--- NOTE | 2018-07-02 01:24 | HP ---
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 After multiple episodes of emesis he did have some blood tinged emesis in ED per ED nursing, none prior per patient. No black or bloody stools. He has been in contact recently with an ill niece who had "the sniffles, some vomiting ". Evaluation is notable for severe HTN 210/100s, baseline BUN/cre 41/4.4, troponin 0.4 (0.3 on recheck), and no electrolyte abnormality. CT brain WO & abd /pel WO are negative for acute findings. In the ED he alternates from complaining of abdominal pain to complaining that he hasn't eaten. 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 Gabapentin CAP(*) [Neurontin 300 CAP(*)] 300 mg PO TID 12/20/17 Insulin Regular, Human [Novolin R] 10 unit SUBCUT TID 12/20/17 NIFEdipine ER TAB* [Procardia Xl TAB*] 60 mg PO DAILY 12/20/17 Sertraline* [Zoloft*] 50 mg PO DAILY 12/20/17 Simvastatin TAB(NF) [Zocor 20 MG (NF)] 20 mg PO DAILY 12/20/17 Acetaminophen TAB* [Tylenol TAB*] 650 mg PO Q4H PRN 30 Days #30 tab 05/29/18 Calcitriol CAP* [Rocaltrol CAP*] 0.5 mcg PO DAILY #30 cap 05/29/18 Calcium Acetate CAP* [Phoslo CAP*] 667 mg PO AC #90 cap 05/29/18 L. Acidophilus/L.bulgaricus [Floranex Tablet] 2 chw PO DAILY 18 Days #36 chw Metoprolol Tartrate TAB* [Lopressor TAB*] 12.5 mg PO Q12HR #60 tab 05/29/18 Ranitidine TAB (NF) [Zantac TAB (NF)] 150 mg PO BID 06/19/18 Furosemide TAB* [Lasix TAB*] 60 mg PO BID #90 tab 06/23/18 Insulin GLARGINE(*) [Lantus(*)] 45 units SUBCUT DAILY@0900 unit 06/23/18 Metolazone TAB* [Zaroxolyn TAB*] 5 mg PO DAILY@0730 #30 tab 06/23/18 Sodium Citrate/Citric Acid* [Bicitra*] 15 ml PO TID #90 udc 06/23/18 Allergies peanut Allergy (Verified 06/25/18 18:28) Rash peanut oil Allergy (Verified 06/25/18 18:28) Rash spinach Allergy (Verified 06/25/18 18:28) "My tongue swells up and I can't breathe." strawberry Allergy (Verified 06/25/18 18:28) "My tongue swells right up." sulfamethoxazole [From Bactrim] Allergy (Verified 06/25/18 18:28) "I don't know ... lips swelled up." trimethoprim [From Bactrim] Allergy (Verified 06/25/18 18:28) "I don't know ... lips swelled up." SocHx: quit smoking 8 years ago, rare alcohol, no recreational drugs; lives alone; full code status FamHx: positive for DM ROS: as above, otherwise reviewed and all were negative vitals: Vital Signs Temp 36.1 C 07/01/18 17:42 Pulse 96 07/02/18 01:00 Resp 16 07/01/18 17:42 BP 142/84 07/02/18 00:52 Pulse Ox 94 07/02/18 01:00 Intake & Output 07/01/18 07/01/18 07/02/18 11:59 23:59 11:59 Weight 169.644 kg Constitutional: NAD, normally developed, morbidly obese white male HEENM: atraumatic; sclera/conjunctiva: anicteric/clear; hearing: clinically intact; oropharynx: clear, mucosa moist Neck: soft tissue: non-tender, no nuchal rigidity; thyroid: normal Pulmonary: clear to auscultation bilaterally, good aeration, no accessory muscle use CV: RR/RR, normal S1S2, no carotid bruit, no jugular venous distention, 1+ B DP/ PT, trace edema Abdominal: soft, non-distended, diffusely mildly tender, no rebound/guarding/ rigidity, normoactive bowel sounds, no hepatosplenomegaly or masses, no costovertebral angle tenderness Musculoskeletal: general: B transmetatarsal amputations Integumental: R plantar surface with ~4.5x3cm unstageable ulcer, no malodor, serosanguinous drainage present Psychiatric orientation: AA&O to PPS affect: ill-appearing mood: irritable eye contact: poor content: reliable responses: timely insight: poor Testing: Lab Results 07/01/18 07/01/18 07/01/18 Range/Units 19:03 19:04 19:04 WBC 7.1 (3.5-10.8) 10^3/ul RBC 4.08 (4.00-5.40) 10^6/ul Hgb 10.9 L (14.0-18.0) g/dl Hct 35 L (42-52) % MCV 86 (80-94) fL MCH 27 (27-31) pg MCHC 31 (31-36) g/dl RDW 17 H (10.5-15) % Plt Count 180 (150-450) 10^3/ul MPV 8.0 (7.4-10.4) um3 Neut % (Auto) 70.0 (38-83) % Lymph % (Auto) 15.4 L (25-47) % [place] % (Auto) 9.1 H (0-7) % Eos % (Auto) 4.8 (0-6) % Baso % (Auto) 0.7 (0-2) % Absolute Neuts (auto) 5.0 (1.5-7.7) 10^3/ul Absolute Lymphs (auto) 1.1 (1.0-4.8) 10^3/ul Absolute Monos (auto) 0.6 (0-0.8) 10^3/ul Absolute Eos (auto) 0.3 (0-0.6) 10^3/ul Absolute Basos (auto) 0.1 (0-0.2) 10^3/ul Absolute Nucleated RBC 0 10^3/ul Nucleated RBC % 0.1 Sodium 142 (135-145) mmol/L Potassium 3.5 (3.5-5.0) mmol/L Chloride 103 (101-111) mmol/L Carbon Dioxide 29 (22-32) mmol/L Anion Gap 10 (2-11) mmol/L BUN 41 H (6-24) mg/dL Creatinine 4.47 H (0.67-1.17) mg/dL Est GFR ( Amer) 17.0 (>60) Est GFR (Non-Af Amer) 14.1 (>60) BUN/Creatinine Ratio 9.2 (8-20) Glucose 105 H (70-100) mg/dL Calcium 9.1 (8.6-10.3) mg/dL Total Bilirubin 0.40 (0.2-1.0) mg/dL AST 23 (13-39) U/L ALT 13 (7-52) U/L Alkaline Phosphatase 85 (34-104) U/L Troponin I 0.04 H* (<0.04) ng/mL B-Natriuretic Peptide 443 H ( - 100) pg/mL Total Protein 6.8 (6.4-8.9) g/dL Albumin 3.4 (3.2-5.2) g/dL Globulin 3.4 (2-4) g/dL Albumin/Globulin Ratio 1.0 (1-3) Lipase 30 (11.0-82.0) U/L 07/01/18 Range/Units 22:11 WBC (3.5-10.8) 10^3/ul RBC (4.00-5.40) 10^6/ul Hgb (14.0-18.0) g/dl Hct (42-52) % MCV (80-94) fL MCH (27-31) pg MCHC (31-36) g/dl RDW (10.5-15) % Plt Count (150-450) 10^3/ul MPV (7.4-10.4) um3 Neut % (Auto) (38-83) % Lymph % (Auto) (25-47) % [place] % (Auto) (0-7) % Eos % (Auto) (0-6) % Baso % (Auto) (0-2) % Absolute Neuts (auto) (1.5-7.7) 10^3/ul Absolute Lymphs (auto) (1.0-4.8) 10^3/ul Absolute Monos (auto) (0-0.8) 10^3/ul Absolute Eos (auto) (0-0.6) 10^3/ul Absolute Basos (auto) (0-0.2) 10^3/ul Absolute Nucleated RBC 10^3/ul Nucleated RBC % Sodium (135-145) mmol/L Potassium (3.5-5.0) mmol/L Chloride (101-111) mmol/L Carbon Dioxide (22-32) mmol/L Anion Gap (2-11) mmol/L BUN (6-24) mg/dL Creatinine (0.67-1.17) mg/dL Est GFR ( Amer) (>60) Est GFR (Non-Af Amer) (>60) BUN/Creatinine Ratio (8-20) Glucose (70-100) mg/dL Calcium (8.6-10.3) mg/dL Total Bilirubin (0.2-1.0) mg/dL AST (13-39) U/L ALT (7-52) U/L Alkaline Phosphatase (34-104) U/L Troponin I 0.03 (<0.04) ng/mL B-Natriuretic Peptide ( - 100) pg/mL Total Protein (6.4-8.9) g/dL Albumin (3.2-5.2) g/dL Globulin (2-4) g/dL Albumin/Globulin Ratio (1-3) Lipase (11.0-82.0) U/L ECG, personally reviewed: NSR rate 69, no ischemia CXR, personally reviewed: interstitial edema, similar to previous CT brain WO, personally reviewed: IMPRESSION: No acute intracranial pathology. CT abd/pel WO, personally reviewed: IMPRESSION: No acute CT pathology. 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, anemia of renal disease presents with N/V/D suspicious for viral gastroenteritis as well as HTN urgency requiring IV nicardipine GTT DIAGNOSIS & PLAN Primary HTNive urgency : ICU monitoring : nicardipine GTT w/ parameters : continue outpatient anti-HTN regimen : supplemental oxygen : supportive care N/V/D, suspect viral AGE : hemetemesis, likely Jo-Florian : anti-emetics : no indication for IVFs at this time given severe HTN, monitor needs R plantar diabetic foot ulcer : IV vancomycin, cefepime, & metronidazole : blood, wound CXs : MRI foot to eval for osteomyelitis : consider surgical consultation for debridement pending above Secondary CKD stg V : consider nephrology consult, if needed inpt 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 : A1c 8.03 May 2018 : clear liquid diet advance to insulin carb ratio when able : Q4H glucometry w/ basal/correctional insulin : add AC bolus dosing/ACHS glucometry when able to advance diet anemia of renal disease : no acute issues, periodic monitoring Admission Rational: Inpatient as without the above interventions the risk of impending adverse outcome is unacceptably high; inappropriate for the outpatient setting DVTp: SCDs, no heparin 2nd mild hematemesis Code Status: full HCP: sisterMeggan Critical Care time: 50minutes with >50% spent at the bedside obtaining a history , performing the examination, advising of diagnosis & treatment options along with risks/benefits/reasoning; remainder spent discussing with ER MD, reviewing labs and radiology exams, performing documentation
[2018-07-02] MEDS ORDERED: Acetaminophen TAB* 325 MG PO PRN (01:34)
[2018-07-02] MEDS ORDERED: Ondansetron ODT TAB* 4 MG PO PRN (01:34)
[2018-07-02] MEDS ORDERED: hydrALAZINE IV* 20 MG/ML VIAL IV PRN (01:34)
[2018-07-02] MEDS ORDERED: Melatonin 3 MG TAB PO PRN (01:34)
[2018-07-02] MEDS ORDERED: Cefepime(*) 1 GM in NS 0.9% 50 ML* 50 ML IVPB SCH (02:00)
[2018-07-02] MEDS ORDERED: Vancomycin per Pharmacy* NOTE FOLLOW UP SCH (02:00)
[2018-07-02] MEDS ORDERED: Morphine VIAL* 4 MG/ML VIAL (1 ml vial) IV PRN (02:01)
[2018-07-02] MEDS ORDERED: PROCHLORPERAZINE INJ 5 MG/ML 2 ML VIAL IV PRN (02:01)
[2018-07-02] MEDS ORDERED: Ondansetron INJ* 2 MG/ML VIAL IV PRN (02:01)
[2018-07-02] MEDS ORDERED: Ondansetron INJ* 2 MG/ML VIAL ONE (02:06)
[2018-07-02] MEDS ORDERED: Morphine VIAL* 4 MG/ML VIAL (1 ml vial) IV ONE (02:06)
[2018-07-02] MEDS: Cefepime 1 GM in Dextrose(*) 1 GM/50 ML q12h (Duplex) IV SCH ×2 (02:27→14:51)
[2018-07-02] MEDS ORDERED: metroNIDAZOLE IV 500 MG/100ML* 500 MG/100 ML BAG IVPB SCH (02:30)
[2018-07-02] MEDS ORDERED: Vancomycin(*) 1,250 MG in NS 0.9% 250 ML* 250 ML IVPB ONE (03:00)
[2018-07-02] MEDS ORDERED: Pantoprazole IV* 40 MG IV ONE (04:15)
[2018-07-02 05:30] LABS: ABS Basophils 0 10^3/ul (0-0.2); ABS Eosinophils 0 10^3/ul (0-0.6); ABS Lymphocytes 0.6 10^3/ul (1.0-4.8); ABS Monocytes 0.2 10^3/ul (0-0.8); ABS Neutrophils 6.8 10^3/ul (1.5-7.7); ABS Nucleated RBC 0 10^3/ul; Eosinophil % 0.2 % (0-6); Hematocrit 31 % (42-52); Hemoglobin 9.7 g/dl (14.0-18.0); Lymphocyte % 7.7 % (25-47); Mean Corpuscular HGB Conc 32 g/dl (31-36); Mean Corpuscular Hemoglobin 27 pg (27-31); Mean Corpuscular Volume 85 fL (80-94); Mean Platelet Volume 7.8 um3 (7.4-10.4); Nucleated Red Blood Cells % 0; Platelet Count 154 10^3/ul (150-450); Red Blood Count 3.61 10^6/ul (4.00-5.40); Red Cell Distribution Width 17 % (10.5-15); White Blood Count 7.7 10^3/ul (3.5-10.8)
[2018-07-02 05:47] LABS: EGFR Non-African American 13.6 (>60)
[2018-07-02] MEDS ORDERED: Omeprazole CAP* 20 MG PO SCH (06:00)
[2018-07-02] MEDS: Insulin LISPRO* 1 UNITS UNIT SUBCUT SCH ×6 (06:08→20:55)
[2018-07-02] MEDS: niCARdipine 0.1MG/ML IVPREMIX* 20 MG/200 ML BAG IV SCH ×2 (06:09→07:17)
[2018-07-02] MEDS ORDERED: Pantoprazole IV* 80 MG in NS 0.9% 250 ML* 250 ML IVPB SCH (06:30)
--- NOTE | 2018-07-02 07:53 | RAD ---
INDICATION: Shortness of breath. COMPARISON: Most recent comparison chest x-rays dated June 25, 2018 TECHNIQUE: Single AP view of the chest was obtained. FINDINGS: The heart and mediastinum exhibit normal size and contour. The pulmonary vascular chair is mildly engorged and indistinct. The lungs are otherwise grossly clear. The costophrenic angles are adequately defined in the AP projection. Visualized bones are normal for the patient's age. IMPRESSION: THE CORRECT CLINICAL SETTING CHEST X-RAY FINDINGS COULD BE COMPATIBLE WITH MILD PULMONARY EDEMA. R1
[2018-07-02] MEDS: Furosemide TAB* 40 MG PO SCH ×2 (08:32→20:58)
[2018-07-02] MEDS: Gabapentin CAP(*) 300 MG PO SCH ×3 (08:32→20:59)
[2018-07-02] MEDS: Atorvastatin* 10 MG TAB PO SCH (08:32)
[2018-07-02] MEDS: Sodium Citrate/Citric Acid* 15 ML UDC PO SCH ×3 (08:32→20:54)
[2018-07-02] MEDS: Famotidine TAB* 20 MG PO SCH ×2 (08:32→20:58)
[2018-07-02] MEDS: Metoprolol Tartrate TAB* 25 MG PO SCH ×2 (08:33→20:59)
[2018-07-02] MEDS: Sertraline* 50 MG TAB PO SCH (08:35)
[2018-07-02] MEDS: Metolazone TAB* 5 MG PO SCH (08:36)
[2018-07-02] MEDS: Calcitriol CAP* 0.25 MCG PO SCH (08:36)
[2018-07-02] MEDS: Calcium Acetate CAP* 667 MG PO SCH ×3 (08:37→18:33)
[2018-07-02] MEDS: NIFEdipine ER TAB* 60 MG PO SCH (08:37)
--- NOTE | 2018-07-02 10:12 | PN ---
Subjective Date of Service: 07/02/18 Interval History: Pt stated that he wasn't taking his medications correctly due to not being able to see the instructions. His head started to hurt and he developed a "migraine" and subsequent n/v. No more vomiting today Objective Active Medications: Acetaminophen (Tylenol Tab*) 650 mg PO Q6H PRN PRN Reason: FEVER/PAIN Atorvastatin Calcium (Lipitor*) 10 mg PO DAILY [facility] Last Admin: 07/02/18 08:32 Dose: 10 mg Calcitriol (Rocaltrol Cap*) 0.5 mcg PO DAILY [facility] Last Admin: 07/02/18 08:36 Dose: 0.5 mcg Calcium Acetate (Phoslo Cap*) 667 mg PO AC [facility] Last Admin: 07/02/18 08:37 Dose: 667 mg Citric Acid/Sodium Citrate (Bicitra*) 15 ml PO TID [facility] Last Admin: 07/02/18 08:32 Dose: 15 ml Famotidine (Pepcid Tab*) 20 mg PO BID [facility]; Protocol Last Admin: 07/02/18 08:32 Dose: 20 mg Furosemide (Lasix Tab*) 60 mg PO BID [facility] Last Admin: 07/02/18 08:32 Dose: 60 mg Gabapentin (Neurontin Cap(*)) 300 mg PO TID [facility] Last Admin: 07/02/18 08:32 Dose: 300 mg Hydralazine HCl (Apresoline Iv*) 10 mg IV Q4H PRN PRN Reason: Systolic >170 Cefepime HCl (Maxipime 1 Gm In Dextrose Duplex (*)) 1 gm in 50 mls @ 100 mls/ hr IV Q12H [facility] Last Admin: 07/02/18 02:27 Dose: 100 mls/hr Insulin Glargine (Lantus(*)) 41 units 0.24 units/kg (41 units) SUBCUT 2100 [facility] Insulin Human Lispro (Humalog*) 0 units SUBCUT Q4H [facility]; Protocol Last Admin: 07/02/18 08:51 Dose: 2 units Melatonin (Melatonin) 3 mg PO BEDTIME PRN; Protocol PRN Reason: Sleep Metolazone (Zaroxolyn Tab*) 5 mg PO DAILY@0730 [facility] Last Admin: 07/02/18 08:36 Dose: 5 mg Metoprolol Tartrate (Lopressor Tab*) 12.5 mg PO Q12HR [facility] Last Admin: 07/02/18 08:33 Dose: 12.5 mg Morphine Sulfate (Morphine Vial*) 2 mg IV Q2H PRN PRN Reason: PAIN Last Admin: 07/02/18 02:11 Dose: 2 mg Nifedipine (Procardia Xl Tab*) 60 mg PO DAILY [facility] Last Admin: 07/02/18 08:37 Dose: 60 mg Ondansetron HCl (Zofran Inj*) 4 mg IV Q6H PRN PRN Reason: NAUSEA Pantoprazole Sodium (Protonix Iv*) 40 mg IV Q12H [facility] Pharmacy Consult (Vancomycin Per Pharmacy*) 1 note FOLLOW UP .VANC PER PHARMACY [facility] Prochlorperazine Edisylate (Compazine Inj*) 10 mg IV Q6H PRN PRN Reason: NAUSEA Sertraline HCl (Zoloft*) 50 mg PO DAILY [facility] Last Admin: 07/02/18 08:35 Dose: 50 mg Vital Signs - 8 hr 07/02/18 07/02/18 07/02/18 02:31 03:00 03:01 Temperature Pulse Rate 91 84 84 Respiratory 22 19 18 Rate Blood Pressure 129/74 116/66 (mmHg) O2 Sat by Pulse 90 90 91 Oximetry 07/02/18 07/02/18 07/02/18 03:15 03:20 03:31 Temperature Pulse Rate 87 Respiratory 24 17 Rate Blood Pressure 114/70 (mmHg) O2 Sat by Pulse 97 92 Oximetry 07/02/18 07/02/18 07/02/18 03:57 04:00 04:31 Temperature 98.7 F Pulse Rate 90 91 Respiratory 17 16 Rate Blood Pressure 128/75 139/79 (mmHg) O2 Sat by Pulse 93 95 Oximetry 07/02/18 07/02/18 07/02/18 05:00 05:01 05:31 Temperature Pulse Rate 87 87 87 Respiratory 16 17 13 Rate Blood Pressure 110/67 121/75 (mmHg) O2 Sat by Pulse 85 85 95 Oximetry 07/02/18 07/02/18 07/02/18 06:00 06:01 07:00 Temperature Pulse Rate 80 80 85 Respiratory 16 15 16 Rate Blood Pressure 109/65 (mmHg) O2 Sat by Pulse 94 94 96 Oximetry 07/02/18 07/02/18 07/02/18 07:01 07:29 07:31 Temperature 98.9 F Pulse Rate 83 81 Respiratory 16 18 Rate Blood Pressure 118/72 112/76 (mmHg) O2 Sat by Pulse 96 96 Oximetry 07/02/18 07/02/18 07/02/18 08:00 08:01 08:31 Temperature Pulse Rate 79 78 81 Respiratory 18 15 19 Rate Blood Pressure 113/70 118/67 (mmHg) O2 Sat by Pulse 95 95 93 Oximetry 07/02/18 07/02/18 09:00 09:30 Temperature Pulse Rate 97 79 Respiratory 25 15 Rate Blood Pressure 149/79 (mmHg) O2 Sat by Pulse 91 92 Oximetry Oxygen Devices in Use Now: None Appearance: 52 yo M in nAD, aAOx3 Eyes: No Scleral Icterus, PERRLA Ears/Nose/Mouth/Throat: NL Teeth, Lips, Gums, Mucous Membranes Moist Neck: NL Appearance and Movements; NL JVP, Trachea Midline Respiratory: Symmetrical Chest Expansion and Respiratory Effort, Clear to Auscultation Cardiovascular: NL Sounds; No Murmurs; No JVD, RRR Abdominal: NL Sounds; No Tenderness; No Distention, No Hepatosplenomegaly Lymphatic: No Cervical Adenopathy Extremities: No Clubbing, Cyanosis, - - b/l LE's s/p TMA Skin: No Nodules or Sclerosis, - - R bottom of foor ulcer -stage 3 at 5 cm in diam , bottom covered with slough, no infection, draining noted Neurological: Alert and Oriented x 3, NL Muscle Strength and Tone Result Diagrams: 07/02/18 05:15 07/02/18 05:15 Microbiology and Other Data: Microbiology 07/02/18 02:45 Skin and Soft Tissue MRSA/MSSA (PCR - Final Foot Right Mrsa Negative S.aureus Positive Gram Stain - Final 07/02/18 02:30 Nasal Screen MRSA (PCR) - Final Nasal Mrsa Not Detected 07/02/18 02:30 Gastric Occult Blood - Final Gastric Fluid Assess/Plan/Problems-Billing Assessment: Mr. Galo is a 52-year-old male patient with CKD stage V who presents after several admissions over the past couple of weeks withN/V, HTN urgency, heme+ vomitus - Patient Problems (1) Nausea & vomiting Comment: resolved, suspect due to headache that likely started due to uncontrolled HTN (2) Hypertension Comment: -off nicardipine gtt, BP better controlled - Continue nifedepine, metoprolol, lasix, and metolazone. (3) Metabolic acidosis Comment: - Continue bicitra per Dr. Ramirez TID (4) Chronic diastolic (congestive) heart failure Comment: - EF improved on recent ECHO 60-65% in 06/2018 - Continue lasix and metolazone. (5) Wound of right foot Comment: - MRI of R foot shows no osteo. cont Cefepime. ID will see tomorrow (6) Anemia of chronic disease Comment: -Relatively stable (7) CKD (chronic kidney disease) Comment: - at baseline - Continue lasix 60mg BID and metolazone 5mg (8) Diabetes Comment: cont ISS and Lantus (9) Hematemesis Comment: likely due to gastritis and possible mild Jo-Florian. will check Hb in aM, advance diet, no evidence of acute bleed cont pepcid (10) DVT prophylaxis Comment: - HSQ Status and Disposition: inpatient
--- NOTE | 2018-07-02 12:03 | RAD ---
INDICATION: Diabetic right foot ulcer. COMPARISON: Correlation is made with a prior MRI of the right foot from May 28, 2018 and a prior x-ray study of the right foot from May 25, 2018. TECHNIQUE: Axial, sagittal and coronal T1 and T2-weighted images of the right foot were obtained. The exam is limited due to motion artifact. FINDINGS: The patient is status post right foot amputation at the tarsometatarsal joint level. There is soft tissue swelling along the medial and inferior aspect of the foot. No focal bone marrow edema is seen. There is no evidence for osteomyelitis. No fluid collection or abscess is seen. IMPRESSION: POSTSURGICAL CHANGES AND SOFT TISSUE SWELLING, NO EVIDENCE FOR OSTEOMYELITIS.
[2018-07-02] MEDS: Pantoprazole IV* 40 MG IV SCH ×2 (12:10→20:55)
[2018-07-02] MEDS ORDERED: Potassium Chlor TAB* 20 MEQ TAB.ER PO ONE (14:01)
[2018-07-02] MEDS ORDERED: Insulin GLARGINE(*) 1 UNITS UNIT SUBCUT SCH (21:00)
[2018-07-03] MEDS: Cefepime 1 GM in Dextrose(*) 1 GM/50 ML q12h (Duplex) IV SCH ×2 (01:55→13:59)
[2018-07-03] MEDS ORDERED: Vancomycin Random Level* NOTE FOLLOW UP ONE (06:00)
[2018-07-03] MEDS ORDERED: Vancomycin(*) 1,500 MG in NS 0.9% 250 ML* 250 ML IVPB SCH (06:00)
[2018-07-03 06:52] LABS: ABS Basophils 0 10^3/ul (0-0.2); ABS Eosinophils 0.3 10^3/ul (0-0.6); ABS Lymphocytes 0.7 10^3/ul (1.0-4.8); ABS Monocytes 0.7 10^3/ul (0-0.8); ABS Neutrophils 4.5 10^3/ul (1.5-7.7); ABS Nucleated RBC 0 10^3/ul; Eosinophil % 5.6 % (0-6); Hematocrit 32 % (42-52); Hemoglobin 10.2 g/dl (14.0-18.0); Lymphocyte % 10.5 % (25-47); Mean Corpuscular HGB Conc 32 g/dl (31-36); Mean Corpuscular Hemoglobin 28 pg (27-31); Mean Corpuscular Volume 86 fL (80-94); Mean Platelet Volume 7.9 um3 (7.4-10.4); Nucleated Red Blood Cells % 0; Platelet Count 170 10^3/ul (150-450); Red Blood Count 3.69 10^6/ul (4.00-5.40); Red Cell Distribution Width 17 % (10.5-15); White Blood Count 6.2 10^3/ul (3.5-10.8)
[2018-07-03 07:15] LABS: EGFR Non-African American 11.7 (>60)
[2018-07-03] MEDS: Sodium Citrate/Citric Acid* 15 ML UDC PO SCH ×2 (08:41→14:00)
[2018-07-03] MEDS: Insulin LISPRO* 1 UNITS UNIT SUBCUT SCH ×3 (08:41→17:12)
[2018-07-03] MEDS: Metolazone TAB* 5 MG PO SCH (08:42)
[2018-07-03] MEDS: Gabapentin CAP(*) 300 MG PO SCH ×2 (08:42→13:59)
[2018-07-03] MEDS: Famotidine TAB* 20 MG PO SCH (08:42)
[2018-07-03] MEDS: Sertraline* 50 MG TAB PO SCH (08:43)
[2018-07-03] MEDS: Metoprolol Tartrate TAB* 25 MG PO SCH (08:43)
[2018-07-03] MEDS: Atorvastatin* 10 MG TAB PO SCH (08:43)
[2018-07-03] MEDS: Furosemide TAB* 40 MG PO SCH (08:43)
[2018-07-03] MEDS: Calcium Acetate CAP* 667 MG PO SCH ×3 (08:44→17:12)
[2018-07-03] MEDS: Calcitriol CAP* 0.25 MCG PO SCH (08:44)
[2018-07-03] MEDS: NIFEdipine ER TAB* 60 MG PO SCH (08:44)
[2018-07-03] MEDS ORDERED: Fluticasone NASAL SPRAY 50MCG* 16 gm SPRAY BTL BOTH NARES SCH (09:00)
--- NOTE | 2018-07-03 10:00 | PN ---
Subjective Date of Service: 07/03/18 Interval History: Pt had "one abd cramp" yesterday in pm that resolved after a hot pack was applied to the area. Today tolerating diet with no difficulties. Denies CP/SOB Objective Active Medications: Acetaminophen (Tylenol Tab*) 650 mg PO Q6H PRN PRN Reason: FEVER/PAIN Last Admin: 07/03/18 06:29 Dose: 650 mg Atorvastatin Calcium (Lipitor*) 10 mg PO DAILY [facility] Last Admin: 07/03/18 08:43 Dose: 10 mg Calcitriol (Rocaltrol Cap*) 0.5 mcg PO DAILY [facility] Last Admin: 07/03/18 08:44 Dose: 0.5 mcg Calcium Acetate (Phoslo Cap*) 667 mg PO AC [facility] Last Admin: 07/03/18 08:44 Dose: 667 mg Citric Acid/Sodium Citrate (Bicitra*) 15 ml PO TID [facility] Last Admin: 07/03/18 08:41 Dose: 15 ml Famotidine (Pepcid Tab*) 20 mg PO BID [facility]; Protocol Last Admin: 07/03/18 08:42 Dose: 20 mg Fluticasone Propionate (Flonase Nasal [place] 50mcg*) 2 spray BOTH NARES DAILY [facility] Last Admin: 07/03/18 08:59 Dose: 2 spray Furosemide (Lasix Tab*) 60 mg PO BID [facility] Last Admin: 07/03/18 08:43 Dose: 60 mg Gabapentin (Neurontin Cap(*)) 300 mg PO TID [facility] Last Admin: 07/03/18 08:42 Dose: 300 mg Hydralazine HCl (Apresoline Iv*) 10 mg IV Q4H PRN PRN Reason: Systolic >170 Cefepime HCl (Maxipime 1 Gm In Dextrose Duplex (*)) 1 gm in 50 mls @ 100 mls/ hr IV Q12H [facility] Last Admin: 07/03/18 01:55 Dose: 100 mls/hr Insulin Glargine (Lantus(*)) 41 units 0.24 units/kg (41 units) SUBCUT 2100 [facility] Last Admin: 07/02/18 20:57 Dose: 41 units Insulin Human Lispro (Humalog*) 0 units SUBCUT ACHS [facility]; Protocol Last Admin: 07/03/18 08:41 Dose: 6 unit Melatonin (Melatonin) 3 mg PO BEDTIME PRN; Protocol PRN Reason: Sleep Metolazone (Zaroxolyn Tab*) 5 mg PO DAILY@0730 [facility] Last Admin: 07/03/18 08:42 Dose: 5 mg Metoprolol Tartrate (Lopressor Tab*) 12.5 mg PO Q12HR [facility] Last Admin: 07/03/18 08:43 Dose: 12.5 mg Morphine Sulfate (Morphine Vial*) 2 mg IV Q2H PRN PRN Reason: PAIN Last Admin: 07/02/18 02:11 Dose: 2 mg Nifedipine (Procardia Xl Tab*) 60 mg PO DAILY [facility] Last Admin: 07/03/18 08:44 Dose: 60 mg Ondansetron HCl (Zofran Inj*) 4 mg IV Q6H PRN PRN Reason: NAUSEA Pantoprazole Sodium (Protonix Iv*) 40 mg IV Q12H [facility] Last Admin: 07/02/18 20:55 Dose: 40 mg Prochlorperazine Edisylate (Compazine Inj*) 10 mg IV Q6H PRN PRN Reason: NAUSEA Sertraline HCl (Zoloft*) 50 mg PO DAILY [facility] Last Admin: 07/03/18 08:43 Dose: 50 mg Vital Signs - 8 hr 07/03/18 07/03/18 07/03/18 03:22 07:29 08:00 Temperature 98.2 F 97.8 F Pulse Rate 65 73 Respiratory 19 16 18 Rate Blood Pressure 133/68 134/65 (mmHg) O2 Sat by Pulse 96 97 Oximetry 07/03/18 08:42 Temperature Pulse Rate Respiratory 18 Rate Blood Pressure (mmHg) O2 Sat by Pulse Oximetry Oxygen Devices in Use Now: Nasal Cannula Appearance: 52 yo M in nAD, AAOx3 Eyes: No Scleral Icterus, PERRLA Ears/Nose/Mouth/Throat: NL Teeth, Lips, Gums, Mucous Membranes Moist Neck: NL Appearance and Movements; NL JVP, Trachea Midline Respiratory: Symmetrical Chest Expansion and Respiratory Effort, Clear to Auscultation Cardiovascular: NL Sounds; No Murmurs; No JVD, RRR Abdominal: NL Sounds; No Tenderness; No Distention Lymphatic: No Cervical Adenopathy Extremities: No Edema, No Clubbing, Cyanosis, - - s/p TMA b/l stumps healed well Skin: No Nodules or Sclerosis, - - R foot ulcer stage 3 at 5 cm in diam bottom covered with slough, some serous drainage noted, no cellultis Neurological: Alert and Oriented x 3, NL Muscle Strength and Tone Result Diagrams: 07/03/18 06:22 07/03/18 06:22 Microbiology and Other Data: Microbiology 07/02/18 02:45 Skin and Soft Tissue MRSA/MSSA (PCR - Final Foot Right Mrsa Negative S.aureus Positive Gram Stain - Final 07/02/18 02:30 Nasal Screen MRSA (PCR) - Final Nasal Mrsa Not Detected 07/02/18 02:30 Gastric Occult Blood - Final Gastric Fluid Assess/Plan/Problems-Billing Assessment: Mr. Galo is a 52-year-old male patient with CKD stage V who presents after several admissions over the past couple of weeks withN/V, HTN urgency, heme+ vomitus - Patient Problems (1) Nausea & vomiting Comment: resolved, suspect due to headache that likely started due to uncontrolled HTN (2) Hypertension Comment: - controlled - Continue nifedepine, metoprolol, lasix, and metolazone. (3) Metabolic acidosis Comment: - Continue bicitra per Dr. Ramirez [facility] (4) Chronic diastolic (congestive) heart failure Comment: - EF improved on recent ECHO 60-65% in 06/2018 - Continue lasix and metolazone. (5) Wound of right foot Comment: - MRI of R foot shows no osteo. cont Cefepime. ID will see today. Also one of blood cx bottles positive for GPC-contamination? (6) Anemia of chronic disease Comment: -Relatively stable (7) CKD (chronic kidney disease) Comment: - at baseline - Continue lasix 60mg BID and metolazone 5mg (8) Diabetes Comment: cont ISS and Lantus (9) Hematemesis Comment: likely due to gastritis and possible mild Jo-Florian. Resolved no need for further investigation at this point cont pepcid (10) DVT prophylaxis Comment: ambulation Status and Disposition: inpatient
[2018-07-03] MEDS: Pantoprazole IV* 40 MG IV SCH (10:25)
[2018-07-03 16:04] VITALS: BP 168/88
--- NOTE | 2018-07-04 12:55 | DS ---
CC: Dr. Morrison; Dr. Ramirez; Dr. Martinez; Dr. Galarza, [facility] * DISCHARGE SUMMARY: DATE OF ADMISSION: 07/02/18. DATE OF DISCHARGE: 07/03/18. PRIMARY CARE PROVIDER: Dr. Morrison. VIBRATION TECHNICIAN: Dr. Ramirez. DISCHARGE DIAGNOSES: 1. Hypertensive urgency due to medical noncompliance. 2. Intractable nausea and vomiting secondary to headache, that was likely related to uncontrolled hypertension. 3. Chronic right foot ulcer. 4. Blood culture is positive for Strep viridans obtained on 07/02/18, likely contamination. SECONDARY DIAGNOSES: 1. Worsening of chronic kidney disease, stage 4 to 5. 2. Diabetes. 3. History of bilateral tarsometatarsal foot amputation. 2. Hypertension. 4. Anemia of renal disease. 5. Chronic right foot ulcer. MEDICATIONS AT DISCHARGE: Include: 1. Gabapentin 300 mg 3 times a day. 2. Insulin Novolin 10 units subcutaneously with each meal. 3. Procardia XL 60 mg daily. 4. Zantac 150 mg b.i.d. 5. Zoloft 50 mg daily. 6. Zocor 20 mg daily. 7. Acetaminophen on a p.r.n. basis. 8. Calcitriol 0.25 mcg daily. 9. PhosLo 667 mg with each meals. 10. Keflex 500 mg b.i.d. for a total of 2 weeks. 11. Lasix 40 mg b.i.d. 12. Insulin glargine 45 units daily. 13. Probiotics 1 to 2 capsules daily. 14. Metoprolol tartrate 4.5 mg twice a day. 15. Bicitra 15 mL 3 times a day. The patient was advised to have blood drawn for BMP, magnesium, phosphorus and CBC levels to be obtained on 07/09/18. The patient is recommended to followup with Dr. Ramirez with a scheduled appointment on 07/11/18, at 11:30 a.m. The patient is to followup with Dr. Morrison, on 07/05/18, at 3 p.m. The patient is also set up with visiting nurse association for a followup. LABORATORY DATA AND STUDIES PERFORMED DURING THE HOSPITAL STAY: On 07/03/18, white blood cell count of 6.2, hemoglobin 10.2, hematocrit 32, and platelets 170. On 07/03/18, sodium 139, potassium 3.4, chloride 100, carbon dioxide 29, BUN 47, creatinine 5.22. Hemoglobin A1c obtained on 05/23/18, was 8.2. Microbiology test show blood culture is positive 1 out of 4 bottles for Strep viridans. MRI of the right lower extremity obtained on 07/02/18, impression: "With surgical changes of soft tissue swelling with no evidence for osteomyelitis." HOSPITALIZATION COURSE: Tanner Galo is a 52-year-old male, who presented to the hospital on 07/02/18 with intractable nausea and vomiting due to migraine headache that he has had for the past 2 to 3 days. He stated that he was seen in the hospital on 06/26/18 and at that point, his medications and diuretics were changed. Unfortunately, he has problems with his vision and he was unable to read the medication labels and he was taking them incorrectly. When he came into the hospital his systolic pressures was 223. He complained of severe headache, and nausea, and vomiting. He had a brain CT obtained at admission, which was unremarkable. His chest x-ray showed possible pulmonary edema. He also had CT of the abdomen and pelvis on 07/01/18, which showed "no acute CT pathology." The patient was admitted to the intensive care unit on a nicardipine drip. His p.o. medications were reinstituted. By the next morning, his blood pressure was well controlled. Nicardipine drip was able to be discontinued. His headache resolved as well as nausea and vomiting. He was able to tolerate diet and he complained of no abdominal pain apart from one episode of abdominal cramping that resolved spontaneously. Due to his history of chronic right foot ulcer, an MRI of the lower extremity was obtained, which showed no evidence of osteomyelitis. Also patient's inflammatory markers were rather low at 8.26. The patient was initially placed on broad-spectrum antibiotics that was discontinued at discharge. After reinstitution of his diuretics as well as his blood pressure medications, the patient's creatinine slightly increased from 4.6 on 07/02/18 to 5.22 on the day of discharge. The patient has a history of creatinine in the range of 5 in the past couple of months. I discussed the case with Dr. Ramirez, who will follow up with the patient as outpatient as above mentioned. At this point, I will also lower the patient's dose of Lasix from 60 mg twice a day to 40 mg twice a day and his metolazone was discontinued. In regards to the patient's chronic right foot ulceration, I discussed the case with Dr. Martinez. The patient is going to be prescribed another 2 weeks worth of Keflex for treatment of chronic wound in the right foot. There was no evidence of osteomyelitis on MRI. At discharge, I had had a discussion with the patient regards to adherence to his medications as well as renal and diabetic diet. The patient is aware that he is nearing dialysis and he needs to really control his blood pressure and sugars to avoid that in the near future. The patient is set up with visiting nurse association that will see the patient the day after discharge for followup with his medications and making sure the patient correctly takes his medications. PHYSICAL EXAMINATION AT THE TIME OF DISCHARGE: Blood pressure of 138/76, heart rate of 63 and regular, respiratory rate 18, oxygen saturation 100% on room air , temperature 98.3. General: This is a very pleasant 52-year-old male, who is in no acute distress. Alert, awake, and oriented x3. HEENT: Head, atraumatic , normocephalic. Eyes: Pupils are equal, reactive to light and accommodation. Oropharynx clear. Mucosa moist. Neck: Supple. No JVD, no bruits bilaterally. Cardiovascular: Regular rate and rhythm. No murmur. Respiratory : Clear to auscultation bilaterally. Abdomen: Soft, nontender. Bowel sounds are present in all 4 quadrants. Extremities: There is trace bilateral ankle edema. Pulses are +2 bilaterally. There is no clubbing or cyanosis. On evaluation of the stumps, the patient is status post TMA amputations of bilateral feet with no evidence of stump problems. He does have a chronic wound on the bottom of his right foot. This is approximately 10 x 4 cm. The ulcer is stage 3. The bottom of the ulcer is covered with slough. There is no evidence of cellulitis and there is scant serous drainage noted. At discharge, the patient is recommended to follow up with Dr. Ramirez as mentioned above. The patient is also going to follow up with his primary care provider as mentioned above. The patient is to followup with Dr. Galarza as well as wound care center as previously scheduled. Please note that this is a short summary of the patient's hospitalization. Please refer to further medical records for details. TIME SPENT: Approximately 35 minutes was spent on the patient's discharge. [id number]/[facility] #: [id number] KEDAR
== END 2018-07-03 17:45 | disposition home or self-care (01) ==
LOC: ED 17:41 → INTOOBSV 07-02 01:22 → ICU 07-02 01:22 → MED 07-02 16:59
PROVIDERS: ADMIT Hospitalist; ATTEND Internal Medicine
DX: I16.0 Hypertensive urgency (principal); Z91.14 Patient's other noncompliance with medication regimen; R11.2 Nausea with vomiting, unspecified; R51 Headache; L97.519 Non-pressure chronic ulcer of other part of right foot with unspecified severity; E11.22 Type 2 diabetes mellitus with diabetic chronic kidney disease; I12.9 Hypertensive chronic kidney disease with stage 1 through stage 4 chronic kidney disease, or unspecified chronic kidney disease; D63.1 Anemia in chronic kidney disease; N18.4 Chronic kidney disease, stage 4 (severe); Z89.432 Acquired absence of left foot; Z89.431 Acquired absence of right foot; Z87.891 Personal history of nicotine dependence
CPT/HCPCS: 36415; 70450; 71045; 74176; 80048; 80053; 82271; 83605; 83690; 83880; 84145; 84156; 84484; 85025; 86140; 87040; 87070; 87077; 87205; 87640; 87641; 93005; 99285; A9270-GY; G0378; J0360; J0692; J0780; J2270; J2405; J3370; J3490

== ENCOUNTER 2018-07-05 23:26 | Emergency (ER) | payer MEDICARE, MEDICAID ==
[2018-07-06] MEDS ORDERED: Labetalol IV* 5 MG/ML 20 ML VIAL IV PUSH ONE (00:15)
[2018-07-06] MEDS ORDERED: Acetaminophen TAB* 325 MG PO ONE (00:16)
[2018-07-06] MEDS ORDERED: diPHENhydraMINE IV* 50 MG/ML 1 ml VIAL (BENADRYL) IV ONE (00:16)
[2018-07-06] MEDS ORDERED: Metoclopramide IV* 5 MG/ML 2 ML VIAL IV ONE (00:16)
--- NOTE | 2018-07-06 01:11 | ED ---
Headache - HPI Summary HPI Summary: Patient complains of elevated blood pressure and frontal headache with associated nausea starting at 7 PM today. Recent discharge from [facility] 07/04/18 for hypertensive urgency due to noncompliance, headache with intractable N/V. Patient stated he was free of headache until today. Also states he has been compliant with his hypertension medications starting yesterday. Has follow-up appointment 07/09/[address] Hair. Denies fever, neck stiffness or pain, vision change, focal deficits, ams, cough, sore throat, CP, SOB, N/V/D, abdominal pain, change in urine, change in BM. Medical history CHF, DM, CK D, COPD, HTN, anemia. Elevated blood pressure 215/114 in triage. - History Of Current Complaint Chief Complaint: EDHeadache Stated Complaint: HEADACHE Time Seen by Provider: 07/05/18 23:57 Hx Obtained From: Patient Onset/Duration: Sudden Onset Initially Headache Was: Moderate, Severe Currently Pain Is: Severe Timing: Constant Character: Throbbing Location of Headache: Frontal Aggravating Factor: Nothing Allevating Factors: Nothing Associated Signs And Symptoms: Nausea - Allergies/Home Medications Allergies/Adverse Reactions: Allergies Allergy/AdvReac Type Severity Reaction Status Date / Time peanut Allergy Rash Verified 07/05/18 23:52 peanut oil Allergy Rash Verified 07/05/18 23:52 spinach Allergy "My tongue Verified 07/05/18 23:52 swells up and I can't breathe." strawberry Allergy "My tongue Verified 07/05/18 23:52 swells right up." sulfamethoxazole Allergy "I don't Verified 07/05/18 23:52 [From Bactrim] know ... lips swelled up." trimethoprim [From Bactrim] Allergy "I don't Verified 07/05/18 23:52 know ... lips swelled up." PMH/Surg Hx/FS Hx/Imm Hx Endocrine/Hematology History: Reports: Hx Diabetes, Hx Anemia Denies: Hx Blood Transfusions, Hx Systemic Lupus Erythematosus, Hx Thyroid Disease, Other Endocrine/Hematological Disorders Cardiovascular History: Reports: Hx Angina, Hx Coronary Artery Disease, Hx Hypercholesterolemia, Hx Hypertension, Hx Peripheral Vascular Disease Denies: Hx Congestive Heart Failure, Hx Myocardial Infarction, Hx Pacemaker/ ICD, Hx Valvular Heart Disease Respiratory History: Reports: Hx Sleep Apnea - suspected, Other Respiratory Problems/Disorders - COPD Denies: Hx Asthma, Hx Chronic Obstructive Pulmonary Disease (COPD) - home O2 , does not use, Hx Cystic Fibrosis, Hx Lung Cancer, Hx Pleural Effusion, Hx Pneumonia, Hx Pulmonary Edema, Hx Pulmonary Embolism, Hx Seasonal Allergies GI History: Reports: Hx Gastroesophageal Reflux Disease Denies: Hx Ulcer History: Reports: Hx Chronic Renal Failure, Hx Kidney Stones - possibly 2017 per Pt, Other Problems/Disorders - CKD Denies: Hx Acute Renal Failure, Hx Dialysis, Hx Kidney Infection, Hx Renal Disease Musculoskeletal History: Reports: Other Musculoskeletal History - 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 L achilles tendon remove Denies: Hx Rheumatoid Arthritis Sensory History: Reports: Hx Cataracts, Other Sensory Impairments - peripheral neuropathies Denies: Hx Contacts or Glasses, Hx Hearing Aid Opthamlomology History: Reports: Hx Cataracts, Other Sensory Impairments - peripheral neuropathies Denies: Hx Contacts or Glasses Neurological History: Reports: Hx Headaches, Hx Migraine, Hx Nerve Disease, Other Neuro Impairments/Disorders - Hx Pre syncope, phantom toe pain left foot, yousuf numb/tingling feet Denies: Hx Dementia, Hx Developmental Delay, Hx Seizures, Hx Spinal Cord Injury, Hx Transient Ischemic Attacks (TIA) Psychiatric History: Reports: Hx Anxiety - PRN LORAZEPAM, Hx Eating Disorder, Hx Depression Denies: Hx Panic Disorder, Hx Inpatient Treatment - Cancer History Hx Chemotherapy: No Hx Radiation Therapy: No Hx Palliative Cancer Treatment: No - Surgical History Surgery Procedure, Year, and Place: right big toe amputation, - ALL REMOVED NOW (11/2017). CATARACT WITH LENS IMPLANTS - BY DR DENNEY. 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 Hx Anesthesia Reactions: No Infectious Disease History: Yes Infectious Disease History: Reports: Hx of Known/Suspected MRSA - [facility], Chest, 2005 Denies: Hx Hepatitis, Hx Human Immunodeficiency Virus (HIV), History Other Infectious Disease, Traveled Outside the [place] in Last 30 Days - Family History Known Family History: Positive: Diabetes Negative: Cardiac Disease - Social History Alcohol Use: None Hx Substance Use: No Substance Use Type: Reports: None Substance Use Comment - Amount & Last Used: CHEWING TOBACCO Hx Tobacco Use: Yes Smoking Status (MU): Former Smoker Type: Smokeless Tobacco Amount Used/How Often: quit in 2009 Length of Time of Smoking/Using Tobacco: <1 PPD x 26 Years Have You Smoked in the Last Year: No Review of Systems Constitutional: Negative Positive: Photophobia ENT: Negative Cardiovascular: Negative Respiratory: Negative Positive: Nausea Genitourinary: Negative Musculoskeletal: Negative Skin: Negative Positive: Headache Psychological: Normal All Other Systems Reviewed And Are Negative: Yes Physical Exam Triage Information Reviewed: Yes Vital Signs On Initial Exam: Initial Vitals Temp Pulse Resp BP Pulse Ox 98.5 F 80 16 215/114 98 07/05/18 23:43 07/05/18 23:43 07/05/18 23:43 07/05/18 23:43 07/05/18 23:43 Vital Signs Reviewed: Yes Appearance: Positive: Well-Appearing Skin: Positive: Warm Head/Face: Positive: Normal Head/Face Inspection Eyes: Positive: Normal Neck: Positive: Supple Respiratory/Lung Sounds: Positive: Clear to Auscultation Cardiovascular: Positive: Normal Abdomen Description: Positive: Nontender Musculoskeletal: Positive: Normal Neurological: Positive: Normal Psychiatric: Positive: Normal AVPU Assessment: Alert - Bruno Coma Scale Best Eye Response: 4 - Spontaneous Best Motor Response: 6 - Obeys Commands Best Verbal Response: 5 - Oriented Coma Scale Total: 15 Diagnostics - Vital Signs Vital Signs Temp Pulse Resp BP Pulse Ox 07/06/18 00:56 79 18 175/90 98 07/06/18 00:26 74 198/102 93 07/06/18 00:01 84 98 07/06/18 00:00 84 96 07/05/18 23:57 215/115 07/05/18 23:55 84 97 07/05/18 23:43 98.5 F 80 16 215/114 98 - Laboratory Lab Statement: Any lab studies that have been ordered have been reviewed, and results considered in the medical decision making process. Headache Course/Dx - Course Course Of Treatment: Patient complains of elevated blood pressure and frontal headache with associated nausea starting at 7 PM today. Recent discharge from [facility] 07/04/18 for hypertensive urgency due to noncompliance, headache with intractable N/V. Patient stated he was free of headache until today. Also states he has been compliant with his hypertension medications starting yesterday. Has follow-up appointment 07/09/[address] Hair. Denies fever, neck stiffness or pain, vision change, focal deficits, ams, cough, sore throat, CP, SOB, N/V/D, abdominal pain, change in urine, change in BM. Medical history CHF, DM, CK D, COPD, HTN, anemia.Elevated blood pressure 215/114 in triage. Physical exam unremarkable. Blood pressure within normal limits after labetalol 20 mg IV. Patient states headache improved with migraine cocktail from 07/11-02/08. Patient given additional Fioricet by mouth. Follow-up with primary care. Advised compliance with hypertension medications. - Diagnoses Provider Diagnoses: Hypertension, Headache Discharge - Sign-Out/Discharge Documenting (check all that apply): Patient Departure - Discharge Plan Condition: Stable Disposition: HOME Patient Education Materials: Acute Headache (ED), Hypertension (ED) Referrals: Siddhartha Morrison DO [Primary Care Provider] - Additional Instructions: Take her hypertension meds as prescribed. Follow-up with primary care. Return to the ED for any new or worsening symptoms - Billing Disposition and Condition Condition: STABLE Disposition: Home
[2018-07-06] MEDS ORDERED: Butalb/Acetamin/Caff TAB* 1 TAB PO ONE (01:33)
[2018-07-06 03:31] VITALS: BP 177/91
== END 2018-07-06 04:03 | disposition home or self-care (01) ==
LOC: ED 23:26
DX: I10 Essential (primary) hypertension (principal); R51 Headache; R11.0 Nausea; Z87.891 Personal history of nicotine dependence
CPT/HCPCS: 96374; 96375; 99283; A9270-GY; J1200; J2765

== ENCOUNTER 2018-08-10 14:15 | Inpatient (IN) | payer MEDICARE, MEDICAID ==
[2018-08-10] MEDS ORDERED: Ondansetron ODT TAB* 4 MG PO ONE (14:46)
[2018-08-10] MEDS ORDERED: LORazepam TAB(*) 1 MG PO ONE (14:46)
--- OUTSIDE RECORDS SUMMARY | 2018-08-10 15:16 | XMS REPORT ---
:1965 External Reference #:[id number] Author Organization [employer] Address [address] [place] [address] [place] [address] Phone [phone] Care Team Providers Name Role Phone Siddhartha Morrison D.O. Primary Care Physician Unavailable Payers Type Date Identification Numbers Payment Provider Subscriber Medicare Primary Effective: Policy Number: Medicare Ammon Galo 2011 [id number] PayID: [id number] [address] [place] [address] Medigap Part B Policy Number: [id number] Medicaid Ammon Galo PayID: [id number] [address] [place] [address] Problems Date Description Provider Status Onset: 12/01/2015 [...] Form Strength Qnty SIG Indications Ordering Provider Gabapentin 07/11 Active Capsules 300mg 60cap take one M86.671 s capsule twice Geovanni, a day M.D. Procardia XL Active Tablets ER 30mg 90tab every day by 24HR s mouth Lisinopril-Hyd Active Tablets 20-25mg 30tab 1 po daily Unknown rochlorothiaz s de Novolin R Active Solution 100Unit/M sliding scale Unknown /0000 L as needed Vitamin B12 Active Tablets ER 1 by mouth Unknown / every day Basaglar Active Solution 100Unit/M Inject 64 Unknown Kwik Pen-Inject L Units Beneath The Skin Daily AT Bedtime Furosemide Active Tablets 40mg 1 by mouth Unknown bid Keflex 04/17 Hx Capsules 500mg 30cap 1 by mouth L97.518 s three times a Geovanni, - day M.D. 07/11 Levofloxacin 02/27 Hx Tablets 500mg 14tab 1 by mouth Z86.19 s every day May Martinez 04/16 M.D. Keflex 01/04 Hx Capsules 500mg 40cap Take one s tablet by Geovanni, - mouth every 6 M.D. 02/26 hours for days. Take with food. Levofloxacin 12/28 Hx Tablets 750mg 14tab one per day M86.671 s Geovanni, - M.D. 02/26 Oxycodone HCL 10/26 Hx Capsules 5mg 30cap Take 1 to 2 s tablets by Geovanni, - mouth every M.D. 10/26 4-6 hours needed for pain. Oxycodone HCL 10/26 Hx Tablets 5mg 30tab 1 tab by Robert s mouth every Geovanni, - 4-6 hours for M.D. 02/05 pain. Oxycodone HCL 01/26 Hx Tablets 10mg 40tab 1 tab by Robert s mouth q4 h as Geovanni, - needed pain M.D. 04/01 Levofloxacin 01/12 Hx Tablets 500mg 14tab 1 by mouth s every day May Martinez 01/26 M.D. Vancomycin HCL 12/02 Hx Solution 1500mg QS iv every 24 Rec hours through D. - [facility] Donnie, 12/19 home infusion M.D. Ceftriaxone 12/02 Hx Solution 2gm iv every Rec hours through D. - [facility], 01/26 Home Infusion M.D. Bactrim DS 12/21 Hx Tablets 800-160mg 42tab 1 by mouth s three times a D. - day Donnie 01/11 M.D. Tradjenta Hx Tablets 10mg 90tab 1 po qd s - 01/10 Depo-Testoster Hx Oil 200mg/ml as directed Unknown subQ - 11/[address] 20mg 90cap every day by s mouth - 04/16 Oxygen Hx 2LPM as directed at night - 01/10 Vancomycin HCL 11/10 Hx Solution 1500mg QS iv every 12 Rec hours x 42 D. - days through Donnie, 12/14 Aci .D Ciprofloxacin 11/03 Hx Tablets 750mg 84tab 1 by mouth s twice a day x D. - 42 days Donnie, 12/21 (start this .D when you start IV antibiotic infusions) Lisinopril Hx Tablets 10mg 30tab 1 po qd Unknown /0000 s - 04/23 Amlodipine Hx Tablets 5mg 90tab 1 po qd Unknown Besylate /0000 s - 04/23 Lantus 0000 Hx Solution 100Unit/M 6Vial sliding scale Unknown /0000 L s - 04/23 Humulin R 00 Hx Solution 100Unit/M 1unit siding scale Unknown /0000 L s - 04/23 Doxycycline Hx Capsules 100mg 14cap Unknown Hyclate /0000 s - 11/10 Bydureon 00 Hx Suspension 2mg 4unit inject Unknown /0000 Rec s contents of 1 - vial 02/26 subcutaneousl y every 7 days Lantus 0000 Hx Solution 100Unit/M 2vial as directed Unknown /0000 L s - Benadryl Hx Tablets 25mg as needed Unknown Allergy /0000 - 01/10 Vancomycin HCL Hx Solution 1000mg iv every 24 Unknown /0000 Rec hours - 12/21 Truejayo Hx SQ once daily SQ Unknown /0000 - 02/05 Zosyn Hx Solution 10.125gm continuous Unknown /0000 Rec infusion x 14 - days through 03/26 Aci /2017 Tums Hx Chewtabs 500mg 2 chewtabs by Unknown /0000 mouth as - needed 04/16 Gabapentin Hx Capsules 300mg take 1 Unknown /0000 capsule by - mouth three 06/18 times a day /2018 Immunizations CPT Code Status Date Vaccine Lot # [id number] Given 12/01/2015 Fluvirin Im 3Yrs And Older Vital Signs Date Vital Result Comment 08/08/2018 Height 75.75 inches 6'3.75" Weight 402.00 lb BP Systolic 134 mmHg BP Diastolic 86 mmHg Body Temperature 98.6 F BMI (Body Mass Index) 49.3 kg/m2 07/27/2018 Heart Rate 72 /min Respiratory Rate 16 /min Pain Level 0 07/18/2018 Height 75.75 inches 6'3.75" Weight 402.00 lb BP Systolic Sitting 128 mmHg BP Diastolic Sitting 80 mmHg Respiratory Rate 17 /min Pain Level 0 BMI (Body Mass Index) 49.3 kg/m2 07/11/2018 Height 75.75 inches 6'3.75" Weight 402.00 lb BP Systolic Sitting 142 mmHg BP Diastolic Sitting 78 mmHg Respiratory Rate 17 /min Pain Level 0 BMI (Body Mass Index) 49.3 kg/m2 06/19/2018 Height 75.75 inches 6'3.75" Weight 402.00 lb Heart Rate 64 /min BP Systolic Sitting 142 mmHg BP Diastolic Sitting 82 mmHg Pain Level 0 O2 % BldC Oximetry 89 % Room Air BMI (Body Mass Index) 49.3 kg/m2 04/17/2018 Height 75.75 inches 6'3.75" Weight 350.00 lb Heart Rate 76 /min BP Systolic 168 mmHg BP Diastolic 100 mmHg Respiratory Rate 12 /min Body Temperature 97.1 F Pain Level 0 BMI (Body Mass Index) 42.9 kg/m2 03/20/2018 Height 75.75 inches 6'3.75" Heart Rate 86 /min BP Systolic 142 mmHg BP Diastolic 76 mmHg Respiratory Rate 17 /min Body Temperature 97.8 F Pain Level 5 02/27/2018 Height 75.75 inches 6'3.75" Weight 363.00 lb Heart Rate 96 /min BP Systolic Sitting 154 mmHg BP Diastolic Sitting 82 mmHg Respiratory Rate 14 /min Body Temperature 98.2 F BMI (Body Mass Index) 44.5 kg/m2 02/14/2018 Height 75.75 inches 6'3.75" Weight 360.00 lb Heart Rate 86 /min BP Systolic Sitting 136 mmHg BP Diastolic Sitting 80 mmHg Respiratory Rate 16 /min Pain Level 0 BMI (Body Mass Index) 44.1 kg/m2 01/25/2018 Height 75.75 inches 6'3.75" Weight 363.00 lb BP Systolic 132 mmHg BP Diastolic 76 mmHg Respiratory Rate 20 /min Body Temperature 97.6 F Pain Level 7 BMI (Body Mass Index) 44.5 kg/m2 01/11/2018 Height 75.75 inches 6'3.75" Weight 363.00 lb Heart Rate 65 /min BP Systolic 128 mmHg BP Diastolic 82 mmHg Respiratory Rate 18 /min Body Temperature 97.1 F Pain Level 0 BMI (Body Mass Index) 44.5 kg/m2 01/02/2018 Height 75.75 inches 6'3.75" Heart Rate [...] 02/13/2017 C Reactive Protein 15.84 mg/L High < 5.00 2, 4 CBC Auto Diff 02/06/2017 [...] Care Glucose 118 mg/dL High 74 -106 7 Electrolytes 01/23/2017 [...] 8 Inr/Protime 01/23/2017 Inr 1.13 High 0.89-1.11 Laboratory test finding 01/23/2017 Point of Care 203 mg/dL High 74-106 9 Glucose CBC Auto Diff 01/09/2017 White Blood Count [...] Blood Cells % 0 13 Laboratory test finding 01/02/2017 C Reactive Protein 26.73 mg/L High < 5.00 13, 14 Comp Metabolic Panel 01/02/2017 Sodium 134 mmol/L [...] 12/27/2016 C Reactive Protein 21.08 mg/L High < 5.00 17 CBC Auto Diff 12/12/2016 White [...] Egfr 29.9 >60 18, 19 Laboratory test finding 12/12/2016 C Reactive Protein 139.43 mg/L High < 5.00 18, 20 Basic Metabolic Panel 12/09/2016 Sodium 133 mmol/L [...] Egfr 27.9 >60 22, 23 Laboratory test finding 12/06/2016 C Reactive Protein 147.38 mg/L High < 5.00 22, 24 Vancomycin Trough 15.5 g/mL 22, 25 Comp [...] 11/29/2016 C Reactive Protein 12.87 mg/L High < 5.00 28 Hemoglobin A1c (Glyco HGB) 11.2 [...] Protein 7.00 mg/L High < 5.00 39 Laboratory test finding 11/16/2015 Vancomycin Trough 17.2 [...] >60 40 Calcium 8.4 mg/dL Low 8.6-10.3 CBC Auto Diff 11/13/2015 White Blood Count [...] Blood Cells % 0.2 Laboratory test finding 11/13/2015 Vancomycin Trough 26.2 [...] Non- 41.8 >60 Egfr 53.8 >60 43 Laboratory test finding 10/29/2015 Wound Culture/Sensi SEE [...] : [address]: Ashley GEORGE Acct: [id number] Unit: [id number] AGE: 52 Location: [facility] Re12/28/17 SEX: M Status: REG REF SPEC: [id number] MARY: 12/28/17-1156 SUBM : Ashley GEORGE REQ: [id number] RECD: 12/28/17 STATUS: COMP _ SOURCE: MISC SOURC SPDESC:OTHER ORDERED: Culture Stain COMMENTS: Source: Right Foot per Praveena Mota RN.; [id number] Procedure Result Reported Site Wound/Misc Gram Stain [...] CONTINUED ON NEXT PAGE DEPARTMENT OF PATHOLOGY, [address] [place] [address] Dayne Pires M.D. Director [facility] # [id number] Patient: AMMON GALO [id number] (Continued) Specimen: [id number] Collected: 12/28/17 Received: 12/28/17 (Continued) Procedure Result Reported Site Wound/Misc Culture Final (continued) 12/30/17- 1020 1. STAPHYLOCOCCUS AUREUS (continued) M.I.C. RX --------- ------ Vancomycin <=0.5 S Imipenem-Deduced S * Ampicillin/Sulbactam-Deduced S Cefazolin-Deduced S * These antibiotics are not available in the [facility] Formulary Contact the Microbiology Department for any additional antibiotic reporting. * ML - [facility] . END OF REPORT DEPARTMENT OF PATHOLOGY, [address] [place] [address] Dayne Pires M.D. Director [facility] # [id number] 2 [id number] 3 Because ethnic data is not always [...] (or dialysis) 6 Acute inflammation: >10.00 7 Home Health Care Worker: [id number] 8 Because ethnic data is not always [...] 5 Kidney failure <15 (or dialysis) 9 Home Health Care Worker: [id number] 11 Because ethnic data is not always [...] (or dialysis) 12 Acute inflammation: >10.00 13 [id number] 14 Acute inflammation: >10.00 15 Because ethnic [...] inflammation: >10.00 18 FAX RESULTS TO AT [phone] [id number] 19 Because ethnic data is not always [...] 5 Kidney failure <15 (or dialysis) 22 [id number] 23 Because ethnic data is not always [...] (or dialysis) 24 Acute inflammation: >10.00 25 [id number] 26 Because ethnic data is not always [...] K:6.[address] BAER at: 19:10:52 by:[id number] Read back by:DR BAER 28 Acute inflammation: >10.00 29 Therapeutic target for the treatment of diabetes Mellitus patients is <7% HBA1C, and in selective patients <6.0%.Please refer to [place] [employer] Diabetic care guidelines for further [...] failure <15 (or dialysis) 41 ATN: DELMI ADANing URIAS FAX# [phone] 42 Acute inflammation: >10.00 43 Because ethnic [...] [address]: Doug Martinez MD Acct: [id number] Unit: [id number] AGE: 50 Location: [facility] Re10/29/15 SEX: M Status: REG REF SPEC: [id number] MARY: 10/29/15-[address] [facility] [address]: Doug Martinez MD REQ: [id number] RECD: 10/29/15 STATUS: COMP _ SOURCE: FOOT,LEFT SPDESC: ORDERED: Culture Stain Procedure Result Reported Site Wound/Misc Gram Stain Final 10/30/15- 0830 ML 1+ Neutrophils 3+ Gram Positive Bacilli Wound/Misc Culture Final 10/30/15- 1238 ML Organism 1 CORYNEBACTERIUM STRIATUM Quantity 2+ * ML - MAIN LAB (PSC1) . END OF REPORT * ML=Testing performed at Main Lab DEPARTMENT OF PATHOLOGY, [address] [place] [address] Dayne Pires M.D. Director [facility] # [id number] 45 Because ethnic data is not always [...] >10.00 Procedures Date CPT Code Description Status 08/08/2018 49199 Walking Cast Completed 07/27/2018 48387 Apply Total Contact Leg Cast Completed 07/18/2018 44656 Walking Cast Completed 07/11/2018 89607 Walking Cast Completed 06/20/2018 72317 ECHO Transthorasic Realtime 2D W Doppler & Color Flow Completed Hosp 06/19/2018 21227 Apply Total Contact Leg Cast Completed 02/14/2018 39231 Apply Total Contact Leg Cast Completed 01/16/2018 93452 Amputation Foot Midtarsal Completed 01/16/2018 56411 Amputation Foot Midtarsal Completed 01/16/2018 66230 Stress Test Supervsn W/Out I/R Completed 01/16/2018 32642 Treadmill Interp/Report Only Completed 01/15/2018 84751 EKG, Interpretation Only Completed 01/15/2018 42897 Amputation Foot Midtarsal Completed 01/14/2018 83790 EKG, Interpretation Only Completed 10/26/2017 16252 Short Leg Cast Completed 10/16/2017 56868 Amputation Toe MP JT Completed 10/16/2017 23105 Amputation Toe MP JT Completed 10/16/2017 37257 Amputation Toe MP JT Completed 10/16/2017 55389 Amputation Toe MP JT Completed 10/16/2017 88891 Amputation Toe MP JT Completed 02/07/2017 25659 Short Leg Cast Completed 02/03/2017 70747 EKG, Interpretation Only Completed 01/23/2017 85626 Amputation Foot Midtarsal Completed 01/23/2017 10756 Amputation Foot Midtarsal Completed 01/17/2017 01363 ECHO Transthorasic Realtime 2D W Doppler & Color Flow Completed Hosp 01/17/2017 92817 Treadmill Interp/Report Only Completed 01/17/2017 12836 Stress Test Supervsn W/Out I/R Completed 01/16/2017 54853 EKG, Interpretation Only Completed 01/11/2017 47614 Rad Exam; Foot Comp Completed 02/01/2011 49641 EKG, Interpretation Only Completed 07/04/2006 88630 Treadmill Interp/Report Only Completed 07/04/2006 24558 Stress Test Supervsn W/Out I/R Completed 07/04/2006 56237 Stress Test Supervsn W/Out I/R Completed Encounters Type Date Location Provider CPT E/M Dx Office Visit 08/08/2018 [facility], 0[address]39 M86.671 11:00a Татьяна Santiago M.D. Office Visit 07/03/2018 [facility] Beth Jatinder, 78201 I16.0 10:20a [facility] 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 Tia R11.2 L97.419 E11.621 B95.4 Office Visit 07/02/2018 10:20a [facility] [place], [address] I16.0 jazmin Anna M.D. I50.32 K92.0 E87.2 E11.22 N18.5 L97.419 E11.621 Office Visit 06/23/2018 11:59a [facility] jazmin Anna N.Simona 00396 E87.70 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 I50.32 Z79.4 N18.5 E11.22 Office Visit 06/22/2018 11:59a [facility], Yue Mccall N.P. 70825 N18.9 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 I50.32 E87.2 E87.5 S91.301A D63.8 J44.9 E11.22 I12.9 Office Visit 06/21/2018 11:58a [facility], B[facility]bara [facility] [address]302 E87.2 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 SONYA Solo N18.9 S91.301A I50.32 J44.9 E11.22 I12.9 E87.5 E66.01 Office Visit 06/20/2018 11:57a [facility] [address] E87.2 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 OSNYA Solo N18.9 S91.301A I50.32 J44.9 E11.22 E87.5 I12.9 E66.01 Office Visit 06/19/2018 10:15a [facility] [place] [address] L97.419 C.M.A. Z79.4 E11.621 Office Visit 06/19/2018 11:57a [facility] [address] E87.2 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 SONYA Solo E11.22 I10 N18.9 Office Visit 05/29/2018 12:31p [facility] Doug Olvera 02705 E10.621 Infectious Diseases Tia Martinez L97.519 B95.61 N17.9 E10.22 N18.4 Office Visit 05/29/2018 11:49a [facility] [place] 59162 L03.115 C.M.A. Office Visit 05/29/2018 1:12p [facility] Bairon Whitmore 59976 E11.621 Assoc, Hospitalalex Mixon MD L97.418 L03.115 I10 N25.81 E11.22 N18.4 D63.8 E87.8 Office Visit 05/28/2018 1:12p [facility] Bairon Whitmore 71216 E11.621 Assoc, Hospitalalex Mixon MD L97.418 B95.61 L03.115 E87.8 E11.22 N18.4 Office Visit 05/27/2018 1:12p [facility] Bairon Haim 47615 E11.621 Assoc,pc 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 MD Apurva L97.418 M86.9 N18.4 E11.22 Office Visit 05/26/2018 11:48a [facility], 43916 L97.519 Darshana Weber L03.115 Office Visit 05/26/2018 1:11p [facility] Beth Tobias 97806 E11.621 Assoc,pc 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 Tia L97.418 M86.271 D63.8 I10 E11.22 N18.4 Office Visit 05/25[facility]2018 [facility] [address]04 L97.418 Assoc, 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 Tia E11.621 N18.4 E11.22 I10 E11.65 Office Visit 04/17/2018 9:45a [facility], 26904 L97.518 Darshana Weber Office Visit 03/20/2018 9:30a [facility], 46877 M17.12 Darshana Weber M86.271 Office Visit 02/27/2018 11:10a [facility] Michael Martinez, 97941 Z86.19 Infectious Diseases M.DRafael E11.40 Z89.421 Office Visit 01/17/2018 1:16p [facility] Doug Martinez, 68628 E11.69 Infectious Diseases M.DRafael M86.171 Z89.421 Office Visit 01/17/2018 11:02a [facility] 08594 M86.271 Assoc,pc 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 SONYA Solo E11.51 N18.3 Z79.4 Office Visit 01/16/2018 11:02a [facility] 81707 M86.271 Assoc,pc 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 SONYA Solo E11.51 N18.3 Z79.4 Office Visit 01/15/2018 12:39p [facility] Doug Martinez, 24645 E11.69 Infectious Diseases MRafaelDRafael M86.171 E11.22 N18.4 E11.40 Z89.421 Office Visit 01/15/2018 11:01a [facility] 04921 M86.271 Assoc,pc 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 Dianeantonio, STENOTYPIST E11.51 N18.3 Z79.4 Office Visit 01/14/2018 11:00a [facility] Yue Mccall, N.P. 38109 M86.271 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 E11.51 N18.3 Z79.4 Office Visit 01/13/2018 10:59a [facility] Yue Mccall, N.P. 43829 M86.271 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 E11.51 N18.3 Z79.4 Office Visit 01/12/2018 10:58a [facility] Jeronimo, 97289 M86.271 Assoc,pc 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 PA E11.51 N18.3 Z79.4 Office Visit 01/11/2018 10:56a [facility] Robert Thomas, 95100 M86.271 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 M.D. E11.51 N18.3 Z79.4 Office Visit 10/19/2017 3:02p [facility], Juni Manning, 06261 N17.9 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 M.D. N18.3 E11.42 Z79.4 Office Visit 10/18/2017 3:02p [facility] Assoc, Juni Manning, 58557 N17.9 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 M.D. N18.3 E11.42 Office Visit 10/17/2017 1:15p [facility] Michael Martinez, 10587 E11.69 Infectious Diseases M.D. M86.671 E11.40 E11.22 N18.3 B95.61 Office Visit 10/17/2017 3:01p [facility] Assoc, Beth Tobias, 22806 N17.9 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 M.D. N18.3 E11.42 Office Visit 10/16/2017 3:01p [facility] Beth Tobias, 95382 S90.851A Assoc,pc 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 M.D. N17.9 E11.42 Office Visit 10/16/2017 1:07p [facility] Doug Martinez, 62444 E11.69 Infectious Diseases M.D. M86.671 E11.40 L03.031 E11.22 N18.9 Office Visit 10/15/2017 3:00p [facility] Beth Tobias, 91281 S90.851A Assoc, 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 M.DRafael N17.9 N18.3 E11.42 Office Visit 10/15/2017 9:39a [facility] 81936 M86.271 Darshana Phillip MD Office Visit 10/14/2017 2:59p [facility] Shawna Gonzalez, 95027 S90.851A Assoc, 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 D.O. N17.9 N18.3 E11.42 Office Visit 05/23/2017 10:30a [facility] Michael Olvera 02611 L97.321 Infectious Diseases Tia Martinez Office Visit 03/27/2017 2:20p [facility] Michael Olvera 90927 M86.60 Infectious Diseases Tia Martinez L97.321 Office Visit 02/04/2017 3:47p [facility], Juni Manning, 85786 E87.5 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 M.DRafael E11.8 G62.9 N18.3 Office Visit 02/03/2017 3:46p [facility], Scot Sutton, 47289 E87.5 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 N.P. E11.8 G62.9 N18.3 Office Visit 01/25/2017 8:22a [facility] Michael Martinez, 92688 E10.69 Infectious Diseases M.DRafael M86.672 E10.22 N18.4 Z89.432 Office Visit 01/25/2017 4:16p [facility], Ryan Howard M.D. 12775 N18.3 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 M86.60 E11.22 Z89.432 Office Visit 01/24/2017 8:18a [facility] Michael Martinez, 98864 E10.69 Infectious Diseases M.DRafael M86.672 N18.9 Z89.432 E10.22 Office Visit 01/24/2017 4:15p [facility], Ryan Howard M.D. 68603 N18.3 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 Z89.432 E11.22 M86.60 Office Visit 01/23/2017 4:13p [facility] [place] [address] Z89.432 Assoc,pc 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 M86.60 E11.22 Office Visit 01/18/2017 11:19a [facility] Assoc,[place] [address] R55 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 N17.9 N18.4 M86.9 Office Visit 01/17/2017 11:18a [facility] Thiago Pitts, 26002 R55 Assoc,pc PA 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 N17.9 E11.22 N18.4 Office Visit 01/16/2017 11:18a [facility] Assoc,pc Juni Manning, 62694 R55 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 M.D. N17.9 E11.22 N18.4 Office Visit 01/11/2017 9:30a [facility] 48367 M86.672 Татьяна HAAS Acton Tia Office Visit 12/26/2016 1:20p [facility] Michael Olvera 09781 Z79.2 Infectious Diseases Tia Martinez L97.524 M86.672 D64.9 Office Visit 11/29/2016 8:50a [facility] Abdirashid Olvera 35096 L97.524 Infectious Summer Martinez M.D. E11.40 M86.672 E11.621 E11.69 Office Visit 01/12/2016 11:30a [facility] Abdirashid Olvera 91122 M86.672 Martina Martinez M.D. Office Visit 12/01/2015 10:10a [facility] Abdirashid Olvera 78788 M86.672 Martina Martinez M.D. 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 Office Visit 10/09/2014 9:30a [facility] Eli 10372 354.2 C.MEmily Weber Office Visit 01/09/2013 2:37p [facility], 15566 790.6 Assoc, 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 N.P. 250.02 250.20 357.2 Office Visit 09/17/2009 12:15a [facility] Assoc, Beth Jatinder, 37947 251.2 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 Tia Plan of Care Future Appointment(s):08/15/2018 2:45 pm - [facility] M.D. at [facility] AT Kqssfsar76/07/2018 - Robert Galarza M.D.M86.671 Other chronic osteomyelitis, right ankle and footFollow up:1 week
--- OUTSIDE RECORDS SUMMARY | 2018-08-10 15:17 | XMS REPORT ---
:1965 External Reference #:[id number] Author Organization [employer] Address [address] [place] [address] [place] [address] Phone [phone] Care Team Providers Name Role Phone Siddhartha Morrison D.O. Primary Care Physician Unavailable Payers Type Date Identification Numbers Payment Provider Subscriber Medicare Primary Effective: Policy Number: Medicare Ammon Galo 2011 [id number] PayID: [id number] [address] [place] [address] Medigap Part B Policy Number: [id number] Medicaid Ammon Galo PayID: [id number] [address] [place] [address] Problems Date Description Provider Status Onset: 12/01/2015 [...] Rec hours through D. - [facility], 01/26 Home [facility]fusion M.D. Bactrim DS 12/21 [...] Older Vital Signs Date Vital Result Comment 07/18/2018 Height 75.75 inches 6'3.75" Weight 402.00 [...] 1 SEE RESULT BELOW Name: AMMON GALO Nima : [address]: Ashley GEORGE Acct: [id number] Unit: [id number] AGE: 52 Location: [facility] Re12/28/17 SEX: M Status: REG REF SPEC: [id number] MARY: 12/28/17-[address] [facility] DR: Ashley GEORGE REQ: [id number] RECD: 12/28/17 STATUS: COMP _ SOURCE: MISC SOURC SPDESC:OTHER ORDERED: Culture Stain COMMENTS: Source: Right Foot per Praveena Mota RN.; [id number] Procedure Result Reported Site Wound/Misc Gram Stain [...] CONTINUED ON NEXT PAGE DEPARTMENT OF PATHOLOGY, [address] [place] [address] Dayne Pires M.D. Director [facility] # [id number] Patient: AMMON GALO [id number] (Continued) Specimen: [id number] Collected: 12/28/17 Received: 12/28/17 (Continued) Procedure Result Reported Site Wound/Misc Culture Final (continued) 12/30/17- 1020 1. STAPHYLOCOCCUS AUREUS (continued) M.I.C. RX --------- ------ Vancomycin <=0.5 S Imipenem-Deduced S * Ampicillin/Sulbactam-Deduced S Cefazolin-Deduced S * These antibiotics are not available in the [facility] Formulary Contact the Microbiology Department for any additional antibiotic reporting. * ML - Main Lab . END OF REPORT DEPARTMENT OF PATHOLOGY, [address] [place] [address] Dayne Pires M.D. Director [facility] # [id number] 3 Because ethnic data is not always [...] (or dialysis) 6 Acute inflammation: >10.00 7 Biogeographer: [id number] 8 Because ethnic data is not always [...] 5 Kidney failure <15 (or dialysis) 9 Biogeographer: [id number] 11 Because ethnic data is not always [...] (or dialysis) 12 Acute inflammation: >10.00 13 [id number] 14 Acute inflammation: >10.00 15 Because ethnic [...] inflammation: >10.00 18 FAX RESULTS TO AT [phone] [id number] 19 Because ethnic data is not always [...] 5 Kidney failure <15 (or dialysis) 22 [id number] 23 Because ethnic data is not always [...] (or dialysis) 24 Acute inflammation: >10.00 25 [id number] 26 Because ethnic data is not always [...] K:6.[address] BAER at: 19:10:52 by:[id number] Read back by:DR BAER 28 Acute inflammation: >10.00 29 Therapeutic target for the treatment of diabetes Mellitus patients is <7% HBA1C, and in selective patients <6.0%.Please refer to [place] [employer] Diabetic care guidelines for further [...] Kidney failure <15 (or dialysis) 41 ATN: ENMAAnthony CABALLERO BRIDGETT FAX# [phone] 42 Acute inflammation: >10.00 43 Because ethnic [...] [address]: Doug Martinez MD Acct: [id number] Unit: [id number] AGE: 50 Location: [facility] Re10/29/15 SEX: M Status: REG REF SPEC: [id number] MARY: 10/29/[address] [facility] DR: Doug Martinez MD REQ: [id number] RECD: 10/29/15 STATUS: COMP _ SOURCE: FOOT,LEFT SPDESC: ORDERED: Culture Stain Procedure Result Reported Site Wound/Misc Gram Stain Final 10/30/15- 0830 ML 1+ Neutrophils 3+ Gram Positive Bacilli Wound/Misc Culture Final 10/30/15- 1238 ML Organism 1 CORYNEBACTERIUM STRIATUM Quantity 2+ * ML - MAIN LAB ([facility]) . END OF REPORT * ML=Testing performed at Main Lab DEPARTMENT OF PATHOLOGY, [address] [place] [address] Dayne Pires M.D. Director [facility] # [id number] 45 Because ethnic data is not always [...] >10.00 Procedures Date CPT Code Description Status 07/18/2018 35518 Walking Cast Completed 07/11/2018 58277 Walking Cast Completed 06/20/2018 07479 ECHO Transthorasic Realtime 2D W Doppler & Color Flow Completed Hosp 06/19/2018 50427 Apply Total Contact Leg Cast Completed 02/14/2018 49342 Apply Total Contact Leg Cast Completed 01/16/2018 25799 Treadmill Interp/Report Only Completed 01/16/2018 54598 Stress Test Supervsn W/Out I/R Completed 01/16/2018 23057 Amputation Foot Midtarsal Completed 01/16/2018 48336 Amputation Foot Midtarsal Completed 01/15/2018 32167 EKG, Interpretation Only Completed 01/15/2018 05222 Amputation Foot Midtarsal Completed 01/14/2018 27462 EKG, Interpretation Only Completed 10/26/2017 37092 Short Leg Cast Completed 10/16/2017 52351 Amputation Toe MP JT Completed 10/16/2017 07453 Amputation Toe MP JT Completed 10/16/2017 37343 Amputation Toe MP JT Completed 10/16/2017 08688 Amputation Toe MP JT Completed 10/16/2017 01032 Amputation Toe MP JT Completed 02/07/2017 22443 Short Leg Cast Completed 02/03/2017 43708 EKG, Interpretation Only Completed 01/23/2017 90894 Amputation Foot Midtarsal Completed 01/23/2017 01398 Amputation Foot Midtarsal Completed 01/17/2017 53501 ECHO Transthorasic Realtime 2D W Doppler & Color Flow Completed Hosp 01/17/2017 32506 Treadmill Interp/Report Only Completed 01/17/2017 64489 Stress Test Supervsn W/Out I/R Completed 01/16/2017 71872 EKG, Interpretation Only Completed 01/11/2017 14705 Rad Exam; Foot Comp Completed 02/01/2011 60948 EKG, Interpretation Only Completed 07/04/2006 03150 Treadmill Interp/Report Only Completed 07/04/2006 62639 Stress Test Supervsn W/Out I/R Completed 07/04/2006 18355 Stress Test Supervsn W/Out I/R Completed Encounters Type Date Location Provider CPT E/M Dx Office Visit 07/03/2018 [facility], Beth Tobias M.D. 49546 I16.0 10:20a 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 R11.2 L97.419 E11.621 B95.4 Office Visit 07/02/2018 10:20a [facility] [place], [address] I16.0 Assoc, Emily Weber I50.32 K92.0 E87.2 E11.22 N18.5 L97.419 E11.621 Office Visit 06/23[facility]2018 [facility] Yue [facility]ccall, N.P. 67185 E87.70 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 I50.32 Z79.4 N18.5 E11.22 Office Visit 06/22/2018 11:59a [facility] Yue Mccall N.P. 32803 N18.9 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 I50.32 E87.2 E87.5 S91.301A D63.8 J44.9 E11.22 I12.9 Office Visit 06/21/2018 11:58a [facility]jazmin Mas 09044 E87.2 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 SONYA Solo N18.9 S91.301A I50.32 J44.9 E11.22 I12.9 E87.5 E66.01 Office Visit 06/20/2018 11:57a [facility], Bárbara [place] [address]8085 E87.2 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 SONYA Solo N18.9 S91.301A I50.32 J44.9 E11.22 E87.5 I12.9 E66.01 Office Visit 06/19/2018 11:57a [facility], [place]bara [place] 06148 E87.2 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 SONYA Solo E11.22 I10 N18.9 Office Visit 06/19/2018 10:15a [facility] [place] [address] L97.419 C.M.A. Z79.4 E11.621 Office Visit 05/29/2018 12:31p [facility] Doug Olvera 93085 E10.621 Infectious Diseases Tia Martinez L97.519 B95.61 N17.9 E10.22 N18.4 Office Visit 05/29/2018 11:49a [facility] [place]-C 22516 L03.115 C.M.A. Office Visit 05/29/2018 1:12p [facility] Bairon Whitmore 51578 E11.621 Assoc, 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 MD Apurva L97.418 L03.115 I10 N25.81 E11.22 N18.4 D63.8 E87.8 Office Visit 05/28/2018 1:12p [facility] Bairon Whitmore 04401 E11.621 Assoc, 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 MD Apurva L97.418 B95.61 L03.115 E87.8 E11.22 N18.4 Office Visit 05/27/2018 1:12p [facility] Bairon Whitmore 18626 E11.621 Assoc, 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 MD Apurva L97.418 M86.9 N18.4 E11.22 Office Visit 05/26/2018 11:48a [facility] Robert Galarza 94056 L97.519 C.M.ARafael Weber L03.115 Office Visit 05/26/2018 1:11p [facility] Beth Tobias 34822 E11.621 Assoc, Hospitalalex Weber L97.418 M86.271 D63.8 I10 E11.22 N18.4 Office Visit 05/25/2018 1:10p [facility] Beth Tobias, 92443 L97.418 Assoc,pc 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 MNevaeh E11.621 N18.4 E11.22 I10 E11.65 Office Visit 04/17/2018 9:45a [facility], 73078 L97.518 CBecky Weber Office Visit 03/20/2018 9:30a [facility], 45306 M17.12 C.Philipp Weber M86.271 Office Visit 02/27/2018 11:10a [facility] Doug Martinez, 84190 Z86.19 Infectious Diseases M.May E11.40 Z89.421 Office Visit 01/17/2018 1:16p [facility] Doug Martinez, 75974 E11.69 Infectious Diseases MNevaeh M86.171 Z89.421 Office Visit 01/17/2018 11:02a [facility] 92022 M86.271 Assoc, 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 SONYA Solo E11.51 N18.3 Z79.4 Office Visit 01/16/2018 11:02a [facility] 17006 M86.271 Assoc, 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 SONYA Solo E11.51 N18.3 Z79.4 Office Visit 01/15/2018 12:39p [facility] Doug Martinez, 04355 E11.69 Infectious Diseases MNevaeh M86.171 E11.22 N18.4 E11.40 Z89.421 Office Visit 01/15/2018 11:01a [facility] 92038 M86.271 Assoc,pc 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 SONYA Solo E11.51 N18.3 Z79.4 Office Visit 01/14/2018 11:00a [facility], Yue Mccall, N.P. 07114 M86.271 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 E11.51 N18.3 Z79.4 Office Visit 01/13/2018 10:59a [facility], Yue Mccall N.P. 92488 M86.271 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 E11.51 N18.3 Z79.4 Office Visit 01/12/2018 10:58a [facility] Jono Decker, 80373 M86.271 Assoc, 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 PA E11.51 N18.3 Z79.4 Office Visit 01/11/2018 10:56a [facility], Robert William, 56751 M86.271 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 M.D. E11.51 N18.3 Z79.4 Office Visit 10/19/2017 3:02p [facility], Juni Manning, 75589 N17.9 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 M.D. N18.3 E11.42 Z79.4 Office Visit 10/18/2017 3:02p [facility], Juni Manning, 06876 N17.9 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 M.D. N18.3 E11.42 Office Visit 10/17/2017 1:15p [facility] Doug Martinez, 71971 E11.69 Infectious Diseases M.May M86.671 E11.40 E11.22 N18.3 B95.61 Office Visit 10/17/2017 3:01p [facility], Beth Tobias, 46769 N17.9 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 M.May N18.3 E11.42 Office Visit 10/16/2017 3:01p [facility] Beth Hohn, 31168 S90.851A Assoc, 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 MNevaeh N17.9 E11.42 Office Visit 10/16/2017 1:07p [facility] Doug Martinez, 07707 E11.69 Infectious Diseases M.DRafael M86.671 E11.40 L03.031 E11.22 N18.9 Office Visit 10/15/2017 3:00p [facility] Beth Hohn, 25123 S90.851A Assoc, 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 M.DRafael N17.9 N18.3 E11.42 Office Visit 10/15/2017 9:39a [facility] Vazquez 47831 M86.271 Darshana Phillip MD Office Visit 10/14/2017 2:59p [facility] Shawna Gonzalez, 89790 S90.851A Assoc, 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 D.ORafael N17.9 N18.3 E11.42 Office Visit 05/23/2017 10:30a [facility] Doug May 86482 L97.321 Infectious Diseases Tia Martinez Office Visit 03/27/2017 2:20p [facility] Doug May 57308 M86.60 Infectious Diseases Tia Martinez L97.321 Office Visit 02/04/2017 3:47p [facility], Juni Manning, 35601 E87.5 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 M.D. E11.8 G62.9 N18.3 Office Visit 02/03/2017 3:46p [facility], Scot Sutton, 15805 E87.5 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 N.P. E11.8 G62.9 N18.3 Office Visit 01/25/2017 8:22a [facility] Dougmarcela Martinez, 12999 E10.69 Infectious Diseases M.DRafael M86.672 E10.22 N18.4 Z89.432 Office Visit 01/25/2017 4:16p [facility], Ryan Howard M.D. 79383 N18.3 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 M86.60 E11.22 Z89.432 Office Visit 01/24/2017 8:18a [facility] Dougmarcela Martinez, 94085 E10.69 Infectious Diseases M.DRafael M86.672 N18.9 Z89.432 E10.22 Office Visit 01/24/2017 4:15p [facility], Ryan Howard M.D. 01585 N18.3 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 Z89.432 E11.22 M86.60 Office Visit 01/23/2017 4:13p [facility] [place] [address] Z89.432 Assoc, 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 M86.60 E11.22 Office Visit 01/18/2017 11:19a [facility], [place] [address] R55 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 N17.9 N18.4 M86.9 Office Visit 01/17/2017 11:18a [facility] Thiago Pitts, 82609 R55 Assoc, [place] 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 N17.9 E11.22 N18.4 Office Visit 01/16/2017 11:18a [facility], Juni Manning, 61511 R55 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 Tia N17.9 E11.22 N18.4 Office Visit 01/11/2017 9:30a [facility] Galarza 84786 M86.672 [facility] [place] Tia Office Visit 12/26/2016 1:20p [facility] Mihcael Olvera 71301 Z79.2 Infectious Diseases Tia Martinez L97.524 M86.672 D64.9 Office Visit 11/29/2016 8:50a [facility]id Olvera 97691 L97.524 Infectious Summer Martinez M.D. E11.40 M86.672 E11.621 E11.69 Office Visit 01/12/2016 11:30a [facility] Abdirashid Olvera 47412 M86.672 Martina Martinez M.D. Office Visit 12/01/2015 10:10a [facility] Michael Olvera 64739 M86.672 Infectious Summer Martinez M.D. Office Visit 12/01/2015 11:00a [facility] [place] [address] G47.9 [facility] E66.01 Office Visit 10/29/2015 4:20p [facility] Abdirashid Olvera 59140 M86.672 Infectious Summer Martinez M.D. Office Visit 10/09/2014 9:30a [facility] Eli 47176 354.2 C.MEmily Weber Office Visit 01/09/2013 2:37p [facility], [address]6320 790.6 Assoc, 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 N.P. 250.02 250.20 357.2 Office Visit 09/17/2009 12:15a [facility], Beth Tobias, 89009 251.2 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 Tia Plan of Care Future Appointment(s):07/25/2018 2:30 pm - Robert Galarza M.D. at [facility] AT Pkozvmeg23/17/2018 - Robert Galarza M.D.M86.671 Other chronic osteomyelitis, right ankle and footFollow up:1 week
[2018-08-10 15:22] LABS: ABS Basophils 0 10^3/ul (0-0.2); ABS Eosinophils 0.1 10^3/ul (0-0.6); ABS Monocytes 0.5 10^3/ul (0-0.8); ABS Neutrophils 4.7 10^3/ul (1.5-7.7); ABS Nucleated RBC 0 10^3/ul; Hematocrit 35 % (42-52); Hemoglobin 11.6 g/dl (14.0-18.0); Lymphocyte % 15.5 % (25-47); Mean Corpuscular HGB Conc 33 g/dl (31-36); Mean Corpuscular Hemoglobin 27 pg (27-31); Mean Corpuscular Volume 83 fL (80-94); Mean Platelet Volume 7.9 fL (7.4-10.4); Nucleated Red Blood Cells % 0.2; Platelet Count 193 10^3/ul (150-450); Red Blood Count 4.24 10^6/ul (4.00-5.40); Red Cell Distribution Width 17 % (10.5-15); White Blood Count 6.3 10^3/ul (3.5-10.8)
[2018-08-10 15:33] LABS: EGFR Non-African American 13.2 (>60)
[2018-08-10] MEDS: Labetalol IV* 5 MG/ML 20 ML VIAL IV PUSH ONE ×2 (15:41→16:31)
--- NOTE | 2018-08-10 16:06 | ED ---
HPI Chest Pain - HPI Summary HPI Summary: A 52 y/o male brought in by ambulance presents to the ED c/o CP since 2017.He rates his pain as 7/10. He also c/o a panic attack that occurred today, 08/10/2018. He states that he will be evicted in 8 days, spoke with a [employer] member who told him that he should have gotten a 30 day notice, and that the carpenter helper maintenance is taunting him saying "8 more days". He also c/o N/V and mild abd pain since 08/08/2018. - History of Current Complaint Chief Complaint: EDChestPainROMI Time Seen by Provider: 08/10/18 14:20 Hx Obtained From: Patient Timing: Constant Initial Severity: Moderate Current Severity: Moderate Pain Intensity: 7 Pain Scale Used: 0-10 Numeric Chest Pain Location: Diffuse - Additional Pertinent History Primary Care Physician: [id number] - Allergy/Home Medications Allergies/Adverse Reactions: Allergies Allergy/AdvReac Type Severity Reaction Status Date / Time peanut Allergy Rash Verified 08/10/18 22:09 peanut oil Allergy Rash Verified 08/10/18 22:09 spinach Allergy "My tongue Verified 08/10/18 22:09 swells up and I can't breathe." strawberry Allergy "My tongue Verified 08/10/18 22:09 swells right up." sulfamethoxazole Allergy "I don't Verified 08/10/18 22:09 [From Bactrim] know ... lips swelled up." trimethoprim [From Bactrim] Allergy "I don't Verified 08/10/18 22:09 know ... lips swelled up." PMH/Surg Hx/FS Hx/Imm Hx Endocrine/Hematology History: Reports: Hx Diabetes, Hx Anemia Denies: Hx Blood Transfusions, Hx Systemic Lupus Erythematosus, Hx Thyroid Disease, Other Endocrine/Hematological Disorders Cardiovascular History: Reports: Hx Angina, Hx Coronary Artery Disease, Hx Hypercholesterolemia, Hx Hypertension, Hx Peripheral Vascular Disease Denies: Hx Congestive Heart Failure, Hx Myocardial Infarction, Hx Pacemaker/ ICD, Hx Valvular Heart Disease Respiratory History: Reports: Hx Sleep Apnea - suspected, Other Respiratory Problems/Disorders - COPD Denies: Hx Asthma, Hx Chronic Obstructive Pulmonary Disease (COPD) - home O2 , does not use, Hx Cystic Fibrosis, Hx Lung Cancer, Hx Pleural Effusion, Hx Pneumonia, Hx Pulmonary Edema, Hx Pulmonary Embolism, Hx Seasonal Allergies GI History: Reports: Hx Gastroesophageal Reflux Disease Denies: Hx Ulcer History: Reports: Hx Chronic Renal Failure, Hx Kidney Stones - possibly 2017 per Pt, Other Problems/Disorders - CKD Denies: Hx Acute Renal Failure, Hx Dialysis, Hx Kidney Infection, Hx Renal Disease Musculoskeletal History: Reports: Other Musculoskeletal History - 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 L achilles tendon remove Denies: Hx Rheumatoid Arthritis Sensory History: Reports: Hx Cataracts, Other Sensory Impairments - peripheral neuropathies Denies: Hx Contacts or Glasses, Hx Hearing Aid Opthamlomology History: Reports: Hx Cataracts, Other Sensory Impairments - peripheral neuropathies Denies: Hx Contacts or Glasses Neurological History: Reports: Hx Headaches, Hx Migraine, Hx Nerve Disease, Other Neuro Impairments/Disorders - Hx Pre syncope, phantom toe pain left foot, yousuf numb/tingling feet Denies: Hx Dementia, Hx Developmental Delay, Hx Seizures, Hx Spinal Cord Injury, Hx Transient Ischemic Attacks (TIA) Psychiatric History: Reports: Hx Anxiety - PRN LORAZEPAM, Hx Eating Disorder, Hx Depression Denies: Hx Panic Disorder, Hx Inpatient Treatment - Cancer History Hx Chemotherapy: No Hx Radiation Therapy: No Hx Palliative Cancer Treatment: No - Surgical History Surgery Procedure, Year, and Place: right big toe amputation, - ALL REMOVED NOW (11/2017). CATARACT WITH LENS IMPLANTS - BY DR DENNEY. 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 Hx Anesthesia Reactions: No Infectious Disease History: No Infectious Disease History: Reports: Hx of Known/Suspected MRSA - [facility], Chest, 2004 Denies: Hx Hepatitis, Hx Human Immunodeficiency Virus (HIV), History Other Infectious Disease, Traveled Outside the [place] in Last 30 Days - Family History Known Family History: Positive: Diabetes Negative: Cardiac Disease - Social History Alcohol Use: None Hx Substance Use: No Substance Use Type: Reports: None Substance Use Comment - Amount & Last Used: CHEWING TOBACCO Hx Tobacco Use: Yes Smoking Status (MU): Former Smoker Type: Smokeless Tobacco Amount Used/How Often: quit in 2009 Length of Time of Smoking/Using Tobacco: <1 PPD x 26 Years Have You Smoked in the Last Year: No Review of Systems Positive: Chest Pain Positive: Abdominal Pain, Vomiting, Nausea Positive: Other - positive: "panic attack" All Other Systems Reviewed And Are Negative: Yes Physical Exam - Summary Physical Exam Summary: VITAL SIGNS: Reviewed. GENERAL: Patient is an obese MALE who is lying comfortable in the stretcher. Patient is not in any acute respiratory distress. HEAD AND FACE: No signs of trauma. No ecchymosis, hematomas or skull depressions. No sinus tenderness. EYES: PERRLA, EOMI x 2, No injected conjunctiva, no nystagmus. EARS: Hearing grossly intact. Ear canals and tympanic membranes are within normal limits. MOUTH: Oropharynx within normal limits. NECK: Supple, trachea is midline, no adenopathy, no JVD, no carotid bruit, no c- spine tenderness, neck with full ROM. CHEST: Symmetric, no tenderness at palpation LUNGS: Clear to auscultation bilaterally. No wheezing or crackles. CVS: Regular rate and rhythm, S1 and S2 present, no murmurs or gallops appreciated. ABDOMEN: Soft, non-tender. No signs of distention. No rebound no guarding, and no masses palpated. Bowel sounds are normal. EXTREMITIES: FROM in all major joints, no edema, no cyanosis or clubbing. NEURO: Alert and oriented x 3. No acute neurological deficits. Speech is normal and follows commands. SKIN: Dry and warm Psych: anxious Triage Information Reviewed: Yes Vital Signs On Initial Exam: Initial Vitals Temp Pulse Resp BP Pulse Ox 98.7 F 70 18 205/108 99 08/10/18 14:15 08/10/18 14:15 08/10/18 14:15 08/10/18 14:15 08/10/18 14:15 Vital Signs Reviewed: Yes Diagnostics - Vital Signs Vital Signs Temp Pulse Resp BP Pulse Ox 08/10/18 15:22 70 16 175/103 99 08/10/18 15:05 26 08/10/18 15:02 71 19 207/117 98 08/10/18 15:00 70 14 99 08/10/18 14:53 16 192/112 08/10/18 14:51 14 08/10/18 14:15 98.7 F 70 18 205/108 99 - Laboratory Lab Results: Lab Results 08/10/18 08/10/18 08/10/18 Range/Units 14:43 14:56 14:56 WBC 6.3 (3.5-10.8) 10^3/ul RBC 4.24 (4.00-5.40) 10^6/ul Hgb 11.6 L (14.0-18.0) g/dl Hct 35 L (42-52) % MCV 83 (80-94) fL MCH 27 (27-31) pg MCHC 33 (31-36) g/dl RDW 17 H (10.5-15) % Plt Count 193 (150-450) 10^3/ul MPV 7.9 (7.4-10.4) fL Neut % (Auto) 74.7 (38-83) % Lymph % (Auto) 15.5 L (25-47) % Mathews % (Auto) 8.3 H (0-7) % Eos % (Auto) 1.0 (0-6) % Baso % (Auto) 0.5 (0-2) % Absolute Neuts (auto) 4.7 (1.5-7.7) 10^3/ul Absolute Lymphs (auto) 1.0 (1.0-4.8) 10^3/ul Absolute Monos (auto) 0.5 (0-0.8) 10^3/ul Absolute Eos (auto) 0.1 (0-0.6) 10^3/ul Absolute Basos (auto) 0 (0-0.2) 10^3/ul Absolute Nucleated RBC 0 10^3/ul Nucleated RBC % 0.2 INR (Anticoag Therapy) 1.00 (0.77-1.02) APTT 29.1 (26.0-36.3) seconds Sodium 136 (135-145) mmol/L Potassium 4.0 (3.5-5.0) mmol/L Chloride 104 (101-111) mmol/L Carbon Dioxide 22 (22-32) mmol/L Anion Gap 10 (2-11) mmol/L BUN 44 H (6-24) mg/dL Creatinine 4.71 H (0.67-1.17) mg/dL Est GFR ( Amer) 16.0 (>60) Est GFR (Non-Af Amer) 13.2 (>60) BUN/Creatinine Ratio 9.3 (8-20) Glucose 160 H (70-100) mg/dL Lactic Acid (0.5-2.0) mmol/L Calcium 9.8 (8.6-10.3) mg/dL Magnesium 1.6 L (1.9-2.7) mg/dL Total Bilirubin 0.40 (0.2-1.0) mg/dL AST 19 (13-39) U/L ALT 13 (7-52) U/L Alkaline Phosphatase 96 (34-104) U/L Total Creatine Kinase 61 (10-223) U/L CK-MB (CK-2) 1.6 (0.6-6.3) ng/mL Troponin I 0.01 (<0.04) ng/mL B-Natriuretic Peptide (<=100) pg/mL Total Protein 7.5 (6.4-8.9) g/dL Albumin 3.4 (3.2-5.2) g/dL Globulin 4.1 H (2-4) g/dL Albumin/Globulin Ratio 0.8 L (1-3) TSH Pending Salicylates Pending Acetaminophen Pending Serum Alcohol Pending 08/10/18 08/10/18 Range/Units 14:56 14:56 WBC (3.5-10.8) 10^3/ul RBC (4.00-5.40) 10^6/ul Hgb (14.0-18.0) g/dl Hct (42-52) % MCV (80-94) fL MCH (27-31) pg MCHC (31-36) g/dl RDW (10.5-15) % Plt Count (150-450) 10^3/ul MPV (7.4-10.4) fL Neut % (Auto) (38-83) % Lymph % (Auto) (25-47) % Mathews % (Auto) (0-7) % Eos % (Auto) (0-6) % Baso % (Auto) (0-2) % Absolute Neuts (auto) (1.5-7.7) 10^3/ul Absolute Lymphs (auto) (1.0-4.8) 10^3/ul Absolute Monos (auto) (0-0.8) 10^3/ul Absolute Eos (auto) (0-0.6) 10^3/ul Absolute Basos (auto) (0-0.2) 10^3/ul Absolute Nucleated RBC 10^3/ul Nucleated RBC % INR (Anticoag Therapy) (0.77-1.02) APTT (26.0-36.3) seconds Sodium (135-145) mmol/L Potassium (3.5-5.0) mmol/L Chloride (101-111) mmol/L Carbon Dioxide (22-32) mmol/L Anion Gap (2-11) mmol/L BUN (6-24) mg/dL Creatinine (0.67-1.17) mg/dL Est GFR ( Amer) (>60) Est GFR (Non-Af Amer) (>60) BUN/Creatinine Ratio (8-20) Glucose (70-100) mg/dL Lactic Acid 1.5 (0.5-2.0) mmol/L Calcium (8.6-10.3) mg/dL Magnesium (1.9-2.7) mg/dL Total Bilirubin (0.2-1.0) mg/dL AST (13-39) U/L ALT (7-52) U/L Alkaline Phosphatase (34-104) U/L Total Creatine Kinase (10-223) U/L CK-MB (CK-2) (0.6-6.3) ng/mL Troponin I (<0.04) ng/mL B-Natriuretic Peptide 204 H (<=100) pg/mL Total Protein (6.4-8.9) g/dL Albumin (3.2-5.2) g/dL Globulin (2-4) g/dL Albumin/Globulin Ratio (1-3) TSH Salicylates Acetaminophen Serum Alcohol Result Diagrams: 08/11/18 04:15 08/11/18 04:15 Lab Statement: Any lab studies that have been ordered have been reviewed, and results considered in the medical decision making process. - Radiology CXR Radiology Interpretation Completed By: Radiologist - No active cardiopulmonary disease is noted. ED physician has reviewed this report. abdomen Radiology Interpretation Completed By: Radiologist - No acute abdominal pelvic process evident. ED physician has reviewed this report. - EKG 14:50 Cardiac Rate: NL - 75 bpm EKG Rhythm: Sinus Rhythm Summary of EKG Findings: No ST elevation. Similar to EKG done on 07/01/2018. Re-Evaluation - Re-Evaluation First Eval Re-Evaluation Time: 21:05 Change: Unchanged Comment: Medically cleared Chest Pain Course/Dx - Course Assessment/Plan: A 52 y/o male brought in by ambulance presents to the ED c/o CP since 08/08/2018.He rates his pain as 7/10. He also c/o a panic attack that occurred today, 08/10/2018. He states that he will be evicted in 8 days, spoke with a [employer] member who told him that he should have gotten a 30 day notice, and that the carpenter helper maintenance is taunting him saying "8 more days". He also c/o N/V and mild abd pain since 08/08/2018. Blood work without any significant abnormality except for hemoglobin 11 point 6 and hematocrit 35, BUN is 44 creatinine 4.71 which is his baseline. Patient has had chronic renal failure. The patients magnesium is low therefore the patient was given 1 g of magnesium IV. 2 troponins 4 hours apart 0.01. EKG shows no ST elevations. Chest x-ray shows no acute pathology. Abdomen x-ray shows no acute pathology. In the ED course the patient was given Ativan for the anxiety, the patient was given Zofran for nausea and vomiting. The patient was found to be hypertensive therefore the patient was given labetalol 20 mg IV. At this point the patients blood pressure has decreased to 161/87. Because of the patients anxiety he requested to do a mental health ablation. Therefore the patient was awaiting for mental health ablation since the patient is medically clear. Dr. Banuelos for mental health assessed the patient and his worried that the patients has an increased BUN/creatinine. Therefore he requested to have a consult from the hospital services. If the patient is clear by hospitalist he recommends for the patient to be admitted to his services for further workup and management. However, he requested the hospital services consult before admission. Yue sotelo from the hospitalist services had a consult for the patient and agrees that the patient can be medically clear. Therefore I discussed the case with Dr. Banuelos from the psychiatry services and he recommends the patient to be admitted to his services for further workup and management. That the patient told the mental health relief docking master that he is afraid of going home because he will kill himself with an overdose of insulin. Therefore Dr. Mendoza recommends admission. I discussed the plan with the patient and he agrees. - Chest Pain Differential Diagnosis/HQI/PQRI: Acute [place], ACS, Angina, CHF, Chest Wall, Lower Respiratory Infection, Other: - Depression, anxiety, SI - Diagnoses Provider Diagnoses: Anxiety, Depression - Provider Notifications Discussed Care Of Patient With: Lisa Antonio Time Discussed With Above Provider: 20:00 Instructed by Provider To: Other - After speaking with Dr. Banuelos, psych, who wants to admit the patient, he informed me that he wants a consult from the hospitalist beforehand. I spoke with Dr. Antonio about giving the patient a consult. At 21:00 Yue Mccall midlevel from hospitalist services said the patient is medically cleared. At 21:[address] Banuelos about the patient being medically cleared. Discharge - Sign-Out/Discharge Documenting (check all that apply): Patient Departure - Discharge Plan Condition: Stable Disposition: ADMITTED TO [facility] - Billing Disposition and Condition Condition: STABLE Disposition: Admitted to [facility] - Attestation Statements Document Initiated by Scribe: Yes Documenting Scribe: Jasper Mukherjee Provider For Whom Scribe is Documenting (Include Credential): Drake Enamorado MD Scribe Attestation: I, Jasper Mukherjee, scribed for Drake Enamorado MD on 08/11/18 at 0836. Scribe Documentation Reviewed: Yes Provider Attestation: The documentation as recorded by the Jasper vicente accurately reflects the service I personally performed and the decisions made by me, Drake Enamorado MD Attestations User Type: Provider with Scribe Provider Attestation: The documentation recorded by the scribe accurately reflects the service I personally performed and the decisions made by me. Consult Consult: 21:05 Dr. Banuelos will accept the patient for admission.
[2018-08-10] MEDS ORDERED: Magnesium Sulfate 1 GM IV* 1 GM/100 ML BAG IV ONE (20:04)
[2018-08-10] MEDS ORDERED: LORazepam INJ* 2 MG/ML 1 ML VIAL IV PUSH ONE (21:08)
--- NOTE | 2018-08-10 23:12 | CONS ---
CC: Dr. Morrison * HOSPITAL MEDICINE CONSULTATION REPORT: DATE OF CONSULT: 08/10/18 PRIMARY CARE PHYSICIAN: Dr. Morrison. ATTENDING PHYSICIAN: Dr. Antonio (dictation provided by Yue Mccall NP). REASON FOR CONSULT: Question regarding need for medical care prior to or during admission to the Mental Health Unit. HISTORY OF PRESENT ILLNESS: Mr. Galo is a 52-year-old male well known to the medical team here at our hospital with multiple previous admissions related to bilateral feet ulcers, nausea, vomiting, and medical noncompliance. The patient has a history of CKD stage 5 and insulin-dependent diabetes. He was last discharged from the hospital on 07/03/18 after being treated for hypertensive urgency due to medical noncompliance. The patient states that since returning home that he has been taking all of his medications appropriately. He is continued on glargine insulin and Lasix twice a day. He had been planned to follow up with Dr. Ramirez on 07/11/18 in followup of his CKD stage 5. The patient states that he had to change his appointment due to difficulties at home and with his housing. He states his appointment is rescheduled for 08/20/18. Medically, the patient feels like he is at his baseline; however, in terms of his emotional state, he has been very anxious and sad recently. He had a friend who last week. He is also not going to be able to renew his lease and will be evicted from his apartment. He, therefore, has no place to live at this point once he is out of the current apartment. The patient states that with this, he has been having trouble with eating. He has been nauseous and vomiting. He has had diarrhea. He has had shortness of breath and chest pain. Today he had what he described as severe chest pain related to a panic attack and therefore called EMS to be brought to the hospital. In the emergency room, Mr. Galo had an EKG, which showed no evidence of ischemia. He had troponins, which were 0.01 and 0.01. He states he is feeling a bit better, but he feels anxious. He does not have chest pain. The mental health evaluators were called and asked for their input and they suggested that he could be admitted to the mental health unit for his severe anxiety, but that he would need medical clearance beforehand. PAST MEDICAL HISTORY: 1. CKD, stage 5. 2. 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 3. Hypertension. 4. Anemia. MEDICATIONS: Outpatient: 1. Simvastatin 20 mg p.o. daily. 2. Sertraline 50 mg p.o. daily. 3. Ranitidine 150 mg p.o. b.i.d. 4. Metoprolol tartrate 12.5 mg p.o. q.12 hours. 5. Floranex tablets 2 chews p.o. daily. 6. Novolin R insulin 10 units subcutaneously t.i.d. 7. Lantus insulin 45 units subcutaneously daily. 8. Furosemide 40 mg p.o. b.i.d. 9. Keflex 500 mg p.o. b.i.d. 10. Calcium acetate 667 mg p.o. q.a.c. 11. Tylenol 650 mg p.o. q.4 hours p.r.n. ALLERGIES: PEANUTS, SPINACH, STRAWBERRY and SULFAMETHOXAZOLE with TRIMETHOPRIM. FAMILY HISTORY: Reviewed, noncontributory, with a history of reported diabetes throughout the family. SOCIAL HISTORY: The patient is a former smoker, quit 8 years ago. He drinks alcohol occasionally. No prior drug use. He lives alone. REVIEW OF SYSTEMS: A 14-point review of systems was completed with Mr. Galo and all those not mentioned above were negative. PHYSICAL EXAM: General: Mr. Galo is lying in the bed, he is in no acute distress. Vital Signs: Temperature 98.7, pulse rate 82, respiratory rate 13, O2 saturation 96% on room air, blood pressure 123/69. Neuro: He is alert, he is oriented x3. He moves all extremities equally. There is no facial asymmetry or focal weakness. Extraocular movements are intact. Heart: S1, S2. No murmur, rub, or gallop and regular. Lungs are clear to auscultation bilaterally with no accessory muscle use and good aeration. The abdomen is soft , nontender, bowel sounds positive x4. Extremities: The patient has bilateral tarsometatarsal amputations. He has a cast on his right leg. There is no swelling noted to left leg and none to the right as visualized. The patient states he follows with Dr. Galarza for the cast on the right leg. Skin is, otherwise, intact. DIAGNOSTIC STUDIES/LAB DATA: Sodium 136, potassium 4.0, chloride 104, serum bicarbonate 22, BUN 44, creatinine 4.71, glucose 160. Lactic acid 1.5. Magnesium 1.6. Troponin 0.01, followed by 0.01. TSH 1.79. Toxicology screen is negative. The abdomen x-ray is negative as his chest x-ray for any acute process. IMPRESSION AND PLAN: Mr. Galo is a 52-year-old male with a past medical history of chronic kidney disease stage 5 with insulin-dependent diabetes with associated bilateral tarsometatarsal amputations for ongoing infection. He has presented to the hospital today in the setting of acute stressors outpatient, with a of a friend and eviction from his home with symptoms of nausea, vomiting, diarrhea, shortness of breath, chest pain associated with panic and anxiety. The patient's workup thus far in the emergency room has been negative for cardiac source and his abdominal x-ray is negative as well. His labs are unremarkable. His vitals are stable. The patient has been evaluated by a mental health on site soil evaluator and deemed to be a potential admission to the mental health unit, but Dr. Banuelos wanted clearance from the medical team prior to that. At this point, the patient is at baseline. He does have chronic kidney disease, stage 5, and we continue to recommend that he follow up with Dr. Ramirez as an outpatient. Currently, he is not fluid overloaded and his electrolytes are within normal limits; therefore, there is no indication for emergent dialysis. We would ask that the mental health team call us back if they would like us to continue to follow him in the event that he is admitted there as there are no acute changes needed with his medications or treatment plan at this time. TIME SPENT: Approximately 45 minutes were spent in the consultation of this patient, more than half that time was spent with the patient at the bedside reviewing the events leading up to this hospitalization, performing the physical examination, and reviewing the plan of care. YUE MCCALL NP [id number]/CPS #: [id number] KEDAR
[2018-08-10] MEDS ORDERED: Acetaminophen TAB* 325 MG PO PRN (23:37)
[2018-08-11] MEDS ORDERED: Mouth Piece, Nicotine* 1 EACH CARTRIDGE INH SCH (01:11)
[2018-08-11] MEDS ORDERED: Al Hydrox/Mg Hydrox/Simet LIQ* 30 ML UDC PO PRN (01:11)
[2018-08-11] MEDS ORDERED: Nicotine GUM* 2 MG PO PRN (01:11)
[2018-08-11] MEDS ORDERED: Nicotine Inhaler* 10 MG AMP INH PRN (01:11)
[2018-08-11] MEDS ORDERED: LORazepam TAB(*) 1 MG PO ONE (01:30)
[2018-08-11 04:57] LABS: ABS Basophils 0 10^3/ul (0-0.2); ABS Eosinophils 0.1 10^3/ul (0-0.6); ABS Lymphocytes 1.1 10^3/ul (1.0-4.8); ABS Monocytes 0.6 10^3/ul (0-0.8); ABS Neutrophils 3.8 10^3/ul (1.5-7.7); ABS Nucleated RBC 0 10^3/ul; Eosinophil % 1.4 % (0-6); Hematocrit 34 % (42-52); Hemoglobin 10.9 g/dl (14.0-18.0); Lymphocyte % 19.4 % (25-47); Mean Corpuscular HGB Conc 33 g/dl (31-36); Mean Corpuscular Hemoglobin 28 pg (27-31); Mean Corpuscular Volume 85 fL (80-94); Mean Platelet Volume 7.9 fL (7.4-10.4); Nucleated Red Blood Cells % 0.1; Platelet Count 176 10^3/ul (150-450); Red Blood Count 3.93 10^6/ul (4.00-5.40); Red Cell Distribution Width 17 % (10.5-15); White Blood Count 5.6 10^3/ul (3.5-10.8)
[2018-08-11 05:08] LABS: EGFR Non-African American 10.8 (>60)
--- NOTE | 2018-08-11 07:34 | PN ---
Subjective Date of Service: 08/11/18 Interval History: clinical assessment code zuleyma this is a 52 yr old wm with hx of dm and psy hx was here for his psy problem. clinical assessment code called because pt c/o sob and llq pain and vomited some food he ate earlier. pt vital is stable his lung sounds clear. he ate two sandwiches in the er and seems to tolerated until few hours afterwards. bmp was done f/s came back 297 ( was in the 60s and 200s. ) stat labs done did not reveal acute change compared to his baseline. abd exam reveal ? llq tenderness but otherwise benign abd exam ---> ct of abd offered but declined by pt. this medical writer went back to check on him close to 7 am he was found resting comfortably in bed with no complaints at all... will moniter Objective Active Medications: Acetaminophen (Tylenol Tab*) 650 mg PO Q4H PRN PRN Reason: FEVER/PAIN Last Admin: 08/11/18 01:35 Dose: 650 mg Al Hydrox/Mg Hydrox/Simethicone (Maalox Plus*) 30 ml PO Q4H PRN PRN Reason: INDIGESTION Atorvastatin Calcium (Lipitor*) 10 mg PO DAILY JOSE ENRIQUE Calcium Acetate (Phoslo Cap*) 667 mg PO AC JOSE ENRIQUE Device (Nicotine Mouth Piece*) 1 each INH .CARTRIDGE JOSE ENRIQUE Famotidine (Pepcid Tab*) 20 mg PO DAILY JOSE ENRIQUE Furosemide (Lasix Tab*) 40 mg PO BID JOSE ENRIQUE Hydralazine HCl (Apresoline Tab*) 10 mg PO BID JOSE ENRIQUE Insulin Human Lispro (Humalog*) 0 units SUBCUT ACHS JOSE ENRIQUE; Protocol Metoprolol Tartrate (Lopressor Tab*) 12.5 mg PO Q12HR JOSE ENRIQUE Nicotine (Nicotine Inhaler*) 10 mg INH Q2H PRN PRN Reason: CRAVING Nicotine (Nicotine Patch 21 Mg/24 Hr*) 1 patch TRANSDERM DAILY JOSE ENRIQUE Nicotine Polacrilex (Nicotine Gum*) 2 mg PO Q2H PRN PRN Reason: CRAVING Ondansetron HCl (Zofran Odt Tab*) 4 mg PO Q6H PRN PRN Reason: NAUSEA Sertraline HCl (Zoloft*) 50 mg PO DAILY [facility] Vital Signs - 8 hr 08/11/18 08/11/18 08/11/18 01:15 01:32 01:35 Temperature 0 F 96.8 F Pulse Rate 0 92 Respiratory 0 16 16 Rate Blood Pressure 0/0 155/96 (mmHg) O2 Sat by Pulse 0 96 Oximetry 08/11/18 08/11/18 08/11/18 04:09 04:16 04:57 Temperature 96.8 F Pulse Rate 90 82 92 Respiratory 18 18 16 Rate Blood Pressure 151/83 156/77 155/96 (mmHg) O2 Sat by Pulse 99 96 96 Oximetry Oxygen Devices in Use Now: None Result Diagrams: 08/11/18 04:15 08/11/18 04:15 Additional Lab and Data: Lab Results 08/10/18 08/10/18 08/10/18 Range/Units 14:43 14:56 14:56 WBC 6.3 (3.5-10.8) 10^3/ul RBC 4.24 (4.00-5.40) 10^6/ul Hgb 11.6 L (14.0-18.0) g/dl Hct 35 L (42-52) % MCV 83 (80-94) fL MCH 27 (27-31) pg MCHC 33 (31-36) g/dl RDW 17 H (10.5-15) % Plt Count 193 (150-450) 10^3/ul MPV 7.9 (7.4-10.4) fL Neut % (Auto) 74.7 (38-83) % Lymph % (Auto) 15.5 L (25-47) % Sharkey % (Auto) 8.3 H (0-7) % Eos % (Auto) 1.0 (0-6) % Baso % (Auto) 0.5 (0-2) % Absolute Neuts (auto) 4.7 (1.5-7.7) 10^3/ul Absolute Lymphs (auto) 1.0 (1.0-4.8) 10^3/ul Absolute Monos (auto) 0.5 (0-0.8) 10^3/ul Absolute Eos (auto) 0.1 (0-0.6) 10^3/ul Absolute Basos (auto) 0 (0-0.2) 10^3/ul Absolute Nucleated RBC 0 10^3/ul Nucleated RBC % 0.2 INR (Anticoag Therapy) 1.00 (0.77-1.02) APTT 29.1 (26.0-36.3) seconds Sodium 136 (135-145) mmol/L Potassium 4.0 (3.5-5.0) mmol/L Chloride 104 (101-111) mmol/L Carbon Dioxide 22 (22-32) mmol/L Anion Gap 10 (2-11) mmol/L BUN 44 H (6-24) mg/dL Creatinine 4.71 H (0.67-1.17) mg/dL Est GFR ( Amer) 16.0 (>60) Est GFR (Non-Af Amer) 13.2 (>60) BUN/Creatinine Ratio 9.3 (8-20) Glucose 160 H (70-100) mg/dL Lactic Acid (0.5-2.0) mmol/L Calcium 9.8 (8.6-10.3) mg/dL Magnesium 1.6 L (1.9-2.7) mg/dL Total Bilirubin 0.40 (0.2-1.0) mg/dL AST 19 (13-39) U/L ALT 13 (7-52) U/L Alkaline Phosphatase 96 (34-104) U/L Total Creatine Kinase 61 (10-223) U/L CK-MB (CK-2) 1.6 (0.6-6.3) ng/mL Troponin I 0.01 (<0.04) ng/mL B-Natriuretic Peptide (<=100) pg/mL Total Protein 7.5 (6.4-8.9) g/dL Albumin 3.4 (3.2-5.2) g/dL Globulin 4.1 H (2-4) g/dL Albumin/Globulin Ratio 0.8 L (1-3) TSH Pending Salicylates Pending Acetaminophen Pending Serum Alcohol Pending 08/10/18 08/10/18 Range/Units 14:56 14:56 WBC (3.5-10.8) 10^3/ul RBC (4.00-5.40) 10^6/ul Hgb (14.0-18.0) g/dl Hct (42-52) % MCV (80-94) fL MCH (27-31) pg MCHC (31-36) g/dl RDW (10.5-15) % Plt Count (150-450) 10^3/ul MPV (7.4-10.4) fL Neut % (Auto) (38-83) % Lymph % (Auto) (25-47) % Sharkey % (Auto) (0-7) % Eos % (Auto) (0-6) % Baso % (Auto) (0-2) % Absolute Neuts (auto) (1.5-7.7) 10^3/ul Absolute Lymphs (auto) (1.0-4.8) 10^3/ul Absolute Monos (auto) (0-0.8) 10^3/ul Absolute Eos (auto) (0-0.6) 10^3/ul Absolute Basos (auto) (0-0.2) 10^3/ul Absolute Nucleated RBC 10^3/ul Nucleated RBC % INR (Anticoag Therapy) (0.77-1.02) APTT (26.0-36.3) seconds Sodium (135-145) mmol/L Potassium (3.5-5.0) mmol/L Chloride (101-111) mmol/L Carbon Dioxide (22-32) mmol/L Anion Gap (2-11) mmol/L BUN (6-24) mg/dL Creatinine (0.67-1.17) mg/dL Est GFR ( Amer) (>60) Est GFR (Non-Af Amer) (>60) BUN/Creatinine Ratio (8-20) Glucose (70-100) mg/dL Lactic Acid 1.5 (0.5-2.0) mmol/L Calcium (8.6-10.3) mg/dL Magnesium (1.9-2.7) mg/dL Total Bilirubin (0.2-1.0) mg/dL AST (13-39) U/L ALT (7-52) U/L Alkaline Phosphatase (34-104) U/L Total Creatine Kinase (10-223) U/L CK-MB (CK-2) (0.6-6.3) ng/mL Troponin I (<0.04) ng/mL B-Natriuretic Peptide 204 H (<=100) pg/mL Total Protein (6.4-8.9) g/dL Albumin (3.2-5.2) g/dL Globulin (2-4) g/dL Albumin/Globulin Ratio (1-3) TSH Salicylates Acetaminophen Serum Alcohol Assess/Plan/Problems-Billing Assessment:
[2018-08-11] MEDS: Insulin LISPRO* 1 UNITS UNIT SUBCUT SCH ×5 (07:47→21:35)
[2018-08-11] MEDS: Famotidine TAB* 20 MG PO SCH (08:43)
[2018-08-11] MEDS: hydrALAZINE TAB* 10 MG PO SCH ×2 (08:43→21:01)
[2018-08-11] MEDS: Furosemide TAB* 40 MG PO SCH ×2 (08:43→21:02)
[2018-08-11] MEDS: Metoprolol Tartrate TAB* 25 MG PO SCH ×2 (08:43→21:02)
[2018-08-11] MEDS: Calcium Acetate CAP* 667 MG PO SCH ×3 (08:43→17:04)
[2018-08-11] MEDS: Atorvastatin* 10 MG TAB PO SCH (08:44)
[2018-08-11] MEDS: Sertraline* 50 MG TAB PO SCH (08:44)
[2018-08-11] MEDS: Nicotine PATCH 21 MG/24 HR* PATCH TRANSDERM SCH ×2 (08:44→08:52)
[2018-08-11] MEDS ORDERED: Insulin GLARGINE(*) 1 UNITS UNIT SUBCUT SCH (09:00)
[2018-08-11] MEDS: Ondansetron ODT TAB* 4 MG PO PRN ×2 (17:30→23:04)
[2018-08-11] MEDS ORDERED: Metoprolol/HCTZ 50/25 (NF) 1 TAB PO ONE (19:32)
[2018-08-11] MEDS: Loperamide CAP* 2 MG PO PRN ×2 (21:02→23:03)
--- NOTE | 2018-08-11 21:24 | HP ---
HISTORY AND PHYSICAL: DATE OF ADMISSION: IDENTIFYING DATA: Tanner is a 52-year-old, , physically disabled white male with extens lucy history of type 2 diabetes mellitus, uncontrolled in the past resulting in chronic kidney failure and amputation of part of both feet, came to the emergency room, brought in by ambulance, complainin g of chest pain. He was evaluated in the emergency department and cleared for any cardiac events. D uring the evaluation, he mentioned about experiencing frequent anxiety attacks and feeling sad due to the of a very close friend. He also mentioned that he should have been the one to , not hi s friend that triggered the mental health evaluation. During the evaluation, Tanner was emotion al and mentioned that he wished he was and maybe if he goes home, he might shoot himself high do ses of insulin to end his life, as he did back in s. Otherwise, he denied any ongoing symptoms of mood dysregulation, hallucinations, delusions or homicidal ideation. He had few stressors, which was on his mind on a constant basis including a possibility of being evicted at the end of this month and not having any place to go and he was being taunted by other residents in the same building. Otherw ise, he reports that he was in normal state of mind, taking care of himself to the best of his abilit ies, going to see his doctors including his biological science aide, shipping and receiving specialist, and so on. PAST PSYCHIATRIC HISTORY: Unremarkable as he was never treated for mental health problems. PAST MEDICAL HISTORY: As mentioned earlier, he has a diagnosis of CKD, stage 5; type 2 diabetes akash itus associated with bilateral tarsometatarsal foot amputations; hypertension; anemia. MEDICATIONS: He has a long list of medications, which are mostly related to his chronic physical [facility] conditions and the list includes: 1. Simvastatin 20 mg p.o. daily. 2. Zoloft 50 mg p.o. daily. 3. Ranitidine 150 mg p.o. b.i.d. 4. Metoprolol tartrate 12.5 mg p.o. q.12 hours. 5. Floranex tablet, 2 tablets daily. 6. Novolin R insulin 10 units subcutaneously t.i.d. 7. Lantus insulin 45 units subcutaneously daily. 8. Furosemide 40 mg p.o. b.i.d. 9. Keflex 500 mg p.o. b.i.d. 10. Calcium acetate 667 mg p.o. q.a.c. 11. Tylenol 650 mg p.o. q.6 hours p.r.n. ALLERGIES: PEANUTS, SPINACH, STRAWBERRY, and SULFA DRUGS. SUBSTANCE ABUSE HISTORY: No drug and alcohol use for almost 8 years now. Tanner reports that he used to be a social drinker for years, drinking mostly during the weekends, never used any other str eet drugs. He also does not smoke anymore. FAMILY PSYCHIATRIC HISTORY: Unremarkable. SOCIAL HISTORY: Tanner was born and brought up in [place]. He graduated from high school and had 2 years of college education in business. 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 He was for 18 years, which ended up in a divorce. He d oes not have any children. He has few friends now in the community, one of whom recently. PHYSICAL EXAMINATION GENERAL: Tanner was sitting on his bed during the examination. He was not in any acute physica l distress. VITAL SIGNS: Unremarkable with a blood pressure of 123/70, pulse rate 82, temperature 98.7, respirat ory rate 16, O2 sat 96% on room air. Physical exam was limited because of the patient's request; how ever, other than having amputated partial foot bilaterally, his physical exam was unremarkable. LUNGS: His chest exam was unremarkable with bilateral air entry without crepitations or wheezing. HEART: Heart rate was regular with S1 and S2 only. No murmur, rub, or gallop. EXTREMITIES: As mentioned, has cast and bandages on both lower extremities. MENTAL STATUS EXAMINATION: Tall, obese, healthy-appearing white male, who is alert and oriented to time, place, and person. Speech is normal in all spheres. Made good eye contact. Described his moo d as "okay." Observed affect appeared within normal range and euthymic. There was no evidence of garay llucinations, delusions, or obsessions. He denied experiencing any of the above. Also denied having any thoughts of harming self or others. His intelligence appeared to be average as evidenced by his vocabulary and fund of knowledge. Memory functions were intact in all spheres. Insight and judgmen t were fair to good. IMPRESSION: This 52-year-old male with multiple chronic disabling medical conditions and n o history or evidence of serious mental illness, who came to the emergency room with chest pain and m mattbe severe anxiety related to chest pain, verbalized passive suicidal thoughts resulting in admissio n to the [facility]. DIAGNOSTIC IMPRESSIONS: Mental Health Diagnosis: Adjustment disorder with depressed mood, rule out major depressive disorder. Physical Health Diagnoses: Chronic kidney disease, stage 5; type 2 diabetes mellitus, resulting in b ilateral tarsometatarsal foot amputations; hypertension; anemia. TREATMENT RECOMMENDATIONS: Tanner will remain hospitalized on the behavioral science unit for f urther observation and supportive care. His code status will remain full. Milieu, group, and indivi dual therapy will be provided as per unit protocol. I will continue him on all his outpatient medica tions including Zoloft and will defer any changes in his medication to his assigned psychiatrist on t he unit. The emergency room personnel and rest of the medical team were very kind and helpful last n ight and verbalized their willingness to help if there is a need from medical standpoint. [id number]/[facility] #: [id number]
[2018-08-12] MEDS ORDERED: Gabapentin CAP(*) 300 MG ONE (00:02)
[2018-08-12] MEDS: Gabapentin CAP(*) 300 MG PO PRN ×2 (02:05→11:20)
[2018-08-12] MEDS: Loperamide CAP* 2 MG PO PRN ×4 (03:25→22:19)
[2018-08-12] MEDS: Insulin LISPRO* 1 UNITS UNIT SUBCUT SCH ×4 (11:15→21:36)
[2018-08-12] MEDS: Sertraline* 50 MG TAB PO SCH (11:16)
[2018-08-12] MEDS: Calcium Acetate CAP* 667 MG PO SCH ×3 (11:16→17:21)
[2018-08-12] MEDS: Nicotine PATCH 21 MG/24 HR* PATCH TRANSDERM SCH (11:16)
[2018-08-12] MEDS: hydrALAZINE TAB* 10 MG PO SCH ×2 (11:27→21:45)
[2018-08-12] MEDS: Metoprolol Tartrate TAB* 25 MG PO SCH ×2 (11:27→21:43)
[2018-08-12] MEDS: Famotidine TAB* 20 MG PO SCH (11:27)
[2018-08-12] MEDS: Atorvastatin* 10 MG TAB PO SCH (11:27)
[2018-08-12] MEDS: Furosemide TAB* 40 MG PO SCH ×2 (11:27→21:45)
--- NOTE | 2018-08-12 12:26 | PN ---
Progress Note - Progress Note Date of Service: 08/12/18 Note: I was asked to see Tanner because there were concerns that he got his cast wet while washing his hands. He gets weekly TCC with Dr. Galarza for a diabetic foot ulcer. Upon my examination, there is no obvious wetness or moisture in the cast. The plan is for his discharge tomorrow. I will see him in the office tomorrow and do a cast change. If he does end up staying in the hospital longer, please let us know and we will arrange to have his cast changed in house. Jayson Alba MD
[2018-08-12] MEDS: Ondansetron ODT TAB* 4 MG PO PRN ×2 (18:33→19:11)
[2018-08-13] MEDS: Famotidine TAB* 20 MG PO SCH (08:47)
[2018-08-13] MEDS: Atorvastatin* 10 MG TAB PO SCH (08:47)
[2018-08-13] MEDS: hydrALAZINE TAB* 10 MG PO SCH (08:47)
[2018-08-13] MEDS: Furosemide TAB* 40 MG PO SCH (08:47)
[2018-08-13] MEDS: Calcium Acetate CAP* 667 MG PO SCH (08:47)
[2018-08-13] MEDS: Nicotine PATCH 21 MG/24 HR* PATCH TRANSDERM SCH (08:47)
[2018-08-13] MEDS: Insulin LISPRO* 1 UNITS UNIT SUBCUT SCH ×2 (08:47→12:30)
[2018-08-13] MEDS: Sertraline* 50 MG TAB PO SCH (08:47)
[2018-08-13] MEDS: Metoprolol Tartrate TAB* 25 MG PO SCH (08:47)
[2018-08-13 09:05] VITALS: BP 154/84
[2018-08-13] MEDS ORDERED: hydrOXYzine HCL TAB* 50 MG PO PRN (10:51)
--- NOTE | 2018-08-14 08:17 | DS ---
DISCHARGE SUMMARY: DATE OF ADMISSION: 08/11/18 DATE OF DISCHARGE: 08/13/18 PROVIDER: Lydia Cruz NP in Psychiatry. SUPERVISING PHYSICIAN: Sai Ralph MD DIAGNOSES: Camden I: Depressive disorder, not otherwise specified. Camden II: Deferred. Camden III: Multiple, including hypertension, type 2 diabetes, 2 foot amputations, osteomyelitis history, hyperlipidemia, gastroesophageal reflux disease, obesity, cataracts. CONDITION AT THE TIME OF DISCHARGE: Xu is improved. He is psychiatrically cleared and stable. He participated in few groups, was not particularly social with peers. He is estranged from his family. He has done well here psychiatrically. No new meds were added other than hydroxyzine. He will attend [facility] after he has his housing situation figured out and will go directly to Dr. Alba for wound re-dressing. MENTAL STATUS EXAM: At the time of discharge, Xu is calm, cooperative, and makes good eye contact. He is alert and oriented x3. His grooming is good. His speech phase is normal. His thought processes are logical. He is not psychotic or delusional. He denies AH, VH, SI and HI. Insight and judgement are good. He is willing to follow up and he is urged to see a therapist. DISCHARGE INSTRUCTIONS: A. Medications: 1. Tylenol 650 q.4 hours. 2. Calcium acetate cap 667 mg before meals. 3. Furosemide 40 mg b.i.d. 4. Hydralazine 10 mg b.i.d. 5. Hydroxyzine 50 mg q.6 hours p.r.n. anxiety. 6. Insulin regular 100 units per mL vial, 10 units subcutaneously t.i.d. 7. Acidophilus bulgaricus tablets 2 to chew p.o. daily for 18 days. 8. Metoprolol 12.5 mg q.12 hours. 9. Sertraline 50 mg daily. 10. Simvastatin 20 mg daily. B. Diet: diabetic. C. Activity: As tolerated. Xu is a smoker. He has declined the referral to [facility] Smokers' Quitline at this time and he decides to access this free service in the future. He can contact the Quitline at [phone]. There are no studies pending at the time of discharge. D. Followup Care: He will follow up with [facility] on at 9:45. He has an appointment with Dr. Jayson Alba at 1:[address] Morrison is the primary care provider who can be followed up with as needed. E. Substance abuse followup is not indicated. HOSPITAL COURSE: Part A: Identifying Data: Tanner is a 52-year-old , physically disabled white male with extensive history of type 2 diabetes, uncontrolled in the past, resulting in chronic kidney failure and amputation of part of both feet, who came to the emergency room, brought in by ambulance, complaining of chest pain. He was evaluated in the emergency department and cleared for any cardiac events. During the evaluation, he mentioned about experiencing frequent anxiety attacks and feeling sad due to the of a very close friend. He also mentioned that he should have been the one to , not his friend and that triggered a mental health evaluation. During the evaluation, Tanner was emotional and mentioned that he wished he was and maybe if he goes home he might shoot himself high doses of insulin to end his life, as he did back in the 90s . Otherwise, he denied any ongoing symptoms of mood dysregulation, hallucinations, delusions or homicidal ideations. He has a few stressors, which were on his mind on a constant basis including the possibility of being evicted at the end of this month and not having any place to go and he was being taunted by other residents in the same building. Otherwise he reports that he was in normal state of mind, taking care of himself to the best of his abilities, going to see his doctors including his guide cruise, senior specialist and so on. Part B: Psychiatric treatment was rendered. Xu was admitted to the adult behavioral health unit and placed on 15-minute checks for safety. He did okay on the unit although he did not want to be here. He interacted with peers adequately. There was only hydroxyzine started. Other medical medications were started in the hospital and were sent home with him. He was tearful when discussing his friend who suicided in the past. He had a friend who shot himself in the head when he was in his teens or 20s and that has made it very difficult for Xu to return to the family farm where it occurred. He also had a friend who of a heart attack who was quite young. Xu feels as though it might have been more equitable for him to as he is so ill and his friend seemed so well and had a child. He does not consider this a suicidal thought as he has no intent. He was here over the weekend and found that he was getting frustrated and found the constriction and confining atmosphere to be intolerable. He agreed to be discharged this morning and also agreed to go to see Dr. Jayson Alba to attend to the wound on his right foot; the cast had softened. LYDIA CRUZ, SONYA [id number]/[facility] #: [id number] KEDAR
== END 2018-08-13 13:15 | disposition home or self-care (01) | DRG 881 ==
LOC: ED 14:15 → BSU 08-11 01:36
PROVIDERS: ADMIT Psychiatry & Neurology Psychiatry; ATTEND Psychiatry & Neurology Psychiatry
DX: F32.9 Major depressive disorder, single episode, unspecified (principal); Z68.41 Body mass index [BMI] 40.0-44.9, adult; R45.851 Suicidal ideations; I12.0 Hypertensive chronic kidney disease with stage 5 chronic kidney disease or end stage renal disease; N18.5 Chronic kidney disease, stage 5; E11.22 Type 2 diabetes mellitus with diabetic chronic kidney disease; E11.621 Type 2 diabetes mellitus with foot ulcer; E11.65 Type 2 diabetes mellitus with hyperglycemia; E11.9 Type 2 diabetes mellitus without complications; E78.5 Hyperlipidemia, unspecified; K21.9 Gastro-esophageal reflux disease without esophagitis; E66.9 Obesity, unspecified; D64.9 Anemia, unspecified; Z89.432 Acquired absence of left foot; Z89.431 Acquired absence of right foot; Z79.1 Long term (current) use of non-steroidal anti-inflammatories (NSAID); Z79.4 Long term (current) use of insulin; Z79.899 Other long term (current) drug therapy; Z91.010 Allergy to peanuts; Z88.2 Allergy status to sulfonamides; Z91.018 Allergy to other foods; Z87.891 Personal history of nicotine dependence
CPT/HCPCS: 36415; 71045; 74019; 80053; 80320; 80329; 82550; 82553; 82947; 83605; 83735; 83880; 84443; 84484; 85025; 85610; 85730; 86850; 86900; 86901; 93005; 94660; 99222; 99238; 99284; A9270-GY; G0480; J2060; J3475

== ENCOUNTER 2018-09-05 16:32 | Emergency (ER) | payer MEDICARE, MEDICAID ==
--- OUTSIDE RECORDS SUMMARY | 2018-09-05 16:44 | XMS REPORT | Continuity of Care Document ---
:1965 External Reference #:[id number] Author Name Zoraida Galo Care Team Providers Name Role Phone Siddhartha Morrison D.O. Primary Care Physician Unavailable Payers Type Date Identification Numbers Payment Provider Subscriber Effective: Policy Number: [id number] Medicare Ammon Galo 2011 PayID: [id number] [address] [place] [address] Policy Number: [id number] Medicaid Ammon Galo PayID: [id number] [address] [place] [address] Advance Directives Description No Information Available Problems Date Description Provider Status Onset: 12/01/2015 Disturbance in sleep behavior Gayatri Grullon MD Active Onset: 12/01/2015 Morbid obesity Gayatri Grullon MD Active Family History Date Family Member(s) Problem(s) Comments General Heart Disease General Cancer General Diabetes General Hypertension Father Alzheimer's Disease Mother Merari Alejo Social History Type Date Description Comments Sex Unknown Marital Status Lives With Alone Occupation Disabled Cigarette Use Quit 6 Years Ago ETOH Use Occasionally consumes alcohol Tobacco Use Start: Unknown Patient is a former quit smoking and chews End: Unknown smoker now occassionally Smoking Status Reviewed: 09/05/18 Patient is a former quit smoking and chews smoker now occassionally Exercise Does not exercise Type/Frequency Allergies, Adverse Reactions, Alerts Date Description Reaction Status Severity Comments 05/02/2013 Codeine Active 10/29/2015 Peanut Oil Active 12/01/2015 Strawberries Active Swelling tongue 12/01/2015 Chocolate Active Lips swelling 01/12/2016 Sulfamethoxazole/Trimethoprim Active rash Medications Medication Date Status Form Strength Qnty SIG Indications Ordering Provider Gabapentin 12/03 Active Capsules 300mg 60cap take one M86.671 s capsule twice Geovanni, a day M.D. Procardia XL Active Tablets ER 30mg 90tab every day by 24HR s mouth Lisinopril-Hyd Active Tablets 20-25mg 30tab 1 po daily Unknown rochlorothiaz s de Novolin R Active Solution 100Unit/M sliding scale Unknown / L as needed Vitamin B12 Active Tablets ER 1 by mouth Unknown / every day Basaglar Active Solution 100Unit/M Inject 64 Unknown Kwik Pen-Inject L Units Beneath The Skin Daily AT Bedtime Furosemide Active Tablets 40mg 1 by mouth Unknown bid Gabapentin 07/11 Hx Capsules 300mg 60cap take one M86.671 s capsule twice Geovanni, - a day M.D. 08/21 Keflex 04/17 Hx Capsules 500mg 30cap 1 by mouth L97.518 s three times a Geovanni, - day M.D. 07/11 Levofloxacin 02/27 Hx Tablets 500mg 14tab 1 by mouth Z86.19 Doug s every day D. - Donnie, 04/16 M.D. Keflex 01/04 Hx Capsules 500mg [...] by mouth s every day D. - [facility], 01/26 M.D. Vancomycin HCL 12/02 Hx Solution 1500mg QS iv every 24 Rec hours through D. - advanced care [facility] [place], 12/19 home infusion . Ceftriaxone 12/02 Hx Solution 2gm iv every 24 Rec hours through D. - [facility] [place], 01/26 Home Infusion .D Bactrim DS 12/21 Hx Tablets 800-160mg 42tab 1 by mouth s three times a D. - day Donnie, 01/11 M.D. Tradjenta Hx Tablets 10mg 90tab 1 po qd s - 01/10 Depo-Testoster Hx Oil 200mg/ml as directed Unknown subQ - 11/[address] 20mg 90cap every day by s mouth - 04/16 Oxygen Hx 2LPM as directed at night - 01/10 Vancomycin HCL 11/10 Hx Solution 1500mg QS iv every 12 Rec hours x 42 D. - days through [facility] [place], 12/14 Aci Ciprofloxacin 11/03 Hx Tablets 750mg 84tab 1 by mouth s twice a day x D. - 42 days [facility] [place], 12/21 (start this .D when you start IV antibiotic infusions) Lisinopril Hx Tablets 10mg 30tab 1 po qd Unknown /0000 s - 04/23 Amlodipine Hx Tablets 5mg 90tab 1 po qd Unknown Besylate /0000 s - 04/23 Lantus Hx Solution 100Unit/M 6Vial sliding scale Unknown /0000 L s - 04/23 Humulin R 00 Hx Solution 100Unit/M 1unit siding scale Unknown /0000 L s - 04/23 Doxycycline 00 Hx Capsules 100mg 14cap Unknown Hyclate /0000 s - 11/10 Bydureon Hx Suspension 2mg 4unit inject Unknown /0000 Rec s contents of 1 - vial 02/26 subcutaneousl y every 7 days Lantus 00 Hx Solution 100Unit/M 2vial as directed Unknown /0000 L s - Benadryl Hx Tablets 25mg as needed Unknown Allergy /0000 - 01/10 Vancomycin HCL 00 Hx Solution 1000mg iv every 24 Unknown /0000 Rec hours - 12/21 Truejayo Hx SQ once daily SQ Unknown / - 02/05 Zosyn Hx Solution 10.125gm continuous Unknown / Rec infusion x 14 - days through 03/26 Ac /2016 Tums Hx Chewtabs 500mg 2 chewtabs by Unknown /0000 mouth as - needed 04/16 Gabapentin Hx Capsules 300mg take 1 Unknown /0000 capsule by - mouth three 06/18 times a day /2018 Immunizations CPT Code Status Date Vaccine Lot # [id number] Given 12/01/2015 Fluvirin Im 3Yrs And Older Vital Signs Date Vital Result Comment 09/05/2018 3:13pm Height 75.75 inches 6'3.75" Weight 402.00 lb Heart Rate 78 /min BP Systolic Sitting 120 mmHg BP Diastolic Sitting 76 mmHg Respiratory Rate 16 /min Pain Level 0 BMI (Body Mass Index) 49.3 kg/m2 08/29/2018 2:51pm Height 75.75 inches 6'3.75" Weight 402.00 lb BP Systolic 118 mmHg BP Diastolic 78 mmHg Pain Level 0 BMI (Body Mass Index) 49.3 kg/m2 08/22/2018 2:08pm Height 75.75 inches 6'3.75" Heart Rate 88 /min BP Systolic Sitting 114 mmHg BP Diastolic Sitting 96 mmHg Respiratory Rate 16 /min Pain Level 0 08/13/2018 1:54pm Height 75.75 inches 6'3.75" Weight 402.00 lb Heart Rate 72 /min Respiratory Rate 18 /min Body Temperature 96.0 F Pain Level 6 BMI (Body Mass Index) 49.3 kg/m2 08/08/2018 11:16am Height 75.75 inches 6'3.75" Weight 402.00 lb BP Systolic 134 mmHg BP Diastolic 86 mmHg Body Temperature 98.6 F BMI (Body Mass Index) 49.3 kg/m2 07/27/2018 10:53am Heart Rate 72 /min Respiratory Rate 16 /min Pain Level 0 07/18/2018 2:04pm Height 75.75 inches 6'3.75" Weight 402.00 lb BP Systolic Sitting 128 mmHg BP Diastolic Sitting 80 mmHg Respiratory Rate 17 /min Pain Level 0 BMI (Body Mass Index) 49.3 kg/m2 07/11/2018 10:50am Height 75.75 inches 6'3.75" Weight 402.00 lb BP Systolic Sitting 142 mmHg BP Diastolic Sitting 78 mmHg Respiratory Rate 17 /min Pain Level 0 BMI (Body Mass Index) 49.3 kg/m2 06/19/2018 10:31am Height 75.75 inches 6'3.75" Weight 402.00 lb Heart Rate 64 /min BP Systolic Sitting 142 mmHg BP Diastolic Sitting 82 mmHg Pain Level 0 O2 % BldC Oximetry 89 % Room Air BMI (Body Mass Index) 49.3 kg/m2 04/17/2018 10:11am Height 75.75 inches 6'3.75" Weight 350.00 lb Heart Rate 76 /min BP Systolic 168 mmHg BP Diastolic 100 mmHg Respiratory Rate 12 /min Body Temperature 97.1 F Pain Level 0 BMI (Body Mass Index) 42.9 kg/m2 03/20/2018 9:36am Height 75.75 inches 6'3.75" Heart Rate 86 /min BP Systolic 142 mmHg BP Diastolic 76 mmHg Respiratory Rate 17 /min Body Temperature 97.8 F Pain Level 5 02/27/2018 11:00am Height 75.75 inches 6'3.75" Weight 363.00 lb Heart Rate 96 /min BP Systolic Sitting 154 mmHg BP Diastolic Sitting 82 mmHg Respiratory Rate 14 /min Body Temperature 98.2 F BMI (Body Mass Index) 44.5 kg/m2 02/14/2018 1:03pm Height 75.75 inches 6'3.75" Weight 360.00 lb Heart Rate 86 /min BP Systolic Sitting 136 mmHg BP Diastolic Sitting 80 mmHg Respiratory Rate 16 /min Pain Level 0 BMI (Body Mass Index) 44.1 kg/m2 01/25/2018 8:41am Height 75.75 inches 6'3.75" Weight 363.00 lb BP Systolic 132 mmHg BP Diastolic 76 mmHg Respiratory Rate 20 /min Body Temperature 97.6 F Pain Level 7 BMI (Body Mass Index) 44.5 kg/m2 01/11/2018 10:09am Height 75.75 inches 6'3.75" Weight 363.00 lb Heart Rate 65 /min BP Systolic 128 mmHg BP Diastolic 82 mmHg Respiratory Rate 18 /min Body Temperature 97.1 F Pain Level 0 BMI (Body Mass Index) 44.5 kg/m2 01/02/2018 11:37am Height 75.75 inches 6'3.75" Heart Rate 78 /min Respiratory Rate 17 /min Body Temperature 96.9 F Pain Level 0 12/28/2017 11:27am Height 75.75 inches 6'3.75" Weight 363.00 lb BP Systolic 128 mmHg BP Diastolic 72 mmHg Respiratory Rate 18 /min Body Temperature 98.1 F Pain Level 0 BMI (Body Mass Index) 44.5 kg/m2 11/16/2017 10:38am Height 75.75 inches 6'3.75" Weight 363.00 lb Heart Rate 76 /min Respiratory Rate 17 /min Body Temperature 97.9 F Pain Level 0 BMI (Body Mass Index) 44.5 kg/m2 11/07/2017 10:27am Height 75.75 inches 6'3.75" Heart Rate 72 /min BP Systolic 142 mmHg BP Diastolic 90 mmHg Respiratory Rate 17 /min Body Temperature 98.0 F Pain Level 0 10/26/2017 9:51am Height 75.75 inches 6'3.75" Weight 363.00 lb BP Systolic 130 mmHg BP Diastolic 64 mmHg Respiratory Rate 17 /min Body Temperature 96.3 F Pain Level 7 BMI (Body Mass Index) 44.5 kg/m2 05/23/2017 11:04am Height 75.75 inches 6'3.75" Weight 363.00 lb Heart Rate 96 /min BP Systolic Sitting 148 mmHg BP Diastolic Sitting 90 mmHg Respiratory Rate 16 /min Body Temperature 97.9 F BMI (Body Mass Index) 44.5 kg/m2 04/19/2017 1:01pm Height 75.75 inches 6'3.75" Weight 345.00 lb Heart Rate 88 /min Respiratory Rate 17 /min Body Temperature 98.2 F Pain Level 0 BMI (Body Mass Index) 42.3 kg/m2 03/27/2017 2:26pm Height 75.75 inches 6'3.75" Weight 343.00 lb Heart Rate 84 /min BP Systolic Sitting 110 mmHg BP Diastolic Sitting 62 mmHg Respiratory Rate 16 /min Body Temperature 97.9 F BMI (Body Mass Index) 42.0 kg/m2 03/23/2017 10:05am Height 75.75 inches 6'3.75" Weight 362.00 lb Heart Rate 92 /min BP Systolic 140 mmHg BP Diastolic 96 mmHg Respiratory Rate 18 /min Body Temperature 96.7 F Pain Level 0 BMI (Body Mass Index) 44.4 kg/m2 02/23/2017 10:56am Height 75.75 inches 6'3.75" Weight 362.00 lb Body Temperature 97.4 F Pain Level 0 BMI (Body Mass Index) 44.4 kg/m2 02/07/2017 10:26am Height 75.75 inches 6'3.75" Weight 362.00 lb Heart Rate 104 /min BP Systolic 115 mmHg BP Diastolic 81 mmHg Body Temperature 97.5 F Pain Level 0 BMI (Body Mass Index) 44.4 kg/m2 01/11/2017 9:03am Height 75.75 inches 6'3.75" Weight 362.00 lb Heart Rate 93 /min BP Systolic 112 mmHg BP Diastolic 72 mmHg Respiratory Rate 20 /min Pain Level 0 O2 % BldC Oximetry 98 % BMI (Body Mass Index) 44.4 kg/m2 12/26/2016 12:45pm Height 77 inches 6'5" Weight 348.00 lb Heart Rate 96 /min BP Systolic Sitting 140 mmHg BP Diastolic Sitting 80 mmHg Respiratory Rate 14 /min Body Temperature 97.7 F O2 % BldC Oximetry 97 % BMI (Body Mass Index) 41.3 kg/m2 11/29/2016 9:26am Height 77 inches 6'5" Weight 358.38 lb Heart Rate 96 /min BP Systolic Sitting 152 mmHg BP Diastolic Sitting 96 mmHg Respiratory Rate 16 /min Body Temperature 97.0 F BMI (Body Mass Index) 42.5 kg/m2 01/12/2016 11:08am Height 77 inches 6'5" Weight 374.00 lb Heart Rate 80 /min BP Systolic Sitting 138 mmHg BP Diastolic Sitting 90 mmHg Respiratory Rate 14 /min Body Temperature 97.9 F BMI (Body Mass Index) 44.3 kg/m2 12/01/2015 11:00am Height 77 inches 6'5" Weight 374.00 lb Heart Rate 85 /min BP Systolic Sitting 154 mmHg BP Diastolic Sitting 82 mmHg Respiratory Rate 18 /min O2 % BldC Oximetry 98 % BMI (Body Mass Index) 44.3 kg/m2 Neck Circumference in inches 18.5 12/01/2015 10:13am Height 77 inches 6'5" Weight 374.00 lb Heart Rate 80 /min BP Systolic Sitting 136 mmHg BP Diastolic Sitting 92 mmHg Respiratory Rate 14 /min Body Temperature 98.2 F BMI (Body Mass Index) 44.3 kg/m2 10/29/2015 4:00pm Height 77 inches 6'5" Weight 369.38 lb Heart Rate 80 /min BP Systolic Sitting 152 mmHg BP Diastolic Sitting 80 mmHg Respiratory Rate 14 /min Body Temperature 97.3 F Pain Level 0 BMI (Body Mass Index) 43.8 kg/m2 10/09/2014 9:46am Height 77 inches 6'5" Weight 354.00 lb Heart Rate 82 /min BP Systolic 175 mmHg BP Diastolic 94 mmHg BMI (Body Mass Index) 42.0 kg/m2 Results Test Date Facility Test Result H/L Range Note Wound 12/28/2017 [facility] Wound/Misc SEE RESULT 1 Culture/Sens[facility] [address] [place] [address] Stain [phone] CBC Auto Diff 02/13/2017 [facility] White Blood 5.8 10^3/uL N 3.5-10.[address] [place] [address] [phone] Red Blood Count 3.77 10^6/uL Low 4.0-5.4 Hemoglobin 10.1 g/dL Low 14.0-18.0 Hematocrit 32 % Low 42-52 Mean Corpuscular Volume 85 fL N 80-94 Mean Corpuscular Hemoglobin 27 pg N 27-31 Mean Corpuscular HGB Conc 32 g/dL N 31-36 Red Cell Distribution Width 16 % High 10.5-15 Platelet Count 161 10^3/uL N 150-450 Mean Platelet Volume 10 um3 N 7.4-10.4 Abs Neutrophils 3.8 10^3/uL N 1.5-7.7 Abs Lymphocytes 1.1 10^3/uL N 1.0-4.8 Abs Monocytes 0.6 10^3/uL N 0-0.8 Abs Eosinophils 0.3 10^3/uL N 0-0.6 Abs Basophils 0 10^3/uL N 0-0.2 Abs Nucleated RBC 0.01 10^3/uL N Granulocyte % 64.9 % N 38-83 Lymphocyte % 19.6 % Low 25-47 Monocyte % 9.6 % High 1-9 Eosinophil % 5.4 % N 0-6 Basophil % 0.5 % N 0-2 Nucleated Red Blood Cells % 0.1 N Comp Metabolic Panel 02/13/2017 [facility] Sodium 136 mmol/L N 133-[address] [place] [address] [phone] Potassium 4.7 mmol/L N 3.5-5.0 Chloride 105 mmol/L N 101-111 Co2 Carbon Dioxide 24 mmol/L N 22-32 Anion Gap 7 mmol/L N 2-11 Glucose 181 mg/dL High 70-100 Blood Urea Nitrogen 47 mg/dL High 6-24 Creatinine 2.44 mg/dL High 0.67-1.17 BUN/Creatinine Ratio 19.3 N 8-20 Calcium 8.5 mg/dL Low 8.6-10.3 Total Protein 5.7 g/dL Low 6.4-8.9 Albumin 3.1 g/dL Low 3.2-5.2 Globulin 2.6 g/dL N 2-4 Albumin/Globulin Ratio 1.2 N 1-3 Total Bilirubin 0.30 mg/dL N 0.2-1.0 Alkaline Phosphatase 67 U/L N 34-104 Alt 8 U/L N 7-52 Ast 14 U/L N 13-39 Egfr Non- 28.4 N >60 Egfr 36.5 N >60 3 Laboratory test 02/13/2017 [facility] C Reactive 15.84 mg/L High < 5.00 [address] [place] [address] [phone] CBC Auto Diff 02/06/2017 [facility] White Blood 5.9 N 3.5- 10.[address] Count 10^3/[place] [address] [phone] Red Blood Count 3.36 10^6/uL Low 4.0-5.4 Hemoglobin 8.9 g/dL Low 14.0-18.0 Hematocrit 28 % Low 42-52 Mean Corpuscular Volume 85 fL N 80-94 Mean Corpuscular Hemoglobin 27 pg N 27-31 Mean Corpuscular HGB Conc 31 g/dL N 31-36 Red Cell Distribution Width 16 % High 10.5-15 Platelet Count 184 10^3/uL N 150-450 Mean Platelet Volume 9 um3 N 7.4-10.4 Abs Neutrophils 4.0 10^3/uL N 1.5-7.7 Abs Lymphocytes 1.1 10^3/uL N 1.0-4.8 Abs Monocytes 0.4 10^3/uL N 0-0.8 Abs Eosinophils 0.3 10^3/uL N 0-0.6 Abs Basophils 0 10^3/uL N 0-0.2 Abs Nucleated RBC 0 10^3/uL N Granulocyte % 67.9 % N 38-83 Lymphocyte % 19.1 % Low 25-47 Monocyte % 7.1 % N 1-9 Eosinophil % 5.3 % N 0-6 Basophil % 0.6 % N 0-2 Nucleated Red Blood Cells % 0.1 N Comp Metabolic Panel 02/06/2017 [facility] Sodium 137 mmol/L N 133-[address] [place] [address] [phone] Potassium 4.7 mmol/L N 3.5-5.0 Chloride 105 mmol/L N 101-111 Co2 Carbon Dioxide 25 mmol/L N 22-32 Anion Gap 7 mmol/L N 2-11 Glucose 197 mg/dL High 70-100 Blood Urea Nitrogen 41 mg/dL High 6-24 Creatinine 2.61 mg/dL High 0.67-1.17 BUN/Creatinine Ratio 15.7 N 8-20 Calcium 9.1 mg/dL N 8.6-10.3 Total Protein 5.9 g/dL Low 6.4-8.9 Albumin 3.1 g/dL Low 3.2-5.2 Globulin 2.8 g/dL N 2-4 Albumin/Globulin Ratio 1.1 N 1-3 Total Bilirubin 0.30 mg/dL N 0.2-1.0 Alkaline Phosphatase 68 U/L N 34-104 Alt 8 U/L N 7-52 Ast 13 U/L N 13-39 Egfr Non- 26.2 N >60 Egfr 33.8 N >60 5 Laboratory test 02/06/2017 [facility] C Reactive 4.87 mg/L N < 5.00 [address] [place] [address] [phone] Laboratory test 01/23/2017 [facility] Point of Care 118 mg/dL High 74-106 [address] [place] [address] [phone] Electrolytes 01/23/2017 [facility] Sodium 131 Low 133-[address] mmol/[place] [address] [phone] Potassium 5.3 mmol/L High 3.5-5.0 Chloride 102 mmol/L N 101-111 Co2 Carbon Dioxide 23 mmol/L N 22-32 Anion Gap 6 mmol/L N 2-11 Laboratory test 01/23/2017 [facility] Blood Urea 43 mg/dL High 6-[address] [place] [address] [phone] Creatinine 01/23/2017 [facility] Creatinine 3.01 mg/dL High 0.67-1.[address] [place] [address] [phone] Egfr Non- 22.3 N >60 Egfr 28.6 N >60 8 Inr/Protime 01/23/2017 [facility] Inr 1.13 High 0.89-1.[address] [place] [address] [phone] Laboratory test 01/23/2017 [facility] Point of 203 mg/dL High 74-106 [address] [place] [address] [phone] CBC Auto Diff 01/09/2017 [facility] White Blood 6.9 N 3.5- 10.[address] Count 10^3/[place] [address] [phone] Red Blood Count 3.38 10^6/uL Low 4.0-5.4 Hemoglobin 9.3 g/dL Low 14.0-18.0 Hematocrit 29 % Low 42-52 Mean Corpuscular Volume 86 fL N 80-94 Mean Corpuscular Hemoglobin 28 pg N 27-31 Mean Corpuscular HGB Conc 32 g/dL N 31-36 Red Cell Distribution Width 15 % N 10.5-15 Platelet Count 200 10^3/uL N 150-450 Mean Platelet Volume 9 um3 N 7.4-10.4 Abs Neutrophils 5.1 10^3/uL N 1.5-7.7 Abs Lymphocytes 0.9 10^3/uL Low 1.0-4.8 Abs Monocytes 0.7 10^3/uL N 0-0.8 Abs Eosinophils 0.2 10^3/uL N 0-0.6 Abs Basophils 0 10^3/uL N 0-0.2 Abs Nucleated RBC 0.01 10^3/uL N Granulocyte % 73.7 % N 38-83 Lymphocyte % 12.9 % Low 25-47 Monocyte % 10.4 % High 1-9 Eosinophil % 2.4 % N 0-6 Basophil % 0.6 % N 0-2 Nucleated Red Blood Cells % 0.1 N Comp Metabolic Panel 01/09/2017 [facility] Sodium 135 mmol/L N 133-[address] [place] [address] [phone] Potassium 5.6 mmol/L High 3.5-5.0 Chloride 108 mmol/L N 101-111 Co2 Carbon Dioxide 21 mmol/L Low 22-32 Anion Gap 6 mmol/L N 2-11 Glucose 95 mg/dL N 70-100 Blood Urea Nitrogen 54 mg/dL High 6-24 Creatinine 2.29 mg/dL High 0.67-1.17 BUN/Creatinine Ratio 23.6 High 8-20 Calcium 8.4 mg/dL Low 8.6-10.3 Total Protein 6.1 g/dL Low 6.4-8.9 Albumin 2.9 g/dL Low 3.2-5.2 Globulin 3.2 g/dL N 2-4 Albumin/Globulin Ratio 0.9 Low 1-3 Total Bilirubin 0.20 mg/dL N 0.2-1.0 Alkaline Phosphatase 94 U/L N 34-104 Alt 11 U/L N 7-52 Ast 13 U/L N 13-39 Egfr Non- 30.5 N >60 Egfr 39.3 N >60 11 Laboratory test 01/09/2017 [facility] C Reactive 24.87 mg/L High < 5.00 [address] [place] [address] [phone] CBC Auto Diff 01/02/2017 [facility] White Blood 4.8 N 3.5- 10.[address] Count 10^3/[place] [address] [phone] Red Blood Count 3.28 10^6/uL Low 4.0-5.4 Hemoglobin 9.1 g/dL Low 14.0-18.0 Hematocrit 29 % Low 42-52 Mean Corpuscular Volume 87 fL N 80-94 Mean Corpuscular Hemoglobin 28 pg N 27-31 Mean Corpuscular HGB Conc 32 g/dL N 31-36 Red Cell Distribution Width 15 % N 10.5-15 Platelet Count 179 10^3/uL N 150-450 Mean Platelet Volume 9 um3 N 7.4-10.4 Abs Neutrophils 3.3 10^3/uL N 1.5-7.7 Abs Lymphocytes 0.8 10^3/uL Low 1.0-4.8 Abs Monocytes 0.5 10^3/uL N 0-0.8 Abs Eosinophils 0.2 10^3/uL N 0-0.6 Abs Basophils 0 10^3/uL N 0-0.2 Abs Nucleated RBC 0 10^3/uL N Granulocyte % 68.6 % N 38-83 Lymphocyte % 16.6 % Low 25-47 Monocyte % 11.1 % High 1-9 Eosinophil % 3.2 % N 0-6 Basophil % 0.5 % N 0-2 Nucleated Red Blood Cells % 0 N Laboratory test 01/02/2017 [facility] C Reactive 26.73 mg/L High < 5.00 [address] [place] [address] [phone] Comp Metabolic 01/02/2017 [facility] Sodium 134 mmol/L N 133- [address] [place] [address] [phone] Potassium 5.1 mmol/L High 3.5-5.0 Chloride 106 mmol/L N 101-111 Co2 Carbon Dioxide 22 mmol/L N 22-32 Anion Gap 6 mmol/L N 2-11 Glucose 171 mg/dL High 70-100 Blood Urea Nitrogen 50 mg/dL High 6-24 Creatinine 2.16 mg/dL High 0.67-1.17 BUN/Creatinine Ratio 23.1 High 8-20 Calcium 8.6 mg/dL N 8.6-10.3 Total Protein 6.0 g/dL Low 6.4-8.9 Albumin 2.9 g/dL Low 3.2-5.2 Globulin 3.1 g/dL N 2-4 Albumin/Globulin Ratio 0.9 Low 1-3 Total Bilirubin 0.20 mg/dL N 0.2-1.0 Alkaline Phosphatase 114 U/L High 34-104 Alt 24 U/L N 7-52 Ast 22 U/L N 13-39 Egfr Non- 32.7 N >60 Egfr 42.0 N >60 15 CBC Auto Diff 12/27/2016 [facility] White Blood 6.6 10^3/uL N 3.5-10.[address] [place] [address] [phone] Red Blood Count 3.29 10^6/uL Low 4.0-5.4 Hemoglobin 9.1 g/dL Low 14.0-18.0 Hematocrit 28 % Low 42-52 Mean Corpuscular Volume 87 fL N 80-94 Mean Corpuscular Hemoglobin 28 pg N 27-31 Mean Corpuscular HGB Conc 32 g/dL N 31-36 Red Cell Distribution Width 15 % N 10.5-15 Platelet Count 242 10^3/uL N 150-450 Mean Platelet Volume 8 um3 N 7.4-10.4 Abs Neutrophils 4.7 10^3/uL N 1.5-7.7 Abs Lymphocytes 1.2 10^3/uL N 1.0-4.8 Abs Monocytes 0.6 10^3/uL N 0-0.8 Abs Eosinophils 0.1 10^3/uL N 0-0.6 Abs Basophils 0 10^3/uL N 0-0.2 Abs Nucleated RBC 0 10^3/uL N Granulocyte % 70.7 % N 38-83 Lymphocyte % 18.1 % Low 25-47 Monocyte % 9.4 % High 1-9 Eosinophil % 1.1 % N 0-6 Basophil % 0.7 % N 0-2 Nucleated Red Blood Cells % 0 N Comp Metabolic Panel 12/27/2016 [facility] Sodium 134 mmol/L N 133-[address] [place] [address] [phone] Potassium 5.2 mmol/L High 3.5-5.0 Chloride 104 mmol/L N 101-111 Co2 Carbon Dioxide 23 mmol/L N 22-32 Anion Gap 7 mmol/L N 2-11 Glucose 52 mg/dL Low 70-100 Blood Urea Nitrogen 68 mg/dL High 6-24 Creatinine 2.48 mg/dL High 0.67-1.17 BUN/Creatinine Ratio 27.4 High 8-20 Calcium 9.0 mg/dL N 8.6-10.3 Total Protein 6.7 g/dL N 6.4-8.9 Albumin 3.3 g/dL N 3.2-5.2 Globulin 3.4 g/dL N 2-4 Albumin/Globulin Ratio 1.0 N 1-3 Total Bilirubin 0.20 mg/dL N 0.2-1.0 Alkaline Phosphatase 80 U/L N 34-104 Alt 14 U/L N 7-52 Ast 19 U/L N 13-39 Egfr Non- 27.8 N >60 Egfr 35.8 N >60 16 Laboratory test 12/27/2016 [facility] C Reactive 21.08 mg/L High < 5.00 [address] [place] [address] [phone] CBC Auto Diff 12/12/2016 [facility] White Blood 6.7 N 3.5- 10.[address] Count 10^3/[place] [address] [phone] Red Blood Count 3.25 10^6/uL Low 4.0-5.4 Hemoglobin 9.1 g/dL Low 14.0-18.0 Hematocrit 28 % Low 42-52 Mean Corpuscular Volume 86 fL N 80-94 Mean Corpuscular Hemoglobin 28 pg N 27-31 Mean Corpuscular HGB Conc 33 g/dL N 31-36 Red Cell Distribution Width 14 % N 10.5-15 Platelet Count 239 10^3/uL N 150-450 Mean Platelet Volume 8 um3 N 7.4-10.4 Abs Neutrophils 4.3 10^3/uL N 1.5-7.7 Abs Lymphocytes 1.2 10^3/uL N 1.0-4.8 Abs Monocytes 0.9 10^3/uL High 0-0.8 Abs Eosinophils 0.2 10^3/uL N 0-0.6 Abs Basophils 0 10^3/uL N 0-0.2 Abs Nucleated RBC 0.01 10^3/uL N Granulocyte % 64.9 % N 38-83 Lymphocyte % 18.3 % Low 25-47 Monocyte % 13.6 % High 1-9 Eosinophil % 2.5 % N 0-6 Basophil % 0.7 % N 0-2 Nucleated Red Blood Cells % 0.1 N Comp Metabolic Panel 12/12/2016 [facility] Sodium 136 mmol/L N 133-145 [address] [place] [address] [phone] Potassium 5.7 mmol/L High 3.5-5.0 Chloride 100 mmol/L Low 101-111 Co2 Carbon Dioxide 26 mmol/L N 22-32 Anion Gap 10 mmol/L N 2-11 Glucose 209 mg/dL High 70-100 Blood Urea Nitrogen 50 mg/dL High 6-24 Creatinine 2.90 mg/dL High 0.67-1.17 BUN/Creatinine Ratio 17.2 N 8-20 Calcium 8.9 mg/dL N 8.6-10.3 Total Protein 6.9 g/dL N 6.4-8.9 Albumin 3.1 g/dL Low 3.2-5.2 Globulin 3.8 g/dL N 2-4 Albumin/Globulin Ratio 0.8 Low 1-3 Total Bilirubin 0.30 mg/dL N 0.2-1.0 Alkaline Phosphatase 91 U/L N 34-104 Alt 13 U/L N 7-52 Ast 15 U/L N 13-39 Egfr Non- 23.2 N >60 Egfr 29.9 N >60 19 Laboratory test 12/12/2016 [facility] C Reactive 139.43 mg/L High < 5.00 20 finding [address] [facility] [place] [address] [phone] Basic Metabolic 12/09/2016 [facility] Sodium 133 mmol/L N 133- 145 Panel [address] [place] [address] [phone] Potassium 5.2 mmol/L High 3.5-5.0 Chloride 103 mmol/L N 101-111 Co2 Carbon Dioxide 22 mmol/L N 22-32 Anion Gap 8 mmol/L N 2-11 Glucose 155 mg/dL High 70-100 Blood Urea Nitrogen 56 mg/dL High 6-24 Creatinine 3.01 mg/dL High 0.67-1.17 BUN/Creatinine Ratio 18.6 N 8-20 Calcium 8.6 mg/dL N 8.6-10.3 Egfr Non- 22.3 N >60 Egfr 28.6 N >60 21 CBC Auto Diff 12/06/2016 [facility] White Blood 7.0 10^3/uL N 3.5-10.[address] [place] [address] [phone] Red Blood Count 3.03 10^6/uL Low 4.0-5.4 Hemoglobin 8.4 g/dL Low 14.0-18.0 Hematocrit 26 % Low 42-52 Mean Corpuscular Volume 87 fL N 80-94 Mean Corpuscular Hemoglobin 28 pg N 27-31 Mean Corpuscular HGB Conc 32 g/dL N 31-36 Red Cell Distribution Width 14 % N 10.5-15 Platelet Count 153 10^3/uL N 150-450 Mean Platelet Volume 9 um3 N 7.4-10.4 Abs Neutrophils 4.9 10^3/uL N 1.5-7.7 Abs Lymphocytes 1.0 10^3/uL N 1.0-4.8 Abs Monocytes 0.8 10^3/uL N 0-0.8 Abs Eosinophils 0.2 10^3/uL N 0-0.6 Abs Basophils 0.1 10^3/uL N 0-0.2 Abs Nucleated RBC 0 10^3/uL N Granulocyte % 70.0 % N 38-83 Lymphocyte % 14.6 % Low 25-47 Monocyte % 11.9 % High 1-9 Eosinophil % 2.8 % N 0-6 Basophil % 0.7 % N 0-2 Nucleated Red Blood Cells % 0 N Comp Metabolic Panel 12/06/2016 [facility] Sodium 131 mmol/L Low 133-[address] [place] [address] [phone] Potassium 5.3 mmol/L High 3.5-5.0 Chloride 103 mmol/L N 101-111 Co2 Carbon Dioxide 23 mmol/L N 22-32 Anion Gap 5 mmol/L N 2-11 Glucose 254 mg/dL High 70-100 Blood Urea Nitrogen 55 mg/dL High 6-24 Creatinine 3.08 mg/dL High 0.67-1.17 BUN/Creatinine Ratio 17.9 N 8-20 Calcium 8.2 mg/dL Low 8.6-10.3 Total Protein 5.6 g/dL Low 6.4-8.9 Albumin 2.7 g/dL Low 3.2-5.2 Globulin 2.9 g/dL N 2-4 Albumin/Globulin Ratio 0.9 Low 1-3 Total Bilirubin 0.20 mg/dL N 0.2-1.0 Alkaline Phosphatase 70 U/L N 34-104 Alt 9 U/L N 7-52 Ast 10 U/L Low 13-39 Egfr Non- 21.7 N >60 Egfr 27.9 N >60 23 Laboratory test 12/06/2016 [facility] C Reactive 147.38 mg/L High < 5.00 [address] [place] [address] [phone] Vancomycin Trough 15.5 g/mL N 25 Comp Metabolic Panel 11/29/2016 [facility] Sodium 134 mmol/L N 133-[address] [place] [address] [phone] Chloride 106 mmol/L N 101-111 Co2 Carbon Dioxide 24 mmol/L N 22-32 Glucose 264 mg/dL High 70-100 Blood Urea Nitrogen 53 mg/dL High 6-24 Creatinine 2.56 mg/dL High 0.67-1.17 BUN/Creatinine Ratio 20.7 High 8-20 Calcium 9.0 mg/dL N 8.6-10.3 Total Protein 6.4 g/dL N 6.4-8.9 Albumin 3.2 g/dL N 3.2-5.2 Globulin 3.2 g/dL N 2-4 Albumin/Globulin Ratio 1.0 N 1-3 Total Bilirubin 0.30 mg/dL N 0.2-1.0 Alkaline Phosphatase 86 U/L N 34-104 Alt 13 U/L N 7-52 Ast 15 U/L N 13-39 Egfr Non- 26.8 N >60 Egfr 34.5 N >60 26 Potassium 6.1 mmol/L High 3.5-5.0 27 Anion Gap 4 mmol/L N 2-11 Laboratory test 11/29/2016 [facility] C Reactive 12.87 mg/L High < 5.[address] [place] [address] [phone] Hemoglobin A1c (Glyco HGB) 11.2 % High Less than 6.0 29 CBC Auto Diff 11/29/2016 [facility] White Blood 6.6 10^3/uL N 3.5-10.[address] [place] [address] [phone] Red Blood Count 3.79 10^6/uL Low 4.0-5.4 Hemoglobin 10.6 g/dL Low 14.0-18.0 Hematocrit 33 % Low 42-52 Mean Corpuscular Volume 87 fL N 80-94 Mean Corpuscular Hemoglobin 28 pg N 27-31 Mean Corpuscular HGB Conc 32 g/dL N 31-36 Red Cell Distribution Width 14 % N 10.5-15 Platelet Count 215 10^3/uL N 150-450 Mean Platelet Volume 9 um3 N 7.4-10.4 Abs Neutrophils 4.6 10^3/uL N 1.5-7.7 Abs Lymphocytes 1.2 10^3/uL N 1.0-4.8 Abs Monocytes 0.6 10^3/uL N 0-0.8 Abs Eosinophils 0.1 10^3/uL N 0-0.6 Abs Basophils 0 10^3/uL N 0-0.2 Abs Nucleated RBC 0.01 10^3/uL N Granulocyte % 69.5 % N 38-83 Lymphocyte % 18.5 % Low 25-47 Monocyte % 9.1 % High 1-9 Eosinophil % 2.2 % N 0-6 Basophil % 0.7 % N 0-2 Nucleated Red Blood Cells % 0.2 N Laboratory test 11/29/2016 [facility] Erythrocyte Sed 118 mm/Hr High 0-[address] [place] [address] [phone] CBC Auto Diff 12/21/2015 [facility] White Blood 5.2 N 3.5- 10.[address] Count 10^3/[place] [address] [phone] Red Blood Count 4.11 10^6/uL N 4.0-5.4 Hemoglobin 11.5 g/dL Low 14.0-18.0 Hematocrit 36 % Low 42-52 Mean Corpuscular Volume 87 fL N 80-94 Mean Corpuscular Hemoglobin 28 pg N 27-31 Mean Corpuscular HGB Conc 32 g/dL N 31-36 Red Cell Distribution Width 15 % N 10.5-15 Platelet Count 162 10^3/uL N 150-450 Mean Platelet Volume 9 um3 N 7.4-10.4 Abs Neutrophils 3.3 10^3/uL N 1.5-7.7 Abs Lymphocytes 1.0 10^3/uL N 1.0-4.8 Abs Monocytes 0.7 10^3/uL N 0-0.8 Abs Eosinophils 0.2 10^3/uL N 0-0.6 Abs Basophils 0 10^3/uL N 0-0.2 Abs Nucleated RBC 0 10^3/uL N Granulocyte % 63.2 % N 38-83 Lymphocyte % 18.9 % Low 25-47 Monocyte % 12.6 % High 1-9 Eosinophil % 4.5 % N 0-6 Basophil % 0.8 % N 0-2 Nucleated Red Blood Cells % 0 N Comp Metabolic Panel 12/21/2015 [facility] Sodium 136 mmol/L N 133-[address] [place] [address] [phone] Potassium 4.8 mmol/L N 3.5-5.0 Chloride 103 mmol/L N 101-111 Co2 Carbon Dioxide 26 mmol/L N 22-32 Anion Gap 7 mmol/L N 2-11 Glucose 151 mg/dL High 70-100 Blood Urea Nitrogen 38 mg/dL High 6-24 Creatinine 2.64 mg/dL High 0.67-1.17 BUN/Creatinine Ratio 14.4 N 8-20 Calcium 8.6 mg/dL N 8.6-10.3 Total Protein 5.7 g/dL Low 6.4-8.9 Albumin 3.2 g/dL N 3.2-5.2 Globulin 2.5 g/dL N 2-4 Albumin/Globulin Ratio 1.3 N 1-3 Total Bilirubin 0.40 mg/dL N 0.2-1.0 Alkaline Phosphatase 78 U/L N 34-104 Alt 15 U/L N 7-52 Ast 16 U/L N 13-39 Egfr Non- 26.0 N >60 Egfr 33.5 N >60 30 Laboratory test 12/21/2015 [facility] Vancomycin Trough 15.8 g /mL N finding [address] [place] [address] [phone] C Reactive Protein 4.19 mg/L N < 5.00 31 CBC Auto Diff 12/15/2015 [facility] White Blood 4.8 10^3/uL N 3.5-10.[address] [place] [address] [phone] Red Blood Count 3.98 10^6/uL Low 4.0-5.4 Hemoglobin 11.3 g/dL Low 14.0-18.0 Hematocrit 35 % Low 42-52 Mean Corpuscular Volume 87 fL N 80-94 Mean Corpuscular Hemoglobin 28 pg N 27-31 Mean Corpuscular HGB Conc 32 g/dL N 31-36 Red Cell Distribution Width 15 % N 10.5-15 Platelet Count 161 10^3/uL N 150-450 Mean Platelet Volume 9 um3 N 7.4-10.4 Abs Neutrophils 3.0 10^3/uL N 1.5-7.7 Abs Lymphocytes 0.9 10^3/uL Low 1.0-4.8 Abs Monocytes 0.6 10^3/uL N 0-0.8 Abs Eosinophils 0.2 10^3/uL N 0-0.6 Abs Basophils 0.1 10^3/uL N 0-0.2 Abs Nucleated RBC 0 10^3/uL N Granulocyte % 63.4 % N 38-83 Lymphocyte % 17.9 % Low 25-47 Monocyte % 12.9 % High 1-9 Eosinophil % 4.5 % N 0-6 Basophil % 1.3 % N 0-2 Nucleated Red Blood Cells % 0 N Comp Metabolic Panel 12/15/2015 [facility] Sodium 138 mmol/L N 133-[address] [place] [address] [phone] Potassium 4.6 mmol/L N 3.5-5.0 Chloride 104 mmol/L N 101-111 Co2 Carbon Dioxide 27 mmol/L N 22-32 Anion Gap 7 mmol/L N 2-11 Glucose 123 mg/dL High 70-100 Blood Urea Nitrogen 37 mg/dL High 6-24 Creatinine 2.50 mg/dL High 0.67-1.17 BUN/Creatinine Ratio 14.8 N 8-20 Calcium 8.7 mg/dL N 8.6-10.3 Total Protein 5.8 g/dL Low 6.4-8.9 Albumin 3.4 g/dL N 3.2-5.2 Globulin 2.4 g/dL N 2-4 Albumin/Globulin Ratio 1.4 N 1-3 Total Bilirubin 0.40 mg/dL N 0.2-1.0 Alkaline Phosphatase 72 U/L N 34-104 Alt 13 U/L N 7-52 Ast 14 U/L N 13-39 Egfr Non- 27.7 N >60 Egfr 35.6 N >60 32 Laboratory test 12/15/2015 [facility] Vancomycin Trough 21.9 g /mL N finding [address] [place] [address] [phone] C Reactive Protein 7.69 mg/L High < 5.00 33 CBC Auto Diff 12/07/2015 [facility] White Blood 4.2 10^3/uL N 3.5-10.[address] [place] [address] [phone] Red Blood Count 3.62 10^6/uL Low 4.0-5.4 Hemoglobin 10.3 g/dL Low 14.0-18.0 Hematocrit 32 % Low 42-52 Mean Corpuscular Volume 87 fL N 80-94 Mean Corpuscular Hemoglobin 28 pg N 27-31 Mean Corpuscular HGB Conc 33 g/dL N 31-36 Red Cell Distribution Width 16 % High 10.5-15 Platelet Count 150 10^3/uL N 150-450 Mean Platelet Volume 10 um3 N 7.4-10.4 Abs Neutrophils 2.5 10^3/uL N 1.5-7.7 Abs Lymphocytes 0.9 10^3/uL Low 1.0-4.8 Abs Monocytes 0.6 10^3/uL N 0-0.8 Abs Eosinophils 0.2 10^3/uL N 0-0.6 Abs Basophils 0 10^3/uL N 0-0.2 Abs Nucleated RBC 0 10^3/uL N Granulocyte % 61.0 % N 38-83 Lymphocyte % 20.6 % Low 25-47 Monocyte % 13.3 % High 1-9 Eosinophil % 4.5 % N 0-6 Basophil % 0.6 % N 0-2 Nucleated Red Blood Cells % 0.1 N Comp Metabolic Panel 12/07/2015 [facility] Sodium 137 mmol/L N 133-[address] [place] [address] [phone] Potassium 4.7 mmol/L N 3.5-5.0 Chloride 106 mmol/L N 101-111 Co2 Carbon Dioxide 25 mmol/L N 22-32 Anion Gap 6 mmol/L N 2-11 Glucose 192 mg/dL High 70-100 Blood Urea Nitrogen 29 mg/dL High 6-24 Creatinine 2.27 mg/dL High 0.67-1.17 BUN/Creatinine Ratio 12.8 N 8-20 Calcium 8.7 mg/dL N 8.6-10.3 Total Protein 5.7 g/dL Low 6.4-8.9 Albumin 3.2 g/dL N 3.2-5.2 Globulin 2.5 g/dL N 2-4 Albumin/Globulin Ratio 1.3 N 1-3 Total Bilirubin 0.30 mg/dL N 0.2-1.0 Alkaline Phosphatase 76 U/L N 34-104 Alt 13 U/L N 7-52 Ast 16 U/L N 13-39 Egfr Non- 31.0 N >60 Egfr 39.8 N >60 34 Laboratory test 12/07/2015 [facility] Vancomycin Trough 18.2 g /mL N finding [address] [place] [address] [phone] C Reactive Protein 8.83 mg/L High < 5.00 35 CBC Auto Diff 11/30/2015 [facility] White Blood 4.1 10^3/uL N 3.5-10.[address] [place] [address] [phone] Red Blood Count 3.59 10^6/uL Low 4.0-5.4 Hemoglobin 10.1 g/dL Low 14.0-18.0 Hematocrit 31 % Low 42-52 Mean Corpuscular Volume 87 fL N 80-94 Mean Corpuscular Hemoglobin 28 pg N 27-31 Mean Corpuscular HGB Conc 32 g/dL N 31-36 Red Cell Distribution Width 16 % High 10.5-15 Platelet Count 141 10^3/uL Low 150-450 Mean Platelet Volume 9 um3 N 7.4-10.4 Abs Neutrophils 2.6 10^3/uL N 1.5-7.7 Abs Lymphocytes 0.8 10^3/uL Low 1.0-4.8 Abs Monocytes 0.5 10^3/uL N 0-0.8 Abs Eosinophils 0.3 10^3/uL N 0-0.6 Abs Basophils 0 10^3/uL N 0-0.2 Abs Nucleated RBC 0 10^3/uL N Granulocyte % 61.8 % N 38-83 Lymphocyte % 19.7 % Low 25-47 Monocyte % 11.5 % High 1-9 Eosinophil % 6.1 % High 0-6 Basophil % 0.9 % N 0-2 Nucleated Red Blood Cells % 0 N Comp Metabolic Panel 11/30/2015 [facility] Sodium 136 mmol/L N 133-[address] [place] [address] [phone] Potassium 4.8 mmol/L N 3.5-5.0 Chloride 103 mmol/L N 101-111 Co2 Carbon Dioxide 26 mmol/L N 22-32 Anion Gap 7 mmol/L N 2-11 Glucose 318 mg/dL High 70-100 Blood Urea Nitrogen 33 mg/dL High 6-24 Creatinine 2.36 mg/dL High 0.67-1.17 BUN/Creatinine Ratio 14.0 N 8-20 Calcium 8.5 mg/dL Low 8.6-10.3 Total Protein 5.6 g/dL Low 6.4-8.9 Albumin 3.1 g/dL Low 3.2-5.2 Globulin 2.5 g/dL N 2-4 Albumin/Globulin Ratio 1.2 N 1-3 Total Bilirubin 0.30 mg/dL N 0.2-1.0 Alkaline Phosphatase 74 U/L N 34-104 Alt 11 U/L N 7-52 Ast 12 U/L Low 13-39 Egfr Non- 29.6 N >60 Egfr 38.1 N >60 36 Laboratory test 11/30/2015 [facility] Vancomycin Trough 16.7 g /mL N finding [address] [place] [address] [phone] C Reactive Protein 4.80 mg/L N < 5.00 37 TSH (Thyroid Stim Horm) 1.35 ?IU/mL N 0.34-5.60 T3 Total 0.80 ng/mL Low 0.87-1.78 CBC Auto Diff 11/23/2015 [facility] White Blood 4.4 10^3/uL N 3.5-10.[address] [place] [address] [phone] Red Blood Count 3.48 10^6/uL Low 4.0-5.4 Hemoglobin 10.0 g/dL Low 14.0-18.0 Hematocrit 30 % Low 42-52 Mean Corpuscular Volume 87 fL N 80-94 Mean Corpuscular Hemoglobin 29 pg N 27-31 Mean Corpuscular HGB Conc 33 g/dL N 31-36 Red Cell Distribution Width 17 % High 10.5-15 Platelet Count 161 10^3/uL N 150-450 Mean Platelet Volume 9 um3 N 7.4-10.4 Abs Neutrophils 2.7 10^3/uL N 1.5-7.7 Abs Lymphocytes 0.8 10^3/uL Low 1.0-4.8 Abs Monocytes 0.6 10^3/uL N 0-0.8 Abs Eosinophils 0.3 10^3/uL N 0-0.6 Abs Basophils 0 10^3/uL N 0-0.2 Abs Nucleated RBC 0 10^3/uL N Granulocyte % 61.6 % N 38-83 Lymphocyte % 18.4 % Low 25-47 Monocyte % 12.7 % High 1-9 Eosinophil % 6.7 % High 0-6 Basophil % 0.6 % N 0-2 Nucleated Red Blood Cells % 0.1 N Basic Metabolic 11/23/2015 [facility] Sodium 132 mmol/L Low 133-145 Panel [address] [place] [address] [phone] Potassium 4.8 mmol/L N 3.5-5.0 Chloride 103 mmol/L N 101-111 Co2 Carbon Dioxide 23 mmol/L N 22-32 Anion Gap 6 mmol/L N 2-11 Glucose 369 mg/dL High 70-100 Blood Urea Nitrogen 36 mg/dL High 6-24 Creatinine 2.61 mg/dL High 0.67-1.17 BUN/Creatinine Ratio 13.8 N 8-20 Calcium 8.1 mg/dL Low 8.6-10.3 Egfr Non- 26.4 N >60 Egfr 33.9 N >60 38 Laboratory test 11/23/2015 [facility] Vancomycin Trough 14.7 g /mL N finding [address] [place] [address] [phone] C Reactive Protein 7.00 mg/L High < 5.00 39 Laboratory test 11/16/2015 [facility] Vancomycin 17.2 g/mL N finding [address] [place] [address] [phone] Basic Metabolic 11/16/2015 [facility] Sodium 138 mmol/L N 133- [address] [place] [address] [phone] Potassium 4.5 mmol/L N 3.5-5.0 Chloride 107 mmol/L N 101-111 Co2 Carbon Dioxide 24 mmol/L N 22-32 Anion Gap 7 mmol/L N 2-11 Glucose 136 mg/dL High 70-100 Blood Urea Nitrogen 35 mg/dL High 6-24 Creatinine 1.79 mg/dL High 0.67-1.17 BUN/Creatinine Ratio 19.6 N 8-20 Egfr Non- 40.7 N >60 Egfr 52.4 N >60 40 Calcium 8.4 mg/dL Low 8.6-10.3 CBC Auto Diff 11/13/2015 [facility] White Blood 4.8 10^3/uL N 3.5-10.[address] [place] [address] [phone] Red Blood Count 3.49 10^6/uL Low 4.0-5.4 Hemoglobin 9.9 g/dL Low 14.0-18.0 Hematocrit 30 % Low 42-52 Mean Corpuscular Volume 86 fL N 80-94 Mean Corpuscular Hemoglobin 28 pg N 27-31 Mean Corpuscular HGB Conc 33 g/dL N 31-36 Red Cell Distribution Width 17 % High 10.5-15 Platelet Count 142 10^3/uL Low 150-450 Mean Platelet Volume 9 um3 N 7.4-10.4 Abs Neutrophils 3.1 10^3/uL N 1.5-7.7 Abs Lymphocytes 0.9 10^3/uL Low 1.0-4.8 Abs Monocytes 0.5 10^3/uL N 0-0.8 Abs Eosinophils 0.3 10^3/uL N 0-0.6 Abs Basophils 0 10^3/uL N 0-0.2 Abs Nucleated RBC 0.01 10^3/uL N Granulocyte % 64.7 % N 38-83 Lymphocyte % 19.0 % Low 25-47 Monocyte % 9.7 % High 1-9 Eosinophil % 5.6 % N 0-6 Basophil % 1.0 % N 0-2 Nucleated Red Blood Cells % 0.2 N Laboratory test 11/13/2015 [facility] Vancomycin Trough 26.2 g /mL N [address] [place] [address] [phone] C Reactive Protein 7.37 mg/L High < 5.00 42 Comp Metabolic Panel 11/13/2015 [facility] Sodium 137 mmol/L N 133-[address] [place] [address] [phone] Potassium 4.8 mmol/L N 3.5-5.0 Chloride 107 mmol/L N 101-111 Co2 Carbon Dioxide 23 mmol/L N 22-32 Anion Gap 7 mmol/L N 2-11 Glucose 133 mg/dL High 70-100 Blood Urea Nitrogen 39 mg/dL High 6-24 Creatinine 1.75 mg/dL High 0.67-1.17 BUN/Creatinine Ratio 22.3 High 8-20 Calcium 8.4 mg/dL Low 8.6-10.3 Total Protein 5.5 g/dL Low 6.4-8.9 Albumin 3.0 g/dL Low 3.2-5.2 Globulin 2.5 g/dL N 2-4 Albumin/Globulin Ratio 1.2 N 1-3 Total Bilirubin 0.30 mg/dL N 0.2-1.0 Alkaline Phosphatase 81 U/L N 34-104 Alt 17 U/L N 7-52 Ast 18 U/L N 13-39 Egfr Non- 41.8 N >60 Egfr 53.8 N >60 43 Laboratory test 10/29/2015 [facility] Wound SEE RESULT [address] Culture/[place] [address] [phone] Comp Metabolic 10/29/2015 [facility] Sodium 133 mmol/L N 133- [address] [place] [address] [phone] Potassium 5.2 mmol/L High 3.5-5.0 Chloride 103 mmol/L N 101-111 Co2 Carbon Dioxide 24 mmol/L N 22-32 Anion Gap 6 mmol/L N 2-11 Glucose 126 mg/dL High 70-100 Blood Urea Nitrogen 29 mg/dL High 6-24 Creatinine 1.42 mg/dL High 0.67-1.17 BUN/Creatinine Ratio 20.4 High 8-20 Calcium 8.9 mg/dL N 8.6-10.3 Total Protein 6.1 g/dL Low 6.4-8.9 Albumin 3.2 g/dL N 3.2-5.2 Globulin 2.9 g/dL N 2-4 Albumin/Globulin Ratio 1.1 N 1-3 Total Bilirubin 0.40 mg/dL N 0.2-1.0 Alkaline Phosphatase 108 U/L High 34-104 Alt 29 U/L N 7-52 Ast 23 U/L N 13-39 Egfr Non- 53.2 N >60 Egfr 68.4 N >60 45 CBC Auto Diff 10/29/2015 [facility] White Blood 4.9 10^3/uL N 3.5-10.[address] [place] [address] [phone] Red Blood Count 3.91 10^6/uL Low 4.0-5.4 Hemoglobin 10.9 g/dL Low 14.0-18.0 Hematocrit 34 % Low 42-52 Mean Corpuscular Volume 86 fL N 80-94 Mean Corpuscular Hemoglobin 28 pg N 27-31 Mean Corpuscular HGB Conc 32 g/dL N 31-36 Red Cell Distribution Width 17 % High 10.5-15 Platelet Count 159 10^3/uL N 150-450 Mean Platelet Volume 9 um3 N 7.4-10.4 Abs Neutrophils 3.0 10^3/uL N 1.5-7.7 Abs Lymphocytes 1.2 10^3/uL N 1.0-4.8 Abs Monocytes 0.5 10^3/uL N 0-0.8 Abs Eosinophils 0.2 10^3/uL N 0-0.6 Abs Basophils 0 10^3/uL N 0-0.2 Abs Nucleated RBC 0 10^3/uL N Granulocyte % 61.8 % N 38-83 Lymphocyte % 23.7 % Low 25-47 Monocyte % 10.2 % High 1-9 Eosinophil % 3.5 % N 0-6 Basophil % 0.8 % N 0-2 Nucleated Red Blood Cells % 0.1 N Laboratory test 10/29/2015 [facility] C Reactive 6.00 mg/L High < 5.00 [address] [place] [address] [phone] 1 SEE RESULT BELOW Name: AMMON GALO : [address]: Ashley GEORGE Acct: [id number] Unit: [id number] AGE: 52 Location: [facility] Re12/28/17 SEX: M Status: REG REF SPEC: [id number] MARY: 12/28/17-[address]: Ashley GEORGE REQ: [id number] RECD: 12/28/17 STATUS: COMP _ SOURCE: MISC SOURC SPDESC:OTHER ORDERED: Culture Stain COMMENTS: Source: Right Foot per Praveena Mota RN.; [id number] Procedure Result Reported Site Wound/Misc Gram Stain [...] CONTINUED ON NEXT PAGE DEPARTMENT OF PATHOLOGY, [address] [place] [address] Dayne Pires M.D. Director [facility] # [id number] Patient: AMMON GALO [id number] (Continued) Specimen: [id number] Collected: 12/28/17-1155 Received: 12/28/17 (Continued) Procedure Result Reported Site Wound/Misc Culture Final (continued) 12/30/17- 1020 1. STAPHYLOCOCCUS AUREUS (continued) M.I.C. RX --------- ------ Vancomycin <=0.5 S Imipenem-Deduced S * Ampicillin/Sulbactam-Deduced S Cefazolin-Deduced S * These antibiotics are not available in the [facility] Formulary Contact the Microbiology Department for any additional antibiotic reporting. * ML - Main Lab . END OF REPORT DEPARTMENT OF PATHOLOGY, [address] [place] [address] Dayne Pires M.D. Director [facility] # [id number] Because ethnic data is not always [...] (or dialysis) 6 Acute inflammation: >10.00 7 Cooky Packer: [id number] 8 Because ethnic data is not always [...] 5 Kidney failure <15 (or dialysis) 9 Cooky Packer: [id number] 11 Because ethnic data is not always [...] (or dialysis) 12 Acute inflammation: >10.00 13 [id number] Acute inflammation: >10.00 15 Because ethnic [...] inflammation: >10.00 18 FAX RESULTS TO AT [phone] [id number] 19 Because ethnic data is not always [...] 5 Kidney failure <15 (or dialysis) 22 [id number] 23 Because ethnic data is not always [...] (or dialysis) 24 Acute inflammation: >10.00 25 [id number] 26 Because ethnic data is not always [...] K:6.[address] BAER at: 19:10:52 by:[id number] Read back by:DR BAER 28 Acute inflammation: >10.00 29 Therapeutic target for the treatment of diabetes Mellitus patients is <7% HBA1C, and in selective patients <6.0%.Please refer to [place] [employer] Diabetic care guidelines for further [...] (or dialysis) 41 ATN: DELMI URIAS FAX# [phone] 42 Acute inflammation: >10.00 43 Because ethnic [...] [address]: Doug Martinez MD Acct: [id number] Unit: [id number] AGE: 50 Location: [facility] Re10/29/15 SEX: M Status: REG REF SPEC: [id number] MARY: 10/29/[address] [facility] [address]: Doug Martinez MD REQ: [id number] RECD: 10/29/15 STATUS: COMP _ SOURCE: FOOT,LEFT SPDESC: ORDERED: Culture Stain Procedure Result Reported Site Wound/Misc Gram Stain Final 10/30/15- 0830 ML 1+ Neutrophils 3+ Gram Positive Bacilli Wound/Misc Culture Final 10/30/15- 1238 ML Organism 1 CORYNEBACTERIUM STRIATUM Quantity 2+ * ML - MAIN LAB ([facility]) . END OF REPORT * ML=Testing performed at Main Lab DEPARTMENT OF PATHOLOGY, [address] [place] [address] Dayne Pires M.D. Director [facility] # [id number] 45 Because ethnic data is not always [...] dialysis) 46 Acute inflammation: >10.00 Procedures Date Code Description Status 09/05/2018 06718 Walking Cast Completed 08/29/2018 83735 Walking Cast Completed 08/13/2018 42594 Apply Total Contact Leg Cast Completed 08/08/2018 02311 Walking Cast Completed 07/27/2018 19954 Apply Total Contact Leg Cast Completed 07/18/2018 64820 Walking Cast Completed 07/11/2018 14307 Apply Total Contact Leg Cast Completed 06/20/2018 31083 ECHO Transthorasic Realtime 2D W Doppler & Color Flow Hosp Completed 06/19/2018 99018 Apply Total Contact Leg Cast Completed 02/14/2018 45129 Apply Total Contact Leg Cast Completed 01/16/2018 89534 Amputation Foot Midtarsal Completed 01/16/2018 24338 Amputation Foot Midtarsal Completed 01/16/2018 72331 Stress Test Supervsn W/Out I/R Completed 01/16/2018 71189 Treadmill Interp/Report Only Completed 01/15/2018 98708 EKG, Interpretation Only Completed 01/15/2018 13012 Amputation Foot Midtarsal Completed 01/14/2018 79644 EKG, Interpretation Only Completed 10/26/2017 26395 Short Leg Cast Completed 10/16/2017 69240 Amputation Toe MP JT Completed 10/16/2017 09293 Amputation Toe MP JT Completed 10/16/2017 39799 Amputation Toe MP JT Completed 10/16/2017 25360 Amputation Toe MP JT Completed 10/16/2017 82566 Amputation Toe MP JT Completed 02/07/2017 29169 Short Leg Cast Completed 02/03/2017 79375 EKG, Interpretation Only Completed 01/23/2017 49490 Amputation Foot Midtarsal Completed 01/23/2017 65894 Amputation Foot Midtarsal Completed 01/17/2017 69478 ECHO Transthorasic Realtime 2D W Doppler & Color Flow Hosp Completed 01/17/2017 98821 Treadmill Interp/Report Only Completed 01/17/2017 47202 Stress Test Supervsn W/Out I/R Completed 01/16/2017 52225 EKG, Interpretation Only Completed 01/11/2017 46461 Rad Exam; Foot Comp Completed 02/01/2011 38916 EKG, Interpretation Only Completed 07/04/2006 81028 Treadmill Interp/Report Only Completed 07/04/2006 29392 Stress Test Supervsn W/Out I/R Completed 07/04/2006 60476 Stress Test Supervsn W/Out I/R Completed Encounters Type Date Location Provider Dx Diagnosis Office Visit 08/22/2018 [facility] Robert Galarza, L97.419 Non- prs chr 2:45p Of Татьяна [place] Tia ulcer of right heel and midfoot w [facility] Office Visit 08/12/2018 [facility] Jayson Alba L97.419 Non- prs chr 1:06p Of Darshana YEUNG ulcer of right heel and midfoot w [facility] Office Visit 08/11/2018 [facility] Lisa Antonio MD R06.02 Shortness of 9:38a Assoc,pc breath 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 R10.32 Left lower quadrant pain R79.89 Other specified abnormal findings of blood chemistry E11.9 Type 2 diabetes mellitus without complications Office Visit 08/10/2018 9:38a [facility] Yue Mccall R07.9 Chest pain , Assoc,pc N.P. unspecified 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 R06.02 Shortness of breath E11.22 Type 2 diabetes mellitus w diabetic chronic kidney disease N18.5 Chronic kidney disease, stage 5 Z79.4 jail (current) use of insulin Z89.421 Acquired absence of other right toe(s) Z89.422 Acquired absence of other left toe(s) Office Visit 08/08/2018 [facility] Robert M86.671 Other chronic 11:00a Services Of Татьяна Galarza M.D. osteomyelitis, [facility] right ankle and foot Office Visit 07/11/2018 [facility] Robert M86.671 Other chronic 10:45a Services Of Татьяна Galarza M.D. osteomyelitis, AT [facility] right ankle and foot Office Visit 07/03/2018 [facility] Beth I16.0 Hypertensive 10:20a Assoc,jazmin Tobias M.D. urgency 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 R11.2 Nausea with vomiting, unspecified L97.419 Non-prs chr ulcer of right heel and midfoot w unsp severt E11.621 Type 2 diabetes mellitus with foot ulcer B95.4 Oth streptococcus as the cause of diseases classd elswhr Office Visit 07/02/2018 [facility] Francisco J Marks I16.0 Hypertensive 10:20a Assocjazmin II, M.D. urgency 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 I50.32 Chronic diastolic (congestive) heart failure K92.0 Hematemesis E87.2 Acidosis E11.22 Type 2 diabetes mellitus w diabetic chronic kidney disease N18.5 Chronic kidney disease, stage 5 L97.419 Non-prs chr ulcer of right heel and midfoot w unsp severt E11.621 Type 2 diabetes mellitus with foot ulcer Office Visit 06/23/2018 11:59a [facility] Yue Mccall, E87.70 Fluid overload, Assoc,pc N.P. unspecified 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 I50.32 Chronic diastolic (congestive) heart failure Z79.4 jail (current) use of insulin N18.5 Chronic kidney disease, stage 5 E11.22 Type 2 diabetes mellitus w diabetic chronic kidney disease Office Visit 06/22/2018 11:59a [facility] Yue Mccall, N18.9 Chronic kidney Assoc,pc N.P. 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 chronic kidney disease w stg 1-4/unsp chr kdny Office Visit 06/21/2018 11:58a [facility] Bárbaracarlyle Mas E87.2 Acidosis Assoc,pc 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 SONYA Solo N18.9 Chronic kidney disease, unspecified S91.301A Unspecified open wound, right foot, initial encounter I50.32 Chronic diastolic (congestive) heart failure J44.9 Chronic obstructive pulmonary disease, unspecified 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) L97.419 Non-prs chr ulcer of right heel and midfoot w unsp severt Office Visit 06/20/2018 11:57a [facility] E87.2 Acidosis Assoc, 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 SONYA Solo N18.9 Chronic kidney disease, unspecified S91.301A Unspecified open wound, right foot, initial encounter I50.32 Chronic diastolic (congestive) heart failure J44.9 Chronic obstructive pulmonary disease, unspecified E11.22 Type 2 diabetes mellitus w diabetic chronic kidney disease E87.5 Hyperkalemia I12.9 Hypertensive chronic kidney disease w stg 1-4/unsp chr kdny E66.01 Morbid (severe) obesity due to excess calories Office Visit 06/19/2018 11:57a [facility] E87.2 Acidosis Assoc, 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 SONYA Solo E11.22 Type 2 diabetes mellitus w diabetic chronic kidney disease I10 Essential (primary) hypertension N18.9 Chronic kidney disease, unspecified Office Visit 06/19/2018 10:15a Orthopedic Jayson Alba L97.419 Non-prs chr Services Of ulcer of right C.M.A. 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 N18.4 Chronic kidney disease, stage 4 (severe) Office Visit 05/28/2018 1:12p [facility] Bairon Whitmore E11.621 Type 2 Assocjazmin MD diabetes 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 mellitus with foot ulcer L97.418 Non-prs chronic ulcer of right heel/midft with oth severity B95.61 Methicillin suscep staph infct causing dis classd elswhr L03.115 Cellulitis of right lower limb E87.8 Oth disorders of electrolyte and fluid balance, [facility] E11.22 Type 2 diabetes mellitus w diabetic chronic kidney disease N18.4 Chronic kidney disease, stage 4 (severe) Office Visit 05/27/2018 1:12p [facility] Bairon Whitmore E11.621 Type 2 Assoc,jazmin Mixon MD diabetes 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 mellitus with foot ulcer L97.418 Non-prs chronic ulcer of right heel/midft with oth severity M86.9 Osteomyelitis, unspecified N18.4 Chronic kidney disease, stage 4 (severe) E11.22 Type 2 diabetes mellitus w diabetic chronic kidney disease Office Visit 05/26/2018 11:48a Orthopedic Robert L97.519 Non-prs chronic Services Of Tia Galarza ulcer oth prt C.M.A. right foot w unsp severity L03.115 Cellulitis of right lower limb Office Visit 05/26/2018 1:11p [facility] Beth Tobias, E11.621 Type 2 jazmin Anna M.D. diabetes 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 mellitus with foot ulcer L97.418 Non-prs chronic ulcer of right heel/midft with oth severity M86.271 Subacute osteomyelitis, right ankle and foot D63.8 Anemia in other chronic diseases classified elsewhere I10 Essential (primary) hypertension E11.22 Type 2 diabetes mellitus w diabetic chronic kidney disease N18.4 Chronic kidney disease, stage 4 (severe) Office Visit 05/25/2018 [facility] Beth Tobias, L97.418 Non-prs chronic 1:10p Assjazmin multani M.D. ulcer of right 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 heel/midft with oth severity E11.621 Type 2 diabetes mellitus with foot ulcer N18.4 Chronic kidney disease, stage 4 (severe) E11.22 Type 2 diabetes mellitus w diabetic chronic kidney disease I10 Essential (primary) hypertension E11.65 Type 2 diabetes mellitus with hyperglycemia Office Visit 04/17/2018 9:45a Orthopedic Robert L97.518 Non-prs chronic Services Of Tia Galarza ulcer oth prt C.M.A. right foot with oth severity Office Visit 03/20/2018 9:30a Orthopedic Robert M17.12 Unilateral Services Of Tia Galarza primary C.M.A. osteoarthritis, left knee M86.271 Subacute osteomyelitis, right ankle and foot Office Visit 02/27/2018 11:10a [facility] Doug Olvera Z86.19 Personal history Infectious Tia Martinez of other Diseases infectious and parasitic diseases E11.40 Type 2 diabetes mellitus with diabetic neuropathy, unsp Z89.421 Acquired absence of other right toe(s) Office Visit 01/17/2018 [facility] Doug Olvera E11.69 Type 2 diabetes 1:16p For Infectious Tia Martinez mellitus with Diseases other specified complication M86.171 Other acute osteomyelitis, right ankle and foot Z89.421 Acquired absence of other right toe(s) Office Visit 01/17/2018 [facility] Bárbara M86.271 Subacute 11:02a Assjazmin multani [facility] osteomyelitis, 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 Dianeo, SHELTER CASE MANAGER right ankle and foot E11.51 Type 2 diabetes w diabetic peripheral angiopath w/o gangrene N18.3 Chronic kidney disease, stage 3 (moderate) Z79.4 jail (current) use of insulin Office Visit 01/16/2018 [facility] M86.271 Subacute 11:02a jazmin Anna osteomyelitis, 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 SONYA Solo right ankle and foot E11.51 Type 2 diabetes w diabetic peripheral angiopath w/o gangrene N18.3 Chronic kidney disease, stage 3 (moderate) Z79.4 jail (current) use of insulin Office Visit 01/15/2018 [facility] Doug Olvera E11.69 Type 2 diabetes 12:39p For Infectious Tia Martinez mellitus with Diseases other specified complication M86.171 Other acute osteomyelitis, right ankle and foot E11.22 Type 2 diabetes mellitus w diabetic chronic kidney disease N18.4 Chronic kidney disease, stage 4 (severe) E11.40 Type 2 diabetes mellitus with diabetic neuropathy, unsp Z89.421 Acquired absence of other right toe(s) Office Visit 01/15/2018 [facility] M86.271 Subacute 11:01a jazmin Anna osteomyelitis, Hospitalalex Solo NP right ankle and foot E11.51 Type 2 diabetes w diabetic peripheral angiopath w/o gangrene N18.3 Chronic kidney disease, stage 3 (moderate) 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 failure, 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 unspecified N18.3 Chronic kidney disease, stage 3 (moderate) E11.42 Type 2 diabetes mellitus with diabetic polyneuropathy Office Visit 10/17/2017 [facility] Doug Olvera E11.69 Type 2 diabetes 1:15p For Infectious Tia Martinez mellitus with Diseases other specified complication M86.671 Other chronic osteomyelitis, right ankle and foot E11.40 Type 2 diabetes mellitus with diabetic neuropathy, unsp E11.22 Type 2 diabetes mellitus w diabetic chronic kidney disease N18.3 Chronic kidney disease, stage 3 (moderate) B95.61 Methicillin suscep staph infct causing dis classd elswhr Office Visit 10/17/2017 [facility] Beth Tobias, N17.9 Acute kidney 3:01p jazmin Anna M.D. failure, 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 unspecified N18.3 Chronic kidney disease, stage 3 (moderate) E11.42 Type 2 diabetes mellitus with diabetic polyneuropathy Office Visit 10/16/2017 [facility] Doug Olvera E11.69 Type 2 diabetes 1:07p For Infectious Tia Martinez mellitus with Diseases other specified complication M86.671 Other chronic osteomyelitis, right ankle and foot E11.40 Type 2 diabetes mellitus with diabetic neuropathy, unsp L03.031 Cellulitis of right toe E11.22 Type 2 diabetes mellitus w diabetic chronic kidney disease N18.9 Chronic kidney disease, unspecified Office Visit 10/16/2017 [facility] S90.851A Superficial 3:01p Assjazmin multani M.D. foreign body, 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 right foot, initial encounter N17.9 Acute kidney failure, unspecified E11.42 Type 2 diabetes mellitus with diabetic polyneuropathy Office Visit 10/15/2017 [facility] S90.851A Superficial 3:00p Assocjazmin M.D. foreign body, 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 right foot, initial encounter N17.9 Acute kidney failure, unspecified N18.3 Chronic kidney disease, stage 3 (moderate) E11.42 Type 2 diabetes mellitus with diabetic polyneuropathy Office Visit 10/15/2017 Orthopedic Lee Vazquez M86.271 Subacute 9:39a Services Of MD Kenji osteomyelitis, C.M.A. right ankle and foot Office Visit 10/14/2017 [facility] S90.851A Superficial foreign 2:59p Assoc,jazmin Gonzalez D.O. body, right foot, 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 initial encounter N17.9 Acute kidney failure, unspecified N18.3 Chronic kidney disease, stage 3 (moderate) E11.42 Type 2 diabetes mellitus with diabetic polyneuropathy Office Visit 05/23/2017 [facility] Doug Olvera L97.321 Non-prs chronic 10:30a For Infectious Tia Martinez ulcer of left Diseases ankle limited to brkdwn skin Office Visit 03/27/2017 [facility] Doug Olvera M86.60 Other chronic 2:20p For Infectious Tia Martinez osteomyelitis, Diseases unspecified site L97.321 Non-prs chronic ulcer of left ankle limited to brkdwn skin Office Visit 02/04/2017 3:47p [facility] Juni Manning, E87.5 Hyperkalemia Assjazmin multani M.D. 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 E11.8 Type 2 diabetes mellitus with unspecified complications G62.9 Polyneuropathy, unspecified N18.3 Chronic kidney disease, stage 3 (moderate) Office Visit 02/03/2017 3:46p [facility] Scot Sutton, E87.5 Hyperkalemia Assocjazmin N.PRafael 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 E11.8 Type 2 diabetes mellitus with unspecified complications G62.9 Polyneuropathy, unspecified N18.3 Chronic kidney disease, stage 3 (moderate) Office Visit 01/25/2017 [facility] Doug Olvera E10.69 Type 1 diabetes 8:22a For Infectious Alondra Martinez. 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 disease, stage 3 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 (moderate) M86.60 Other chronic osteomyelitis, unspecified site E11.22 Type 2 diabetes mellitus w diabetic chronic kidney disease Z89.432 Acquired absence of left foot Office Visit 01/24/2017 4:15p [facility], N18.3 Chronic kidney Assoc,pc M.D. disease, stage 3 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 (moderate) Z89.432 Acquired absence of left foot E11.22 Type 2 diabetes mellitus w diabetic chronic kidney disease M86.60 Other chronic osteomyelitis, unspecified site Office Visit 01/24/2017 [facility] Doug Olvera E10.69 Type 1 diabetes 8:18a For Infectious Alondra Martinez. 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 Office Visit 01/23/2017 4:13p [facility] Vinicio Z89.432 Acquired Assoc,pc MD Jose De Jesus absence of 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 left foot M86.60 Other chronic osteomyelitis, unspecified site E11.22 Type 2 diabetes mellitus w diabetic chronic kidney disease Office Visit 01/18/2017 11:19a [facility] Amanda Lynne, 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,pc SHELTER CASE MANAGER collapse 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 N17.9 Acute kidney failure, unspecified N18.4 Chronic kidney disease, stage 4 (severe) M86.9 Osteomyelitis, unspecified Office Visit 01/17/2017 [facility] Thiago Pitts, R55 Syncope and 11:18a Assoc,pc [place] collapse 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 N17.9 Acute kidney failure, unspecified E11.22 Type 2 diabetes mellitus w diabetic chronic kidney disease N18.4 Chronic kidney disease, stage 4 (severe) Office Visit 01/16/2017 11:18a [facility] Juni Manning, R55 Syncope and jazmin Anna M.D. collapse 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 N17.9 Acute kidney failure, unspecified E11.22 Type 2 diabetes mellitus w diabetic chronic kidney disease N18.4 Chronic kidney disease, stage 4 (severe) Office Visit 01/11/2017 Orthopedic Robert M86.672 Other chronic 9:30a Services Of Татьяна Galarza M.D. 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 M86.672 Other chronic osteomyelitis, left ankle and foot D64.9 Anemia, unspecified Office Visit 11/29/2016 8:50a [facility] Doug Olvera L97.524 Non- prs Infectious Tia Martinez chronic ulcer Diseases oth prt left foot w necrosis of bone E11.40 Type 2 diabetes mellitus with diabetic neuropathy, unsp M86.672 Other chronic osteomyelitis, left ankle and foot E11.621 Type 2 diabetes mellitus with foot ulcer E11.69 Type 2 diabetes mellitus with other specified complication Office Visit 01/12/2016 [facility] Doug Olvera M86.672 Other chronic 11:30a For Martina Martinez M.D. osteomyelitis, left Diseases ankle and foot Office Visit 12/01/2015 [facility] Doug Olvera M86.672 Other chronic 10:10a For Martina Martinez M.D. osteomyelitis, left Diseases ankle and foot Office Visit 12/01/2015 Pulmonology And Gayatri G47.9 Sleep disorder, 11:00a Sleep Services MD Mitchel unspecified Of Татьяна E66.01 Morbid (severe) obesity due to excess calories Office Visit 10/29/2015 [facility] Michael Olvera M86.672 Other chronic 4:20p Martina Martinez M.D. osteomyelitis, left Diseases ankle and foot Office Visit 10/09/2014 Orthopedic Tootie 354.2 Lesion Ulnar Nerve 9:30a Services Of Tia Eli C.M.A. Office Visit 01/09/2013 [facility] Scot 790.6 Abnormal Blood 2:37p Assoc,jazmin Sutton N.PRafael Chemistry Other 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 250.02 Diabetes Mellitus W/O Compl Type II Or Unspec Type Uncontrol 250.20 Diabetes W/ Hyperosmolarity Type II Or Unspec Controlled 357.2 Polyneuropathy In Diabetes Office Visit 09/17/2009 [facility] Beth Tobias, 251.2 Hypoglycemia Other 12:15a Assjazmin multani M.D. Unspec 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 Plan of Treatment Future Appointment(s):09/19/2018 11:00 am - Robert Galarza M.D. at [facility] AT Bhxbtint04/05/2018 - Robert Galarza M.D.L97.419 Non- pressure chronic ulcer of right heel and midfoot with unFollow up:1-2 weeks
--- OUTSIDE RECORDS SUMMARY | 2018-09-05 16:45 | XMS REPORT | Continuity of Care Document ---
:1965 External Reference #:[id number] Author Name Zoraida Galo Care Team Providers Name Role Phone Siddhartha Morrison D.O. Primary Care Physician Unavailable Payers Type Date Identification Numbers Payment Provider Subscriber Effective: Policy Number: [id number] Medicare Ammon Galo 2011 PayID: [id number] [address] [place] [address] Policy Number: [id number] Medicaid Ammon Galo PayID: [id number] [address] [place] [address] Advance Directives Description No Information Available Problems [...] Unknown smoker now occassionally Smoking Status Reviewed: 08/29/18 Patient is a former quit smoking and chews smoker now occassionally Exercise Does not exercise Type/Frequency Allergies, Adverse Reactions, Alerts Date Description Reaction Status Severity Comments 05/02/2013 Codeine Active 10/29/2015 Peanut Oil Active 12/01/2015 Strawberries Active Swelling tongue 12/01/2015 Chocolate Active Lips swelling 01/12/2016 Sulfamethoxazole/Trimethoprim Active rash Medications Medication Date Status Form Strength Qnty SIG Indications Ordering Provider Procardia XL Active Tablets ER 30mg 90tab [...] 1 by mouth Z86.19 s every day DRafael - Donnie 04/16 M.D. Keflex 01/04 Hx Capsules 500mg 40cap Take one s tablet by Geovanni, - mouth every 6 M.D. 02/26 hours for 2017. Take with food. Levofloxacin 12/28 Hx Tablets 750mg 14tab one per day M86.671 s Geovanni, - M.D. 02/26 Oxycodone HCL 10/26 Hx Capsules 5mg 30cap Take 1 to 2 s tablets by Geovanni, - mouth every M.D. 10/26 4-6 hours as needed for pain. Oxycodone HCL 10/26 Hx Tablets 5mg 30tab 1 tab by s mouth every Geovanni, - 4-6 hours for M.D. 02/05 pain. Oxycodone HCL 01/26 Hx Tablets 10mg 40tab 1 tab by s mouth q4 h as Geovanni, - needed pain M.D. 04/01 Levofloxacin 01/12 Hx Tablets 500mg 14tab 1 by mouth s every day DRafael - Donnie 01/26 M.D. Vancomycin HCL 12/02 Hx Solution 1500mg QS iv every 24 Rec hours through D. - advanced care [facility], 12/19 home infusion M.D. Ceftriaxone 12/02 Hx Solution 2gm iv every 24 Rec hours through D. - [facility], 01/26 Home Infusion M.D. Bactrim DS 12/21 [...] hours x 42 D. - days through [facility], 12/14 Aci . Ciprofloxacin 11/03 Hx Tablets 750mg 84tab 1 by mouth s twice a day x D. - 42 days [facility], 12/21 (start this .D. when you start IV antibiotic infusions) Lisinopril Hx Tablets 10mg 30tab 1 po qd Unknown /0000 s - 04/23 Amlodipine Hx Tablets 5mg 90tab 1 po qd Unknown Besylate /0000 s - 04/23 Lantus 00 Hx Solution 100Unit/M 6Vial sliding scale Unknown [...] directed Unknown /0000 L s - Benadryl 00 Hx Tablets 25mg as needed Unknown Allergy /0000 - 01/10 Vancomycin HCL 00 Hx Solution 1000mg iv every 24 Unknown /0000 Rec hours - 12/21 Truejayo 00 Hx SQ once daily SQ Unknown /0000 - 02/05 Zosyn 00 Hx Solution 10.125gm continuous Unknown /0000 Rec infusion x 14 - days through 03/26 Ac Tums Hx Chewtabs 500mg 2 chewtabs by Unknown /0000 mouth as - needed 04/16 Gabapentin Hx Capsules 300mg take 1 Unknown /0000 capsule by - mouth three 06/18 times a day /2018 Immunizations CPT Code Status Date Vaccine Lot # [id number] Given 12/01/2015 Fluvirin Im 3Yrs And Older Vital Signs Date Vital Result Comment 08/29/2018 2:51pm Height 75.75 inches 6'3.75" Weight [...] Test Result H/L Range Note Wound 12/28/2017 [facility] Wound/Misc SEE RESULT 1 Culture/Sensi [address] [place] [address] Stain [phone] CBC Auto Diff 02/13/2017 [facility] White Blood 5.8 10^3/uL N 3.5-10.[address] [place] [address] [phone] Red Blood Count 3.77 10^6/uL Low 4.0-5.4 [...] % 0.1 N Comp Metabolic Panel 02/13/2017 [facility] Sodium 136 mmol/L N 133-[address] [place] [address] [phone] Potassium 4.7 mmol/L N 3.5-5.0 Chloride 105 [...] 36.5 N >60 3 Laboratory test 02/13/2017 [facility] C Reactive 15.84 mg/L High < 5.00 [address] [place] [address] [phone] CBC Auto Diff 02/06/2017 [facility] White Blood 5.9 N 3.5- 10.[address] Count 10^3/[place] [address] [phone] Red Blood Count 3.36 10^6/uL Low 4.0-5.4 [...] % 0.1 N Comp Metabolic Panel 02/06/2017 [facility] Sodium 137 mmol/L N 133-[address] [place] [address] [phone] Potassium 4.7 mmol/L N 3.5-5.0 Chloride 105 [...] 33.8 N >60 5 Laboratory test 02/06/2017 [facility] C Reactive 4.87 mg/L N < 5.00 [address] [place] [address] [phone] Laboratory test 01/23/2017 [facility] Point of Care 118 mg/dL High 74-106 [address] [place] [address] [phone] Electrolytes 01/23/2017 [facility] Sodium 131 Low 133-[address] mmol/[place] [address] [phone] Potassium 5.3 mmol/L High 3.5-5.0 Chloride 102 mmol/L N 101-111 Co2 Carbon Dioxide 23 mmol/L N 22-32 Anion Gap 6 mmol/L N 2-11 Laboratory test 01/23/2017 [facility] Blood Urea 43 mg/dL High 6-[address] [place] [address] [phone] Creatinine 01/23/2017 [facility] Creatinine 3.01 mg/dL High 0.67-1.[address] [place] [address] [phone] Egfr Non- 22.3 N >60 Egfr 28.6 N >60 8 Inr/Protime 01/23/2017 [facility] Inr 1.13 High 0.89-1.[address] [place] [address] [phone] Laboratory test 01/23/2017 [facility] Point of 203 mg/dL High 74-106 [address] [place] [address] [phone] CBC Auto Diff 01/09/2017 [facility] White Blood 6.9 N 3.5- 10.[address] Count 10^3/[place] [address] [phone] Red Blood Count 3.38 10^6/uL Low 4.0-5.4 [...] % 0.1 N Comp Metabolic Panel 01/09/2017 [facility] Sodium 135 mmol/L N 133-[address] [place] [address] [phone] Potassium 5.6 mmol/L High 3.5-5.0 Chloride 108 [...] 39.3 N >60 11 Laboratory test 01/09/2017 [facility] C Reactive 24.87 mg/L High < 5.00 [address] [place] [address] [phone] CBC Auto Diff 01/02/2017 [facility] White Blood 4.8 N 3.5- 10.[address] Count 10^3/[place] [address] [phone] Red Blood Count 3.28 10^6/uL Low 4.0-5.4 [...] Cells % 0 N Laboratory test 01/02/2017 [facility] C Reactive 26.73 mg/L High < 5.00 [address] [place] [address] [phone] Comp Metabolic 01/02/2017 [facility] Sodium 134 mmol/L N 133- [address] [place] [address] [phone] Potassium 5.1 mmol/L High 3.5-5.0 Chloride 106 [...] N >60 15 CBC Auto Diff 12/27/2016 [facility] White Blood 6.6 10^3/uL N 3.5-10.[address] [place] [address] [phone] Red Blood Count 3.29 10^6/uL Low 4.0-5.4 [...] % 0 N Comp Metabolic Panel 12/27/2016 [facility] Sodium 134 mmol/L N 133-[address] [place] [address] [phone] Potassium 5.2 mmol/L High 3.5-5.0 Chloride 104 [...] 35.8 N >60 16 Laboratory test 12/27/2016 [facility] C Reactive 21.08 mg/L High < 5.00 [address] [place] [address] [phone] CBC Auto Diff 12/12/2016 [facility] White Blood 6.7 N 3.5- 10.[address] Count 10^3/[place] [address] [phone] Red Blood Count 3.25 10^6/uL Low 4.0-5.4 [...] % 0.1 N Comp Metabolic Panel 12/12/2016 [facility] Sodium 136 mmol/L N 133-[address] [place] [address] [phone] Potassium 5.7 mmol/L High 3.5-5.0 Chloride 100 [...] 29.9 N >60 19 Laboratory test 12/12/2016 [facility] C Reactive 139.43 mg/L High < 5.00 [address] [place] [address] [phone] Basic Metabolic 12/09/2016 [facility] Sodium 133 mmol/L N 133- [address] [place] [address] [phone] Potassium 5.2 mmol/L High 3.5-5.0 Chloride 103 [...] N >60 21 CBC Auto Diff 12/06/2016 [facility] White Blood 7.0 10^3/uL N 3.5-10.[address] [place] [address] [phone] Red Blood Count 3.03 10^6/uL Low 4.0-5.4 [...] % 0 N Comp Metabolic Panel 12/06/2016 [facility] Sodium 131 mmol/L Low 133-[address] [place] [address] [phone] Potassium 5.3 mmol/L High 3.5-5.0 Chloride 103 [...] 27.9 N >60 23 Laboratory test 12/06/2016 [facility] C Reactive 147.38 mg/L High < 5.00 [address] [place] [address] [phone] Vancomycin Trough 15.5 g/mL N 25 Comp Metabolic Panel 11/29/2016 [facility] Sodium 134 mmol/L N 133-[address] [place] [address] [phone] Chloride 106 mmol/L N 101-111 Co2 Carbon [...] 4 mmol/L N 2-11 Laboratory test 11/29/2016 [facility] C Reactive 12.87 mg/L High < 5.[address] [place] [address] [phone] Hemoglobin A1c (Glyco HGB) 11.2 % High Less than 6.0 29 CBC Auto Diff 11/29/2016 [facility] White Blood 6.6 10^3/uL N 3.5-10.[address] [place] [address] [phone] Red Blood Count 3.79 10^6/uL Low 4.0-5.4 [...] Cells % 0.2 N Laboratory test 11/29/2016 [facility] Erythrocyte Sed 118 mm/Hr High 0-[address] [place] [address] [phone] CBC Auto Diff 12/21/2015 [facility] White Blood 5.2 N 3.5- 10.[address] Count 10^3/uL [place], [place] [address] [phone] Red Blood Count 4.11 10^6/uL N 4.0-5.4 [...] % 0 N Comp Metabolic Panel 12/21/2015 [facility] Sodium 136 mmol/L N 133-[address] [place] [address] [phone] Potassium 4.8 mmol/L N 3.5-5.0 Chloride 103 [...] 33.5 N >60 30 Laboratory test 12/21/2015 [facility] Vancomycin Trough 15.8 g /mL N finding [address] [place] [address] [phone] C Reactive Protein 4.19 mg/L N < 5.00 31 CBC Auto Diff 12/15/2015 [facility] White Blood 4.8 10^3/uL N 3.5-10.[address] [place] [address] [phone] Red Blood Count 3.98 10^6/uL Low 4.0-5.4 [...] % 0 N Comp Metabolic Panel 12/15/2015 [facility] Sodium 138 mmol/L N 133-[address] [place] [address] [phone] Potassium 4.6 mmol/L N 3.5-5.0 Chloride 104 [...] 35.6 N >60 32 Laboratory test 12/15/2015 [facility] Vancomycin Trough 21.9 g /mL N finding [address] [place] [address] [phone] C Reactive Protein 7.69 mg/L High < 5.00 33 CBC Auto Diff 12/07/2015 [facility] White Blood 4.2 10^3/uL N 3.5-10.[address] [place] [address] [phone] Red Blood Count 3.62 10^6/uL Low 4.0-5.4 [...] % 0.1 N Comp Metabolic Panel 12/07/2015 [facility] Sodium 137 mmol/L N 133-[address] [place] [address] [phone] Potassium 4.7 mmol/L N 3.5-5.0 Chloride 106 [...] 39.8 N >60 34 Laboratory test 12/07/2015 [facility] Vancomycin Trough 18.2 g /mL N finding [address] [place] [address] [phone] C Reactive Protein 8.83 mg/L High < 5.00 35 CBC Auto Diff 11/30/2015 [facility] White Blood 4.1 10^3/uL N 3.5-10.[address] [place] [address] [phone] Red Blood Count 3.59 10^6/uL Low 4.0-5.4 [...] % 0 N Comp Metabolic Panel 11/30/2015 [facility] Sodium 136 mmol/L N 133-[address] [place] [address] [phone] Potassium 4.8 mmol/L N 3.5-5.0 Chloride 103 [...] 38.1 N >60 36 Laboratory test 11/30/2015 [facility] Vancomycin Trough 16.7 g /mL N finding [address] [place] [address] [phone] C Reactive Protein 4.80 mg/L N < 5.00 37 TSH (Thyroid Stim Horm) 1.35 ?IU/mL N 0.34-5.60 T3 Total 0.80 ng/mL Low 0.87-1.78 CBC Auto Diff 11/23/2015 [facility] White Blood 4.4 10^3/uL N 3.5-10.[address] [place] [address] [phone] Red Blood Count 3.48 10^6/uL Low 4.0-5.4 [...] Cells % 0.1 N Basic Metabolic 11/23/2015 [facility] Sodium 132 mmol/L Low 133-145 Panel [address] [place] [address] [phone] Potassium 4.8 mmol/L N 3.5-5.0 Chloride 103 mmol/L N 101-111 Co2 Carbon Dioxide 23 mmol/L N 22-32 Anion Gap 6 mmol/L N 2-11 Glucose 369 mg/dL High 70-100 Blood Urea Nitrogen 36 mg/dL High 6-24 Creatinine 2.61 mg/dL High 0.67-1.17 BUN/Creatinine Ratio 13.8 N 8-20 Calcium 8.1 mg/dL Low 8.6-10.3 Egfr Non- 26.4 N >60 Egfr 33.9 N >60 38 Laboratory test 11/23/2015 [facility] Vancomycin Trough 14.7 g /mL N finding [address] [place] [address] [phone] C Reactive Protein 7.00 mg/L High < 5.00 39 Laboratory test 11/16/2015 [facility] Vancomycin 17.2 g/mL N finding [address] [place] [address] [phone] Basic Metabolic 11/16/2015 [facility] Sodium 138 mmol/L N 133- [address] [place] [address] [phone] Potassium 4.5 mmol/L N 3.5-5.0 Chloride 107 [...] mg/dL Low 8.6-10.3 CBC Auto Diff 11/13/2015 [facility] White Blood 4.8 10^3/uL N 3.5-10.[address] [place] [address] [phone] Red Blood Count 3.49 10^6/uL Low 4.0-5.4 [...] Cells % 0.2 N Laboratory test 11/13/2015 [facility] Vancomycin Trough 26.2 g /mL N [address] [place] [address] [phone] C Reactive Protein 7.37 mg/L High < 5.00 42 Comp Metabolic Panel 11/13/2015 [facility] Sodium 137 mmol/L N 133-145 [address] [place] [address] [phone] Potassium 4.8 mmol/L N 3.5-5.0 Chloride 107 [...] 53.8 N >60 43 Laboratory test 10/29/2015 [facility] Wound SEE RESULT [address] Culture/[place] [address] [phone] Comp Metabolic 10/29/2015 [facility] Sodium 133 mmol/L N 133- [address] [place] [address] [phone] Potassium 5.2 mmol/L High 3.5-5.0 Chloride 103 [...] N >60 45 CBC Auto Diff 10/29/2015 [facility] White Blood 4.9 10^3/uL N 3.5-10.[address] [place] [address] [phone] Red Blood Count 3.91 10^6/uL Low 4.0-5.4 [...] Cells % 0.1 N Laboratory test 10/29/2015 [facility] C Reactive 6.00 mg/L High < 5.00 [address] [place] [address] [phone] 1 SEE RESULT BELOW Name: AMMON GALO : [address]: Ashley GEORGE Acct: [id number] Unit: [id number] AGE: 52 Location: [facility] Re12/28/17 SEX: M Status: REG REF SPEC: [id number] MARY: 12/28/17-[address] [facility] [address]: Ashley GEORGE REQ: [id number] RECD: 12/28/17 STATUS: COMP _ SOURCE: MISC SOURC SPDESC:OTHER ORDERED: Culture Stain COMMENTS: Source: Right Foot per Praveena Mota RN.; [id number] Procedure Result Reported Site Wound/Misc Gram Stain [...] CONTINUED ON NEXT PAGE DEPARTMENT OF PATHOLOGY, [address] [place] [address] Dayne Pires M.D. Director [facility] # [id number] Patient: AMMON GALO [id number] (Continued) Specimen: [id number] Collected: 12/28/17 Received: 12/28/17 (Continued) Procedure Result Reported Site Wound/Misc Culture Final (continued) 12/30/17- 1021 1. STAPHYLOCOCCUS AUREUS (continued) M.I.C. RX --------- ------ Vancomycin <=0.5 S Imipenem-Deduced S * Ampicillin/Sulbactam-Deduced S Cefazolin-Deduced S * These antibiotics are not available in the [facility] Formulary Contact the Microbiology Department for any additional antibiotic reporting. * ML - Main Lab . END OF REPORT DEPARTMENT OF PATHOLOGY, [address] [place] [address] Dayne Pires M.D. Director [facility] # [id number] 2 [id number] 3 Because ethnic data is not always [...] (or dialysis) 6 Acute inflammation: >10.00 7 Continuous Miner: [id number] 8 Because ethnic data is not always [...] 5 Kidney failure <15 (or dialysis) 9 Continuous Miner: [id number] 11 Because ethnic data is not always [...] (or dialysis) 12 Acute inflammation: >10.00 13 [id number] 14 Acute inflammation: >10.00 15 Because ethnic [...] inflammation: >10.00 18 FAX RESULTS TO AT [phone] [id number] 19 Because ethnic data is not always [...] 5 Kidney failure <15 (or dialysis) 22 [id number] 23 Because ethnic data is not always [...] (or dialysis) 24 Acute inflammation: >10.00 25 [id number] 26 Because ethnic data is not always [...] K:6.[address] BAER at: 19:10:52 by:[id number] Read back by:DR BAER 28 Acute inflammation: >10.00 29 Therapeutic target for the treatment of diabetes Mellitus patients is <7% HBA1C, and in selective patients <6.0%.Please refer to [place] [employer] Diabetic care guidelines for further [...] (or dialysis) 41 ATN: DELMI URIAS FAX# [phone] 42 Acute inflammation: >10.00 43 Because ethnic [...] [address]: Doug Martinez MD Acct: [id number] Unit: [id number] AGE: 50 Location: [facility] Re10/29/15 SEX: M Status: REG REF SPEC: [id number] MARY: 10/29/15-[address]: Doug Martinez MD REQ: [id number] RECD: 10/29/15960 STATUS: COMP _ SOURCE: FOOT,LEFT SPDESC: ORDERED: Culture Stain Procedure Result Reported Site Wound/Misc Gram Stain Final 10/30/15- 0830 ML 1+ Neutrophils 3+ Gram Positive Bacilli Wound/Misc Culture Final 10/30/15- 1238 ML Organism 1 CORYNEBACTERIUM STRIATUM Quantity 2+ * [facility] - [facility] ([facility]) . END OF REPORT * ML=Testing performed at Main Lab DEPARTMENT OF PATHOLOGY, [address] [place] [address] Dayne Pires M.D. Director [facility] # [id number] 45 Because ethnic data is not always [...] inflammation: >10.00 Procedures Date Code Description Status 08/29/2018 22486 Walking Cast Completed 08/13/2018 98940 Apply Total Contact Leg Cast Completed 08/08/2018 33228 Walking Cast Completed 07/27/2018 56343 Apply Total Contact Leg Cast Completed 07/18/2018 79189 Walking Cast Completed 07/11/2018 20938 Apply Total Contact Leg Cast Completed 06/20/2018 13430 ECHO Transthorasic Realtime 2D W Doppler & Color Flow Hosp Completed 06/19/2018 47882 Apply Total Contact Leg Cast Completed 02/14/2018 09651 Apply Total Contact Leg Cast Completed 01/16/2018 93872 Amputation Foot Midtarsal Completed 01/16/2018 18103 Amputation Foot Midtarsal Completed 01/16/2018 50783 Stress Test Supervsn W/Out I/R Completed 01/16/2018 54219 Treadmill Interp/Report Only Completed 01/15/2018 94027 EKG, Interpretation Only Completed 01/15/2018 44840 Amputation Foot Midtarsal Completed 01/14/2018 64831 EKG, Interpretation Only Completed 10/26/2017 20749 Short Leg Cast Completed 10/16/2017 13251 Amputation Toe MP JT Completed 10/16/2017 93722 Amputation Toe MP JT Completed 10/16/2017 77144 Amputation Toe MP JT Completed 10/16/2017 11900 Amputation Toe MP JT Completed 10/16/2017 20567 Amputation Toe MP JT Completed 02/07/2017 44282 Short Leg Cast Completed 02/03/2017 82731 EKG, Interpretation Only Completed 01/23/2017 19832 Amputation Foot Midtarsal Completed 01/23/2017 75590 Amputation Foot Midtarsal Completed 01/17/2017 78323 ECHO Transthorasic Realtime 2D W Doppler & Color Flow Hosp Completed 01/17/2017 44119 Treadmill Interp/Report Only Completed 01/17/2017 03644 Stress Test Supervsn W/Out I/R Completed 01/16/2017 76963 EKG, Interpretation Only Completed 01/11/2017 77294 Rad Exam; Foot Comp Completed 02/01/2011 99397 EKG, Interpretation Only Completed 07/04/2006 36788 Treadmill Interp/Report Only Completed 07/04/2006 57758 Stress Test Supervsn W/Out I/R Completed 07/04/2006 54251 Stress Test Supervsn W/Out I/R Completed Encounters Type Date Location Provider Dx Diagnosis Office Visit 08/11/2018 [facility] Lisa Antonio MD R06.02 Shortness of 9:38a Assoc,pc breath 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 R10.32 Left lower quadrant pain R79.89 Other specified abnormal findings of blood chemistry E11.9 Type 2 diabetes mellitus without complications Office Visit 08/10/2018 9:38a [facility] Yue Mccall, R07.9 Chest pain , Assoc,pc N.P. unspecified 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 R06.02 Shortness of breath E11.22 Type 2 diabetes mellitus w diabetic chronic kidney disease N18.5 Chronic kidney disease, stage 5 Z79.4 custodial (current) use of insulin Z89.421 Acquired absence of other right toe(s) Z89.422 Acquired absence of other left toe(s) Office Visit 08/08/2018 [facility] Robert Carmona86.Sathish Other chronic 11:00a Services Of Татьяна Galarza M.D. osteomyelitis, [facility] right ankle and foot Office Visit 07/11/2018 [facility] Robert Carmona86.671 Other chronic 10:45a Services Of Татьяна Galarza M.D. osteomyelitis, AT [facility] right ankle and foot Office Visit 07/03/2018 [facility] Beth I16.0 Hypertensive 10:20a Assocjazmin M.D. urgency 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 R11.2 Nausea with vomiting, unspecified L97.419 Non-prs chr ulcer of right heel and midfoot w unsp severt E11.621 Type 2 diabetes mellitus with foot ulcer B95.4 Oth streptococcus as the cause of diseases classd elswhr Office Visit 07/02/2018 [facility] Francisco J Marks I16.0 Hypertensive 10:20a Assocjazmin II, M.D. urgency 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 I50.32 Chronic diastolic (congestive) heart failure K92.0 Hematemesis E87.2 Acidosis E11.22 Type 2 diabetes mellitus w diabetic chronic kidney disease N18.5 Chronic kidney disease, stage 5 L97.419 Non-prs chr ulcer of right heel and midfoot w [facility] E11.621 Type 2 diabetes mellitus with foot ulcer Office Visit 06/23/2018 11:59a [facility] Yue Mccall, E87.70 Fluid overload, Assoc,pc N.P. 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 disease, 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 [...] 1-4/unsp chr kdny Office Visit 06/21/2018 11:58a [facility] E87.2 Acidosis Assoc,pc 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 SONYA Solo N18.9 [...] ulcer of right heel and midfoot w [facility] severt Office Visit 06/20/2018 11:57a [facility] E87.2 Acidosis Assoc,pc 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 SONYA Solo N18.9 [...] to excess calories Office Visit 06/19/2018 11:57a [facility]osis Assoc,pc 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 SONYA Solo E11.22 Type 2 diabetes mellitus w diabetic chronic kidney disease I10 Essential (primary) hypertension N18.9 Chronic kidney disease, unspecified Office Visit 06/19/2018 10:15a Orthopedic Jayson Alba, L97.419 Non-prs chr Services Of MD ulcer of right C.M.A. heel and midfoot w unsp severt Z79.4 custodial (current) use of insulin E11.621 Type 2 diabetes mellitus with foot ulcer Office Visit 05/29/2018 1:12p [facility] Bairon Whitmore E11.621 Type 2 Assoc,pc MD Apurva diabetes 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 mellitus with foot ulcer L97.418 [...] lower limb C.M.A. Office Visit 05/29/2018 12:31p [facility] Michael Olvera E10.621 Type 1 diabetes Martina Martinez M.D. 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 N18.4 Chronic kidney disease, stage 4 (severe) Office Visit 05/28/2018 1:12p [facility] Bairon Whitmore E11.621 Type 2 Assjazmin multani MD diabetes 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 mellitus with foot ulcer L97.418 Non-prs chronic ulcer of right heel/midft with oth severity B95.61 Methicillin suscep staph infct causing dis classd elswhr L03.115 Cellulitis of right lower limb E87.8 Oth disorders of electrolyte and fluid balance, NEC E11.22 Type 2 diabetes mellitus w diabetic chronic kidney disease N18.4 Chronic kidney disease, stage 4 (severe) Office Visit 05/27/2018 1:12p [facility] Bairon Whitmore E11.621 Type 2 Assjazmin multani MD diabetes 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 mellitus with foot ulcer [...] right lower limb Office Visit 05/26/2018 1:11p [facility] Beth Tobias, E11.621 Type 2 jazmin Anna M.D. diabetes 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 mellitus with foot ulcer L97.418 Non-prs chronic ulcer of right heel/midft with oth severity M86.271 Subacute osteomyelitis, right ankle and foot D63.8 Anemia in other chronic diseases classified elsewhere I10 Essential (primary) hypertension E11.22 Type 2 diabetes mellitus w diabetic chronic kidney disease N18.4 Chronic kidney disease, stage 4 (severe) Office Visit 05/25/2018 [facility] Beth Tobias, L97.418 Non-prs chronic 1:10p jazmin Anna M.D. ulcer of right 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 heel/midft with oth severity E11.621 Type 2 diabetes mellitus with foot ulcer N18.4 Chronic kidney disease, stage 4 (severe) E11.22 Type 2 diabetes mellitus w diabetic chronic kidney disease I10 Essential (primary) hypertension E11.65 Type 2 diabetes mellitus with hyperglycemia Office Visit 04/17/2018 9:45a [facility] Robert L97.518 Non-prs chronic Services Of Alondra Galarza. ulcer oth prt C.M.A. right foot with oth severity Office Visit 03/20/2018 9:30a Orthopedic Robert M17.12 Unilateral Services Of Tia Galarza primary C.M.A. osteoarthritis, left knee M86.271 Subacute osteomyelitis, right ankle and foot Office Visit 02/27/2018 11:10a [facility] Doug Olvera Z86.19 Personal history Infectious Alondra Martinez. of other Diseases infectious and parasitic diseases E11.40 Type 2 diabetes mellitus with diabetic neuropathy, [facility] Z89.421 Acquired absence of other right toe(s) Office Visit 01/17/2018 [facility] Doug Olvera E11.69 Type 2 diabetes 1:16p For Infectious Tia Martinez mellitus with Diseases other specified complication M86.171 Other acute osteomyelitis, right ankle and foot Z89.421 Acquired absence of other right toe(s) Office Visit 01/17/2018 [facility] M86.271 Subacute 11:02a Assoc,jazmin [facility] osteomyelitis, 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 Germania, WINDOW SHADE ESTIMATOR right ankle and foot E11.51 Type 2 diabetes w diabetic peripheral angiopath w/o gangrene N18.3 Chronic kidney disease, stage 3 (moderate) Z79.4 custodial (current) use of insulin Office Visit 01/16/2018 [facility] M86.271 Subacute 11:02a Assoc,[facility] osteomyelitis, 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 Germania, WINDOW SHADE ESTIMATOR right ankle and foot E11.51 Type 2 diabetes w diabetic peripheral angiopath w/o gangrene N18.3 Chronic kidney disease, stage 3 (moderate) Z79.4 custodial (current) use of insulin Office Visit 01/15/2018 [facility] Doug Olvera E11.69 Type 2 diabetes 12:39p For Infectious Tia Martinez mellitus with Diseases other specified complication M86.171 Other acute osteomyelitis, right ankle and foot E11.22 Type 2 diabetes mellitus w diabetic chronic kidney disease N18.4 Chronic kidney disease, stage 4 (severe) E11.40 Type 2 diabetes mellitus with diabetic neuropathy, unsp Z89.421 Acquired absence of other right toe(s) Office Visit 01/15/2018 [facility] Bárbara M86.271 Subacute 11:01a jazmin Anna [facility] osteomyelitis, 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 SONYA Solo right ankle and foot E11.51 Type 2 diabetes w diabetic peripheral angiopath w/o gangrene N18.3 Chronic kidney disease, stage 3 (moderate) Z79.4 custodial (current) use of insulin Office Visit 01/14/2018 [facility] Yue Mccall 86.271 Subacute 11:00a jazmin Anna N.P. osteomyelitis, 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 right ankle and foot E11.51 Type 2 diabetes w diabetic peripheral angiopath w/o gangrene N18.3 Chronic kidney disease, stage 3 (moderate) Z79.4 custodial (current) use of insulin Office Visit 01/13/2018 [facility] Yue Mccall 86.271 Subacute 10:59a jazmin Anna N.P. osteomyelitis, 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 right ankle and foot E11.51 Type 2 diabetes w diabetic peripheral angiopath w/o gangrene N18.3 Chronic kidney disease, stage 3 (moderate) Z79.4 custodial (current) use of insulin Office 01/12/2018 [facility]86.271 Subacute Visit 10:58a jazmin Anna [place] osteomyelitis, 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 right ankle and foot E11.51 Type 2 diabetes w diabetic peripheral angiopath w/o gangrene N18.3 Chronic kidney disease, stage 3 (moderate) Z79.4 custodial (current) use of insulin Office Visit 01/11/2018 [facility] Robert 86.[facility] Subacute 10:56a jazmin Anna M.D. 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 failure, 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 unspecified N18.3 Chronic kidney disease, stage 3 (moderate) E11.42 Type 2 diabetes mellitus with diabetic polyneuropathy [facility]69 Type 2 diabetes 1:15p For Infectious Imani MartinezD. mellitus with Diseases other specified complication M86.671 Other chronic osteomyelitis, right ankle and foot E11.40 Type 2 diabetes mellitus with diabetic neuropathy, unsp E11.22 Type 2 diabetes mellitus w diabetic chronic kidney disease N18.3 Chronic kidney disease, stage 3 (moderate) B95.61 Methicillin suscep staph infct causing dis classd elswhr [facility] N17.9 Acute kidney 3:01p jazmin Anna M.D. failure, 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 unspecified N18.3 Chronic kidney disease, stage 3 (moderate) E11.42 Type 2 diabetes mellitus with diabetic polyneuropathy Office Visit 10/16/2017 [facility] E11.69 Type 2 diabetes 1:07p For Infectious Imani MartinezD. mellitus with Diseases other specified complication M86.671 Other chronic osteomyelitis, right ankle and foot E11.40 Type 2 diabetes mellitus with diabetic neuropathy, unsp L03.031 Cellulitis of right toe E11.22 Type 2 diabetes mellitus w diabetic chronic kidney disease N18.9 Chronic kidney disease, unspecified Office Visit 10/16/2017 [facility] S90.851A Superficial 3:01p jazmin Anna M.D. foreign body, 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 right foot, initial encounter N17.9 Acute kidney failure, unspecified E11.42 Type 2 diabetes mellitus with diabetic polyneuropathy Office Visit 10/15/2017 [facility] S90.851A Superficial 3:00p jazmin Anna M.D. foreign body, 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 right foot, initial encounter N17.9 Acute kidney failure, unspecified N18.3 Chronic kidney disease, stage 3 (moderate) E11.42 Type 2 diabetes mellitus with diabetic polyneuropathy Office Visit 10/15/2017 [facility] Lee F M86.271 Subacute 9:39a Services Of MD Kenji osteomyelitis, C.M.A. right ankle and foot Office Visit 10/14/2017 [facility] Shawna S90.851A Superficial foreign 2:59p Assoc,jazmin Gonzalez D.O. body, right foot, 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 initial encounter N17.9 Acute kidney failure, unspecified N18.3 Chronic kidney disease, stage 3 (moderate) E11.42 Type 2 diabetes mellitus with diabetic polyneuropathy Office Visit 05/23/2017 [facility] Doug Olvera L97.321 Non-prs chronic 10:30a For Infectious Alondra Martinez. 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 E11.8 Type 2 diabetes mellitus with unspecified complications G62.9 Polyneuropathy, unspecified N18.3 Chronic kidney disease, stage 3 (moderate) Office Visit 02/03/2017 3:46p [facility] Scot Sutton, E87.5 Hyperkalemia Assoc,jazmin N.P. 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 E11.8 Type 2 diabetes mellitus with unspecified complications G62.9 Polyneuropathy, unspecified N18.3 Chronic kidney disease, stage 3 (moderate) Office Visit 01/25/2017 4:16p [facility] Ryan Howard, N18.3 Chronic kidney Assocjazmin M.D. 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 N18.4 Chronic kidney disease, stage 4 (severe) Z89.432 Acquired absence of left foot Office Visit 01/24/2017 [facility] Duog Olvera E10.69 Type 1 diabetes 8:18a For Infectious Tia Martinez 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 Office Visit 01/24/2017 4:15p [facility] Ryanhoney Howard, N18.3 Chronic kidney Assoc,jazmin Weber disease, stage 3 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 (moderate) Z89.432 Acquired absence of left foot E11.22 Type 2 diabetes mellitus w diabetic chronic kidney disease M86.60 Other chronic osteomyelitis, unspecified site Office Visit 01/23/2017 4:13p [facility] Vinicio Z89.432 Acquired Assoc,jazmin Dela Cruz MD absence of 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 left foot M86.60 Other chronic osteomyelitis, unspecified site E11.22 Type 2 diabetes mellitus w diabetic chronic kidney disease Office Visit 01/18/2017 11:19a [facility] Amanda Lynne, 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,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 N17.9 Acute kidney failure, unspecified N18.4 Chronic kidney disease, stage 4 (severe) M86.9 Osteomyelitis, unspecified Office Visit 01/17/2017 [facility] Thiago Pitts, R55 Syncope and 11:18a Assoc,pc PA collapse 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 N17.9 Acute kidney failure, unspecified E11.22 Type 2 diabetes mellitus w diabetic chronic kidney disease N18.4 Chronic kidney disease, stage 4 (severe) Office Visit 01/16/2017 11:18a [facility] Juni Manning, 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,jazmin Weber collapse 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 N17.9 Acute kidney failure, unspecified E11.22 Type 2 diabetes mellitus w diabetic chronic kidney disease N18.4 Chronic kidney disease, stage 4 (severe) Office Visit 01/11/2017 [facility] Robert M86.672 Other chronic 9:30a Services Of Татьяна Galarza M.D. 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 M86.672 Other chronic 11:30a For Infectious Tia Martinez osteomyelitis, left Diseases ankle and foot Office Visit 12/01/2015 [facility] Doug D. M86.672 Other chronic 10:10a For Infectious Tia Martinez osteomyelitis, left Diseases ankle and foot Office Visit 12/01/2015 [facility] Gayatri G47.9 Sleep disorder, 11:00a Sleep Services MD Mitchel unspecified Of [facility] E66.01 Morbid (severe) obesity due to excess calories Office Visit 10/29/2015 [facility] Doug Olvera M86.672 Other chronic 4:20p Martina Martinez M.D. osteomyelitis, left Diseases ankle and foot Office Visit 10/09/2014 [facility] 354.2 Lesion Ulnar Nerve 9:30a Services Of Tia Eli C.M.A. Office Visit 01/09/2013 [facility] Scot 790.6 Abnormal Blood 2:37p jazmin Anna, N.P. Chemistry Other 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 250.02 Diabetes Mellitus W/O Compl Type II Or Unspec Type Uncontrol 250.20 Diabetes W/ Hyperosmolarity Type II Or Unspec Controlled 357.2 Polyneuropathy In Diabetes Office Visit 09/17/2009 [facility] Beth Tobias, 251.2 Hypoglycemia Other 12:15a jazmin Anna M.D. Unspec 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 Plan of Treatment Future Appointment(s):09/05/2018 3:00 pm - Robert Galarza M.D. at [facility] AT [place]30/28/2018 - Robert Galarza M.D.L97.419 Non- pressure chronic ulcer of right heel and midfoot with unFollow up:1 week
--- OUTSIDE RECORDS SUMMARY | 2018-09-05 16:46 | XMS REPORT | Continuity of Care Document ---
:1965 External Reference #:[id number] Author Name Zoraida Galo Care Team Providers Name Role Phone Siddhartha Morrison D.O. Primary Care Physician Unavailable Payers Type Date Identification Numbers Payment Provider Subscriber Effective: Policy Number: [id number] Medicare Ammon Galo 2011 PayID: [id number] [address] [place] [address] Policy Number: [id number] Medicaid Ammon Galo PayID: [id number] [address] [place] [address] Advance Directives Description No Information Available Problems [...] Unknown smoker now occassionally Smoking Status Reviewed: 08/22/18 Patient is a former quit smoking and [...] Rec hours through D. - advanced care [facility], 12/19 home infusion M.D. Ceftriaxone 12/02 Hx Solution 2gm iv every 24 Rec hours through D. - [facility] [place], 01/26 Home Infusion M.D. Bactrim DS 12/21 [...] hours x 42 D. - days through [facility], 12/14 Aci . Ciprofloxacin 11/03 Hx Tablets 750mg 84tab 1 by mouth s twice a day x D. - [address] [facility], 12/21 (start this .D. when you start [...] 00 Hx Tablets 25mg as needed Unknown /0000 - 01/10 Vancomycin HCL 00 Hx [...] Older Vital Signs Date Vital Result Comment 08/22/2018 2:08pm Height 75.75 inches 6'3.75" Heart [...] Test Result H/L Range Note Wound 12/28/2017 [facility] Wound/Misc SEE RESULT 1 Culture/Sensi [address] [place] [address] Stain [phone] CBC Auto Diff 02/13/2017 [facility] White Blood 5.8 10^3/uL N 3.5-10.[address] [place] [address] [phone] Red Blood Count 3.77 10^6/uL Low 4.0-5.4 [...] % 0.1 N Comp Metabolic Panel 02/13/2017 [facility] Sodium 136 mmol/L N 133-[address] [place] [address] [phone] Potassium 4.7 mmol/L N 3.5-5.0 Chloride 105 [...] 36.5 N >60 3 Laboratory test 02/13/2017 [facility] C Reactive 15.84 mg/L High < 5.00 [address] [place] [address] [phone] CBC Auto Diff 02/06/2017 [facility] White Blood 5.9 N 3.5- 10.[address] Count 10^3/uL [place], [place] [id number] [phone] Red Blood Count 3.36 10^6/uL Low 4.0-5.4 [...] % 0.1 N Comp Metabolic Panel 02/06/2017 [facility] Sodium 137 mmol/L N 133-[address] [place] [address] [phone] Potassium 4.7 mmol/L N 3.5-5.0 Chloride 105 [...] 33.8 N >60 5 Laboratory test 02/06/2017 [facility] C Reactive 4.87 mg/L N < 5.00 [address] [place] [address] [phone] Laboratory test 01/23/2017 [facility] Point of Care 118 mg/dL High 74-106 [address] [place] [address] [phone] Electrolytes 01/23/2017 [facility] Sodium 131 Low 133-[address] mmol/[place] [address] [phone] Potassium 5.3 mmol/L High 3.5-5.0 Chloride 102 mmol/L N 101-111 Co2 Carbon Dioxide 23 mmol/L N 22-32 Anion Gap 6 mmol/L N 2-11 Laboratory test 01/23/2017 [facility] Blood Urea 43 mg/dL High 6-[address] [place] [address] [phone] Creatinine 01/23/2017 [facility] Creatinine 3.01 mg/dL High 0.67-1.[address] 7 [place] [address] [phone] Egfr Non- 22.3 N >60 Egfr 28.6 N >60 8 Inr/Protime 01/23/2017 [facility] Inr 1.13 High 0.89-1.[address] [place] [address] [phone] Laboratory test 01/23/2017 [facility] Point of 203 mg/dL High 74-106 [address] [place] [address] [phone] CBC Auto Diff 01/09/2017 [facility] White Blood 6.9 N 3.5- 10.[address] Count 10^3/[place] [address] [phone] Red Blood Count 3.38 10^6/uL Low 4.0-5.4 [...] % 0.1 N Comp Metabolic Panel 01/09/2017 [facility] Sodium 135 mmol/L N 133-[address] [place] [address] [phone] Potassium 5.6 mmol/L High 3.5-5.0 Chloride 108 [...] 39.3 N >60 11 Laboratory test 01/09/2017 [facility] C Reactive 24.87 mg/L High < 5.00 [address] [place] [address] [phone] CBC Auto Diff 01/02/2017 [facility] White Blood 4.8 N 3.5- 10.[address] Count 10^3/[place] [address] [phone] Red Blood Count 3.28 10^6/uL Low 4.0-5.4 [...] Cells % 0 N Laboratory test 01/02/2017 [facility] C Reactive 26.73 mg/L High < 5.00 [address] [place] [address] [phone] Comp Metabolic 01/02/2017 [facility] Sodium 134 mmol/L N 133- [address] [place] [address] [phone] Potassium 5.1 mmol/L High 3.5-5.0 Chloride 106 [...] N >60 15 CBC Auto Diff 12/27/2016 [facility] White Blood 6.6 10^3/uL N 3.5-10.[address] [place] [address] [phone] Red Blood Count 3.29 10^6/uL Low 4.0-5.4 [...] % 0 N Comp Metabolic Panel 12/27/2016 [facility] Sodium 134 mmol/L N 133-[address] [place] [address]8047 [phone] Potassium 5.2 mmol/L High 3.5-5.0 Chloride 104 [...] 35.8 N >60 16 Laboratory test 12/27/2016 [facility] C Reactive 21.08 mg/L High < 5.00 [address] [place] [address] [phone] CBC Auto Diff 12/12/2016 [facility] White Blood 6.7 N 3.5- 10.[address] Count 10^3/[place] [address] [phone] Red Blood Count 3.25 10^6/uL Low 4.0-5.4 [...] % 0.1 N Comp Metabolic Panel 12/12/2016 [facility] Sodium 136 mmol/L N 133-[address] [place] [address] [phone] Potassium 5.7 mmol/L High 3.5-5.0 Chloride 100 [...] 29.9 N >60 19 Laboratory test 12/12/2016 [facility] C Reactive 139.43 mg/L High < 5.00 [address] [place] [address] [phone] Basic Metabolic 12/09/2016 [facility] Sodium 133 mmol/L N 133- [address] [place] [address] [phone] Potassium 5.2 mmol/L High 3.5-5.0 Chloride 103 [...] N >60 21 CBC Auto Diff 12/06/2016 [facility] White Blood 7.0 10^3/uL N 3.5-10.[address] [place] [address] [phone] Red Blood Count 3.03 10^6/uL Low 4.0-5.4 [...] % 0 N Comp Metabolic Panel 12/06/2016 [facility] Sodium 131 mmol/L Low 133-[address] [place] [address] [phone] Potassium 5.3 mmol/L High 3.5-5.0 Chloride 103 [...] 27.9 N >60 23 Laboratory test 12/06/2016 [facility] C Reactive 147.38 mg/L High < 5.00 [address] [place] [address] [phone] Vancomycin Trough 15.5 g/mL N 25 Comp Metabolic Panel 11/29/2016 [facility] Sodium 134 mmol/L N 133-[address] [place] [address] [phone] Chloride 106 mmol/L N 101-111 Co2 Carbon [...] 4 mmol/L N 2-11 Laboratory test 11/29/2016 [facility] C Reactive 12.87 mg/L High < 5.00 [address] [place] [address] [phone] Hemoglobin A1c (Glyco HGB) 11.2 % High Less than 6.0 29 CBC Auto Diff 11/29/2016 [facility] White Blood 6.6 10^3/uL N 3.5-10.[address] [place] [address] [phone] Red Blood Count 3.79 10^6/uL Low 4.0-5.4 [...] Cells % 0.2 N Laboratory test 11/29/2016 [facility] Erythrocyte Sed 118 mm/Hr High 0-[address] [place] [address] [phone] CBC Auto Diff 12/21/2015 [facility] White Blood 5.2 N 3.5- 10.[address] Count 10^3/[place] [address] [phone] Red Blood Count 4.11 10^6/uL N 4.0-5.4 [...] % 0 N Comp Metabolic Panel 12/21/2015 [facility] Sodium 136 mmol/L N 133-[address] [place] [address] [phone] Potassium 4.8 mmol/L N 3.5-5.0 Chloride 103 [...] 33.5 N >60 30 Laboratory test 12/21/2015 [facility] Vancomycin Trough 15.8 g /mL N finding [address] [place] [address] [phone] C Reactive Protein 4.19 mg/L N < 5.00 31 CBC Auto Diff 12/15/2015 [facility] White Blood 4.8 10^3/uL N 3.5-10.[address] [place] [address] [phone] Red Blood Count 3.98 10^6/uL Low 4.0-5.4 [...] % 0 N Comp Metabolic Panel 12/15/2015 [facility] Sodium 138 mmol/L N 133-[address] [place] [address] [phone] Potassium 4.6 mmol/L N 3.5-5.0 Chloride 104 [...] 35.6 N >60 32 Laboratory test 12/15/2015 [facility] Vancomycin Trough 21.9 g /mL N finding [address] [place] [address] [phone] C Reactive Protein 7.69 mg/L High < 5.00 33 CBC Auto Diff 12/07/2015 [facility] White Blood 4.2 10^3/uL N 3.5-10.[address] [place] [address] [phone] Red Blood Count 3.62 10^6/uL Low 4.0-5.4 [...] % 0.1 N Comp Metabolic Panel 12/07/2015 [facility] Sodium 137 mmol/L N 133-[address] [place] [address] [phone] Potassium 4.7 mmol/L N 3.5-5.0 Chloride 106 [...] 39.8 N >60 34 Laboratory test 12/07/2015 [facility] Vancomycin Trough 18.2 g /mL N finding [address] [place] [address] [phone] C Reactive Protein 8.83 mg/L High < 5.00 35 CBC Auto Diff 11/30/2015 [facility] White Blood 4.1 10^3/uL N 3.5-10.[address] [place] [address] [phone] Red Blood Count 3.59 10^6/uL Low 4.0-5.4 [...] % 0 N Comp Metabolic Panel 11/30/2015 [facility] Sodium 136 mmol/L N 133-[address] [place] [address] [phone] Potassium 4.8 mmol/L N 3.5-5.0 Chloride 103 [...] 38.1 N >60 36 Laboratory test 11/30/2015 [facility] Vancomycin Trough 16.7 g /mL N finding [address] [place] [address] [phone] C Reactive Protein 4.80 mg/L N < 5.00 37 TSH (Thyroid Stim Horm) 1.35 ?IU/mL N 0.34-5.60 T3 Total 0.80 ng/mL Low 0.87-1.78 CBC Auto Diff 11/23/2015 [facility] White Blood 4.4 10^3/uL N 3.5-10.[address] [place] [address] [phone] Red Blood Count 3.48 10^6/uL Low 4.0-5.4 [...] Cells % 0.1 N Basic Metabolic 11/23/2015 [facility] Sodium 132 mmol/L Low 133-145 Panel [address] [place] [address] [phone] Potassium 4.8 mmol/L N 3.5-5.0 Chloride 103 mmol/L N 101-111 Co2 Carbon Dioxide 23 mmol/L N 22-32 Anion Gap 6 mmol/L N 2-11 Glucose 369 mg/dL High 70-100 Blood Urea Nitrogen 36 mg/dL High 6-24 Creatinine 2.61 mg/dL High 0.67-1.17 BUN/Creatinine Ratio 13.8 N 8-20 Calcium 8.1 mg/dL Low 8.6-10.3 Egfr Non- 26.4 N >60 Egfr 33.9 N >60 38 Laboratory test 11/23/2015 [facility] Vancomycin Trough 14.7 g /mL N finding [address] [place] [address] [phone] C Reactive Protein 7.00 mg/L High < 5.00 39 Laboratory test 11/16/2015 [facility] Vancomycin 17.2 g/mL N finding [address] [place] [address] [phone] Basic Metabolic 11/16/2015 [facility] Sodium 138 mmol/L N 133- [address] 5 [place] [address] [phone] Potassium 4.5 mmol/L N 3.5-5.0 Chloride 107 [...] mg/dL Low 8.6-10.3 CBC Auto Diff 11/13/2015 [facility] White Blood 4.8 10^3/uL N 3.5-10.[address] [place] [address] [phone] Red Blood Count 3.49 10^6/uL Low 4.0-5.4 [...] Cells % 0.2 N Laboratory test 11/13/2015 [facility] Vancomycin Trough 26.2 g /mL N 41 finding [address] [place] [address] [phone] C Reactive Protein 7.37 mg/L High < 5.00 42 Comp Metabolic Panel 11/13/2015 [facility] Sodium 137 mmol/L N 133-145 [address] [place] [address] [phone] Potassium 4.8 mmol/L N 3.5-5.0 Chloride 107 [...] 53.8 N >60 43 Laboratory test 10/29/2015 [facility] Wound SEE RESULT [address] Culture/[place] [address] [phone] Comp Metabolic 10/29/2015 [facility] Sodium 133 mmol/L N 133- [address] [place] [address] [phone] Potassium 5.2 mmol/L High 3.5-5.0 Chloride 103 [...] N >60 45 CBC Auto Diff 10/29/2015 [facility] White Blood 4.9 10^3/uL N 3.5-10.[address] [place] [address] [phone] Red Blood Count 3.91 10^6/uL Low 4.0-5.4 [...] Cells % 0.1 N Laboratory test 10/29/2015 [facility] C Reactive 6.00 mg/L High < 5.00 [address] [place] [address]26 [phone] 1 SEE RESULT BELOW Name: AMMON GALO : [address]: Ashley GEORGE Acct: [id number] Unit: [id number] AGE: 52 Location: [facility] Re12/28/17 SEX: M Status: REG REF SPEC: [id number] MARY: 12/28/17-1156 [facility] DR: Ashley GEORGE REQ: [id number] RECD: 12/28/17 STATUS: COMP _ SOURCE: MISC SOURC SPDESC:OTHER ORDERED: Culture Stain COMMENTS: Source: Right Foot per Praveena Mota RN.; [id number] Procedure Result Reported Site Wound/Misc Gram Stain [...] CONTINUED ON NEXT PAGE DEPARTMENT OF PATHOLOGY, [address] [place] [id number] Dayne Pires M.D. Director [facility] # [id number] Patient: MARYAMMON [id number] (Continued) Specimen: [id number] Collected: 12/28/17-1155 Received: 12/28/17 (Continued) Procedure Result Reported Site Wound/Misc Culture Final (continued) 12/30/17- 1021 1. STAPHYLOCOCCUS AUREUS (continued) M.I.C. RX --------- ------ Vancomycin <=0.5 S Imipenem-Deduced S * Ampicillin/Sulbactam-Deduced S Cefazolin-Deduced S * These antibiotics are not available in the [facility] Formulary Contact the Microbiology Department for any additional antibiotic reporting. * ML - Main Lab . END OF REPORT DEPARTMENT OF PATHOLOGY, [address] [place] [address] Dayne Pires M.D. Director [facility] # [id number] 3 Because ethnic data is not always [...] (or dialysis) 6 Acute inflammation: >10.00 7 Licensed Practical Vocational Nurse: [id number] 8 Because ethnic data is not always [...] 5 Kidney failure <15 (or dialysis) 9 Licensed Practical Vocational Nurse: [id number] 11 Because ethnic data is not always [...] (or dialysis) 12 Acute inflammation: >10.00 13 [id number] Acute inflammation: >10.00 15 Because ethnic [...] inflammation: >10.00 18 FAX RESULTS TO AT [phone] [id number] 19 Because ethnic data is not always [...] 5 Kidney failure <15 (or dialysis) 22 [id number] 23 Because ethnic data is not always [...] (or dialysis) 24 Acute inflammation: >10.00 25 [id number] 26 Because ethnic data is not always [...] K:6.[address] BAER at: 19:10:52 by:[id number] Read back by:DR BAER 28 Acute inflammation: >10.00 29 Therapeutic target for the treatment of diabetes Mellitus patients is <7% HBA1C, and in selective patients <6.0%.Please refer to [place] [employer] Diabetic care guidelines for further [...] (or dialysis) 41 ATN: DELMI URIAS FAX# [phone] 42 Acute inflammation: >10.00 43 Because ethnic [...] [address]: Doug Martinez MD Acct: [id number] Unit: [id number] AGE: 50 Location: [facility] Re10/29/15 SEX: M Status: REG REF SPEC: [id number] MARY: 10/29/15-162 [facility] DR: Doug Martinez MD REQ: [id number] RECD: 10/29/15899 STATUS: COMP _ SOURCE: FOOT,LEFT SPDESC: ORDERED: Culture Stain Procedure Result Reported Site Wound/Misc Gram Stain Final 10/30/15- 0830 ML 1+ Neutrophils 3+ Gram Positive Bacilli Wound/Misc Culture Final 10/30/15- 1238 ML Organism 1 CORYNEBACTERIUM STRIATUM Quantity 2+ * ML - MAIN LAB ([facility]) . END OF REPORT * ML=Testing performed at Main Lab DEPARTMENT OF PATHOLOGY, [address] [place] [address] Dayne Pires M.D. Director [facility] # [id number] 45 Because ethnic data is not always [...] inflammation: >10.00 Procedures Date Code Description Status 08/13/2018 01005 Apply Total Contact Leg Cast Completed 08/08/2018 56529 Walking Cast Completed 07/27/2018 06665 Apply Total Contact Leg Cast Completed 07/18/2018 54434 Walking Cast Completed 07/11/2018 31499 Apply Total Contact Leg Cast Completed 06/20/2018 72473 ECHO Transthorasic Realtime 2D W Doppler & Color Flow Hosp Completed 06/19/2018 50499 Apply Total Contact Leg Cast Completed 02/14/2018 97955 Apply Total Contact Leg Cast Completed 01/16/2018 06582 Amputation Foot Midtarsal Completed 01/16/2018 11467 Amputation Foot Midtarsal Completed 01/16/2018 15216 Stress Test Supervsn W/Out I/R Completed 01/16/2018 83140 Treadmill Interp/Report Only Completed 01/15/2018 38626 EKG, Interpretation Only Completed 01/15/2018 31522 Amputation Foot Midtarsal Completed 01/14/2018 57145 EKG, Interpretation Only Completed 10/26/2017 91680 Short Leg Cast Completed 10/16/2017 37513 Amputation Toe MP JT Completed 10/16/2017 27073 Amputation Toe MP JT Completed 10/16/2017 19232 Amputation Toe MP JT Completed 10/16/2017 92144 Amputation Toe MP JT Completed 10/16/2017 40201 Amputation Toe MP JT Completed 02/07/2017 86102 Short Leg Cast Completed 02/03/2017 18754 EKG, Interpretation Only Completed 01/23/2017 51904 Amputation Foot Midtarsal Completed 01/23/2017 49176 Amputation Foot Midtarsal Completed 01/17/2017 21128 ECHO Transthorasic Realtime 2D W Doppler & Color Flow Hosp Completed 01/17/2017 17109 Treadmill Interp/Report Only Completed 01/17/2017 58916 Stress Test Supervsn W/Out I/R Completed 01/16/2017 30984 EKG, Interpretation Only Completed 01/11/2017 58620 Rad Exam; Foot Comp Completed 02/01/2011 68107 EKG, Interpretation Only Completed 07/04/2006 71735 Treadmill Interp/Report Only Completed 07/04/2006 65271 Stress Test Supervsn W/Out I/R Completed 07/04/2006 40180 Stress Test Supervsn W/Out I/R Completed Encounters Type Date Location Provider Dx Diagnosis Office Visit 08/11/2018 [facility] Lisa Antonio MD R06.02 Shortness of 9:38a Assoc,pc breath 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 R10.32 Left lower quadrant pain R79.89 Other specified abnormal findings of blood chemistry E11.9 Type 2 diabetes mellitus without complications Office Visit 08/10/2018 9:38a [facility] Yue Mccall, R07.9 Chest pain , Assoc,pc N.P. unspecified 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 R06.02 Shortness of breath E11.22 Type 2 diabetes mellitus w diabetic chronic kidney disease N18.5 Chronic kidney disease, stage 5 Z79.4 manager terminal (current) use of insulin Z89.421 Acquired absence of other right toe(s) Z89.422 Acquired absence of other left toe(s) Office Visit 08/08/2018 [facility] Robert Rangel Other chronic 11:00a Services Of Татьяна Galarza M.D. osteomyelitis, AT [place] right ankle and foot Office Visit 07/11/2018 Orthopedic Robert Rangel Other chronic 10:45a Services Of Татьяна Galarza M.D. osteomyelitis, AT [place] right ankle and foot Office Visit 07/03/2018 [facility] Beth I16.0 Hypertensive 10:20a Assjazmin multani M.D. urgency 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 R11.2 Nausea with vomiting, unspecified L97.419 Non-prs chr ulcer of right heel and midfoot w uns severt E11.621 Type 2 diabetes mellitus with foot ulcer B95.4 Oth streptococcus as the cause of diseases classd elswhr Office Visit 07/02/2018 [facility] Francisco J Marks I16.0 Hypertensive 10:20a Assocjazmin II, M.D. urgency 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 I50.32 Chronic diastolic (congestive) heart failure K92.0 Hematemesis E87.2 Acidosis E11.22 Type 2 diabetes mellitus w diabetic chronic kidney disease N18.5 Chronic kidney disease, stage 5 L97.419 Non-prs chr ulcer of right heel and midfoot w unsp severt E11.621 Type 2 diabetes mellitus with foot ulcer Office Visit 06/23/2018 11:59a [facility] Yue Mccall, E87.70 Fluid overload, Assoc,pc N.P. unspecified 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 I50.32 Chronic diastolic (congestive) heart failure Z79.4 manager terminal (current) use of insulin N18.5 Chronic kidney disease, stage 5 E11.22 Type 2 diabetes mellitus w diabetic chronic kidney disease Office Visit 06/22/2018 11:59a [facility] Yue Mcacll, N18.9 Chronic kidney Assoc,pc N.P. disease, 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 [...] 1-4/unsp chr kdny Office Visit 06/21/2018 11:58a [facility] [place] E87.2 Acidosis Assoc,pc 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 SONYA Solo N18.9 [...] due to excess calories Office Visit 06/20/2018 11:57a [facility] E87.2 Acidosis Assoc,pc 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 SONYA Solo N18.9 [...] to excess calories Office Visit 06/19/2018 11:57a [facility] [place] E87.2 Acidosis Assoc,pc 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 SONYA Solo E11.22 Type 2 diabetes mellitus w diabetic chronic kidney disease I10 Essential (primary) hypertension N18.9 Chronic kidney disease, unspecified Office Visit 06/19/2018 10:15a Orthopedic Jayson Alba, L97.419 Non-prs chr Services Of MD ulcer of right C.M.A. heel and midfoot w unsp severt Z79.4 long-term (current) use of insulin E11.621 Type 2 diabetes mellitus with foot ulcer Office Visit 05/29/2018 [facility] E11.621 Type 2 Assoc,jazmin Mixon MD [...] Oth disorders of electrolyte and fluid balance, [facility] Office Visit 05/29/2018 11:49a Orthopedic Jeet Holt, L03.115 Cellulitis of Services Of PA-C right lower limb C.M.A. Office Visit 05/29/2018 12:31p [facility] Doug Olvera E10.621 Type 1 diabetes Martina Martinez M.D. 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 diabetes 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 mellitus with foot ulcer L97.418 Non-prs chronic ulcer of right heel/midft with oth severity M86.271 Subacute osteomyelitis, right ankle and foot D63.8 Anemia in other chronic diseases classified elsewhere I10 Essential (primary) hypertension E11.22 Type 2 diabetes mellitus w diabetic chronic kidney disease N18.4 Chronic kidney disease, stage 4 (severe) Office Visit 05/25/2018 [facility] Beth Tobias L97.418 Non-prs chronic 1:10p jazmin Anna M.D. ulcer of right 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 heel/midft with oth severity E11.621 Type 2 diabetes mellitus with foot ulcer N18.4 Chronic kidney disease, stage 4 (severe) E11.22 Type 2 diabetes mellitus w diabetic chronic kidney disease I10 Essential (primary) hypertension E11.65 Type 2 diabetes mellitus with hyperglycemia Office Visit 04/17/2018 9:45a Monie Jones L97.518 Non-prs chronic Services Of Tia Galarza ulcer oth prt C.M.A. right foot with oth severity Office Visit 03/20/2018 9:30a Orthopedic Robert M17.12 Unilateral Services Of Tia Galarza primary C.M.A. osteoarthritis, left knee M86.271 Subacute osteomyelitis, right ankle and foot Office Visit 02/27/2018 11:10a [facility] Michael Olvera Z86.19 Personal history Infectious Tia Martinez of other Diseases infectious and parasitic diseases E11.40 Type 2 diabetes mellitus with diabetic neuropathy, unsp Z89.421 Acquired absence of other right toe(s) Office Visit 01/17/2018 [facility] Doug Olvera E11.69 Type 2 diabetes 1:16p For Infectious Tia Martinez mellitus with Diseases other specified complication M86.171 Other acute osteomyelitis, right ankle and foot Z89.421 Acquired absence of other right toe(s) Office Visit 01/17/2018 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 osteomyelitis, 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 right ankle and foot E11.51 Type 2 diabetes w diabetic peripheral angiopath w/o gangrene N18.3 Chronic kidney disease, stage 3 (moderate) Z79.4 long-term (current) use of insulin Office Visit 01/13/2018 [facility] Yue Mccall M86.271 Subacute 10:59a jazmin Anna N.P. osteomyelitis, 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 right ankle and foot E11.51 Type 2 diabetes w diabetic peripheral angiopath w/o gangrene N18.3 Chronic kidney disease, stage 3 (moderate) Z79.4 manager terminal (current) use of insulin Office 01/12/2018 [facility] M86.271 Subacute Visit 10:58a jazmin [place] osteomyelitis, 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 right ankle and foot E11.51 Type 2 diabetes w diabetic peripheral angiopath w/o gangrene N18.3 Chronic kidney disease, stage 3 (moderate) Z79.4 long-term (current) use of insulin Office Visit 01/11/2018 [facility] M86.271 Subacute 10:56a jazmin Anna M.D. osteomyelitis, 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 right ankle and foot E11.51 Type 2 diabetes w diabetic peripheral angiopath w/o gangrene N18.3 Chronic kidney disease, stage 3 (moderate) Z79.4 long-term (current) use of insulin Office Visit 10/19/2017 3:02p [facility] N17.9 Acute kidney Assocjazmin M.D. failure, 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 unspecified N18.3 Chronic kidney disease, stage 3 (moderate) E11.42 Type 2 diabetes mellitus with diabetic polyneuropathy Z79.4 long-term (current) use of insulin Office Visit 10/18/2017 3:02p [facility] N17.9 Acute kidney Assocjazmin M.D. 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 mellitus with Diseases other specified complication M86.671 Other chronic osteomyelitis, right ankle and foot E11.40 Type 2 diabetes mellitus with diabetic neuropathy, unsp E11.22 Type 2 diabetes mellitus w diabetic chronic kidney disease N18.3 Chronic kidney disease, stage 3 (moderate) B95.61 Methicillin suscep staph infct causing dis classd elswhr [facility] N[facility]9 Acute kidney 3:01p jazmin Anna M.D. failure, 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 unspecified N18.3 Chronic kidney disease, stage 3 (moderate) E11.42 Type 2 diabetes mellitus with diabetic polyneuropathy Office Visit 10/16/2017 [facility] Doug Olvera E11.69 Type 2 diabetes 1:07p For Infectious Tia Martinez mellitus with Diseases other specified complication M86.671 Other chronic osteomyelitis, right ankle and foot E11.40 Type 2 diabetes mellitus with diabetic neuropathy, unsp L03.031 Cellulitis of right toe E11.22 Type 2 diabetes mellitus w diabetic chronic kidney disease N18.9 Chronic kidney disease, unspecified Office Visit 10/16/2017 [facility] S90.851A Superficial 3:01p jazmin Anna M.D. foreign body, 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 right foot, initial encounter N17.9 Acute kidney failure, unspecified E11.42 Type 2 diabetes mellitus with diabetic polyneuropathy Office Visit 10/15/2017 [facility] S90.851A Superficial 3:00p jazmin Anna M.D. foreign body, 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 right foot, initial encounter N17.9 Acute kidney failure, unspecified N18.3 Chronic kidney disease, stage 3 (moderate) E11.42 Type 2 diabetes mellitus with diabetic polyneuropathy Office Visit 10/15/2017 [facility] F M86.271 Subacute 9:39a Services Of MD Kenji osteomyelitis, C.M.A. right ankle and foot Office Visit 10/14/2017 [facility] S90.851A Superficial foreign 2:59p Assjazmin multani D.O. body, right foot, 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 initial encounter N17.9 Acute kidney failure, unspecified N18.3 Chronic kidney disease, stage 3 (moderate) E11.42 Type 2 diabetes mellitus with diabetic polyneuropathy Office Visit 05/23/2017 [facility] Doug Olvera L97.321 Non-prs chronic 10:30a For Infectious Tia Martinez ulcer of left Diseases ankle limited to brkdwn skin Office Visit 03/27/2017 [facility] Doug Olvera M86.60 Other chronic 2:20p For Infectious Alondra Martinez. 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 E11.8 Type 2 diabetes mellitus with unspecified complications G62.9 Polyneuropathy, unspecified N18.3 Chronic kidney disease, stage 3 (moderate) Office Visit 02/03/2017 3:46p [facility] Scot Sutton, E87.5 Hyperkalemia Assoc,pc N.P. 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 E11.8 Type 2 diabetes mellitus with unspecified complications G62.9 Polyneuropathy, unspecified N18.3 Chronic kidney disease, stage 3 (moderate) Office Visit 01/25/2017 4:16p [facility] Ryan Howard, N18.3 Chronic kidney Assjazmin multani M.D. disease, stage 3 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 (moderate) M86.60 Other chronic osteomyelitis, unspecified site E11.22 Type 2 diabetes mellitus w diabetic chronic kidney disease Z89.432 Acquired absence of left foot Office Visit 01/25/2017 [facility] Doug Olvera E10.69 Type 1 diabetes 8:22a For Infectious Imani MartinezD. 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 collapse Hospitalists N17.9 Acute kidney failure, unspecified E11.22 Type 2 diabetes mellitus w diabetic chronic kidney disease N18.4 Chronic kidney disease, stage 4 (severe) Office Visit 01/11/2017 [facility] Robert M86.672 Other chronic 9:30a Services Of Татьяна Galarza M.D. 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 M86.672 Other chronic osteomyelitis, left ankle and foot D64.9 Anemia, unspecified Office Visit 11/29/2016 8:50a [facility] Michael Olvera L97.524 Non- prs Infectious Tia Martinez chronic ulcer Diseases oth prt left foot w necrosis of bone E11.40 Type 2 diabetes mellitus with diabetic neuropathy, unsp M86.672 Other chronic osteomyelitis, left ankle and foot E11.621 Type 2 diabetes mellitus with foot ulcer E11.69 Type 2 diabetes mellitus with other specified complication Office Visit 01/12/2016 [facility] Doug Olvera M86.672 Other chronic 11:30a For Infectious Tia Martinez osteomyelitis, left Diseases ankle and foot Office Visit 12/01/2015 [facility] Doug Olvera M86.672 Other chronic 10:10a For Infectious Tia Martinez osteomyelitis, left Diseases ankle and foot Office Visit 12/01/2015 [facility] Gayatri G47.9 Sleep disorder, 11:00a Sleep Services MD Mitchel unspecified Of [facility] E66.01 Morbid (severe) obesity due to excess calories Office Visit 10/29/2015 [facility] Doug Olvera M86.672 Other chronic 4:20p Infectious Tia Martinez osteomyelitis, left Diseases ankle and foot Office Visit 10/09/2014 [facility] [place] 354.2 Lesion Ulnar Nerve 9:30a Services Of Tia Eli CRafaelM.ARafael Office Visit 01/09/2013 [facility] Scot 790.6 Abnormal Blood 2:37p Assjazmin multani, N.P. Chemistry Other Hospitalists 250.02 Diabetes Mellitus W/O Compl Type II Or Unspec Type Uncontrol 250.20 Diabetes W/ Hyperosmolarity Type II Or Unspec Controlled 357.2 Polyneuropathy In Diabetes Office Visit 09/17/2009 [facility] Beth Tobias, 251.2 Hypoglycemia Other 12:15a jazmin Anna M.D. Unspec Hospitalists Plan of Treatment Future Appointment(s):08/29/2018 2:45 pm - Robert Galarza M.D. at [facility]
--- NOTE | 2018-09-05 16:55 | UC ---
Syncope/New Syncope HPI - HPI Summary HPI Summary: pt presents for evaluation of his near syncopal episode at his orthopedic surgeon's office next door. pt states he felt light headed and dizzy. he had a large bm and felt worse. he was sent to the for further evaluation. pt states that he does not feel well. he denies missing any of his insulin or any changes in his medications. he denies any headache, chest pain, dyspnea, vomiting, or diarrhea. he has a non-healing wound to his right foot. he had a new cast placed to his right foot. 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 lips swelled up." trimethoprim [From Bactrim] Allergy "I don't Verified 09/05/18 17:56 know ... lips swelled up." Home Medications: Home Medications Gabapentin CAP(*) [Neurontin 300 CAP(*)] 300 mg PO BID 09/05/18 [History Confirmed 09/05/18] PMH/Surg Hx/FS Hx/Imm Hx Previously Healthy: Yes Endocrine History: Diabetes - Surgical History Surgical History: Yes Surgery Procedure, Year, and Place: right big toe amputation, - ALL REMOVED NOW (11/2017). CATARACT WITH LENS IMPLANTS - BY DR DENNEY. 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 - Family History Known Family History: Positive: Diabetes Negative: Cardiac Disease - Social History Alcohol Use: None Substance Use Type: None Substance Use Comment - Amount & Last Used: CHEWING TOBACCO Smoking Status (MU): Former Smoker Type: Smokeless Tobacco Amount Used/How Often: quit in 2009 Length of Time of Smoking/Using Tobacco: <1 PPD x 26 Years Have You Smoked in the Last Year: No When Did the Patient Quit Smoking/Using Tobacco: 2009 Household Exposure Type: Cigarettes - Immunization History Most Recent Influenza Vaccination: 2018 Most Recent Pneumonia Vaccination: 2018 Review of Systems All Other Systems Reviewed And Are Negative: No Constitutional: Positive: Fatigue Skin: Negative: Rash Eyes: Positive: Blurred Vision ENT: Negative: Epistaxis Respiratory: Negative: Cough Cardiovascular: Negative: Chest Pain Gastrointestinal: Negative: Abdominal Pain Genitourinary: Negative: Frequency Motor: Positive: Weakness Neurological: Positive: Weakness Is Patient Immunocompromised?: No Physical Exam Triage Information Reviewed: Yes Appearance: Ill-Appearing - pt pale and weak Vital Signs: Initial Vital Signs Temp 98.1 F 09/05/18 16:44 Pulse 81 09/05/18 16:44 Resp 18 09/05/18 16:44 BP 195/101 09/05/18 16:44 Pulse Ox 100 09/05/18 16:44 Eyes: Positive: Other: - conjunctiva pale ENT: Positive: Other - dry mucous membranes Neck exam: Normal Respiratory: Positive: Chest non-tender, Lungs clear Cardiovascular: Positive: RRR Abdomen Description: Positive: Nontender, Soft Bowel Sounds: Positive: Present Musculoskeletal: Positive: Other: - generalized weakness Neurological: Positive: Alert Syncope Course/Dx - Course Course Of Treatment: pt was hyperglycemic 386. His ekg did not show a stemi. he was not tachycardic. I discussed with pt the importance to be evaluated in the emergency dept. he refused to go to [facility] or to [place]. he wanted to go to [facility]. Ambulance arrived and took the patient. I called [place] [facility] and spoke to Radha the FOOTBALL COACH. He is aware of pt's arrival. - Differential Dx/Diagnosis Provider Diagnosis: Near syncope Discharge - Sign-Out/Discharge Documenting (check all that apply): Patient Departure All imaging exams completed and their final reports reviewed: No Studies - Discharge Plan Condition: Stable Disposition: TRANS H[facility] CARE FAC Patient Education Materials: Near Syncope (ED) Referrals: Siddhartha Morrison DO [Primary Care Provider] - Additional Instructions: Go to [facility]. We have called 911 and the ambulance will take you. - Billing Disposition and Condition Condition: STABLE Disposition: Trans Higher Lvl of Care Fac
[2018-09-05 16:59] VITALS: BP 164/93
== END 2018-09-05 16:55 | disposition short-term general hospital (02) ==
LOC: UCCORT 16:32
DX: R55 Syncope and collapse (principal); Z88.1 Allergy status to other antibiotic agents; E11.9 Type 2 diabetes mellitus without complications; Z87.891 Personal history of nicotine dependence
CPT/HCPCS: 93005; 99213; G0463

== ENCOUNTER 2018-09-05 17:50 | Inpatient (IN) | payer MEDICARE, MEDICAID ==
[2018-09-05 18:48] LABS: ABS Basophils 0 10^3/ul (0-0.2); ABS Eosinophils 0.1 10^3/ul (0-0.6); ABS Lymphocytes 1.1 10^3/ul (1.0-4.8); ABS Monocytes 0.5 10^3/ul (0-0.8); ABS Neutrophils 3.5 10^3/ul (1.5-7.7); ABS Nucleated RBC 0 10^3/ul; Eosinophil % 2.5 %; Hematocrit 30 % (42-52); Hemoglobin 9.8 g/dl (14.0-18.0); Lymphocyte % 20.1 %; Mean Corpuscular HGB Conc 33 g/dl (31-36); Mean Corpuscular Hemoglobin 28 pg (27-31); Mean Corpuscular Volume 85 fL (80-94); Mean Platelet Volume 8.3 fL (7.4-10.4); Nucleated Red Blood Cells % 0; Platelet Count 137 10^3/ul (150-450); Red Blood Count 3.51 10^6/ul (4.00-5.40); Red Cell Distribution Width 17 % (10.5-15); White Blood Count 5.3 10^3/ul (3.5-10.8)
[2018-09-05 19:02] LABS: EGFR Non-African American 9.3 (>60)
[2018-09-05] MEDS ORDERED: NS 0.9% 1000 ML* 1,000 ML IV ONE (19:52)
[2018-09-05] MEDS ORDERED: Insulin REGULAR(*) 1 UNITS UNIT IV PUSH ONE (20:02)
[2018-09-05] MEDS ORDERED: Insulin IVPB 100 units/100 ml 100 UNITS/100 ML UNIT IVPB SCH (21:00)
--- NOTE | 2018-09-05 21:52 | ED ---
Syncope/Near Syncope - HPI Summary HPI Summary: Per EMS patient complains of episode of near-syncope while at wound clinic today with associated diaphoresis and paleness. EMS denies fall, event was witnessed by clinic staff. Patient states that after getting up out of wheelchair he got lightheaded, and does not remember anything until he was being wheeled out of the clinic. Patient was in clinic for diabetic lower extremity wounds which had already been checked and wrapped. Denies headache, fever, cough, sore throat, CP, SOB, N/V/D, abdominal pain, change in urine, change in BM. Patient states increasing stress lately. Patient also states he drinks a lot of monster energy drinks and coffee and he can. Patient states he is compliant with insulin treatment for diabetes. Medical history is HTN, chronic osteomyelitis, DM 2, HDL, anemia, CK D, CHF, COPD, hyperkalemia. - History Of Current Complaint Chief Complaint: EDWeakness Time Seen by Provider: 09/05/18 17:58 Hx Obtained From: Patient Onset/Duration: Sudden Onset Timing: Intermittent Episode Lasting Context: Witnessed Activity At Onset: Exertion Associated Head Trauma: No Associated Signs And Symptoms: Lightheadedness - Allergies/Home Medications Allergies/Adverse Reactions: Allergies Allergy/AdvReac Type Severity Reaction Status Date / Time peanut Allergy Rash Verified 09/05/18 17:56 peanut oil Allergy Rash Verified 09/05/18 17:56 spinach Allergy "My tongue Verified 09/05/18 17:56 swells up and I can't breathe." strawberry Allergy "My tongue Verified 09/05/18 17:56 swells right up." sulfamethoxazole Allergy "I don't Verified 09/05/18 17:56 [From Bactrim] know ... lips swelled up." trimethoprim [From Bactrim] Allergy "I don't Verified 09/05/18 17:56 know ... lips swelled up." PMH/Surg Hx/FS Hx/Imm Hx Endocrine/Hematology History: Reports: Hx Diabetes, Hx Anemia Denies: Hx Blood Transfusions, Hx Systemic Lupus Erythematosus, Hx Thyroid Disease, Other Endocrine/Hematological Disorders Cardiovascular History: Reports: Hx Angina, Hx Coronary Artery Disease, Hx Hypercholesterolemia, Hx Hypertension, Hx Peripheral Vascular Disease Denies: Hx Congestive Heart Failure, Hx Myocardial Infarction, Hx Pacemaker/ ICD, Hx Valvular Heart Disease Respiratory History: Reports: Hx Sleep Apnea - suspected, Other Respiratory Problems/Disorders - COPD Denies: Hx Asthma, Hx Cystic Fibrosis, Hx Lung Cancer, Hx Pleural Effusion, Hx Pneumonia, Hx Pulmonary Edema, Hx Pulmonary Embolism, Hx Seasonal Allergies Comment Only: Hx Chronic Obstructive Pulmonary Disease (COPD) - home O2, does not use GI History: Reports: Hx Gastroesophageal Reflux Disease Denies: Hx Ulcer History: Reports: Hx Chronic Renal Failure, Hx Kidney Stones - possibly 2017 per Pt, Other Problems/Disorders - CKD Denies: Hx Acute Renal Failure, Hx Dialysis, Hx Kidney Infection, Hx Renal Disease Musculoskeletal History: Reports: Other Musculoskeletal History Denies: Hx Rheumatoid Arthritis Sensory History: Reports: Hx Cataracts, Other Sensory Impairments - peripheral neuropathies Denies: Hx Contacts or Glasses, Hx Hearing Aid Opthamlomology History: Reports: Hx Cataracts, Other Sensory Impairments - peripheral neuropathies Denies: Hx Contacts or Glasses Neurological History: Reports: Hx Headaches, Hx Migraine, Hx Nerve Disease, Other Neuro Impairments/Disorders - Hx Pre syncope, phantom toe pain left foot, yousuf numb/tingling feet Denies: Hx Dementia, Hx Developmental Delay, Hx Seizures, Hx Spinal Cord Injury, Hx Transient Ischemic Attacks (TIA) Psychiatric History: Reports: Hx Anxiety - PRN LORAZEPAM, Hx Eating Disorder, Hx Depression, Hx of Violent Episodes Against Others Denies: Hx Panic Disorder, Hx Inpatient Treatment - Cancer History Hx Chemotherapy: No Hx Radiation Therapy: No Hx Palliative Cancer Treatment: No - Surgical History Surgery Procedure, Year, and Place: right big toe amputation, - ALL REMOVED NOW (11/2017). CATARACT WITH LENS IMPLANTS - BY DR DENNEY. 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 Hx Anesthesia Reactions: No Infectious Disease History: Yes Infectious Disease History: Reports: Hx of Known/Suspected MRSA - [facility], Chest, 2005 Denies: Hx Hepatitis, Hx Human Immunodeficiency Virus (HIV), History Other Infectious Disease, Traveled Outside the [place] in Last 30 Days - Family History Known Family History: Positive: Diabetes Negative: Cardiac Disease - Social History Alcohol Use: None Hx Substance Use: No Substance Use Type: Reports: None Substance Use Comment - Amount & Last Used: CHEWING TOBACCO Hx Tobacco Use: Yes Smoking Status (MU): Former Smoker Type: Smokeless Tobacco Amount Used/How Often: quit in 2009 Length of Time of Smoking/Using Tobacco: <1 PPD x 26 Years Have You Smoked in the Last Year: No Review of Systems Constitutional: Negative Eyes: Negative ENT: Negative Cardiovascular: Negative Respiratory: Negative Gastrointestinal: Negative Genitourinary: Negative Musculoskeletal: Negative Skin: Negative Neurological: Other Psychological: Normal All Other Systems Reviewed And Are Negative: Yes Physical Exam Triage Information Reviewed: Yes Vital Signs On Initial Exam: Initial Vitals Temp Pulse Resp BP Pulse Ox 97.2 F 79 16 179/84 96 09/05/18 17:51 09/05/18 17:51 09/05/18 17:51 09/05/18 17:51 09/05/18 17:51 Vital Signs Reviewed: Yes Appearance: Positive: Well-Appearing Skin: Positive: Warm Head/Face: Positive: Normal Head/Face Inspection Eyes: Positive: Normal ENT: Positive: Normal ENT inspection Neck: Positive: Supple Respiratory/Lung Sounds: Positive: Clear to Auscultation Cardiovascular: Positive: Normal Abdomen Description: Positive: Nontender Musculoskeletal: Positive: Normal Neurological: Positive: Normal Psychiatric: Positive: Normal AVPU Assessment: Alert - [place] Coma Scale Best Eye Response: 4 - Spontaneous Best Motor Response: 6 - Obeys Commands Best Verbal Response: 5 - Oriented Coma Scale Total: 15 Diagnostics - Vital Signs Vital Signs Temp Pulse Resp BP Pulse Ox 09/05/18 21:01 11 09/05/18 20:59 15 159/90 09/05/18 20:29 17 168/102 09/05/18 20:01 18 09/05/18 19:59 17 167/121 09/05/18 19:30 21 166/99 09/05/18 19:01 18 09/05/18 18:59 18 140/89 09/05/18 18:37 16 117/67 09/05/18 18:36 80 117/67 09/05/18 18:33 72 17 160/90 98 09/05/18 18:32 76 160/90 09/05/18 18:30 72 16 178/92 97 09/05/18 18:10 96 09/05/18 18:01 74 21 96 09/05/18 18:00 19 175/100 09/05/18 17:58 16 09/05/18 17:51 97.2 F 79 16 179/84 96 - Laboratory Lab Results: Lab Results 09/05/18 09/05/18 09/05/18 Range/Units 18:30 18:30 18:30 WBC 5.3 (3.5-10.8) 10^3/ul RBC 3.51 L (4.00-5.40) 10^6/ul Hgb 9.8 L (14.0-18.0) g/dl Hct 30 L (42-52) % MCV 85 (80-94) fL MCH 28 (27-31) pg MCHC 33 (31-36) g/dl RDW 17 H (10.5-15) % Plt Count 137 L (150-450) 10^3/ul MPV 8.3 (7.4-10.4) fL Neut % (Auto) 66.8 % Lymph % (Auto) 20.1 % [place] % (Auto) 9.8 % Eos % (Auto) 2.5 % Baso % (Auto) 0.8 % Absolute Neuts (auto) 3.5 (1.5-7.7) 10^3/ul Absolute Lymphs (auto) 1.1 (1.0-4.8) 10^3/ul Absolute Monos (auto) 0.5 (0-0.8) 10^3/ul Absolute Eos (auto) 0.1 (0-0.6) 10^3/ul Absolute Basos (auto) 0 (0-0.2) 10^3/ul Absolute Nucleated RBC 0 10^3/ul Nucleated RBC % 0 VBG pH (7.33-7.43) VBG pCO2 (41-51) mmHg VBG pO2 (35-45) mmHg VBG HCO3 (24-28) mmol/L VBG O2 Saturation (70-80) % VBG Base Excess (0-4) Sodium 133 L (135-145) mmol/L Potassium 4.8 (3.5-5.0) mmol/L Chloride 108 (101-111) mmol/L Carbon Dioxide 18 L (22-32) mmol/L Anion Gap 7 (2-11) mmol/L BUN 76 H (6-24) mg/dL Creatinine 6.34 H (0.67-1.17) mg/dL Est GFR ( Amer) 11.3 (>60) Est GFR (Non-Af Amer) 9.3 (>60) BUN/Creatinine Ratio 12.0 (8-20) Glucose 384 H (70-100) mg/dL Lactic Acid 0.8 (0.5-2.0) mmol/L Calcium 7.9 L (8.6-10.3) mg/dL Magnesium 1.6 L (1.9-2.7) mg/dL Total Bilirubin 0.30 (0.2-1.0) mg/dL AST 12 L (13-39) U/L ALT 10 (7-52) U/L Alkaline Phosphatase 88 (34-104) U/L Troponin I 0.01 (<0.04) ng/mL B-Natriuretic Peptide (<=100) pg/mL Total Protein 6.0 L (6.4-8.9) g/dL Albumin 2.9 L (3.2-5.2) g/dL Globulin 3.1 (2-4) g/dL Albumin/Globulin Ratio 0.9 L (1-3) TSH 1.89 (0.34-5.60) mcIU/mL Serum Alcohol < 10 (<10) mg/dL 09/05/18 09/05/18 09/05/18 Range/Units 18:30 19:35 20:51 WBC (3.5-10.8) 10^3/ul RBC (4.00-5.40) 10^6/ul Hgb (14.0-18.0) g/dl Hct (42-52) % MCV (80-94) fL MCH (27-31) pg MCHC (31-36) g/dl RDW (10.5-15) % Plt Count (150-450) 10^3/ul MPV (7.4-10.4) fL Neut % (Auto) % Lymph % (Auto) % [place] % (Auto) % Eos % (Auto) % Baso % (Auto) % Absolute Neuts (auto) (1.5-7.7) 10^3/ul Absolute Lymphs (auto) (1.0-4.8) 10^3/ul Absolute Monos (auto) (0-0.8) 10^3/ul Absolute Eos (auto) (0-0.6) 10^3/ul Absolute Basos (auto) (0-0.2) 10^3/ul Absolute Nucleated RBC 10^3/ul Nucleated RBC % VBG pH 7.24 L (7.33-7.43) VBG pCO2 43 (41-51) mmHg VBG pO2 48 H (35-45) mmHg VBG HCO3 18.1 L (24-28) mmol/L VBG O2 Saturation 87.1 H (70-80) % VBG Base Excess -8.5 L (0-4) Sodium (135-145) mmol/L Potassium (3.5-5.0) mmol/L Chloride (101-111) mmol/L Carbon Dioxide (22-32) mmol/L Anion Gap (2-11) mmol/L BUN (6-24) mg/dL Creatinine (0.67-1.17) mg/dL Est GFR ( Amer) (>60) Est GFR (Non-Af Amer) (>60) BUN/Creatinine Ratio (8-20) Glucose (70-100) mg/dL Lactic Acid 0.9 (0.5-2.0) mmol/L Calcium (8.6-10.3) mg/dL Magnesium (1.9-2.7) mg/dL Total Bilirubin (0.2-1.0) mg/dL AST (13-39) U/L ALT (7-52) U/L Alkaline Phosphatase (34-104) U/L Troponin I (<0.04) ng/mL B-Natriuretic Peptide 170 H (<=100) pg/mL Total Protein (6.4-8.9) g/dL Albumin (3.2-5.2) g/dL Globulin (2-4) g/dL Albumin/Globulin Ratio (1-3) TSH (0.34-5.60) mcIU/mL Serum Alcohol (<10) mg/dL Result Diagrams: 09/05/18 18:30 09/05/18 18:30 Lab Statement: Any lab studies that have been ordered have been reviewed, and results considered in the medical decision making process. Course/Dx Course Of Treatment: Per EMS patient complains of episode of near-syncope while at wound clinic today with associated diaphoresis and paleness. EMS denies fall , event was witnessed by clinic staff. Patient states that after getting up out of wheelchair he got lightheaded, and does not remember anything until he was being wheeled out of the clinic. Patient was in clinic for diabetic lower extremity wounds which had already been checked and wrapped. Denies headache, fever, cough, sore throat, CP, SOB, N/V/D, abdominal pain, change in urine, change in BM. Patient states increasing stress lately. Patient also states he drinks a lot of monster energy drinks and coffee and he can. Patient states he is compliant with insulin treatment for diabetes. Medical history is HTN, chronic osteomyelitis, DM 2, HDL, anemia, CK D, CHF, COPD, hyperkalemia. Physical exam unremarkable. Fresh wound wrapping on right lower extremity. No oozing, bleeding, foul odor noted. Vital signs within normal limits. PH 7.24. Anion gap 7. BGL 384. Creatinine 6.34 which is baseline for patient. Hemoglobin 9.8 which is baseline for patient. BNP 170 which is baseline for patient. Chest x-ray unremarkable. EKG unremarkable. Patient admitted for acidosis. - Diagnoses Provider Diagnoses: Hyperglycemia, Acidosis, Chronic kidney disease, Chronic anemia Discharge - Sign-Out/Discharge Documenting (check all that apply): Patient Departure - Discharge Plan Condition: Stable Disposition: ADMITTED TO [facility] - Billing Disposition and Condition Condition: STABLE Disposition: Admitted to [facility]
[2018-09-05] MEDS ORDERED: Gabapentin CAP(*) 300 MG ONE (22:12)
[2018-09-05] MEDS ORDERED: Magnesium Sulfate 2 GM IV* 2 GM/50 ML BAG IVPB ONE (22:44)
[2018-09-05] MEDS ORDERED: Ondansetron INJ* 2 MG/ML VIAL IV PRN (22:46)
[2018-09-05] MEDS ORDERED: Al Hydrox/Mg Hydrox/Simet LIQ* 30 ML UDC PO PRN (22:46)
[2018-09-05] MEDS ORDERED: Dextrose 50% Syringe 50 ML* 25 GM/50 ML SYRINGE IV PUSH PRN ×2 (22:53→22:54)
[2018-09-05 23:03] LABS: Urine Appearance Clear; Urine Blood 1+ (Negative); Urine Color Straw; Urine Ketones Negative (Negative); Urine Protein 3+(>=500 mg/dL) (Negative); Urine Red Blood Cell Absent (Absent); Urine Specific Gravity 1.015 (1.010-1.030); Urine Urobilinogen Negative (Negative); Urine White Blood Cell Trace(0-5/hpf) (Absent)
[2018-09-06] MEDS: Labetalol TAB* 100 MG PO SCH ×3 (00:27→21:28)
[2018-09-06] MEDS: Sodium Citrate/Citric Acid* 15 ML UDC PO SCH ×5 (04:11→21:28)
--- NOTE | 2018-09-06 04:55 | HP ---
CC: Dr. Morrison * HISTORY AND PHYSICAL: DATE OF ADMISSION: 09/05/18 TIME OF EVALUATION: 2300. PRIMARY CARE PHYSICIAN: Dr. Morrison. CHIEF COMPLAINT: Presyncope. HISTORY OF PRESENT ILLNESS: This is a 53-year-old male with a past medical history of diabetes, on insulin and CKD, who presented to the emergency room from Urgent Care after having a presyncopal episode. The patient states he was in his usual state of health and went to see the orthopedic surgeon in [place]. He went to the bathroom and was feeling a little dizzy, had a bowel movement shortly after, came out, was feeling lightheaded and dizzy, and the staff was worried about his appearance in that he looked rincon. They quickly hooked up to an IV and did an EKG and recommended he go to the emergency room. He refused to go to [place] and wanted to come here for further evaluation. He states he has never had presyncopal symptoms before. No lightheadedness or dizziness. No syncope. He was in his usual state of health. He states he knows that his renal function is getting worse. He did see a retail financial analyst while he was an inpatient a while ago and he was supposed to follow up as an outpatient, but has not done so. He states today his sugars have been unusually high. He does admit to eating a lot of jerky, he thinks it contributed to it, normally his sugars are well controlled. He denies any chest pain, no shortness of breath, no orthopnea. He states his urine output has been normal. No frequency or urgency. He states that he was recently taken off Lasix when he was at [place] and gained a lot of weight, but then they put it back on and he has been doing much better. He denies any NSAID use. In the emergency room, the patient had labs and imaging, they were concerned about his metabolic acidosis and deferred him to the hospitalist service for further evaluation. In the emergency room, the patient got a liter of fluid and 5 units of IV insulin. PAST MEDICAL HISTORY: 1. History of a non-healing chronic wound on the right foot with a cast placed today on 09/05/18 by Orthopedic Surgery. 2. 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 3. History of cataracts with lens implant. 4. Diabetes, on insulin, complicated by neuropathy and nephropathy. 5. COPD. 6. CHF with preserved EF. 7. CKD. 8. Anemia of chronic disease. 9. Anxiety. MEDICATIONS: We need to obtain his med rec. The patient notes: 1. He takes gabapentin twice a day. 2. He takes a blood pressure pill twice a day. 3. He takes 46 units of Lantus in the morning. 4. He takes NovoLog around 10 mg subcu t.i.d. based on the sliding scale, sometimes it is 15 at dinner time. ALLERGIES: PEANUT, PEANUT OILS, SPINACH, STRAWBERRY, BACTRIM. FAMILY HISTORY: Mother from ALS. Father from dementia. SOCIAL HISTORY: The patient states he is homeless. He is living with his sister currently. He quit smoking 10 years ago, smoking a pack per day for 30 years. No alcohol use. His healthcare proxy is his best friend, Rolando. REVIEW OF SYSTEMS: A 14-point review of systems as mentioned in the HPI, otherwise negative. PHYSICAL EXAMINATION GENERAL: No acute distress, resting comfortably. VITAL SIGNS: Temp 97.2, pulse rate 77, respiratory rate 21, oxygen saturation 97 % on room air, blood pressure 149/80. HEENT: Head normocephalic. Pupils are equal and reactive. Anicteric. Oropharynx: Mucous membranes are moist. NECK: Supple. No lymphadenopathy. RESPIRATORY: Diminished breath sounds. No wheezes, rhonchi, or rales. CARDIAC: Regular rate and rhythm. Soft systolic murmur heard throughout. ABDOMEN: Morbidly obese. Soft, nontender, and nondistended. EXTREMITIES: Trace pretibial edema. He has a cast in his right lower extremity and partially amputated left foot. NEUROLOGIC: Alert and oriented x3. No gross focal neurologic deficits. DIAGNOSTIC STUDIES/LAB DATA: White count 5.3, hemoglobin 9.8, hematocrit 30, platelets 137. Venous blood gas: pH 7.24. Sodium 133, potassium 4.8, chloride 108, bicarb 18, BUN 76, creatinine 6.34, glucose 384, mag is 1.6. Trop is 0.01. BNP is 170. TSH is 1.89. Urine shows +3 protein, +1 blood, +3 glucose. Urine tox negative. Alcohol negative. Radiographic data: Chest x-ray shows normal sinus rhythm. Chest x-ray shows no active cardiopulmonary disease. ASSESSMENT AND PLAN: This is a 53-year-old male with a past medical history of diabetes and chronic kidney disease, who presents to the emergency room after having a presyncopal event. 1. Presyncope. Assessment: The patient has orthostatic hypotension in the emergency room. I suspect he had a vasovagal event after having a bowel movement and intravascularly dry. Plan: We will hold his Lasix for now. We will not give him any more fluids in the setting of his renal impairment and continue him on telemetry. He did have an echo done in June that showed diastolic dysfunction without any significant valvular abnormalities, did not think an echo is warranted. We will repeat his troponin to rule him out for any acute coronary syndrome, although given in the absence of chest pain and shortness of breath, unlikely. 2. Acute on chronic renal failure. Assessment: Concerning the elevation in his creatinine, it is possible this is progression of his nephropathy from the poorly controlled diabetes. It also could be that he has been over diuresed, thus causing the presyncope. Plan: We will renally dose his meds, repeat his renal function in the morning. We will hold his Lasix for now and recommend contacting Nephrology for getting the patient set up with likely imminent dialysis. We will also start him on Bicitra twice a day, renal diet, and nutrition consult for recommendations on his renal diet. CHRONIC MEDICAL PROBLEMS: Diabetes. We will check hemoglobin A1c. I suspect this is poorly controlled despite what he is saying. We will continue him on his Lantus and lispro. Consider Diabetes and Endocrine consult with Dr. Allison. Hypertension. We will start him on labetalol for now. He needs to get the med rec done. Neuropathy. Continue gabapentin at a low dose. We need to get med rec and order his medications accordingly, renally dosed. FEN: Renal diet. DVT prophylaxis: The patient scores moderate risk. We will place him on heparin subcu t.i.d. Code status: Full code. PATIENT TIME: Greater than 50 minutes was spent doing the history and physical , more than half the time spent in direct patient contact. [id number]/CPS #: [id number] MTDD
[2018-09-06] MEDS: Heparin VIAL(*) 5000 UNITS/ML VIAL (FIVE THOUSAND) SUBCUT SCH ×3 (05:43→21:29)
[2018-09-06 06:59] LABS: EGFR Non-African American 9.6 (>60)
[2018-09-06 07:08] LABS: ABS Basophils 0 10^3/ul (0-0.2); ABS Eosinophils 0.1 10^3/ul (0-0.6); ABS Lymphocytes 1.3 10^3/ul (1.0-4.8); ABS Monocytes 0.5 10^3/ul (0-0.8); ABS Neutrophils 2.9 10^3/ul (1.5-7.7); ABS Nucleated RBC 0 10^3/ul; Eosinophil % 2.8 %; Hematocrit 26 % (42-52); Hemoglobin 8.6 g/dl (14.0-18.0); Mean Corpuscular HGB Conc 33 g/dl (31-36); Mean Corpuscular Hemoglobin 28 pg (27-31); Mean Corpuscular Volume 85 fL (80-94); Mean Platelet Volume 7.8 fL (7.4-10.4); Nucleated Red Blood Cells % 0.1; Platelet Count 120 10^3/ul (150-450); Red Cell Distribution Width 16 % (10.5-15); White Blood Count 4.9 10^3/ul (3.5-10.8)
[2018-09-06] MEDS ORDERED: Gabapentin CAP(*) 100 MG PO SCH (09:00)
[2018-09-06] MEDS: Insulin LISPRO* 1 UNITS UNIT SUBCUT SCH ×6 (10:19→18:25)
[2018-09-06] MEDS: Insulin GLARGINE(*) 1 UNITS UNIT SUBCUT SCH (10:22)
--- NOTE | 2018-09-06 16:11 | PN ---
Subjective Date of Service: 09/06/18 Interval History: Mr. Galo is feeling good this morning. He denies any pain. RLE cast is comfortable. He has not had any further episodes of dizziness or near syncope. He only remembers some of the events from yesterday. He reports that he was scheduled to f/u with Dr. Ramirez as an outpt, but needed to cancel his appointment and has not been able to reschedule because he recently moved out of his apartment. He reports that he had a BM with some blood after arriving in the hospital, though nursing documentation does not support this and he is a questionable historian. He denies CP, SOB, N/V/D. Family History: Unchanged from Admission Social History: Unchanged from Admission Past Medical History: Unchanged from Admission Objective Active Medications: Acetaminophen (Tylenol Tab*) 650 mg PO Q4H PRN FEVER/PAIN Al Hydrox/Mg Hydrox/Simethicone (Maalox Plus*) 30 ml PO Q6H PRN INDIGESTION Citric Acid/Sodium Citrate (Bicitra*) 15 ml PO QID JOSE ENRIQUE Dextrose (D50w Syringe 50 Ml*) 12.5 gm IV PUSH .FOR FS < 60 - SS PRN FS < 60 Gabapentin (Neurontin Cap(*)) 100 mg PO BID JOSE ENRIQUE Heparin Sodium (Porcine) (Heparin Vial(*)) 5,000 units SUBCUT Q8HR JOSE ENRIQUE Sodium Bicarbonate 75 meq/ (Sodium Chloride) 1,075 mls @ 75 mls/hr IV .PER RATE [facility] Insulin Glargine (Lantus(*)) 46 units SUBCUT Q24H JOSE ENRIQUE Insulin Human Lispro (Humalog*) 0 units SUBCUT AC JOSE ENRIQUE; Protocol Insulin Human Lispro (Humalog*) 0 units SUBCUT AC JOSE ENRIQUE; Protocol Labetalol HCl (Trandate Tab*) 100 mg PO BID JOSE ENRIQUE Ondansetron HCl (Zofran Inj*) 4 mg IV Q4H PRN NAUSEA/VOMITING Vital Signs - 8 hr 09/06/18 09/06/18 09/06/18 09:55 10:14 11:34 Temperature 98.4 F Pulse Rate 75 72 Respiratory 12 18 Rate Blood Pressure 121/68 132/73 (mmHg) O2 Sat by Pulse 98 Oximetry Oxygen Devices in Use Now: None Appearance: Middle-aged male sitting in bed in NAD Eyes: No Scleral Icterus Ears/Nose/Mouth/Throat: Mucous Membranes Moist Neck: NL Appearance and Movements; NL JVP, Trachea Midline Respiratory: Symmetrical Chest Expansion and Respiratory Effort, Clear to Auscultation Cardiovascular: NL Sounds; No Murmurs; No JVD, RRR Abdominal: NL Sounds; No Tenderness; No Distention Extremities: No Edema, No Clubbing, Cyanosis Skin: - - RLE plaster cast Neurological: Alert and Oriented x 3, NL Sensation Lines/Tubes/Other Access: Clean, Dry and Intact Peripheral IV Nutrition: Taking PO's Result Diagrams: 09/06/18 07:03 09/06/18 06:31 Assess/Plan/Problems-Billing Assessment: Mr. Galo is a 53 yo with PMH of DM2, CKD stage 5, CHF, chronic LE ulcers, COPD , and anemia of chronic disease who was sent to the ED by orthopedics for near syncope after having a plaster cast placed and was found to be orthostatic and had acute on chronic kidney injury. - Patient Problems (1) Acute renal failure superimposed on stage 5 chronic kidney disease, not on chronic dialysis Current Visit: Yes Status: Acute Code(s): N17.9 - ACUTE KIDNEY FAILURE, UNSPECIFIED; N18.5 - CHRONIC KIDNEY DISEASE, STAGE 5 SNOMED Code(s): 457274196 Comment: - 2/2 hypovolemia and duiretic use - Baseline creatinine around 4-5, now >6 - Has seen James during a previous admission, but did not f/u as an outpt as recommended; consider nephrology consult if not improving with fluids - IVF w/ caution because of CHF (2) Metabolic acidosis Current Visit: No Status: Acute Code(s): E87.2 - ACIDOSIS SNOMED Code(s): 43013073 Comment: - CO2 down to 13 this morning - Continue bicitra - Start bicarb drip (3) Pre-syncope Current Visit: No Status: Acute Comment: - 2/2 orthostatic hypotension d/t hypovolemia and vasovagal response - Telemetry unremarkable, troponins negative, EKGs show no ischemic changes (4) Anemia of chronic disease Current Visit: No Status: Chronic Code(s): D63.8 - ANEMIA IN OTHER CHRONIC DISEASES CLASSIFIED ELSEWHERE SNOMED Code(s): 726999490 Comment: - 2/2 CKD; will recheck erythropoietin as it has not been checked since 2017 and renal function has worsened since then - Relatively stable; baseline difficult to determine, but appears to be 8-9 - Check stool occult for possible rectal bleeding, though this is probably unlikely d/t stable H&H (5) Diabetes mellitus, type 2 Current Visit: Yes Status: Acute Comment: - A1C 9.9%; likely noncompliance - Continue lantus, lispro SS, and carb coverage (6) Chronic diastolic (congestive) heart failure Current Visit: No Status: Acute Code(s): I50.32 - CHRONIC DIASTOLIC ( CONGESTIVE) HEART FAILURE SNOMED Code(s): 401588968 Comment: - EF improved on recent echo 60-65% in 06/2018 - Hold lasix d/t DIONTE and hypovolemia; will likely need to cut back on home lasix dosing - IVF with caution (7) Hypertension Current Visit: No Status: Chronic Code(s): I10 - ESSENTIAL (PRIMARY) HYPERTENSION SNOMED Code(s): 11536694 Comment: - Normotensive - Continue labetalol (8) COPD (chronic obstructive pulmonary disease) Current Visit: No Status: Chronic Code(s): J44.9 - CHRONIC OBSTRUCTIVE PULMONARY DISEASE, UNSPECIFIED SNOMED Code(s): 97609505 Comment: - Not in exacerbation - Continue inhalers and supportive care (9) Morbid obesity Current Visit: No Status: Chronic Code(s): E66.01 - MORBID (SEVERE) OBESITY DUE TO EXCESS CALORIES SNOMED Code(s): 261063686 Comment: - BMI 42 - Supportive care (10) DVT prophylaxis Current Visit: No Status: Acute Code(s): YVW6112 - SNOMED Code(s): 762557014 Comment: - Heparin SQ (11) Full code status Current Visit: No Status: Acute Code(s): Z78.9 - OTHER SPECIFIED HEALTH STATUS SNOMED Code(s): 154821673 Status and Disposition: Inpatient for DIONTE and acidosis. Anticipate d/c home when medically stable. Attending: Beth Tobias
[2018-09-06] MEDS: Sodium Bicarbonate 8.4% IV* 75 MEQ in NS 0.45% 1000 ML BAG* 1,000 ML IV SCH (17:37)
[2018-09-06] MEDS ORDERED: Gabapentin CAP(*) 300 MG ONE (18:03)
[2018-09-06] MEDS: Gabapentin CAP(*) 300 MG PO SCH ×2 (18:04→21:28)
[2018-09-06] MEDS ORDERED: PROCHLORPERAZINE INJ 5 MG/ML 2 ML VIAL IV PRN (18:21)
[2018-09-06] MEDS ORDERED: Insulin LISPRO* 1 UNITS UNIT SUBCUT ONE ×2 (18:25→21:10)
[2018-09-06] MEDS ORDERED: NS 0.9% 1000 ML* 1,000 ML IV ONE (18:54)
[2018-09-06 20:29] LABS: EGFR Non-African American 9.7 (>60)
[2018-09-06] MEDS ORDERED: Dextrose 50% Syringe 50 ML* 25 GM/50 ML SYRINGE IV PUSH PRN (21:10)
[2018-09-07] MEDS: Sodium Bicarbonate 8.4% IV* 75 MEQ in NS 0.45% 1000 ML BAG* 1,000 ML IV SCH ×2 (05:33→17:25)
[2018-09-07] MEDS: Heparin VIAL(*) 5000 UNITS/ML VIAL (FIVE THOUSAND) SUBCUT SCH ×3 (05:33→21:35)
[2018-09-07 08:41] LABS: ABS Basophils 0 10^3/ul (0-0.2); ABS Eosinophils 0.1 10^3/ul (0-0.6); ABS Lymphocytes 0.6 10^3/ul (1.0-4.8); ABS Monocytes 0.4 10^3/ul (0-0.8); ABS Neutrophils 2.7 10^3/ul (1.5-7.7); ABS Nucleated RBC 0 10^3/ul; Hematocrit 25 % (42-52); Hemoglobin 8.3 g/dl (14.0-18.0); Lymphocyte % 16.5 %; Mean Corpuscular HGB Conc 33 g/dl (31-36); Mean Corpuscular Hemoglobin 28 pg (27-31); Mean Corpuscular Volume 85 fL (80-94); Mean Platelet Volume 8.4 fL (7.4-10.4); Nucleated Red Blood Cells % 0; Platelet Count 111 10^3/ul (150-450); Red Blood Count 2.96 10^6/ul (4.00-5.40); Red Cell Distribution Width 17 % (10.5-15); White Blood Count 3.9 10^3/ul (3.5-10.8)
[2018-09-07 09:02] LABS: EGFR Non-African American 10.2 (>60)
[2018-09-07] MEDS: Gabapentin CAP(*) 300 MG PO SCH ×3 (09:11→20:31)
[2018-09-07] MEDS: Labetalol TAB* 100 MG PO SCH ×2 (09:11→20:31)
[2018-09-07] MEDS: Insulin LISPRO* 1 UNITS UNIT SUBCUT SCH ×6 (09:12→17:26)
[2018-09-07] MEDS: Sodium Citrate/Citric Acid* 15 ML UDC PO SCH ×4 (09:12→20:34)
[2018-09-07] MEDS: Insulin GLARGINE(*) 1 UNITS UNIT SUBCUT SCH (09:12)
--- NOTE | 2018-09-07 16:41 | PN ---
Subjective Date of Service: 09/07/18 Interval History: Ms. Galo reports that he is feeling well and denies any complaint. He specifically denies chest pain, SOB, nausea, or abdominal pain. Family History: Unchanged from Admission Social History: Unchanged from Admission Past Medical History: Unchanged from Admission Objective Active Medications: Acetaminophen (Tylenol Tab*) 650 mg PO Q4H PRN Al Hydrox/Mg Hydrox/Simethicone (Maalox Plus*) 30 ml PO Q6H PRN Citric Acid/Sodium Citrate (Bicitra*) 15 ml PO QID JOSE ENRIQUE Dextrose (D50w Syringe 50 Ml*) 12.5 gm IV PUSH .FOR FS < 60 - SS PRN Gabapentin (Neurontin Cap(*)) 300 mg PO TID JOSE ENRIQUE Heparin Sodium (Porcine) (Heparin Vial(*)) 5,000 units SUBCUT Q8HR JOSE ENRIQUE Sodium Bicarbonate 75 meq/ (Sodium Chloride) 1,075 mls @ 75 mls/hr IV Q12H JOSE ENRIQUE Insulin Glargine (Lantus(*)) 46 units SUBCUT Q24H JOSE ENRIQUE Insulin Human Lispro (Humalog*) 0 units SUBCUT AC JOSE ENRIQUE; Protocol Insulin Human Lispro (Humalog*) 0 units SUBCUT AC JOSE ENRIQUE; Protocol Labetalol HCl (Trandate Tab*) 100 mg PO BID JOSE ENRIQUE Ondansetron HCl (Zofran Inj*) 4 mg IV Q4H PRN Prochlorperazine Edisylate (Compazine Inj*) 5 mg IV Q6H PRN Vital Signs: Temp Pulse Resp BP Pulse Ox 98.0 F 81 16 149/70 96 09/07/18 15:14 09/07/18 15:14 09/07/18 15:36 09/07/18 15:14 09/07/18 15:14 Oxygen Devices in Use Now: None Appearance: Male sitting up in bed in NAD Eyes: No Scleral Icterus Ears/Nose/Mouth/Throat: Mucous Membranes Moist Neck: Trachea Midline Respiratory: Symmetrical Chest Expansion and Respiratory Effort, Clear to Auscultation Cardiovascular: NL Sounds; No Murmurs; No JVD, No Edema Extremities: - - Bilateral TMA Skin: No Rash or Ulcers Neurological: Alert and Oriented x 3, NL Muscle Strength and Tone Nutrition: Taking PO's Result Diagrams: 09/07/18 08:13 09/07/18 08:13 Additional Lab and Data: . Microbiology and Other Data: . Assess/Plan/Problems-Billing Assessment: Mr. Galo is a 53 yo with PMH of DM2, CKD stage 5, CHF, chronic LE ulcers, COPD , and anemia of chronic disease who was sent to the ED by orthopedics for near syncope after having a plaster cast placed and was found to be orthostatic and had acute on chronic kidney injury. - Patient Problems (1) Acute renal failure superimposed on stage 5 chronic kidney disease, not on chronic dialysis Comment: - Slight improvement, euvolemic, electrolytes normal. - 2/2 hypovolemia and duiretic use - Baseline creatinine around 4-5 - Has seen James during a previous admission, but did not f/u as an outpt as recommended; consider nephrology consult if not improving with fluids - IVF w/ caution because of CHF (2) Pre-syncope Comment: - 2/2 orthostatic hypotension d/t hypovolemia and vasovagal response - Telemetry unremarkable, troponins negative, EKGs show no ischemic changes (3) Metabolic acidosis Comment: - Improved - Secondary to renal failure - Continue bicitra - Start bicarb drip (4) Chronic diastolic (congestive) heart failure Comment: - EF improved on recent echo 60-65% in 06/2018 - Hold lasix d/t DIONTE and hypovolemia; will likely need to cut back on home lasix dosing - IVF with caution (5) Diabetes mellitus, type 2 Comment: - BGs 200s this AM - A1C 9.9%; likely noncompliance - Increase lantus, lispro SS, and carb coverage (6) COPD (chronic obstructive pulmonary disease) Comment: - Not in exacerbation - Continue inhalers and supportive care (7) Hypertension Comment: - Normotensive - Continue labetalol (8) Anemia of chronic disease Comment: - 2/2 CKD; will recheck erythropoietin as it has not been checked since 2017 and renal function has worsened since then - Relatively stable; baseline difficult to determine, but appears to be 8-9 - Check stool occult for possible rectal bleeding, though this is probably unlikely d/t stable H&H (9) Morbid obesity Comment: - BMI 42 - Supportive care (10) DVT prophylaxis Comment: - Heparin SQ (11) Full code status Comment: Status and Disposition: Inpatient for DIONTE and acidosis. Anticipate d/c home when medically stable.
[2018-09-07] MEDS: Acetaminophen TAB* 325 MG PO PRN (22:13)
[2018-09-08] MEDS: Loperamide CAP* 2 MG PO PRN (03:22)
[2018-09-08] MEDS: Heparin VIAL(*) 5000 UNITS/ML VIAL (FIVE THOUSAND) SUBCUT SCH ×3 (05:05→21:54)
[2018-09-08 06:25] LABS: EGFR Non-African American 10.7 (>60)
[2018-09-08] MEDS: Sodium Bicarbonate 8.4% IV* 75 MEQ in NS 0.45% 1000 ML BAG* 1,000 ML IV SCH (08:11)
[2018-09-08] MEDS: Sodium Citrate/Citric Acid* 15 ML UDC PO SCH ×4 (08:46→20:41)
[2018-09-08] MEDS: Gabapentin CAP(*) 300 MG PO SCH ×3 (08:46→20:42)
--- NOTE | 2018-09-08 08:46 | PN ---
Subjective Date of Service: 09/08/18 Interval History: Mr. Galo states that he feels full of fluid today. He denies chest pain or SOB. He denies abdominal pain or nausea and is tolerating oral intake well. He is willing to remain in the hospital while we continue to adjust his treatments to optimize kidney function. Family History: Unchanged from Admission Social History: Unchanged from Admission Past Medical History: Unchanged from Admission Objective Active Medications: Acetaminophen (Tylenol Tab*) 650 mg PO Q4H PRN Al Hydrox/Mg Hydrox/Simethicone (Maalox Plus*) 30 ml PO Q6H PRN Citric Acid/Sodium Citrate (Bicitra*) 15 ml PO QID JOSE ENRIQUE Dextrose (D50w Syringe 50 Ml*) 12.5 gm IV PUSH .FOR FS < 60 - SS PRN Gabapentin (Neurontin Cap(*)) 300 mg PO TID JOSE ENRIQUE Heparin Sodium (Porcine) (Heparin Vial(*)) 5,000 units SUBCUT Q8HR JOSE ENRIQUE Sodium Bicarbonate 75 meq/ (Sodium Chloride) 1,075 mls @ 75 mls/hr IV Q12H JOSE ENRIQUE Insulin Glargine (Lantus(*)) 50 units SUBCUT QAM JOSE ENRIQUE Insulin Human Lispro (Humalog*) 0 units SUBCUT AC JOSE ENRIQUE; Protocol Insulin Human Lispro (Humalog*) 0 units SUBCUT AC JOSE ENRIQUE; Protocol Labetalol HCl (Trandate Tab*) 100 mg PO BID JOSE ENRIQUE Loperamide HCl (Imodium Cap*) 2 mg PO .SEE DIRECTIONS PRN Ondansetron HCl (Zofran Inj*) 4 mg IV Q4H PRN Prochlorperazine Edisylate (Compazine Inj*) 5 mg IV Q6H PRN Vital Signs: Temp Pulse Resp BP Pulse Ox 97.8 F 74 18 128/63 98 09/08/18 07:15 09/08/18 07:15 09/08/18 07:45 09/08/18 07:15 09/08/18 07:15 Oxygen Devices in Use Now: None Appearance: Male lying in bed in NAD Eyes: No Scleral Icterus Ears/Nose/Mouth/Throat: Mucous Membranes Moist Neck: Trachea Midline Respiratory: Symmetrical Chest Expansion and Respiratory Effort, Clear to Auscultation Cardiovascular: NL Sounds; No Murmurs; No JVD, No Edema Abdominal: - - distended, soft, nontender Extremities: No Edema, - - bilateral partial foot amputations Skin: No Rash or Ulcers Neurological: Alert and Oriented x 3, NL Muscle Strength and Tone Nutrition: Taking PO's Result Diagrams: 09/07/18 08:13 09/08/18 05:42 Additional Lab and Data: . Microbiology and Other Data: . Assess/Plan/Problems-Billing Assessment: Mr. Galo is a 53 yo with PMH of DM2, CKD stage 5, CHF, chronic LE ulcers, COPD , and anemia of chronic disease who was sent to the ED by orthopedics for near syncope after having a plaster cast placed and was found to be orthostatic and had acute on chronic kidney injury. - Patient Problems (1) Acute renal failure superimposed on stage 5 chronic kidney disease, not on chronic dialysis Comment: - Slight improvement, showing signs of fluid overload, electrolytes normal. - 2/2 hypovolemia and duiretic use - Baseline creatinine around 4-5. Has seen James during a previous admission, but did not f/u as an outpt as recommended; strongly recommended to follow with PCP or [facility] and Dr. Ramirez. - Stop IVF and sodium bicarb, continue bicitra. Resuming lasix now, monitor creatinine closely (2) Pre-syncope Comment: - 2/2 orthostatic hypotension d/t hypovolemia and vasovagal response - Telemetry unremarkable, troponins negative, EKGs show no ischemic changes (3) Metabolic acidosis Comment: - Improved - Secondary to renal failure - Continue bicitra. Stop bicarb drip. (4) Chronic diastolic (congestive) heart failure Comment: - EF improved on recent echo 60-65% in 06/2018 - Feels abdomen distended consistent with fluid overload, plan for 40mg po BID ( down from home 60mg BID) (5) Diabetes mellitus, type 2 Comment: - BGs remains 200s this AM - A1C 9.9%; likely noncompliance - Increase lantus again today, continue lispro SS and carb coverage (6) COPD (chronic obstructive pulmonary disease) Comment: - Not in exacerbation - Continue inhalers and supportive care (7) Hypertension Comment: - Normotensive - Continue labetalol (8) Anemia of chronic disease Comment: - 2/2 CKD; will recheck erythropoietin as it has not been checked since 2017 and renal function has worsened since then - Relatively stable; baseline difficult to determine, but appears to be 8-9 - Check stool occult for possible rectal bleeding, though this is probably unlikely d/t stable H&H (9) Morbid obesity Comment: - BMI 42 - Supportive care (10) DVT prophylaxis Comment: - Heparin SQ (11) Full code status Comment: Status and Disposition: Inpatient for DIONTE and acidosis. Anticipate d/c home when medically stable.
[2018-09-08] MEDS: Labetalol TAB* 100 MG PO SCH ×2 (08:47→20:42)
[2018-09-08] MEDS: Insulin LISPRO* 1 UNITS UNIT SUBCUT SCH ×6 (08:47→17:11)
[2018-09-08] MEDS ORDERED: Insulin GLARGINE(*) 1 UNITS UNIT SUBCUT SCH (09:00)
[2018-09-08] MEDS ORDERED: Furosemide TAB* 40 MG PO ONE (11:30)
[2018-09-08] MEDS: Furosemide TAB* 40 MG PO SCH (17:11)
[2018-09-09] MEDS: Loperamide CAP* 2 MG PO PRN ×2 (00:06→21:35)
[2018-09-09] MEDS: Heparin VIAL(*) 5000 UNITS/ML VIAL (FIVE THOUSAND) SUBCUT SCH ×3 (05:53→21:36)
[2018-09-09 06:37] LABS: EGFR Non-African American 11.3 (>60)
[2018-09-09] MEDS ORDERED: Insulin GLARGINE(*) 1 UNITS UNIT SUBCUT SCH (09:00)
[2018-09-09] MEDS: Gabapentin CAP(*) 300 MG PO SCH ×3 (09:03→21:35)
[2018-09-09] MEDS: Furosemide TAB* 40 MG PO SCH ×2 (09:03→17:48)
[2018-09-09] MEDS: Labetalol TAB* 100 MG PO SCH ×2 (09:03→21:36)
[2018-09-09] MEDS: Insulin LISPRO* 1 UNITS UNIT SUBCUT SCH ×6 (09:04→17:48)
[2018-09-09] MEDS: Sodium Citrate/Citric Acid* 15 ML UDC PO SCH ×4 (09:05→21:37)
--- NOTE | 2018-09-09 16:33 | PN ---
Subjective Date of Service: 09/09/18 Interval History: Patient seen and examined at bedside. Denies fever, chills, shortness of breath , chest discomfort, N/V. He reports diarrhea, he feels that this is secondary to the Bicitra. He reports that apple juice at home gives him diarrhea and [facility] staff have been mixing the Bicitra with apple juice or cranberry juice. He reports itching of his skin. He is also questioning why we was taken off Testosterone in the last 8-12 months. Weight up today per [facility] staff ~ 20 pounds , he doesn't feel like he has gained weight, he states he was ~ 400 lbs when he was at the doctor's office prior to admission. Tele: Sinus rhythm, rate 70-90's Family History: Unchanged from Admission Social History: Unchanged from Admission Past Medical History: Unchanged from Admission Objective Active Medications: Acetaminophen (Tylenol Tab*) 650 mg PO Q4H PRN Reason: FEVER/PAIN Al Hydrox/Mg Hydrox/Simethicone (Maalox Plus*) 30 ml PO Q6H PRN Reason: INDIGESTION Citric Acid/Sodium Citrate (Bicitra*) 15 ml PO QID JOSE ENRIQUE Dextrose (D50w Syringe 50 Ml*) 12.5 gm IV PUSH .FOR FS < 60 - SS PRN Reason: FS < 60 Furosemide (Lasix Tab*) 40 mg PO 0800,1700 JOSE ENRIQUE Gabapentin (Neurontin Cap(*)) 300 mg PO TID JOSE ENRIQUE Heparin Sodium (Porcine) (Heparin Vial(*)) 5,000 units SUBCUT Q8HR JOSE ENRIQUE Insulin Glargine (Lantus(*)) 55 units SUBCUT QAM JOSE ENRIQUE Insulin Human Lispro (Humalog*) 0 units SUBCUT AC JOSE ENRIQUE; Protocol Insulin Human Lispro (Humalog*) 0 units SUBCUT AC JOSE ENRIQUE; Protocol Labetalol HCl (Trandate Tab*) 100 mg PO BID JOSE ENRIQUE Loperamide HCl (Imodium Cap*) 2 mg PO .SEE DIRECTIONS PRN Reason: DIARRHEA Ondansetron HCl (Zofran Inj*) 4 mg IV Q4H PRN Reason: NAUSEA/VOMITING Prochlorperazine Edisylate (Compazine Inj*) 5 mg IV Q6H PRN Reason: NAUSEA/ VOMITING Vital Signs - 8 hr 09/09/18 09/09/18 09/09/18 09:03 09:10 11:46 Temperature 98.9 F Pulse Rate 76 Respiratory 18 16 Rate Blood Pressure 156/91 (mmHg) O2 Sat by Pulse 95 98 Oximetry 09/09/18 09/09/18 12:37 13:12 Temperature Pulse Rate Respiratory 16 16 Rate Blood Pressure (mmHg) O2 Sat by Pulse Oximetry Oxygen Devices in Use Now: None Appearance: NAD, sitting up on the side of the bed Ears/Nose/Mouth/Throat: Mucous Membranes Moist Respiratory: Symmetrical Chest Expansion and Respiratory Effort, Clear to Auscultation Cardiovascular: NL Sounds; No Murmurs; No JVD, RRR Abdominal: NL Sounds; No Tenderness; No Distention Extremities: No Edema Skin: No Rash or Ulcers Neurological: Alert and Oriented x 3, NL Muscle Strength and Tone Lines/Tubes/Other Access: Clean, Dry and Intact Peripheral IV - x2, site benign Nutrition: Taking PO's Result Diagrams: 09/07/18 08:13 09/09/18 06:00 Additional Lab and Data: . Microbiology and Other Data: . Assess/Plan/Problems-Billing Assessment: Mr. Galo is a 53 yo with PMH significant for DM2, CKD stage 5, CHF, chronic LE ulcers, COPD, and anemia of chronic disease who was sent to the ED by orthopedics for near syncope after having a plaster cast placed and was found to be orthostatic and had acute on chronic kidney injury. - Patient Problems (1) Acute renal failure superimposed on stage 5 chronic kidney disease, not on chronic dialysis Code(s): N17.9 - ACUTE KIDNEY FAILURE, UNSPECIFIED; N18.5 - CHRONIC KIDNEY DISEASE, STAGE 5 SNOMED Code(s): 003401980 Comment: - Slow improvement, continues to show signs of fluid overload, electrolytes normal - 2/2 hypovolemia and duiretic use - Baseline creatinine around 4-5. Has seen James during a previous admission, but did not f/u as an outpt as recommended; strongly recommended to follow with PCP or [facility] and Dr. Ramirez - Continue lasix, monitor creatinine closely - Will discuss case ith Dr. Ramirez in the AM (2) Pre-syncope Comment: - 2/2 orthostatic hypotension d/t hypovolemia and vasovagal response - Telemetry unremarkable, troponins negative, EKGs show no ischemic changes (3) Metabolic acidosis Code(s): E87.2 - ACIDOSIS SNOMED Code(s): 97055182 Comment: - Improving - Secondary to renal failure - Will decrease bicitra from QID to BID as it has caused diarrhea (4) Chronic diastolic (congestive) heart failure Code(s): I50.32 - CHRONIC DIASTOLIC (CONGESTIVE) HEART FAILURE SNOMED Code(s) : 779966982 Comment: - EF improved on recent echo 60-65% in 06/2018 - Feels abdomen distended consistent with fluid overload - Continue Lasix 40mg po BID (down from home 60mg BID) - Strict I+Os and daily weights (5) Diabetes mellitus, type 2 Comment: - BGs remains 210-290s this AM - HgA1C 9.9%; likely due to noncompliance - Continue lantus (will increase again today) - Continue lispro SS and carb coverage (6) COPD (chronic obstructive pulmonary disease) Code(s): J44.9 - CHRONIC OBSTRUCTIVE PULMONARY DISEASE, UNSPECIFIED SNOMED Code(s): 47841965 Comment: - No sign of exacerbation - Continue supportive care (7) Anemia of chronic disease Code(s): D63.8 - ANEMIA IN OTHER CHRONIC DISEASES CLASSIFIED ELSEWHERE SNOMED Code(s): 087406127 Comment: - 2/2 CKD - Relatively stable; baseline difficult to determine, but appears to be 8-9 - Stool occult negative (8) Hypertension Code(s): I10 - ESSENTIAL (PRIMARY) HYPERTENSION SNOMED Code(s): 02325445 Comment: - Mostly normotensive, SBP 120-180's - Continue labetalol (9) Morbid obesity Code(s): E66.01 - MORBID (SEVERE) OBESITY DUE TO EXCESS CALORIES SNOMED Code(s ): 951751969 Comment: - BMI ~ 44 - Encouraged weight loss (10) DVT prophylaxis Code(s): APF7211 - SNOMED Code(s): 484068699 Comment: - Heparin SQ (11) Full code status Code(s): Z78.9 - OTHER SPECIFIED HEALTH STATUS SNOMED Code(s): 992016526 Status and Disposition: Inpatient for DIONTE and acidosis. Anticipate d/c home when medically stable. Attending: Toma Lynne
[2018-09-10] MEDS: Heparin VIAL(*) 5000 UNITS/ML VIAL (FIVE THOUSAND) SUBCUT SCH ×3 (06:35→21:35)
[2018-09-10] MEDS: Sodium Citrate/Citric Acid* 15 ML UDC PO SCH (08:49)
[2018-09-10] MEDS: Gabapentin CAP(*) 300 MG PO SCH ×3 (08:49→19:52)
[2018-09-10] MEDS: Insulin LISPRO* 1 UNITS UNIT SUBCUT SCH ×6 (08:50→17:31)
[2018-09-10] MEDS: Furosemide TAB* 40 MG PO SCH ×2 (08:50→17:30)
[2018-09-10] MEDS: Labetalol TAB* 100 MG PO SCH ×2 (08:51→19:54)
[2018-09-10] MEDS: Insulin GLARGINE(*) 1 UNITS UNIT SUBCUT SCH (08:51)
--- NOTE | 2018-09-10 11:45 | PN ---
Subjective Date of Service: 09/10/18 Interval History: Patient seen and examined at bedside. Denies fever, chills, shortness of breath , chest discomfort, N/V/D. Urinating without difficulty. Tele: Sinus rhythm, rate 70's Family History: Unchanged from Admission Social History: Unchanged from Admission Past Medical History: Unchanged from Admission Objective Active Medications: Acetaminophen (Tylenol Tab*) 650 mg PO Q4H PRN Reason: FEVER/PAIN Al Hydrox/Mg Hydrox/Simethicone (Maalox Plus*) 30 ml PO Q6H PRN Reason: INDIGESTION Citric Acid/Sodium Citrate (Bicitra*) 15 ml PO BID JOSE ENRIQUE Dextrose (D50w Syringe 50 Ml*) 12.5 gm IV PUSH .FOR FS < 60 - SS PRN Reason: FS < 60 Furosemide (Lasix Tab*) 40 mg PO 0800,1700 JOSE ENRIQUE Gabapentin (Neurontin Cap(*)) 300 mg PO TID JOSE ENRIQUE Heparin Sodium (Porcine) (Heparin Vial(*)) 5,000 units SUBCUT Q8HR JOSE ENRIQUE Insulin Glargine (Lantus(*)) 60 units SUBCUT QAM JOSE ENRIQUE Insulin Human Lispro (Humalog*) 0 units SUBCUT AC JOSE ENRIQUE; Protocol Insulin Human Lispro (Humalog*) 0 units SUBCUT AC JOSE ENRIQUE; Protocol Labetalol HCl (Trandate Tab*) 100 mg PO BID OJSE ENRIQUE Loperamide HCl (Imodium Cap*) 2 mg PO .SEE DIRECTIONS PRN Reason: DIARRHEA Ondansetron HCl (Zofran Inj*) 4 mg IV Q4H PRN Reason: NAUSEA/VOMITING Prochlorperazine Edisylate (Compazine Inj*) 5 mg IV Q6H PRN Reason: NAUSEA/ VOMITING Vital Signs - 8 hr 09/10/18 09/10/18 09/10/18 03:42 05:02 05:03 Temperature 97.9 F Pulse Rate 72 Respiratory 20 18 18 Rate Blood Pressure 138/75 (mmHg) O2 Sat by Pulse 97 Oximetry 09/10/18 09/10/18 09/10/18 07:37 08:00 08:49 Temperature 97.9 F Pulse Rate 71 Respiratory 19 20 20 Rate Blood Pressure 153/90 (mmHg) O2 Sat by Pulse 98 Oximetry Oxygen Devices in Use Now: None Appearance: NAD, laying in bed Ears/Nose/Mouth/Throat: Mucous Membranes Moist Respiratory: Symmetrical Chest Expansion and Respiratory Effort, Clear to Auscultation Cardiovascular: NL Sounds; No Murmurs; No JVD, RRR Extremities: No Edema Skin: No Rash or Ulcers Neurological: Alert and Oriented x 3, NL Muscle Strength and Tone Lines/Tubes/Other Access: Clean, Dry and Intact Peripheral IV - x 2, site benign Nutrition: Taking PO's Result Diagrams: 09/07/18 08:13 09/09/18 06:00 Additional Lab and Data: . Microbiology and Other Data: . Assess/Plan/Problems-Billing Assessment: Mr. Galo is a 53 yo with PMH significant for DM2, CKD stage 5, CHF, chronic LE ulcers, COPD, and anemia of chronic disease who was sent to the ED by orthopedics for near syncope after having a plaster cast placed and was found to be orthostatic and had acute on chronic kidney injury. - Patient Problems (1) Acute renal failure superimposed on stage 5 chronic kidney disease, not on chronic dialysis Code(s): N17.9 - ACUTE KIDNEY FAILURE, UNSPECIFIED; N18.5 - CHRONIC KIDNEY DISEASE, STAGE 5 SNOMED Code(s): 863497968 Comment: - Slow improvement, continues to show signs of fluid overload, electrolytes normal - 2/2 hypovolemia and duiretic use - Baseline creatinine around 4-5. Has seen aJmes during a previous admission, but did not f/u as an outpt as recommended; strongly recommended to follow with PCP or [facility] and Dr. Ramirez - Continue lasix, monitor creatinine closely - Nephrology consult, pending (2) Pre-syncope Comment: - 2/2 orthostatic hypotension d/t hypovolemia and vasovagal response - Telemetry unremarkable, troponins negative, EKGs show no ischemic changes (3) Metabolic acidosis Code(s): E87.2 - ACIDOSIS SNOMED Code(s): 60066039 Comment: - Improving - Secondary to renal failure - Continue bicitra BID (4) Chronic diastolic (congestive) heart failure Code(s): I50.32 - CHRONIC DIASTOLIC (CONGESTIVE) HEART FAILURE SNOMED Code(s) : 134469300 Comment: - EF improved on recent echo 60-65% in 06/2018 - Feels abdomen distended consistent with fluid overload - Continue Lasix 40mg po BID (down from home 60mg BID) - Strict I+Os and daily weights (5) Diabetes mellitus, type 2 Comment: - BGs remains 190-220s this AM - HgA1C 9.9%; likely due to noncompliance - Continue lantus - Continue lispro SS and carb coverage (6) COPD (chronic obstructive pulmonary disease) Code(s): J44.9 - CHRONIC OBSTRUCTIVE PULMONARY DISEASE, UNSPECIFIED SNOMED Code(s): 31440296 Comment: - No sign of exacerbation - Continue supportive care (7) Anemia of chronic disease Code(s): D63.8 - ANEMIA IN OTHER CHRONIC DISEASES CLASSIFIED ELSEWHERE SNOMED Code(s): 209195520 Comment: - 2/2 CKD - Relatively stable; baseline difficult to determine, but appears to be 8-9 - Stool occult negative (8) Hypertension Code(s): I10 - ESSENTIAL (PRIMARY) HYPERTENSION SNOMED Code(s): 25260659 Comment: - Mostly normotensive, SBP 130-170's - Continue labetalol (increase to 200 mg BID) (9) Morbid obesity Code(s): E66.01 - MORBID (SEVERE) OBESITY DUE TO EXCESS CALORIES SNOMED Code(s ): 136021047 Comment: - BMI ~ 44 - Encouraged weight loss (10) DVT prophylaxis Code(s): UBM1055 - SNOMED Code(s): 986217197 Comment: - Heparin SQ (11) Full code status Code(s): Z78.9 - OTHER SPECIFIED HEALTH STATUS SNOMED Code(s): 322108449 Status and Disposition: Inpatient for DIONTE and acidosis. Anticipate d/c home when medically stable. Attending: Bairon Mixon
[2018-09-10] MEDS: Acetaminophen TAB* 325 MG PO PRN (15:31)
[2018-09-10] MEDS ORDERED: Acetaminophen TAB* 325 MG PO PRN (19:22)
[2018-09-10] MEDS: Sodium Bicarbonate (ANTACID)* 650 MG TAB PO SCH (19:52)
--- NOTE | 2018-09-10 20:51 | CONS ---
CONSULTATION REPORT: DATE OF CONSULT: 09/10/18 REQUESTING PROVIDER: Nancy Weber NP/Hospitalist service. CHIEF COMPLAINT: Presyncope/acute on chronic renal failure. HISTORY OF PRESENT ILLNESS: A 53-year-old male with past medical history of insulin-dependent type 2 diabetes, multiple diabetic complications including bilateral foot amputation, uncontrolled hypertension, and obesity came into the hospital for evaluation of presyncope. The patient has a history of chronic kidney disease, stage 5, and baseline creatinine has been recently in the high 4s to high 5 range with some fluctuation. The patient was seen by Dr. Ramirez during his last hospitalization and was going to follow up as an outpatient with his office, but could not make his appointment. The patient also has uncontrolled diabetes with blood sugars widely variable and high in the 400s in the hospital. The patient came in because he went to see his orthopedic surgeon in [place], was feeling dizzy and lightheaded, went to the emergency room in [place] as he did not want to be seen at [place]. The patient also was previously on diuretics, then stopped taking diuretics, and prior to hospitalization was on Lasix 60 mg b.i.d. When the patient came to the ER, the patient's creatinine was noted to be 6.34, glucose was noted to be 384, and bicarb was noted to be 18. The patient's U-tox was noted to be negative. The patient was managed by the hospitalist service and his Lasix was initially held as hypovolemia was suspected in the setting of presyncope and DIONTE on advanced chronic kidney disease. The patient has now been started on Lasix 40 mg p.o. b.i.d. which he has been tolerating. The patient was also started on Bicitra for metabolic acidosis by the hospitalist team. Currently, bicarb improved at 21 and the patient's creatinine improved at 5.38. The patient also noted to have no asterixis or uremic symptoms at present time and potassium within normal range. PAST MEDICAL HISTORY: 1. Nonhealing chronic wound at the right foot with cast placed on 09/05/18 by Orthopedic Surgery. 2. 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 3. Cataracts. 4. Diabetes, on insulin, complicated by neuropathy and nephropathy. 5. COPD. 6. CHF with preserved ejection fraction. 7. CKD, stage 5. 8. Anemia of chronic disease. 9. Anxiety. MEDICATIONS: The patient's current medication list includes: 1. Tylenol. 2. Maalox. 3. Furosemide 40 mg p.o. b.i.d. 4. Gabapentin 300 p.o. t.i.d. 5. Heparin. 6. Insulin glargine 60 units q.a.m. 7. Lispro insulin sliding scale. 8. Zofran. 9. Labetalol 100 mg p.o. b.i.d. 10. Prochlorperazine p.r.n. for nausea. 11. Zofran p.r.n. for his nausea. 12. Bicitra 15 mL p.o. b.i.d. FAMILY HISTORY: Mother from ALS. Father from dementia. SOCIAL HISTORY: The patient reports that he quit smoking. Does not drink alcohol excessively. The patient reports that he has avoided drinking all carbonated beverages. The patient reports that he lost more than 100 pounds many years ago and regained it when he stopped smoking. Currently lives with his sister. REVIEW OF SYSTEMS: The patient currently reports feeling well. No nausea, no vomiting, no episodes of dizziness. This is improved since his hospital stay. Other 14-point review of systems other than that mentioned in the HPI is noted to be negative. PHYSICAL EXAM: General: No acute distress. Vitals: Temperature 97.2, pulse 72, respiratory rate 20, oxygen saturation 97% on room air, blood pressure fluctuating between 140s to 170s. HEENT: NC/AT. Heart: S1, S2 present. Regular at the time of exam. Soft systolic murmur heard. Respiratory: Decreased breath sounds bilaterally. No wheezes or rhonchi. Abdomen: Morbidly obese, soft, nontender, nondistended. No rebound, no guarding. Extremities: Noted to have trace pedal edema. Cast in the right lower extremity and partially amputated left foot. Neurologic: Alert and oriented x3. No neurologic deficits. Gait not tested. No asterixis noted on exam. LABORATORY DATA: WBC 3.9, hemoglobin 8.3, hematocrit 25, platelets noted to be 111. Sodium 133, potassium 4.8, chloride 105, CO2 21, BUN 71, creatinine 5.38 yesterday, glucose noted to be 271. ASSESSMENT AND PLAN: A 53-year-old male with history of advanced chronic kidney disease, diabetes, and hypertension, here with acute kidney injury on chronic kidney disease. 1. Acute kidney injury on underlying chronic kidney disease, stage 5. The patient does not have any emergent indications for dialysis today; however, the patient is very close to initiation of dialysis possibly even within a month. Currently, the patient's kidney function is improved with lowering the dose of his diuretics in light of his presyncopal episode. The patient is currently tolerating 40 mg b.i.d. of Lasix, which can be continued. Discussed poor prognosis in detail with the patient and strongly encouraged weight loss and management of his diabetes and hypertension to improve his kidney function. Dialysis also discussed with the patient briefly and also discussed referral to transplant center and very close followup with Nephrology as the patient may need dialysis very soon in the upcoming months or weeks based on his progress. In light of this, the patient is to follow up with the Nephrology office within a couple of weeks to have everything set up. The patient understands this and is willing to follow up. Also discussed weight loss and prognosis with respect to his diabetes and kidney disease in detail with the patient. 2. Metabolic acidosis secondary to advanced kidney disease. The patient does not want to take Bicitra because of the taste and also reports that he is unable to get this at the local pharmacy. In light of this, I recommend switching to sodium bicarbonate, can start at 650 mg p.o. b.i.d. and can increase sodium bicarbonate further based on his bicarb levels as an outpatient. We will also check PTH, iron studies, phosphorus, and complete CKD panel as an outpatient. 3. Bone mineral disease and electrolytes. Continue his phos binder, PhosLo, at this time. 4. Hypertension. The patient currently on labetalol 100 mg p.o. b.i.d. and Lasix 40 mg p.o. b.i.d. If blood pressure continues to be elevated in the 170s , if his heart rate increases, recommend increasing labetalol to 200 mg p.o. b.i.d. and continuation of his diuretics. His diuretics can also be uptitrated based on how he tolerates it. We will also set up the patient for modalities discussion as an outpatient. 5. Anemia. We will need to repeat iron studies and CBC as an outpatient and if low, can consider initiation of Epogen and iron supplementation as appropriate. Thank you for providing me an opportunity to consult on the patient. [id number]/[facility] #: [id number] KEDAR
[2018-09-10] MEDS: Acetaminophen TAB* 325 MG PO SCH (20:53)
[2018-09-11] MEDS ORDERED: traMADol TAB* 50 MG PO ONE (01:30)
[2018-09-11] MEDS: Heparin VIAL(*) 5000 UNITS/ML VIAL (FIVE THOUSAND) SUBCUT SCH ×2 (05:26→14:38)
[2018-09-11 07:41] LABS: EGFR Non-African American 11.7 (>60)
[2018-09-11] MEDS: Acetaminophen TAB* 325 MG PO SCH (07:47)
[2018-09-11] MEDS: Insulin GLARGINE(*) 1 UNITS UNIT SUBCUT SCH (07:47)
[2018-09-11] MEDS: Gabapentin CAP(*) 300 MG PO SCH ×2 (07:48→15:50)
[2018-09-11] MEDS: Furosemide TAB* 40 MG PO SCH (07:48)
[2018-09-11] MEDS: Sodium Bicarbonate (ANTACID)* 650 MG TAB PO SCH (07:48)
[2018-09-11] MEDS: Insulin LISPRO* 1 UNITS UNIT SUBCUT SCH ×4 (08:40→12:36)
[2018-09-11] MEDS ORDERED: Labetalol TAB* 100 MG PO SCH (09:00)
[2018-09-11 12:04] VITALS: BP 147/84
--- NOTE | 2018-09-11 14:21 | PN ---
Progress Note - Progress Note Date of Service: 09/11/18 Note: Time spent on discharge including exam of patient, discussion with patient, nurse, CM, review of EMR and preparation of discharge documents 45 minutes.
--- NOTE | 2018-09-11 21:09 | DS ---
CC: Dr. Siddhartha Morrison; Dr. Ramirez * DISCHARGE SUMMARY: DATE OF ADMISSION: DATE OF DISCHARGE: 09/11/18 HISTORY OF PRESENT ILLNESS: This 53-year-old man presented with presyncope. The history is detailed in the admission note. He was having office visit with an orthopedic surgeon in [place]. He was dizzy both before and after having a bowel movement. He looked rincon to the staff in the office and they started an IV on him and called the ambulance. The patient was thought possibly to be over diuresed. He had orthostatic hypotension in the emergency room and they have also had a vasovagal event. His furosemide dose was decreased. His renal function did steadily and slowly improve while here. His initial creatinine was 6.34. With each measurement, it was slightly less. At the day of discharge, it was 5.22. The patient felt better. He was noted to have bradycardia. His metoprolol was stopped. He was started on labetalol. He had no further bradycardia. He will follow up with Dr. Ramirez's office. FINAL DIAGNOSES: 1. Acute on chronic kidney disease. 2. Presyncope. 3. Metabolic acidosis. 4. Chronic diastolic congestive heart failure. 5. Diabetes. 6. Morbid obesity. 7. Chronic obstructive pulmonary disease. 8. Anemia of chronic disease. 9. Hypertension. DISCHARGE MEDICATIONS: 1. Furosemide 40 mg 8 a.m. and 5 p.m. daily. 2. Glargine insulin 60 units daily. 3. Labetalol 200 mg b.i.d. 4. Sodium bicarbonate 650 mg b.i.d. 5. Novolin R insulin 10 units t.i.d. 6. Simvastatin 20 mg daily. 7. Sertraline 50 mg daily. 8. Acetaminophen 650 mg every 4 hours p.r.n. 9. Calcium acetate 667 mg before meals. 10. Floranex tablet 2 daily. 11. topical t.i.d. 12. Gabapentin 300 mg t.i.d. 13. Ranitidine 150 mg once daily. CONDITION ON DISCHARGE: stable DISPOSITION ON DISCHARGE: discharge home [id number]/[facility] #: [id number] MTDD
== END 2018-09-11 15:48 | disposition home or self-care (01) | DRG 683 ==
LOC: ED 17:50 → MEDTELE 22:46
PROVIDERS: ADMIT Pediatrics; ATTEND Internal Medicine
DX: N17.9 Acute kidney failure, unspecified (principal); Z68.41 Body mass index [BMI] 40.0-44.9, adult; I13.2 Hypertensive heart and chronic kidney disease with heart failure and with stage 5 chronic kidney disease, or end stage renal disease; I50.32 Chronic diastolic (congestive) heart failure; E87.2 Acidosis; E11.22 Type 2 diabetes mellitus with diabetic chronic kidney disease; E11.42 Type 2 diabetes mellitus with diabetic polyneuropathy; E11.21 Type 2 diabetes mellitus with diabetic nephropathy; S81.801A Unspecified open wound, right lower leg, initial encounter; E66.01 Morbid (severe) obesity due to excess calories; E11.65 Type 2 diabetes mellitus with hyperglycemia; I95.1 Orthostatic hypotension; N18.5 Chronic kidney disease, stage 5; F41.9 Anxiety disorder, unspecified; J44.9 Chronic obstructive pulmonary disease, unspecified; D63.1 Anemia in chronic kidney disease; Z99.3 Dependence on wheelchair; Z89.432 Acquired absence of left foot; Z89.431 Acquired absence of right foot; Z79.84 Long term (current) use of oral hypoglycemic drugs; Z79.4 Long term (current) use of insulin; Z79.899 Other long term (current) drug therapy; Z91.010 Allergy to peanuts; Z88.8 Allergy status to other drugs, medicaments and biological substances; Z91.018 Allergy to other foods; Z80.6 Family history of leukemia; Z87.891 Personal history of nicotine dependence
CPT/HCPCS: 36415; 71045; 80048; 80053; 80307; 80320; 81003; 81015; 82272; 82570; 82668; 82728; 82803; 83036; 83540; 83550; 83605; 83735; 83880; 84300; 84443; 84484; 85025; 87086; 93005; 99283; A9270-GY; G0480; J0780; J1644; J1815; J2405; J3475

== ENCOUNTER 2018-09-30 19:45 | Inpatient (IN) | payer MEDICARE, MEDICAID ==
--- OUTSIDE RECORDS SUMMARY | 2018-09-30 20:16 | XMS REPORT | Continuity of Care Document ---
:1965 External Reference #:[id number] Author Name Nicolle Boyer Care Team Providers Name Role Phone Siddhartha Morrison D.O. Primary Care Physician Unavailable Payers Type Date Identification Numbers Payment Provider Subscriber Effective: Policy Number: [id number] Medicare Ammon Galo 2011 PayID: [id number] [address] [place] [address] Policy Number: [id number] Medicaid Ammon Galo PayID: [id number] [address] [place] [address] Advance Directives Description No Information Available Problems [...] Unknown smoker now occassionally Smoking Status Reviewed: 09/19/18 Patient is a former quit smoking and chews smoker now occassionally Exercise Does not exercise Type/Frequency Allergies, Adverse Reactions, Alerts Date Description Reaction Status Severity Comments 05/02/2013 Codeine Active 10/29/2015 Peanut Oil Active 12/01/2015 Strawberries Active Swelling tongue 12/01/2015 Chocolate Active Lips swelling 01/12/2016 Sulfamethoxazole/Trimethoprim Active rash Medications Medication Date Status Form Strength Qnty SIG Indications Ordering Provider Gabapentin 09/03 Active Capsules 300mg 60cap take one M86.671 [...] Basaglar Active Solution 100Unit/M Inject 64 Unknown Kwikpen Pen-Inject L Units Beneath The Skin Daily AT Bedtime Furosemide Active Tablets 40mg 1 by mouth Unknown bid Labetalol HCL Active Tablets 100mg take 2 Unknown / tablets by mouth twice a day Sodium Active Tablets 650mg take 1 tablet Unknown Bicarbonate by mouth twice a day Gabapentin 07/11 Hx Capsules 300mg 60cap take [...] by mouth s every day D. - Donnie, 01/26 M.D. Vancomycin HCL 12/02 Hx Solution 1500mg QS iv every 24 Rec hours through D. - advanced care [facility], 12/19 home infusion M.D. Ceftriaxone 12/02 Hx Solution 2gm iv every 24 Rec hours through [facility]fusion M.D. Bactrim DS 12/21 [...] hours x 42 D. - days through [facility], 12/14 Aci .D. Ciprofloxacin 11/03 Hx Tablets 750mg 84tab 1 by mouth s twice a day x D. - [facility] (start this .D. when you start IV antibiotic infusions) Lisinopril 00 Hx Tablets 10mg 30tab 1 po qd Unknown / s - 04/23 Amlodipine 00/ Hx Tablets 5mg 90tab 1 po qd [...] Older Vital Signs Date Vital Result Comment 09/19/2018 11:53am Height 75.75 inches 6'3.75" Weight 353.00 lb BP Systolic Sitting 126 mmHg R BP Diastolic Sitting 62 mmHg R Respiratory Rate 20 /min Pain Level 0 BMI (Body Mass Index) 43.2 kg/m2 09/05/2018 3:13pm Height 75.75 inches 6'3.75" Weight [...] Test Result H/L Range Note Wound 12/28/2017 [facility] Wound/Misc SEE RESULT 1 Culture/Sensi [address] [place] [address] Stain [phone] CBC Auto Diff 02/13/2017 [facility] White Blood 5.8 10^3/uL N 3.5-10.[address] Count [place], [place] [id number] [phone] Red Blood Count 3.77 10^6/uL Low 4.0-5.4 [...] % 0.1 N Comp Metabolic Panel 02/13/2017 [facility] Sodium 136 mmol/L N 133-[address] [place] [address] [phone] Potassium 4.7 mmol/L N 3.5-5.0 Chloride 105 [...] 36.5 N >60 3 Laboratory test 02/13/2017 [facility] C Reactive 15.84 mg/L High < 5.00 [address] [place] [address] [phone] CBC Auto Diff 02/06/2017 [facility] White Blood 5.9 N 3.5- 10.[address] Count 10^3/[place] [address] [phone] Red Blood Count 3.36 10^6/uL Low 4.0-5.4 [...] % 0.1 N Comp Metabolic Panel 02/06/2017 [facility] Sodium 137 mmol/L N 133-[address] [place] [address] [phone] Potassium 4.7 mmol/L N 3.5-5.0 Chloride 105 [...] 33.8 N >60 5 Laboratory test 02/06/2017 [facility] C Reactive 4.87 mg/L N < 5.00 [address] [place] [address] [phone] Laboratory test 01/23/2017 [facility] Point of Care 118 mg/dL High 74-106 [address] [place] [address] [phone] Electrolytes 01/23/2017 [facility] Sodium 131 Low 133-[address] mmol/[place] [address] [phone] Potassium 5.3 mmol/L High 3.5-5.0 Chloride 102 mmol/L N 101-111 Co2 Carbon Dioxide 23 mmol/L N 22-32 Anion Gap 6 mmol/L N 2-11 Laboratory test 01/23/2017 [facility] Blood Urea 43 mg/dL High 6-[address] [place] [address] [phone] Creatinine 01/23/2017 [facility] Creatinine 3.01 mg/dL High 0.67-1.[address] [place] [address] [phone] Egfr Non- 22.3 N >60 Egfr 28.6 N >60 8 Inr/Protime 01/23/2017 [facility] Inr 1.13 High 0.89-1.[address] [place] [address] [phone] Laboratory test 01/23/2017 [facility] Point of 203 mg/dL High 74-106 [address] [place] [address] [phone] CBC Auto Diff 01/09/2017 [facility] White Blood 6.9 N 3.5- 10.[address] Count 10^3/[place] [address] [phone] Red Blood Count 3.38 10^6/uL Low 4.0-5.4 [...] % 0.1 N Comp Metabolic Panel 01/09/2017 [facility] Sodium 135 mmol/L N 133-145 [address] [place] [address] [phone] Potassium 5.6 mmol/L High 3.5-5.0 Chloride 108 [...] 39.3 N >60 11 Laboratory test 01/09/2017 [facility] C Reactive 24.87 mg/L High < 5.[address] [place] [address] [phone] CBC Auto Diff 01/02/2017 [facility] White Blood 4.8 N 3.5- 10.[address] Count 10^3/[place] [address] [phone] Red Blood Count 3.28 10^6/uL Low 4.0-5.4 [...] Cells % 0 N Laboratory test 01/02/2017 [facility] C Reactive 26.73 mg/L High < 5.[address] [place] [address] [phone] Comp Metabolic 01/02/2017 [facility] Sodium 134 mmol/L N 133- 145 Panel [address] [place] [address] [phone] Potassium 5.1 mmol/L High 3.5-5.0 Chloride 106 [...] N >60 15 CBC Auto Diff 12/27/2016 [facility] White Blood 6.6 10^3/uL N 3.5-10.[address] [place] [address] [phone] Red Blood Count 3.29 10^6/uL Low 4.0-5.4 [...] % 0 N Comp Metabolic Panel 12/27/2016 [facility] Sodium 134 mmol/L N 133-[address] [place] [address] [phone] Potassium 5.2 mmol/L High 3.5-5.0 Chloride 104 [...] 35.8 N >60 16 Laboratory test 12/27/2016 [facility] C Reactive 21.08 mg/L High < 5.00 [address] [place] [address] [phone] CBC Auto Diff 12/12/2016 [facility] White Blood 6.7 N 3.5- 10.[address] Count 10^3/[place] [address] [phone] Red Blood Count 3.25 10^6/uL Low 4.0-5.4 [...] % 0.1 N Comp Metabolic Panel 12/12/2016 [facility] Sodium 136 mmol/L N 133-145 [address] [place] [address] [phone] Potassium 5.7 mmol/L High 3.5-5.0 Chloride 100 [...] 29.9 N >60 19 Laboratory test 12/12/2016 [facility] C Reactive 139.43 mg/L High < 5.00 [address] [place] [address] [phone] Basic Metabolic 12/09/2016 [facility] Sodium 133 mmol/L N 133- 145 Panel [address] [place] [address] [phone] Potassium 5.2 mmol/L High 3.5-5.0 Chloride 103 [...] N >60 21 CBC Auto Diff 12/06/2016 [facility] White Blood 7.0 10^3/uL N 3.5-10.[address] [place] [address] [phone] Red Blood Count 3.03 10^6/uL Low 4.0-5.4 [...] % 0 N Comp Metabolic Panel 12/06/2016 [facility] Sodium 131 mmol/L Low 133-[address] [place] [address] [phone] Potassium 5.3 mmol/L High 3.5-5.0 Chloride 103 [...] 27.9 N >60 23 Laboratory test 12/06/2016 [facility] C Reactive 147.38 mg/L High < 5.00 [address] [place] [address] [phone] Vancomycin Trough 15.5 g/mL N 25 Comp Metabolic Panel 11/29/2016 [facility] Sodium 134 mmol/L N 133-[address] [place] [address] [phone] Chloride 106 mmol/L N 101-111 Co2 Carbon [...] 4 mmol/L N 2-11 Laboratory test 11/29/2016 [facility] C Reactive 12.87 mg/L High < 5.00 [address] [place] [address] [phone] Hemoglobin A1c (Glyco HGB) 11.2 % High Less than 6.0 29 CBC Auto Diff 11/29/2016 [facility] White Blood 6.6 10^3/uL N 3.5-10.[address] [place] [address] [phone] Red Blood Count 3.79 10^6/uL Low 4.0-5.4 [...] Cells % 0.2 N Laboratory test 11/29/2016 [facility] Erythrocyte Sed 118 mm/Hr High 0-[address] [place] [address] [phone] CBC Auto Diff 12/21/2015 [facility] White Blood 5.2 N 3.5- 10.[address] Count 10^3/[place] [address] [phone] Red Blood Count 4.11 10^6/uL N 4.0-5.4 [...] % 0 N Comp Metabolic Panel 12/21/2015 [facility] Sodium 136 mmol/L N 133-145 [address] [place] [address] [phone] Potassium 4.8 mmol/L N 3.5-5.0 Chloride 103 [...] 33.5 N >60 30 Laboratory test 12/21/2015 [facility] Vancomycin Trough 15.8 g /mL N finding [address] [place] [address] [phone] C Reactive Protein 4.19 mg/L N < 5.00 31 CBC Auto Diff 12/15/2015 [facility] White Blood 4.8 10^3/uL N 3.5-10.[address] [place] [address] [phone] Red Blood Count 3.98 10^6/uL Low 4.0-5.4 [...] % 0 N Comp Metabolic Panel 12/15/2015 [facility] Sodium 138 mmol/L N 133-[address] [place] [address] [phone] Potassium 4.6 mmol/L N 3.5-5.0 Chloride 104 [...] 35.6 N >60 32 Laboratory test 12/15/2015 [facility] Vancomycin Trough 21.9 g /mL N finding [address] [place] [address] [phone] C Reactive Protein 7.69 mg/L High < 5.00 33 CBC Auto Diff 12/07/2015 [facility] White Blood 4.2 10^3/uL N 3.5-10.[address] [place] [address] [phone] Red Blood Count 3.62 10^6/uL Low 4.0-5.4 [...] % 0.1 N Comp Metabolic Panel 12/07/2015 [facility] Sodium 137 mmol/L N 133-145 [address] [place] [address] [phone] Potassium 4.7 mmol/L N 3.5-5.0 Chloride 106 [...] 39.8 N >60 34 Laboratory test 12/07/2015 [facility] Vancomycin Trough 18.2 g /mL N finding [address] [place] [address] [phone] C Reactive Protein 8.83 mg/L High < 5.00 35 CBC Auto Diff 11/30/2015 [facility] White Blood 4.1 10^3/uL N 3.5-10.[address] [place] [address] [phone] Red Blood Count 3.59 10^6/uL Low 4.0-5.4 [...] % 0 N Comp Metabolic Panel 11/30/2015 [facility] Sodium 136 mmol/L N 133-[address] [place] [address] [phone] Potassium 4.8 mmol/L N 3.5-5.0 Chloride 103 [...] 38.1 N >60 36 Laboratory test 11/30/2015 [facility] Vancomycin Trough 16.7 g /mL N finding [address] [place] [address] [phone] C Reactive Protein 4.80 mg/L N < 5.00 37 TSH (Thyroid Stim Horm) 1.35 ?IU/mL N 0.34-5.60 T3 Total 0.80 ng/mL Low 0.87-1.78 CBC Auto Diff 11/23/2015 [facility] White Blood 4.4 10^3/uL N 3.5-10.[address] [place] [address] [phone] Red Blood Count 3.48 10^6/uL Low 4.0-5.4 [...] Cells % 0.1 N Basic Metabolic 11/23/2015 [facility] Sodium 132 mmol/L Low 133-[address] [place] [address] [phone] Potassium 4.8 mmol/L N 3.5-5.0 Chloride 103 mmol/L N 101-111 Co2 Carbon Dioxide 23 mmol/L N 22-32 Anion Gap 6 mmol/L N 2-11 Glucose 369 mg/dL High 70-100 Blood Urea Nitrogen 36 mg/dL High 6-24 Creatinine 2.61 mg/dL High 0.67-1.17 BUN/Creatinine Ratio 13.8 N 8-20 Calcium 8.1 mg/dL Low 8.6-10.3 Egfr Non- 26.4 N >60 Egfr 33.9 N >60 38 Laboratory test 11/23/2015 [facility] Vancomycin Trough 14.7 g /mL N finding [address] [place] [address] [phone] C Reactive Protein 7.00 mg/L High < 5.00 39 Laboratory test 11/16/2015 [facility] Vancomycin 17.2 g/mL N finding [address] [place] [address] [phone] Basic Metabolic 11/16/2015 [facility] Sodium 138 mmol/L N 133- [address] [place] [address] [phone] Potassium 4.5 mmol/L N 3.5-5.0 Chloride 107 [...] mg/dL Low 8.6-10.3 CBC Auto Diff 11/13/2015 [facility] White Blood 4.8 10^3/uL N 3.5-10.[address] [place] [address] [phone] Red Blood Count 3.49 10^6/uL Low 4.0-5.4 [...] Cells % 0.2 N Laboratory test 11/13/2015 [facility] Vancomycin Trough 26.2 g /mL N [address] [place] [address] [phone] C Reactive Protein 7.37 mg/L High < 5.00 42 Comp Metabolic Panel 11/13/2015 [facility] Sodium 137 mmol/L N 133-[address] [place] [address] [phone] Potassium 4.8 mmol/L N 3.5-5.0 Chloride 107 [...] 53.8 N >60 43 Laboratory test 10/29/2015 [facility] Wound SEE RESULT [address] Culture/[place] [address] [phone] Comp Metabolic 10/29/2015 [facility] Sodium 133 mmol/L N 133- [address] [place] [address] [phone] Potassium 5.2 mmol/L High 3.5-5.0 Chloride 103 [...] N >60 45 CBC Auto Diff 10/29/2015 [facility] White Blood 4.9 10^3/uL N 3.5-10.[address] [place] [address] [phone] Red Blood Count 3.91 10^6/uL Low 4.0-5.4 [...] Cells % 0.1 N Laboratory test 10/29/2015 [facility] C Reactive 6.00 mg/L High < 5.00 [address] Protein [place], [place] [address] [phone] 1 SEE RESULT BELOW Name: MARYAMMON : [address]: Ashley GEORGE Acct: [id number] Unit: [id number] AGE: 52 Location: [facility] Re12/28/17 SEX: M Status: REG REF SPEC: [id number] MARY: 12/28/17-[address]: Ashley GEORGE REQ: [id number] RECD: 12/28/17 STATUS: COMP _ SOURCE: MISC SOURC SPDESC:OTHER ORDERED: Culture Stain COMMENTS: Source: Right Foot per Praveena Mota RN.; [id number] Procedure Result Reported Site Wound/Misc Gram Stain [...] CONTINUED ON NEXT PAGE DEPARTMENT OF PATHOLOGY, [address] [place] [address] Dayne Pires M.D. Director [facility] # [id number] Patient: AMMON GALO [id number] (Continued) Specimen: [id number] Collected: 03/29/18-1156 Received: 12/28/17 (Continued) Procedure Result Reported Site Wound/Misc Culture Final (continued) 12/30/171020 1. STAPHYLOCOCCUS AUREUS (continued) M.I.C. RX --------- ------ Vancomycin <=0.5 S Imipenem-Deduced S * Ampicillin/Sulbactam-Deduced S Cefazolin-Deduced S * These antibiotics are not available in the [facility] Formulary Contact the Microbiology Department for any additional antibiotic reporting. * ML - Main Lab . END OF REPORT DEPARTMENT OF PATHOLOGY, [address] [place] [address] Dayne Pires M.D. Director [facility] # [id number] 3 Because ethnic data is not always [...] (or dialysis) 6 Acute inflammation: >10.00 7 Hand Salter: [id number] 8 Because ethnic data is not always [...] 5 Kidney failure <15 (or dialysis) 9 Hand Salter: [id number] 11 Because ethnic data is not always [...] (or dialysis) 12 Acute inflammation: >10.00 13 [id number] 14 Acute inflammation: >10.00 15 Because ethnic [...] inflammation: >10.00 18 FAX RESULTS TO AT [phone] [id number] 19 Because ethnic data is not always [...] 5 Kidney failure <15 (or dialysis) 22 [id number] 23 Because ethnic data is not always [...] (or dialysis) 24 Acute inflammation: >10.00 25 [id number] 26 Because ethnic data is not always [...] K:6.[address] BAER at: 19:10:52 by:[id number] Read back by:DR BAER 28 Acute inflammation: >10.00 29 Therapeutic target for the treatment of diabetes Mellitus patients is <7% HBA1C, and in selective patients <6.0%.Please refer to [place] [employer] Diabetic care guidelines for further [...] failure <15 (or dialysis) 41 ATN: DELMI ADA BRIDGETT FAX# [phone] 42 Acute inflammation: >10.00 43 Because ethnic [...] [address]: Doug Martinez MD Acct: [id number] Unit: [id number] AGE: 50 [facility] SEX: M Status: REG REF SPEC: [id number] MARY: 10/29/15-[address] [facility] [address]: Doug Martinez MD REQ: [id number] RECD: 10/29/15 STATUS: COMP _ SOURCE: FOOT,LEFT SPDESC: ORDERED: Culture Stain Procedure Result Reported Site Wound/Misc Gram Stain Final 10/30/15- 30 ML 1+ Neutrophils 3+ Gram Positive Bacilli Wound/Misc Culture Final 10/30/15- 1238 ML Organism 1 CORYNEBACTERIUM STRIATUM Quantity 2+ * ML - MAIN LAB (PSC1) . END OF REPORT * ML=Testing performed at Main Lab DEPARTMENT OF PATHOLOGY, [address] [place] [address] Dayne Pires M.D. Director [facility] # [id number] 45 Because ethnic data is not always [...] inflammation: >10.00 Procedures Date Code Description Status 09/19/2018 66504 Walking Cast Completed 09/12/2018 02548 Walking Cast Completed 09/05/2018 67099 Walking Cast Completed 08/29/2018 84814 Walking Cast Completed 08/13/2018 34252 Apply Total Contact Leg Cast Completed 08/08/2018 91375 Walking Cast Completed 07/27/2018 22827 Apply Total Contact Leg Cast Completed 07/18/2018 79146 Walking Cast Completed 07/11/2018 40173 Apply Total Contact Leg Cast Completed 06/20/2018 99543 ECHO Transthorasic Realtime 2D W Doppler & Color Flow Hosp Completed 06/19/2018 86273 Apply Total Contact Leg Cast Completed 02/14/2018 80403 Apply Total Contact Leg Cast Completed 01/16/2018 35425 Treadmill Interp/Report Only Completed 01/16/2018 47232 Stress Test Supervsn W/Out I/R Completed 01/16/2018 93283 Amputation Foot Midtarsal Completed 01/16/2018 11442 Amputation Foot Midtarsal Completed 01/15/2018 56595 EKG, Interpretation Only Completed 01/15/2018 32781 Amputation Foot Midtarsal Completed 01/14/2018 51935 EKG, Interpretation Only Completed 10/26/2017 21424 Short Leg Cast Completed 10/16/2017 91754 Amputation Toe MP JT Completed 10/16/2017 30602 Amputation Toe MP JT Completed 10/16/2017 32088 Amputation Toe MP JT Completed 10/16/2017 59341 Amputation Toe MP JT Completed 10/16/2017 17285 Amputation Toe MP JT Completed 02/07/2017 68453 Short Leg Cast Completed 02/03/2017 86842 EKG, Interpretation Only Completed 01/23/2017 02142 Amputation Foot Midtarsal Completed 01/23/2017 12343 Amputation Foot Midtarsal Completed 01/17/2017 65072 ECHO Transthorasic Realtime 2D W Doppler & Color Flow Hosp Completed 01/17/2017 91305 Treadmill Interp/Report Only Completed 01/17/2017 79551 Stress Test Supervsn W/Out I/R Completed 01/16/2017 68901 EKG, Interpretation Only Completed 01/11/2017 22851 Rad Exam; Foot Comp Completed 02/01/2011 35272 EKG, Interpretation Only Completed 07/04/2006 33565 Treadmill Interp/Report Only Completed 07/04/2006 29331 Stress Test Supervsn W/Out I/R Completed 07/04/2006 20142 Stress Test Supervsn W/Out I/R Completed Encounters Type Date Location Provider Dx Diagnosis Office Visit 09/05/2018 [facility] Robert Galarza L97.419 Non- prs chr 3:00p Of Hand Tapper AT [facility].May ulcer of right heel and midfoot w [facility] Office Visit 08/22/2018 [facility] Robert Galarza L97.419 Non- prs chr 2:45p Of Hand Tapper AT [facility] Tia ulcer of right heel and midfoot w [facility] se[facility] Office Visit 08/12/2018 [facility] Jayson Alba L97.419 Non- prs chr 1:06p Of Darshana YEUNG ulcer of right heel and midfoot w [facility] Office Visit 08/11/2018 [facility] Lisa Antonio MD R06.02 Shortness of 9:38a Assoc,pc breath Hospitalists R10.32 Left lower quadrant pain R79.89 Other specified abnormal findings of blood chemistry E11.9 Type 2 diabetes mellitus without complications Office Visit 08/10/2018 9:38a [facility] Yue Mccall, R07.9 Chest pain , Assoc,pc N.P. unspecified Hospitalists R06.02 Shortness of breath E11.22 Type 2 diabetes mellitus w diabetic chronic kidney disease N18.5 Chronic kidney disease, stage 5 Z79.4 USP (current) use of insulin Z89.421 Acquired absence of other right toe(s) Z89.422 Acquired absence of other left toe(s) Office Visit 08/08/2018 Orthopedic Robert De La Garza671 Other chronic 11:00a Services Of Татьяна Galarza M.D. osteomyelitis, AT [facility] right ankle and foot Office Visit 07/11/2018 Orthopedic Robert Tam1 Other chronic 10:45a Services Of Татьяна Galarza M.D. osteomyelitis, AT [facility] right ankle and foot Office Visit 07/03/2018 [facility] Beth I16.0 Hypertensive 10:20a Assocjazmin M.D. urgency Hospitalists R11.2 Nausea with vomiting, unspecified L97.419 Non-prs chr ulcer of right heel and midfoot w [facility] severt E11.621 Type 2 diabetes mellitus with foot ulcer B95.4 Oth streptococcus as the cause of diseases classd elswhr Office Visit 07/02/2018 [facility] Francisoc J Marks I16.0 Hypertensive 10:20a jazmin Anna II, M.D. urgency Hospitalists I50.32 Chronic diastolic (congestive) heart failure K92.0 Hematemesis E87.2 Acidosis E11.22 Type 2 diabetes mellitus w diabetic chronic kidney disease N18.5 Chronic kidney disease, stage 5 L97.419 Non-prs chr ulcer of right heel and midfoot w [facility] E11.621 Type 2 diabetes mellitus with foot ulcer Office Visit 06/23/2018 11:59a [facility] Yue Mccall, E87.70 Fluid overload, Assoc,pc N.P. unspecified Hospitalists I50.32 Chronic diastolic (congestive) heart failure Z79.4 ad terminal makeup operator (current) use of insulin N18.5 Chronic kidney disease, stage 5 E11.22 Type 2 diabetes mellitus w diabetic chronic kidney disease Office Visit 06/22/2018 11:59a [facility] Yue Mccall, N18.9 Chronic kidney Assoc,pc N.P. 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 chronic kidney disease w [facility] 1-4/unsp chr kdny Office Visit 06/21/2018 11:58a [facility] E87.2 Acidosis Assoc,pc Hospitalists SONYA Solo N18.9 Chronic kidney disease, unspecified S91.301A Unspecified open wound, right foot, initial encounter I50.32 Chronic diastolic (congestive) heart failure J44.9 Chronic obstructive pulmonary disease, unspecified E11.22 Type 2 diabetes mellitus w diabetic chronic kidney disease I12.9 Hypertensive chronic kidney disease w [facility] 1-4/unsp chr kdny E87.5 Hyperkalemia E66.01 Morbid (severe) obesity due to excess calories Office Visit 06/20/2018 1:47p Orthopedic Yandy Santos, 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) L97.419 Non-prs chr ulcer of right heel and midfoot w [facility] Office Visit 06/20/2018 11:57a [facility] E87.2 Acidosis Assoc,pc Hospitalists SONYA Solo N18.9 Chronic kidney disease, unspecified S91.301A Unspecified open wound, right foot, initial encounter I50.32 Chronic diastolic (congestive) heart failure J44.9 Chronic obstructive pulmonary disease, unspecified E11.22 Type 2 diabetes mellitus w diabetic chronic kidney disease E87.5 Hyperkalemia I12.9 Hypertensive chronic kidney disease w [facility] 1-4/unsp chr kdny E66.01 Morbid (severe) obesity due to excess calories Office Visit 06/19/2018 11:57a [facility] E87.2 Acidosis Assoc,pc Hospitalists SONYA Solo E11.22 Type 2 diabetes mellitus w diabetic chronic kidney disease I10 Essential (primary) hypertension N18.9 Chronic kidney disease, unspecified Office Visit 06/19/2018 10:15a Orthopedic Jayson Alba, L97.419 Non-prs chr Services Of [place] ulcer of right C.M.A. heel and midfoot w [facility] Z79.4 ad terminal makeup operator (current) use of insulin E11.621 Type 2 diabetes mellitus with foot ulcer Office Visit 05/29/2018 1:12p [facility] Bairon Whitmore E11.621 Type 2 Assocjazmin MD [...] lower limb C.M.A. Office Visit 05/29/2018 12:31p [facility] Doug Olvera E10.621 Type 1 diabetes Martina Martinez M.D. 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 diabetes Hospitalists mellitus with foot ulcer L97.418 Non-prs chronic ulcer of right heel/midft with oth severity M86.271 Subacute osteomyelitis, right ankle and foot D63.8 Anemia in other chronic diseases classified elsewhere I10 Essential (primary) hypertension E11.22 Type 2 diabetes mellitus w diabetic chronic kidney disease N18.4 Chronic kidney disease, stage 4 (severe) Office Visit 05/25/2018 [facility] Beth Tobias, L97.418 Non-prs chronic 1:10p Assocjazmin M.D. ulcer of right Hospitalists heel/midft with [...] ankle and foot Office Visit 02/27/2018 11:10a [facility] Michael Olvera Z86.19 Personal history Infectious Tia Martinez of other Diseases infectious and parasitic diseases E11.40 Type 2 diabetes mellitus with diabetic neuropathy, unsp Z89.421 Acquired absence of other right toe(s) Office Visit 01/17/2018 [facility] Doug May E11.69 Type 2 diabetes 1:16p For Infectious Alondra Martinez. 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 E11.51 Type 2 diabetes w diabetic peripheral angiopath w/o gangrene N18.3 Chronic kidney disease, stage 3 (moderate) Z79.4 ad terminal makeup operator (current) use of insulin Office Visit 01/16/2018 [facility]86.271 Subacute 11:02a jazmin Anna [facility] osteomyelitis, Hospitalists Germania, BOILER ROOM HELPER right ankle and foot E11.51 Type 2 diabetes w diabetic peripheral angiopath w/o gangrene N18.3 Chronic kidney disease, stage 3 (moderate) Z79.4 ad terminal makeup operator (current) use of insulin Office Visit 01/15/2018 [facility] Doug May E11.69 Type 2 diabetes 12:39p For Infectious Tia Martinez mellitus with Diseases other specified complication M86.171 Other acute osteomyelitis, right ankle and foot E11.22 Type 2 diabetes mellitus w diabetic chronic kidney disease N18.4 Chronic kidney disease, stage 4 (severe) E11.40 Type 2 diabetes mellitus with diabetic neuropathy, unsp Z89.421 Acquired absence of other right toe(s) Office Visit 01/15/2018 [facility] Bárbara M86.271 Subacute 11:01a jazmin Anna [facility] osteomyelitis, Hospitalists Germania, BOILER ROOM HELPER right ankle and foot E11.51 Type 2 diabetes w diabetic peripheral angiopath w/o gangrene N18.3 Chronic kidney disease, stage 3 (moderate) Z79.4 ad terminal makeup operator (current) use of insulin Office Visit 01/14/2018 [facility] Yue Mccall M86.271 Subacute 11:00a Assjazmin multani N.P. osteomyelitis, Hospitalists right ankle and foot E11.51 Type 2 diabetes w diabetic peripheral angiopath w/o gangrene N18.3 Chronic kidney disease, stage 3 (moderate) Z79.4 USP (current) use of insulin Office Visit 01/13/2018 [facility] Yue Cal M86.271 Subacute 10:59a jazmin Anna N.P. osteomyelitis, Hospitalists right ankle and foot E11.51 Type 2 diabetes w diabetic peripheral angiopath w/o gangrene N18.3 Chronic kidney disease, stage 3 (moderate) Z79.4 ad terminal makeup operator (current) use of insulin Office 01/12/2018 [facility] M86.271 Subacute Visit 10:58a Assjazmin multani [place] osteomyelitis, Hospitalists right ankle and foot E11.51 Type 2 diabetes w diabetic peripheral angiopath w/o gangrene N18.3 Chronic kidney disease, stage 3 (moderate) Z79.4 ad terminal makeup operator (current) use of insulin Office Visit 01/11/2018 [facility] M86.271 Subacute 10:56a jazmin Anna M.D. osteomyelitis, Hospitalists right ankle and foot E11.51 Type 2 diabetes w diabetic peripheral angiopath w/o gangrene N18.3 Chronic kidney disease, stage 3 (moderate) Z79.4 ad terminal makeup operator (current) use of insulin Office Visit 10/19/2017 3:02p [facility] N17.9 Acute kidney Assoc,jazmin Manning M.D. failure, Hospitalists unspecified N18.3 Chronic kidney disease, stage 3 (moderate) E11.42 Type 2 diabetes mellitus with diabetic polyneuropathy Z79.4 ad terminal makeup operator (current) use of insulin Office Visit 10/18/2017 3:02p [facility] N17.9 Acute kidney Assoc,jazmin Manning M.D. failure, Hospitalists unspecified N18.3 Chronic kidney disease, stage 3 (moderate) E11.42 Type 2 diabetes mellitus with diabetic polyneuropathy Office Visit 10/17/2017 [facility] Doug Olvera E11.69 Type 2 diabetes [...] causing dis classd elswhr [facility] N17.9 Acute kidney 3:01p jazmin Anna M.D. failure, Hospitalists unspecified N18.3 Chronic kidney disease, stage 3 (moderate) E11.42 Type 2 diabetes mellitus with diabetic polyneuropathy Office Visit 10/16/2017 [facility] Doug Olvera E11.69 Type 2 diabetes 1:07p For Infectious Tia Martinez mellitus with Diseases other specified complication M86.671 Other chronic osteomyelitis, right ankle and foot E11.40 Type 2 diabetes mellitus with diabetic neuropathy, unsp L03.031 Cellulitis of right toe E11.22 Type 2 diabetes mellitus w diabetic chronic kidney disease N18.9 Chronic kidney disease, unspecified Office Visit 10/16/2017 [facility] S90.851A Superficial 3:01p jazmin Anna M.D. foreign body, Hospitalists right foot, initial encounter N17.9 Acute kidney failure, unspecified E11.42 Type 2 diabetes mellitus with diabetic polyneuropathy Office 10/15/2017 [facility] Lee F M86.271 Subacute Visit 9:39a Services Of MD Kenji osteomyelitis, C.M.A. right ankle and foot Office 10/15/2017 [facility] S90.851A Superficial foreign Visit 3:00p jazmin Anna M.D. body, right foot, Hospitalists initial encounter N17.9 Acute kidney failure, unspecified N18.3 Chronic kidney disease, stage 3 (moderate) E11.42 Type 2 diabetes mellitus with diabetic polyneuropathy Office Visit 10/14/2017 [facility] S90.851A Superficial 2:59p jazmin Anna D.O. 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 Hospitalists E11.8 Type 2 diabetes mellitus with unspecified complications G62.9 Polyneuropathy, unspecified N18.3 Chronic kidney disease, stage 3 (moderate) Office Visit 02/03/2017 3:46p [facility] [place], E87.5 Hyperkalemia Assoc,pc N.P. 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 N18.4 Chronic kidney disease, stage 4 (severe) Z89.432 Acquired absence of left foot Office Visit 01/25/2017 4:16p [facility] Ryan Howard, N18.3 Chronic kidney Assoc,pc Kristine.DRafael disease, stage 3 Hospitalists (moderate) M86.60 Other chronic osteomyelitis, unspecified site E11.22 Type 2 diabetes mellitus w diabetic chronic kidney disease Z89.432 Acquired absence of left foot Office Visit 01/24/2017 4:15p [facility] Ryan Howard, N18.3 Chronic kidney Assoc,pc M.DRafael disease, stage 3 Hospitalists (moderate) Z89.432 Acquired absence of left foot E11.22 Type 2 diabetes mellitus w diabetic chronic kidney disease M86.60 Other chronic osteomyelitis, unspecified site Office Visit 01/24/2017 [facility] Doug Olvera E10.69 Type 1 diabetes 8:18a For Infectious Alondra Martinez. 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 Office Visit 01/23/2017 4:13p [facility] Vinicio Z89.432 Acquired Assoc,pc MD Jose De Jesus absence of Hospitalists left foot M86.60 Other chronic osteomyelitis, unspecified site E11.22 Type 2 diabetes mellitus w diabetic chronic kidney disease Office Visit 01/18/2017 11:19a [facility] Amanda Lynne, 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,pc BOILER ROOM HELPER collapse Hospitalists N17.9 Acute kidney failure, unspecified N18.4 Chronic kidney disease, stage 4 (severe) M86.9 Osteomyelitis, unspecified Office Visit 01/17/2017 [facility] Thiago BoudreauxVazquezNoel, R55 Syncope and 11:18a Assoc,pc PA collapse Hospitalists N17.9 Acute kidney failure, unspecified E11.22 Type 2 diabetes mellitus w diabetic chronic kidney disease N18.4 Chronic kidney disease, stage 4 (severe) Office Visit 01/16/2017 11:18a [facility] Juni Baironanil, 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jazmin M.D. collapse Hospitalists N17.9 Acute kidney failure, unspecified E11.22 Type 2 diabetes mellitus w diabetic chronic kidney disease N18.4 Chronic kidney disease, stage 4 (severe) Office Visit 01/11/2017 [facility] Robert M86.672 Other chronic 9:30a Services Of Татьяна Galarza M.D. 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 M86.672 Other chronic osteomyelitis, left ankle and foot D64.9 Anemia, unspecified Office Visit 11/29/2016 8:50a [facility] Michael Olvera L97.524 Non- prs Infectious Tia Martinez chronic ulcer Diseases oth prt left foot w necrosis of bone E11.40 Type 2 diabetes mellitus with diabetic neuropathy, unsp M86.672 Other chronic osteomyelitis, left ankle and foot E11.621 Type 2 diabetes mellitus with foot ulcer E11.69 Type 2 diabetes mellitus with other specified complication Office Visit 01/12/2016 [facility] Doug Olvera M86.672 Other chronic 11:30a For Infectious Tia Martinez osteomyelitis, left Diseases ankle and foot Office Visit 12/01/2015 [facility] Doug Olvera M86.672 Other chronic 10:10a For Infectious Alondra Martinez. osteomyelitis, left Diseases ankle and foot Office Visit 12/01/2015 [facility]ology And Gayatri G47.9 Sleep disorder, 11:00a Sleep Services MD Mitchel unspecified Of [facility] E66.01 Morbid (severe) obesity due to excess calories Office Visit 10/29/2015 [facility] For Doug Olvera M86.672 Other chronic 4:20p Infectious Tia Martinez osteomyelitis, left Diseases ankle and foot Office Visit 10/09/2014 [facility] [place] 354.2 Lesion Ulnar Nerve 9:30a Services Of Tia Eli C.M.ARafael Office Visit 01/09/2013 [facility] Scot 790.6 Abnormal Blood 2:37p Assoc,jazmin Sutton, N.P. Chemistry Other Hospitalists 250.02 Diabetes Mellitus W/O Compl Type II Or Unspec Type Uncontrol 250.20 Diabetes W/ Hyperosmolarity Type II Or Unspec Controlled 357.2 Polyneuropathy In Diabetes Office Visit 09/17/2009 [facility] Beth oTbias, 251.2 Hypoglycemia Other 12:15a Assjazmin multani M.D. Unspec Hospitalists Plan of Treatment Future Appointment(s):10/03/2018 10:00 am - Robert Galarza M.D. at [facility] AT [id number] 1:00 pm - Joaquina Concepcion MD at [facility] Tfphpxxejv89/19/2018 - Robert Galarza M.D.E11.621 Type 2 diabetes mellitus with foot ulcerFollow up:2 weeks
--- NOTE | 2018-09-30 20:28 | ED ---
Altered Mental Status - HPI Summary HPI Summary: Pt is a 53 y/o male brought in by EMS who presents to the ED c/o syncope. Pt c/ o confusion, SOB, fatigue, dizziness, and lightheadedness. He was in his friend s car when he had a syncopal episode, after being off his oxygen since this morning. Pt has been on 3 L O2 NC at home for the past 6 months. He hired somebody to move things out of his storage unit, but his oxygen machine was not brought to him. Pt is not sure where the machine is, and he ran out of his oxygen tanks this morning. He states that his PCP Dr. Morrison is not going to give him any more oxygen tanks, and he instead needs a concentrator. Pt also has not checked his blood sugar in 2 months, since his insurance doesnt pay for the sugar test sticks and he cannot afford them. Additionally, he was recently taken off his Lasix last month at [place], and subsequently gained 50 lbs. He is not sure where he is going to live since his sister is kicking him out. PMHx COPD, HTN, DM, CHF, and kidney issues. - History Of Current Complaint Stated Complaint: DIFF BREATHING Hx Obtained From: Patient, EMS Onset/Duration: Resolved, Gradually Timing: Lasting Hours Aggravating Factor(s): Other - Lack of O2 Alleviating Factor(s): Oxygen Associated Signs And Symptoms: Positive: Dizziness - Allergies/Home Medications Allergies/Adverse Reactions: Allergies Allergy/AdvReac Type Severity Reaction Status Date / Time peanut Allergy Rash Verified 09/05/18 17:56 peanut oil Allergy Rash Verified 09/05/18 17:56 spinach Allergy "My tongue Verified 09/05/18 17:56 swells up and I can't breathe." strawberry Allergy "My tongue Verified 09/05/18 17:56 swells right up." sulfamethoxazole Allergy "I don't Verified 09/05/18 17:56 [From Bactrim] know ... lips swelled up." trimethoprim [From Bactrim] Allergy "I don't Verified 09/05/18 17:56 know ... lips swelled up." Home Medications: Home Medications Budesonide/Formote 160/4.5(NF) [Symbicort 160/4.5 (NF)] 1 puff INH DAILY [History Confirmed 09/30/18] Gabapentin CAP(*) [Neurontin 300 CAP(*)] 300 mg PO BID 09/30/18 [History Confirmed 09/30/18] Insulin Glargine,Hum.rec.anlog [Basaglar Kwikpen U-100] 42 units SUBCUT DAILY [History Confirmed 09/30/18] Sodium Bicarbonate 1 tab PO BID 09/30/18 [History Confirmed 09/30/18] PMH/Surg Hx/FS Hx/Imm Hx Endocrine/Hematology History: Reports: Hx Diabetes, Hx Anemia Denies: Hx Blood Transfusions, Hx Systemic Lupus Erythematosus, Hx Thyroid Disease, Other Endocrine/Hematological Disorders Cardiovascular History: Reports: Hx Angina, Hx Congestive Heart Failure, Hx Coronary Artery Disease, Hx Hypercholesterolemia, Hx Hypertension, Hx Peripheral Vascular Disease Denies: Hx Myocardial Infarction, Hx Pacemaker/ICD, Hx Valvular Heart Disease Respiratory History: Reports: Hx Chronic Obstructive Pulmonary Disease (COPD) - home O2, does not use, Hx Sleep Apnea - suspected, Other Respiratory Problems/ Disorders - COPD Denies: Hx Asthma, Hx Cystic Fibrosis, Hx Lung Cancer, Hx Pleural Effusion, Hx Pneumonia, Hx Pulmonary Edema, Hx Pulmonary Embolism, Hx Seasonal Allergies GI History: Reports: Hx Gastroesophageal Reflux Disease Denies: Hx Ulcer History: Reports: Hx Chronic Renal Failure, Hx Kidney Stones - possibly 2017 per Pt, Other Problems/Disorders - CKD Denies: Hx Acute Renal Failure, Hx Dialysis, Hx Kidney Infection, Hx Renal Disease Musculoskeletal History: Reports: Other Musculoskeletal History Denies: Hx Rheumatoid Arthritis Sensory History: Reports: Hx Cataracts, Other Sensory Impairments - peripheral neuropathies Denies: Hx Contacts or Glasses, Hx Hearing Aid Opthamlomology History: Reports: Hx Cataracts, Other Sensory Impairments - peripheral neuropathies Denies: Hx Contacts or Glasses Neurological History: Reports: Hx Headaches, Hx Migraine, Hx Nerve Disease, Other Neuro Impairments/Disorders - Hx Pre syncope, phantom toe pain left foot, yousuf numb/tingling feet Denies: Hx Dementia, Hx Developmental Delay, Hx Seizures, Hx Spinal Cord Injury, Hx Transient Ischemic Attacks (TIA) Psychiatric History: Reports: Hx Anxiety - PRN LORAZEPAM, Hx Eating Disorder, Hx Depression, Hx of Violent Episodes Against Others Denies: Hx Panic Disorder, Hx Inpatient Treatment - Cancer History Hx Chemotherapy: No Hx Radiation Therapy: No Hx Palliative Cancer Treatment: No - Surgical History Surgery Procedure, Year, and Place: right big toe amputation, - ALL REMOVED NOW (11/2017). CATARACT WITH LENS IMPLANTS - BY DR DENNEY. 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 Hx Anesthesia Reactions: No Infectious Disease History: Reports: Hx of Known/Suspected MRSA - [facility], Chest, 2005 Denies: Hx Hepatitis, Hx Human Immunodeficiency Virus (HIV), History Other Infectious Disease, Traveled Outside the [place] in Last 30 Days - Family History Known Family History: Positive: Diabetes Negative: Cardiac Disease - Social History Alcohol Use: None Hx Substance Use: No Substance Use Type: Reports: None Substance Use Comment - Amount & Last Used: CHEWING TOBACCO Hx Tobacco Use: Yes Smoking Status (MU): Former Smoker Type: Smokeless Tobacco Amount Used/How Often: quit in 2009 Length of Time of Smoking/Using Tobacco: <1 PPD x 26 Years Have You Smoked in the Last Year: No Review of Systems Positive: Fatigue Positive: Shortness Of Breath Neurological: Other - Dizziness, lightheadedness, AMS Positive: Syncope All Other Systems Reviewed And Are Negative: Yes Physical Exam - Summary Physical Exam Summary: Appearance: Well appearing, no pain distress Skin: warm, dry, pale Head/face: normal Eyes: EOMI, MICKEY ENT: mucous membranes moist Neck: supple, non-tender Respiratory: mild wheezes in right base, breath sounds present Cardiovascular: RRR, pulses symmetrical Abdomen: non-tender, soft Bowel Sounds: present Musculoskeletal: normal, strength/ROM intact, amputated left foot, amputated right foot with cast up to knee Neuro: normal, sensory motor intact, A&Ox3 Triage Information Reviewed: Yes Vital Signs Reviewed: Yes Diagnostics - Laboratory Result Diagrams: 09/30/18 20:30 09/30/18 21:22 Lab Statement: Any lab studies that have been ordered have been reviewed, and results considered in the medical decision making process. - Radiology CXR Radiology Interpretation Completed By: ED Physician Summary of Radiographic Findings: No acute findings. No significant change from previous. Pending official radiology report. - EKG 21:38 Cardiac Rate: NL - 72 bpm EKG Rhythm: Sinus Rhythm ST Segment: Normal Summary of EKG Findings: Nl axis, nl intervals. Altered Mental Statu Course/Dx - Course Course Of Treatment: Nurse's notes reviewed. Patient has been off oxygen and had a syncopal or near syncopal event. He has been noncompliant with checking his blood sugars. His blood glucoses over 500. He recovered quickly after being placed on oxygen by paramedics. There is no evidence of new CHF or COPD exacerbation. He is acidotic which could have been from the hypoxic episodes. His oxygen concentrator is now in storage after being evicted from his apartment. There is no anion gap and so DKA is unlikely here. He is given IV fluids, IV insulin but not placed on a drip. I discussed this with the hospitalist who agrees. Patient will be treated medically on the floor. Admit for further. - Diagnoses Differential Diagnosis/HQI/PQRI: Hypoglycemia, Hyperthermia, Hypoxia, Intoxication, Medication Reaction, Metabolic Disorder, Sepsis Provider Diagnoses: Hyperglycemia due to type 2 diabetes mellitus, Hypoxia, Non compliance w medication regimen, Chronic renal failure, Metabolic acidosis, Uncontrolled hypertension - Provider Notifications Discussed Care Of Patient With: Beth Tobias Time Discussed With Above Provider: 21:51 Instructed by Provider To: Admit As Inpatient - Dr. Tobias accepts for admission, and agrees to not give an insulin drip. - Critical Care Time Critical Care Time: 30-74 min - CCT is EXCLUSIVE of separately billable procedures. Discharge - Sign-Out/Discharge Documenting (check all that apply): Patient Departure - Admit - Discharge Plan Condition: Fair Disposition: ADMITTED TO [facility] - Billing Disposition and Condition Condition: FAIR Disposition: Admitted to [facility] - Attestation Statements Document Initiated by Mikkiibe: Yes Documenting Scribe: Le Perez Provider For Whom Deloris is Documenting (Include Credential): Alex Lomeli MD Scribe Attestation: Le Cabral, scribed for Alex Lomeli MD on 09/30/18 at 2355. Scribe Documentation Reviewed: Yes Provider Attestation: The documentation as recorded by the Le vicente accurately reflects the service I personally performed and the decisions made by me, Alex Lomeli MD Status of Scribe Document: Viewed
[2018-09-30 20:57] LABS: ABS Basophils 0 10^3/ul (0-0.2); ABS Eosinophils 0.1 10^3/ul (0-0.6); ABS Lymphocytes 0.8 10^3/ul (1.0-4.8); ABS Monocytes 0.4 10^3/ul (0-0.8); ABS Neutrophils 3.4 10^3/ul (1.5-7.7); ABS Nucleated RBC 0 10^3/ul; Eosinophil % 2.4 %; Hematocrit 28 % (42-52); Hemoglobin 9.1 g/dl (14.0-18.0); Lymphocyte % 16.2 %; Mean Corpuscular HGB Conc 32 g/dl (31-36); Mean Corpuscular Hemoglobin 28 pg (27-31); Mean Corpuscular Volume 89 fL (80-94); Mean Platelet Volume 8.9 fL (7.4-10.4); Nucleated Red Blood Cells % 0; Platelet Count 143 10^3/ul (150-450); Red Blood Count 3.19 10^6/ul (4.00-5.40); Red Cell Distribution Width 17 % (10.5-15); White Blood Count 4.7 10^3/ul (3.5-10.8)
[2018-09-30] MEDS ORDERED: Insulin REGULAR(*) 1 UNITS UNIT IV PUSH ONE (20:59)
[2018-09-30] MEDS ORDERED: NS 0.9% 1000 ML* 1,000 ML IV ONE (20:59)
[2018-09-30 21:08] LABS: ALT 18 U/L (7-52); Albumin 3.3 g/dL (3.2-5.2); Albumin/Globulin Ratio 0.9 (1-3); Alkaline Phosphatase 102 U/L (34-104); BUN/Creatinine Ratio 12.2 (8-20); Blood Urea Nitrogen 62 mg/dL (6-24); CO2 Carbon Dioxide 17 mmol/L (22-32); Calcium 8.4 mg/dL (8.6-10.3); Chloride 101 mmol/L (101-111); EGFR Non-African American 12.1 (>60); Globulin 3.5 g/dL (2-4); Sodium 127 mmol/L (135-145); Total Protein 6.8 g/dL (6.4-8.9)
[2018-09-30 21:11] LABS: Glucose 547 mg/dL (70-100)
[2018-09-30 21:18] LABS: Anion Gap 9 mmol/L (2-11)
[2018-09-30] MEDS ORDERED: Gabapentin CAP(*) 300 MG PO ONE (21:27)
[2018-09-30 21:55] LABS: Urine Appearance Clear; Urine Bacteria Absent (Absent); Urine Bilirubin Negative (Negative); Urine Blood 1+ (Negative); Urine Color Straw; Urine Glucose 3+(>=500 mg/dL) (Negative); Urine Ketones Negative (Negative); Urine Nitrite Negative (Negative); Urine Protein 2+(100 mg/dL) (Negative); Urine Red Blood Cell Trace(0-2/hpf) (Absent); Urine Specific Gravity 1.012 (1.010-1.030); Urine Urobilinogen Negative (Negative); Urine White Blood Cell Trace(0-5/hpf) (Absent)
[2018-09-30] MEDS ORDERED: hydrALAZINE IV* 20 MG/ML VIAL IV SLOW PU ONE (21:55)
[2018-09-30] MEDS ORDERED: INSULIN GLARGINE HUM REC ANLOG 42 UNIT SUBCUT SCH (22:45)
[2018-09-30] MEDS ORDERED: Sodium Bicarbonate (ANTACID)* 650 MG TAB PO SCH (23:00)
[2018-09-30] MEDS ORDERED: Dextrose 50% Syringe 50 ML* 25 GM/50 ML SYRINGE IV PUSH PRN (23:06)
[2018-09-30] MEDS ORDERED: Al Hydrox/Mg Hydrox/Simet LIQ* 30 ML UDC PO PRN (23:08)
--- NOTE | 2018-10-01 02:50 | HP ---
CC: Dr. Morrison; Nephrology Department, Dr. Joaquina Concepcion; Dr. Martinez; Dr. Galarza* HISTORY AND PHYSICAL: DATE OF ADMISSION: 09/30/18 PRIMARY CARE PROVIDER: Dr. Morrison. CHIEF COMPLAINT: Shortness of breath. HISTORY OF PRESENT ILLNESS: Tanner Galo is a 53-year-old male with history of insulin-dependent diabetes, status post multiple surgeries in bilateral feet and with recent chronic wound healing problems on his right foot stump, who stated he has had problems with his medications and his oxygen supply due to living with his sister now. He lost his apartment approximately a month ago. He uses oxygen at 3 L continuously. He stated that for the past 3 weeks, he had been using his portable oxygen tank since his sister, whom he lives with now does not like noise in the house and his oxygen concentrator is in storage. Yesterday morning he used his last oxygen tank and since then he has been feeling short of breath. He stated he had been compliant with his medications and he used his dose of insulin as prescribed today in the morning. Nevertheless, his sugars were in the 500s. He was hypoxemic when he presented and his blood pressure was in the 200s range. He admitted that he is supposed to leave his sister's apartment on 10/04/18 and he has no other apartment available at this point. There may be a possibility of the patient staying in his nephew's place in [place], but that has not been finalized. The patient is going to be admitted with a diagnosis of uncontrolled hypertension, uncontrolled diabetes and hypoxemia. PAST MEDICAL HISTORY: 1. History of chronic nonhealing wound on the right foot with cast being placed every Monday and exchanged every Monday. The patient stated that last Monday due to [place] that had not been done, now the cast had been on for approximately 10 days and it is usually changed by the orthopedic service with Dr. Galarza. 2. 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 3. History of cataract surgery bilaterally. 4. Diabetes, insulin-dependent, complicated by neuropathy and nephropathy with chronic kidney disease stage 5. 5. History of COPD with chronic hypoxic respiratory failure with oxygen at 3 liters continuously. 6. History of CHF with preserved EF. 7. History of chronic kidney disease stage 5 due to diabetes with metabolic acidosis in the past. 8. He has a history of hypertension with medication noncompliance in the past. 9. History of anemia of chronic disease. 10. Anxiety. MEDICATIONS: At home include: 1. Oxygen continuously at 3 liters. 2. Insulin Lantus 46 units daily. 3. Symbicort 160/4.5 one inhalation daily. 4. Sodium bicarbonate one tablet b.i.d. 650 mg. 5. Neurontin 300 mg b.i.d. 6. Furosemide 40 mg b.i.d. 7. Insulin Novolin 15 to 20 units subcutaneously b.i.d. on a sliding scale. 8. Labetalol 200 mg b.i.d. ALLERGIES: Include PEANUTS, SPINACH, STRAWBERRY, BACTRIM. FAMILY HISTORY: Mother from ALS. Father from dementia. SOCIAL HISTORY: The patient is basically homeless. He lives with his sister, but he will not be able to do that past 10/04/18. He has history of smoking a pack per day for 30 years, quit smoking 10 years ago. He denies any alcohol or drug use. His healthcare proxy is his best friend, Rolando. REVIEW OF SYSTEMS: The patient denies chest pain. Complains of shortness of breath that was relieved after he was placed on oxygen in the emergency department. He denies any headache. His appetite has been good, although he has not eaten that much today. He stated that he had a bagel and cereal. All the remaining 12 systems were reviewed with the patient and were otherwise negative. PHYSICAL EXAMINATION GENERAL: The patient is a pleasant 53-year-old male who is in no acute distress. He is alert, awake and oriented x3. VITAL SIGNS: Blood pressure on presentation was over 200/100, currently is 127/ 74; heart rate of 91 and regular; respiratory rate 21; oxygen saturation 98% on 3 L of oxygen cannula; temperature of 98.4. HEENT: Head atraumatic and normocephalic. Eyes: Pupils are equal and reactive to light and accommodation. Oropharynx is clear. Mucosa moist. NECK: Supple. No JVD. No bruits bilaterally. RESPIRATORY: Clear to auscultation bilaterally. CARDIOVASCULAR: Regular rate and rhythm. No murmurs. ABDOMEN: Soft and nontender. Bowel sounds present in all 4 quadrants. EXTREMITIES: There is no edema. Pulses +2 bilaterally with the exception that was not palpable on the right foot due to cast present on the right foot below the knee. The left foot is status post transmetatarsal amputation with stump healed well with no evidence of wound. The right side foot cast was not removed for evaluation. NEURO EVALUATION: Speech is clear. Cranial nerves II through XII are grossly intact. Motor strength is 5/5 bilaterally. PSYCHIATRIC EVALUATION: Oriented x3 with no evidence of anxiety or depression. DIAGNOSTIC STUDIES/LABORATORY DATA: Laboratory data showed white blood cell count of 4.7, hemoglobin of 11.1, hematocrit of 28, and platelets of 143. ABG showed pH of 7.26, pCO2 of 40, pO2 of 128, bicarb of 18, oxygen saturation 98.8. Sodium was 127, potassium 4.7, chloride 101, carbon dioxide 17, BUN 62, creatinine 5.08 and glucose of 547. Troponin of 0.08. Liver function tests unremarkable. Brain natriuretic peptide was 281. The patient's portable chest x-ray reviewed prior to the outpatient radiology report shows vascular congestion and poor inspiration. The patient's EKG showed normal sinus rhythm with no ST changes. ASSESSMENT AND PLAN: 1. The patient's uncontrolled hypertension is likely due to medication noncompliance. The patient missed his dose of 200 mg of p.o. labetalol tonight. He received a dose of IV hydralazine with good results with his blood pressure lowering significantly. 2. The patient's acute shortness of breath was due to his chronic hypoxemia with respiratory failure and just that he ran out of oxygen. He is going to be supplied with 3 liters of oxygen continuously and Social Work is going to be consulted in regards to the patient's needs. 3. The patient's uncontrolled diabetes is also likely due to dietary noncompliance and medication noncompliance. The patient stated that he did take his insulin glargine in the morning that he did not use any of his scheduled insulin with his meals. At this time, the patient is going to be continued on his insulin Lantus with the presence of a sliding scale. 4. The patient's mildly elevated troponin is likely due to demand ischemia. He complains of no chest pain. His EKG is unremarkable. 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 5. The patient's right leg chronic nonhealing wound is currently casted. Our service will contact Dr. Galarza's service to likely have the cast replaced while the patient is in the hospital. 6. The patient is nonanion gap metabolic acidosis due to renal failure. The patient is going to be increased on his sodium bicarbonate to 3 times a day from 2 times a day. He is otherwise asymptomatic. 7. For DVT prophylaxis, the patient is going to be placed on heparin subcutaneously. 8. The patient's code status is full. TIME SPENT: Approximately 72 minutes was spent on admission of this patient, more than half of that time was spent [id number] with the patient during the interview and physical exam. [id number]/[facility] #: [id number] KEDAR
[2018-10-01] MEDS: Sodium Bicarbonate (ANTACID)* 650 MG TAB PO SCH ×4 (03:00→21:41)
[2018-10-01] MEDS: Labetalol TAB* 200 MG PO SCH ×3 (03:00→21:42)
[2018-10-01] MEDS: Acetaminophen TAB* 325 MG PO PRN (03:00)
[2018-10-01] MEDS: Loperamide CAP* 2 MG PO PRN (05:04)
[2018-10-01] MEDS: Heparin VIAL(*) 5000 UNITS/ML VIAL (FIVE THOUSAND) SUBCUT SCH ×3 (05:05→21:41)
[2018-10-01 07:11] LABS: ABS Basophils 0 10^3/ul (0-0.2); ABS Eosinophils 0.1 10^3/ul (0-0.6); ABS Lymphocytes 0.7 10^3/ul (1.0-4.8); ABS Monocytes 0.4 10^3/ul (0-0.8); ABS Neutrophils 2.7 10^3/ul (1.5-7.7); ABS Nucleated RBC 0 10^3/ul; Eosinophil % 2.7 %; Hematocrit 25 % (42-52); Hemoglobin 8.2 g/dl (14.0-18.0); Lymphocyte % 17.8 %; Mean Corpuscular HGB Conc 33 g/dl (31-36); Mean Corpuscular Hemoglobin 29 pg (27-31); Mean Corpuscular Volume 87 fL (80-94); Nucleated Red Blood Cells % 0.1; Platelet Count 114 10^3/ul (150-450); Red Blood Count 2.83 10^6/ul (4.00-5.40); Red Cell Distribution Width 17 % (10.5-15)
[2018-10-01 07:25] LABS: Calcium 8.4 mg/dL (8.6-10.3); EGFR Non-African American 11.9 (>60); Potassium 4.2 mmol/L (3.5-5.0)
[2018-10-01] MEDS: Furosemide TAB* 40 MG PO SCH ×2 (08:27→17:42)
[2018-10-01] MEDS: Gabapentin CAP(*) 300 MG PO SCH ×2 (08:28→21:42)
[2018-10-01] MEDS: Insulin LISPRO* 1 UNITS UNIT SUBCUT SCH ×5 (08:28→21:52)
[2018-10-01] MEDS: Docusate CAP* 100 MG PO SCH ×2 (08:29→21:41)
[2018-10-01] MEDS: Insulin GLARGINE(*) 1 UNITS UNIT SUBCUT SCH (12:54)
[2018-10-01] MEDS ORDERED: Insulin LISPRO* 1 UNITS UNIT SUBCUT SCH (16:48)
--- NOTE | 2018-10-01 16:54 | PN ---
Subjective Date of Service: 10/01/18 Interval History: SOB resolved Has no other complaints except for cast on RLE that feels wet and needs to be changed He is unclear where he will ultimately live if discharged. He is dismissive about the threat this event has posed to his life. Objective Active Medications: Acetaminophen (Tylenol Tab*) 650 mg PO Q4H PRN PRN Reason: FEVER/PAIN Last Admin: 10/01/18 03:00 Dose: 650 mg Al Hydrox/Mg Hydrox/Simethicone (Maalox Plus*) 30 ml PO Q6H PRN PRN Reason: INDIGESTION Dextrose (D50w Syringe 50 Ml*) 12.5 gm IV PUSH .FOR FS < 60 - SS PRN PRN Reason: FS < 60 Docusate Sodium (Colace Cap*) 100 mg PO BID [facility] Last Admin: 10/01/18 08:29 Dose: Not Given Furosemide (Lasix Tab*) 40 mg PO 0800,1700 [facility] Last Admin: 10/01/18 08:27 Dose: 40 mg Gabapentin (Neurontin Cap(*)) 300 mg PO BID [facility] Last Admin: 10/01/18 08:28 Dose: 300 mg Heparin Sodium (Porcine) (Heparin Vial(*)) 5,000 units SUBCUT Q8HR [facility] Last Admin: 10/01/18 12:36 Dose: 5,000 units Insulin Glargine (Lantus(*)) 42 units SUBCUT Q24H [facility] Last Admin: 10/01/18 12:54 Dose: 42 unit Insulin Human Lispro (Humalog*) 0 units SUBCUT ACHS [facility]; Protocol Labetalol HCl (Trandate Tab*) 200 mg PO BID [facility] Last Admin: 10/01/18 08:29 Dose: 200 mg Loperamide HCl (Imodium Cap*) 2 mg PO ONCE PRN PRN Reason: DIARRHEA Last Admin: 10/01/18 05:04 Dose: 2 mg Sodium Bicarbonate (Sodium Bicarbonate (Antacid)*) 650 mg PO TID [facility] Last Admin: 10/01/18 12:36 Dose: 650 mg Vital Signs - 8 hr 10/01/18 10/01/18 10/01/18 10:11 11:38 16:09 Temperature 98.2 F 97.9 F Pulse Rate 67 71 Respiratory 16 16 22 Rate Blood Pressure 148/83 162/89 (mmHg) O2 Sat by Pulse 99 99 Oximetry Oxygen Devices in Use Now: Nasal Cannula Appearance: sitting up in bed, NAD Eyes: No Scleral Icterus, PERRLA Ears/Nose/Mouth/Throat: NL Teeth, Lips, Gums, Clear Oropharnyx Neck: NL Appearance and Movements; NL JVP, Trachea Midline Respiratory: Symmetrical Chest Expansion and Respiratory Effort, Clear to Auscultation Cardiovascular: RRR Abdominal: NL Sounds; No Tenderness; No Distention Lymphatic: No Cervical Adenopathy Extremities: - - b/l LE TMA, right LE in cast Neurological: Alert and Oriented x 3 Result Diagrams: 10/01/18 06:57 10/01/18 06:57 Microbiology and Other Data: Microbiology 09/30/18 21:40 Urine Culture - Preliminary Urine Enterococcus Faecalis Assess/Plan/Problems-Billing Assessment: 53 yo M h/o chronic respiratory failure on home O2, IDDM, HTN, CKD presented with SOB, hypoxia, hypertension and hyperglycemia after running out of oxygen at home. - Patient Problems (1) Acute respiratory failure with hypoxia Comment: resolved with administration of oxygen in ED pulm vascular congestion on CXR but lungs clear on exam and pt without other ovidence of volume overload c/w home lasix (2) CKD (chronic kidney disease) stage 5, GFR less than 15 ml/min Priority: High Comment: dose meds accordingly PO bicarb increased (3) COPD (chronic obstructive pulmonary disease) Comment: - No sign of exacerbation - not on home controller medications (4) Diabetes mellitus, type 2 Comment: - Continue lantus - lispro SS increased to highest dose (5) Hypertension Comment: - Continue labetalol (increase to 200 mg BID) (6) DVT prophylaxis Comment: HSQ
[2018-10-02] MEDS: Heparin VIAL(*) 5000 UNITS/ML VIAL (FIVE THOUSAND) SUBCUT SCH ×3 (05:43→20:33)
[2018-10-02 06:50] LABS: ABS Basophils 0 10^3/ul (0-0.2); ABS Eosinophils 0.1 10^3/ul (0-0.6); ABS Lymphocytes 0.8 10^3/ul (1.0-4.8); ABS Monocytes 0.4 10^3/ul (0-0.8); ABS Neutrophils 2.4 10^3/ul (1.5-7.7); ABS Nucleated RBC 0 10^3/ul; Eosinophil % 3.2 %; Hematocrit 25 % (42-52); Hemoglobin 8.2 g/dl (14.0-18.0); Lymphocyte % 21.6 %; Mean Corpuscular HGB Conc 32 g/dl (31-36); Mean Corpuscular Hemoglobin 28 pg (27-31); Mean Corpuscular Volume 88 fL (80-94); Mean Platelet Volume 8.4 fL (7.4-10.4); Nucleated Red Blood Cells % 0; Platelet Count 128 10^3/ul (150-450); Red Blood Count 2.88 10^6/ul (4.00-5.40); Red Cell Distribution Width 17 % (10.5-15); White Blood Count 3.8 10^3/ul (3.5-10.8)
[2018-10-02 07:09] LABS: Calcium 8.2 mg/dL (8.6-10.3); EGFR Non-African American 10.8 (>60); Potassium 4.5 mmol/L (3.5-5.0)
[2018-10-02] MEDS: Sodium Bicarbonate (ANTACID)* 650 MG TAB PO SCH ×3 (07:43→20:33)
[2018-10-02] MEDS: Labetalol TAB* 200 MG PO SCH ×2 (07:43→20:34)
[2018-10-02] MEDS: Furosemide TAB* 40 MG PO SCH ×2 (07:43→15:30)
[2018-10-02] MEDS: Gabapentin CAP(*) 300 MG PO SCH ×2 (07:43→20:32)
[2018-10-02] MEDS: Docusate CAP* 100 MG PO SCH ×2 (07:44→20:32)
[2018-10-02] MEDS: Insulin LISPRO* 1 UNITS UNIT SUBCUT SCH ×4 (07:48→20:45)
[2018-10-02] MEDS ORDERED: Insulin GLARGINE(*) 1 UNITS UNIT SUBCUT SCH ×2 (09:00→21:00)
[2018-10-02] MEDS: Insulin GLARGINE(*) 1 UNITS UNIT SUBCUT SCH (13:30)
--- NOTE | 2018-10-02 14:57 | PN ---
Progress Note - Progress Note Date of Service: 10/02/18 SOAP: Subjective: [Patient reports breakdown of cast R LE. Per plan it is to be removed prior to discharge. Denies pain, SOB, CP, nausea] Objective: [A and O x 3, NAD Cast on LLE with botton=m part of hard cast missing. Cast removed. Inspection reveals healing ulcer plantar aspect of foot. Clean, dry. No sign of infection. Skin otherwise intact.] Assessment: [53 yo male s/p ulcer plantar aspect R foot - healing] Plan: [Soft, dry dressing applied to R foot. NWB R foot D/C per medicine F/U with Dr. Galarza upon discharge]
--- NOTE | 2018-10-02 15:17 | PN ---
Subjective Date of Service: 10/02/18 Interval History: Pt is feeling well. He is happy his cast has been replaced. He denies any pain. He has been frustrated about communication in the hospital. He also states he wants to be discharged to his sister's house but state he will have to leave on Monday10/05/18. He then states he is thinking about house sitting for his nephew in [place]. Objective Active Medications: Acetaminophen (Tylenol Tab*) 650 mg PO Q4H PRN PRN Reason: FEVER/PAIN Last Admin: 10/01/18 03:00 Dose: 650 mg Al Hydrox/Mg Hydrox/Simethicone (Maalox Plus*) 30 ml PO Q6H PRN PRN Reason: INDIGESTION Amlodipine Besylate (Norvasc Tab*) 5 mg PO DAILY [facility] Dextrose (D50w Syringe 50 Ml*) 12.5 gm IV PUSH .FOR FS < 60 - SS PRN PRN Reason: FS < 60 Docusate Sodium (Colace Cap*) 100 mg PO BID [facility] Last Admin: 10/02/18 07:44 Dose: 100 mg Furosemide (Lasix Tab*) 40 mg PO 0800,1700 [facility] Last Admin: 10/02/18 07:43 Dose: 40 mg Gabapentin (Neurontin Cap(*)) 300 mg PO BID [facility] Last Admin: 10/02/18 07:43 Dose: 300 mg Heparin Sodium (Porcine) (Heparin Vial(*)) 5,000 units SUBCUT Q8HR [facility] Last Admin: 10/02/18 13:31 Dose: 5,000 units Insulin Glargine (Lantus(*)) 10 units SUBCUT BEDTIME [facility] Insulin Glargine (Lantus(*)) 42 units SUBCUT DAILY [facility] Insulin Human Lispro (Humalog*) 0 units SUBCUT ACHS [facility]; Protocol Last Admin: 10/02/18 13:29 Dose: 9 units Labetalol HCl (Trandate Tab*) 200 mg PO BID [facility] Last Admin: 10/02/18 07:43 Dose: 200 mg Loperamide HCl (Imodium Cap*) 2 mg PO ONCE PRN PRN Reason: DIARRHEA Last Admin: 10/01/18 05:04 Dose: 2 mg Sodium Bicarbonate (Sodium Bicarbonate (Antacid)*) 650 mg PO TID [facility] Last Admin: 10/02/18 13:29 Dose: 650 mg Vital Signs - 8 hr 10/02/18 10/02/18 10/02/18 07:43 07:55 08:00 Temperature 98.2 F Pulse Rate 72 Respiratory 18 16 16 Rate Blood Pressure 153/89 (mmHg) O2 Sat by Pulse 100 Oximetry 10/02/18 11:40 Temperature 98.0 F Pulse Rate 71 Respiratory 16 Rate Blood Pressure 148/86 (mmHg) O2 Sat by Pulse 100 Oximetry Oxygen Devices in Use Now: None Appearance: Middle aged morbidly obese male sitting in a wheelchair, NAD Eyes: No Scleral Icterus Ears/Nose/Mouth/Throat: Mucous Membranes Moist Respiratory: Symmetrical Chest Expansion and Respiratory Effort, Clear to Auscultation Cardiovascular: NL Sounds; No Murmurs; No JVD, RRR, No Edema Abdominal: NL Sounds; No Tenderness; No Distention Extremities: No Clubbing, Cyanosis Skin: No Nodules or Sclerosis, - Neurological: Alert and Oriented x 3 Result Diagrams: 10/02/18 06:25 10/02/18 06:25 Microbiology and Other Data: Microbiology 09/30/18 21:40 Urine Culture - Preliminary Urine Enterococcus Faecalis Assess/Plan/Problems-Billing Mr Galo is a 53 yo M with a h/o chronic respiratory failure on home O2, type II DM, HTN, and CKD stage V presented with SOB, hypoxia, uncontrolled hypertension and hyperglycemia after running out of oxygen at home and not taking his medications. - Patient Problems (1) Diabetes mellitus, type 2 Current Visit: Yes Status: Chronic Comment: Uncontrolled-last A1c was 9.9% early 09/2018. I have added lantus 10 units at bedtime and kept 42 units in the AM. Monitor sugars and adjust as needed. (2) Acute respiratory failure with hypoxia Current Visit: Yes Status: Acute Code(s): J96.01 - ACUTE RESPIRATORY FAILURE WITH HYPOXIA SNOMED Code(s): 94094877 Comment: Resolved with administration of oxygen in ED. Continue lasix at home dose. (3) CKD (chronic kidney disease) stage 5, GFR less than 15 ml/min Current Visit: Yes Status: Acute Priority: High Code(s): N18.5 - CHRONIC KIDNEY DISEASE, STAGE 5 SNOMED Code(s): 326407280 Comment: Creatinine is at baseline. Monitor intermittently and follow up with nephrology as an outpatient. (4) Hypertension Current Visit: Yes Status: Chronic Code(s): I10 - ESSENTIAL (PRIMARY) HYPERTENSION SNOMED Code(s): 89387019 Comment: Uncontrolled. Continue labetolol and add amlodipine 5mg daily. (5) COPD (chronic obstructive pulmonary disease) Current Visit: Yes Status: Chronic Code(s): J44.9 - CHRONIC OBSTRUCTIVE PULMONARY DISEASE, UNSPECIFIED SNOMED Code(s): 24069688 Comment: No signs of exacerbation. (6) DVT prophylaxis Current Visit: Yes Status: Acute Code(s): LDJ4964 - SNOMED Code(s): 623926778 Comment: SQ heparin
[2018-10-02] MEDS: amLODIPine TAB* 5 MG PO SCH (15:30)
[2018-10-02] MEDS: Acetaminophen TAB* 325 MG PO PRN (23:16)
[2018-10-03] MEDS: Benzocaine/Menthol LOZ* 1 LOZENGE PO PRN ×5 (03:46→22:44)
[2018-10-03] MEDS: Heparin VIAL(*) 5000 UNITS/ML VIAL (FIVE THOUSAND) SUBCUT SCH ×3 (05:14→21:06)
[2018-10-03] MEDS ORDERED: Loperamide CAP* 2 MG ONE (06:12)
[2018-10-03] MEDS: Loperamide CAP* 2 MG PO PRN ×2 (06:14→10:45)
[2018-10-03] MEDS: Docusate CAP* 100 MG PO SCH ×2 (08:19→21:05)
[2018-10-03] MEDS: Insulin GLARGINE(*) 1 UNITS UNIT SUBCUT SCH ×2 (08:38→21:00)
[2018-10-03] MEDS: Furosemide TAB* 40 MG PO SCH ×2 (08:39→18:03)
[2018-10-03] MEDS: Gabapentin CAP(*) 300 MG PO SCH ×2 (08:39→20:39)
[2018-10-03] MEDS: Insulin LISPRO* 1 UNITS UNIT SUBCUT SCH ×4 (08:39→21:04)
[2018-10-03] MEDS: Labetalol TAB* 200 MG PO SCH ×2 (08:40→20:39)
[2018-10-03] MEDS: amLODIPine TAB* 5 MG PO SCH (08:40)
[2018-10-03] MEDS: Sodium Bicarbonate (ANTACID)* 650 MG TAB PO SCH ×3 (08:40→20:41)
--- NOTE | 2018-10-03 11:13 | PN ---
Subjective Date of Service: 10/03/18 Interval History: Pt is feeling poorly today. He states he has been having copious diarrhea this AM. (5 times already today). He also has a dry cough. He requests a cough drop. Objective Active Medications: Acetaminophen (Tylenol Tab*) 650 mg PO Q4H PRN PRN Reason: FEVER/PAIN Last Admin: 10/02/18 23:16 Dose: 650 mg Al Hydrox/Mg Hydrox/Simethicone (Maalox Plus*) 30 ml PO Q6H PRN PRN Reason: INDIGESTION Amlodipine Besylate (Norvasc Tab*) 10 mg PO DAILY [facility] Dextrose (D50w Syringe 50 Ml*) 12.5 gm IV PUSH .FOR FS < 60 - SS PRN PRN Reason: FS < 60 Docusate Sodium (Colace Cap*) 100 mg PO BID [facility] Last Admin: 10/03/18 08:19 Dose: Not Given Furosemide (Lasix Tab*) 40 mg PO 0800,1700 [facility] Last Admin: 10/03/18 08:39 Dose: 40 mg Gabapentin (Neurontin Cap(*)) 300 mg PO BID [facility] Last Admin: 10/03/18 08:39 Dose: 300 mg Heparin Sodium (Porcine) (Heparin Vial(*)) 5,000 units SUBCUT Q8HR [facility] Last Admin: 10/03/18 05:14 Dose: 5,000 units Insulin Glargine (Lantus(*)) 42 units SUBCUT DAILY [facility] Last Admin: 10/03/18 08:38 Dose: 42 units Insulin Glargine (Lantus(*)) 15 units SUBCUT BEDTIME [facility] Insulin Human Lispro (Humalog*) 0 units SUBCUT ACHS [facility]; Protocol Last Admin: 10/03/18 08:39 Dose: 3 units Insulin Human Regular (Insulin Regular(*)) 10 units SUBCUT AC [facility] Labetalol HCl (Trandate Tab*) 200 mg PO BID [facility] Last Admin: 10/03/18 08:40 Dose: 200 mg Loperamide HCl (Imodium Cap*) 2 mg PO ONCE PRN PRN Reason: DIARRHEA Last Admin: 10/03/18 06:14 Dose: 2 mg Loperamide HCl (Imodium Cap*) 2 mg PO .SEE DIRECTIONS PRN PRN Reason: DIARRHEA Last Admin: 10/03/18 10:45 Dose: 2 mg Sodium Bicarbonate (Sodium Bicarbonate (Antacid)*) 650 mg PO TID [facility] Last Admin: 10/03/18 08:40 Dose: 650 mg Throat Lozenges (Chloraseptic Hui*) 1 hui PO Q6H PRN PRN Reason: SORE THROAT Last Admin: 10/03/18 10:33 Dose: 1 hui Vital Signs - 8 hr 10/03/18 10/03/18 10/03/18 03:16 06:14 08:21 Temperature 97.8 F Pulse Rate 70 Respiratory 18 18 16 Rate Blood Pressure 138/77 (mmHg) O2 Sat by Pulse 96 Oximetry 10/03/18 10/03/18 10/03/18 08:39 09:31 10:45 Temperature Pulse Rate Respiratory 16 16 Rate Blood Pressure 155/95 (mmHg) O2 Sat by Pulse 100 Oximetry Oxygen Devices in Use Now: None Appearance: Morbidly obese middle aged male sitting up in bed, NAD Eyes: No Scleral Icterus Ears/Nose/Mouth/Throat: Mucous Membranes Moist Respiratory: Symmetrical Chest Expansion and Respiratory Effort, Clear to Auscultation Cardiovascular: NL Sounds; No Murmurs; No JVD, RRR, - - trace Le edema Abdominal: NL Sounds; No Tenderness; No Distention Extremities: No Clubbing, Cyanosis, - - s/p TMA bilaterally Skin: No Nodules or Sclerosis Neurological: Alert and Oriented x 3 Result Diagrams: 10/02/18 06:25 10/02/18 06:25 Microbiology and Other Data: Microbiology 09/30/18 21:40 Urine Culture - Preliminary Urine Enterococcus Faecalis Assess/Plan/Problems-Billing Mr Galo is a 53 yo M with a h/o chronic respiratory failure on home O2, type II DM, HTN, and CKD stage V presented with SOB, hypoxia, uncontrolled hypertension and hyperglycemia after running out of oxygen at home and not taking his medications. - Patient Problems (1) Diarrhea Current Visit: Yes Status: Acute Code(s): R19.7 - DIARRHEA, UNSPECIFIED SNOMED Code(s): 57035143 Comment: Pt reports 5 episodes of diarrhea this AM alone. Will start imodium prn. He states the diarrhea has been an intermittent problem as an outpatient. ? secondary to sweet and low use. Pt does not feel he can go home today with as much diarrhea as he has been having. Likely home tomorrow. (2) Diabetes mellitus, type 2 Current Visit: Yes Status: Chronic Comment: Sugar this AM is under 200 but still markedly elevated for a fasting sugar. Will increase lantus at bedtime to 15 units and add back regular insulin 10 units with meals. Continue to follow the sugars. (3) Acute respiratory failure with hypoxia Current Visit: Yes Status: Acute Code(s): J96.01 - ACUTE RESPIRATORY FAILURE WITH HYPOXIA SNOMED Code(s): 97233756 Comment: Resolved with administration of oxygen in ED. Continue lasix at home dose. (4) CKD (chronic kidney disease) stage 5, GFR less than 15 ml/min Current Visit: Yes Status: Acute Priority: High Code(s): N18.5 - CHRONIC KIDNEY DISEASE, STAGE 5 SNOMED Code(s): 132538562 Comment: Creatinine is at baseline. Monitor intermittently and follow up with nephrology as an outpatient. (5) Hypertension Current Visit: Yes Status: Chronic Code(s): I10 - ESSENTIAL (PRIMARY) HYPERTENSION SNOMED Code(s): 61740379 Comment: Still uncontrolled. Continue labetolol and increase amlodipine to 10mg daily. (6) COPD (chronic obstructive pulmonary disease) Current Visit: Yes Status: Chronic Code(s): J44.9 - CHRONIC OBSTRUCTIVE PULMONARY DISEASE, UNSPECIFIED SNOMED Code(s): 98269036 Comment: No signs of exacerbation. (7) DVT prophylaxis Current Visit: Yes Status: Acute Code(s): NRC4969 - SNOMED Code(s): 858503669 Comment: SQ heparin
[2018-10-03] MEDS: Benzonatate CAP* 100 MG PO PRN (12:21)
[2018-10-03] MEDS: Insulin REGULAR(*) 1 UNITS UNIT SUBCUT SCH ×2 (12:22→18:04)
[2018-10-04] MEDS: Benzocaine/Menthol LOZ* 1 LOZENGE PO PRN ×6 (00:44→22:27)
[2018-10-04] MEDS: Benzonatate CAP* 100 MG PO PRN ×3 (01:50→20:21)
[2018-10-04] MEDS: Heparin VIAL(*) 5000 UNITS/ML VIAL (FIVE THOUSAND) SUBCUT SCH ×3 (04:45→21:53)
[2018-10-04] MEDS: Acetaminophen TAB* 325 MG PO PRN ×2 (04:53→16:43)
[2018-10-04] MEDS: Docusate CAP* 100 MG PO SCH ×2 (08:44→20:21)
[2018-10-04] MEDS: Insulin REGULAR(*) 1 UNITS UNIT SUBCUT SCH ×3 (08:55→17:31)
[2018-10-04] MEDS: Insulin LISPRO* 1 UNITS UNIT SUBCUT SCH ×4 (08:55→21:52)
[2018-10-04] MEDS: Sodium Bicarbonate (ANTACID)* 650 MG TAB PO SCH ×3 (08:56→20:20)
[2018-10-04] MEDS: Furosemide TAB* 40 MG PO SCH ×2 (08:56→16:43)
[2018-10-04] MEDS: Labetalol TAB* 200 MG PO SCH ×2 (08:56→20:21)
[2018-10-04] MEDS: amLODIPine TAB* 5 MG PO SCH (08:56)
[2018-10-04] MEDS: Gabapentin CAP(*) 300 MG PO SCH ×2 (08:56→20:21)
[2018-10-04] MEDS: Insulin GLARGINE(*) 1 UNITS UNIT SUBCUT SCH ×2 (08:56→21:52)
[2018-10-04] MEDS ORDERED: Ondansetron ODT TAB* 4 MG SL PRN (15:19)
[2018-10-04] MEDS: Loperamide CAP* 2 MG PO PRN (15:34)
--- NOTE | 2018-10-04 16:30 | DCNOTE ---
Subjective Date of Service: 10/04/18 Interval History: Patient seen and examined. No aucte overnight events, still with mild cough, no acute SOB, no further complaints. Objective Active Medications: Acetaminophen (Tylenol Tab*) 650 mg PO Q4H PRN PRN Reason: FEVER/PAIN Last Admin: 10/04/18 04:53 Dose: 650 mg Al Hydrox/Mg Hydrox/Simethicone (Maalox Plus*) 30 ml PO Q6H PRN PRN Reason: INDIGESTION Amlodipine Besylate (Norvasc Tab*) 10 mg PO DAILY [facility] Last Admin: 10/04/18 08:56 Dose: 10 mg Benzonatate (Tessalon Cap*) 200 mg PO TID PRN PRN Reason: cough Last Admin: 10/04/18 12:26 Dose: 200 mg Dextrose (D50w Syringe 50 Ml*) 12.5 gm IV PUSH .FOR FS < 60 - SS PRN PRN Reason: FS < 60 Docusate Sodium (Colace Cap*) 100 mg PO BID [facility] Last Admin: 10/04/18 08:44 Dose: Not Given Furosemide (Lasix Tab*) 40 mg PO 0800,1700 [facility] Last Admin: 10/04/18 08:56 Dose: 40 mg Gabapentin (Neurontin Cap(*)) 300 mg PO BID [facility] Last Admin: 10/04/18 08:56 Dose: 300 mg Heparin Sodium (Porcine) (Heparin Vial(*)) 5,000 units SUBCUT Q8HR [facility] Last Admin: 10/04/18 12:29 Dose: 5,000 units Insulin Glargine (Lantus(*)) 42 units SUBCUT DAILY [facility] Last Admin: 10/04/18 08:56 Dose: 42 units Insulin Glargine (Lantus(*)) 15 units SUBCUT BEDTIME [facility] Last Admin: 10/03/18 21:00 Dose: 15 units Insulin Human Lispro (Humalog*) 0 units SUBCUT ACHS [facility]; Protocol Last Admin: 10/04/18 12:28 Dose: 3 units Insulin Human Regular (Insulin Regular(*)) 10 units SUBCUT AC [facility] Last Admin: 10/04/18 12:27 Dose: 10 units Labetalol HCl (Trandate Tab*) 200 mg PO BID [facility] Last Admin: 10/04/18 08:56 Dose: 200 mg Loperamide HCl (Imodium Cap*) 2 mg PO ONCE PRN PRN Reason: DIARRHEA Last Admin: 10/03/18 06:14 Dose: 2 mg Loperamide HCl (Imodium Cap*) 2 mg PO .SEE DIRECTIONS PRN PRN Reason: DIARRHEA Last Admin: 10/04/18 15:34 Dose: 2 mg Ondansetron HCl (Zofran Odt Tab*) 4 mg SL Q6H PRN PRN Reason: NAUSEA/VOMITING Last Admin: 10/04/18 15:34 Dose: 4 mg Sodium Bicarbonate (Sodium Bicarbonate (Antacid)*) 650 mg PO TID JOSE ENRIQUE Last Admin: 10/04/18 12:26 Dose: 650 mg Throat Lozenges (Chloraseptic Hui*) 1 hui PO Q2HR PRN PRN Reason: SORE THROAT Last Admin: 10/04/18 15:35 Dose: 1 hui Vital Signs - 8 hr 10/04/18 10/04/18 10/04/18 08:56 11:27 12:18 Temperature 97.9 F Pulse Rate 66 Respiratory 14 16 14 Rate Blood Pressure 137/73 (mmHg) O2 Sat by Pulse 100 Oximetry 10/04/18 15:34 Temperature Pulse Rate Respiratory 16 Rate Blood Pressure (mmHg) O2 Sat by Pulse Oximetry Oxygen Devices in Use Now: Nasal Cannula Appearance: alert, pale NAD Eyes: No Scleral Icterus, PERRLA Ears/Nose/Mouth/Throat: NL Teeth, Lips, Gums Neck: NL Appearance and Movements; NL JVP, Trachea Midline Respiratory: Symmetrical Chest Expansion and Respiratory Effort, Clear to Auscultation Cardiovascular: NL Sounds; No Murmurs; No JVD, RRR Abdominal: NL Sounds; No Tenderness; No Distention Extremities: No Edema, No Clubbing, Cyanosis, - - bilateral midfoot amputations , Right stump with chronic non-infected wound Skin: - - right chronic foot wound Neurological: Alert and Oriented x 3, NL Muscle Strength and Tone Nutrition: Taking PO's Result Diagrams: 10/02/18 06:25 10/02/18 06:25 Microbiology and Other Data: Microbiology 09/30/18 21:40 Urine Culture - Preliminary Urine Enterococcus Faecalis Assess/Plan/Problems-Billing This is a 53 yo M with a h/o chronic respiratory failure on home O2, type II DM , HTN, and CKD stage V presented with SOB, hypoxia, uncontrolled hypertension and hyperglycemia after running out of oxygen at home and not taking his medications. - Patient Problems (1) Diarrhea Code(s): R19.7 - DIARRHEA, UNSPECIFIED SNOMED Code(s): 83117658 Comment: - Resolved today, continue immodium PRN - Had one bout of emesis today while nurse was trying to DC the patient, trial ODT zofran - Etiology unclear, likely viral, tolerating PO - DC IVF and monitor (2) Acute respiratory failure with hypoxia Code(s): J96.01 - ACUTE RESPIRATORY FAILURE WITH HYPOXIA SNOMED Code(s): 67152196 Comment: - continue O2 PRN, also uses at home intermittently - Normal sats off O2 today (3) CKD (chronic kidney disease) stage 5, GFR less than 15 ml/min Code(s): N18.5 - CHRONIC KIDNEY DISEASE, STAGE 5 SNOMED Code(s): 632898977 Comment: - At baseline, follow [facility] nephro outpatient - Continue bicarb for acidosis TID (4) COPD (chronic obstructive pulmonary disease) Code(s): J44.9 - CHRONIC OBSTRUCTIVE PULMONARY DISEASE, UNSPECIFIED SNOMED Code(s): 55002739 Comment: - Not in exacerbation (5) Diabetes mellitus, type 2 Comment: - Lantus increased to 42units am and 15 units PM with regular 10 units TID, seems much improved, will DC on same (6) Hypertension Code(s): I10 - ESSENTIAL (PRIMARY) HYPERTENSION SNOMED Code(s): 18479087 Comment: - BP well controlled (7) Chronic diastolic (congestive) heart failure Code(s): I50.32 - CHRONIC DIASTOLIC (CONGESTIVE) HEART FAILURE SNOMED Code(s) : 307765631 Comment: - Continue home lasix, not in exacerbation (8) Wound of right foot Code(s): S91.301A - UNSPECIFIED OPEN WOUND, RIGHT FOOT, INITIAL ENCOUNTER SNOMED Code(s): 479990851 Comment: - Cast removed by ortho, continue dry dressing changes, no cellulitis/ infection noted (9) Morbid obesity Code(s): E66.01 - MORBID (SEVERE) OBESITY DUE TO EXCESS CALORIES SNOMED Code(s ): 081828758 Comment: - BMI noted, poor motivation for weight loss (10) DVT prophylaxis Code(s): GUP7158 - SNOMED Code(s): 824304742 Comment: - SQ heparin Status and Disposition: Was supposed to be discharged today, however, because of inability to get medications, was unable to make it to [facility] intake appointment (please see SW notes). Will DC in AM after meds filled and home oxygen obtained.
[2018-10-05] MEDS: Benzocaine/Menthol LOZ* 1 LOZENGE PO PRN ×5 (00:21→11:09)
[2018-10-05] MEDS: Heparin VIAL(*) 5000 UNITS/ML VIAL (FIVE THOUSAND) SUBCUT SCH (05:27)
[2018-10-05] MEDS: Furosemide TAB* 40 MG PO SCH (07:55)
[2018-10-05] MEDS: Docusate CAP* 100 MG PO SCH (07:55)
[2018-10-05] MEDS: Gabapentin CAP(*) 300 MG PO SCH (07:55)
[2018-10-05] MEDS: amLODIPine TAB* 5 MG PO SCH (07:55)
[2018-10-05] MEDS: Sodium Bicarbonate (ANTACID)* 650 MG TAB PO SCH (07:55)
[2018-10-05] MEDS: Labetalol TAB* 200 MG PO SCH (07:56)
[2018-10-05] MEDS: Insulin GLARGINE(*) 1 UNITS UNIT SUBCUT SCH (08:24)
[2018-10-05] MEDS: Insulin LISPRO* 1 UNITS UNIT SUBCUT SCH ×2 (08:24→12:19)
[2018-10-05] MEDS: Insulin REGULAR(*) 1 UNITS UNIT SUBCUT SCH ×2 (08:24→12:19)
[2018-10-05] MEDS: Benzonatate CAP* 100 MG PO PRN (08:24)
[2018-10-05 11:29] VITALS: BP 120/55
--- NOTE | 2018-10-06 00:49 | DS ---
CC: Dr. Morrison; Dr. Joaquina Concepcion; Dr. Martinez; Dr. Galarza * DISCHARGE SUMMARY: DATE OF ADMISSION: 09/30/18 DATE OF DISCHARGE: 10/05/18 PRIMARY CARE PROVIDER: Dr. Morrison. ATTENDING PHYSICIAN: Dr. Manning * (dictated by James Rodriguez NP.) PRIMARY DIAGNOSES: 1. Uncontrolled hypertension. 2. Shortness of breath. 3. Uncontrolled diabetes. 4. Mildly elevated troponin. 5. Right leg chronic nonhealing wound. SECONDARY DIAGNOSES: 1. History of chronic nonhealing wound on the right foot with cast being placed every Monday and exchanged every Monday. 2. 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 3. History of cataract surgery bilaterally. 4. Diabetes, insulin dependent, complicated by neuropathy and nephropathy with chronic kidney disease stage 5. 5. Chronic obstructive pulmonary disease with chronic hypoxic respiratory failure with oxygen 3 L continuously. 6. Congestive heart failure with preserved ejection fraction. 7. Chronic kidney disease stage 5 due to diabetes with metabolic acidosis in the past. 8. History of hypertension with medication noncompliance in the past. 9. Anemia of chronic disease. 10. Anxiety. CONSULTATIONS WHILE IN THE HOSPITAL: DORIS Angel with Ortho. PROCEDURES WHILE IN THE HOSPITAL: No procedures. STUDIES WHILE IN THE HOSPITAL: 1. Chest x-ray: Impression: Pulmonary vascular congestion. 2. Electrocardiogram: Impression: Normal sinus rhythm. DISCHARGE HOME MEDICATIONS: New home medications: 1. Amlodipine 10 mg daily. Continued home medications: 1. Oxygen continuously at 3 L. 2. Symbicort 160/4.5 one inhalation daily. 3. Bicarbonate 1 tablet b.i.d. 650 mg. 4. Neurontin 300 mg p.o. b.i.d. 5. Furosemide 40 mg p.o. b.i.d. 6. Labetalol 200 mg p.o. b.i.d. Changed home medications: 1. Insulin Lantus 46 units a.m. and 15 units p.m. Prescription was previously Lantus 46 units daily. 2. Insulin Novolin 10 units t.i.d. with meals. This prescription was originally insulin Novolin 15 to 20 units subcutaneously b.i.d. on sliding scale. Discontinued home medications: No home medications were discontinued. HISTORY OF PRESENT ILLNESS/HOSPITAL COURSE: Mr. Galo is a 53-year-old male patient with a past medical history significant for insulin-dependent diabetes, status post multiple surgeries in bilateral feet and a recent chronic wound healing problem in right foot stump; who presented to the ED on 09/30/18 with complaints of shortness of breath. Please see history and physical dictated by Dr. Beth Tobias for complete summary of events leading up to hospitalization , but in short, the patient presented to the ED with shortness of breath as he had run out of oxygen. In addition, he was found to have sugars in the 500s, he was hypoxic, and his systolic blood pressure was in the 200s range. During this hospital stay, the patient reported diarrhea, received Imodium and reports diarrhea has resolved. In addition, he had 1 bout of emesis and received Zofran with relief. His acute on chronic respiratory failure with hypoxia resolved with continuous O2 p.r.n. He was noted to have normal saturations off of O2 today. His chronic kidney disease stage 5 is at baseline. He will follow up with the canned food reconditioning inspector as an outpatient. He was noted to have some labile blood sugars; therefore, insulin was titrated up. As previously mentioned, PA from Ortho was consulted and removed cast, applied soft, dry dressing and is to follow up with Dr. Galarza on discharge. Mr. Galo is stable for discharge to home today. Vital signs as follows: Temp 97.7, HR 67, RR 16, O2 sat 95% on room air, BP 116/45. REVIEW OF SYSTEMS: A 14-point review of systems was completed and all were negative. PHYSICAL EXAM: General: Mr. Galo is an obese male, who is sitting in bed, in no acute distress, appears stated age. HEENT: EOMs intact. PERRLA. Oral mucosa is moist without lesion. Neck: Supple. No lymphadenopathy. Respiratory: Lung sounds are clear to auscultation. No rhonchi, wheezes, or rales. Aeration good. CV: S1/S2 present. No murmurs, rubs, or gallops. No edema. Abdomen: Abdomen is soft, nontender, nondistended. Bowel sounds x4. Extremities: No edema. No clubbing. Dressing intact to right lower extremity. Neuro: Speech is clear. Cranial nerves intact. No focal deficits. Psychiatric: Oriented x3. No evidence of anxiety or depression. FOLLOWUP/DISCHARGE PLAN: 1. Uncontrolled hypertension: The patient's blood pressure is currently controlled on his home dose of labetalol 200 mg p.o. b.i.d. in addition to amlodipine 10 mg p.o. daily. The patient should follow up with his primary care provider for further evaluation and adjustments to blood pressure medication. The patient should implement lifestyle changes. 2. Shortness of breath: We suspect this is due to the fact that the patient ran out of oxygen at home as he responded well to supplemental oxygen while inpatient. 3. Diabetes: The patient initially had labile blood sugars possibly due to dietary noncompliance and medication noncompliance. His Lantus insulin and regular insulin have been adjusted with good response. The patient will be discharged home on new doses as mentioned above. The patient should monitor fingersticks once daily in the morning and as needed if symptomatic and record these readings. The patient should follow up with his primary care with these readings and discuss further adjustments if needed. The patient was educated on signs and symptoms of hypoglycemia and how to treat. The patient was also educated on lifestyle changes. 4. Right leg chronic nonhealing wound: As mentioned above, cast is removed and dry dressing was applied. The patient is to continue changing dry dressing daily and as needed and follow up with Dr. Galarza upon discharge. This is a summary of a complex medical history and hospital stay. For further details, please see the entire medical record. This plan was also discussed with my attending, Dr. Manning, who agrees with my plan. TIME SPENT: Approximately 45 minutes was spent on this discharge, greater than half that time was spent [id number] with the patient discussing discharge plans and instructions. JAMES RODRIGUEZ, SONYA [id number]/[facility] #: [id number] KEDAR
== END 2018-10-05 12:35 | disposition home or self-care (01) | DRG 637 ==
LOC: ED 19:45 → MED 22:54 → OBSVTOIN 10-01 15:59 → MED 10-04 16:36
PROVIDERS: ADMIT Internal Medicine; ATTEND Internal Medicine
DX: E11.65 Type 2 diabetes mellitus with hyperglycemia (principal); J96.21 Acute and chronic respiratory failure with hypoxia; I13.2 Hypertensive heart and chronic kidney disease with heart failure and with stage 5 chronic kidney disease, or end stage renal disease; N18.5 Chronic kidney disease, stage 5; I24.8 Other forms of acute ischemic heart disease; E87.2 Acidosis; I50.32 Chronic diastolic (congestive) heart failure; Z68.41 Body mass index [BMI] 40.0-44.9, adult; E11.621 Type 2 diabetes mellitus with foot ulcer; Z99.81 Dependence on supplemental oxygen; E66.01 Morbid (severe) obesity due to excess calories; L97.519 Non-pressure chronic ulcer of other part of right foot with unspecified severity; E11.22 Type 2 diabetes mellitus with diabetic chronic kidney disease; E11.40 Type 2 diabetes mellitus with diabetic neuropathy, unspecified; E11.21 Type 2 diabetes mellitus with diabetic nephropathy; E11.36 Type 2 diabetes mellitus with diabetic cataract; D63.1 Anemia in chronic kidney disease; J44.9 Chronic obstructive pulmonary disease, unspecified; F41.9 Anxiety disorder, unspecified; R19.7 Diarrhea, unspecified; R74.8 Abnormal levels of other serum enzymes; Z91.14 Patient's other noncompliance with medication regimen; Z91.11 Patient's noncompliance with dietary regimen; Z89.432 Acquired absence of left foot; Z89.431 Acquired absence of right foot; Z79.4 Long term (current) use of insulin; Z79.899 Other long term (current) drug therapy; Z91.010 Allergy to peanuts; Z88.8 Allergy status to other drugs, medicaments and biological substances; Z91.018 Allergy to other foods; Z87.891 Personal history of nicotine dependence
CPT/HCPCS: 36415; 71045; 80048; 80053; 81003; 81015; 82803; 82947; 83880; 84484; 85025; 86850; 86900; 86901; 87077; 87086; 87186; 93005; 99284; A9270-GY; J0360; J1644